=== PATIENT | male | born 1970 | race Caucasian/White ===

== ENCOUNTER 2020-07-22 13:57 | Emergency (ER) | payer OTHER, SELFPAY ==
--- NOTE | ~2020-07-22 | CT_ITS ---
EXAMINATION: CT HEAD WITHOUT CONTRAST CLINICAL INFORMATION: Dizziness. Frequent falls. COMPARISON: Head CT 12/05/2017 TECHNIQUE: Contiguous axial imaging was performed from the skull base to vertex without intravenous administration of contrast. This CT examination was performed using dose optimization techniques as appropriate, variously including the following: *Automated exposure control *Adjustment of mA and/or kV according to patient size (this includes techniques or standardized protocols for targeted exams where dose is matched to indication/reason for exam; i.e. extremities or head) *Use of iterative reconstruction technique DLP: 766 mGy-cm FINDINGS: There is no evidence of acute intracranial hemorrhage or territorial infarction. No abnormal mass effect or midline shift is appreciated. Murdock-white differentiation is well preserved. No extra-axial fluid collections. The ventricular system and cortical sulci are normal in size for age. 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 There are areas of low density in the periventricular and subcortical white matter, most consistent with sequelae of microvascular ischemic change. The osseous structures and soft tissues are normal. The visualized paranasal sinuses and mastoid air cells are well aerated. CT/CT head/brain wo con IMPRESSION: Stable examination demonstrating no CT evidence for acute intracranial abnormality.
[2020-07-22 14:09] VITALS: BP 115/53; PULSE 81; RESP 18; TEMP 36.8; O2SAT 97; BMI 35.2
--- NOTE | 2020-07-22 16:15 | ED.DIZZY ---
HPI - Dizziness General Chief Complaint: Dizziness Stated Complaint: DIZZY Time Seen by Provider: 07/22/20 16:15 Source: patient Mode of arrival: ambulatory Limitations: no limitations History of Present Illness HPI Narrative: Patient has history of hypertension depression been feeling dizzy for last 4 months fell couple of times because of dizziness. Also complaining of tinnitus in both ears. No palpitation no chest pain no loss of consciousness no history of significant head injury. Patient is off balance when he walks and that is the reason he falls no headache no nausea no vomiting no tremors no focal weakness no visual problems Related Data Previous Rx's Medication Instructions Recorded meclizine 25 mg PO TID PRN #30 tab 07/22/20 Allergies Allergy/AdvReac Type Severity Reaction Status Date / Time No Known Allergies Allergy Unverified 12/06/19 15:17 [No Known Allergies*] seasonal Allergy Unknown Sneezing Uncoded 07/22/20 14:08 Review of Systems Review of Systems: Constitutional : No Weight loss, No Fever, No Chills ENT/Mouth : No sore throat, No Rhinorrhea Eyes: No Eye Pain, No Swelling Cardiovascular : No Chest Pain, no palpitations Respiratory : No Cough, No Sputum, no shortness of breath Gastrointestinal : no Nausea, No Vomiting, No Diarrhea, No abdominal Pain, no black stools Genitourinary : No Dysuria, No Urinary Frequency Musculoskeletal : No joint pain, No Myalgias, No Joint Swelling Skin : No Skin Lesions, No rash Neuro : No Weakness, No Numbness, ++ Dizziness, No Headache Psych : No Anxiety/Panic, No Depression Heme/Lymph: No Bruising, No Lymphadenopathy Endocrine : No Polyuria, No Polydipsia All other systems reviewed and are negative [facility] Social History Social History Alcohol intake: never Smoking Status: Never smoker Use of substances other than those prescribed or required for medical reasons: No Advance Directives: Yes Advance Directives Information Provided: Yes Advance Directives on File: No Physical Exam Vital Signs: Vital Signs: Last Vital Signs Temp 98.2 F 07/22/20 14:09 Pulse 76 07/22/20 18:39 Resp 16 07/22/20 18:39 BP 111/74 07/22/20 18:39 Pulse Ox 99 07/22/20 18:39 Body Mass Index 35.2 Appearance: Alert. Oriented X3. No acute distress. Dizziness on turning his head right side Eyes: PERRLA, No Nystagmus ENT: Pharynx normal. Oral Mucosa moist Neck: Normal inspection. Neck supple. CVS: Normal heart rate and rhythm. Pulses normal. Respiratory: No respiratory distress. Equal air entry bilateral, no wheezing/rales/rhonchi Abdomen: Soft and nontender. Bowel sounds are present, no mass palpable, no CVA tenderness Skin: Skin warm and dry. Normal skin color. Normal skin turgor. Extremities: No lower extremity edema. No calf tenderness Neuro: Oriented X 3. No motor deficit. No sensory deficit.No cerebellar signs , cranial nerves II-XII intact cerebellar signs intact MDM - Dizziness MDM Narrative Medical decision making narrative: Patient's symptoms likely benign positional vertigo clinically. No signs of central lesions. CT scan head is negative. Patient feeling much better after meclizine able to ambulate. Orthostatics are normal Lab Data Attestation: I reviewed the patient's lab results. Result diagrams: 07/22/20 16:33 07/22/20 16:33 Labs: Lab Results 07/22/20 07/22/20 07/22/20 Range/Units 16:33 16:33 16:33 WBC 10.8 (4.8-10.8) X10*3/uL RBC 4.31 L (4.60-5.80) X10*6/uL Hgb 11.6 L (14.0-18.0) g/dl Hct 35.1 L (42-52) % MCV 81.4 (80-98) fL MCH 26.9 L (27.0-33.0) pg MCHC 33.0 (31.0-36.0) g/dl RDW 14.3 (11.0-16.0) % Plt Count 228 (160-400) X10*3/uL MPV 9.2 L (9.4-12.4) fL Immature Gran % (Auto) 0.3 (0.0-0.4) % Neut % (Auto) 62.0 (45-73) % Lymph % (Auto) 28.6 (20-40) % [place] % (Auto) 7.0 (2-11) % Eos % (Auto) 1.3 (0-4) % Baso % (Auto) 0.8 (0-2) % Lymph # (Auto) 3.1 (1.2-4.9) X10*3/uL [place] # (Auto) 0.8 (0.1-1.2) X10*3/uL Eos # (Auto) 0.1 (0.0-0.4) X10*3/uL Baso # (Auto) 0.1 (0.0-0.2) X10*3/uL Abs Immat Gran (auto) 0.03 (0.00-0.03) X10*3/uL Absolute Neuts (auto) 6.7 (2.0-8.3) X10*3/uL Absolute Nucleated RBC 0.000 (0.0-0.012) X10*3/uL Nucleated RBC % (auto) 0.0 (0.0-0.2) /100WBC PT 13.3 H (10.8-13.0) SEC INR 1.1 (0.9-1.1) Sodium 137 (135-145) mmol/L Potassium 3.8 (3.3-5.1) mmol/L Chloride 101 (96-108) mmol/L Carbon Dioxide 26 (22-29) mmol/L Anion Gap 14 (12-20) BUN 8 L (9-16) mg/dL Creatinine 0.93 (0.5-1.4) mg/dL Estim Creat Clear Calc 115.9 Estimated GFR > 60 Random Glucose 79 (60-115) mg/dL Calcium 9.0 (8.4-10.2) mg/dL Total Bilirubin 0.6 (0.0-1.0) mg/dL AST 11 (5-37) U/L ALT < 6 (0-40) U/L Alkaline Phosphatase 113 (39-117) U/L Total Protein 6.9 (6.5-8.0) g/dL Albumin 4.0 (3.5-5.0) g/dL ECG Data Attestation: I personally reviewed and interpreted this ECG as follows: Interpretation: Normal sinus rhythm heart rate 71 beats per minute normal intervals normal axis no acute ST T wave changes impression normal EKG Discharge Plan Discharge Clinical Impression: Benign paroxysmal positional vertigo Patient Disposition: Home, Self-Care Instructions: Benign Paroxysmal Positional Vertigo (ED) Additional Instructions: Care and cautions as advised. Take medication for severe dizziness. Follow with PCP if not better Prescriptions: New meclizine 25 mg tablet 25 mg PO TID PRN (Reason: dizziness) Qty: 30 RF: 0 Interventions: ED Discharge Assessment Last Done: 07/22/20 18:41 Discharge Date/Time: 07/22/20 18:46
--- NOTE | 2020-07-22 16:16 | ECG_ITS ---
Test Reason : DIZZINESS Blood Pressure : / mmHG Vent. Rate : 071 BPM Atrial Rate : 071 BPM P-R Int : 192 ms QRS Dur : 094 ms QT Int : 422 ms P-R-T Axes : 015 019 045 degrees QTc Int : 458 ms Normal sinus rhythm Normal ECG When compared with ECG of 08-JAN-2019 11:53, No significant change was found Referred By: Venancio Davies Electronically Signed By:LEOPOLDO SANTANA
[2020-07-22 16:37] LABS: MANUAL DIFF FLAG NO
[2020-07-22 16:42] LABS: Basophils Absolute Auto 0.1 X10*3/uL (0.0-0.2); Basophils Percent Auto 0.8 % (0-2); Eosinophils Absolute Auto 0.1 X10*3/uL (0.0-0.4); Eosinophils Percent Auto 1.3 % (0-4); Hematocrit 35.1 % (42-52); Hemoglobin 11.6 g/dl (14.0-18.0); Imm Gran Abs Auto 0.03 X10*3/uL (0.00-0.03); Imm Gran Pct Auto 0.3 % (0.0-0.4); Lymphocytes Absolute Auto 3.1 X10*3/uL (1.2-4.9); Lymphocytes Percent Auto 28.6 % (20-40); Mean Corpuscular Hemoglobin 26.9 pg (27.0-33.0); Mean Corpuscular Volume 81.4 fL (80-98); Mean Platelet Volume 9.2 fL (9.4-12.4); Monocytes Absolute Auto 0.8 X10*3/uL (0.1-1.2); Neutrophils Absolute Auto 6.7 X10*3/uL (2.0-8.3); Platelet Count 228 X10*3/uL (160-400); Red Blood Count 4.31 X10*6/uL (4.60-5.80); Red Cell Distribution Width 14.3 % (11.0-16.0); White Blood Count 10.8 X10*3/uL (4.8-10.8)
[2020-07-22 16:57] LABS: INTERNATIONAL NORM RATIO 1.1 (0.9-1.1); Prothrombin Time 13.3 SEC (10.8-13.0)
[2020-07-22 17:09] LABS: Alanine Aminotransferase < 6 U/L (0-40); Alkaline Phosphatase 113 U/L (39-117); Anion Gap 14 (12-20); Aspartate Amino Transferase 11 U/L (5-37); Bilirubin Total 0.6 mg/dL (0.0-1.0); Blood Urea Nitrogen 8 mg/dL (9-16); Carbon Dioxide 26 mmol/L (22-29); Chloride 101 mmol/L (96-108); Creatinine Clr Calc Pharmacy 115.9; Estimated Glomerular Filt Rate > 60; Glucose Random 79 mg/dL (60-115); Potassium 3.8 mmol/L (3.3-5.1); Sodium 137 mmol/L (135-145); Total Protein 6.9 g/dL (6.5-8.0)
[2020-07-22] MEDS: Meclizine HCl 25 MG TABLET 50 MG PO (17:41)
[2020-07-22 17:47] VITALS: BP 108/47; PULSE 71
[2020-07-22 17:48] VITALS: BP 117/56; PULSE 68
[2020-07-22 17:49] VITALS: BP 102/43; PULSE 74
[2020-07-22 18:39] VITALS: BP 111/74; PULSE 76; RESP 16; O2SAT 99
== END 2020-07-22 18:46 | disposition home or self-care (01) ==
PROVIDERS: Emergency Provider Internal Medicine
DX: H81.10 Benign paroxysmal vertigo, unspecified ear (principal); H93.13 Tinnitus, bilateral; I10 Essential (primary) hypertension
CPT/HCPCS: 36415; 70450; 80053; 85025; 85610; 93005; 99284; 99285

== ENCOUNTER 2020-10-03 08:44 | Outpatient (REF) | payer OTHER, SELFPAY ==
--- NOTE | ~2020-10-03 | XR_ITS ---
EXAMINATION: KNEE X-RAY CLINICAL INFORMATION: Pain COMPARISON: None TECHNIQUE: Standing AP view of both knees and lateral sunrise view of the right FINDINGS: Right knee: Bone alignment is normal. No fracture or dislocation is seen. There is arthritis at the medial and lateral femoral tibial and patellofemoral joints with joint space narrowing and small osteophytes. There is a large joint effusion. Standing AP view of the left knee demonstrates small osteophytes at the medial femoral tibial joint. XR/XR knee RT 2V IMPRESSION: Right knee: Arthritis and large pleural effusion
--- NOTE | ~2020-10-03 | XR_ITS ---
EXAMINATION: KNEE X-RAY CLINICAL INFORMATION: Pain COMPARISON: None TECHNIQUE: Standing AP view of both knees and lateral sunrise view of the right FINDINGS: Right knee: Bone alignment is normal. No fracture or dislocation is seen. There is arthritis at the medial and lateral femoral tibial and patellofemoral joints with joint space narrowing and small osteophytes. There is a large joint effusion. Standing AP view of the left knee demonstrates small osteophytes at the medial femoral tibial joint. XR/XR knee standing BI IMPRESSION: Right knee: Arthritis and large pleural effusion
== END 2020-10-03 08:45 | disposition home or self-care (01) ==
LOC: HO.HOSX 08:44
PROVIDERS: Visit Provider Orthopaedic Surgery
DX: M17.11 Unilateral primary osteoarthritis, right knee (principal)
CPT/HCPCS: 73560; 73565; 99212

== ENCOUNTER 2021-03-27 13:14 | Outpatient (REF) | payer OTHER, SELFPAY ==
[2021-03-27 14:21] LABS: Binax Internal Control QC Valid; Binax Now Covid-19 Ag Negative (Negative)
== END 2021-03-27 13:15 | disposition home or self-care (01) ==
LOC: HO.LAB 13:14
PROVIDERS: Visit Provider Internal Medicine
DX: Z20.822 Contact with and (suspected) exposure to COVID-19 (principal)
CPT/HCPCS: 36415; C9803

== ENCOUNTER → 2022-01-18 08:10 | Outpatient (BNVA) | payer OTHER, SELFPAY | PROVIDERS: PCP Family Medicine; Visit Provider Anesthesiology | DX: M96.1 Postlaminectomy syndrome, not elsewhere classified (principal); G89.4 Chronic pain syndrome | CPT/HCPCS: 99202 ==

== ENCOUNTER 2022-02-01 09:19 | Emergency (ER) | payer OTHER, SELFPAY ==
[2022-02-01 09:23] VITALS: BP 171/59; PULSE 98; RESP 20; TEMP 36.6; O2SAT 98; BMI 33.5
--- NOTE | 2022-02-01 10:03 | ED.GENADULT ---
HPI - General Adult General Chief complaint: General Medical Stated complaint: Rib fx-pcp sent for medication Time Seen by Provider: 02/01/22 10:01 Source: patient Mode of arrival: ambulatory Limitations: no limitations History of Present Illness HPI narrative: Patient is a 51-year-old male presents emergency department for evaluation of right rib pain. He reports a fall a few days ago, sustaining injury to the right side of the chest. He was seen at [facility], states the 10th rib on the right is fractured. Was given a prescription for hydrocodone for which he has ran out of. He was unable to be seen by his primary care provider at this time. The pain persist despite use of conservative treatment resting, ice, bracing, incentive spirometer. Denies any shortness of breath, difficulty breathing, cough Related Data Home Medications Medication Instructions Recorded Confirmed amlodipine 5 mg tablet 5 mg PO DAILY 08/19/20 01/04/22 atenolol 25 mg tablet 25 mg PO BID 08/19/20 01/04/22 atorvastatin 20 mg tablet 20 mg PO DAILY 08/19/20 01/04/22 duloxetine 60 mg capsule,delayed mg PO 08/19/20 01/04/22 release omeprazole 40 mg capsule,delayed 40 mg PO DAILY 08/19/20 01/04/22 release celecoxib 100 mg capsule 100 mg PO BID 12/14/21 01/04/22 clonazepam 1 mg tablet 1 mg PO Q8H 12/14/21 01/04/22 Previous Rx's Medication Instructions Recorded cyclobenzaprine 10 mg tablet 10 mg PO TID PRN muscle spasm #30 01/04/22 tabs prednisone 10 mg tablet See Rx Instructions PO DAILY 10 01/26/22 days #28 tabs hydrocodone 5 mg-acetaminophen 325 1 tab PO Q4-6H PRN pain 3 days #12 02/01/22 mg tablet tabs Allergies Allergy/AdvReac Type Severity Reaction Status Date / Time No Known Allergies Allergy Verified 01/18/22 08:36 [No Known Allergies*] seasonal Allergy Unknown Sneezing Uncoded 01/18/22 08:36 Review of Systems Review of Systems: Chest: Positive lateral chest wall pain Yes all other systems are reviewed and are negative PMFSH Past Medical History Attestation statement: The following information was validated with the patient. Source: old records reviewed Medical History Arthritis BP (high blood pressure) Surgical History H/O knee surgery History of hip replacement History of spinal fusion Family History Family History Father No problems noted. Mother No problems noted. Social History Social History Housing: House Alcohol intake: never Patient Tobacco Use Status: Current everyday Tobacco user Tobacco use type: Cigarette Cigarette Packs Per Day: 1 e-Cigarette/Vaping Use: Never Used Second Hand Smoke Exposure: No Advance Directives: No Advance Directives Information Provided: Yes Current occupational status: disabled Current occupation: rt hand Current occupational exposures/hazards: No Cognitive needs: No Hearing needs: No Vision needs: No Physical Exam ED Vital Signs: Vital Signs - 24 hr 02/01/22 09:23 Temperature 98 F Pulse Rate 98 Respiratory Rate 20 Blood Pressure 171/59 H Pulse Oximetry 98 Oxygen Delivery Method Room Air BMI result Body Mass Index 33.5 Appearance: Alert.?Oriented to person, place and time. No acute distress.?Normal affect. Eyes: Pupils equal, round and reactive to light.? ENT: Pharynx normal.?? Neck: Normal inspection.? Neck supple.?? CVS: Heart sounds normal. Normal heart rate and rhythm.? Pulses normal.?? Respiratory: No respiratory distress.? Lung sounds clear to auscultation bilaterally. Chest wall tenderness on the right, no deformity, no crepitus. Abdomen: Soft and non-tender. Normoactive bowel sounds. Skin: Skin warm and dry.? Normal skin color.? Extremities: No lower extremity edema.? Neuro: Moves all extremities spontaneously. Sensation intact bilaterally. No focal neuro deficits. Ambulates with normal steady gait. Course Course Course Narrative: Patient is a 51-year-old male with a past medical history of arthritis and hypertension presenting to emergency department for evaluation of rib pain. Sustained a right 10th rib fracture recently according to discharge papers from [facility]. Unable to follow-up with his primary care in a timely fashion, and has no hydrocodone left to take. Received his prescription 01/30/2022. Mass Pat reviewed. He is in no apparent respiratory distress, speaking clear full sentences. No hypoxia or tachypnea. Discussed anticipated recovery time with rib fractures, rest, ice, heat, bracing, incentive spirometer. Prescription for hydrocodone-acetaminophen was sent to patient's pharmacy, 3 day supply. Advised that he must follow up with his primary care provider. Advised to return to the emergency department any new or worsening symptoms or concerns. All questions were answered. Patient was discharged home in stable condition. Medical Decision Making Medical Records Medical records reviewed: Yes I reviewed the patient's medical records. Discharge Plan Discharge Clinical Impression: Fractured rib Patient Disposition: Home, Self-Care Instructions: Rib Fracture (ED) Additional Instructions: Continue using incentive spirometer, avoid bending, twisting, heavy lifting. Brace the side of your chest with a pill or towel when coughing sneezing or with movements that are painful Prescription for pain medication was sent to your pharmacy, as we discussed you have only been given a 3 day supply. You may also apply ice/heat to the area for 10-15 minutes 4-6 times daily. Pain from rib fractures for some people can last up to 6 weeks. Please contact your primary care provider to arrange for a follow-up visit within 3 days. Return to the emergency department any new or worsening symptoms or concerns. Prescriptions: New hydrocodone-acetaminophen 5-325 mg tablet 1 tab PO Q4-6H PRN (Reason: pain) 3 Days Qty: 12 0RF Rx Instructions: Partial Fill upon patient request. No Action prednisone 10 mg tablet See Rx Instructions PO DAILY 10 Days Qty: 28 0RF Rx Instructions: 4 tabs daily for 4 days, 3 tabs daily for 2 days, 2 tabs daily for 2 days, 1 tab daily for 2 days PO daily; omeprazole 40 mg capsule,delayed release(DR/EC) 40 mg PO DAILY atenolol 25 mg tablet 25 mg PO BID atorvastatin 20 mg tablet 20 mg PO DAILY amlodipine 5 mg tablet 5 mg PO DAILY duloxetine 60 mg capsule,delayed release(DR/EC) PO clonazepam 1 mg tablet 1 mg PO Q8H Rx Instructions: take 1 tablet by mouth at 8am, take 1 tablet at noon, take 2 tablets at bedtime. cyclobenzaprine 10 mg tablet 10 mg PO TID PRN (Reason: muscle spasm) Qty: 30 0RF celecoxib 100 mg capsule 100 mg PO BID Referrals: Jose E Dye MD [Primary Care Provider] - Interventions: ED Discharge Assessment Last Done: 02/01/22 10:33 Discharge Date/Time: 02/01/22 10:34
== END 2022-02-01 10:34 | disposition home or self-care (01) ==
PROVIDERS: Emergency Provider Emergency Medicine Emergency Medical Services; PCP Family Medicine
DX: R07.81 Pleurodynia (principal); S22.31XD Fracture of one rib, right side, subsequent encounter for fracture with routine healing; W19.XXXD Unspecified fall, subsequent encounter
CPT/HCPCS: 99283

== ENCOUNTER 2022-02-03 08:02 | Outpatient (REF) | payer OTHER, SELFPAY ==
[2022-02-03 11:09] LABS: MANUAL DIFF FLAG NO
[2022-02-03 11:38] LABS: Basophils Absolute Auto 0.1 X10*3/uL (0.0-0.2); Basophils Percent Auto 0.4 % (0-2); Eosinophils Absolute Auto 0.2 X10*3/uL (0.0-0.4); Eosinophils Percent Auto 1.3 % (0-4); Hematocrit 40.5 % (42.0-52.0); Hemoglobin 12.8 g/dl (14.0-18.0); Imm Gran Abs Auto 0.12 X10*3/uL (0.00-0.03); Imm Gran Pct Auto 1.1 % (0.0-0.4); Lymphocytes Absolute Auto 2.7 X10*3/uL (1.2-4.9); Lymphocytes Percent Auto 24.4 % (20-40); Mean Corpuscular HGB Conc 31.6 g/dl (31.0-36.0); Mean Corpuscular Hemoglobin 29.2 pg (27.0-33.0); Mean Corpuscular Volume 92.3 fL (80.0-98.0); Mean Platelet Volume 10.3 fL (9.4-12.4); Monocytes Percent Auto 8.8 % (2-11); Neutrophils Absolute Auto 7.2 x10*3/uL (2.0-8.3); Platelet Count 239 X10*3/uL (160-400); Red Blood Count 4.39 X10*6/uL (4.60-5.80); Red Cell Distribution Width 14.3 % (11.0-16.0); White Blood Count 11.2 X10*3/uL (4.8-10.8)
[2022-02-03 11:39] LABS: Appearance Urine Clear; Color Urine Yellow; Glucose Urine UA 100 mg/dL (Negative); Leukocyte Esterase Urine Negative (Negative); Nitrite Urine Negative (Negative); Specific Gravity - Urine 1.015 (1.005-1.025); Urine Blood Negative (Negative); Urine Ketones Negative (Negative); Urine Protein Negative (Neg-Trace)
[2022-02-03 12:07] LABS: Creatinine Urine 37.29 mg/dL; Microalbumin Urine < 5.0 mg/L
[2022-02-03 12:17] LABS: Alanine Aminotransferase 20 U/L (0-40); Albumin Level 4.1 g/dL (3.5-5.0); Alkaline Phosphatase 79 U/L (39-117); Anion Gap 18 (12-20); Aspartate Amino Transferase 15 U/L (5-37); Bilirubin Total 0.4 mg/dL (0.0-1.0); Blood Urea Nitrogen 14 mg/dL (9-16); Calcium 9.5 mg/dL (8.4-10.2); Carbon Dioxide 28 mmol/L (22-29); Chloride 99 mmol/L (96-108); Cholesterol 152 mg/dL; Estimated Glomerular Filt Rate > 60; Glucose Fasting 181 mg/dL (60-99); HDL Cholesterol 38 mg/dL; LDL Cholesterol Calculated 63 mg/dl; Sodium 141 mmol/L (135-145); Total Protein 6.4 g/dL (6.5-8.0); Triglycerides 258 mg/dL
[2022-02-03 12:33] LABS: Prostate Specific Antigen Scr 0.58 ng/mL (<0.05-4.0); TSH reflex Free T4 1.85 uIU/mL (0.32-4.0)
== END 2022-02-03 08:03 | disposition home or self-care (01) ==
LOC: HO.WFDLDS 08:02
PROVIDERS: Visit Provider Family Medicine
DX: Z00.00 Encounter for general adult medical examination without abnormal findings (principal); Z12.5 Encounter for screening for malignant neoplasm of prostate; I10 Essential (primary) hypertension
CPT/HCPCS: 36415; 80053; 80061; 81003; 82043; 84153; 84443; 85025

== ENCOUNTER 2022-02-10 05:58 | Outpatient (REF) | payer OTHER, SELFPAY ==
--- NOTE | ~2022-02-10 | XR_ITS ---
EXAMINATION: XR RIBS, RIGHT WITH CHEST CLINICAL INFORMATION: Pleural pain. COMPARISON: Chest film dated 12/05/2017. TECHNIQUE: 5 views of the ribs and single view of the chest. FINDINGS: Chest x-ray suggests density at the right base which may represent infiltrate also right midlung zone. There is no pneumothorax. There is no effusion. The left lung is grossly clear. Detailed imaging of the ribs demonstrates findings which suggest fracture of the distal aspect of the 10th rib. Also some irregularity at the costochondral junction of the 7th rib. XR/XR ribs RT min 3V w CXR1V IMPRESSION: Fracture of the distal 10th rib. Also possible costochondral junction fracture of the 7th rib. No underlying pneumothorax or effusion but the lung val[place] show overall opacity in the right mid to lower lung zone which is new from study of 2018. These may represent areas of infiltrate. I would at least recommend a follow-up film here 4-6 weeks to reassess. Consider CT to fully evaluate at this time.
--- NOTE | ~2022-02-10 | XR_ITS ---
EXAMINATION: XR LUMBOSACRAL SPINE CLINICAL INFORMATION: Low back pain. COMPARISON: None TECHNIQUE: 4 views AP and lateral. FINDINGS: Tremayne and screws bridge L4 to L5. There is no evidence for hardware failure. There is no listhesis or compression injury. Otherwise degenerative changes are noted here in the lumbosacral spine with loss of disc height and some bony spurring in the endplates. Mild scoliosis convex left apex at L3 is noted. The SI joints are grossly patent. XR/XR lumbar spine 2-3V IMPRESSION: Hardware in place at L4-L5. No evidence for hardware failure here. No listhesis or compression injury is seen. Some degenerative changes are noted.
== END 2022-02-10 05:59 | disposition home or self-care (01) ==
LOC: HO.XRAY 05:58
PROVIDERS: PCP Family Medicine; Visit Provider Family Medicine
DX: M54.50 Low back pain, unspecified (principal); R07.81 Pleurodynia
CPT/HCPCS: 71101; 72100

== ENCOUNTER 2022-03-26 10:30 | Emergency (ER) | payer OTHER, SELFPAY ==
[2022-03-26 10:34] VITALS: BP 173/60; PULSE 100; RESP 20; TEMP 36.3; O2SAT 99; BMI 33.0
== END 2022-03-26 14:11 | disposition left against medical advice (07) ==
PROVIDERS: Emergency Provider Emergency Medicine; PCP Family Medicine
DX: M54.50 Low back pain, unspecified (principal)
CPT/HCPCS: 99281

== ENCOUNTER → 2022-03-26 12:48 | Outpatient (BNV) | payer OTHER, SELFPAY | PROVIDERS: PCP Family Medicine; Visit Provider Internal Medicine | DX: D64.9 Anemia, unspecified (principal) | CPT/HCPCS: 99204; 99213 ==

== ENCOUNTER 2022-03-26 13:34 | Emergency (ER) | payer OTHER, SELFPAY ==
[2022-03-26 15:02] VITALS: BP 167/62; PULSE 95; RESP 20; TEMP 36.1; O2SAT 98; BMI 33.4
--- NOTE | 2022-03-26 15:02 | ED.BACK ---
HPI - Back Pain/Injury General Chief Complaint: Back Pain/Injury <Kala Diaz CNP - Last Filed: 03/26/22 15:07> Stated Complaint: back pain <Kala Diaz CNP - Last Filed: 03/26/22 15:07> Time Seen by Provider: 03/26/22 15:10 <Kala Diaz CNP - Last Filed: 03/26/22 15:07> History of Present Illness HPI Narrative: patient complains of flare up of chronic low back pain with sore back not controlled with Tylenol or Motrin, no new injury, he did see his doctor about this who recently got an MRI which shows disc herniations at several levels and has been referred to a neurosurgeon His doctor tried prednisone which has helped in the past but is no longer helpful and it has not relieved the pain He denies any change to bowel or bladder there is no incontinence no dysuria no new constipation, he has no weakness no loss of sensation no recent injuries no fever and denies IV drug use <MARIANNE Vides - Last Filed: 03/26/22 16:09> Related Data Home Medications: Home Medications Medication Instructions Recorded Confirmed amlodipine 5 mg tablet 5 mg PO DAILY 08/19/20 03/26/22 atenolol 25 mg tablet 25 mg PO BID 08/19/20 03/26/22 atorvastatin 20 mg tablet 20 mg PO DAILY 08/19/20 03/26/22 duloxetine 60 mg capsule,delayed 60 mg PO DAILY 08/19/20 03/26/22 release omeprazole 40 mg capsule,delayed 40 mg PO DAILY 08/19/20 03/26/22 release celecoxib 100 mg capsule 100 mg PO BID 12/14/21 03/26/22 clonazepam 1 mg tablet 1 mg PO Q8H 12/14/21 03/26/22 Previous Rx's Medication Instructions Recorded cyclobenzaprine 10 mg tablet 10 mg PO TID PRN muscle spasm #30 01/04/22 tabs hydrocodone 5 mg-acetaminophen 325 1 tab PO Q8H PRN pain 5 days #15 02/09/22 mg tablet tabs lidocaine 5 % topical patch 1 patch topical DAILY 15 days #15 02/09/22 (Lidoderm) ea prednisone 20 mg tablet 40 mg PO DAILY 5 days #10 tabs 03/12/22 prednisone 10 mg tablet See Rx Instructions PO DAILY 10 03/19/22 days #28 tabs prednisone 20 mg tablet See Rx Instructions PO DAILY #12 03/24/22 tabs cyclobenzaprine 5 mg tablet 5 mg PO TID PRN muscle spasm #14 03/26/22 tabs cyclobenzaprine 5 mg tablet 5 mg PO TID PRN muscle spasm #14 03/26/22 tabs oxycodone 5 mg tablet 5 mg PO Q6H PRN pain #12 tabs 03/26/22 oxycodone 5 mg tablet 5 mg PO Q6H PRN pain #14 tabs 03/26/22 <Kala Diaz CNP - Last Filed: 03/26/22 15:07> Allergies/Adverse Reactions: Allergies Allergy/AdvReac Type Severity Reaction Status Date / Time No Known Allergies Allergy Verified 03/26/22 13:05 [No Known Allergies*] seasonal Allergy Unknown Sneezing Uncoded 03/26/22 13:05 <Kala Diaz CNP - Last Filed: 03/26/22 15:07> [facility] Past Medical History Source: nursing notes reviewed <MARIANNE Vides - Last Filed: 03/26/22 16:09> Medical History: Medical History Arthritis BP (high blood pressure) <Kala Diaz CNP - Last Filed: 03/26/22 15:07> Surgical History: Surgical History H/O knee surgery History of hip replacement History of spinal fusion <Kala Diaz CNP - Last Filed: 03/26/22 15:07> Family History Family History: Family History Father No problems noted. Mother No problems noted. <Kala Diaz CNP - Last Filed: 03/26/22 15:07> Social History Social History: Social History (Updated 03/26/22 @ 13:05 by Cassandra Jarrell) Household Members: Family Housing: House Alcohol intake: never Patient Tobacco Use Status: Current everyday Tobacco user Tobacco use type: Cigarette Cigarette Packs Per Day: 1 e-Cigarette/Vaping Use: Never Used Second Hand Smoke Exposure: No Substance Use Type: Marijuana Advance Directives: No Advance Directives Information Provided: Yes Current occupational status: disabled Current occupation: rt hand Current occupational exposures/hazards: No Cognitive needs: No Hearing needs: No Vision needs: No <Kala Ryannereyna Diaz CNP - Last Filed: 03/26/22 15:07> Physical Exam Vital Signs: Vital Signs: Last Vital Signs Temp 97 F 03/26/22 15:02 Pulse 95 03/26/22 15:02 Resp 20 03/26/22 15:02 BP 167/62 H 03/26/22 15:02 Pulse Ox 98 03/26/22 15:02 O2 Del Method 03/26/22 15:02 BMI result Body Mass Index 33.4 <Kala Ryannereyna Diaz CNP - Last Filed: 03/26/22 15:07> Vital Signs: Last Vital Signs Temp 97 F 03/26/22 15:02 Pulse 95 03/26/22 15:02 Resp 20 03/26/22 15:02 BP 167/62 H 03/26/22 15:02 Pulse Ox 98 03/26/22 15:02 O2 Del Method 03/26/22 15:02 BMI result Body Mass Index 33.4 <MARIANNE Vides - Last Filed: 03/26/22 16:09> general appearance no acute distress cooperative Head is normocephalic atraumatic Neck is supple nontender Respiratory no distress Chest wall nontender Abdomen soft nontender The back had lower lumbar paraspinal soft tissue tenderness, skin of the back was normal no redness no wounds no rash Extremities full range of motion x4 Motor is 5/5 x4, sensation intact and symmetrical, gait and balance are normal <MARIANNE Vides - Last Filed: 03/26/22 16:09> Course Course Course Narrative: This is an RME: Additional HPI, ROS, PE not included below will be deferred to primary provider. Patient is a 52 old male who presents to the emergency department requesting oxycodone or Vicodin for management of acute on chronic lower back pain as it is unbearable, he reports a history of spinal fusion surgery in the past but it has failed. Reports he has an appointment with neurosurgery at the end of this month. He states that he is currently being followed by his primary care doctor as well as pain management, and a back specialist, had a recent MRI. Currently states he is only prescribed prednisone taper for management, but he states this is not helping. Denies numbness, tingling of the perineum her bilateral lower extremities, denies bladder bowel dysfunction, denies any injury, denies genitourinary symptoms, denies fevers or chills. He is ambulatory with a steady gait <Kala Diaz CNP - Last Filed: 03/26/22 15:07> This is an RME: Additional HPI, ROS, PE not included below will be deferred to primary provider. Patient is a 52 old male who presents to the emergency department requesting oxycodone or Vicodin for management of acute on chronic lower back pain as it is unbearable, he reports a history of spinal fusion surgery in the past but it has failed. Reports he has an appointment with neurosurgery at the end of this month. He states that he is currently being followed by his primary care doctor as well as pain management, and a back specialist, had a recent MRI. Currently states he is only prescribed prednisone taper for management, but he states this is not helping. Denies numbness, tingling of the perineum her bilateral lower extremities, denies bladder bowel dysfunction, denies any injury, denies genitourinary symptoms, denies fevers or chills. He is ambulatory with a steady gait Patient who in the past was able to control flare-ups of his back pain with prednisone, recent prescription did not help and he is here for pain without neurologic deficit or any new incontinence or change to bowel or bladder and patient is prescribed analgesics and muscle relaxer and will follow with his doctor and neurosurgeon and ambulated easily from the department <MARIANNE Vides - Last Filed: 03/26/22 16:09> Discharge Plan Discharge Clinical Impression: Back pain <Kala Diaz CNP - Last Filed: 03/26/22 15:07> Patient Disposition: Home, Self-Care <Kala Diaz CNP - Last Filed: 03/26/22 15:07> Additional Instructions: I wrote for muscle relaxer and pain medication Follow with neurosurgeon and your doctor Return any time for weakness incontinence any worse condition or any concerns <Kala Diaz CNP - Last Filed: 03/26/22 15:07> Prescriptions: New oxycodone 5 mg tablet 5 mg PO Q6H PRN (Reason: pain) Qty: 14 0RF Rx Instructions: Partial Fill upon patient request. cyclobenzaprine 5 mg tablet 5 mg PO TID PRN (Reason: muscle spasm) Qty: 14 0RF oxycodone 5 mg tablet 5 mg PO Q6H PRN (Reason: pain) Qty: 12 0RF Rx Instructions: Partial Fill upon patient request. cyclobenzaprine 5 mg tablet 5 mg PO TID PRN (Reason: muscle spasm) Qty: 14 0RF No Action prednisone 20 mg tablet 40 mg PO DAILY 5 Days Qty: 10 0RF prednisone 20 mg tablet See Rx Instructions PO DAILY Qty: 12 0RF Rx Instructions: Take 3 tabs x 1 day, then 2 tabs x 3 days, then 1 tab x 3 days then 1/2 tab x 4 days Then stop. PO, Daily omeprazole 40 mg capsule,delayed release(DR/EC) 40 mg PO DAILY atenolol 25 mg tablet 25 mg PO BID atorvastatin 20 mg tablet 20 mg PO DAILY amlodipine 5 mg tablet 5 mg PO DAILY duloxetine 60 mg capsule,delayed release(DR/EC) 60 mg PO DAILY clonazepam 1 mg tablet 1 mg PO Q8H Rx Instructions: take 1 tablet by mouth at 8am, take 1 tablet at noon, take 2 tablets at bedtime. cyclobenzaprine 10 mg tablet 10 mg PO TID PRN (Reason: muscle spasm) Qty: 30 0RF celecoxib 100 mg capsule 100 mg PO BID prednisone 10 mg tablet See Rx Instructions PO DAILY 10 Days Qty: 28 0RF Rx Instructions: 4 tabs daily for 4 days, 3 tabs daily for 2 days, 2 tabs daily for 2 days, 1 tab daily for 2 days PO daily; hydrocodone-acetaminophen 5-325 mg tablet 1 tab PO Q8H PRN (Reason: pain) 5 Days Qty: 15 0RF Rx Instructions: [facility] verified. Partial refill upon request. lidocaine [Lidoderm] 5 % adhesive patch,medicated 1 patch topical DAILY 15 Days Qty: 15 0RF Rx Instructions: leave on most painful area for up to 12 hrs <Kala Diaz CNP - Last Filed: 03/26/22 15:07> Interventions: ED Discharge Assessment Last Done: 03/26/22 16:08 <Kala Diaz CNP - Last Filed: 03/26/22 15:07>
== END 2022-03-26 16:09 | disposition home or self-care (01) ==
PROVIDERS: Emergency Provider Emergency Medicine; PCP Family Medicine
DX: M54.50 Low back pain, unspecified (principal); Z79.899 Other long term (current) drug therapy; F17.210 Nicotine dependence, cigarettes, uncomplicated; Z71.6 Tobacco abuse counseling
CPT/HCPCS: 99282; 99283

== ENCOUNTER 2022-05-03 13:26 | Outpatient (REF) | payer OTHER, SELFPAY ==
[2022-05-04 14:41] LABS: Amphetamine Screen Urine Not Detected (Not Detect); Barbiturates, Urine Not Detected (Not Detect); Benzodiazepines Screen Urine Not Detected (Not Detect); Cannabinoid Screen Urine POSITIVE (Not Detect); Cocaine Screen Urine Not Detected (Not Detect); Fentanyl, urine Not Detected (Not Detect); Opiate Screen Urine Not Detected (Not Detect); Phencyclidine Screen Urine Not Detected (Not Detect)
[2022-05-11 09:35] LABS: Codeine, Ur NEGATIVE; Hydrocodone, Ur NEGATIVE; Hydromorphone, Ur NEGATIVE; Morphine, Ur NEGATIVE; Norhydrocodone, Ur NEGATIVE; Oxycodone, Ur NEGATIVE; Oxymorphone, Ur NEGATIVE
[2022-05-11 09:36] LABS: Noroxycodone, Ur NEGATIVE
== END 2022-05-03 13:27 | disposition home or self-care (01) ==
LOC: HO.LNP 13:26
PROVIDERS: Visit Provider Family Medicine
DX: G89.4 Chronic pain syndrome (principal)
CPT/HCPCS: 80307; 80364; 80365

== ENCOUNTER → 2022-05-31 11:03 | Outpatient (BNVA) | payer OTHER, SELFPAY | PROVIDERS: PCP Family Medicine; Visit Provider Anesthesiology | DX: G89.4 Chronic pain syndrome (principal); M96.1 Postlaminectomy syndrome, not elsewhere classified | CPT/HCPCS: 99212 ==

== ENCOUNTER 2022-07-08 09:59 | Outpatient (REF) | payer OTHER, SELFPAY | END 2022-07-08 10:00 | disposition home or self-care (01) | LOC: HO.WFDLNP 09:59 | PROVIDERS: Visit Provider Family Medicine | DX: F11.90 Opioid use, unspecified, uncomplicated (principal) | CPT/HCPCS: 80348; 80362 ==

== ENCOUNTER 2022-07-26 12:43 | Outpatient (REF) | payer OTHER, SELFPAY ==
--- NOTE | ~2022-07-26 | XR_ITS ---
EXAMINATION: 1. STANDING AP RADIOGRAPHS OF BOTH KNEES 2. LATERAL AND PATELLAR SUNRISE RADIOGRAPHS OF THE RIGHT KNEE 3. LATERAL AND PATELLAR SUNRISE RADIOGRAPHS OF THE LEFT KNEE CLINICAL INFORMATION: Bilateral knee pain COMPARISON: Knee radiographs 10/03/2020 TECHNIQUE: Standing AP radiographs of both knees were obtained. Patellar sunrise and lateral views of both knees were also obtained. FINDINGS: Right knee: No fracture or dislocation. No suprapatellar joint effusion. Cannot exclude a few small loose bodies within the suprapatellar joint space. There is narrowing of the medial, lateral and patellofemoral joint spaces. Tricompartmental marginal osteophytes are noted, most predominantly within the medial compartment. Left knee: No fracture or dislocation. No suprapatellar joint effusion. Mild narrowing of the medial, lateral and patellofemoral joint spaces. Tiny tricompartmental marginal osteophytes. XR/XR knee LT 2V IMPRESSION: Mild to moderate degenerative changes of the right knee with mild degenerative changes of the left knee.
--- NOTE | ~2022-07-26 | XR_ITS ---
EXAMINATION: 1. STANDING AP RADIOGRAPHS OF BOTH KNEES 2. LATERAL AND PATELLAR SUNRISE RADIOGRAPHS OF THE RIGHT KNEE 3. LATERAL AND PATELLAR SUNRISE RADIOGRAPHS OF THE LEFT KNEE CLINICAL INFORMATION: Bilateral knee pain COMPARISON: Knee radiographs 10/03/2020 TECHNIQUE: Standing AP radiographs of both knees were obtained. Patellar sunrise and lateral views of both knees were also obtained. FINDINGS: Right knee: No fracture or dislocation. No suprapatellar joint effusion. Cannot exclude a few small loose bodies within the suprapatellar joint space. There is narrowing of the medial, lateral and patellofemoral joint spaces. Tricompartmental marginal osteophytes are noted, most predominantly within the medial compartment. Left knee: No fracture or dislocation. No suprapatellar joint effusion. Mild narrowing of the medial, lateral and patellofemoral joint spaces. Tiny tricompartmental marginal osteophytes. XR/XR knee standing BI IMPRESSION: Mild to moderate degenerative changes of the right knee with mild degenerative changes of the left knee.
--- NOTE | ~2022-07-26 | XR_ITS ---
EXAMINATION: 1. STANDING AP RADIOGRAPHS OF BOTH KNEES 2. LATERAL AND PATELLAR SUNRISE RADIOGRAPHS OF THE RIGHT KNEE 3. LATERAL AND PATELLAR SUNRISE RADIOGRAPHS OF THE LEFT KNEE CLINICAL INFORMATION: Bilateral knee pain COMPARISON: Knee radiographs 10/03/2020 TECHNIQUE: Standing AP radiographs of both knees were obtained. Patellar sunrise and lateral views of both knees were also obtained. FINDINGS: Right knee: No fracture or dislocation. No suprapatellar joint effusion. Cannot exclude a few small loose bodies within the suprapatellar joint space. There is narrowing of the medial, lateral and patellofemoral joint spaces. Tricompartmental marginal osteophytes are noted, most predominantly within the medial compartment. Left knee: No fracture or dislocation. No suprapatellar joint effusion. Mild narrowing of the medial, lateral and patellofemoral joint spaces. Tiny tricompartmental marginal osteophytes. XR/XR knee RT 2V IMPRESSION: Mild to moderate degenerative changes of the right knee with mild degenerative changes of the left knee.
== END 2022-07-26 12:44 | disposition home or self-care (01) ==
LOC: HO.HOSX 12:43
PROVIDERS: Visit Provider Orthopaedic Surgery
DX: M17.11 Unilateral primary osteoarthritis, right knee (principal); M54.16 Radiculopathy, lumbar region
CPT/HCPCS: 20610; 73560; 73565; 99212; J1100

== ENCOUNTER 2022-10-18 11:35 | Outpatient (REF) | payer OTHER, SELFPAY ==
[2022-10-18 14:23] LABS: MANUAL DIFF FLAG NO
[2022-10-18 14:30] LABS: Basophils Absolute Auto 0.1 X10*3/uL (0.0-0.2); Basophils Percent Auto 0.6 % (0-2); Eosinophils Percent Auto 0.4 % (0-4); Hemoglobin 12.2 g/dl (14.0-18.0); Imm Gran Abs Auto 0.02 X10*3/uL (0.00-0.03); Imm Gran Pct Auto 0.3 % (0.0-0.4); Lymphocytes Absolute Auto 1.7 X10*3/uL (1.2-4.9); Lymphocytes Percent Auto 21.2 % (20-40); Mean Corpuscular Hemoglobin 29.1 pg (27.0-33.0); Mean Corpuscular Volume 88.3 fL (80.0-98.0); Mean Platelet Volume 11.2 fL (9.4-12.4); Monocytes Absolute Auto 0.9 X10*3/uL (0.1-1.2); Neutrophils Absolute Auto 5.3 x10*3/uL (2.0-8.3); Neutrophils Percent Auto 66.5 % (45-73); Platelet Count 256 X10*3/uL (160-400); Red Blood Count 4.19 X10*6/uL (4.60-5.80); Red Cell Distribution Width 15.2 % (11.0-16.0)
[2022-10-18 15:42] LABS: Alanine Aminotransferase 12 U/L (0-40); Albumin Level 4.2 g/dL (3.5-5.0); Alkaline Phosphatase 127 U/L (39-117); Anion Gap 15 (12-20); Aspartate Amino Transferase 16 U/L (5-37); Bilirubin Total 0.3 mg/dL (0.0-1.0); Blood Urea Nitrogen 12 mg/dL (9-16); Calcium 9.4 mg/dL (8.4-10.2); Carbon Dioxide 21 mmol/L (22-29); Chloride 108 mmol/L (96-108); Cholesterol 120 mg/dL; Estimated Glomerular Filt Rate > 60; Glucose Fasting 98 mg/dL (60-99); HDL Cholesterol 34 mg/dL; LDL Cholesterol Calculated 67 mg/dl; Sodium 140 mmol/L (135-145); Total Protein 7.2 g/dL (6.5-8.0); Triglycerides 96 mg/dL
[2022-10-18 15:43] LABS: TSH reflex Free T4 0.89 uIU/mL (0.32-4.0)
[2022-10-18 16:49] LABS: Creatinine Urine 28.12 mg/dL; Microalbumin Urine < 5.0 mg/L
[2022-10-25 09:01] LABS: Buprenorphine NEGATIVE; Naloxone NEGATIVE; Norbuprenorphine NEGATIVE
== END 2022-10-18 11:36 | disposition home or self-care (01) ==
LOC: HO.WFDLDS 11:35
PROVIDERS: Visit Provider Family Medicine
DX: Z00.00 Encounter for general adult medical examination without abnormal findings (principal); G89.4 Chronic pain syndrome; I10 Essential (primary) hypertension; F11.20 Opioid dependence, uncomplicated
CPT/HCPCS: 80053; 80061; 80348; 80362; 82043; 84443; 85025

== ENCOUNTER 2022-10-22 10:33 | Outpatient (AMB) | payer OTHER, SELFPAY ==
--- NOTE | 2022-10-22 10:37 | MHC.PC.OV ---
Vital Signs 10/22/22 10:38 Height 5 ft 10.25 in Weight 223 lb BMI 31.8 BP 130/68 Blood Pressure Location Rt brachial Position Sitting Pulse 68 Pulse Source Pulse Oximeter Pulse Oximetry (%) 97 Oxygen Delivery Method Room Air Intake Visit Reasons: CPE with f/u labs and health maintenance Intake Note: Patient is here for physical and follow up labs. Allergies No Known Allergies [No Known Allergies*] Allergy (Verified 10/22/22 10:39) seasonal Allergy (Unknown, Uncoded 10/22/22 10:39) Sneezing Medication List - Last Reconciled 10/22/22 by Jose E Dye MD amlodipine 5 mg PO DAILY atenolol 25 mg PO BID atorvastatin 20 mg PO DAILY buprenorphine 15 mcg/hour 1 patch transdermal QWEEK 28 days celecoxib 200 mg (2 x 100 mg) PO BID 30 days clonazepam 1 mg PO Q8H clonazepam 2 mg PO BEDTIME cyclobenzaprine 5 mg PO TID PRN cyclobenzaprine 10 mg PO TID PRN duloxetine (Cymbalta) 60 mg PO BID 30 days hydroxyzine pamoate 50 mg PO TID naloxone 4 mg/actuation 4 mg intranasal Q2M PRN 28 days nicotine (polacrilex) (Nicorette) 4 mg buccal Q2H 28 days omeprazole 40 mg PO DAILY pramipexole 0.125 mg PO BEDTIME 30 days pregabalin 50 mg PO BEDTIME 30 days Tobacco use date assessed: 10/22/22 Dental Screening Dental Screen Date: 10/22/22 Did you have a dental visit in the last 12 months?: Yes Did you have a dental problem in the last 6 months where you did not have access to dental care?: No Was dental information given to patient?: No HPI CPE with f/u labs and health maintenance HPI Details 52 y/o male presents for a CPE with f/u labs and health maintenance. Labs were drawn 10/18/22. Reviewed labs with pt. Mild anemia. Triglycerides 96. TC 120. LDL 67. HDL low at 34. He reports he has not been exercising as much as he likes to. Blood pressure today is 130/68. He is on amlodipine 5mg daily and atenolol 25mg b.i.d. [facility] Medical History Arthritis BP (high blood pressure) Surgical History H/O knee surgery History of hip replacement History of spinal fusion Family History Father No problems noted. Mother No problems noted. Social History Household Members: Family Housing: House Alcohol intake: never Patient Tobacco Use Status: Former Tobacco user Tobacco use type: Cigarette Cigarette Packs Per Day: 1 e-Cigarette/Vaping Use: Never Used Second Hand Smoke Exposure: No Substance Use Type: Marijuana service: No Current occupational status: disabled Current occupation: rt hand Current occupational exposures/hazards: No Cognitive needs: No Hearing needs: No Vision needs: No Questionnaire PHQ-9 Over the last 2 weeks, how often have you been bothered by any of the following problems? 1. Little interest or pleasure in doing things: more than half the days 2. Feeling down, depressed, or hopeless: nearly every day 3. Trouble falling or staying asleep, or sleeping too much: nearly every day 4. Feeling tired or having little energy: more than half the days 5. Poor appetite or overeating: not at all 6. Feeling bad about yourself - or that you are a failure or have let yourself or your family down: more than half the days 7. Trouble concentrating on things, such as reading the newspaper or watching television: nearly every day 8. Moving or speaking so slowly that other people could have noticed. Or the opposite - being so fidgety or restless that you have been moving around a lot more than usual: not at all 9. Thoughts that you would be better off or of hurting yourself in some way: not at all Total score: 15 Source: Developed by Drs. Mika Nguyen, Valorie Chen, [employer]rez [employer] and colleagues, with an educational jonas from [employer]. Thrive Questionnaire Date Thrive assessed: 02/18/22 I am a: Patient What is your living situation today?: I have a steady place to live Within the past 12 months, did the food you bought not last and you didn't have the money to get more?: Often true Within the past 12 months, did you worry whether your food would run out before you got money to buy more?: Often true Do you have trouble paying for medicines?: Yes Do you have trouble getting transportation to medical appointments?: No Do you have trouble paying your heating and electricity bill?: Yes Do you have trouble taking care of your child, family member or friend?: No Do you have trouble with day-to-day activities such as bathing, preparing meals, shopping, managing finances, etc.?: No Are you currently unemployed and looking for a job?: No Are you interested in more education?: No AUDIT C Alcohol Use Questionnaire (AUDIT-C) 1. How often do you have a drink containing alcohol?: Never 3. How often do you have six or more drinks on one occasion?: Never Total Score: 0 GISSEL-7 AMB Questionnaire GISSEL-7 Date GISSEL - 7 assessed: 03/19/22 Feeling nervous, anxious, or on edge: 3 = Nearly every day Not being able to stop or control worryin = Nearly every day Worrying too much about different things: 3 = Nearly every day Trouble relaxin = Nearly every day Being so restless that it is hard to sit still: 3 = Nearly every day Becoming easily annoyed or irritable: 2 = More than half the days Feeling afraid as if something awful might happen: 0 = Not at all Total GISSEL-7 score (0-4 normal; 5-9 mild; 10-14 moderate; 15-21 severe): 17 Source: Developed by Drs. Mika Nguyen, Valorie Chen, [facility] [employer] and colleagues, with an educational jonas from [employer]. Review of Systems Const Denies chills, Denies fatigue, Denies fever(s), Denies headache(s) and Denies weakness Eyes Denies change in vision ENT Denies dizziness, Denies headache(s), Denies hearing loss, Denies nasal congestion, Denies sinus pain, Denies sinus pressure and Denies sore throat Card Denies chest pain, Denies lightheadedness, Denies dyspnea and Denies other (palpitations) Resp Denies cough, Denies dyspnea and Denies wheezing GI Denies abdominal pain, Denies melena, Denies hematochezia, Denies change in bowel habits, Denies dyspepsia and Denies nausea Denies hematuria and Denies dysuria Musc Denies abnormal gait, Denies myalgias, Denies arthralgias, Denies numbness and Denies tingling Skin/Breast Denies rash, Denies unusual bruising and Denies wounds Neuro Denies abnormal gait, Denies dizziness, Denies headache(s), Denies memory loss, Denies numbness, Denies Sensory deficit (Neuro), Denies tingling and Denies weakness Psych Denies anxiety, Denies depression and Denies memory loss Endo Denies cold intolerance, Denies fatigue, Denies heat intolerance, Denies polydipsia and Denies polyuria Jae/Lymph Denies easy bleeding and Denies easy bruising Aller/Immun Denies wheezing Physical exam (Primary Care) Vital Signs: Last Vital Signs Pulse 68 10/22/22 10:38 BP 130/68 10/22/22 10:38 Pulse Ox 97 10/22/22 10:38 Oxygen Delivery Method Room Air 10/22/22 10:38 BMI result Body Mass Index 31.8 Tobacco/Smoking Status: Tobacco use Status Tobacco use date assessed 10/22/22 10/22/22 10:41 Patient Tobacco Use Status Former Tobacco user 10/22/22 10:41 Tobacco use type Cigarette 10/22/22 10:41 e-Cigarette/Vaping Use Never Used 10/22/22 10:41 PHQ-9: PHQ-9 Score PHQ-9: Total score 15 10/22/22 11:15 Thrive Assessment: Date of Thrive Assessment Date Thrive assessed 02/18/22 10/22/22 10:41 Const General: no acute distress, well developed, alert and awake Nutritional Appearance: well nourished Orientation/consciousness: patient oriented x3 HENMT Other: 1 cm abscess at the lower lip just outside at the vermilion border with surrounding erythema and serous drainage Head: Yes normocephalic and Yes atraumatic Ears: hearing grossly normal bilaterally and TM's normal bilaterally General nose exam: Normal external nose present and Normal nares present Mouth: Normal oral and palatal mucosa present and moist mucous membranes Teeth and gingiva: dentition normal Throat: Yes posterior oropharynx normal Eyes General: appearance normal, both eyes and all related structures Pupils: Equal, round and reactive pupils present and Pupil accommodation reflex normal EOM: EOMs intact bilaterally Neck Neck: Yes normal visual inspection, Yes no lymphadenopathy and Yes trachea midline Thyroid: Thyroid normal Carotids: no bruits Lymphatic: no lymphadenopathy noted Chest Chest palpation & inspection: normal inspection of the chest Resp Effort & Inspection: normal respiratory effort Auscultation: clear to auscultation bilaterally Cardio Rate: regular rate Rhythm: regular rhythm Heart sounds: S1 normal heart sound present, S2 normal heart sound present, no gallops, no murmurs and no rubs Bruits: no abdominal aortic bruits and no carotid bruits GI Palpation (GI): No Abdominal aortic bruit present, Soft to palpation, nontender, No hepatosplenomegaly present and No Rebound tenderness present Auscultation: normal bowel sounds General: Yes no CVA tenderness Back/Spine/Pelvis Back: no CVA tenderness Cervical Spine: cervical ROM normal and No Cervical spine tenderness Thoracic/Lumbar Spine: thoraco-lumbar ROM normal, No pain with thoraco-lumbar ROM, No thoracic spinal tenderness and No lumbar spinal tenderness Skin Lesions: no lesions Rashes: no rashes Trauma: no lacerations or abrasions Wounds: no wounds Nails: normal Neuro General: patient oriented x3 Cranial nerves: Yes Equal, round and reactive pupils present Cognition (Neuro): normal cognition Gait exam (Neuro): Normal gait present Motor exam (neuro): 5/5 motor strength present throughout Sensory Exam: No Sensory deficit (Neuro) Deep tendon reflexes (DTR's): Right patellar reflex intensity grade: 2+ and Left patellar reflex intensity grade: 2+ Extrem General: Yes normal to inspection and No edema Psych Appearance: grossly normal Affect: normal affect Attitude: cooperative Thought process: Normal thought process present Assessment and Plan Assessment & Plan (1) Adult general medical exam: Code(s): Z00.00 - Encounter for general adult medical examination without abnormal findings Plan: 52-year-old male presents for complete physical exam Encouraged healthy diet with active lifestyle and plenty of exercise (2) Low HDL (under 40): Code(s): E78.6 - Lipoprotein deficiency Plan: Encouraged exercise as tolerated Encouraged diet higher in [place] 3 fatty acids (3) Mild anemia: Code(s): D64.9 - Anemia, unspecified Plan: Followed by Hematology-Oncology Anemia is somewhat stable and he has follow-up. (4) Hypertension: Code(s): I10 - Essential (primary) hypertension Plan: Blood pressure is controlled. Goal is less than 140/90 Continue current medication regimen (5) GERD (gastroesophageal reflux disease): Code(s): K21.9 - Gastro-esophageal reflux disease without esophagitis Plan: Fairly stable. Continue omeprazole Avoid trigger foods (6) Screening for colon cancer: Code(s): Z12.11 - Encounter for screening for malignant neoplasm of colon Plan: History of colon polyps and patient was supposed to follow-up for a 3 year repeat colonoscopy but was unable to tolerate the procedure at that time Referred to GI to discuss his options (7) Screening for prostate cancer: Code(s): Z12.5 - Encounter for screening for malignant neoplasm of prostate Plan: PSA in January was within normal limits (8) Radiculopathy, lumbar region: Code(s): M54.16 - Radiculopathy, lumbar region Plan: Chronic back pain. Patient has seen numerous specialists. I am currently treating him with buprenorphine, muscle relaxants, pregabalin and Cymbalta. Following closely as he has had noted problems with compliance with medications in the past with prior providers. However patient has clear indications of pain on MRI. Has seen numerous specialists. Ortho, Dr. Ritter wants to refer him to a neurosurgeon in [place]; will follow-up Continue medication as prescribed Follow-up with specialists as recommended (9) Abscess: Code(s): L02.91 - Cutaneous abscess, unspecified Plan: Abscess at lower lip just below vermilion border Unclear if this began as a comedone or cold sore. Appears infected now however so I am giving him a script for cephalexin. Will also give him a script for valacyclovir as this may have begun as a cold sore. Orders: Orders XR chest 2V Today F17.200 - Nicotine dependence, unspecified, uncomplicated Referrals Gastroenterology Referral K63.5 - Polyp of colon Medications: New cephalexin 500 mg PO Q12H 10 days 20 caps 0RF valacyclovir 500 mg PO Q12H 7 days 14 tabs 0RF Coding Level of Care Code Est Pt Level 3 (15907) Est Pt Prev Care 40-64y(44466) Diagnoses Adult general medical exam Z00.00 Low HDL (under 40) E78.6 Mild anemia D64.9 Hypertension I10 GERD (gastroesophageal reflux disease) K21.9 Screening for colon cancer Z12.11 Screening for prostate cancer Z12.5 Radiculopathy, lumbar region M54.16 Abscess L02.91
[2022-10-22 10:38] VITALS: BP 130/68; PULSE 68; O2SAT 97; BMI 31.8
== END 2022-10-22 11:14 | disposition home or self-care (01) ==
PROVIDERS: PCP Family Medicine; Visit Provider Family Medicine
DX: Z00.00 Encounter for general adult medical examination without abnormal findings (principal); I10 Essential (primary) hypertension; K21.9 Gastro-esophageal reflux disease without esophagitis; E78.6 Lipoprotein deficiency; D64.9 Anemia, unspecified; Z12.11 Encounter for screening for malignant neoplasm of colon; Z12.5 Encounter for screening for malignant neoplasm of prostate; M54.16 Radiculopathy, lumbar region; L02.91 Cutaneous abscess, unspecified
CPT/HCPCS: 99396

== ENCOUNTER 2022-10-29 10:27 | Outpatient (REF) | payer OTHER, SELFPAY ==
--- NOTE | ~2022-10-29 | XR_ITS ---
EXAMINATION: XR CHEST CLINICAL INFORMATION: Nicotine dependence COMPARISON: 02/10/2022 TECHNIQUE: 2 views of the chest were obtained. FINDINGS: No significant abnormality is noted involving the heart, lungs, mediastinum, bony thorax or soft tissues. XR/XR chest 2V IMPRESSION: Unremarkable examination.
== END 2022-10-29 10:28 | disposition home or self-care (01) ==
LOC: HO.XRAY 10:27
PROVIDERS: PCP Family Medicine; Visit Provider Family Medicine
DX: F17.200 Nicotine dependence, unspecified, uncomplicated (principal)
CPT/HCPCS: 71046

== ENCOUNTER 2022-12-30 12:31 | Outpatient (AMB) | payer OTHER, SELFPAY ==
--- NOTE | 2022-12-30 12:32 | A.OFFVIS_ITS ---
Intake Vital Signs 12/30/22 12:37 Height 5 ft 10 in Weight 209 lb 7.026 oz BMI 30.0 BP 155/57 H Blood Pressure Location Lt brachial Position Sitting Pulse 72 Intake Visit Reasons: Colonoscopy Screening Intake Note: Alejandro presents in the office as a colonoscopy screening. CC: He had a colonoscopy 4 years ago and had 7 polyps. Last time he did the prep he had gotten so sick - throwing up and diarrhea. He did not end up getting his second one done so that is probably why he is here today. Allergies seasonal Allergy (Unknown, Uncoded 12/30/22 12:38) Sneezing Medication List - Last Reconciled 12/30/22 by Hattie Menendez PA-C amlodipine 5 mg PO DAILY atenolol 25 mg PO BID atorvastatin 20 mg PO DAILY buprenorphine 15 mcg/hour 1 patch transdermal QWEEK 28 days celecoxib 200 mg (2 x 100 mg) PO BID 30 days clonazepam 1 mg PO Q8H clonazepam 2 mg PO BEDTIME duloxetine (Cymbalta) 60 mg PO BID 30 days hydroxyzine pamoate 50 mg PO TID meloxicam 15 mg PO DAILY 7 days naloxone 4 mg/actuation 4 mg intranasal Q2M PRN 28 days omeprazole 40 mg PO DAILY pramipexole 0.125 mg PO BEDTIME 30 days pregabalin 50 mg PO BEDTIME 30 days HPI HPI Comments History of Present Illness Details A 52 y/o male- referred for colonoscopy- hx of 7 polyps about 4-5 years ago Life long gerd- never had EGD-ppi for years many ortho surgeries Appetite is good Normal BM- No cardiac or respiratory issues No nausea, vomiting, hematemesis, hematochezia fever chills PFSH Medical History (Updated 12/30/22 @ 14:16 by Hattie Menendez PA-C) History of colon polyps Arthritis BP (high blood pressure) Surgical History Hx of colonoscopy History of hip replacement H/O knee surgery History of spinal fusion Family History Father No problems noted. Mother No problems noted. Social History Household Members: Family Housing: House Alcohol intake: never Patient Tobacco Use Status: Former Tobacco user Tobacco use type: Cigarette Cigarette Packs Per Day: 1 e-Cigarette/Vaping Use: Never Used Second Hand Smoke Exposure: No Substance Use Type: Marijuana service: No Current occupational status: disabled Current occupation: rt hand Current occupational exposures/hazards: No Cognitive needs: No Hearing needs: No Vision needs: No Review of Systems Const All systems reviewed & are unremarkable except as noted in HPI and below Card Denies chest pain and Denies dyspnea Resp Denies dyspnea GI Denies abdominal pain, Denies change in bowel habits and Reports heartburn Musc Reports abnormal gait, Reports back pain and Reports arthralgias Neuro Reports abnormal gait Physical Exam Vital Signs: Last Vital Signs Pulse 72 12/30/22 12:37 BP 155/57 H 12/30/22 12:37 BMI result Body Mass Index 30.0 Const General: cooperative, healthy appearing, comfortable and no acute distress Orientation/consciousness: patient oriented x3 Limitations: no limitations and ambulation with cane Eyes Sclerae: sclerae normal Resp Effort & Inspection: normal respiratory effort and able to speak in complete sentences Auscultation: clear to auscultation bilaterally, no crackles, no rales and no rhonchi Cardio Rate: regular rate Rhythm: regular rhythm Heart sounds: S1 normal heart sound present and S2 normal heart sound present GI Palpation (GI): Soft to palpation and nontender Auscultation: normal bowel sounds Skin General skin exam: no rashes or lesions noted Neuro General: patient oriented x3 Extrem Other: R- knee wrap- Assessment & Plan Assessment & Plan (1) History of colon polyps: Code(s): Z86.010 - Personal history of colonic polyps Plan: colonoscopy (2) GERD (gastroesophageal reflux disease): Comment: Recommend EGD for Arana's surveillance, r/o pud, nonulcer dyspepsia, esophagitis other endoscopic findings to account for his symptoms Code(s): K21.9 - Gastro-esophageal reflux disease without esophagitis Plan: continue ppi EGD Barretts surveillance Reflux precautions Plan EGD and colonoscopy MiraLax Gatorade split prep Orders: Orders EGD/Visalia Combo - GI Use Only Today K21.9 - Gastro-esophageal reflux disease without esophagitis, Z86.010 - Personal history of colonic polyps Medications: New polyethylene glycol 3350 (Miralax) Take as directed by mouth the day before your procedure. 238 grams PO ONCE 1 day PRN 238 grams 0RF laxative effect bisacodyl (Dulcolax (bisacodyl)) Day before procedure, prep day Take 4 tablets by mouth upon awakening followed by large glass of water 20 mg (4 x 5 mg) PO ONCE 1 day 4 tabs 0RF colonoscopy prep Z12.11 - Encounter for screening for malignant neoplasm of colon Patient Instructions: continue ppi EGD Barretts surveillance Polyp surveillance colonoscopy Reflux precautions Continue usual medications Encouraged to call questions or concerns Coding Level of Care Code New Pt Level 3 (25948) Diagnoses History of colon polyps Z86.010 GERD (gastroesophageal reflux disease) K21.9 Time Spent (min) 30
[2022-12-30 12:37] VITALS: BP 155/57; PULSE 72
== END 2022-12-30 14:10 | disposition home or self-care (01) ==
PROVIDERS: PCP Family Medicine; Visit Provider Physician Assistant
DX: Z01.818 Encounter for other preprocedural examination (principal); Z12.11 Encounter for screening for malignant neoplasm of colon; Z86.010 Personal history of colon polyps; K21.9 Gastro-esophageal reflux disease without esophagitis
CPT/HCPCS: 99203

== ENCOUNTER → 2022-12-30 12:31 | Outpatient (BNVA) | payer OTHER, SELFPAY | PROVIDERS: PCP Family Medicine; Visit Provider Physician Assistant ==

== ENCOUNTER 2023-01-14 10:30 | Outpatient (AMB) | payer OTHER, SELFPAY ==
--- NOTE | 2023-01-14 11:04 | MHC.OFFVIS ---
Intake Vital Signs 01/14/23 11:07 Height 5 ft 10 in Weight 209 lb BMI 30.0 Intake Visit Reasons: OV-B/L knee injection-last injection 07/26/22 Intake Note: Alejandro is a 52 year old male who presents today for a follow up of his bilateral knee pain. Last injection was done 07/26/22 in the right knee. He reports that this injection was only helpful for a short period of time. He explains that on 12/01/22 he was getting in the car when his heel slipped from under him and he hyperextended the right knee. Since then he has had significant pain and difficulty with ROM. He is wearing a brace which does offer some support. Allergies seasonal Allergy (Unknown, Uncoded 12/30/22 12:38) Sneezing HPI OV-B/L knee injection-last injection 07/26/22 HPI Details Alejandro is a 52 year old man who presents with complaints of right knee pain. They were last seen on 07/26/22 for their right knee, and received a steroid injection which gave them only a few weeks of relief. They complains of worsening pain with daily activity, along with limited ROM, after hyperextending their knee on 12/01/22. Their pain is worse with motion, and they find some support from wearing a knee brace. They describe their pain as sharp and says they finds no relief from Tylenol. They have postlaminectomy syndrome and lumbar radiculopathy affecting his left side. They have pain and radiating numbness from their lower back down their left leg. They say they has been seen by Pain Management and a note specialist, both of which say they have no treatment for them, which they find frustrating. They are currently taking naloxone, Buprenorphine patches, and celebrex for pain relief. [facility] Medical History History of colon polyps Arthritis BP (high blood pressure) Surgical History Hx of colonoscopy History of hip replacement H/O knee surgery History of spinal fusion Family History Father No problems noted. Mother No problems noted. Social History (Reviewed 01/14/23 @ 11:07 by Yenny Parikh [facility] Household Members: Family Housing: House Alcohol intake: never Patient Tobacco Use Status: Former Tobacco user Tobacco use type: Cigarette Cigarette Packs Per Day: 1 e-Cigarette/Vaping Use: Never Used Second Hand Smoke Exposure: No Substance Use Type: Marijuana service: No Current occupational status: disabled Current occupation: rt hand Current occupational exposures/hazards: No Cognitive needs: No Hearing needs: No Vision needs: No Physical Exam Vital Signs: BMI result Body Mass Index 30.0 Extrem Other: medial and lateral joint line ttp mild effusion Office Procedures Joint Injection/Drain Joint Injection/Drain Details: Injected 1 mL of Decadron and 3 mL 1% lidocaine and 3 mL of 0.25% Marcaine. Site was prepped using aseptic technique. Patient tolerated the procedure well. Primary Site: right knee Approach Used: anterolateral Coding 52355 - Large joint Procedure code (CPT) selection complete Results Reviewed Results Reviewed: 01/14/23 11:29 BUPivacaine MPF 0.25 % [Sensorcaine-MPF 0.25% 10 ML] 10 ml .ROUTE .STK-MED ONE Lidocaine HCl 2 % MPF [Xylocaine 2 % MPF] 5 ml .ROUTE .STK-MED ONE dexAMETHasone sod phosphate [Decadron] 4 mg .ROUTE .STK-MED ONE Assessment & Plan Assessment & Plan (1) Osteoarthritis of right knee: Code(s): M17.11 - Unilateral primary osteoarthritis, right knee Plan: This is a 52 year old man with right knee OA, and worsening pain. I had a long discussion regarding further imaging and treatment options. I recommend injection and PT. f/u 3 months (2) Radiculopathy, lumbar region: Code(s): M54.16 - Radiculopathy, lumbar region Orders: Orders PT Evaluation and Treatment Today M17.11 - Unilateral primary osteoarthritis, right knee Coding Level of Care Code Est Pt Level 4 (29777) Diagnoses Osteoarthritis of right knee M17.11 Radiculopathy, lumbar region M54.16 CPT Codes Coding - Large joint: 24150 - Large joint ([id number])
== END 2023-01-14 11:43 | disposition home or self-care (01) ==
PROVIDERS: PCP Family Medicine; Visit Provider Orthopaedic Surgery
DX: M17.11 Unilateral primary osteoarthritis, right knee (principal); M54.16 Radiculopathy, lumbar region
CPT/HCPCS: 20610; 99213

== ENCOUNTER → 2023-01-14 10:30 | Outpatient (BNVA) | payer OTHER, SELFPAY | PROVIDERS: PCP Family Medicine; Visit Provider Orthopaedic Surgery | DX: M17.11 Unilateral primary osteoarthritis, right knee (principal); M54.16 Radiculopathy, lumbar region | CPT/HCPCS: 20610; 99212; J1100 ==

== ENCOUNTER 2023-01-25 11:26 | Outpatient (AMB) | payer OTHER, SELFPAY ==
--- NOTE | 2023-01-25 11:32 | MHC.PC.OV ---
Vital Signs 01/25/23 11:34 Height 5 ft 10 in Weight 206 lb 6 oz BMI 29.6 BP 140/76 H Blood Pressure Location Rt brachial Position Sitting Pulse 69 Pulse Source Pulse Oximeter Pulse Oximetry (%) 99 Oxygen Delivery Method Room Air Intake Visit Reasons: follow up chronic pain Intake Note: Patient is here for continued chronic pain, gone down to right knee, feeling worse. Patient states he was in tears and in pain 2 days ago. Allergies seasonal Allergy (Unknown, Uncoded 01/25/23 11:36) Sneezing Tobacco use date assessed: 10/22/22 HPI follow up chronic pain HPI Details Pt presents to f/u chronic pain. Patient is treated with buprenorphine, muscle relaxants, NSAIDs and duloxetine. Also pregabalin. Has had problems with compliance with medication with other providers so watching carefully but MRI does show indications for pain control. Had seen orthopedics Dr. Ritter 01/14/23. Had recommended injection and PT and will f/u with him. He reports he has not started physical therapy yet. Pt reports depression/anxiety and does note he does go to therapy via video chat. Pt reports he has been smoking about 1/2 ppd. HPI Comments History of Present Illness Details Documentation assistance for Jose E Dye MD, was provided by Lobo Hunt,?[employer] on 01/25/2023 12:48 PM GOSIA. Matteo, Dr. Dye, have read, observed, and verified documentation.? [facility] Medical History History of colon polyps Arthritis BP (high blood pressure) Surgical History Hx of colonoscopy History of hip replacement H/O knee surgery History of spinal fusion Family History Father No problems noted. Mother No problems noted. Social History Household Members: Family Housing: House Alcohol intake: never Patient Tobacco Use Status: Former Tobacco user Tobacco use type: Cigarette Cigarette Packs Per Day: 1 e-Cigarette/Vaping Use: Never Used Second Hand Smoke Exposure: No Substance Use Type: Marijuana service: No Current occupational status: disabled Current occupation: rt hand Current occupational exposures/hazards: No Cognitive needs: No Hearing needs: No Vision needs: No Questionnaire Thrive Questionnaire Date Thrive assessed: 02/18/22 GISSEL-7 AMB Questionnaire GISSEL-7 Date GISSEL - 7 assessed: 03/19/22 Source: Developed by Drs. Mika Nguyen, Valorie Chen, Ram[facility]rez [facility] and colleagues, with an educational jonas from [employer]. Review of Systems Const Denies chills, Denies fatigue, Denies fever(s), Denies headache(s) and Denies weakness ENT Denies dizziness and Denies headache(s) Card Denies dyspnea Resp Denies cough, Denies dyspnea, Denies wheezing and Denies other (shortness of breath) Musc Denies numbness and Denies tingling Neuro Denies dizziness, Denies headache(s), Denies numbness, Denies tingling and Denies weakness Psych Reports anxiety and Reports depression Endo Denies fatigue Aller/Immun Denies wheezing Physical exam (Primary Care) Vital Signs: Last Vital Signs Pulse 69 01/25/23 11:34 BP 140/76 H 01/25/23 11:34 Pulse Ox 99 01/25/23 11:34 Oxygen Delivery Method Room Air 01/25/23 11:34 BMI result Body Mass Index 29.6 Tobacco/Smoking Status: Tobacco use Status Tobacco use date assessed 10/22/22 01/25/23 11:41 Patient Tobacco Use Status Former Tobacco user 01/25/23 11:41 Tobacco use type Cigarette 01/25/23 11:41 e-Cigarette/Vaping Use Never Used 01/25/23 11:41 Thrive Assessment: Date of Thrive Assessment Date Thrive assessed 02/18/22 01/25/23 11:41 Const General: well developed; No acute distress Nutritional Appearance: well nourished Orientation/consciousness: patient oriented x3 HENMT Head: Yes normocephalic and Yes atraumatic Eyes General: appearance normal, both eyes and all related structures Pupils: Equal, round and reactive pupils present EOM: EOMs intact bilaterally Resp Effort & Inspection: normal respiratory effort Auscultation: clear to auscultation bilaterally Cardio Rate: regular rate Rhythm: regular rhythm Heart sounds: S1 normal heart sound present, S2 normal heart sound present, no gallops, no murmurs and no rubs Neuro General: patient oriented x3 and gait normal Cranial nerves: Yes Equal, round and reactive pupils present Psych Affect: normal affect Assessment and Plan Assessment & Plan (1) Chronic pain syndrome: Code(s): G89.4 - Chronic pain syndrome Plan: Patient is treated with buprenorphine, muscle relaxants, NSAIDs, duloxetine and pregabalin. Has had problems with compliance with medication with other providers so watching carefully but MRI does show indications for pain control. Following closely. Increased?duloxetine?which?should?also?help?with?depression. Discussed?with?patient?that?I?will?not?be?increasing?his?buprenorphine?and?I?recommended?follow-up?with?pain?management?for?additional?modalities?of?pain?control. Patient?agrees?to?referral?to?pain?management?at?[facility]. Also?will?get?him?established?with?physical?therapy?ordered?by?[facility] (2) Osteoarthritis of right knee: Code(s): M17.11 - Unilateral primary osteoarthritis, right knee Plan: Has?been?followed?by?Ortho. Starting?physical?therapy (3) Depression with anxiety: Code(s): F41.8 - Other specified anxiety disorders Plan: As?above,?increasing?duloxetine Patient?has?a?psychiatrist?and?I?recommend?he?follow-up?as?well?as?with?a?therapist. (4) Smoker: Code(s): F17.200 - Nicotine dependence, unspecified, uncomplicated Plan: Refilled?Nicorette?gum Orders: Referrals Pain Management Referral M17.11 - Unilateral primary osteoarthritis, right knee, M17.12 - Unilateral primary osteoarthritis, left knee, M54.16 - Radiculopathy, lumbar region Medications: Changed From duloxetine (Cymbalta) 60 mg PO BID 30 days 60 caps 2RF To duloxetine (Cymbalta) 120 mg (2 x 60 mg) PO BID 30 days 120 caps 2RF Refilled nicotine (polacrilex) (Nicorette) 4 mg buccal Q2H 28 days 330 ea 2RF Coding Level of Care Code Est Pt Level 4 (79261) Diagnoses Chronic pain syndrome G89.4 Osteoarthritis of right knee M17.11 Depression with anxiety F41.8 Smoker F17.200
[2023-01-25 11:34] VITALS: BP 140/76; PULSE 69; O2SAT 99; BMI 29.6
== END 2023-01-25 12:52 | disposition home or self-care (01) ==
PROVIDERS: PCP Family Medicine; Visit Provider Family Medicine
DX: G89.4 Chronic pain syndrome (principal); M17.11 Unilateral primary osteoarthritis, right knee; F41.8 Other specified anxiety disorders; F17.200 Nicotine dependence, unspecified, uncomplicated
CPT/HCPCS: 99214

== ENCOUNTER 2023-03-10 13:55 | Outpatient (AMB) | payer OTHER, SELFPAY ==
--- NOTE | 2023-03-10 14:21 | A.OFFVIS_ITS ---
Intake Vital Signs 03/10/23 14:22 Height 5 ft 10 in Weight 206 lb BMI 29.6 Intake Visit Reasons: OV - Right Knee OA - Discuss TKA? Intake Note: Alejandro is a 53 year old male who presents today for a follow up of his right knee OA. Last Injected on 01/14/23. This injectionwas shashank mildly helpful for about one week. Patient is looking to discuss TKA. Allergies seasonal Allergy (Unknown, Uncoded 01/25/23 11:36) Sneezing HPI OV - Right Knee OA - Discuss TKA? HPI Details Alejandro is a 53 year old man who presents with complaints of right knee pain. They were last seen on 01/14/23 for their right knee, and received a steroid injection which gave them only ~1 week of relief. They continue to have pain with activity, and would like to discuss surgery. They found limited relief from PT PFSH Medical History History of colon polyps Arthritis BP (high blood pressure) Surgical History Hx of colonoscopy History of hip replacement H/O knee surgery History of spinal fusion Family History Father No problems noted. Mother No problems noted. Social History Household Members: Family Housing: House Alcohol intake: never Patient Tobacco Use Status: Former Tobacco user Tobacco use type: Cigarette Cigarette Packs Per Day: 1 e-Cigarette/Vaping Use: Never Used Second Hand Smoke Exposure: No Substance Use Type: Marijuana service: No Current occupational status: disabled Current occupation: rt hand Current occupational exposures/hazards: No Cognitive needs: No Hearing needs: No Vision needs: No Review of Systems Const All systems reviewed & are unremarkable except as noted in HPI and below Physical Exam Vital Signs: BMI result Body Mass Index 29.6 Const General: no acute distress, alert and awake Orientation/consciousness: patient oriented x3 HEENT Head: Yes normocephalic and Yes atraumatic Eyes EOM: EOMs intact bilaterally Resp Effort & Inspection: normal respiratory effort and able to speak in complete sentences Cardio Jugular venous distension: no JVD Skin General skin exam: turgor normal Rashes: no rashes Neuro General: patient oriented x3 Extrem Other: right knee with 5-130 deg of motion medial and anterior compartment TTP milkd gait antalgia Psych Appearance: grossly normal Affect: normal affect Attitude: cooperative Results Reviewed Results Reviewed: I personally reviewed relevant radiographs. bilateral knee osteoarthritis right > left Assessment & Plan Assessment & Plan (1) Osteoarthritis of right knee: Code(s): M17.11 - Unilateral primary osteoarthritis, right knee Plan: Right knee OA Steroid injections not helpful Will proceed forward with [facility] Plan Scribed for Petr Ritter MD by Mil Hairston medical representative, on 03/10/23 at 2:30 PM, EST. Coding Level of Care Code Est Pt Level 3 (42770) Diagnoses Osteoarthritis of right knee M17.11
[2023-03-10 14:22] VITALS: BMI 29.6
== END 2023-03-10 15:08 | disposition home or self-care (01) ==
PROVIDERS: PCP Family Medicine; Visit Provider Orthopaedic Surgery
DX: M17.11 Unilateral primary osteoarthritis, right knee (principal)
CPT/HCPCS: 99213

== ENCOUNTER → 2023-03-10 13:55 | Outpatient (BNVA) | payer OTHER, SELFPAY | PROVIDERS: PCP Family Medicine; Visit Provider Orthopaedic Surgery | DX: M17.11 Unilateral primary osteoarthritis, right knee (principal) | CPT/HCPCS: 99212 ==

== ENCOUNTER 2023-03-22 10:38 | Outpatient (AMB) | payer OTHER, SELFPAY ==
--- NOTE | 2023-03-22 10:43 | MHC.OFFVIS ---
Intake Vital Signs 03/22/23 10:44 Height 5 ft 10 in Weight 198 lb 3 oz BMI 28.4 Intake Visit Reasons: Right Knee Durolane Injection Intake Note: Alejandro is a 53 yr old male who present today for a Right knee Durolane Injection. Patient describes his right knee pain as sharp in nature. He has had cortisone injections in the past which gave him minimal relief. He wishes to hold off on surgery for as long as possible. He has tried Tylenol and anti-inflammatory medicines which gave him minimal relief. He has done physical therapy exercises which aggravated his pain. Allergies seasonal Allergy (Unknown, Uncoded 01/25/23 11:36) Sneezing Medication List - Last Reconciled 03/22/23 by Mohit Khalil MD amlodipine 5 mg PO DAILY atenolol 25 mg PO BID atorvastatin 20 mg PO DAILY bisacodyl (Dulcolax (bisacodyl)) 20 mg (4 x 5 mg) PO ONCE 1 day buprenorphine 15 mcg/hour 1 patch transdermal QWEEK 28 days celecoxib 200 mg (2 x 100 mg) PO BID 30 days clonazepam 1 mg PO Q8H clonazepam 2 mg PO BEDTIME duloxetine (Cymbalta) 120 mg (2 x 60 mg) PO BID 30 days hydroxyzine pamoate 50 mg PO TID meloxicam 15 mg PO DAILY 7 days naloxone 4 mg/actuation 4 mg intranasal Q2M PRN 28 days nicotine (polacrilex) (Nicorette) 4 mg buccal Q2H 28 days omeprazole 40 mg PO DAILY polyethylene glycol 3350 (Miralax) 238 grams PO ONCE PRN 1 day pramipexole 0.125 mg PO BEDTIME 90 days pregabalin 50 mg PO BEDTIME 30 days PFSH Medical History History of colon polyps Arthritis BP (high blood pressure) Surgical History Hx of colonoscopy History of hip replacement H/O knee surgery History of spinal fusion Family History Father No problems noted. Mother No problems noted. Social History Household Members: Family Housing: House Alcohol intake: never Patient Tobacco Use Status: Former Tobacco user Tobacco use type: Cigarette Cigarette Packs Per Day: 1 e-Cigarette/Vaping Use: Never Used Second Hand Smoke Exposure: No Substance Use Type: Marijuana service: No Current occupational status: disabled Current occupation: rt hand Current occupational exposures/hazards: No Cognitive needs: No Hearing needs: No Vision needs: No Physical Exam Vital Signs: BMI result Body Mass Index 28.4 Const Other: Well-nourished well-developed very friendly male awake alert and oriented x3 in no acute distress Extrem Other: Bilateral lower extremity examination shows good capillary refill, no skin lesions noted, normal sensation light touch Right knee examination shows a minimal effusion, palpable crepitus with range of motion, pain with range of motion, range of motion from -3 degrees to 115 degrees, no instability Office Procedures Joint Injection/Drain Joint Injection/Drain Primary Site: right knee Prep: site was prepped using aseptic technique Injected: 40 mg of, DepoMedrol and 1% plain lidocaine Procedure: The patient tolerated the procedure well Coding 53768 - Large joint Procedure code (CPT) selection complete Results Reviewed Results Reviewed: X-rays of the patient's right knee show joint space narrowing, subchondral sclerosis, no acute bony abnormalities Assessment & Plan Assessment & Plan (1) Osteoarthritis of right knee: Code(s): M17.11 - Unilateral primary osteoarthritis, right knee Plan Mr. Caruso presents with progressively worsening right knee pain due to degenerative joint disease. I had a lengthy discussion with the patient regarding the treatment options. He wishes to hold off on surgery for as long as possible. I agree with this plan. He has not gotten good relief from cortisone injections in the past. Thus, the risks and benefits of a Durolane viscosupplementation injection were discussed at length with the patient. The patient wished to proceed with the injection. He tolerated the injection well. Prior to the injection 1 cc of clear fluid was aspirated from his right knee. The patient will continue with his activities as tolerated. He will follow up with me on an as-needed basis should his symptoms not plateau at an unacceptable level over the next few months. Feel free to call me at any time should questions regarding his orthopedic management arise. I spent 22 minutes in reviewing the patient's records and imaging studies, seeing the patient and documenting in the medical record. Orders: Orders AMB Joint Injection/Aspiration Today M17.11 - Unilateral primary osteoarthritis, right knee Coding Level of Care Code Est Pt Level 2 (82753) Diagnoses Osteoarthritis of right knee M17.11 CPT Codes Coding - 88976 Large joint: 91887 - Large joint ([id number])
[2023-03-22 10:44] VITALS: BMI 28.4
== END 2023-03-22 11:11 | disposition home or self-care (01) ==
PROVIDERS: PCP Family Medicine; Visit Provider Orthopaedic Surgery
DX: M17.11 Unilateral primary osteoarthritis, right knee (principal)
CPT/HCPCS: 20610

== ENCOUNTER → 2023-03-22 10:38 | Outpatient (BNVA) | payer OTHER, SELFPAY | PROVIDERS: PCP Family Medicine; Visit Provider Orthopaedic Surgery | DX: M17.11 Unilateral primary osteoarthritis, right knee (principal) | CPT/HCPCS: 20610; J7318 ==

== ENCOUNTER → 2023-04-15 10:45 | Outpatient (BNVA) | payer OTHER, SELFPAY | PROVIDERS: PCP Family Medicine; Visit Provider Orthopaedic Surgery ==

== ENCOUNTER 2023-04-25 11:00 | Outpatient (RCR) | payer OTHER, SELFPAY ==
--- NOTE | 2023-02-02 09:07 | MHC.PT.EP ---
[facility] [place] [facility] [place] Office [place] Office [address] Beck Mora [address] [phone] F: [phone] F: [phone] F: [phone] F: [phone] Physical Therapy Plan of Care Date of Evaluation: 02/02/23 Date of Surgery: NA Diagnosis: OA R KNEE Assessment: Pt IS 52 YO M REFERRED TO PT FROM ORTHO (DR SALAZAR) WITH R KNEE OA. Pt REPORTS 2 PROCEDURES ON R KNEE IN PAST (FOR MENISCUS INJURY AND BENIGN TUMOR). Pt WITH B THR AND SPINAL FUSION L4-5. IS ON DISABILITY. PRESENTS TO PT WITH ANTALGIC GT, LIMITED R KNEE ROM, DECREASED R LE STRENGTH AND C/O PAIN AFFECTING ADLS. HAS DISCUSSED TKR WITH DR SALAZAR. SHOULD BENEFIT FROM PT TO ADDRESS THESE ISSUES Frequency and Duration: The patient will be seen 2X/WK X 4 WKS THEN 1X/WK X 4 WKS Short Term Goals: 1. INCREASED AWARENESS KNEE CARE 2. FULL EXT R KNEE 3. I KT IF INDICATED 4. IMPROVED GT PATTERN (LESS LIMP, IMPROVED R KNEE ROM) [employer]sembl[employer] Over Goals: 1. DECREASED R KNEE PAIN AT LEAST 50% WITH ADLS 2. KNEE FLEX TO 120 3. IMPROVED LEFI ( SOC) Treatment Plan: Modalities to reduce pain, spasms and effusion. Manual therapy to restore motion and function. Therapeutic exercise to improve strength and flexibility. Neuromuscular re-education for posture and balance. Therapeutic activities to return to functional activities of daily living. Electronically signed by: DEON GARCIA PT Please sign and return to therapist. Thank you for your referral.
--- NOTE | 2023-03-10 11:58 | MHC.PT.OD ---
[facility] [place] Office [place] Office [place] Office [address] Beck Mora [address] [phone] F: [phone] F: [phone] F: [phone] F: [phone] Physical Therapy Daily Note Diagnosis: OA R KNEE Date of Surgery: NA Date of Evaluation: 02/02/23 Date of Treatment: 03/10/23 Treatments to Date: 10 Cancellations to Date: No Shows to Date: Authorized Visits: Insurance End Date: Precautions/ Contraindications:SPINAL FUSION 2014 (HELPED BUT BACK STILL BOTHERS HIM). HE HAS SEEN MULTIPLE SURGEONS SINCE SURGERY AND FURTHER SURGERY IS NOT RECOMMENDED. B THR (NOV/JAN 2020) Subjective: Pt expressing he is discouraged at times. Pt denies any history of R knee buckling in recent days. Continues to have pain with flexion, c/o pain in and out of the car. Pain Score and Location: 4 R KNEE Objective Flowsheet: Tests & Measures -5 to 110 degrees. Pt continues to wear neoprene eleeve/ Exercises Seated sci-fit bike #10, backward for gentle ROM x rocking a few seconds, then five minutes backward , then five forward. SLR into flexion x 2 sets 10R bilaterally, SL hip abduction x 2 sets 10R with pillow between the knees, prone hip extension with pillow under thigh x 15R on R side, posterior pelvic tilt x 2 sets 10R with isometric hip adduction squeeze, hookl-miguel angel bridge x 2 sets 10R with cues for core/glute stability activation x 2 sets 10R. Pt defers need to ice at home. AAROM knee flexion to 110 degrees with strap in supine /slideboard this date. Isometric QS, seated LAQ x 10R, seated HS stretch, seated gastroc and soleus stretches x 4R each standing. Discussed/encouragement for use of stationary bike at home progression of time. No tape Adjustment made for height std cane (two levels higher) for height, gait training with cane in L UE with step to<>step to pattern with education re: benefit in trialing cane in L UE vs R UE. Pt has trialed stationary bike at home seat 6, Pt deferred icing to home. Modalities Sensation intact. Skin intact. Applied Select unit cross patterned Ch1/Ch2 around knee joint in effort to reduce knee pain/improve tolerance for exercise. Pt rated pain 10/10 pre activity, wore on knee for 10 minutes, no change noted. Pt requesting removal of knee estim, poor tolerance for position. Removal of pads, no change in pain sx, skin intact. D/C activity of estim. Assessment: 03/10/23: Alejandro continues to wear neoprene sleeve expressing some reduction of sx. AROM -10 to 110. He reports use of stationary bike at home, we discussed gradual ramping duration of use, has been doing 10 minutes, encouraged working up to 15-20 minutes as tolerated. Alejandro has been using standard cane outside of the home, expresses has been going without sometimes in the home. He expresses reduction pain in the knee since start of care. Pt is scheduled to see Dr. Ritter today at 2:15pm. Will continue to progress LE strength with goal of CKC per pain tolerance. 03/07/23: -10 to 110. Pt continues to use knee brace. Pt expressing reduction in knee buckling in recent days. Has been compliant with HEP, now able to complete SLR with improvement. States, I can tell my knee is getting better because my Im paying more attention to my back pain. (Baseline chronic back pain). 02/28/23: Pt c/o some mild irritation of kneecap while biking but was able to make full revolutions at seat #10. Initiated SL hip adduction and prone hip extension with cues for quad contraction. AAROM heel slide to 105 degrees today (did bike first then heel slides). He continues to wear neoprene brace and uses a std cane. 02/24/23: Pt has attended 7 sessions of PT to date, demonstrating advancements in ROM, strength, and functional mobility. Pt continues to use neoprene sleeve daily. AROM R knee -10 degrees/ -8 PROM AAROM flexion flexion to 109 degrees. Pt advancing in mobility, continues to use std cane. Pt will benefit from ongoing PT twice weekly x 4 additional weeks to advance current status of ROM, strength, and mobility. 02/21/23: Active knee extension -8 degrees. Improved tolerance for SLR modified range. Pt was given an earlier appt at ortho 03/10/23 at 2:15 pm. 02/17/23: AROM -10 degrees at start of session to 85 degrees of flexion. Poor tolerance is low for participation in exercise. Pt appears at baseline prior to hx of fall. Poor tolerance for exercise. Denies hitting head, denies LOC. Pt challenged with QS, unable to perform SLR due to pain, and has pain with end range extension and AAROM knee flexion. Pt expresses history of fall in the shower no bruising or abrasions noted. Pt continues to exhibit antalgic gait, unchanged since fall. Pt denies injury with recent fall. He presents to office with use of neoprene sleeve on his R knee. Pt inquires about coby wrap, educated we do no want any wrap on his knee. Pt encouraged to speak with [facility] ortho about potential of hinged knee brace to prevent history of future falls, has been wearing neoprene sleeve with some relief. Pt does report frequent falls at home, states his cane broke when it was caught in a door. He was advised to use RW vs cane for stability. He requests to use cane. He was encouraged to call the orthopedic office for a follow-up due to limited tolerance/gains for PT at this time. He was encouraged to continue with exercises to facilitate improvement in his knee ROM to his tolerance. He has been encouraged to ice and elevate his R LE. 02/14/23: -14 degrees active start of care, -10 post session post stretching. Encouraged gentle stretching of calf and hamstring seated with strap to tolerance x 4R x 20 sec hold. Pt trialed with estim with no significant change in sx. Pt reports ongoing knee buckling, poor tolerance for knee flexion. Held bike this date due to poor sx. POOR SOFIA TO BIKE AND CLOSED CHAIN WORK. SIGNIF CREPITUS R KNEE AND CONTINUED C/O BACK PAIN PT Plan: STRETCH AND STRENGTHEN R KNEE/LE, MODALITIES/ST WORK PRN, PROP WORK, GT TRNG Short Term Goals: 1. INCREASED AWARENESS KNEE CARE 2. FULL EXT R KNEE 3. I KT IF INDICATED 4. IMPROVED GT PATTERN (LESS LIMP, IMPROVED R KNEE ROM) [facility] Goals: 1. DECREASED R KNEE PAIN AT LEAST 50% WITH ADLS 2. KNEE FLEX TO 120 3. IMPROVED LEFI ( SOC) Electronically signed by: Ivon Bonilla, PT, DPT
--- NOTE | 2023-05-24 11:59 | MHC.PT.DC ---
[facility] [place] Office [place] Office [place] Office [address] Beck [place] [address] [phone] F: [phone] F: [phone] F: [phone] F: [phone] Physical Therapy Discharge Report Diagnosis: OA R KNEE Date of Surgery: NA Date of Evaluation: 02/02/23 Date of Discharge: 05/24/23 Treatments to Date: 12 Cancellations to Date: No Shows to Date: Discharge Status: Improved Function Independent with HEP Patient Elected to Stop Recommend MD Follow-up Discharge Summary: Pt SEEN FOR INIT EVAL AND 12 VISITS. PER ASSESSMENT FROM LAST NOTE BY LISSETTE RAGLAND PT,DPT 04/14/23: Pt doing well overall in regard to home program. AAROM -3 to 116 degrees. Presents with use of std cane and neoprene sleeve. Reports has been trying to go without use of his knee sleeve at home and wants to trial taping instead of using his sleeve today. He is making good progress since having his knee injection and will benefit from a few additional sessions prior to D/C. Pt verbalized understanding of LTGs with PT at this time. Pt THEN CANCELLED LAST SCHEDULED VISIT 04/04/2023: Pt doing well overall, aarom FLEXION TO 120 DEGREES. 03/31/23: Pt was issued 4 way resisted hip exercise (flex/ext/add/abd) for home. Pt presents with neoprene sleeve on R knee. Pt defer AAROM knee flexion today, reports plans to work on it over the next few days. Pt also defers ice to home 03/10/23: Alejandro continues to wear neoprene sleeve expressing some reduction of sx. AROM -10 to 110. He reports use of stationary bike at home, we discussed gradual ramping duration of use, has been doing 10 minutes, encouraged working up to 15-20 minutes as tolerated. Alejandro has been using standard cane outside of the home, expresses has been going without sometimes in the home. He expresses reduction pain in the knee since start of care. Pt is scheduled to see Dr. Ritter today at 2:15pm. Will continue to progress LE strength with goal of CKC per pain tolerance. 03/07/23: -10 to 110. Pt continues to use knee brace. Pt expressing reduction in knee buckling in recent days. Has been compliant with HEP, now able to complete SLR with improvement. States, I can tell my knee is getting better because my Im paying more attention to my back pain. (Baseline chronic back pain). 02/28/23: Pt c/o some mild irritation of kneecap while biking but was able to make full revolutions at seat #10. Initiated SL hip adduction and prone hip extension with cues for quad contraction. AAROM heel slide to 105 degrees today (did bike first then heel slides). He continues to wear neoprene brace and uses a std cane. 02/24/23: Pt has attended 7 sessions of PT to date, demonstrating advancements in ROM, strength, and functional mobility. Pt continues to use neoprene sleeve daily. AROM R knee -10 degrees/ -8 PROM AAROM flexion flexion to 109 degrees. Pt advancing in mobility, continues to use std cane. Pt will benefit from ongoing PT twice weekly x 4 additional weeks to advance current status of ROM, strength, and mobility. 02/21/23: Active knee extension -8 degrees. Improved tolerance for SLR modified range. Pt was given an earlier appt at ortho 03/10/23 at 2:15 pm. 02/17/23: AROM -10 degrees at start of session to 85 degrees of flexion. Poor tolerance is low for participation in exercise. Pt appears at baseline prior to hx of fall. Poor tolerance for exercise. Denies hitting head, denies LOC. Pt challenged with QS, unable to perform SLR due to pain, and has pain with end range extension and AAROM knee flexion. Pt expresses history of fall in the shower no bruising or abrasions noted. Pt continues to exhibit antalgic gait, unchanged since fall. Pt denies injury with recent fall. He presents to office with use of neoprene sleeve on his R knee. Pt inquires about coby wrap, educated we do no want any wrap on his knee. Pt encouraged to speak with [facility] ortho about potential of hinged knee brace to prevent history of future falls, has been wearing neoprene sleeve with some relief. Pt does report frequent falls at home, states his cane broke when it was caught in a door. He was advised to use RW vs cane for stability. He requests to use cane. He was encouraged to call the orthopedic office for a follow-up due to limited tolerance/gains for PT at this time. He was encouraged to continue with exercises to facilitate improvement in his knee ROM to his tolerance. He has been encouraged to ice and elevate his R LE. 02/14/23: -14 degrees active start of care, -10 post session post stretching. Encouraged gentle stretching of calf and hamstring seated with strap to tolerance x 4R x 20 sec hold. Pt trialed with estim with no significant change in sx. Pt reports ongoing knee buckling, poor tolerance for knee flexion. Held bike this date due to poor sx. He verbalizes he was out of the medication for his restless leg syndrome for sometime and just got a notification of the pharmacy refilling it. POOR SOFIA TO BIKE AND CLOSED CHAIN WORK. SIGNIF CREPITUS R KNEE AND CONTINUED C/O BACK PAIN Electronically signed by: DEON GARCIA PT Please sign and return to therapist. Thank you for your referral.
== END 2023-05-24 11:59 | disposition home or self-care (01) ==
LOC: HO.PTWFD 11:00
PROVIDERS: PCP Family Medicine; Visit Provider Orthopaedic Surgery
DX: M17.11 Unilateral primary osteoarthritis, right knee (principal)
CPT/HCPCS: 97014; 97110; 97116; 97140; 97150; 97161; 97535

== ENCOUNTER 2023-04-26 14:19 | Outpatient (AMB) | payer OTHER, SELFPAY ==
[2023-04-26 14:31] VITALS: BP 109/54; PULSE 58; O2SAT 99; BMI 27.7
--- NOTE | 2023-04-26 14:31 | MHC.PC.OV ---
Vital Signs 04/26/23 14:31 Height 5 ft 10 in Weight 193 lb BMI 27.7 BP 109/54 L Blood Pressure Location Lt brachial Position Sitting Pulse 58 Pulse Source Pulse Oximeter Pulse Oximetry (%) 99 Intake Visit Reasons: follow up chronic pain Intake Note: Patient is here to follow up on chronic pain. He would like refill of Meloxicam. Allergies seasonal Allergy (Unknown, Uncoded 04/26/23 14:32) Sneezing Tobacco use date assessed: 10/22/22 Dental Screening Dental Screen Date: 04/26/23 Did you have a dental visit in the last 12 months?: Yes Did you have a dental problem in the last 6 months where you did not have access to dental care?: No Was dental information given to patient?: Patient has dentist HPI follow up chronic pain HPI Details 53 y/o male presents to f/u chronic pain. Pt scores high on his PHQ-9 today with a total score of 15. GISSEL-7 16. He states he is not seeing a psychiatrist/therapist. [facility] Medical History History of colon polyps Arthritis BP (high blood pressure) Surgical History Hx of colonoscopy History of hip replacement H/O knee surgery History of spinal fusion Family History Father No problems noted. Mother No problems noted. Social History Household Members: Family Housing: House Alcohol intake: never Patient Tobacco Use Status: Former Tobacco user Tobacco use type: Cigarette Cigarette Packs Per Day: 1 e-Cigarette/Vaping Use: Never Used Second Hand Smoke Exposure: No Substance Use Type: Marijuana service: No Current occupational status: disabled Current occupation: rt hand Current occupational exposures/hazards: No Cognitive needs: No Hearing needs: No Vision needs: No Questionnaire PHQ-9 Over the last 2 weeks, how often have you been bothered by any of the following problems? 1. Little interest or pleasure in doing things: nearly every day 2. Feeling down, depressed, or hopeless: nearly every day 3. Trouble falling or staying asleep, or sleeping too much: nearly every day 4. Feeling tired or having little energy: not at all 5. Poor appetite or overeating: nearly every day 6. Feeling bad about yourself - or that you are a failure or have let yourself or your family down: not at all 7. Trouble concentrating on things, such as reading the newspaper or watching television: nearly every day 8. Moving or speaking so slowly that other people could have noticed. Or the opposite - being so fidgety or restless that you have been moving around a lot more than usual: not at all 9. Thoughts that you would be better off or of hurting yourself in some way: not at all Total score: 15 Depression Screening Interpretation: Positive Depression Screening Done: Yes 30636 - PHQ-9 Billing: Yes Source: Developed by Drs. Mika Nguyen, Valorie Chen, [facility] and colleagues, with an educational jonas from [employer]. Thrive Questionnaire Date Thrive assessed: 04/26/23 I am a: Patient What is your living situation today?: I have a steady place to live Within the past 12 months, did the food you bought not last and you didn't have the money to get more?: Often true Within the past 12 months, did you worry whether your food would run out before you got money to buy more?: Often true Do you have trouble paying for medicines?: No Do you have trouble getting transportation to medical appointments?: No Do you have trouble paying your heating and electricity bill?: Yes Do you have trouble taking care of your child, family member or friend?: No Do you have trouble with day-to-day activities such as bathing, preparing meals, shopping, managing finances, etc.?: Yes Are you currently unemployed and looking for a job?: No Are you interested in more education?: No THRIVE Score: 3 AUDIT C Alcohol Use Questionnaire (AUDIT-C) 1. How often do you have a drink containing alcohol?: Never 3. How often do you have six or more drinks on one occasion?: Never Total Score: 0 GISSEL-7 AMB Questionnaire GISSEL-7 Date GISSEL - 7 assessed: 04/26/23 Feeling nervous, anxious, or on edge: 3 = Nearly every day Not being able to stop or control worryin = Nearly every day Worrying too much about different things: 3 = Nearly every day Trouble relaxin = Nearly every day Being so restless that it is hard to sit still: 3 = Nearly every day Becoming easily annoyed or irritable: 1 = Several days Feeling afraid as if something awful might happen: 0 = Not at all Total GISSEL-7 score (0-4 normal; 5-9 mild; 10-14 moderate; 15-21 severe): 16 Source: Developed by Drs. Mika Nguyen, Valorie Chen, [facility] and colleagues, with an educational jonas from [employer]. GISSEL-7 Assessment Billing GISSEL-7 Assessment Tool: GISSEL-7 Assessment 44530 Review of Systems Psych Reports anxiety and Reports depression Physical exam (Primary Care) Vital Signs: Last Vital Signs Pulse 58 04/26/23 14:31 BP 109/54 L 04/26/23 14:31 Pulse Ox 99 04/26/23 14:31 BMI result Body Mass Index 27.7 Tobacco/Smoking Status: Tobacco use Status Tobacco use date assessed 10/22/22 04/26/23 14:42 Patient Tobacco Use Status Former Tobacco user 04/26/23 14:42 Tobacco use type Cigarette 04/26/23 14:42 e-Cigarette/Vaping Use Never Used 04/26/23 14:42 PHQ-9: PHQ-9 Score PHQ-9: Total score 15 04/26/23 14:55 Depression Screening Interpretation: Positive Thrive Assessment: Date of Thrive Assessment Date Thrive assessed 04/26/23 04/26/23 14:42 Assessment and Plan Assessment & Plan (1) Chronic pain syndrome: Code(s): G89.4 - Chronic pain syndrome Plan: Ongoing?back?pain?which?is?fairly?well?controlled?but?not?resolved Taking?medications?as?prescribed. Needs?refill?on?meloxicam-send Attending?physical?therapy Continue?current?medication?regimen (2) Depression with anxiety: Code(s): F41.8 - Other specified anxiety disorders Plan: Patient?is?on?duloxetine?and?has?clonazepam?and?hydroxyzine. Start?significantly?elevated?PHQ-9?and?gissel?7 Continue?current?medications?and?follow-up?with?your?therapist?and?psychiatrist. (3) Low HDL (under 40): Code(s): E78.6 - Lipoprotein deficiency Plan: Unable?to?exercise LDL?cholesterol?is?well?controlled. Will?trial?[place]?3?fatty?acids/fish?oil?capsule. Orders: Orders Complete Blood Count Auto Diff Today D64.9 - Anemia, unspecified, Z00.00 - Encounter for general adult medical examination without abnormal findings Prostate Specific Antigen Scr Today Z12.5 - Encounter for screening for malignant neoplasm of prostate Lipid Panel Today E78.6 - Lipoprotein deficiency, Z00.00 - Encounter for general adult medical examination without abnormal findings Comprehensive Met. Panel Today I10 - Essential (primary) hypertension Medications: New omega-3 fatty acids-fish oil 300-500 mg (Fish Oil) 2 caps PO DAILY 180 caps 1RF 90 days Changed From meloxicam 15 mg PO DAILY 7 days 7 tabs 2RF To meloxicam 15 mg PO DAILY 30 tabs 2RF 30 days Refilled nicotine (polacrilex) (Nicorette) 4 mg buccal Q2H 330 ea 2RF 28 days buprenorphine 15 mcg/hour [employer] verified. Partial refill upon request. 1 patch transdermal QWEEK 4 ea 0RF 28 days G89.4 - Chronic pain syndrome, M51.36 - Other intervertebral disc degeneration, lumbar region, M54.16 - Radiculopathy, lumbar region, M96.1 - Postlaminectomy syndrome, not elsewhere classified Coding Level of Care Code Est Pt Level 3 (54417) Diagnoses Chronic pain syndrome G89.4 Depression with anxiety F41.8 Low HDL (under 40) E78.6 Additional Codes GISSEL-7 Assessment Billing - GISSEL-7 Assessment Tool: GISSEL-7 Assessment 05261 ([id number])
== END 2023-04-26 15:09 | disposition home or self-care (01) ==
PROVIDERS: PCP Family Medicine; Visit Provider Family Medicine
DX: G89.4 Chronic pain syndrome (principal); F41.8 Other specified anxiety disorders; E78.6 Lipoprotein deficiency
CPT/HCPCS: 96127; 99213

== ENCOUNTER 2023-05-26 10:10 | Day surgery (SDC) | payer OTHER, SELFPAY ==
--- NOTE | 2023-05-24 14:40 | HO.ANESPROP2 ---
HPI - Anesthesia Eval Consult details Narrative: 53yo M for Upper Endoscopy and Colonoscopy buprenorphine patch PMFSH Active Problems Active Problems: All Active Problems (Updated 01/25/23 @ 12:41 by Lobo Hunt) Depression with anxiety (Acute) History of colon polyps (Acute) Abscess (Acute) GERD (gastroesophageal reflux disease) (Acute) Abnormal lung sounds (Acute) Osteoarthritis of left knee (Acute) Osteoarthritis of right knee (Acute) Chronic, continuous use of opioids (Acute) Screening for prostate cancer (Acute) Screening for colon cancer (Acute) Adult general medical exam (Acute) Low HDL (under 40) (Acute) Hypertriglyceridemia (Acute) Mild anemia (Chronic) Elevated fasting glucose (Acute) Radiculopathy, lumbar region (Acute) Disc degeneration, lumbar (Acute) Abnormal chest x-ray (Acute) Rib pain on right side (Acute) Chronic pain syndrome (Acute) Postlaminectomy syndrome (Acute) Low back pain (Acute) Smoker (Acute) Anxiety (Acute) Knee pain (Acute) Back pain (Acute) Hip pain (Acute) Hypertension (Acute) Laboratory exam ordered as part of routine general medical examination (Acute) Left arm pain (Acute) Folliculitis (Acute) Tricompartment osteoarthritis of right knee (Acute) Chronic dermatitis of hands (Acute) Past Medical History Medical History History of colon polyps Arthritis BP (high blood pressure) Family History Family History Father No problems noted. Mother No problems noted. Surgical History Surgical History Hx of colonoscopy History of hip replacement H/O knee surgery History of spinal fusion Social History Social History Household Members: Family Housing: House Alcohol intake: never Patient Tobacco Use Status: Former Tobacco user Tobacco use type: Cigarette Cigarette Packs Per Day: 1 e-Cigarette/Vaping Use: Never Used Second Hand Smoke Exposure: No Substance Use Type: Marijuana service: No Current occupational status: disabled Current occupation: rt hand Current occupational exposures/hazards: No Cognitive needs: No Hearing needs: No Vision needs: No Meds Allergies Allergy/AdvReac Type Severity Reaction Status Date / Time seasonal Allergy Unknown Sneezing Uncoded 04/26/23 14:32 Home Medications Medication Instructions Recorded Confirmed Last Taken Type amlodipine 5 mg tablet 5 mg PO DAILY 08/19/20 03/22/23 Unknown History atenolol 25 mg tablet 25 mg PO BID 08/19/20 03/22/23 Unknown History atorvastatin 20 mg tablet 20 mg PO DAILY 08/19/20 03/22/23 Unknown History omeprazole 40 mg capsule,delayed 40 mg PO DAILY 08/19/20 03/22/23 Unknown History release clonazepam 1 mg tablet 1 mg PO Q8H 12/14/21 03/22/23 Unknown History clonazepam 2 mg tablet 2 mg PO BEDTIME 05/31/22 03/22/23 Unknown History hydroxyzine pamoate 50 mg capsule 50 mg PO TID 05/31/22 03/22/23 Unknown History Assessment and Plan Assessment Anesthesia Assessment: Chart Reviewed
[2023-05-26 12:01] VITALS: BP 145/38; PULSE 65; RESP 18; TEMP 36.7; O2SAT 98; BMI 26.5; BMI 35.0
[2023-05-26] MEDS: Lactated Ringers 1,000 ML 100 ML IVCONT (12:22)
--- NOTE | 2023-05-26 14:12 | P.CONAN_ITS ---
[facility] Active Problems Active Problems: All Active Problems (Updated 01/25/23 @ 12:41 by Lobo Hunt) Depression with anxiety (Acute) History of colon polyps (Acute) Abscess (Acute) GERD (gastroesophageal reflux disease) (Acute) Abnormal lung sounds (Acute) Osteoarthritis of left knee (Acute) Osteoarthritis of right knee (Acute) Chronic, continuous use of opioids (Acute) Screening for prostate cancer (Acute) Screening for colon cancer (Acute) Adult general medical exam (Acute) Low HDL (under 40) (Acute) Hypertriglyceridemia (Acute) Mild anemia (Chronic) Elevated fasting glucose (Acute) Radiculopathy, lumbar region (Acute) Disc degeneration, lumbar (Acute) Abnormal chest x-ray (Acute) Rib pain on right side (Acute) Chronic pain syndrome (Acute) Postlaminectomy syndrome (Acute) Low back pain (Acute) Smoker (Acute) Anxiety (Acute) Knee pain (Acute) Back pain (Acute) Hip pain (Acute) Hypertension (Acute) Laboratory exam ordered as part of routine general medical examination (Acute) Left arm pain (Acute) Folliculitis (Acute) Tricompartment osteoarthritis of right knee (Acute) Chronic dermatitis of hands (Acute) Past Medical History Medical History History of colon polyps Arthritis BP (high blood pressure) Functional capacity: independent ambulation Family History Family History Father No problems noted. Mother No problems noted. Family history of problems with anesthesia: No Surgical History Surgical History Hx of colonoscopy History of hip replacement H/O knee surgery History of spinal fusion History of Problems with Anesthesia: No Social History Social History Household Members: Family Housing: House Alcohol intake: never Patient Tobacco Use Status: Current everyday Tobacco user Tobacco use type: Cigarette Cigarette Packs Per Day: 1 Cigarettes Per Day: 5 e-Cigarette/Vaping Use: Never Used Second Hand Smoke Exposure: No Use of substances other than those prescribed or required for medical reasons: Yes Substance Use Type: Marijuana Substance Use Frequency: Weekly Are you DNR?: No Advance Directives: No Advance Directives Information Provided: Yes service: No Current occupational status: disabled Current occupation: rt hand Current occupational exposures/hazards: No Cognitive needs: No Hearing needs: No Vision needs: No Meds Allergies Allergy/AdvReac Type Severity Reaction Status Date / Time seasonal Allergy Unknown Sneezing Uncoded 04/26/23 14:32 Active Medications: Current Medications Lactated Ringer's (Lr) 1,000 mls @ 100 mls/hr IVCONT .Q10H CHITO Last Admin: 05/26/23 12:22 Dose: 100 mls/hr Home Medications Medication Instructions Recorded Confirmed Last Taken Type amlodipine 5 mg tablet 5 mg PO DAILY 08/19/20 03/22/23 Unknown History atenolol 25 mg tablet 25 mg PO BID 08/19/20 03/22/23 Unknown History atorvastatin 20 mg tablet 20 mg PO DAILY 08/19/20 03/22/23 Unknown History omeprazole 40 mg capsule,delayed 40 mg PO DAILY 08/19/20 03/22/23 Unknown History release clonazepam 1 mg tablet 1 mg PO Q8H 12/14/21 03/22/23 05/26/23 04:00 History clonazepam 2 mg tablet 2 mg PO BEDTIME 05/31/22 03/22/23 Unknown History hydroxyzine pamoate 50 mg capsule 50 mg PO TID 05/31/22 03/22/23 Unknown History Exam Height,Weight and Vital Signs: Height 5 ft 10 in Weight 83.915 kg Last Vital Signs Temp 98.0 F 05/26/23 12:01 Pulse 65 05/26/23 12:01 Resp 18 05/26/23 12:01 BP 145/38 H 05/26/23 12:01 Pulse Ox 98 05/26/23 12:01 O2 Del Method Room Air 05/26/23 12:01 Airway Mallampati Class: II TM Dist: >3cm Neck ROM: Full Heart: RRR Lungs: CTA Assessment and Plan Assessment Anesthesia Assessment: Anesthesia Plan Discussed and Smoking Cess. Discussed Final Anesthetic Review Family History of Problems with Anesthesia: No History of Problems with Anesthesia: No NPO: Yes ASA Class: III Final Preanesthetic Review: Meds/Allgs Chart Reviewed, Consent Obtained/Reviewed and Anes Risks/Benef Reviewed Patient Risk: Intermediate Procedure Risk: Low Anesthetic Plan Anesthetic Plan: MAC: Disposition: Standard PACU
--- NOTE | 2023-05-26 14:19 | MHC.SHP ---
Pre-Procedural Eval Section A - 24 Hr Update-Section A only Date of Service: 05/26/23 Section B - Complete if H&P > 30 days Chief Complaint: hx colonic polyps,gerd, screen for BE Details of Present Illness: PMH: History of colon polyps Arthritis BP (high blood pressure) Surgical History Hx of colonoscopy History of hip replacement H/O knee surgery History of spinal fusion Present Medications: see Short Stay Collaborative assessment Allergies: Allergies Allergy/AdvReac Type Severity Reaction Status Date / Time seasonal Allergy Unknown Sneezing Uncoded 04/26/23 14:32 Review of Systems Review of Systems Comment: Ten point ROS negative Exam Exam Comment: Gen appear: No acute distress HEENT: no icterus Chest: No overt resp distress Abd: soft, nontender, nondistended Psych: Stable affect, answering questions appropriately Neuro: A/Ox3 noted to move all extremities spontaneously Ext: no peripheral edema Plan Diagnosis/Plan: Unchanged I have reviewed the history and physical and performed a pertinent physical examination on my patient. No changes have occurred unless specified. Time Spent With Patient Time: Total time managing care of this patient today ____ minutes.
--- NOTE | 2023-05-26 14:54 | P.OP_ITS ---
Operative Note Operative Note Date of Service: 05/26/23 Narrative: Procedure: Upper endoscopy and colonoscopy Indication: GERD, Personal hx of polyps Endoscopist: Rand Scott MD Anesthesia Provider: Dr Kathya Bunch Anesthesia type: MAC Instrument: Olympus GIF-H190 [id number]-[id number] ?? EGD Procedure:?? The procedure, indications, preparation and potential complications were reviewed with the patient, who indicated understanding and gave written informed consent to proceed. A physical exam was performed. The endoscope was introduced through the mouth, and advanced to the antrum. The mucosa was carefully examined on slow withdrawal of the endoscope. The patient tolerated the procedure well. There were no immediate complications.? ? EGD Findings:? * Esophagus:? Normal esophageal mucosa. Z line was at 40 cm. * Stomach:?Scattered erosions and erythema of the body and antrum of the stomach. Retroflexion was performed in the cardia. Cold forceps biopsies were taken to rule out H pylori. * Duodenum: Mild fissuring of the mucosa noted margaret in the bulb. Cold forceps biopsies were taken from the duodenal bulb and 2nd portion of the duodenal to rule out celiac sprue. Colonoscopy Procedure: The patient was then turned for the colonoscopy. A digital rectal exam was performed which was abnormal for external hemorrhoids. A distal attachment cap was affixed to the tip of the scope and the colonoscope was then inserted through the anus and advanced through the colon to the cecum at 80 cm. Appendiceal orifice and ileocecal valve were identified. Mucosa was carefully examined under high definition white light as the instrument was slowly withdrawn in a retrograde panoramic fashion. Retroflexion was performed in rectum. The procedure was not difficult. There were no immediate obvious complications. The quality of the prep was BBPS: 1+1+2 = inadequate. Withdrawal time 11 minutes. Limitations: No limitations Colonoscopy Findings: Mucosa: Copious liquid and semi solid stool in the colon that was extensively flushed and suctioned. Mucosa otherwise normal to cecum and terminal ileum to the extent visualised. Protruding lesions: * Large internal hemorrhoids without stigmata of recent bleeding. Impressions:? * Normal esophagus * Gastritis (biopsy) * Abnormal duodenal mucosa (biopsy) * Poor prep * Hemorrhoids Recommendations: - Follow path results - If pos for H Pylori, will need treatment - Avoid smoking and NSAIDs - Colonoscopy prep was inadequate and will recommend a repeat colo within a year.
[2023-05-26 15:00] VITALS: BP 113/54; PULSE 60; RESP 12; TEMP 36.1; O2SAT 97
[2023-05-26 15:15] VITALS: BP 130/52; PULSE 57; RESP 20; TEMP 36.1; O2SAT 100
== END 2023-05-26 15:35 | disposition home or self-care (01) ==
PROVIDERS: PCP Family Medicine; Visit Provider Internal Medicine
PROC: (CPT 43239; principal; 2023-05-26 13:40)
DX: Z12.11 Encounter for screening for malignant neoplasm of colon (principal); Z86.010 Personal history of colon polyps; K64.8 Other hemorrhoids; K21.9 Gastro-esophageal reflux disease without esophagitis; K64.4 Residual hemorrhoidal skin tags; K29.50 Unspecified chronic gastritis without bleeding; I10 Essential (primary) hypertension; J30.2 Other seasonal allergic rhinitis; Z79.899 Other long term (current) drug therapy; F17.210 Nicotine dependence, cigarettes, uncomplicated
CPT/HCPCS: 43239; G0105; 88305; 88313; 88342; J2704

== ENCOUNTER → 2023-05-26 10:10 | Outpatient (BNV) | payer OTHER, SELFPAY | PROVIDERS: PCP Family Medicine; Visit Provider Internal Medicine | DX: Z12.11 Encounter for screening for malignant neoplasm of colon (principal); K64.8 Other hemorrhoids; Z86.010 Personal history of colon polyps; K31.89 Other diseases of stomach and duodenum | CPT/HCPCS: 43239; G0105 ==

== ENCOUNTER 2023-06-09 09:09 | Outpatient (AMB) | payer OTHER, SELFPAY ==
--- NOTE | 2023-06-09 09:11 | MHC.OFFVIS ---
Intake Vital Signs 06/09/23 09:16 Height 5 ft 10 in Weight 185 lb 3.013 oz BMI 26.6 BP 177/75 H Blood Pressure Location Lt brachial Position Sitting Pulse 63 Intake Visit Reasons: S/p egd/colon Intake Note: Alejandro presents in the office as a follow up EGD and COLO. CC: He states that he is not sure if it is a concern but he has not been eating much at all since the procedures. He also has not had a decent BM. He feels like he has to go it is all gas and a couple reese. He is in pain between his back and his knee. He wants to get a stool softener. Allergies seasonal Allergy (Unknown, Uncoded 06/09/23 09:11) Sneezing Medication List - Last Reconciled 06/09/23 by Hattie Menendez PA-C amlodipine 5 mg PO DAILY atenolol 25 mg PO BID atorvastatin 20 mg PO DAILY buprenorphine 15 mcg/hour 1 patch transdermal QWEEK 28 days celecoxib 200 mg (2 x 100 mg) PO BID 30 days clonazepam 1 mg PO Q8H clonazepam 2 mg PO BEDTIME duloxetine (Cymbalta) 120 mg (2 x 60 mg) PO BID 30 days hydroxyzine pamoate 50 mg PO TID meloxicam 15 mg PO DAILY 30 days naloxone 4 mg/actuation 4 mg intranasal Q2M PRN 28 days nicotine (polacrilex) (Nicorette) 4 mg buccal Q2H 28 days omega 2-lyx-ldj-fish oil 300-1,000 mg (Fish Oil) 1 cap PO DAILY 90 days omega-3 fatty acids mg PO DAILY omeprazole 40 mg PO DAILY pramipexole 0.125 mg PO BEDTIME 90 days pregabalin 50 mg PO BEDTIME 30 days HPI HPI Comments History of Present Illness Details A 53-year-old male follows up after recent EGD and colonoscopy. Blood pressure elevated Reviewed procedure report, pathology and recommendations Colonoscopy inadequate prep-he says he followed it- but hasnt eaten well due to back and knee pain- he has anxiety and stress all his life- EGD with normal-biopsy no H pylori- omprazole 40 mg-x 8 wks then decrease to20 mg- Patient presents he has intermittent constipation- needs stool softner Quit smoking 8 days go-this is also increases anxiety He is well has some issues with swelling property that causes anxiety as well. He has no hematemesis, hematochezia fever chills. He has no headaches, dizziness, shortness of breath, chest pain nausea or vomiting. [facility] Medical History History of colon polyps Arthritis BP (high blood pressure) Surgical History History of esophagogastroduodenoscopy (EGD) Hx of colonoscopy History of hip replacement H/O knee surgery History of spinal fusion Family History Father No problems noted. Mother No problems noted. Social History Household Members: Family Housing: House Alcohol intake: never Patient Tobacco Use Status: Current everyday Tobacco user Tobacco use type: Cigarette Cigarette Packs Per Day: 1 Cigarettes Per Day: 5 e-Cigarette/Vaping Use: Never Used Second Hand Smoke Exposure: No Substance Use Type: Marijuana service: No Current occupational status: disabled Current occupation: rt hand Current occupational exposures/hazards: No Cognitive needs: No Hearing needs: No Vision needs: No Review of Systems Const All systems reviewed & are unremarkable except as noted in HPI and below Card Denies chest pain and Denies dyspnea Resp Denies dyspnea GI Denies abdominal pain and Reports constipation Physical Exam Vital Signs: Last Vital Signs Pulse 63 06/09/23 09:16 BP 177/75 H 06/09/23 09:16 BMI result Body Mass Index 26.6 Const General: cooperative and comfortable Orientation/consciousness: patient oriented x3 Limitations: no limitations and ambulation with cane Eyes Sclerae: sclerae normal Resp Effort & Inspection: normal respiratory effort and able to speak in complete sentences Auscultation: clear to auscultation bilaterally, no rales, no rhonchi and no wheezes Cardio Rate: regular rate Rhythm: regular rhythm Heart sounds: S1 normal heart sound present and S2 normal heart sound present Neuro General: patient oriented x3 Psych Appearance: grossly normal Mental Status: mental status grossly normal Speech and movement: Clear speech present Affect: Anxious affect present Attitude: cooperative Thought process: Normal thought process present Thought content: Normal thought content present Insight: Good insight present (Psych) Results Reviewed Results Reviewed: Impressions:? Normal esophagus Gastritis (biopsy) Abnormal duodenal mucosa (biopsy) Poor prep Hemorrhoids Recommendations: - Follow path results - If pos for H Pylori, will need treatment - Avoid smoking and NSAIDs - Colonoscopy prep was inadequate and will recommend a repeat colo within a year. Dictated By: Rand Scott MD Signed By: <Electronically signed by Rand Scott MD> 05/26/23 1502 DD/ 1454 TD/TT: 05/26/23 1454 Outer Diameter Grinder: miguel: Alejandro Caruso Age/Sex: 53/M Attending: Rand Scott MD : 1970 Submitted by: Rand Scott MD Copies to: Jose E Dye MD MR #: [id number] Status: [facility] Collected: 05/26/23 Location: [facility] Received: 05/27/23 Diagnosis A. Duodenum, biopsy: Duodenal mucosa with preserved villi and no specific change. B. Stomach, random, biopsy: Gastric antral and body mucosa with chronic inactive gastritis; negative for H pylori, intestinal metaplasia and dysplasia. Clinical History Pre-Op Dx: GERD, history of polyps Post-Op Dx: Gastritis, hemorrhoids, poor prep Microscopic Description Microscopic sections reviewed. Immunostain for H. pylori on B is negative. AB/PAS stain on A shows no evidence of chronic injury. AB/PAS stain on B is negative for intestinal metaplasia. Controls stain appropriately. Material Received A. Bx duodenum B. Bx random gastric Gross Description Received in 2 parts. Part A: Received in formalin labeled ?bx duodenum? are 2 brandt rectangular tissue fragments measuring 0.35 and 0.45 cm, submitted in toto in a cassette labeled A. Part B: Received in formalin labeled ?bx random gastric? are 3 brandt irregular and rectangular tissue fragments ranging from 0.25-0.3 cm, submitted in toto in a cassette labeled B. CEDS Special studies ordered and performed: immunostain for H. pylori on B1; AB/PAS stains on A1 and B1. Copies To Jose E Dye MD [address] [facility] [place] [address] Patient: Alejandro Caruso Age/Sex: 53/M MR#: [id number] Page 1 of 2 Assessment & Plan Assessment & Plan (1) GERD (gastroesophageal reflux disease): Comment: EGD with biopsies no H pylori no Arana's Code(s): K21.9 - Gastro-esophageal reflux disease without esophagitis Plan: omepazole 40> 20 mg (2) History of colon polyps: Comment: No polyps inadequate prep Code(s): Z86.010 - Personal history of colonic polyps Plan: Repeat 1 year colonoscopy due to history of polyps inadequate prep (3) Hemorrhoids: Code(s): K64.9 - Unspecified hemorrhoids Plan: High-fiber diet Avoid strain Plan One year colonoscopy Maintain high-fiber diet Reflux precautions reviewed Continue PPI Monitor BP Medications: New docusate sodium (Colace) 200 mg (2 x 100 mg) PO BEDTIME 90 days 180 caps 4RF omeprazole 20 mg PO DAILY 90 days 90 caps 3RF hydrocortisone 2.5% (Proctozone-HC) apply AR BID prn 1 appl AR BID PRN 30 grams 3RF hemorrhoids Patient Instructions: One year colonoscopy recall due to history of polyps in inadequate prep Maintain high-fiber diet Reflux precautions reviewed Continue PPI Monitor BP,sx- Stress reduction Coding Level of Care Code Est Pt Level 3 (03262) Diagnoses GERD (gastroesophageal reflux disease) K21.9 History of colon polyps Z86.010 Hemorrhoids K64.9 Time Spent (min) 30
[2023-06-09 09:16] VITALS: BP 177/75; PULSE 63; BMI 26.6
== END 2023-06-09 10:46 | disposition home or self-care (01) ==
PROVIDERS: PCP Family Medicine; Visit Provider Physician Assistant
DX: K21.9 Gastro-esophageal reflux disease without esophagitis (principal); Z86.010 Personal history of colon polyps; K64.9 Unspecified hemorrhoids
CPT/HCPCS: 99213

== ENCOUNTER → 2023-06-09 09:09 | Outpatient (BNVA) | payer OTHER, SELFPAY | PROVIDERS: PCP Family Medicine; Visit Provider Physician Assistant | DX: K21.9 Gastro-esophageal reflux disease without esophagitis (principal); K64.9 Unspecified hemorrhoids; Z86.010 Personal history of colon polyps | CPT/HCPCS: 99212 ==

== ENCOUNTER 2023-06-21 10:27 | Outpatient (AMB) | payer MEDICARE, SELFPAY ==
[2023-06-21 10:30] VITALS: BMI 26.5
--- NOTE | 2023-06-21 10:30 | A.OFFVIS_ITS ---
Intake Vital Signs 06/21/23 10:30 Height 5 ft 10 in Weight 185 lb BMI 26.5 Intake Visit Reasons: Follow up Right Knee Durolane Injection Intake Note: Alejandro is a 53 year old male who presents with Right knee pain. Patient reports he had a Right knee Durolane injection on 03/22/2023 and it gave him good relef initially. The patient states that his pain has returned. He describes his pain as achy in nature. He has had cortisone injections in the past which gave him minimal relief. He has also tried Tylenol and anti-inflammatory medicines which gave him only mild relief. He wishes to hold off on surgery for as long as possible. Allergies seasonal Allergy (Unknown, Uncoded 06/09/23 09:11) Sneezing Medication List - Last Reconciled 06/21/23 by Mohit Khalil MD amlodipine 5 mg PO DAILY atenolol 25 mg PO BID atorvastatin 20 mg PO DAILY buprenorphine 15 mcg/hour 1 patch transdermal QWEEK 28 days celecoxib 200 mg (2 x 100 mg) PO BID 30 days clonazepam 1 mg PO Q8H clonazepam 2 mg PO BEDTIME docusate sodium (Colace) 200 mg (2 x 100 mg) PO BEDTIME 90 days duloxetine (Cymbalta) 120 mg (2 x 60 mg) PO BID 30 days hydrocortisone 2.5% (Proctozone-HC) 1 appl IA BID PRN hydroxyzine pamoate 50 mg PO TID meloxicam 15 mg PO DAILY 30 days naloxone 4 mg/actuation 4 mg intranasal Q2M PRN 28 days nicotine (polacrilex) (Nicorette) 4 mg buccal Q2H 28 days omega 2-wmd-qda-fish oil 300-1,000 mg (Fish Oil) 1 cap PO DAILY 90 days omega-3 fatty acids mg PO DAILY omeprazole 40 mg PO DAILY omeprazole 20 mg PO DAILY 90 days pramipexole 0.125 mg PO BEDTIME 90 days pregabalin 50 mg PO BEDTIME 30 days PFSH Medical History History of colon polyps Arthritis BP (high blood pressure) Surgical History History of esophagogastroduodenoscopy (EGD) Hx of colonoscopy History of hip replacement H/O knee surgery History of spinal fusion Family History Father No problems noted. Mother No problems noted. Social History Household Members: Family Housing: House Alcohol intake: never Patient Tobacco Use Status: Current everyday Tobacco user Tobacco use type: Cigarette Cigarette Packs Per Day: 1 Cigarettes Per Day: 5 e-Cigarette/Vaping Use: Never Used Second Hand Smoke Exposure: No Substance Use Type: Marijuana service: No Current occupational status: disabled Current occupation: rt hand Current occupational exposures/hazards: No Cognitive needs: No Hearing needs: No Vision needs: No Physical Exam Vital Signs: BMI result Body Mass Index 26.5 Const Other: Well-nourished well-developed very friendly male awake alert and oriented x3 in no acute distress Extrem Other: Bilateral lower extremity examination shows good capillary refill, no skin lesions noted, normal sensation light touch Right knee examination shows a minimal effusion, palpable crepitus with range of motion, pain with range of motion, no instability Results Reviewed Results Reviewed: X-rays of the patient's right knee show joint space narrowing, subchondral sclerosis, no acute bony abnormality Assessment & Plan Assessment & Plan (1) Osteoarthritis of right knee: Code(s): M17.11 - Unilateral primary osteoarthritis, right knee Plan Mr. Caruso presents with right knee pain due to degenerative joint disease. I had a lengthy discussion with the patient regarding the treatment options. He wishes to hold off on surgery for as long as possible. I agree with this plan. The patient has not gotten good relief from cortisone injections past. He has gotten good relief from viscosupplementation injections. Thus, I will see whether or not the patient's insurance company will cover a no other Durolane viscosupplementation injection. I will see him back once the injection is available. Feel free to call me at any time should questions regarding his o rthopedic management arise. I spent 19 minutes in reviewing the patient's records and imaging studies, seeing the patient and documenting in the medical record. Coding Level of Care Code Est Pt Level 2 (42449) Diagnoses Osteoarthritis of right knee M17.11
== END 2023-06-21 10:55 | disposition home or self-care (01) ==
PROVIDERS: PCP Family Medicine; Visit Provider Orthopaedic Surgery
DX: M17.11 Unilateral primary osteoarthritis, right knee (principal)
CPT/HCPCS: 99212

== ENCOUNTER → 2023-06-21 10:27 | Outpatient (BNVA) | payer OTHER, SELFPAY | PROVIDERS: PCP Family Medicine; Visit Provider Orthopaedic Surgery | DX: M17.11 Unilateral primary osteoarthritis, right knee (principal) | CPT/HCPCS: 99212 ==

== ENCOUNTER 2023-07-13 10:16 | Outpatient (REF) | payer MEDICARE, SELFPAY ==
[2023-07-13 10:32] LABS: MANUAL DIFF FLAG NO
[2023-07-13 10:47] LABS: Basophils Absolute Auto 0.1 X10*3/uL (0.0-0.2); Basophils Percent Auto 0.5 % (0-2); Eosinophils Absolute Auto 0.2 X10*3/uL (0.0-0.4); Eosinophils Percent Auto 1.8 % (0-4); Hematocrit 35.8 % (42.0-52.0); Hemoglobin 12.1 g/dl (14.0-18.0); Imm Gran Abs Auto 0.04 X10*3/uL (0.00-0.03); Imm Gran Pct Auto 0.4 % (0.0-0.4); Lymphocytes Absolute Auto 3.2 X10*3/uL (1.2-4.9); Lymphocytes Percent Auto 32.1 % (20-40); Mean Corpuscular HGB Conc 33.8 g/dl (31.0-36.0); Mean Corpuscular Hemoglobin 28.7 pg (27.0-33.0); Mean Platelet Volume 9.2 fL (9.4-12.4); Monocytes Absolute Auto 0.8 X10*3/uL (0.1-1.2); Monocytes Percent Auto 7.9 % (2-11); Neutrophils Absolute Auto 5.7 x10*3/uL (2.0-8.3); Neutrophils Percent Auto 57.3 % (45-73); Platelet Count 277 X10*3/uL (160-400); Red Blood Count 4.21 X10*6/uL (4.60-5.80); Red Cell Distribution Width 16.3 % (11.0-16.0)
[2023-07-13 11:16] LABS: Alanine Aminotransferase 12 U/L (0-40); Alkaline Phosphatase 82 U/L (39-117); Anion Gap 11 (12-20); Aspartate Amino Transferase 17 U/L (5-37); Bilirubin Total 0.3 mg/dL (0.0-1.0); Blood Urea Nitrogen 11 mg/dL (9-16); Calcium 9.3 mg/dL (8.4-10.2); Carbon Dioxide 27 mmol/L (22-29); Chloride 100 mmol/L (96-108); Cholesterol 150 mg/dL (<200); Estimated Glomerular Filt Rate > 60; Glucose Random 104 mg/dL (60-115); HDL Cholesterol 48 mg/dL (>40); LDL Cholesterol Calculated 83 mg/dL (<100); Potassium 4.9 mmol/L (3.3-5.1); Sodium 133 mmol/L (135-145); Triglycerides 95 mg/dL (<150)
[2023-07-13 11:47] LABS: Prostate Specific Antigen Scr 1.15 ng/mL (<0.05-4.0)
== END 2023-07-13 10:17 | disposition home or self-care (01) ==
LOC: HO.LAB 10:16
PROVIDERS: PCP Family Medicine; Visit Provider Family Medicine
DX: Z00.00 Encounter for general adult medical examination without abnormal findings (principal); Z12.5 Encounter for screening for malignant neoplasm of prostate; D64.9 Anemia, unspecified; E78.6 Lipoprotein deficiency; I10 Essential (primary) hypertension
CPT/HCPCS: 36415; 80053; 80061; 84153; 85025

== ENCOUNTER 2023-07-26 09:07 | Outpatient (AMB) | payer MEDICARE, SELFPAY ==
--- NOTE | 2023-07-26 09:11 | MHC.PC.OV ---
Vital Signs 07/26/23 09:12 Height 5 ft 10 in Weight 185 lb BMI 26.5 BP 138/62 Blood Pressure Location Rt brachial Position Sitting Pulse 71 Pulse Source Pulse Oximeter Pulse Oximetry (%) 98 Oxygen Delivery Method Room Air Intake Visit Reasons: f/u labs and chronic conditions Intake Note: Patient is here for follow up on labs and chronic conditions. Allergies seasonal Allergy (Unknown, Uncoded 07/26/23 09:15) Sneezing Tobacco use date assessed: 07/26/23 Dental Screening Dental Screen Date: 04/26/23 HPI f/u labs and chronic conditions HPI Details 53 y/o male presents to f/u labs and chronic conditions. Labs were drawn 07/13/23. Reviewed labs with pt. Ongoing mild anemia. Sodium mildly low at 133. Triglycerides 95. TC 150. LDL 83. HDL 48. HPI Comments History of Present Illness Details Documentation assistance for Jose E Dye MD, was provided by Lobo Hunt,? Folder Seamer on 07/26/2023 9:29 AM EST. I, Dr. Dye, have read, observed, and verified documentation. [facility] Medical History History of colon polyps Arthritis BP (high blood pressure) Surgical History History of esophagogastroduodenoscopy (EGD) Hx of colonoscopy History of hip replacement H/O knee surgery History of spinal fusion Family History Father No problems noted. Mother No problems noted. Social History Household Members: Family Housing: House Alcohol intake: never Patient Tobacco Use Status: Current everyday Tobacco user Tobacco use type: Cigarette Cigarette Packs Per Day: 1 Cigarettes Per Day: 5 e-Cigarette/Vaping Use: Never Used Second Hand Smoke Exposure: No Substance Use Type: Marijuana service: No Current occupational status: disabled Current occupation: rt hand Current occupational exposures/hazards: No Cognitive needs: No Hearing needs: No Vision needs: No Questionnaire Thrive Questionnaire Date Thrive assessed: 04/26/23 GISSEL-7 AMB Questionnaire GISSEL-7 Date GISSEL - 7 assessed: 04/26/23 Source: Developed by Drs. Mika Nguyen, Valorie Chen, Ramírez House and colleagues, with an educational jonas from [employer]. Review of Systems Const Denies chills, Denies fatigue, Denies fever(s), Denies headache(s) and Denies weakness ENT Denies dizziness and Denies headache(s) Card Denies dyspnea Resp Denies cough, Denies dyspnea, Denies wheezing and Denies other (shortness of breath) Musc Denies numbness and Denies tingling Neuro Denies dizziness, Denies headache(s), Denies numbness, Denies tingling and Denies weakness Psych Denies anxiety and Denies depression Endo Denies fatigue Aller/Immun Denies wheezing Physical exam (Primary Care) Vital Signs: Last Vital Signs Pulse 71 07/26/23 09:12 BP 138/62 07/26/23 09:12 Pulse Ox 98 07/26/23 09:12 Oxygen Delivery Method Room Air 07/26/23 09:12 BMI result Body Mass Index 26.5 Tobacco/Smoking Status: Tobacco use Status Tobacco use date assessed 07/26/23 07/26/23 09:17 Patient Tobacco Use Status Current everyday Tobacco 07/26/23 09:14 Tobacco use type Cigarette 07/26/23 09:14 e-Cigarette/Vaping Use Never Used 07/26/23 09:14 Thrive Assessment: Date of Thrive Assessment Date Thrive assessed 04/26/23 07/26/23 09:14 Const General: well developed; No acute distress Nutritional Appearance: well nourished Orientation/consciousness: [facility]: Yes normocephalic and Yes atraumatic Eyes General: appearance normal, both eyes and all related structures Pupils: Equal, round and reactive pupils present EOM: EOMs intact bilaterally Resp Effort & Inspection: normal respiratory effort Auscultation: clear to auscultation bilaterally Cardio Rate: regular rate Rhythm: regular rhythm Heart sounds: S1 normal heart sound present, S2 normal heart sound present, no gallops, no murmurs and no rubs Neuro General: patient oriented x3 and gait normal Cranial nerves: Yes Equal, round and reactive pupils present Psych Affect: normal affect Assessment and Plan Assessment & Plan (1) Chronic pain syndrome: Code(s): G89.4 - Chronic pain syndrome Plan: Currently?stable?on?buprenorphine,?celecoxib,?pregabalin?and?occasional?meloxicam?rather?than?celecoxib. Had?had?increased?pain?recently?and?used?a?prednisone?taper?with?very?good?success. Followed?by?Ortho?for?bilateral?knee?pain?from?severe?osteoarthritis?of?both?knees?and?he?receives?gel?injections?and?also?steroid?injections. Continue?current?medication?regimen Follow-up?with?ortho?as?recommended Will?be?due?for?urine?drug?screen?at?next?visit (2) Mild anemia: Code(s): D64.9 - Anemia, unspecified Plan: Mild?stable?normocytic?anemia. Followed?by?Hematology-Oncology As?above,?this?is?stable.??Follow-up?with?Heme-Onc?as?recommended (3) Hypertriglyceridemia: Code(s): E78.1 - Pure hyperglyceridemia Plan: Lipids?are?all?well?controlled. He?is?on?atorvastatin?20?mg?daily HDL?had?been?low?at?prior?lab?check?but?is?now?within?normal?range.??He?seems?to?be?walking?faster?and?moving?more?freely?with?good?pain?control?and?weight?loss. Orders: Orders Comprehensive [place]. Panel Fast Today Z00.00 - Encounter for general adult medical examination without abnormal findings TSH reflex Free T4 Today Z00.00 - Encounter for general adult medical examination without abnormal findings Microalbumin, Random (w Creat) Today I10 - Essential (primary) hypertension UA and rflx microscopic Today Z00.00 - Encounter for general adult medical examination without abnormal findings Medications: Refilled buprenorphine 15 mcg/hour MassPat verified. Partial refill upon request. 1 patch transdermal QWEEK 28 days 4 ea 0RF G89.4 - Chronic pain syndrome, M51.36 - Other intervertebral disc degeneration, lumbar region, M54.16 - Radiculopathy, lumbar region, M96.1 - Postlaminectomy syndrome, not elsewhere classified Coding Level of Care Code Est Pt Level 4 (53362) Diagnoses Chronic pain syndrome G89.4 Mild anemia D64.9 Hypertriglyceridemia E78.1
[2023-07-26 09:12] VITALS: BP 138/62; PULSE 71; O2SAT 98; BMI 26.5
== END 2023-07-26 09:49 | disposition home or self-care (01) ==
PROVIDERS: PCP Family Medicine; Visit Provider Family Medicine
DX: G89.4 Chronic pain syndrome (principal); D64.9 Anemia, unspecified; E78.1 Pure hyperglyceridemia
CPT/HCPCS: 99214

== ENCOUNTER 2023-08-11 09:00 | Outpatient (RCR) | payer MEDICARE, SELFPAY ==
[2023-08-08 08:06] VITALS: BP 160/60; PULSE 90; O2SAT 98
== END 2024-01-30 07:47 | disposition home or self-care (01) ==
LOC: HO.PTWFD 09:00
PROVIDERS: PCP Family Medicine; Visit Provider Family Medicine
DX: M54.50 Low back pain, unspecified (principal)
CPT/HCPCS: 97110; 97140; 97162; 97530

== ENCOUNTER 2023-08-18 14:13 | Outpatient (AMB) | payer MEDICARE, SELFPAY ==
[2023-08-18 14:23] VITALS: BMI 26.5
--- NOTE | 2023-08-18 14:23 | MHC.OFFVIS ---
Vital Signs 08/18/23 14:23 Height 5 ft 10 in Weight 185 lb BMI 26.5 Intake Visit Reasons: Newprob-left knee pain Intake Note: Alejandro is a 53 year old individual who presents with progressively worsening left knee pain. He also has low back pain which radiates into his left leg. He did undergo low back surgery by Dr. Jacobs in [place] several years ago. He got only temporary relief from that procedure. The patient has had cortisone injections given into both of his knees. The most recent set of injections gave him no relief. He has also had a viscosupplementation injection given into his right knee which gave him good relief. Has not had a viscosupplementation injection given into his left knee. Wishes to hold off on total knee replacement surgery for as long as possible. Has tried Tylenol and anti-inflammatory medicines which gave him minimal relief. He has also done physical therapy which aggravated his pain. Allergies seasonal Allergy (Unknown, Uncoded 08/18/23 14:34) Sneezing [facility] Medical History History of colon polyps Arthritis BP (high blood pressure) Surgical History History of esophagogastroduodenoscopy (EGD) Hx of colonoscopy History of hip replacement H/O knee surgery History of spinal fusion Family History Father No problems noted. Mother No problems noted. Social History Household Members: Family Housing: House Alcohol intake: never Patient Tobacco Use Status: Current everyday Tobacco user Tobacco use type: Cigarette Cigarette Packs Per Day: 1 Cigarettes Per Day: 5 e-Cigarette/Vaping Use: Never Used Second Hand Smoke Exposure: No Substance Use Type: Marijuana service: No Current occupational status: disabled Current occupation: rt hand Current occupational exposures/hazards: No Cognitive needs: No Hearing needs: No Vision needs: No Physical Exam Vital Signs: BMI result Body Mass Index 26.5 Const Other: Well-nourished well-developed very friendly male awake alert and oriented x3 in no acute distress Extrem Other: Bilateral lower extremity examination shows good capillary refill, no skin lesions noted, normal sensation light touch Left knee examination shows a minimal effusion, palpable crepitus with range of motion, pain with range of motion, no instability Results Reviewed Results Reviewed: X-rays of the patient's left knee show joint space narrowing, subchondral sclerosis, no acute bony abnormalities Assessment & Plan Assessment & Plan (1) Chronic low back pain: Code(s): M54.50 - Low back pain, unspecified; G89.29 - Other chronic pain Category: Medical (2) Osteoarthritis of left knee: Code(s): M17.12 - Unilateral primary osteoarthritis, left knee Category: Medical Plan Mr. Caruso presents with progressively worsening left knee pain due to degenerative joint disease. I had a lengthy discussion with the patient regarding the treatment options. He wishes to hold off on total knee replacement surgery for as long as possible. I agree with this plan. He has had cortisone injections in the past which gave him minimal relief. He did respond well to a right knee viscosupplementation injection. Thus, I will see whether or not his insurance company will cover a viscosupplementation injection for his left knee. I will see him back once the injection is available. The patient also has chronic low back pain which radiates into his left leg. I will have him evaluated in our pain management department here at [facility]. Feel free to call me at any time should questions regarding his orthopedic management arise. I spent 21 minutes in reviewing the patient's records and imaging studies, seeing the patient and documenting in the medical record. Orders: Referrals Pain Management Referral G89.29 - Other chronic pain, M54.50 - Low back pain, unspecified Coding Level of Care Code Est Pt Level 3 (69634) Diagnoses Chronic low back pain M54.50; G89.29 Osteoarthritis of left knee M17.12
== END 2023-08-18 14:43 | disposition home or self-care (01) ==
PROVIDERS: PCP Family Medicine; Visit Provider Orthopaedic Surgery
DX: M54.50 Low back pain, unspecified (principal); G89.29 Other chronic pain; M17.12 Unilateral primary osteoarthritis, left knee
CPT/HCPCS: 99213

== ENCOUNTER → 2023-08-18 14:13 | Outpatient (BNVA) | payer MEDICARE, SELFPAY | PROVIDERS: PCP Family Medicine; Visit Provider Orthopaedic Surgery | DX: M54.50 Low back pain, unspecified (principal); M17.12 Unilateral primary osteoarthritis, left knee; G89.29 Other chronic pain | CPT/HCPCS: 99212 ==

== ENCOUNTER 2023-09-28 08:15 | Outpatient (AMB) | payer MEDICARE, SELFPAY ==
--- NOTE | 2023-09-28 08:20 | MHC.OFFVIS ---
Intake Visit Reasons: Durolane Gel injection, LT Knee Intake Note: Alejandro is a 53 year old male who presents with complaints of progressively worsening left knee pain. He describes his pain as sharp in nature. His pain has gotten worse over the last year in spite of continued non operative treatments. Has had cortisone injections which gave him minimal relief. He has also tried Tylenol and anti-inflammatory medicines which gave him only mild relief. He has done physical therapy exercises which aggravated his pain. He wishes to hold off on surgery for as long as possible. Allergies seasonal Allergy (Unknown, Uncoded 09/28/23 08:20) Sneezing Medication List - Last Reconciled 09/29/23 by Mohit Khalil MD amlodipine 5 mg PO DAILY atenolol 25 mg PO BID atorvastatin 20 mg PO DAILY buprenorphine 15 mcg/hour 1 patch transdermal QWEEK 28 days clonazepam 1 mg PO Q8H clonazepam 2 mg PO BEDTIME docusate sodium (Colace) 200 mg (2 x 100 mg) PO BEDTIME 90 days duloxetine (Cymbalta) 120 mg (2 x 60 mg) PO BID 30 days hydrocortisone 2.5% 1 appl [place] BID PRN hydroxyzine pamoate 50 mg PO TID meloxicam 15 mg PO DAILY 30 days naloxone 4 mg/actuation 4 mg intranasal Q2M PRN 28 days omega 8-dav-xhy-fish oil 300-1,000 mg (Fish Oil) 1 cap PO DAILY 90 days omega-3 fatty acids mg PO DAILY omeprazole 40 mg PO DAILY omeprazole 20 mg PO DAILY 90 days pramipexole 0.125 mg PO BEDTIME 90 days prednisone 20 mg PO DAILY 5 days pregabalin 50 mg PO BEDTIME 30 days [facility] Medical History History of colon polyps Arthritis BP (high blood pressure) Surgical History History of esophagogastroduodenoscopy (EGD) Hx of colonoscopy History of hip replacement H/O knee surgery History of spinal fusion Family History Father No problems noted. Mother No problems noted. Social History Household Members: Family Housing: House Alcohol intake: never Patient Tobacco Use Status: Current everyday Tobacco user Tobacco use type: Cigarette Cigarette Packs Per Day: 1 Cigarettes Per Day: 5 e-Cigarette/Vaping Use: Never Used Second Hand Smoke Exposure: No Substance Use Type: Marijuana service: No Current occupational status: disabled Current occupation: rt hand Current occupational exposures/hazards: No Cognitive needs: No Hearing needs: No Vision needs: No Physical Exam Const Other: Well-nourished well-developed very friendly male awake alert and oriented x3 in no acute distress Extrem Other: Bilateral lower extremity examination shows good capillary refill, no skin lesions noted, normal sensation light touch Left knee examination shows a minimal effusion, palpable crepitus with range of motion, pain with range of motion, no instability Office Procedures Joint Injection/Drain Joint Injection/Drain Primary Site: left knee Prep: site was prepped using aseptic technique Injected: 60 mg of (Durolane viscosupplementation) and 1% plain lidocaine Procedure: The patient tolerated the procedure well Coding 14648 - Large joint Procedure code (CPT) selection complete Results Reviewed Results Reviewed: X-rays of the patient's left knee show joint space narrowing, subchondral sclerosis, no acute bony abnormalities Assessment & Plan Assessment & Plan (1) Osteoarthritis of left knee: Code(s): M17.12 - Unilateral primary osteoarthritis, left knee Category: Medical Plan Mr. Caruso presents with left knee pain due to degenerative joint disease. I had a lengthy discussion with the patient regarding the treatment options. He wishes hold off on surgery for as long as possible. I agree with this plan. He has not gotten good relief from cortisone injections in the past. Thus, the risks and benefits of a Durolane viscosupplementation injection were discussed at length with the patient. The patient wished to proceed. He tolerated the injection well. He will continue with his home exercise program. Will follow up with me on an as-needed basis should his symptoms not plateau at an unacceptable level over the next few months. Feel free to call me at any time should questions regarding his orthopedic management arise. I spent 22 minutes in reviewing the patient's records and imaging studies, seeing the patient and documenting in the medical record. Orders: Orders AMB Joint Injection/Aspiration 09/28/23 M17.12 - Unilateral primary osteoarthritis, left knee Coding Level of Care Code Est Pt Level 3 (50125) Diagnoses Osteoarthritis of left knee M17.12 CPT Codes Coding - 65378 Large joint: 82202 - Large joint ([id number])
== END 2023-09-28 08:43 | disposition home or self-care (01) ==
PROVIDERS: PCP Family Medicine; Visit Provider Orthopaedic Surgery
DX: M17.12 Unilateral primary osteoarthritis, left knee (principal)
CPT/HCPCS: 20610; 99213

== ENCOUNTER → 2023-09-28 08:15 | Outpatient (BNVA) | payer MEDICARE, SELFPAY | PROVIDERS: PCP Family Medicine; Visit Provider Orthopaedic Surgery | DX: M17.12 Unilateral primary osteoarthritis, left knee (principal) | CPT/HCPCS: 20610; 99212; J7318 ==

== ENCOUNTER 2023-11-16 11:39 | Outpatient (AMB) | payer MEDICARE, SELFPAY ==
--- NOTE | 2023-11-16 11:57 | A.OFFPC_ITS ---
Vital Signs 11/16/23 12:00 11/16/23 12:06 Height 5 ft 10 in Weight 195 lb 6 oz BMI 28.0 BP 155/70 H 149/66 H Blood Pressure Location Rt brachial Rt brachial Position Sitting Sitting Respiration 18 Pulse 66 Pulse Source Pulse Oximeter Temp 97.1 F Temp Source Tympanic Pulse Oximetry (%) 100 Oxygen Delivery Method Room Air Intake Visit Reasons: lower back pain/ med questions Intake Note: follow up for back pain and med f/u due to provider change Allergies seasonal Allergy (Unknown, Uncoded 09/28/23 08:20) Sneezing Tobacco use date assessed: 07/26/23 Dental Screening Dental Screen Date: 04/26/23 HPI lower back pain/ med questions HPI Details 53 y/o male presents to f/u low back ronda n. Recently seen orthopedics in September for worsening L knee pain. Had wished to hold off on surgery for as long as possible. Had tolerated injection well. Pt reports significant pain everywhere - L side of back, knees, leg and feet. Has difficulty sleeping due to the pain. No recent MRI - most recent one in 2021. [facility] Medical History History of colon polyps Arthritis BP (high blood pressure) Surgical History History of esophagogastroduodenoscopy (EGD) Hx of colonoscopy History of hip replacement H/O knee surgery History of spinal fusion Family History Father No problems noted. Mother No problems noted. Social History Household Members: Family Housing: House Alcohol intake: never Patient Tobacco Use Status: Former Tobacco user Tobacco use type: Cigarette Cigarette Packs Per Day: 1 Cigarettes Per Day: 5 e-Cigarette/Vaping Use: Never Used Second Hand Smoke Exposure: No Substance Use Type: Marijuana service: No Current occupational status: disabled Current occupation: rt hand Current occupational exposures/hazards: No Cognitive needs: No Hearing needs: No Vision needs: No Questionnaire Thrive Questionnaire Date Thrive assessed: 04/26/23 GISSEL-7 AMB Questionnaire GISSEL-7 Date GISSEL - 7 assessed: 04/26/23 Source: Developed by Drs. Mika Nguyen, Valorie Chen, Ramírez House and colleagues, with an educational jonas from [employer]. Review of Systems Const Denies chills, Denies fatigue, Denies fever(s), Denies headache(s) and Denies weakness ENT Denies dizziness and Denies headache(s) Card Denies dyspnea Resp Denies cough, Denies dyspnea, Denies wheezing and Denies other (shortness of breath) Musc Denies numbness and Denies tingling Neuro Denies dizziness, Denies headache(s), Denies numbness, Denies tingling and Denies weakness Psych Reports anxiety Endo Denies fatigue Aller/Immun Denies wheezing Physical exam (Primary Care) Vital Signs: Last Vital Signs Temp 97.1 F 11/16/23 12:00 Pulse 66 11/16/23 12:00 Resp 18 11/16/23 12:00 BP 149/66 H 11/16/23 12:06 Pulse Ox 100 11/16/23 12:00 Oxygen Delivery Method Room Air 11/16/23 12:00 BMI result Body Mass Index 28.0 Tobacco/Smoking Status: Tobacco use Status Tobacco use date assessed 07/26/23 11/16/23 12:04 Patient Tobacco Use Status Former Tobacco user 11/16/23 12:04 Tobacco use type Cigarette 11/16/23 12:04 e-Cigarette/Vaping Use Never Used 11/16/23 12:04 Thrive Assessment: Date of Thrive Assessment Date Thrive assessed 04/26/23 11/16/23 12:04 Const General: well developed; No acute distress Nutritional Appearance: well nourished Orientation/consciousness: patient oriented x3 HENMT Head: Yes normocephalic and Yes atraumatic Eyes General: appearance normal, both eyes and all related structures Pupils: Equal, round and reactive pupils present EOM: EOMs intact bilaterally Resp Effort & Inspection: normal respiratory effort Auscultation: clear to auscultation bilaterally Cardio Rate: regular rate Rhythm: regular rhythm Heart sounds: S1 normal heart sound present, S2 normal heart sound present, no gallops, no murmurs and no rubs Neuro General: patient oriented x3 and gait normal Cranial nerves: Yes Equal, round and reactive pupils present Psych Affect: normal affect Assessment and Plan Assessment & Plan (1) Chronic low back pain: Code(s): M54.50 - Low back pain, unspecified; G89.29 - Other chronic pain Plan: 53-year-old?male?with?history?of post- laminectomy?syndrome?and?MRI?from?2021?showing central canal stenosis and foraminal stenosis who?has?undergone?treatment?with neuro?surgery?in?the?past?and?more?rece ntly?pain?management,?now?with?worsening?pain?despite?pain?medications. Last?MRI?was?2?years?ago- ordering?new?MRI?and?will?determine?if?patient?needs?to?be?seen?by?pain?manageme nt?or?Neurosurgery. Christensen d?recently?sent?a?script?to?increase?pregabalin?and?patient?is?picking?that?up?t gerardo. No?medication?changes?today.??Continue?buprenorphine,?pregabalin?and?meloxicam Also?use?topicals?as?needed (2) Knee pain: Code(s): M25.569 - Pain in unspecified knee Plan: Pain?medications?as?above Can?follow-up?with?ortho?as?recommended (3) Depression with anxiety: Code(s): F41.8 - Other specified anxiety disorders Plan: Patient?has?been?taking?clonazepam?1?mg?tablets?twice?a?day?and?a?2?mg?tablet?at ?bedtime.??These?were?prescribed?by?his?psych?med?provider. Patient?is?changing?psych?med?provider's. Will?prescribe?clonazepam?1?mg?tablet?3?times?a?day?and?patient?will?work?on?get ting?a?new?psych?med?provider. (4) Claustrophobia: Code(s): F40.240 - Claustrophobia Plan: Patient?will?need?open?MRI Orders: Orders MR lumbar spine wo/w con Today M54.16 - Radiculopathy, lumbar region, M96.1 - Postlaminectomy syndrome, not elsewhere classified Medications: Changed From clonazepam take 1 tablet by mouth at 8am, take 1 tablet at noon, take 2 tablets at be dtime. 1 mg PO Q8H To clonazepam Masspat Verified 1 mg PO Q8H 90 tabs 0RF 30 days Coding Level of Care Code Est Pt Level 3 (47950) Diagnoses Chronic low back pain M54.50; G89.29 Knee pain M25.569 Depression with anxiety F41.8 Claustrophobia F40.240
[2023-11-16 12:00] VITALS: BP 155/70; PULSE 66; RESP 18; TEMP 36.2; O2SAT 100; BMI 28.0
[2023-11-16 12:06] VITALS: BP 149/66
== END 2023-11-16 14:05 | disposition home or self-care (01) ==
PROVIDERS: PCP Family Medicine; Visit Provider Family Medicine
DX: M54.50 Low back pain, unspecified (principal); G89.29 Other chronic pain; M25.569 Pain in unspecified knee; F41.8 Other specified anxiety disorders; F40.240 Claustrophobia
CPT/HCPCS: 99213

== ENCOUNTER 2023-12-29 08:13 | Outpatient (AMB) | payer MEDICARE, SELFPAY ==
[2023-12-29 08:19] VITALS: BMI 28.0
--- NOTE | 2023-12-29 08:19 | MHC.OFFVIS ---
Vital Signs 12/29/23 08:19 Height 5 ft 10 in Weight 195 lb BMI 28.0 Intake Visit Reasons: Low back pain Intake Note: Alejandro is a 53 year old individual who presents with complaints of progressively worsening low back pain which radiates down his left leg to his left foot. The patient states that he did undergo low back surgery by Dr. Jacobs several years ago. He got only temporary relief from that procedure. The patient describes his low back pain as unbearable. He has been sleeping in a recliner chair because of his pain for the last year. He has tried Tylenol, anti-inflammatory medicines and a pain patch which gave him minimal relief. He walks with a cane because of his low back pain and associated left leg weakness. Allergies seasonal Allergy (Unknown, Uncoded 09/28/23 08:20) Sneezing [facility] Medical History History of colon polyps Arthritis BP (high blood pressure) Surgical History History of esophagogastroduodenoscopy (EGD) Hx of colonoscopy History of hip replacement H/O knee surgery History of spinal fusion Family History Father No problems noted. Mother No problems noted. Social History Household Members: Family Housing: House Alcohol intake: never Patient Tobacco Use Status: Former Tobacco user Tobacco use type: Cigarette Cigarette Packs Per Day: 1 Cigarettes Per Day: 5 e-Cigarette/Vaping Use: Never Used Second Hand Smoke Exposure: No Substance Use Type: Marijuana service: No Current occupational status: disabled Current occupation: rt hand Current occupational exposures/hazards: No Cognitive needs: No Hearing needs: No Vision needs: No Physical Exam Vital Signs: BMI result Body Mass Index 28.0 Back/Spine/Pelvis Other: Low back examination shows left-sided paraspinal muscle tenderness, pain with range of motion, positive straight leg raise test on the left at 70 degrees Results Reviewed Results Reviewed: Rayus lumbar spine MRI report shows evidence of left-sided severe stenosis at level L5-S1 Assessment & Plan Assessment & Plan (1) Lumbar stenosis: Code(s): M48.061 - Spinal stenosis, lumbar region without neurogenic claudication Category: Medical (2) Low back pain: Code(s): M54.50 - Low back pain, unspecified Category: Medical Plan Mr. Caruso presents with progressively worsening low back pain which radiates down his left leg most likely due to lumbar stenosis. Thus, I will put in a referral to the neurosurgery department here at [facility]. The patient will follow-up as instructed. Feel free to call me at any time should questions regarding his orthopedic management arise. I spent 22 minutes in reviewing the patient's records and imaging studies, seeing the patient and documenting in the medical record. Orders: Referrals Neuro Spine Referral M48.061 - Spinal stenosis, lumbar region without neurogenic claudication Coding Level of Care Code Est Pt Level 3 (00331) Complex EM visit Add On G2211 Diagnoses Lumbar stenosis M48.061 Low back pain M54.50
== END 2023-12-29 08:51 | disposition home or self-care (01) ==
PROVIDERS: PCP Family Medicine; Visit Provider Orthopaedic Surgery
DX: M48.061 Spinal stenosis, lumbar region without neurogenic claudication (principal)
CPT/HCPCS: 99213; G2211

== ENCOUNTER → 2023-12-29 08:13 | Outpatient (BNVA) | payer MEDICARE, SELFPAY | PROVIDERS: PCP Family Medicine; Visit Provider Orthopaedic Surgery | DX: M48.061 Spinal stenosis, lumbar region without neurogenic claudication (principal) | CPT/HCPCS: 99212 ==

== ENCOUNTER 2023-12-30 08:34 | Outpatient (AMB) | payer MEDICARE, SELFPAY ==
--- NOTE | 2023-12-30 08:42 | A.SPINEOV_ITS ---
Intake Visit Reasons: LBP Intake Note: Mr. Caruso is here today c/o low back pain, MRI done at [facility]. Installation Technician Required: No Allergies seasonal Allergy (Severe, Uncoded 12/30/23 08:47) Sneezing Assessment & Plan Assessment & Plan (1) Lumbar stenosis: Code(s): M48.061 - Spinal stenosis, lumbar region without neurogenic claudication Category: Medical Plan Dear Dr Khalil, Thank you for referring MR Caruso to our office today. He is a very nice 53-year-old gentleman underwent I posterior lumbar interbody fusion by Dr. Jacobs in 2014 that was successful in the sense that it helped the symptoms he had at the time. Within a few years he started to develop left-sided leg pain which was shooting down from his left low back into his buttock, posterolateral thigh and into his calf. It was also extending into his foot with feelings of tingling and numbness. He was seen at the office at [facility] and was evaluated again by Dr. Jacobs and felt not to be surgical that it could be something related to old nerve pain. The symptoms have just progressively gotten worse ov er time. He has tremendous amounts of pain with standing and walking. He can even have trouble sleeping at night. He walks with a cane and uses a shopping cart to get through the grocery store. He has been through physical therapy add nausea not only before his original surgery but afterwards without any specific improvements. He has not had any injections or aged or disabled carer.. He has been taking meloxicam, Lyrica and buprenorphine patches. He thinks these are probably helping him somewhat but the nerve pain is so intense that it is over taking his life. He is here today to see us with a follow up MRI showing severe left L5 foraminal stenosis. PMH: Hypertension, anxiety, depression, fusion L4-5, he has had surgery on his knees, bilateral hip replacements, GERD. He denies any history of cardiac events, strokes, liver disease, pulmonary disease, renal disease, major intra- abdominal surgeries, blood clots, cancer, bleeding etc.. Social hx: He quit smoking 8 months ago, occasionally uses marijuana when he can afford it, does not drink for 11 years Medications: Pradaxa Levy, Lyrica, omeprazole, omega-3, meloxicam, buprenorphine patch, atenolol, amlodipine, Klonopin, Cymbalta, hydroxyzine Allergies: No drug allergies Physical exam: He is awake alert oriented x3, he appears uncomfortable standing up and maintaining an upright posture gives him pain down his leg. His strength is normal in the left lower extremity. Mildly reduced sensation at the ankle on the foot. Imaging review: Lumbar MRI done with and without gadolinium at the [facility] shows that he has severe left L5 foraminal stenosis. Evidence of solid fusion at the L4-5 interbody site with hardware intact. Impression: 53-year-old male who underwent a posterior lumbar interbody fusion with in 2015 who has had residual left leg pain which fits an L5 distribution down into his foot with sensory changes into his big toe. He has had conservative treatment in the form of tincture of time, multiple medication trials and physical therapy. At this point the patient is in agony all throughout the day just trying to mobilize and get around and do basic activities. He is very quite frustrated with his quality of life. He saw Dr. Jacobs previously, and it was felt that he just had chronic nerve pain and he was not offered any intervention for severe left L5 foraminal stenosis. I reviewed the imaging with Dr. Anand and because of the amount of compression, and the fact that the pain developed a number of years after the surgery, he thinks this is some degree of adjacent segment disease causing compression in the foramen and the patient would benefit from a left L5 foraminotomy. His overall disc quality that level is excellent and he really does not have an overriding amount of back pain, so he does not think we need to extend the fusion down to that area. We quoted success rate at 90%. Pt was given risk and benefits of surgery including but not limited to infection, hematoma , nerve injury,durotomy, weakness,bowel/bladder injury, persistent pain, as well as the option to continue with conservative treatment and patient wishes to proceed with surgery. Pt is aware they should stop their meloxicam 7 days prior to surgery. All questions were answered to the best of our ability. If there is anything about this patients medical history that we have overlooked or concerns you have about us proceeding with surgery we would appreciate any input you can offer. Thank you for allowing us to care for your patient. The total time spent with this visit with this patient was 45 minutes reviewing history, physical exam, lumbar imaging review, and implementation of treatment plan or further diagnostic testing Darinel Anand MD,PhD [facility] Coding Level of Care Code New Pt Level 4 (20816) Diagnoses Lumbar stenosis M48.061
== END 2023-12-30 09:49 | disposition home or self-care (01) ==
PROVIDERS: PCP Family Medicine; Visit Provider Physician Assistant
DX: M48.061 Spinal stenosis, lumbar region without neurogenic claudication (principal)
CPT/HCPCS: 99204

== ENCOUNTER → 2023-12-30 08:34 | Outpatient (BNVA) | payer MEDICARE, SELFPAY | PROVIDERS: PCP Family Medicine; Visit Provider Physician Assistant | DX: M48.061 Spinal stenosis, lumbar region without neurogenic claudication (principal) | CPT/HCPCS: 99202 ==

== ENCOUNTER 2024-01-04 10:09 | Outpatient (AMB) | payer MEDICARE, SELFPAY ==
--- NOTE | 2024-01-04 10:33 | MHC.PC.OV ---
Vital Signs 01/04/24 10:36 Height 5 ft 10 in Weight 182 lb 4 oz BMI 26.1 BP 146/63 H Blood Pressure Location Lt brachial Position Sitting Respiration 16 Pulse 66 Pulse Source Pulse Oximeter Temp 97.0 F Temp Source Temporal Artery Scan Pulse Oximetry (%) 99 Oxygen Delivery Method Room Air Intake Visit Reasons: med review appt Intake Note: med review Allergies seasonal Allergy (Severe, Uncoded 01/04/24 10:33) Sneezing Tobacco use date assessed: 07/26/23 Dental Screening Dental Screen Date: 04/26/23 HPI med review appt HPI Details 53 y/o male presents to f/u chronic conditions such as low back pain, knee pain. Notes he follows up with Dr. Khalil for his knees/back. Reports ongoing leg pain/numbness. Chronic back pain. Had seen Dr. Sun at the spine clinic - notes he has a surgery planned for his back. Blood pressure today 146/63, 66p. He is on amlodipine 5mg, atenolol 25mg b.i.d. HPI Comments History of Present Illness Details Documentation assistance for Jose E Dye MD, was provided by Lobo Hunt, Track Service Person on 01/04/2024 at 11:14 AM EST. I, Dr. Dye, have read, observed, and verified documentation. [facility] Medical History History of colon polyps Arthritis BP (high blood pressure) Surgical History History of esophagogastroduodenoscopy (EGD) Hx of colonoscopy History of hip replacement H/O knee surgery History of spinal fusion Family History Father No problems noted. Mother No problems noted. Social History Household Members: Family Housing: House Alcohol intake: never Patient Tobacco Use Status: Former Tobacco user Tobacco use type: Cigarette Cigarette Packs Per Day: 1 Cigarettes Per Day: 5 e-Cigarette/Vaping Use: Never Used Second Hand Smoke Exposure: No Substance Use Type: Marijuana service: No Current occupational status: disabled Current occupation: rt hand Current occupational exposures/hazards: No Cognitive needs: No Hearing needs: No Vision needs: No Questionnaire PHQ-9 Over the last 2 weeks, how often have you been bothered by any of the following problems? 1. Little interest or pleasure in doing things: more than half the days 2. Feeling down, depressed, or hopeless: nearly every day 3. Trouble falling or staying asleep, or sleeping too much: nearly every day 4. Feeling tired or having little energy: nearly every day 5. Poor appetite or overeating: nearly every day 6. Feeling bad about yourself - or that you are a failure or have let yourself or your family down: nearly every day 7. Trouble concentrating on things, such as reading the newspaper or watching television: several days 8. Moving or speaking so slowly that other people could have noticed. Or the opposite - being so fidgety or restless that you have been moving around a lot more than usual: not at all 9. Thoughts that you would be better off or of hurting yourself in some way: not at all Total score: 18 Source: Developed by Drs. Mika Nguyen, Valorie Chen, Ram[facility]rez House and colleagues, with an educational jonas from [employer]. Thrive Questionnaire Date Thrive assessed: 04/26/23 I am a: Patient What is your living situation today?: I have a steady place to live Within the past 12 months, did the food you bought not last and you didn't have the money to get more?: Often true Within the past 12 months, did you worry whether your food would run out before you got money to buy more?: Often true Do you have trouble paying for medicines?: Yes Do you have trouble getting transportation to medical appointments?: No Do you have trouble paying your heating and electricity bill?: Yes Do you have trouble taking care of your child, family member or friend?: No Do you have trouble with day-to-day activities such as bathing, preparing meals, shopping, managing finances, etc.?: Yes Are you currently unemployed and looking for a job?: No Are you interested in more education?: No Please select the resources that you would like help with: Food, Paying for medicine and Utilities Currently or been in a relationship where the following occur: No concerns reported THRIVE Score: 3 AUDIT C Alcohol Use Questionnaire (AUDIT-C) 1. How often do you have a drink containing alcohol?: Never Total Score: 0 GISSEL-7 AMB Questionnaire GISSEL-7 Date GISSEL - 7 assessed: 04/26/23 Feeling nervous, anxious, or on edge: 3 = Nearly every day Not being able to stop or control worryin = Nearly every day Worrying too much about different things: 3 = Nearly every day Trouble relaxin = Nearly every day Being so restless that it is hard to sit still: 3 = Nearly every day Becoming easily annoyed or irritable: 3 = Nearly every day Feeling afraid as if something awful might happen: 1 = Several days Total GISSEL-7 score (0-4 normal; 5-9 mild; 10-14 moderate; 15-21 severe): 19 Source: Developed by Drs. Mika Nguyen, Valorie Chen, [employer]rez [employer] and colleagues, with an educational jonas from [employer]. Review of Systems Const Denies chills, Denies fatigue, Denies fever(s), Denies headache(s) and Denies weakness ENT Denies dizziness and Denies headache(s) Card Denies dyspnea Resp Denies cough, Denies dyspnea, Denies wheezing and Denies other (shortness of breath) Musc Denies numbness and Denies tingling Neuro Denies dizziness, Denies headache(s), Denies numbness, Denies tingling and Denies weakness Psych Denies anxiety and Denies depression Endo Denies fatigue Aller/Immun Denies wheezing Physical exam (Primary Care) Vital Signs: Last Vital Signs Temp 97.0 F 01/04/24 10:36 Pulse 66 01/04/24 10:36 Resp 16 01/04/24 10:36 BP 146/63 H 01/04/24 10:36 Pulse Ox 99 01/04/24 10:36 Oxygen Delivery Method Room Air 01/04/24 10:36 BMI result Body Mass Index 26.1 Tobacco/Smoking Status: Tobacco use Status Tobacco use date assessed 07/26/23 01/04/24 10:38 Patient Tobacco Use Status Former Tobacco user 01/04/24 10:38 Tobacco use type Cigarette 01/04/24 10:38 e-Cigarette/Vaping Use Never Used 01/04/24 10:38 PHQ-9: PHQ-9 Score PHQ-9: Total score 18 01/04/24 10:38 Thrive Assessment: Date of Thrive Assessment Date Thrive assessed 04/26/23 01/04/24 10:38 Currently or been in a relationship where the following occur: No concerns reported Const General: well developed; No acute distress Nutritional Appearance: well nourished Orientation/consciousness: patient oriented x3 HENMT Head: Yes normocephalic and Yes atraumatic Eyes General: appearance normal, both eyes and all related structures Pupils: Equal, round and reactive pupils present EOM: EOMs intact bilaterally Resp Effort & Inspection: normal respiratory effort Neuro General: patient oriented x3 and gait normal Cranial nerves: Yes Equal, round and reactive pupils present Psych Affect: normal affect Coding Level of Care Code Est Pt Level 4 (29384) Diagnoses Chronic low back pain M54.50; G89.29 Chronic pain syndrome G89.4 Knee pain M25.569 Hypertension I10 Assessment & Plan Assessment & Plan (1) Chronic low back pain: Code(s): M54.50 - Low back pain, unspecified; G89.29 - Other chronic pain Category: Medical Plan: Ongoing?chronic?low?back?pain Now?followed?by?Dr. Anand and?has?appointment?for?surgery?January?. Has?had?a?small?amount?of?relief?with?medications?such?as?meloxicam,?pregabalin,?buprenorphine?and intermittent?treatment?with?prednisone. Patient?requests?a?short?course?of?prednisone?which?I?will?provide. Reviewed?with?patient?that?prednisone?treatment?should?be?used?sparingly?and?as?infrequently?as?possible. Will?continue?his?other?medications?including?buprenorphine.??He?will?be?holding?his?meloxicam?7?days?prior?to?his?procedure. Follow-up?with ?as?recommended (2) Chronic pain syndrome: Code(s): G89.4 - Chronic pain syndrome Category: Medical Plan: As?above (3) Knee pain: Code(s): M25.569 - Pain in unspecified knee Category: Medical Plan: Wearing?knee?brace Pain?medications?as?prescribed Followed?by? (4) Hypertension: Code(s): I10 - Essential (primary) hypertension Category: Medical Plan: Blood?pressure?consistently?too?high. Adding?losartan?to?his?blood?pressure?regimen Medications: New prednisone 40 mg (2 x 20 mg) PO DAILY 5 days 10 tabs 0RF losartan 25 mg PO DAILY 90 days 90 tabs 2RF
[2024-01-04 10:36] VITALS: BP 146/63; PULSE 66; RESP 16; TEMP 36.1; O2SAT 99; BMI 26.1
== END 2024-01-04 12:06 | disposition home or self-care (01) ==
PROVIDERS: PCP Family Medicine; Visit Provider Family Medicine
DX: M54.50 Low back pain, unspecified (principal); G89.29 Other chronic pain; G89.4 Chronic pain syndrome; M25.569 Pain in unspecified knee; I10 Essential (primary) hypertension

== ENCOUNTER → 2024-01-04 10:09 | Outpatient (BNVA) | payer MEDICARE, SELFPAY | PROVIDERS: PCP Family Medicine; Visit Provider Family Medicine | DX: M54.50 Low back pain, unspecified (principal); G89.29 Other chronic pain; I10 Essential (primary) hypertension; M25.561 Pain in right knee; M25.562 Pain in left knee | CPT/HCPCS: 96127; 99212 ==

== ENCOUNTER → 2024-01-16 11:07 | Outpatient (BNV) | payer MEDICARE, SELFPAY | PROVIDERS: PCP Family Medicine; Visit Provider Internal Medicine | DX: R00.1 Bradycardia, unspecified (principal) | CPT/HCPCS: 93010 ==

== ENCOUNTER 2024-02-02 07:44 | Day surgery (SDC) | payer MEDICARE, SELFPAY ==
--- NOTE | 2024-01-16 | ECG_ITS ---
Test Reason : PRE OP Blood Pressure : / mmHG Vent. Rate : 057 BPM Atrial Rate : 057 BPM P-R Int : 168 ms QRS Dur : 092 ms QT Int : 424 ms P-R-T Axes : 052 054 071 degrees QTc Int : 412 ms Sinus bradycardia Otherwise normal ECG When compared with ECG of 22-JUL-2020 16:28, Nonspecific T wave abnormality no longer evident in Anterior leads Referred By: Elizabeth Loaiza Electronically Signed By:LEOPOLDO SANTANA
[2024-01-16 10:35] VITALS: BP 142/65; PULSE 58; RESP 20; O2SAT 100; BMI 26.5
--- NOTE | 2024-01-16 10:44 | HO.ANESPROP2 ---
Documented by User: Elizabeth Loaiza NP 01/17/24 09:57 HPI - Anesthesia Eval Consult details Narrative: 53yo M for Left L5 Foraminotomy, 02/02/24 Buprenorphine patch 15mcg - to continue periop s/p spinal fusion 2014 No recent illness No CP/SOB with minimal activity r/t back pain GERD: ppi controls PMFSH Active Problems Active Problems: All Active Problems Lumbar stenosis (Acute) Claustrophobia (Acute) Chronic low back pain (Acute) Hemorrhoids (Acute) Depression with anxiety (Acute) History of colon polyps (Acute) Abscess (Acute) GERD (gastroesophageal reflux disease) (Acute) Abnormal lung sounds (Acute) Osteoarthritis of left knee (Acute) Osteoarthritis of right knee (Acute) Chronic, continuous use of opioids (Acute) Screening for prostate cancer (Acute) Screening for colon cancer (Acute) Adult general medical exam (Acute) Low HDL (under 40) (Acute) Hypertriglyceridemia (Acute) Mild anemia (Chronic) Elevated fasting glucose (Acute) Radiculopathy, lumbar region (Acute) Disc degeneration, lumbar (Acute) Abnormal chest x-ray (Acute) Rib pain on right side (Acute) Chronic pain syndrome (Acute) Postlaminectomy syndrome (Acute) Low back pain (Acute) Smoker (Acute) Anxiety (Acute) Knee pain (Acute) Back pain (Acute) Hip pain (Acute) Hypertension (Acute) Laboratory exam ordered as part of routine general medical examination (Acute) Left arm pain (Acute) Folliculitis (Acute) Tricompartment osteoarthritis of right knee (Acute) Chronic dermatitis of hands (Acute) Past Medical History Medical History Chronic pain syndrome Disc degeneration, lumbar Mild anemia Osteoarthritis GERD (gastroesophageal reflux disease) Depression with anxiety Claustrophobia HTN (hypertension) Arthritis Family History Family History Father No problems noted. Mother No problems noted. Family history of problems with anesthesia: No Surgical History Surgical History History of esophagogastroduodenoscopy (EGD) Hx of colonoscopy History of hip replacement H/O knee surgery History of spinal fusion History of Problems with Anesthesia: No Social History Social History Household Members: Family Housing: House Are you a primary career technical education instructor to a significant other at home: No Do you presently have visiting nurse or other home services: No Alcohol intake: never Patient Tobacco Use Status: Former Tobacco user Tobacco use type: Cigarette Cigarette Packs Per Day: 1 Cigarettes Per Day: 5 Years Smoked: 30 e-Cigarette/Vaping Use: Never Used Second Hand Smoke Exposure: No Use of substances other than those prescribed or required for medical reasons: Yes Substance Use Type: Marijuana Substance Use Type Other:: smokes/edibles (has medical card) Substance Use Frequency: Daily Have you been hit, kicked, punched, or otherwise hurt by someone within the past year? If so, by whom?: No Spiritual Healthcare Practices: none Sikhism Healthcare Practices: Muslim Cultural Healthcare Practices: none Are you DNR?: No Advance Directives Information Provided: Yes (as above noted) Advance Directives on File: No Recently lost weight without trying: No Eating poorly because of decreased appetite: No Nutrition Risks: No Nutritional Risk Poor oral hygiene: No (some missing teeth) service: No Current occupational status: disabled Current occupation: rt hand Current occupational exposures/hazards: No Cognitive needs: No Hearing needs: No Vision needs: No Meds Allergies Allergy/AdvReac Type Severity Reaction Status Date / Time Seasonal Allergies Allergy Severe Sneezing Verified 02/02/24 08:00 Home Medications ?Medication ?Instructions ?Recorded ?Confirmed ?Last Taken ?Type buprenorphine 15 mcg/hour weekly 1 patch transdermal QWEEK pain 01/16/24 01/16/24 Unknown History transdermal patch control for sleep docusate sodium 100 mg capsule 200 mg PO BEDTIME PRN Constipation 01/16/24 01/16/24 Unknown History (Colace) losartan 25 mg tablet 25 mg PO QAM 01/16/24 01/16/24 02/01/24 History meloxicam 15 mg tablet 15 mg PO QAM 01/16/24 01/16/24 01/26/24 History omeprazole 20 mg capsule,delayed 20 mg PO QAM 01/16/24 01/16/24 02/02/24 History release Exam Pertinent Lab Results Pertinent Lab Results: Lab Results 01/16/24 Range/Units 11:30 WBC 8.4 (4.8-10.8) X10*3/uL RBC 3.77 L (4.60-5.80) X10*6/uL Hgb 11.6 L (14.0-18.0) g/dl Hct 34.9 L (42.0-52.0) % MCV 92.6 (80.0-98.0) fL MCH 30.8 (27.0-33.0) pg MCHC 33.2 (31.0-36.0) g/dl RDW 14.0 (11.0-16.0) % Plt Count 219 (160-400) X10*3/uL MPV 10.4 (9.4-12.4) fL Absolute Nucleated RBC 0.000 (0.0-0.012) X10*3/uL Nucleated RBC % (auto) 0.0 (0.0-0.2) /100WBC Sodium 134 L (135-145) mmol/L Potassium 4.2 (3.3-5.1) mmol/L Chloride 101 (96-108) mmol/L Carbon Dioxide 27 (22-29) mmol/L Anion Gap 10 L (12-20) BUN 12 (9-16) mg/dL Creatinine 0.76 (0.5-1.4) mg/dL Estim Creat Clear Calc 113.3 Estimated GFR > 60 Random Glucose 89 (60-115) mg/dL Calcium 9.3 (8.4-10.2) mg/dL Narrative Narrative: EKG 12/2023 Vent. Rate : 057 BPM Atrial Rate : 057 BPM P-R Int : 168 ms QRS Dur : 092 ms QT Int : 424 ms P-R-T Axes : 052 054 071 degrees QTc Int : 412 ms Sinus bradycardia Otherwise normal ECG When compared with ECG of 22-JUL-2020 16:28, Nonspecific T wave abnormality no longer evident in Anterior leads Airway Mallampati Class: II TM Dist: >3cm Neck ROM: Full Heart: RRR Lungs: CTAB Assessment and Plan Assessment Anesthesia Assessment: Anesthesia Plan Discussed and PAT Visit Final Anesthetic Review Family History of Problems with Anesthesia: No History of Problems with Anesthesia: No Documented by User: Giovana Rosales MD 02/02/24 09:53 [facility] Active Problems Active Problems: All Active Problems Lumbar stenosis (Acute) Claustrophobia (Acute) Chronic low back pain (Acute) Hemorrhoids (Acute) Depression with anxiety (Acute) History of colon polyps (Acute) Abscess (Acute) GERD (gastroesophageal reflux disease) (Acute) Abnormal lung sounds (Acute) Osteoarthritis of left knee (Acute) Osteoarthritis of right knee (Acute) Chronic, continuous use of opioids (Acute) Screening for prostate cancer (Acute) Screening for colon cancer (Acute) Adult general medical exam (Acute) Low HDL (under 40) (Acute) Hypertriglyceridemia (Acute) Mild anemia (Chronic) Elevated fasting glucose (Acute) Radiculopathy, lumbar region (Acute) Disc degeneration, lumbar (Acute) Abnormal chest x-ray (Acute) Rib pain on right side (Acute) Chronic pain syndrome (Acute) Postlaminectomy syndrome (Acute) Low back pain (Acute) Smoker (Acute)-Quit Anxiety (Acute) Knee pain (Acute) Back pain (Acute) Hip pain (Acute) Hypertension (Acute) Laboratory exam ordered as part of routine general medical examination (Acute) Left arm pain (Acute) Folliculitis (Acute) Tricompartment osteoarthritis of right knee (Acute) Chronic dermatitis of hands (Acute) Past Medical History Medical History Chronic pain syndrome Disc degeneration, lumbar Mild anemia Osteoarthritis GERD (gastroesophageal reflux disease) Depression with anxiety Claustrophobia HTN (hypertension) Arthritis Family History Family History Father No problems noted. Mother No problems noted. Family history of problems with anesthesia: No Surgical History Surgical History History of esophagogastroduodenoscopy (EGD) Hx of colonoscopy History of hip replacement H/O knee surgery History of spinal fusion History of Problems with Anesthesia: No Social History Social History Household Members: Family Housing: House Are you a primary career technical education instructor to a significant other at home: No Do you presently have visiting nurse or other home services: No Alcohol intake: never Patient Tobacco Use Status: Former Tobacco user Tobacco use type: Cigarette Cigarette Packs Per Day: 1 Cigarettes Per Day: 5 Years Smoked: 30 e-Cigarette/Vaping Use: Never Used Second Hand Smoke Exposure: No Use of substances other than those prescribed or required for medical reasons: Yes Substance Use Type: Marijuana Substance Use Type Other:: smokes/edibles (has medical card) Substance Use Frequency: Daily Have you been hit, kicked, punched, or otherwise hurt by someone within the past year? If so, by whom?: No Spiritual Healthcare Practices: none Sikhism Healthcare Practices: Muslim Cultural Healthcare Practices: none Are you DNR?: No Advance Directives Information Provided: Yes (as above noted) Advance Directives on File: No Recently lost weight without trying: No Eating poorly because of decreased appetite: No Nutrition Risks: No Nutritional Risk Poor oral hygiene: No (some missing teeth) service: No Current occupational status: disabled Current occupation: rt hand Current occupational exposures/hazards: No Cognitive needs: No Hearing needs: No Vision needs: No Meds Allergies Allergy/AdvReac Type Severity Reaction Status Date / Time Seasonal Allergies Allergy Severe Sneezing Verified 02/02/24 08:00 Home Medications ?Medication ?Instructions ?Recorded ?Confirmed ?Last Taken ?Type buprenorphine 15 mcg/hour weekly 1 patch transdermal QWEEK pain 01/16/24 01/16/24 Unknown History transdermal patch control for sleep docusate sodium 100 mg capsule 200 mg PO BEDTIME PRN Constipation 01/16/24 01/16/24 Unknown History (Colace) losartan 25 mg tablet 25 mg PO QAM 01/16/24 01/16/24 02/01/24 History meloxicam 15 mg tablet 15 mg PO QAM 01/16/24 01/16/24 01/26/24 History omeprazole 20 mg capsule,delayed 20 mg PO QAM 01/16/24 01/16/24 02/02/24 History release Exam Height,Weight and Vital Signs: Height 5 ft 10 in Weight 83.915 kg Vital Signs Temp Pulse Resp BP Pulse Ox O2 Del Method 02/02/24 08:12 97.9 F 74 18 150/70 H 98 Room Air Airway Mallampati Class: II TM Dist: >3cm Neck ROM: Full Loose/Missing/Broken Teeth: Yes (Missing some teeth) Assessment and Plan Assessment Anesthesia Assessment: Anesthesia Plan Discussed, PAT Visit and Chart Reviewed Final Anesthetic Review Family History of Problems with Anesthesia: No History of Problems with Anesthesia: No NPO: Yes ASA Class: III Final Preanesthetic Review: No Changes in Pt Med Stat, Meds/Allgs Chart Reviewed, Consent Obtained/Reviewed and Anes Risks/Benef Reviewed Patient Risk: Intermediate Procedure Risk: Low Assessment/Block/Sedation in SS: Assess/Block/Sedation-SS Anesthetic Plan Anesthetic Plan: GA Disposition: Standard PACU
[2024-01-16 11:45] LABS: Hematocrit 34.9 % (42.0-52.0); Hemoglobin 11.6 g/dl (14.0-18.0); Mean Corpuscular HGB Conc 33.2 g/dl (31.0-36.0); Mean Corpuscular Hemoglobin 30.8 pg (27.0-33.0); Mean Corpuscular Volume 92.6 fL (80.0-98.0); Mean Platelet Volume 10.4 fL (9.4-12.4); Platelet Count 219 X10*3/uL (160-400); Red Blood Count 3.77 X10*6/uL (4.60-5.80); White Blood Count 8.4 X10*3/uL (4.8-10.8)
[2024-01-16 12:39] LABS: Anion Gap 10 (12-20); Blood Urea Nitrogen 12 mg/dL (9-16); Calcium 9.3 mg/dL (8.4-10.2); Carbon Dioxide 27 mmol/L (22-29); Chloride 101 mmol/L (96-108); Creatinine Clr Calc Pharmacy 113.3; Estimated Glomerular Filt Rate > 60; Glucose Random 89 mg/dL (60-115); Potassium 4.2 mmol/L (3.3-5.1); Sodium 134 mmol/L (135-145)
[2024-02-02] VITALS (19 sets, daily range): BP systolic 150–200; BP diastolic 54–77; PULSE 62–86; RESP 12–20; TEMP 36.1–36.6; O2SAT 97–100; BMI 26.5
[2024-02-02] MEDS: Lactated Ringers 1,000 ML 100 ML IVCONT (08:05)
[2024-02-02] MEDS: Gabapentin 300 MG CAPSULE PO (08:42)
[2024-02-02] MEDS: methocarbamoL 750 MG TABLET PO (08:42)
--- NOTE | 2024-02-02 08:42 | P.HPSUR_ITS ---
Pre-Procedural Eval Section A - 24 Hr Update-Section A only Date of Service: 02/02/24 The patient is an INPATIENT: No Changes since office visit: No Cold of Flu in the past 2 weeks, No New Medical Problems, No Changes in Medication and No Patient answered all questions The patient has been examined within 24 hours of the surgical procedure. The History & Physical has been completed within 30 days and I have reviewed it.: No Section B - Complete if H&P > 30 days Chief Complaint: Spinal stenosis, lumbar region without neurogenic Allergies: Allergies Allergy/AdvReac Type Severity Reaction Status Date / Time Seasonal Allergies Allergy Severe Sneezing Verified 02/02/24 08:00 Review of Systems Sugical H&P ROS: Negative: Constitution, Cardiovascular, Respiratory, Neurological, Psychiatric, Hem-Onc, Allergic/Immunologic, Gastrointestinal, Genitourinary, Musculoskeletal, Integumentary, Endocrine and Eyes/ Ears/Nose/Throat Exam Surgical H&P Exam: Normal: HEENT, Normal: Heart, Normal: Lungs, Normal: Extremities, Normal: Abdomen, Normal: Skin (thumb looks normal, no erythema, no infection ) and Normal: Neurological Plan Diagnosis/Plan: Unchanged Left L5 foraminotomy Time Spent With Patient Time: Total time managing care of this patient today __6__ minutes.
--- NOTE | 2024-02-02 08:46 | PC.NURSE ---
Dr. Anand assessed patient right thumb due to patient updating him that he started an antibiotic for a right thumb infection, only has [address] Anand stated ok to proceed.
--- NOTE | 2024-02-02 09:38 | P.DS_ITS ---
DS: Providers Provider Date of Service: 02/02/24 Date of discharge: 02/02/24 Primary care physician: Jose E Dye MD Admitting clinician: Bharat Anand DS: Diagnosis Discharge Diagnosis (1) Lumbar stenosis: Status: Acute DS: Summary Time Attestation Discharge Coordination Time (in mins): 5 Quality: Safe Use of Opioids Does Pt have an Active Cancer Diagnosis on the Problem List?: No Quality: Stroke Does the patient have a stroke diagnosis?: No Physical Exam Vital Signs: Vital Signs: Last Vital Signs Temp 97.9 F 02/02/24 08:12 Pulse 74 02/02/24 08:12 Resp 18 02/02/24 08:12 BP 150/70 H 02/02/24 08:12 Pulse Ox 98 02/02/24 08:12 O2 Del Method Room Air 02/02/24 08:12 BMI result Body Mass Index 26.5 Discharge Plan Discharge Patient Disposition: Home, Self-Care Referrals: Jose E Dye MD [Primary Care Provider] - 1 Week Discharge Medications: New oxycodone 5 mg tablet 5 mg PO Q4H PRN (Reason: pain) Qty: 30 0RF Rx Instructions: Partial Fill upon patient request. docusate sodium [Colace] 100 mg capsule 100 mg PO BID Qty: 20 0RF Continued naloxone 4 mg/actuation spray,non-aerosol 4 mg intranasal Q2M PRN (Reason: opioid overdose) 28 Days Qty: 2 3RF Rx Instructions: spray 1 dose into ONE nostril; alternate nostrils w each dose until help arrives hydrocortisone 2.5 % cream with perineal applicator 1 appl SC BID PRN (Reason: hemorrhoids) Qty: 30 3RF pramipexole 0.125 mg tablet 0.125 mg PO BEDTIME 90 Days Qty: 90 0RF clonazepam 1 mg tablet 1 mg PO Q8H 30 Days Qty: 90 0RF Rx Instructions: Masspat Verified pregabalin 75 mg capsule 75 mg PO BEDTIME 30 Days Qty: 30 0RF meloxicam 15 mg tablet 15 mg PO QAM losartan 25 mg tablet 25 mg PO QAM omeprazole 20 mg capsule,delayed release(DR/EC) 20 mg PO QAM buprenorphine 15 mcg/hour patch weekly 1 patch transdermal QWEEK Rx Instructions: MassPat verified. Partial refill upon request. docusate sodium [Colace] 100 mg capsule 200 mg PO BEDTIME PRN (Reason: Constipation) Discharge Orders: Discharge Order (Routine); Ordered 02/02/24 Ordered By: Darinel Sun Diet: Advance to usual diet Activity on Discharge: As tolerated Activity Restrictions/Additional Instructions: After your spinal surgery we ask you to observe the following restrictions/enoch delines: Activity: It is normal to feel some discomfort as you increase your activity, but that will improve with time. We ask you avoid heavy lifting or acitivities that cause pain. As a general rule, 8lbs is a safe limit for lifting right after surgery. Walk as much as you feel comfortable but not to exhaustion. You will feel extra tired the first few days after surgery. Stay well hydrated. It is OK to walk up and down stairs You may return to driving when you are off narcotics (such as vicodin, oxycodone, dilaudid, etc), and you are back to normal functional capacity. If you have any concerns please check with office before driving. Return to work is specific to each patient and each surgery, so please speak with your doctor/PA at first follow up. Please bring paperwork such as FMLA at that time if you need it filled out. Medications: For optimum pain control, it is best to start with a combination of 500 mg of Tylenol every 4 hours with 600 mg of Motrin every 8 hours, and use narcotics as needed in between for breakthrough pain. We will give you a short supply of narcotics after surgery (usually one weeks worth). If you need more please call the office but do not use more than prescribed. You will need to give our office 48 hours notice if you need narcotics refilled and we do not fill narcotics on weekends or evenings. If you are on a narcotic, it is a good idea to take a stool softener such as colace or senna to avoid constipation If you take blood thinner such as aspirin, Plavix, Coumadin, Effient, Eliquis etc for conditions such as Afib, DVT, Pulmonary embolus, coronary disease, stents etc please speak with your surgeon about specific details as to when you can resume these medications. You can resume NSAIDs on post op day 1 (eg: Motrin, Naproxen, etc). Follow up: Please call the office, , after surgery to arrange a 3 week follow up for wound check. Wound Care: You may remove your dressing on the first day after surgery. ?You may ?leave open to air. Please do not remove the steri strips underneath. they will fall off on their own in one week. IT IS NORMAL FOR THE WOUND TO OOZE OR BE BLOODY FOR A FEW DAYS AFTER SURGERY. ?IF THIS HAPPENS JUST PLACE NEW DRESSING OVER IT TO AVOID STAINING CLOTHES. You may shower on post op day # 1 We ask that you do not let the water soak the wound. If it does get wet, just towel dry lightly. Please do not scrub your incision or place any type of chemical/ointment on the wound. No tub baths, pools or jacuzzis for one month. If you have any leaking or redness from your wound, or fevers, please call office Print Language: Croatian
--- NOTE | 2024-02-02 10:35 | P.OP_ITS ---
Operative Note Operative Note Date of Service: 02/02/24 Narrative: Preoperative Diagnosis: Left L5 neural foraminal stenosis. Status post L4-5 instrumented fusion Operation: Left L5 Laminotomy, Partial facetectomy and foraminotomy with use of microscope Consent Informed Consent was obtained for this operation. I have explained the nature, purpose and benefits of the operation. I have discussed the risks and benefit of the operation including possible complications or adverse events with patient/family. Alternative(s) were discussed with the patient with their relative benefits and risks as well as the consequences of not accepting the operation were included in obtaining consent. Surgeon: LUIS SULLIVAN MD, PHD Procedure Assisted By: tiffanie Carroll Description of Procedure This patient had an L4-5 fusion done in another institution. He continues to complain of his severe left leg pain radiating in L5 distribution. An MRI shows severe L5 neuroforaminal stenosis. He was offered a decompression of the L5 nerve root. The procedure complications were explained. The patient was consented. The patient was brought to the operating room and endotracheally intubated. The patient was turned in prone position on the James frame. Prep and drape was done followed by timeout. Physician food and beverage assistant manager provided access. A paramedian incision was made. The muscle fascia was opened and the previous placed L5 screw was identified. Caudally was the L5-S1 facet joint was was exposed. A high-speed drill was used to do a complete L5-S1 facetectomy. The underlying L5 nerve root was identified with a 2. Kerrison the foraminotomy was extended flush to the S1 pedicle and flavum ligament was removed to further decompress the L5 nerve. A A long nerve hook could be easily passed lateral and dorsally from the nerve root, a sign of relief of the neuroforaminal stenosis and decompression of the nerve root . The microscope was removed. Hemostasis was done. Incision was closed in 2 layers. Steri-Strips were used to approximate incision. An OpSite with Tegaderm was used to cover the incision. All sponge needle counts were correct. Patient was extubated and transported in stable is to recovery room. Anesthesia: General Estimated Blood Loss (ml): Minimal Duration of Surgery: Under 60 Minutes Postoperative Plan: Discharge to home
[2024-02-02] MEDS: fentaNYL citrate/PF 100 MCG/2 ML VIAL 25 MCG IVPUSH ×4 (11:02→11:25)
[2024-02-02] MEDS: Labetalol HCL 100 MG/20 ML VIAL 10 MG IVPUSH (11:30)
[2024-02-02] MEDS: oxyCODONE HCl Immed Release 5 MG TABLET PO (11:32)
[2024-02-02] MEDS: Labetalol HCL 100 MG/20 ML VIAL 15 MG IVPUSH (12:03)
== END 2024-02-02 12:47 | disposition home or self-care (01) ==
PROVIDERS: Nurse Practitioner; PCP Family Medicine; Visit Provider Neurological Surgery
PROC: (CPT 63047; principal; 2024-02-02 10:30)
DX: M48.061 Spinal stenosis, lumbar region without neurogenic claudication (principal); Z98.1 Arthrodesis status; I10 Essential (primary) hypertension; F32.A Depression, unspecified; F41.9 Anxiety disorder, unspecified; K21.9 Gastro-esophageal reflux disease without esophagitis; Z96.643 Presence of artificial hip joint, bilateral; Z98.890 Other specified postprocedural states; Z87.891 Personal history of nicotine dependence; Z79.899 Other long term (current) drug therapy
CPT/HCPCS: 63047; 36415; 80048; 85027; 93005; J0131; J0690; J1100; J1920; J2003; J2250; J2405; J2704; J3010

== ENCOUNTER → 2024-02-02 07:44 | Outpatient (BNV) | payer MEDICARE, SELFPAY | PROVIDERS: PCP Family Medicine; Visit Provider Neurological Surgery | DX: M48.061 Spinal stenosis, lumbar region without neurogenic claudication (principal) | CPT/HCPCS: 63047; 99499 ==

== ENCOUNTER 2024-02-23 14:28 | Outpatient (AMB) | payer MEDICARE, SELFPAY ==
--- NOTE | 2024-02-23 14:45 | A.SPINEOV_ITS ---
Intake Visit Reasons: 1st post op Intake Note: Mr. Caruso is here today for his 1st post op visit. Cashiers Supervisor Required: No Allergies Seasonal Allergies Allergy (Severe, Verified 02/23/24 14:46) Sneezing Assessment & Plan Assessment & Plan (1) Lumbar stenosis: Code(s): M48.061 - Spinal stenosis, lumbar region without neurogenic claudication Category: Medical Plan Mr Caruso is here in follow-up. He underwent an left L5 laminotomy and foraminotomy adjacent to his previous L4-5 fusion to help with left leg pain. He did get some relief but still continues to feel numbness in his left calf and left foot. When he is up and moving around he is continuing to feel his chronic back pain. If he is not doing much, the pain really isn't all that bad. He has good days and bad days but obviously he has to function and get out of the house and do tasks around his yd that do lead to him having discomfort. He can take ibuprofen and Tylenol but these things generally do not help much. On my exam today, he is still walking with an antalgic gait, uses a cane. His wound is healed up beautifully. We discussed activity guidelines, restrictions and expectations after L5 foraminotomy. I would like to see him back in 6 weeks for final follow-up. With regard to his pain medication, he does not really feel like he needs narcotics, but he was on a buprenorphine patch preoperatively that was giving him fairly decent control the chronic pains that he has. There is a good chance that he is going to continue to have chronic pain in his back just because of the history of lumbar fusion and it might be reasonable to keep him on this as it was helping quite a bit before surgery.. I told him that it would be up to his PCP Dr. Dye who has been prescribing this long-term for him as a chronic pain medication, as Dr. Anand only prescribes very brief period of narcotics right after surgery and that window was closed. Darinel Anand MD, PhD [facility] Coding Level of Care Code Global (34549) Diagnoses Lumbar stenosis M48.061
== END 2024-02-23 15:15 | disposition home or self-care (01) ==
PROVIDERS: PCP Family Medicine; Visit Provider Physician Assistant
DX: M48.061 Spinal stenosis, lumbar region without neurogenic claudication (principal)
CPT/HCPCS: 99024

== ENCOUNTER → 2024-02-23 14:28 | Outpatient (BNVA) | payer MEDICARE, SELFPAY | PROVIDERS: PCP Family Medicine; Visit Provider Physician Assistant | DX: M48.061 Spinal stenosis, lumbar region without neurogenic claudication (principal) | CPT/HCPCS: 99212 ==

== ENCOUNTER 2024-03-05 11:50 | Outpatient (AMB) | payer MEDICARE, SELFPAY ==
--- NOTE | 2024-03-05 12:10 | MHC.PC.OV ---
Vital Signs 03/05/24 12:13 Height 5 ft 10 in Weight 187 lb BMI 26.8 BP 140/60 H Blood Pressure Location Lt brachial Position Sitting Respiration 16 Pulse 62 Pulse Source Pulse Oximeter Pulse Oximetry (%) 98 Oxygen Delivery Method Room Air Intake Visit Reasons: post op/medication Intake Note: Back surgery post op Allergies Seasonal Allergies Allergy (Severe, Verified 03/05/24 12:11) Sneezing Tobacco use date assessed: 07/26/23 Dental Screening Dental Screen Date: 04/26/23 HPI post op/medication HPI Details 54 y/o male presents to f/y s/p L L5 laminotomy and foraminotomy adjacent to previous L4-5 fusion to help with leg pain. He notes surgery has helped some but reports ongoing pain. Reports ongoing foot numbness/tingling and swelling. HPI Comments History of Present Illness Details Documentation assistance for Jose E Dye MD, was provided by Lobo Hunt,? Cable Assembler And Swager on 03/05/2024 at 12:39 PM EST. I, Dr. Dye, have read, observed, and verified documentation. ?? [facility] Medical History Chronic pain syndrome Disc degeneration, lumbar Mild anemia Osteoarthritis GERD (gastroesophageal reflux disease) Depression with anxiety Claustrophobia HTN (hypertension) Arthritis Surgical History History of esophagogastroduodenoscopy (EGD) Hx of colonoscopy History of hip replacement H/O knee surgery History of spinal fusion Family History Father No problems noted. Mother No problems noted. Social History Household Members: Family Housing: House Are you a primary rn care manager to a significant other at home: No Do you presently have visiting nurse or other home services: No Alcohol intake: never Patient Tobacco Use Status: Former Tobacco user Tobacco use type: Cigarette Cigarette Packs Per Day: 1 Cigarettes Per Day: 5 Years Smoked: 30 e-Cigarette/Vaping Use: Never Used Second Hand Smoke Exposure: No Substance Use Type: Marijuana service: No Current occupational status: disabled Current occupation: rt hand Current occupational exposures/hazards: No Cognitive needs: No Hearing needs: No Vision needs: No Questionnaire Thrive Questionnaire Date Thrive assessed: 01/04/24 I am a: Patient What is your living situation today?: I have a steady place to live Within the past 12 months, did the food you bought not last and you didn't have the money to get more?: Often true Within the past 12 months, did you worry whether your food would run out before you got money to buy more?: Often true Do you have trouble paying for medicines?: Yes Do you have trouble getting transportation to medical appointments?: No Do you have trouble paying your heating and electricity bill?: Yes Do you have trouble taking care of your child, family member or friend?: No Do you have trouble with day-to-day activities such as bathing, preparing meals, shopping, managing finances, etc.?: Yes Are you currently unemployed and looking for a job?: No Are you interested in more education?: No Currently or been in a relationship where the following occur: No concerns reported THRIVE Score: 3 AUDIT C Alcohol Use Questionnaire (AUDIT-C) 3. How often do you have six or more drinks on one occasion?: Never Total Score: 0 GISSEL-7 AMB Questionnaire GISSEL-7 Date GISESL - 7 assessed: 04/26/23 Source: Developed by Drs. Mika Nguyen, Valorie Chen, Ramírez House and colleagues, with an educational jonas from [employer]. Physical exam (Primary Care) Vital Signs: Last Vital Signs Pulse 62 03/05/24 12:13 Resp 16 03/05/24 12:13 BP 140/60 H 03/05/24 12:13 Pulse Ox 98 03/05/24 12:13 Oxygen Delivery Method Room Air 03/05/24 12:13 BMI result Body Mass Index 26.8 Tobacco/Smoking Status: Tobacco use Status Tobacco use date assessed 07/26/23 03/05/24 12:16 Patient Tobacco Use Status Former Tobacco user 03/05/24 12:16 Tobacco use type Cigarette 03/05/24 12:16 e-Cigarette/Vaping Use Never Used 03/05/24 12:16 Thrive Assessment: Date of Thrive Assessment Date Thrive assessed 01/04/24 03/05/24 12:16 Currently or been in a relationship where the following occur: No concerns reported Coding Level of Care Code Est Pt Level 4 (61153) Diagnoses Lumbar stenosis M48.061 Chronic pain syndrome G89.4 Hypertension I10 Leg edema, left R60.0 Assessment & Plan Assessment & Plan (1) Lumbar stenosis: Code(s): M48.061 - Spinal stenosis, lumbar region without neurogenic claudication Category: Medical Plan: Now?s/p?surgery Patient?is?still?having?back?pain?and?having?difficulty?sleeping?due?to?this Will?continue?his?buprenorphine?and?increase?to?20?mcg?daily. We?discussed?that?I?also?want?him?to?use?ibuprofen?and?Tylenol?and?he?agrees Follow-up?with?Neurosurgery?as?recommended (2) Chronic pain syndrome: Code(s): G89.4 - Chronic pain syndrome Category: Medical Plan: As?above (3) Hypertension: Code(s): I10 - Essential (primary) hypertension Category: Medical Plan: Blood?pressure?is?improving?on?losartan?but?still?above?goal?of?less?than?140/90 Increase?losartan?from?25?mg?daily?to?50?mg?daily (4) Leg edema, left: Code(s): R60.0 - Localized edema Category: Medical Plan: Left?leg?edema?and?I?suspect?this?is?neurogenic?in?cause However,?patient?would?like?a?referral?to?vascular?surgery-referred Advised?he?elevate?leg.??I?will?give?him?a?short?course?of?furosemide?as?well. Orders: Referrals Vascular Surgery Referral R60.0 - Localized edema Medications: New furosemide 10 mg (1/2 x 20 mg) PO QAM 5 days 3 tabs 0RF Changed From pramipexole 0.125 mg PO BEDTIME 90 days 90 tabs 0RF To pramipexole 0.25 mg PO BEDTIME 90 days 90 tabs 1RF From buprenorphine 15 mcg/hour MassPat verified. Partial refill upon request. 1 patch transdermal QWEEK 28 days 4 ea 0RF pain control for sleep To buprenorphine 20 mcg/hour MassPat verified. Partial refill upon request. 1 patch transdermal QWEEK 28 days 4 ea 0RF pain control for sleep From losartan 25 mg PO QAM To losartan 50 mg PO QAM 90 days 90 tabs 2RF
[2024-03-05 12:13] VITALS: BP 140/60; PULSE 62; RESP 16; O2SAT 98; BMI 26.8
== END 2024-03-05 12:37 | disposition home or self-care (01) ==
PROVIDERS: PCP Family Medicine; Visit Provider Family Medicine
DX: M48.061 Spinal stenosis, lumbar region without neurogenic claudication (principal); G89.4 Chronic pain syndrome; I10 Essential (primary) hypertension; R60.0 Localized edema

== ENCOUNTER → 2024-03-05 11:50 | Outpatient (BNVA) | payer MEDICARE, SELFPAY | PROVIDERS: PCP Family Medicine; Visit Provider Family Medicine | DX: M48.061 Spinal stenosis, lumbar region without neurogenic claudication (principal); G89.4 Chronic pain syndrome; I10 Essential (primary) hypertension; R60.0 Localized edema; Z51.81 Encounter for therapeutic drug level monitoring; Z98.890 Other specified postprocedural states; Z79.899 Other long term (current) drug therapy | CPT/HCPCS: 99212 ==

== ENCOUNTER 2024-03-27 08:42 | Outpatient (AMB) | payer MEDICARE, SELFPAY ==
--- NOTE | 2024-03-27 09:00 | MHC.OFFVIS ---
Intake Visit Reasons: HUMAN RESOURCES OFFICE ASSISTANT/Marnie ref for LE swelling Intake Note: New Patient presents for lower extremity pain. Patient had back surgery in January and stated his pain went away 90 percent but my leg still hurts. He has numbness and swelling in the left leg from the knee down to his feet. Bilateral leg cramping. Accompanied by: Self / Same As Patient Allergies Seasonal Allergies Allergy (Severe, Verified 03/27/24 09:03) Sneezing HPI HPI HUMAN RESOURCES OFFICE ASSISTANT/Marnie ref for LE swelling: Details: Alejandro, a pleasant 54-year-old male patient, is presenting today on a referral from his PCP for bilateral lower extremity swelling, left more than right, occurring over the last 5-6 years, worsening. Complaints include swelling of lower extremities, cramping, fatigue, and heaviness of the lower extremities. It has been affecting their daily activities including walking, standing, and physical activity. It is noted more so in left leg. He is a former smoker and is not a diabetic. He is status post lumbar foraminotomy in January, which he thought would help his swelling of his lower extremities, but has not. He did trial 5 days of Lasix but did not notice any difference. He does also endorse numbness and tingling in his feet bilaterally all of the time. He does endorse that in the cold weather his hands and feet both turn white and he needs to run them under hot water to get them warmer, despite wearing gloves and warm socks. Patient denies any previous venous surgery or injections. Patient denies any history of DVT/ PE. Patient denies any history of phlebitis. Trial of compression includes - elevation, particularly at night, he sleeps in a recliner They now present for vascular evaluation regarding their varicose veins. FORMERLY [facility], [facility] Medical History Chronic pain syndrome Disc degeneration, lumbar Mild anemia Osteoarthritis GERD (gastroesophageal reflux disease) Depression with anxiety Claustrophobia HTN (hypertension) Arthritis Surgical History History of esophagogastroduodenoscopy (EGD) Hx of colonoscopy History of hip replacement H/O knee surgery History of spinal fusion Family History Father No problems noted. Mother No problems noted. Social History Household Members: Family Housing: House Are you a primary healthcare administration internship to a significant other at home: No Do you presently have visiting nurse or other home services: No Alcohol intake: never Patient Tobacco Use Status: Former Tobacco user Tobacco use type: Cigarette Cigarette Packs Per Day: 1 Cigarettes Per Day: 5 Years Smoked: 30 e-Cigarette/Vaping Use: Never Used Second Hand Smoke Exposure: No Substance Use Type: Marijuana service: No Current occupational status: disabled Current occupation: rt hand Current occupational exposures/hazards: No Cognitive needs: No Hearing needs: No Vision needs: No Review of Systems Const Reports as per HPI and Denies weakness ENT Reports Normal hearing present and Denies dizziness Card Reports as per HPI, Denies chest pain, Denies chest pain at rest, Denies chest pain with activity, Denies dyspnea and Denies dyspnea on exertion Resp Reports as per HPI, Denies cough, Denies dyspnea and Denies dyspnea on exertion GI Reports as per HPI, Denies abdominal pain, Denies nausea and Denies vomiting Musc Denies numbness Skin/Breast Reports as per HPI, Denies erythema and Denies wounds Neuro Reports Normal hearing present, Denies dizziness, Denies numbness, Denies Sensory deficit (Neuro) and Denies weakness Psych Reports no additional complaints Endo Reports no additional complaints Physical Exam Const General: healthy appearing and no acute distress Orientation/consciousness: patient oriented x3 HEENT Head: Yes normal to inspection Ears: hearing grossly normal bilaterally Mouth: Normal oral and palatal mucosa present Resp Effort & Inspection: normal respiratory effort and able to speak in complete sentences Auscultation: clear to auscultation bilaterally Cardio Jugular venous distension: no JVD Rate: regular rate Rhythm: regular rhythm Heart sounds: S1 normal heart sound present and S2 normal heart sound present Bruits: no abdominal aortic bruits, no carotid bruits, no femoral bruits and no renal bruits Peripheral pulses: Peripheral pulses 2+ throughout GI Inspection: Yes normal to inspection Palpation (GI): No Abdominal aortic bruit present Skin General skin exam: no rashes or lesions noted Wounds: no wounds Hair: normal Neuro General: patient oriented x3 Cranial nerves: Yes Normal hearing present Cognition (Neuro): normal cognition Gait exam (Neuro): Normal gait present Motor exam (neuro): 5/5 motor strength present throughout Sensory Exam: No Sensory deficit (Neuro) Extrem Other: Bilateral lower extremities: Discoloration noted from mid alcaraz down to the toes. Feet appear cool to the touch. Palpable DP and PT pulses. Trace peripheral edema noted CEAP: C - 4 E - primary A - superficial P - reflux General: Yes normal to inspection, Yes full ROM, Yes capillary refill normal and Yes normal gait Assessment & Plan Assessment & Plan (1) Varicose veins of both lower extremities with inflammation: Code(s): I83.11 - Varicose veins of right lower extremity with inflammation; I83.12 - Varicose veins of left lower extremity with inflammation Category: Medical Plan: Alejandro is presenting today on a referral from his PCP for ongoing bilateral lower extremity swelling. In short, the patient has evidence of venous insufficiency. I have discussed the pathophysiology with the patient. In addition I have provided informational material regarding venous disease to the patient. We have discussed conservative measures including compression, elevation, and exercise. We discussed that in bed can put pillows under his feet to help with elevation at night. We discussed the importance of keeping his feet and hands warm during these cold days. I have taken the liberty of ordering venous insufficiency testing with the patient. They will follow up with me after testing. The patient had an opportunity to ask questions regarding the treatment plan. All questions were answered. Imaging studies, laboratory studies and physical exam results were discussed and reviewed in detail. No major barriers to understanding were identified. The patient expressed understanding and agreement with the above treatment plan. The patient is aware they should contact our office by phone for worsening of the current condition or the appearance of new symptoms. Thank you for allowing me to participate in the vascular care of this patient. If you have any questions or concerns regarding the treatment for the above condition please do not hesitate to contact me. The office telephone contact is [phone]. This note is constructed using voice recognition software. While every effort has been made to ensure accuracy, chlorine plant operator errors may have been included. Thank you for allowing me to participate in the care of your patient. Yours sincerely, MARIANNE Tracey Orders: Orders US venous duplex LE BI 1 Week I83.11 - Varicose veins of right lower extremity with inflammation, I83.12 - Varicose veins of left lower extremity with inflammation Coding Level of Care Code New Pt Level 4 (02997) Diagnoses Varicose veins of both lower extremities with inflammation I83.11; I83.12
== END 2024-03-27 09:54 | disposition home or self-care (01) ==
PROVIDERS: PCP Family Medicine; Visit Provider Physician Assistant Surgical
DX: I83.11 Varicose veins of right lower extremity with inflammation (principal); I83.12 Varicose veins of left lower extremity with inflammation
CPT/HCPCS: 99204

== ENCOUNTER → 2024-03-27 08:42 | Outpatient (BNVA) | payer MEDICARE, SELFPAY | PROVIDERS: PCP Family Medicine; Visit Provider Physician Assistant Surgical | DX: I83.11 Varicose veins of right lower extremity with inflammation (principal); I83.12 Varicose veins of left lower extremity with inflammation | CPT/HCPCS: 99202 ==

== ENCOUNTER 2024-04-05 13:45 | Outpatient (AMB) | payer MEDICARE, SELFPAY ==
--- NOTE | 2024-04-05 13:55 | HO.SPINEOV ---
Intake Visit Reasons: 2nd post op Intake Note: Mr. Caruso is here today for his 2nd post op appointment. Hairspring Inspector Required: No Allergies Seasonal Allergies Allergy (Severe, Verified 04/05/24 13:55) Sneezing Assessment & Plan Assessment & Plan (1) Lumbar stenosis: Code(s): M48.061 - Spinal stenosis, lumbar region without neurogenic claudication Category: Medical Plan Mr Caruso is about 90% improved with the left leg pain. He is still dealing with other chronic pain situations. Unfortunately recently something changed with the Suboxone patches and he is now unable to afford them. Unfortunately this makes his overall quality of life and daily living much worse. Things seemed to have worked out fairly well with the surgery however, and he is glad he underwent the operation. We discussed activity guidelines, restrictions expectations after lumbar foraminotomy. We will see him back down the road if something changes. Darinel Anand MD, PhD [facility] Coding Level of Care Code Global (78683) Diagnoses Lumbar stenosis M48.061
== END 2024-04-05 14:17 | disposition home or self-care (01) ==
PROVIDERS: PCP Family Medicine; Visit Provider Physician Assistant
DX: M48.061 Spinal stenosis, lumbar region without neurogenic claudication (principal)
CPT/HCPCS: 99024

== ENCOUNTER → 2024-04-05 13:45 | Outpatient (BNVA) | payer MEDICARE, SELFPAY | PROVIDERS: PCP Family Medicine; Visit Provider Physician Assistant | DX: M48.061 Spinal stenosis, lumbar region without neurogenic claudication (principal); Z09 Encounter for follow-up examination after completed treatment for conditions other than malignant neoplasm; Z98.890 Other specified postprocedural states | CPT/HCPCS: 99212 ==

== ENCOUNTER 2024-05-08 11:31 | Outpatient (AMB) | payer MEDICARE, SELFPAY ==
--- NOTE | 2024-05-08 11:46 | A.OFFPC_ITS ---
Vital Signs 05/08/24 11:48 Height 5 ft 10 in Weight 174 lb 2 oz BMI 25.0 BP 138/60 Blood Pressure Location Lt brachial Position Sitting Respiration 14 Pulse 61 Pulse Source Pulse Oximeter Temp 97.8 F Temp Source Oral Pulse Oximetry (%) 98 Oxygen Delivery Method Room Air Intake Visit Reasons: f/u chronic conditions Intake Note: f/u chronic pain med refill for pain patches Allergies Seasonal Allergies Allergy (Severe, Verified 05/08/24 11:46) Sneezing Medication List - Last Reconciled 05/08/24 by oJse E Dye MD buprenorphine 20 mcg/hour 1 patch transdermal QWEEK 28 days clonazepam 1 mg PO Q8H 30 days losartan 50 mg PO QAM 90 days omeprazole 20 mg PO QAM pramipexole 0.25 mg PO BEDTIME 90 days prednisone 40 mg (2 x 20 mg) PO DAILY 5 days Tobacco use date assessed: 07/26/23 Dental Screening Dental Screen Date: 04/26/23 HPI f/u chronic conditions HPI Details 54 y/o male presents to f/u chronic cond itions. Reports ongoing chronic pain in the pain scale of 7-8. Notes pregabalin, celebrex does not do anything for the pain. [facility] Medical History Chronic pain syndrome Disc degeneration, lumbar Mild anemia Osteoarthritis GERD (gastroesophageal reflux disease) Depression with anxiety Claustrophobia HTN (hypertension) Arthritis Surgical History History of esophagogastroduodenoscopy (EGD) Hx of colonoscopy History of hip replacement H/O knee surgery History of spinal fusion Family History Father No problems noted. Mother No problems noted. Social History Household Members: Family Housing: House Are you a primary career resource technician to a significant other at home: No Do you presently have visiting nurse or other home services: No Alcohol intake: never Patient Tobacco Use Status: Former Tobacco user Tobacco use type: Cigarette Cigarette Packs Per Day: 1 Cigarettes Per Day: 5 Years Smoked: 30 e-Cigarette/Vaping Use: Never Used Second Hand Smoke Exposure: No Substance Use Type: Marijuana service: No Current occupational status: disabled Current occupation: rt hand Current occupational exposures/hazards: No Cognitive needs: No Hearing needs: No Vision needs: No Questionnaire PHQ-9 Over the last 2 weeks, how often have you been bothered by any of the following problems? 1. Little interest or pleasure in doing things: nearly every day 2. Feeling down, depressed, or hopeless: nearly every day 3. Trouble falling or staying asleep, or sleeping too much: nearly every day 4. Feeling tired or having little energy: nearly every day 5. Poor appetite or overeating: not at all 6. Feeling bad about yourself - or that you are a failure or have let yourself or your family down: not at all 7. Trouble concentrating on things, such as reading the newspaper or watching television: not at all 8. Moving or speaking so slowly that other people could have noticed. Or the opposite - being so fidgety or restless that you have been moving around a lot more than usual: not at all 9. Thoughts that you would be better off or of hurting yourself in some way: not at all Total score: 12 Source: Developed by Drs. Mika Nguyen, Valorie Chen, [facility] [employer] and colleagues, with an educational jonas from [employer]. Thrive Questionnaire Date Thrive assessed: 05/02/24 I am a: Parent/Caregiver What is your living situation today?: I have a place to live, but I am worried about losing it in the future Within the past 12 months, did the food you bought not last and you didn't have the money to get more?: Sometimes True Within the past 12 months, did you worry whether your food would run out before you got money to buy more?: Sometimes True Do you have trouble paying for medicines?: Yes Do you have trouble getting transportation to medical appointments?: No Do you have trouble paying your heating and electricity bill?: Yes Do you have trouble taking care of your child, family member or friend?: No Do you have trouble with day-to-day activities such as bathing, preparing meals, shopping, managing finances, etc.?: Yes Are you currently unemployed and looking for a job?: I choose not to answer this question Are you interested in more education?: No Please select the resources that you would like help with: Food, Paying for medicine and Utilities Currently or been in a relationship where the following occur: No concerns reported THRIVE Score: 4 AUDIT C Alcohol Use Questionnaire (AUDIT-C) 1. How often do you have a drink containing alcohol?: Never 3. How often do you have six or more drinks on one occasion?: Never Total Score: 0 GISSEL-7 AMB Questionnaire GISSEL-7 Date GISSEL - 7 assessed: 04/26/23 Feeling nervous, anxious, or on edge: 3 = Nearly every day Not being able to stop or control worryin = Nearly every day Worrying too much about different things: 3 = Nearly every day Trouble relaxin = Nearly every day Being so restless that it is hard to sit still: 3 = Nearly every day Becoming easily annoyed or irritable: 3 = Nearly every day Feeling afraid as if something awful might happen: 0 = Not at all Total GISSEL-7 score (0-4 normal; 5-9 mild; 10-14 moderate; 15-21 severe): 18 Source: Developed by Drs. Mika Nguyen, Valorie Chen, [facility] and colleagues, with an educational jonas from [employer]. Review of Systems Const Denies chills, Denies fatigue, Denies fever(s), Denies headache(s) and Denies we akness ENT Denies dizziness and Denies headache(s) Card Denies chest pain, Denies lightheadedness, Denies dyspnea and Denies other (Palpitations) Resp Denies cough, Denies dyspnea, Denies wheezing and Denies other ( shortness of breath) Musc Denies numbness and Denies tingling Neuro Denies dizziness, Denies headache(s), Denies numbness, Denies tingling, Denies paresthesias and Denies weakness Psych Denies anxiety and Denies depression Endo Denies fatigue Aller/Immun Denies wheezing Physical exam (Primary Care) Vital Signs: Last Vital Signs Temp 97.8 F 05/08/24 11:48 Pulse 61 05/08/24 11:48 Resp 14 05/08/24 11:48 BP 138/60 05/08/24 11:48 Pulse Ox 98 05/08/24 11:48 Oxygen Delivery Method Room Air 05/08/24 11:48 BMI result Body Mass Index 25.0 Tobacco/Smoking Status: Tobacco use Status Tobacco use date assessed 07/26/23 05/08/24 11:46 Patient Tobacco Use Status Former Tobacco user 05/08/24 11:46 Tobacco use type Cigarette 05/08/24 11:46 e-Cigarette/Vaping Use Never Used 05/08/24 11:46 PHQ-9: PHQ-9 Score PHQ-9: Total score 12 05/08/24 12:10 Thrive Assessment: Date of Thrive Assessment Date Thrive assessed 05/02/24 05/08/24 11:46 Currently or been in a relationship where the following occur: No concerns reported Const General: no acute distress and well developed Nutritional Appearance: well nourished Orientation/consciousness: patient oriented x3 HENMT Head: Yes normocephalic and Yes atraumatic Eyes General: appearance normal, both eyes and all related structures Pupils: Equal, round and reactive pupils present EOM: EOMs intact bilaterally Resp Effort & Inspection: normal respiratory effort Auscultation: clear to auscultation bilaterally Cardio Rate: regular rate Rhythm: regular rhythm Heart sounds: S1 normal heart sound present, S2 normal heart sound present, no gallops, no murmurs and no rubs Neuro General: patient oriented x3 and gait normal Cranial nerves: Yes Equal, round and reactive pupils present Psych Affect: normal affect Coding Level of Care Code Est Pt Level 4 (78496) Diagnoses Chronic pain syndrome G89.4 Chronic low back pain M54.50; G89.29 Lower extremity edema R60.0 Assessment & Plan Assessment & Plan (1) Chronic pain syndrome: Code(s): G89.4 - Chronic pain syndrome Category: Medical Plan: Ongoing?chronic?back?pain. Leg?pain?is?much?improved?with?interventions?from?Neuro/Spine. Alexandra ent?had?difficulty?getting?his?buprenorphine?approved?but?this?has?now?gone?thro ugh.??He?can?pick?this?up?today?so?there?is?no?interruption?medication. He?notes?a?flare-up?back?pain?currently.??He?is? taking?buprenorphine?as?well?some?Tylenol?and?ibuprofen?regularly. Tried?pregabalin?which?did?not?help.??Has?tried?other?NSAIDs?which?have?helped. He?has?used?prednisone?with?good?success.??We?again?h ad?a?discussion?that?we?want?to?try?to?keep?prednisone?use?to?a?minimum.??I?will ?give?5?day?course?today. (2) Chronic low back pain: Code(s): M54.50 - Low back pain, unspecified; G89.29 - Other chronic pain Category: Medical Plan: As?above (3) Lower extremity edema: Code(s): R60.0 - Localized edema Category: Medical Plan: As?above He?will?follow-up?with?vascular?after?his?ultrasound Had?given?him?a?short?course?diuretic.??He?is?not?sure?this?helped?much.??He?connor l?elevate?his?leg,?avoid?salt/sodium?in?can?use?compression?stockings. Medications: New prednisone 40 mg (2 x 20 mg) PO DAILY 5 days 10 tabs 0RF Discontinued pregabalin Discontinued Reason: Doctor's Order 75 mg PO BEDTIME 30 days 30 caps 0RF
[2024-05-08 11:48] VITALS: BP 138/60; PULSE 61; RESP 14; TEMP 36.6; O2SAT 98; BMI 25.0
== END 2024-05-08 12:39 | disposition home or self-care (01) ==
PROVIDERS: PCP Family Medicine; Visit Provider Family Medicine
DX: G89.4 Chronic pain syndrome (principal); M54.50 Low back pain, unspecified; G89.29 Other chronic pain; R60.0 Localized edema

== ENCOUNTER → 2024-05-08 11:31 | Outpatient (BNVA) | payer MEDICARE, SELFPAY | PROVIDERS: PCP Family Medicine; Visit Provider Family Medicine | DX: M54.50 Low back pain, unspecified (principal); G89.29 Other chronic pain; R60.0 Localized edema | CPT/HCPCS: 99212 ==

== ENCOUNTER 2024-05-22 07:10 | Day surgery (SDC) | payer MEDICARE, SELFPAY ==
[2024-05-18 13:38] VITALS: BMI 25.0
--- NOTE | 2024-05-21 13:08 | P.CONAN_ITS ---
Documented by User: Elizabeth Loaiza NP 05/21/24 13:10 HPI - Anesthesia Eval Consult details Narrative: 54yo M for Colonoscopy s/p L5 Foraminotomy, 02/02/24, GA-ETT 7 Buprenorphine patch 20mcg PMFSH Active Problems Active Problems: All Active Problems Varicose veins of both lower extremities with inflammation (Acute) Lower extremity edema (Acute) Leg edema, left (Acute) Lumbar stenosis (Acute) Claustrophobia (Acute) Chronic low back pain (Acute) Hemorrhoids (Acute) Depression with anxiety (Acute) History of colon polyps (Acute) Abscess (Acute) GERD (gastroesophageal reflux disease) (Acute) Abnormal lung sounds (Acute) Osteoarthritis of left knee (Acute) Osteoarthritis of right knee (Acute) Chronic, continuous use of opioids (Acute) Screening for prostate cancer (Acute) Screening for colon cancer (Acute) Adult general medical exam (Acute) Low HDL (under 40) (Acute) Hypertriglyceridemia (Acute) Mild anemia (Chronic) Elevated fasting glucose (Acute) Radiculopathy, lumbar region (Acute) Disc degeneration, lumbar (Acute) Abnormal chest x-ray (Acute) Rib pain on right side (Acute) Chronic pain syndrome (Acute) Postlaminectomy syndrome (Acute) Low back pain (Acute) Smoker (Acute) Anxiety (Acute) Knee pain (Acute) Back pain (Acute) Hip pain (Acute) Hypertension (Acute) Laboratory exam ordered as part of routine general medical examination (Acute) Left arm pain (Acute) Folliculitis (Acute) Tricompartment osteoarthritis of right knee (Acute) Chronic dermatitis of hands (Acute) Past Medical History Medical History Chronic pain syndrome Disc degeneration, lumbar Mild anemia Osteoarthritis GERD (gastroesophageal reflux disease) Depression with anxiety Claustrophobia HTN (hypertension) Arthritis Family History Family History Father No problems noted. Mother No problems noted. Family history of problems with anesthesia: No Surgical History Surgical History History of esophagogastroduodenoscopy (EGD) Hx of colonoscopy History of hip replacement H/O knee surgery History of spinal fusion History of Problems with Anesthesia: No Social History Social History Household Members: Family Housing: House Are you a primary career guidance technician to a significant other at home: No Do you presently have visiting nurse or other home services: No Alcohol intake: never Patient Tobacco Use Status: Former Tobacco user Tobacco use type: Cigarette Cigarette Packs Per Day: 1 Cigarettes Per Day: 5 Years Smoked: 30 e-Cigarette/Vaping Use: Never Used Second Hand Smoke Exposure: No Substance Use Type: Marijuana Have you been hit, kicked, punched, or otherwise hurt by someone within the past year? If so, by whom?: No Are you DNR?: No Advance Directives: No Advance Directives Information Provided: Yes Recently lost weight without trying: No Nutrition Risks: No Nutritional Risk service: No Current occupational status: disabled Current occupation: rt hand Current occupational exposures/hazards: No Cognitive needs: No Hearing needs: No Vision needs: No Meds Allergies Allergy/AdvReac Type Severity Reaction Status Date / Time Seasonal Allergies Allergy Severe Sneezing Verified 05/22/24 07:56 Home Medications ?Medication ?Instructions ?Recorded ?Confirmed ?Last Taken ?Type omeprazole 20 mg capsule,delayed 20 mg PO QAM 01/16/24 05/22/24 05/22/24 History release Exam Height,Weight and Vital Signs: Height 5 ft 10 in Weight 78.925 kg Pertinent Lab Results Pertinent Lab Results: Lab Results 01/16/24 Range/Units 11:30 WBC 8.4 (4.8-10.8) X10*3/uL RBC 3.77 L (4.60-5.80) X10*6/uL Hgb 11.6 L (14.0-18.0) g/dl Hct 34.9 L (42.0-52.0) % MCV 92.6 (80.0-98.0) fL MCH 30.8 (27.0-33.0) pg MCHC 33.2 (31.0-36.0) g/dl RDW 14.0 (11.0-16.0) % Plt Count 219 (160-400) X10*3/uL MPV 10.4 (9.4-12.4) fL Absolute Nucleated RBC 0.000 (0.0-0.012) X10*3/uL Nucleated RBC % (auto) 0.0 (0.0-0.2) /100WBC Sodium 134 L (135-145) mmol/L Potassium 4.2 (3.3-5.1) mmol/L Chloride 101 (96-108) mmol/L Carbon Dioxide 27 (22-29) mmol/L Anion Gap 10 L (12-20) BUN 12 (9-16) mg/dL Creatinine 0.76 (0.5-1.4) mg/dL Estim Creat Clear Calc 113.3 Estimated GFR > 60 Random Glucose 89 (60-115) mg/dL Calcium 9.3 (8.4-10.2) mg/dL Narrative Narrative: EKG 12/2023 Vent. Rate : 057 BPM Atrial Rate : 057 BPM P-R Int : 168 ms QRS Dur : 092 ms QT Int : 424 ms P-R-T Axes : 052 054 071 degrees QTc Int : 412 ms Sinus bradycardia Otherwise normal ECG When compared with ECG of 22-JUL-2020 16:28, Nonspecific T wave abnormality no longer evident in Anterior leads Assessment and Plan Assessment Anesthesia Assessment: Chart Reviewed Final Anesthetic Review Family History of Problems with Anesthesia: No History of Problems with Anesthesia: No Documented by User: Griffin Aquino MD 05/22/24 08:31 [facility] Past Medical History Medical History Chronic pain syndrome Disc degeneration, lumbar Mild anemia Osteoarthritis GERD (gastroesophageal reflux disease) Depression with anxiety Claustrophobia HTN (hypertension) Arthritis Family History Family History Father No problems noted. Mother No problems noted. Surgical History Surgical History History of esophagogastroduodenoscopy (EGD) Hx of colonoscopy History of hip replacement H/O knee surgery History of spinal fusion Social History Social History Household Members: Family Housing: House Are you a primary career guidance technician to a significant other at home: No Do you presently have visiting nurse or other home services: No Alcohol intake: never Patient Tobacco Use Status: Former Tobacco user Tobacco use type: Cigarette Cigarette Packs Per Day: 1 Cigarettes Per Day: 5 Years Smoked: 30 e-Cigarette/Vaping Use: Never Used Second Hand Smoke Exposure: No Substance Use Type: Marijuana Have you been hit, kicked, punched, or otherwise hurt by someone within the past year? If so, by whom?: No Are you DNR?: No Advance Directives: No Advance Directives Information Provided: Yes Recently lost weight without trying: No Nutrition Risks: No Nutritional Risk service: No Current occupational status: disabled Current occupation: rt hand Current occupational exposures/hazards: No Cognitive needs: No Hearing needs: No Vision needs: No Meds Allergies Allergy/AdvReac Type Severity Reaction Status Date / Time Seasonal Allergies Allergy Severe Sneezing Verified 05/22/24 07:56 Home Medications ?Medication ?Instructions ?Recorded ?Confirmed ?Last Taken ?Type omeprazole 20 mg capsule,delayed 20 mg PO QAM 01/16/24 05/22/24 05/22/24 History release Exam Airway Mallampati Class: II TM Dist: >3cm Neck ROM: Full Loose/Missing/Broken Teeth: Yes Assessment and Plan Assessment Anesthesia Assessment: Anesthesia Plan Discussed Final Anesthetic Review NPO: Yes ASA Class: II Final Preanesthetic Review: No Changes in Pt Med Stat, Meds/Allgs Chart Reviewed, Consent Obtained/Reviewed and Anes Risks/Benef Reviewed Patient Risk: Intermediate Procedure Risk: Low Anesthetic Plan Anesthetic Plan: MAC: Disposition: Standard PACU
[2024-05-22 07:40] VITALS: BMI 24.3
--- NOTE | 2024-05-22 07:43 | P.OPN-COLO_ITS ---
Colonoscopy Operative Note Operative Note Date of Service: 05/22/24 Narrative: Procedure: Colonoscopy Indication: Personal history of polyps Endoscopist: Rand Scott MD Anesthesia Provider: Griffin Aquino MD Anesthesia type: MAC Instrument: Olympus [id number]-H190L Consent: Indication, risks vs benefits, and alternatives were discussed with the patient who gave written informed consent to proceed. EKG, pulse, pulse oximetry and blood pressure were monitored throughout the procedure. Please see anesthesia flowsheet. Procedure: The patient was brought to the procedure room and placed in the left lateral decubitus position. IV medications were administered by the anesthesia provider in attendance. A digital rectal exam was performed which was normal. A distal attachment cap was affixed to the tip of the colonoscope which was then inserted through the anus and advanced through the colon to the cecum at 80 cm,and terminal ileum. Appendiceal orifice and ileocecal valve were identified. Mucosa was carefully examined under high definition white light as the instrument was slowly withdrawn in a retrograde panoramic fashion. Retroflexion was performed in rectum. The procedure was not difficult. There were no immediate obvious complications. The quality of the prep was BBPS: 2+3+2 = adequate Withdrawal time 17 minutes. Limitations: No limitations. Findings: Mucosa: Normal to cecum and terminal ileum. Protruding lesions: * 1 sessile polyps of size 3 mm in descending colon. Cold snare polypectomy was performed. The polyp was completely removed and retrieved. * 1 sessile polyp of size 2 mm in sigmoid colon. Cold snare polypectomy was performed. The polyp was completely removed and retrieved. * Medium internal hemorrhoids without stigmata of recent bleeding. Excavated lesions: * Mild diverticulosis of left sided colon. Impression: 1. Normal colon mucosa 2. Total of 2 polyps removed 3. Diverticulosis 4. Internal hemorrhoids Recommendations: - Follow path results. - Repeat colonoscopy in 5 years due to quality of prep
--- NOTE | 2024-05-22 07:43 | MHC.SHP ---
Pre-Procedural Eval Section A - 24 Hr Update-Section A only Date of Service: 05/22/24 Section B - Complete if H&P > 30 days Chief Complaint: Personal history of colonic polyps Details of Present Illness: Had poor prep 05/2023 so here for repeat exam. PMH: History of colon polyps Arthritis BP (high blood pressure) Surgical History Hx of colonoscopy History of hip replacement H/O knee surgery History of spinal fusion Present Medications: see Short Stay Collaborative assessment Allergies: Allergies Allergy/AdvReac Type Severity Reaction Status Date / Time Seasonal Allergies Allergy Severe Sneezing Verified 05/08/24 11:46 Review of Systems Review of Systems Comment: Ten point ROS negative Exam Exam Comment: Gen appear: No acute distress HEENT: no icterus Chest: No overt resp distress Abd: soft, nontender, nondistended Psych: Stable affect, answering questions appropriately Neuro: A/Ox3 noted to move all extremities spontaneously Ext: no peripheral edema Plan Diagnosis/Plan: Unchanged I have reviewed the history and physical and performed a pertinent physical examination on my patient. No changes have occurred unless specified. Time Spent With Patient Time: Total time managing care of this patient today ____ minutes.
[2024-05-22] MEDS: Lactated Ringers 1,000 ML 100 ML IVCONT (07:47)
[2024-05-22 07:58] VITALS: BP 146/55; PULSE 71; RESP 18; TEMP 36.7; O2SAT 98
[2024-05-22 09:00] VITALS: BP 108/42; PULSE 62; RESP 12; TEMP 36.5; O2SAT 98
[2024-05-22 09:15] VITALS: BP 130/54; PULSE 65; RESP 16; TEMP 36.5; O2SAT 100
== END 2024-05-22 09:43 | disposition home or self-care (01) ==
PROVIDERS: PCP Family Medicine; Visit Provider Internal Medicine
PROC: 0DJD8ZZ Inspection of Lower Intestinal Tract, Via Natural or Artificial Opening Endoscopic (ICD-10-PCS; CPT 45378; principal; 2024-05-22 08:50)
DX: Z12.11 Encounter for screening for malignant neoplasm of colon (principal); Z86.0101 Personal history of adenomatous and serrated colon polyps; K63.5 Polyp of colon; K57.30 Diverticulosis of large intestine without perforation or abscess without bleeding; K64.8 Other hemorrhoids; K21.9 Gastro-esophageal reflux disease without esophagitis; I10 Essential (primary) hypertension; M19.90 Unspecified osteoarthritis, unspecified site; Z79.899 Other long term (current) drug therapy; Z96.643 Presence of artificial hip joint, bilateral; Z98.1 Arthrodesis status; Z98.890 Other specified postprocedural states; F17.210 Nicotine dependence, cigarettes, uncomplicated
CPT/HCPCS: 45385; 88305; J2003; J2704

== ENCOUNTER → 2024-05-22 07:10 | Outpatient (BNV) | payer MEDICARE, SELFPAY | PROVIDERS: PCP Family Medicine; Visit Provider Internal Medicine | DX: Z12.11 Encounter for screening for malignant neoplasm of colon (principal); Z86.0100 Personal history of colon polyps, unspecified; K63.5 Polyp of colon; K57.30 Diverticulosis of large intestine without perforation or abscess without bleeding | CPT/HCPCS: 45385 ==

== ENCOUNTER 2024-05-29 12:32 | Outpatient (REF) | payer MEDICARE, SELFPAY ==
--- NOTE | ~2024-05-29 | US_ITS ---
EXAMINATION: US LOWER EXTREMITY VENOUS (REFLUX EXAM), BILATERAL CLINICAL INFORMATION: Varices. COMPARISON: None. TECHNIQUE: Color flow triplex imaging and compression Doppler was performed to evaluate both the deep and the superficial systems bilaterally. To evaluate the superficial system, the examination was performed in the upright position. Color-flow Doppler ultrasound and compression ultrasound were utilized. In addition, maneuvers were utilized to demonstrate reflux. FINDINGS: 1. DEEP VENOUS ULTRASOUND OF THE RIGHT LOWER EXTREMITY: Common Femoral Vein: Compressible, normal respiratory variation and augmented flow. Femoral Vein: Compressible, normal color flow and augmentation. Popliteal Vein: Compressible, normal augmentation. Deep Reflux: There is no evidence of reflux in the deep system in either the common femoral vein, superficial femoral or the popliteal vein. There is no evidence of a Carr's cyst. 2. SUPERFICIAL ULTRASOUND WITH DOPPLER OF RIGHT LOWER EXTREMITY: GREAT SAPHENOUS VEIN: Saphenofemoral Junction: 0.6 cm; Reflux: 0 ms Proximal Thigh: 0.5 cm; Reflux: 0 ms Mid Thigh: 0.4 cm; Reflux: 0 ms Distal Thigh: 0.4 cm; Reflux: 0 ms At Knee: 0.2 cm; Reflux: 0 ms Proximal Calf: 0.3 cm; Reflux: 0 ms Mid Calf: 0.2 cm; Reflux: 552 ms Distal Calf: 0.2 cm; Reflux: 0 ms DUPLICATED MEDIAL GREAT SAPHENOUS VEIN: Diameter: None imaged Reflux: NA DUPLICATED LATERAL GREAT SAPHENOUS VEIN: Diameter: None imaged Reflux: NA SMALL SAPHENOUS VEIN: Saphenopopliteal Junction: 0.3 cm; Reflux: 0 ms Proximal: 0.2 cm; Reflux: 0 ms Distal: 0.2 cm; Reflux: 0 ms VEIN OF GIACOMINI: Size: NA Reflux: NA PERFORATORS: Location: Great saphenous vein in the proximal thigh and midcalf. Size: 0.2 cm. Reflux: NA VARICOSITIES: Location: Great saphenous vein distal thigh. Size: 0.3 cm. Reflux: NA 3. DEEP VENOUS ULTRASOUND OF THE LEFT LOWER EXTREMITY: Common Femoral Vein: Compressible, normal respiratory variation and augmented flow. Femoral Vein: Compressible, normal color flow and augmentation. Popliteal Vein: Compressible, normal augmentation. Deep Reflux: There is no evidence of reflux in the deep system in either the common femoral vein, superficial femoral or the popliteal vein. There is no evidence of a Carr's cyst. 4. SUPERFICIAL ULTRASOUND WITH DOPPLER OF LEFT LOWER EXTREMITY: GREAT SAPHENOUS VEIN: Saphenofemoral Junction: 0.5 cm; Reflux: 0 ms Proximal Thigh: 0.5 cm; Reflux: 0 ms Mid Thigh: 0.3 cm; Reflux: 0 ms Distal Thigh: 0.1 cm; Reflux: 0 ms At Knee: 0.2 cm; Reflux: 2716 ms Proximal Calf: 0.2 cm; Reflux: 0 ms Mid Calf: 0.2 cm; Reflux: 2576 ms Distal Calf: 0.3 cm; Reflux: 2560 ms DUPLICATED MEDIAL GREAT SAPHENOUS VEIN: Diameter: None imaged Reflux: NA DUPLICATED LATERAL GREAT SAPHENOUS VEIN: Diameter: None imaged. Reflux: NA SMALL SAPHENOUS VEIN: Saphenopopliteal Junction: 0.5 cm; Reflux: 0 ms Proximal: 0.2 cm; Reflux: 0 ms Distal: 0.2 cm; Reflux: 0 ms VEIN OF GIACOMINI: Size: NA Reflux: NA PERFORATORS: Location: Great saphenous vein proximal thigh and midcalf and small saphenous vein mid segment. Size: 0.1-0.4 cm. Reflux: NA VARICOSITIES: Location: Great saphenous vein distal thigh. Size: 0.3 cm. Reflux: NA US/US venous insuf bilat IMPRESSION: Right: Venous insufficiency, great saphenous vein mid calf. Varices in the distal thigh without reflux. Perforators in the proximal thigh and midcalf without reflux. Left: Venous insufficiency, great saphenous vein at the knee mid calf and ankle. Varices in the great saphenous vein distal thigh without reflux. Perforators without reflux in the proximal thigh and midcalf. Electronically signed by: Kirk Lujan MD 05/29/2024 02:58 PM EDT
--- OUTSIDE RECORDS SUMMARY | 2024-05-29 15:06 | XMS_ITS | Encounter Summary ---
Author Organization [facility] Address [address] [place] [address] Care Team Providers Care Manufacturing Mechanic Name Role Phone Viv Kauffman MD Primary Care Provider Rosalino Dewey MD Primary Care Provider Unava Mika Lay DO Primary Care Provider [facility], Pcp Primary Care Provider UnavailJose E Miller MD Primary Care Provider Unav Bharat Myers MD, PHD Unavailable Unava ilDarinel Davis PA-C Unavailable [phone] Reason for Visit * Reason Onset Date Comments Orders Call 01/29/2015 Office notes and xrays Encounter Details Date Type Department Care Team Description 01/29/2015 Telephone Medicine/Pediatrics - [address] [id number] Viv Kauffman MD Orders Call (Office notes and xrays) Social History Tobacco Use Types Packs/Day Years Used Date Smoking Tobacco: Every Day Cigarettes 1 18 Smokeless Tobacco: Never Comments:quit 06/27/15 Alcohol Use Standard Drinks/Week Comments Yes 0 (1 standard drink = 0.6 oz pur e alcohol) occasional Alcohol Habits Answer Date Recorded How often do you have a drink containing alcohol ? Never 03/28/2019 How many drinks containing a lcohol do you have on a typical day when you are drinking? Not asked How often do you have six or more drinks on one occasion? Not asked Sex Assigned at Date Recorded Not on file Job Start Date Occupation Industry Not on file Not on file Not on file documented as of this encounter Miscellaneous Notes * Telephone Encounter - Chioma Nuñez L.P.N. - 01/29/2015 9:17 AM EST Pt needs to sign a release there is sensitive material in the office note * Telephone Encounter - Marilou Briceno - 01/29/2015 8:59 AM EST Jania from [facility] requesting the pt's last office note and any xrays done at [facility] faxed to [phone]. documented in this encounter Plan of Treatment Not on file documented as of this encounter Visit Diagnoses Not on filedocumented in this encounter Care Teams Manufacturing Mechanic Relationship Specialty Start Date End Date Viv Kauffman MD PCP - General Internal Medicine 01/17/15 11/10/17 Rosalino Jung MD PCP - General Internal Medicine 11/11/17 07/21/20 Mika Le DO PCP - General Internal Medicine 07/22/[address] [place] [address] PCP - General Internal Medicine 12/01/20 03/22/22 Jose E Dye MD PCP - General Family Practice 03/23/22 Bharat Anand MD, PHD Surgeon Neurosurgery 04/13/22 Darinel Sun PA-C [address] [place] [address] [place] [address] Specialist Neurosurgery 04/13/22 documented as of this encounter
--- OUTSIDE RECORDS SUMMARY | 2024-05-29 15:06 | XMS_ITS | Encounter Summary ---
Author Organization [facility] Address [address] [place] [address] Care Team Providers Care Lead Mobile Developer Name Role Phone Rosalino Jung MD Primary Care Provider Unava Mika Lay DO Primary Care Provider Rabia jude Baig [facility] Primary Care Provider Jose E Vogt MD Primary Care Provider UnaBharat Gomes MD, PHD Unavailable Unava Darinel Thomas PA-C Unavailable [phone] Encounter Details Date Type Department Care Team Description 01/18/2019 Old Medical Records Medical Records [address] [place] [address] Abstract, Provider Social History Tobacco Use Types Packs/Day Years Used Date Smoking Tobacco: Every Day Cigarettes 1 18 Smokeless Tobacco: Never Comments:currently smoking 6 -8 ciggs/day Alcohol Use Standard Drinks/Week Comments Yes 0 [...] on file documented as of this encounter Plan of Treatment Not on file documented as of this encounter Visit Diagnoses Not on filedocumented in this encounter Care Teams Lead Mobile Developer Relationship Specialty Start Date End Date Rosalino Jung MD PCP - General Internal Medicine 11/11/17 07/21/20 Mika Le DO PCP - General Internal Medicine 07/22/20 [facility] PCP - General Internal Medicine 12/01/20 03/22/22 Jose E Dye MD PCP - General Family Practice 03/23/22 Bharat Anand MD, PHD Surgeon Neurosurgery 04/13/22 Darinel Sun PA-C [address] [place] [address] Specialist Neurosurgery 04/13/22 documented as of this encounter
--- OUTSIDE RECORDS SUMMARY | 2024-05-29 15:06 | XMS_ITS | Encounter Summary ---
Author Organization [facility] Address [address] [place] [address] Care Team Providers Care Bell Neck Hammerer Name Role Phone Jose E Dye MD Primary Care Provider Unav ailable Bharat Anand MD, PHD Unavailable Unava ilable Darinel Sun PA-C Unavailable [phone] Encounter Details Date Type Department Care Team Description 05/03/2022 Field Clerk Report Medical Records [address] [place] [id number] Jose E Dye MD Social History Tobacco Use Types Packs/Day Years Used Date Smoking Tobacco: Former Cigarettes 0.5 18 Q uit: 11/28/2019 Smokeless Tobacco: Never Alcohol Use Standard Drinks/Week Comments No 0 (1 standard drink = 0.6 oz [...] on filedocumented in this encounter Care Teams Bell Neck Hammerer Relationship Specialty Start Date End Date Jose E Dye MD PCP - General Family Practice 03/23/22 Bharat Anand MD, PHD Surgeon Neurosurgery 04/13/22 Darinel Sun PA-C [address] [place] [address] Specialist Neurosurgery 04/13/22 documented as of this encounter
--- OUTSIDE RECORDS SUMMARY | 2024-05-29 15:06 | XMS_ITS | Clinical Summary ---
Author Organization [facility] Address [address] [place] [address] Care Team Providers Care Centrifugal Station Operator Name Role Phone Jose E Dye MD Primary Care Provider Unav Bharat Myers MD, PHD Unavailable Unava ilDarinel Davis PA-C Unavailable [phone] Allergies Active Allergy Reactions Severity Noted Date Comments Seasonal Allergies 08/15/2012 Medications Medication Sig Dispensed Refills Start Date End Date Status clonazepam (KLONOPIN) 1 MG tablet Take 2 mg by mouth 2 times daily as needed. 1-3 times a day prn 0 Active mirtazapine (REMERON) 45 MG tablet 0 06/21/2016 Active hydrOXYzine (VISTARIL) 50 MG capsule 0 06/21/2016 Active duloxetine (CYMBALTA) 60 MG capsule 2 Caps daily. 0 03/07/2019 Active Buprenorphine HCl-Naloxone HCl 8-[address] under the tongue 2 Times Daily. 2 films daily 0 Active cetirizine (ZYRTEC) 10 MG tabletIndications:T innitus of both ears,Vertigo,Eustac hian tube dysfunction, bilateral Take 1 Tab by mouth at bedtime for 180 days. 30 Tab 5 06/18/2020 Active omeprazole (PRILOSEC) 40 MG capsule Take 1 capsule by mouth daily. 90 capsule 1 08/15/2020 Active atorvastatin (LIPITOR) 20 MG tabletIndications:D yslipidemia Take 1 tablet by mouth daily. 90 tablet 1 09/29/2020 Active amitriptyline (ELAVIL) 25 MG tabletIndications:F kaleb back syndrome of lumbar spine Take 1 tablet by mouth at bedtime. 90 tablet 1 10/07/2020 Active ropinirole (Requip) 0.25 MG tablet Take 1 tablet by mouth daily. 30 tablet 2 10/16/2020 Active fluticasone (Flonase) 50 MCG/ACT nasal spray 1 [place] by Nasal route 2 times daily. 16 g 0 10/30/2020 Active cyclobenzaprine (FLEXERIL) 10 MG tabletIndications:F kaleb back syndrome of lumbar spine Take 0.5-1 Tablets by mouth 2 times daily as needed for Muscle spasms. 60 tablet 0 10/30/2020 Active meloxicam (MOBIC) 15 MG tabletIndications:F kaleb back syndrome of lumbar spine Take 0.5-1 Tablets by mouth daily as needed for Pain. 30 tablet 0 10/30/2020 Active Nicotine Polacrilex (Nicorette) 2 MG Gum Take 2 mg by mouth as needed for Other (smoking cessation). Every 2-4 hours 300 Each 1 10/30/2020 Active atenolol (TENORMIN) 25 MG tabletIndications:E ssential hypertension Take 2 Tablets by mouth daily. 60 tablet 0 11/07/2020 Active predniSONE (DELTASONE) 20 MG tablet Take 1 tablet by mouth 2 times daily. Take with meals 5 days. 10 tablet 0 11/14/2020 Active amlodipine (NORVASC) 5 MG tablet TAKE 1 TABLET BY MOUTH EVERY DAY 30 tablet 0 11/19/2020 Active celecoxib (CELEBREX) 100 MG capsule 0 03/19/2022 Active Buprenorphine 15 MCG/HR PATCH WEEKLY Place 1 Patch onto the skin once a week. 0 04/30/2022 Active bisacodyl (DULCOLAX) 5 MG EC tablet Take 2 tablets by mouth right before your first dose of liquid prep. 2 Tablet 0 05/14/2022 Active polyethylene glycol (GoLYTELY,NuLYTELY) 236 g suspension Take 240 mL by mouth once for 1 dose. May substitue for any PEG. Follow instructions given by office. 4000 mL 0 05/14/2022 Active Active Problems Problem Noted Date Chronic bilateral low back pain with lef t-sided sciatica 04/13/2022 Vitamin D deficiency 06/19/2020 Tinnitus of both ears 02/19/2020 Obesity (BMI 30.0-34.9) 03/28/2019 History of bilateral hip replacements Overview: Requires abx prior to dental procedurse per surgeon recs GERD (gastroesophageal reflux disease) 0 11/14/2018 Avascular necrosis of femoral head 10/20 Overview: Pe rxrays 09/2018 at [facility] ortho Dr. Ritter: severe bilateral femoral head destruction righ tgreater than left likely secondary to avascular necrosis DJD (degenerative joint disease) of knee 06/27/2018 Overview: bilateral Failed back syndrome of lumbar spine Depression 05/15/2014 Tobacco use disorder 10/16/2013 HTN (hypertension) 08/15/2012 Lumbar disc disease 08/15/2012 Anxiety 08/15/2012 Prediabetes Dyslipidemia Resolved Problems Problem Noted Date Resolved Date Tear of meniscus of right knee 07/08/2016 0 06/27/2018 Lumbago 07/31/2014 03/28/2019 Chronic knee pain 08/15/2012 03/28/2019 Dyslipidemia 06/27/2018 Immunizations Name Administration Dates Next Due TETANUS/DIPTHERIA (ADULT) 10/02/2001 Tdap 10/16/2013 Family History Medical History Relation Name Comments hx alcohol abuse Father CAD Mother s/p CABG x3 Depression/Anxiety Mother Hypertension Mother Depression/Anxiety Sister Stroke Uncle dad's bro alcohol, tobacc o Relation Name Status Comments Father Alive back issues Maternal Grandfather Maternal Grandmother Mother Alive htn, triple byp ass surgery; myeloproliferticve dis; anxiety Paternal Grandfather Paternal Grandmother Sister Alive healthy, anxiet y Uncle dad's bro Social History Tobacco Use Types Packs/Day Years Used Date Smoking Tobacco: Former Cigarettes 0.5 18 Q uit: 11/28/2019 Smokeless Tobacco: Never Tobacco Cessation:Ready to Q uit: Yes; Counseling Given: Yes Alcohol Use Standard Drinks/Week Comments No 0 [...] file Not on file Not on file Last Filed Vital Signs Vital Sign Reading Time Taken Comments Blood Pressure 124/67 10/07/2020 9:[address] Pulse 77 10/07/2020 9:29 AM EDT Temperature 36.7 ??C (98.1 ??F) 10/07/2020 9:01 AM ED T Respiratory Rate 16 10/07/2020 9:01 AM EDT Oxygen Saturation 98% 06/18/2020 10:24 AM EDT RA Inhaled Oxygen Concentration - - Weight 104.3 kg (230 lb) 04/13/2022 10:02 AM EST Height 177.8 cm (5' 10 ) 04/13/2022 10:02 AM EST Body Mass Index 33 04/13/2022 10:02 AM EST Plan of Treatment Health Maintenance Due Date Last Done Comments Covid-19 Vaccine (#1) 1970 HEPATITIS C SCREENING 02/28/1986 DEPRESSION SCREEN 07/27/2017 07/27/2016 SHINGLES VACCINE (1 of 2) 02/28/2018 BASELINE HEALTH EXAM 40-64 03/28/202103/28, 07/27/2016, 06/19/2014, Additional history exists COLON CANCER SCREENING 05/16/2022 0 (Completed), 05/16/2019 DTAP/TDAP/TD (2 - Td or Tdap) 10/17/2023 10/16/2013 INFLUENZA (#1) 2023 BMI CHECK/ADVISE 03/21/2024 10/07/2020, , 02/19/2020, Additional history exists CHOLESTEROL SCREENING 03/23/2024 03/23/2019 , 05/24/2017, 07/14/2016, Additional history exists PNEUMOCOCCAL VACCINE FOR HIG H RISK PATIENTS (#1) 02/28/2033 Care Teams Centrifugal Station Operator Relationship Specialty Start Date End Date Jose E Dye MD PCP - General Family Practice 03/23/22 Bharat Anand MD, PHD Surgeon Neurosurgery 04/13/22 Darinel Sun PA-Walter [address] [place] [address] Specialist Neurosurgery 04/13/22
--- OUTSIDE RECORDS SUMMARY | 2024-05-29 15:06 | XMS_ITS | Encounter Summary ---
Author Organization [facility] Address [address] [place] [address] Care Team Providers Care Investigative Shopper Name Role Phone Rosalino Jung MD Primary Care Provider Unava Mika Lay DO Primary Care Provider Rabia jude Baig Pcp Primary Care Provider Jose E Vogt MD Primary Care Provider Unav Bharat Myers MD, PHD Unavailable Unava ilable Darinel Sun PA-C Unavailable [phone] Encounter Details Date Type Department Care Team Description 02/20/2019 Telephone Medicine/Pediatrics - [address] [id number] Rosalino Jung MD Social History Tobacco Use Types Packs/Day [...] encounter Miscellaneous Notes * Telephone Encounter - Rosalino Jung MD - 02/20/2019 2:[address] June office (ortho), he is in surgery and his coordinator Aleja is not in the office today but will return tomorrow, left message with staff to have her call back re: pain managmeent. documented in this encounter Plan of Treatment Not on file documented as of this encounter Visit Diagnoses Not on filedocumented in this encounter Care Teams Investigative Shopper Relationship Specialty Start Date End Date Rosalino Jung MD PCP - General Internal Medicine 11/11/17 07/21/20 Mika Le DO PCP - General Internal Medicine 07/22/[address] [place] [address] PCP - General Internal Medicine 12/01/20 03/22/22 Jose E Dye MD PCP - General Family Practice 03/23/22 Bharat Anand MD, PHD Surgeon Neurosurgery 04/13/22 Darinel Sun PA-C [address] [place] [address] [place] [address] Specialist Neurosurgery 04/13/22 documented as of this encounter
--- OUTSIDE RECORDS SUMMARY | 2024-05-29 15:06 | XMS_ITS | Encounter Summary ---
[facility] Organization [facility] Address [address] [place] [address] Care Team Providers Care Decay Control Operator Name Role Phone Viv Kauffman MD Primary Care Provider UnavailRosalino Nava MD Primary Care Provider Unava ilMika Maya DO Primary Care Provider [facility], Pcp Primary Care Provider UnavailJose E Miller MD Primary Care Provider Unav Bharat Myers MD, PHD Unavailable Unava Darinel Thomas PA-C Unavailable [phone] Reason for Visit * Reason Comments E-prescribe Rx Request Encounter Details Date Type Department Care Team Description 05/13/2015 Refill Medicine/Pediatrics - [address] [address] Noni Agudelo PA-C E-prescribe Rx Request Social History Tobacco Use Types Packs/Day Years [...] encounter Miscellaneous Notes * Telephone Encounter - Leila Jade Rn - 05/13/2015 12:48 PM EST Pt has refills * Telephone Encounter - Maranda Barnhart - 05/13/2015 12:25 PM EST Patient would like script to be: E-PRESCRIBED/FAXED TO PHARMACY WHEN WAS THE PATIENT'S LAST APPOINTMENT IN ADULT MEDICINE? 12/31/14 WHEN WAS THE LAST TIME THE PATIENT SAW THEIR PCP? Hasnt seen new pcp yet Does patient have an upcoming appointment? Yes 07/03/15 (THE MEDICATION REQUESTED IS ON THE MED LIST ABOVE) All of the medications requested were on the CURRENT MEDS list Did you check the Pharmacy information above?: YES Patient wants: 90 -day supply Is this a mail order prescription request ? NO Patients current insurance carrier is: Payor: MEDICAID-MD / Plan: MEDICAID PCC / Product Type: MEDICAID [id number] documented in this encounter Plan of Treatment Not on file documented as of this encounter Visit Diagnoses Not on filedocumented in this encounter Care Teams Decay Control Operator Relationship Specialty Start Date End Date Viv Kauffman MD PCP - General Internal Medicine 01/17/15 11/10/17 Rosalino Jung MD PCP - General Internal Medicine 11/11/17 07/21/20 Mika Le DO PCP - General Internal Medicine 07/22/20 Olaf Baig PCP - General Internal Medicine 12/01/20 03/22/22 Jose E Dye MD PCP - General Family Practice 03/23/22 Bharat Anand MD, PHD Surgeon Neurosurgery 04/13/22 Darinel Sun PA-C [address] [place] [address] Specialist Neurosurgery 04/13/22 documented as of this encounter
--- OUTSIDE RECORDS SUMMARY | 2024-05-29 15:06 | XMS_ITS | Encounter Summary ---
Author Organization [facility] Address [address] [place] [address] Care Team Providers Care Power Plant Operations Manager Name Role Phone Viv Kauffman MD Primary Care Provider UnavailRosalino Nava MD Primary Care Provider Unava ilMika Maya DO Primary Care Provider [facility], Pcp Primary Care Provider UnavailJose E Miller MD Primary Care Provider Unav Bharat Myers MD, PHD Unavailable Unava Darinel Thomas PA-C Unavailable [phone] Encounter Details Date Type Department Care Team Description 01/23/2015 Release of Information Medical Records [address] [place] [address] Abstract, Provider Social History Tobacco Use Types [...] in this encounter Care Teams Power Plant Operations Manager Relationship Specialty Start Date End Date Viv Kauffman MD PCP - General Internal Medicine 01/17/15 11/10/17 Rosalino Jung MD PCP - General Internal Medicine 11/11/17 07/21/20 Mika Le DO PCP - General Internal Medicine 07/22/20 [facility] PCP - General Internal Medicine 12/01/20 03/22/22 Jose E Dye MD PCP - General Family Practice 03/23/22 Bharat Anand MD, PHD Surgeon Neurosurgery 04/13/22 Darinel Sun PA-C [address] [place] [address] Specialist Neurosurgery 04/13/22 documented as of this encounter
--- OUTSIDE RECORDS SUMMARY | 2024-05-29 15:06 | XMS_ITS | Encounter Summary ---
[facility] Organization [facility] Address [address] [place] [address] Care Team Providers Care Furniture Packer Name Role Phone Valentin Gaviria MD Primary Care Provider Unavail able Viv Kauffman MD Primary Care Provider Unavaila Rosalino Kirby MD Primary Care Provider Unava ilable Mika Le DO Primary Care Provider Rabia vailable [facility], Pcp Primary Care Provider UnavailJose E Miller MD Primary Care Provider Unav Bharat Myers MD, PHD Unavailable Unava ilable Darinel Sun PA-C Unavailable [phone] Encounter Details Date Type Department Care Team Description 08/26/2013 Orders Only Medicine/Pediatrics - [address] [address] Valentin Gaviria MD Social History Tobacco Use Types Packs/Day Years Used Date Smoking Tobacco: Every Day Cigarettes 1 18 Smokeless Tobacco: Never Alcohol Use Standard Drinks/Week Comments Yes 0 [...] on filedocumented in this encounter Care Teams Furniture Packer Relationship Specialty Start Date End Date Valentin Gaviria MD PCP - General 06/28/00 01/16/15 Viv Kauffman MD PCP - General Internal Medicine 01/17/15 11/10/17 Rosalino Jung MD PCP - General Internal Medicine 11/11/17 07/21/20 Mika Le DO PCP - General Internal Medicine 07/22/20 [facility] PCP - General Internal Medicine 12/01/20 03/22/22 Jose E Dye MD PCP - General Family Practice 03/23/22 Bharat Anand MD, PHD Surgeon Neurosurgery 04/13/22 Darinel Sun PA-C [address] [place] [address] Specialist Neurosurgery 04/13/22 documented as of this encounter
--- OUTSIDE RECORDS SUMMARY | 2024-05-29 15:06 | XMS_ITS | Encounter Summary ---
[facility] Organization [facility] Address [address] [place] [address] Care Team Providers Care Molding Fitter Name Role Phone Valentin Gaviria MD Primary Care Provider Unavail able Viv Kauffman MD Primary Care Provider Unavaila Rosalino Kirby MD Primary Care Provider Unava ilable Mika Le DO Primary Care Provider Rabia vailable [facility], Pcp Primary Care Provider UnavailJose E Miller MD Primary Care Provider Unav Bharat Myers MD, PHD Unavailable Unava ilable Darinel Sun PA-C Unavailable [phone] Encounter Details Date Type Department Care Team Description 11/27/2014 Coal Tower Operator Report Medical Records [address] [place] [address] Valentin Leonard Social History Tobacco Use Types Packs/Day Years Used Date Smoking Tobacco: Former Cigarettes 1 18 Smokeless Tobacco: Never Comments:quit [...] on filedocumented in this encounter Care Teams Molding Fitter Relationship Specialty Start Date End Date Valentin Gaviria MD PCP - General 06/28/00 01/16/15 Viv Kauffman MD PCP - General Internal Medicine 01/17/15 11/10/17 Rosalino Jung MD PCP - General Internal Medicine 11/11/17 07/21/20 Mika Le DO PCP - General Internal Medicine 07/22/20 [facility] PCP - General Internal Medicine 12/01/20 03/22/22 Jose E Dye MD PCP - General Family Practice 03/23/22 Bharat Anand MD, PHD Surgeon Neurosurgery 04/13/22 Darinel Sun PA-C [address] [place] [address] Specialist Neurosurgery 04/13/22 documented as of this encounter
--- OUTSIDE RECORDS SUMMARY | 2024-05-29 15:06 | XMS_ITS | Encounter Summary ---
Author Organization [facility] Address [address] [place] [address] Care Team Providers Care Telegraph Lineman Name Role Phone Valentin Gaviria MD Primary Care Provider Unavail able Viv Kauffman MD Primary Care Provider Unavaila Rosalino Kirby MD Primary Care Provider Unava ilable Mika Le DO Primary Care Provider Rabia vailable [facility], Pcp Primary Care Provider UnavailJose E Miller MD Primary Care Provider Unav Bharat Myers MD, PHD Unavailable Unava ilable Darinel Sun PA-C Unavailable [phone] Encounter Details Date Type Department Care Team Description 01/08/2015 Rad Technologist Report Medical Records [address] [place] [address] [place] [address] [place], [place] [id number] Social History Tobacco Use Types Packs/Day Years [...] on filedocumented in this encounter Care Teams Telegraph Lineman Relationship Specialty Start Date End Date Valentin Gaviria MD PCP - General 06/28/00 01/16/15 Viv Kauffman MD PCP - General Internal Medicine 01/17/15 11/10/17 Rosalino Jung MD PCP - General Internal Medicine 11/11/17 07/21/20 Mika Le DO PCP - General Internal Medicine 07/22/[address] [place] [address] PCP - General Internal Medicine 12/01/20 03/22/22 Jose E Dye MD PCP - General Family Practice 03/23/22 Bharat Anand MD, PHD Surgeon Neurosurgery 04/13/22 Darinel Sun PA-C [address] [place] [address] Specialist Neurosurgery 04/13/22 documented as of this encounter
--- OUTSIDE RECORDS SUMMARY | 2024-05-29 15:06 | XMS_ITS | Encounter Summary ---
[facility] Organization [facility] Address [address] [place] [address] Care Team Providers Care Onboarding Specialist Name Role Phone Rosalino Jung MD Primary Care Provider Unava Mika Lay DO Primary Care Provider Rabia jude Baig Pcp Primary Care Provider Jose E Vogt MD Primary Care Provider Unav Bharat Myers MD, PHD Unavailable Unava ilable Darinel Sun PA-C Unavailable [phone] Encounter Details Date Type Department Care Team Description 03/30/2020 Pt. Non Urgent Medic al Question Adult Medicine [address] [address] Rosalino Jung MD Social History Tobacco Use Types Packs/Day Years Used Date Smoking Tobacco: Every Day Cigarettes 0.5 18 Smokeless Tobacco: Never Comments:8-10 ciggs daily Alcohol Use Standard Drinks/Week Comments No 0 [...] on file documented as of this encounter Progress Notes * Chioma Nuñez L.P.N. - 03/31/2020 10:14 AM ESTFrom: Alejandro Caruso To: Rosalino Jung MD Sent: 03/30/2020 10:46 AM EST Subject: Mr. Jung DR. Jung, Can I have a Candid Talk with you? I can make an appointment for a Tele-VISIT? documented in this encounter Plan of Treatment Not on file documented as of this encounter Visit Diagnoses Not on filedocumented in this encounter Care Teams Onboarding Specialist Relationship Specialty Start Date End Date Rosalino Jung MD PCP - General Internal Medicine 11/11/17 07/21/20 Mika Le DO PCP - General Internal Medicine 07/22/20 [facility] PCP - General Internal Medicine 12/01/20 03/22/22 Jose E Dye MD PCP - General Family Practice 03/23/22 Bharat Anand MD, PHD Surgeon Neurosurgery 04/13/22 Darinel Sun PA-C [address] [place] [address] [place] [address] Specialist Neurosurgery 04/13/22 documented as of this encounter
--- OUTSIDE RECORDS SUMMARY | 2024-05-29 15:06 | XMS_ITS | Encounter Summary ---
Author Organization [facility] Address [address] [place] [address] Care Team Providers Care Sleeve Sewer Name Role Phone Valentin Gaviria MD Primary Care Provider Unavail able Viv Kauffman MD Primary Care Provider Unavaila Rosailno Kirby MD Primary Care Provider Unava ilable Mika Le DO Primary Care Provider Rabia vailable [facility], Pcp Primary Care Provider UnavailJose E Miller MD Primary Care Provider Unav Bharat Myers MD, PHD Unavailable Unava ilable Darinel Sun PA-C Unavailable [phone] Encounter Details Date Type Department Care Team Description 09/30/2014 Abrasive Wheel Molder Report Medical Records [address] [place] [address] Giselle Vaughan MD [address] [place] [address] [address] [place] [address] Social History Tobacco Use Types Packs/Day Years [...] on filedocumented in this encounter Care Teams Sleeve Sewer Relationship Specialty Start Date End Date Valentin Gaviria MD PCP - General 06/28/00 01/16/15 Viv Kauffman MD PCP - General Internal Medicine 01/17/15 11/10/17 Rosalino Jung MD PCP - General Internal Medicine 11/11/17 07/21/20 Mika Le DO PCP - General Internal Medicine 07/22/[address] [place] [address] PCP - General Internal Medicine 12/01/20 03/22/22 Jose E Dye MD PCP - General Family Practice 03/23/22 Bharat Anand MD, PHD Surgeon Neurosurgery 04/13/22 Darinel Sun PA-C [address] [place] [address] Specialist Neurosurgery 04/13/22 documented as of this encounter
--- OUTSIDE RECORDS SUMMARY | 2024-05-29 15:06 | XMS_ITS | Encounter Summary ---
Author Organization [facility] Address [address] [place] [address] Care Team Providers Care Candy Separator Enrobing Name Role Phone Valentin Gaviria MD Primary Care Provider Unavail able Viv Kauffman MD Primary Care Provider Unavaila Rosalino Kirby MD Primary Care Provider Unava ilable Mika Le DO Primary Care Provider Rabia vailable [facility], Pcp Primary Care Provider UnavailJose E Miller MD Primary Care Provider Unav Bharat Myers MD, PHD Unavailable Unava ilable Darinel Sun PA-C Unavailable Encounter Details Date Type Department Care Team Description 07/24/2014 Map Clerk Report Medical Records [address] [place] [address] [place] [address] [place], [place] [id number] Social History Tobacco Use Types Packs/Day Years [...] on filedocumented in this encounter Care Teams Candy Separator Enrobing Relationship Specialty Start Date End Date Valentin Gaviria MD PCP - General 06/28/00 01/16/15 Viv Kauffman MD PCP - General Internal Medicine 01/17/15 11/10/17 Rosalino Jung MD PCP - General Internal Medicine 11/11/17 07/21/20 Mika Le DO PCP - General Internal Medicine 07/22/[address] [place] [address] PCP - General Internal Medicine 12/01/20 03/22/22 Jose E Dye MD PCP - General Family Practice 03/23/22 Bharat Anand MD, PHD Surgeon Neurosurgery 04/13/22 Darinel Sun PA-C [address] [place] [address] Specialist Neurosurgery 04/13/22 documented as of this encounter
--- OUTSIDE RECORDS SUMMARY | 2024-05-29 15:06 | XMS_ITS | Encounter Summary ---
Author Organization [facility] Address [address] [place] [address] Care Team Providers Care Studio Technician Name Role Phone Rosalino Jung MD Primary Care Provider Unava Mika Lay DO Primary Care Provider Rabia jude Baig [facility] Primary Care Provider Jose E Vogt MD Primary Care Provider UnaBharat Gomes MD, PHD Unavailable Unava ilable Darinel Sun PA-C Unavailable [phone] Reason for Visit * Reason Onset Date Comments Back Pain 05/16/2020 last appt with angela conti 03/09, Geovanna Perez 04/10/20 pt has been referred to pain amnagement Encounter Details Date Type Department Care Team Description 05/16/2020 Pt. 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 - 05/16/2020 9:12 AM ESTFrom: Alejandro Caruso To: Rosalino Jung MD Sent: 05/16/2020 7:19 AM EST Subject: Back Pain I'm not going to make this a long message because I sent you a longer message- but it crashed my computer. So the long and short of it, I really need something to calm whatever is going on in my lower back,but no one is listen too me. Like when I went to the doctors office and was seen by 5 different Orthopedics s urgeons over my back pain and nothing worked except the Dose Packs. Is this going to be the way I have to cope with Life? Thanks for all you do. Alejandro Caruso. documented in this encounter Plan of Treatment Not on file documented as of this encounter Results * (ABNORMAL) C-REACTIVE PROTEIN (06/18/2020 10:53 AM EDT) C-REACTIVE PROTEIN 0.53(H) <0.5 mg/dl 06/18/2020 12:59 PM EDT [facility] 06/18/2020 10:5 3 AM EDT 06/18/2020 10:54 AM EDT Rosalino Jung MD LAB [facility] documented in this encounter Visit Diagnoses Diagnosis Failed back syndrome of lumbar spine- Primary Postlaminectomy syndrome, lumbar region documented in this encounter Care Teams Studio Technician Relationship Specialty Start Date End Date Rosalino Jung MD PCP - General Internal Medicine 11/11/17 07/21/20 Mika Le DO PCP - General Internal Medicine 07/22/[address] [place] [address] PCP - General Internal Medicine 12/01/20 03/22/22 oJse E Dye MD PCP - General Family Practice 03/23/22 Bharat Anand MD, PHD Surgeon Neurosurgery 04/13/22 Darinel Sun PA-C [address] [place] [address] Specialist Neurosurgery 04/13/22 documented as of this encounter
--- OUTSIDE RECORDS SUMMARY | 2024-05-29 15:06 | XMS_ITS | Encounter Summary ---
Author Organization [facility] Address [address] [place] [address] Care Team Providers Care Finisher Tailor Apprentice Name Role Phone Viv Kauffman MD Primary Care Provider Rosalino Dewey MD Primary Care Provider Unava ilMika Maya DO Primary Care Provider [facility], Pcp Primary Care Provider UnavailJose E Miller MD Primary Care Provider Unav Bharat Myers MD, PHD Unavailable Unava ilDarinel Davis PA-C Unavailable [phone] Encounter Details Date Type Department Care Team Description 07/01/2017 Pt. Non Urgent Medical Question Medicine/Pediatrics - [address] [address] Viv Kauffman MD Social History Tobacco Use Types Packs/Day [...] of this encounter Progress Notes * Chioma SalcedoP.Hyun. - 07/01/2017 12:44 PM EDTFrom: Alejandro Caruso To: Viv Kauffman MD Sent: 07/01/2017 12:17 PM EDT Subject: Medical Records DR. Kauffman, I requested my medical records from [facility] on 06/24/17, do you know if you received them yet? Thanks Alejandro documented in this encounter Plan of Treatment Not on file documented as of this encounter Visit Diagnoses Not on filedocumented in this encounter Care Teams Finisher Tailor Apprentice Relationship Specialty Start Date End Date Viv Kauffman MD PCP - General Internal Medicine 01/17/15 11/10/17 Rosalino Jung MD PCP - General Internal Medicine 11/11/17 07/21/20 Mika Le DO PCP - General Internal Medicine 07/22/[address] [place] [address] PCP - General Internal Medicine 12/01/20 03/22/22 Jose E Dye MD PCP - General Family Practice 03/23/22 Bharat Anand MD, PHD Surgeon Neurosurgery 04/13/22 Darinel Sun PA-C [address] [place] [address] Specialist Neurosurgery 04/13/22 documented as of this encounter
--- OUTSIDE RECORDS SUMMARY | 2024-05-29 15:06 | XMS_ITS | Encounter Summary ---
Author Organization [facility] Address [address] [place] [address] Care Team Providers Care Opera Singer Name Role Phone Jose E Dye MD Primary Care Provider Unav ailBharat Seals MD, PHD Unavailable Unava ilDarinel Davis PA-C Unavailable [phone] Reason for Visit * Reason Onset Date Comments Medication 05/14/2022 Encounter Details Date Type Department Care Team Description 05/14/2022 Refill Gastroenterology - [address] [place] [address] Lois Stephens MD [address] [place] [id number] Medication Social History Tobacco Use Types Packs/Day Years [...] on filedocumented in this encounter Care Teams Opera Singer Relationship Specialty Start Date End Date Jose E Dye MD PCP - General Family Practice 03/23/22 Bharat Anand MD, PHD Surgeon Neurosurgery 04/13/22 Darinel Sun PA-C [address] [place] [address] Specialist Neurosurgery 04/13/22 documented as of this encounter
--- OUTSIDE RECORDS SUMMARY | 2024-05-29 15:07 | XMS_ITS | Encounter Summary ---
Author Organization [facility] Address [address] [place] [address] Care Team Providers Care Fill Manager Name Role Phone Rosalino Jung MD Primary Care Provider Unava Mika Lay DO Primary Care Provider Rabia jude Baig Pcp Primary Care Provider Jose E Vogt MD Primary Care Provider Unav Bharat Myers MD, PHD Unavailable Unava ilDarinel Davis PA-C Unavailable [phone] Encounter Details Date Type Department Care Team Description 03/22/2019 Telephone Medicine/Pediatrics [address] [phone] Rosalino Jung MD Social History Tobacco Use [...] on filedocumented in this encounter Care Teams Fill Manager Relationship Specialty Start Date End Date Rosalino Jung MD PCP - General Internal Medicine 11/11/17 07/21/20 Mika Le DO PCP - General Internal Medicine 07/22/20 [facility] PCP - General Internal Medicine 12/01/20 03/22/22 Jose E Dye MD PCP - General Family Practice 03/23/22 Bharat Anand MD, PHD Surgeon Neurosurgery 04/13/22 Darinel Sun PA-C [address] [place] [address] Specialist Neurosurgery 04/13/22 documented as of this encounter
--- OUTSIDE RECORDS SUMMARY | 2024-05-29 15:07 | XMS_ITS | Encounter Summary ---
Author Organization [facility] Address [address] [place] [address] Care Team Providers Care Driver/Guide Name Role Phone Rosalino Jung MD Primary Care Provider Unava Mika Lay DO Primary Care Provider Rabia jude Baig [facility] Primary Care Provider Jose E Vogt MD Primary Care Provider UnaBharat Gomes MD, PHD Unavailable Unava Darinel Thomas PA-C Unavailable [phone] Encounter Details Date Type Department Care Team Description 10/02/2018 Package Liner Report Medical Records [address] [place] [address] Petr Ritter MD Social History Tobacco Use Types Packs/Day [...] on filedocumented in this encounter Care Teams Driver/Guide Relationship Specialty Start Date End Date Rosalino Jung MD PCP - General Internal Medicine 11/11/17 07/21/20 Mika Le DO PCP - General Internal Medicine 07/22/20 [facility] PCP - General Internal Medicine 12/01/20 03/22/22 Jose E Dye MD PCP - General Family Practice 03/23/22 Bharat Anand MD, PHD Surgeon Neurosurgery 04/13/22 Darinel Sun PA-C [address] [place] [address] Specialist Neurosurgery 04/13/22 documented as of this encounter
--- OUTSIDE RECORDS SUMMARY | 2024-05-29 15:07 | XMS_ITS | Encounter Summary ---
[facility] Address [address] [place] [address] Care Team Providers Care Customer Retention Representative Name Role Phone Rosalino Jung MD Primary Care Provider Unava Mika Lay DO Primary Care Provider Rabia jude Baig Pcp Primary Care Provider Jose E Vogt MD Primary Care Provider Unav Bharat Myers MD, PHD Unavailable Unava ilDarinel Davis PA-C Unavailable [phone] Encounter Details Date Type Department Care Team Description 03/07/2020 Pt. Non Urgent Medic al Question Adult Medicine [address] [address] Rosalino Jung MD Social History Tobacco Use [...] file Not on file Not on file COVID-19 Exposure Response Date Recorded In the last month, have you been in contact with someone who was confirmed or suspected to have Coronavirus / COVID-19? No / Unsure 02/19/2020 11:10 AM EST documented as of this encounter Miscellaneous Notes * Telephone Encounter - Claudia Reveles M.A. - 03/07/2020 1:20 PM ESTFrom: Alejandro Paul Couture To: Rosalino Jung MD Sent: 03/07/2020 11:22 AM EST Subject: Ringing In my ears. DR. Jung, This is really an FYI, after the Holiday's are over I would like to talk more about the rigging in my ears, I don't remember if you told me to do something or is there nothing you can do. I stopped smoking weed for a week and that didn't help. So we can scratch that off the list. Another FYI, It's 100 days without a cigarette!!! Thank you, I probably couldn't have done it without your help!!! Thanks for doing all you do!!! Alejandro documented in this encounter Plan of Treatment Not on file documented as of this encounter Visit Diagnoses Not on filedocumented in this encounter Care Teams Customer Retention Representative Relationship Specialty Start Date End Date Rosalino Jung MD PCP - General Internal Medicine 11/11/17 07/21/20 Mika Le DO PCP - General Internal Medicine 07/22/[address] [place] [address] PCP - General Internal Medicine 12/01/20 03/22/22 Jose E Dye MD PCP - General Family Practice 03/23/22 Bharat Anand MD, PHD Surgeon Neurosurgery 04/13/22 Darinel Sun PA-C [facility] [address] [place] [address] Specialist Neurosurgery 04/13/22 documented as of this encounter
--- OUTSIDE RECORDS SUMMARY | 2024-05-29 15:07 | XMS_ITS | Encounter Summary ---
Author Organization [facility] Address [address] [place] [address] Care Team Providers Care Hairmasters Manager Name Role Phone Rosalino Jung MD Primary Care Provider Unava Mika Lay DO Primary Care Provider Rabia jude Baig [facility] Primary Care Provider Jose E Vogt MD Primary Care Provider Unav Bharat Myers MD, PHD Unavailable Unava Darinel Thomas PA-C Unavailable Encounter Details Date Type Department Care Team Description 02/26/2019 Pt. Non Urgent Medical Question Medicine/Pediatrics - [address] [address] Rosalino Jung MD Lumbar disc disease Social History Tobacco Use Types Packs/Day Years [...] Progress Notes * Chioma Nuñez L.P.N. - 02/26/2019 1:46 PM ESTFrom: Alejandro A Couture To: Rosalino Jung MD Sent: 02/26/2019 1:05 PM EST Subject: Prescription DR. Jung, Thanks for doing this for me but one more request, can the script get picked up today do to my father having to pick it up for me because I cant drive and my Mother has PT tomorrow for her vertigo. Let me know Alejandro documented in this encounter Plan of Treatment Not on file documented as of this encounter Visit Diagnoses Diagnosis Lumbar disc disease Other and unspecified disc disorder of lumbar region documented in this encounter Care Teams Hairmasters Manager Relationship Specialty Start Date End Date Rosalino Jung MD PCP - General Internal Medicine 11/11/17 07/21/20 Mika Le DO PCP - General Internal Medicine 07/22/[address] [place] [address] PCP - General Internal Medicine 12/01/20 03/22/22 Jose E Dye MD PCP - General Family Practice 03/23/22 Bharat Anand MD, PHD Surgeon Neurosurgery 04/13/22 Darinel Sun PA-C [address] [place] [address] [place] [address] Specialist Neurosurgery 04/13/22 documented as of this encounter
--- OUTSIDE RECORDS SUMMARY | 2024-05-29 15:07 | XMS_ITS | Encounter Summary ---
Author Organization [facility] Address [address] [place] [address] Care Team Providers Care Certified Wellness Program Coordinator Name Role Phone Mika Le DO Primary Care Provider [facility] Primary Care Provider oJse E Vogt MD Primary Care Provider Unav ailBharat Seals MD, PHD Unavailable Unava ilDarinel Davis PA-C Unavailable [phone] Reason for Referral * Radiology Services (Routine) - Authorized/Booked Specialty Diagnoses / Procedures Referred By Wendy ulloa Referred To Contact Radiology Diagnoses Chronic bilateral low back pain, unspecified whether sciatica present Procedures MRI OF LUMBAR SPINE NO CONTRAST Mika Le DO [address] [place] [address] Mri/[address] [address] Referral ID Status Reason Start Date Expiration Date V isits Requested Visits Authorized [id number] Authorized/B ooked 11/05/2020 03/07/2021 1 1 Reason for Visit * Reason Onset Date Comments Orders Call 11/04/2020 Encounter Details Date Type Department Care Team Description 11/04/2020 Pt. Non Urgent Medical Question Adult Medicine [place] - [place] [address] [place] [address] Mika Le DO Chronic bilateral low back pain, unspecified whether sciatica present (Primary Dx) Social History Tobacco Use Types [...] have Coronavirus / COVID-19? No / Unsure 11/03/2020 12:54 PM EDT documented as of this encounter Miscellaneous Notes * Telephone Encounter - Claudia Reveles M.A. - 11/04/2020 2:32 PM EDTFrom: Alejandro Caruso To: Geovanna Le Sent: 11/04/2020 2:16 PM EDT Subject: MRI Could you please order me a MRI for my lower back? Thanks Alejandro documented in this encounter Plan of Treatment Not on file documented as of this encounter Visit Diagnoses Diagnosis Chronic bilateral low back pain, unspecified whether sciatica present- Primary documented in this encounter Care Teams Certified Wellness Program Coordinator Relationship Specialty Start Date End Date Mika Le DO PCP - General Internal Medicine 07/22/20 [facility] Pcp PCP - General Internal Medicine 12/01/20 03/22/22 Jose E Dye MD PCP - General Family Practice 03/23/22 Bharat Anand MD, PHD Surgeon Neurosurgery 04/13/22 Darinel Sun PA-C [address] [place] [address] Specialist Neurosurgery 04/13/22 documented as of this encounter
--- OUTSIDE RECORDS SUMMARY | 2024-05-29 15:07 | XMS_ITS | Encounter Summary ---
Author Organization [facility] Address [address] [place] [address] Care Team Providers Care Advertising Statistical Clerk Name Role Phone Mika Le Primary Care Provider Rabia [facility], Pcp Primary Care Provider UnavailJose E Miller MD Primary Care Provider Unav Bharat Myers MD, PHD Unavailable Unava Darinel Thomas PA-C Unavailable [phone] Encounter Details Date Type Department Care Team Description 11/04/2020 PNO Controlled Substance Contract Medical Records [address] [place] [id number] Abstract, Provider Social History Tobacco Use Types [...] on filedocumented in this encounter Care Teams Advertising Statistical Clerk Relationship Specialty Start Date End Date Mika Le DO PCP - General Internal Medicine 07/22/20 [facility] PCP - General Internal Medicine 12/01/20 03/22/22 Jose E Dye MD PCP - General Family Practice 03/23/22 Bharat Anand MD, PHD Surgeon Neurosurgery 04/13/22 Darniel Sun PA-C [address] [place] [address] Specialist Neurosurgery 04/13/22 documented as of this encounter
--- OUTSIDE RECORDS SUMMARY | 2024-05-29 15:07 | XMS_ITS | Encounter Summary ---
Author Organization [facility] Address [address] [place] [address] Care Team Providers Care Field Operations Supervisor Name Role Phone Rosalino Jung MD Primary Care Provider Unava Mika Lay DO Primary Care Provider Rabia jude Baig [facility] Primary Care Provider Jose E Vogt MD Primary Care Provider Unav Bharat Myers MD, PHD Unavailable Unava ilable Darinel Sun PA-C Unavailable [phone] Encounter Details Date Type Department Care Team Description 09/29/[address] [facility] [address] [address] [place] Social History Tobacco Use Types Packs/Day Years [...] encounter Miscellaneous Notes * Telephone Encounter - Carlos Lara M.A. - 09/29/2018 12:08 PM EDT Last ov 06/29/18 appt 10/05/18 * Telephone Encounter - Carlos Lara M.A. - 09/29/2018 12:05 PM EDTFrom: Alejandro Caruso Sent: 09/29/2018 11:46 AM EDT Subject: Request Refill Not On Medication List Request submitted by Alejandro Caruso on 09/29/2018 at 11:46:34 AM Form Title: Request Refill Not On Medication List Submitted Data From: Alejandro Caruso Primary care provider: ROSALINO JUNG MD --- Contact Information --- Contact Phone #: [phone] --- Medication Request Information --- Medication name: Diclofenca Sodium Topical Gel 1% Dosage: 100 g instructions: apply 2-3 timesa day # Dispensed: 100 g Ordering Provider: DR. Riggs Pharmacy: [facility] Other Details: This cream helps with the pain but unfortunayly it only last an hour or two. documented in this encounter Plan of Treatment Not on file documented as of this encounter Visit Diagnoses Not on filedocumented in this encounter Care Teams Field Operations Supervisor Relationship Specialty Start Date End Date Rosalino Jung MD PCP - General Internal Medicine 11/11/17 07/21/20 Mika Le DO PCP - General Internal Medicine 07/22/[address] [place], [place] [address] PCP - General Internal Medicine 12/01/20 03/22/22 Jose E Dye MD PCP - General Family Practice 03/23/22 Bharat Anand MD, PHD Surgeon Neurosurgery 04/13/22 Darinel Sun PA-C [address] [place] [address] [place] [address] Specialist Neurosurgery 04/13/22 documented as of this encounter
--- OUTSIDE RECORDS SUMMARY | 2024-05-29 15:07 | XMS_ITS | Encounter Summary ---
Author Organization [facility] Address [address] [place] [address] Care Team Providers Care Chief Nursing Officer Name Role Phone Rosalino Jung MD Primary Care Provider Unava Mika Lay DO Primary Care Provider Rabia jude Baig [facility] Primary Care Provider Jose E Vogt MD Primary Care Provider UnaBharat Gomes MD, PHD Unavailable Unava Darinel Thomas PA-C Unavailable [phone] Encounter Details Date Type Department Care Team Description 01/18/2019 Old Medical Records Medical Records [address] [place] [address] Abstract, Provider Social History Tobacco Use Types [...] on filedocumented in this encounter Care Teams Chief Nursing Officer Relationship Specialty Start Date End Date Rosalino Jung MD PCP - General Internal Medicine 11/11/17 07/21/20 Mika Le DO PCP - General Internal Medicine 07/22/20 [facility] PCP - General Internal Medicine 12/01/20 03/22/22 Jose E Dye MD PCP - General Family Practice 03/23/22 Bharat Anand MD, PHD Surgeon Neurosurgery 04/13/22 Darinel Sun PA-C [address] [place] [address] Specialist Neurosurgery 04/13/22 documented as of this encounter
--- OUTSIDE RECORDS SUMMARY | 2024-05-29 15:07 | XMS_ITS | Encounter Summary ---
Author Organization [facility] Address [address] [place] [address] Care Team Providers Care Waterproofing Machine Operator Name Role Phone Rosalino Jugn MD Primary Care Provider Unava Mika Lay DO Primary Care Provider Rabia jude Baig Pcp Primary Care Provider Jose E Vogt MD Primary Care Provider Unav Bharat Myers MD, PHD Unavailable Unava ilable Darinel Sun PA-C Unavailable [phone] Encounter Details Date Type Department Care Team Description 02/22/2019 Pt. Non Urgent Medic al Question Medicine/Pediatrics - [address] [address] Rosalino Jung MD Social History Tobacco Use [...] Progress Notes * Chioma Nuñez L.P.N. - 02/22/2019 4:25 PM ESTFrom: Alejandro Belleture To: Rosalino Jung MD Sent: 02/22/2019 4:24 PM EST Subject: Pain Medication DR. Jung, I was just wondering if you were going to write me a script for the OxyCodone 10mg every 4 hours orwrite me one for something to help with the withdrawles. Thanks in advance, Alejandro documented in this encounter Plan of Treatment Not on file documented as of this encounter Visit Diagnoses Not on filedocumented in this encounter Care Teams Waterproofing Machine Operator Relationship Specialty Start Date End Date Rosalino Jung MD PCP - General Internal Medicine 11/11/17 07/21/20 Mika Le DO PCP - General Internal Medicine 07/22/[address] [place] [address] PCP - General Internal Medicine 12/01/20 03/22/22 Jose E Dye MD PCP - General Family Practice 03/23/22 Bharat Anand MD, PHD Surgeon Neurosurgery 04/13/22 Darinel Sun PA-C [address] [place] [address] Specialist Neurosurgery 04/13/22 documented as of this encounter
--- OUTSIDE RECORDS SUMMARY | 2024-05-29 15:07 | XMS_ITS | Encounter Summary ---
Author Organization [facility] Address [address] [place] [address] Care Team Providers Care Facilities Maintenance Worker Name Role Phone Mika Le DO Primary Care [facility] Primary Care Provider UnavailJose E Miller MD Primary Care Provider Unav ailBharat Seals MD, PHD Unavailable Unava ilDarinel Davis PA-C Unavailable [phone] Encounter Details Date Type Department Care Team Description 10/29/2020 Pt. Non Urgent Medic al Question Adult Medicine [address] [address] Mika Le DO Social History Tobacco Use Types Packs/Day Years [...] have Coronavirus / COVID-19? No / Unsure 10/07/2020 8:56 AM EDT documented as of this encounter Miscellaneous Notes * Telephone Encounter - Kat Gorman M.A. - 10/29/2020 12:29 PM EDTFrom: Alejandro Belleture To: Geovanna Le Sent: 10/29/2020 12:18 PM EDT Subject: Lower Back Pain DR. Le, I understand we don't know each other yet but I really need something to calm my back pain down. ithasn't been this bad in a long time. My back has been a problem for many years. Thanks for your time Alejandro documented in this encounter Plan of Treatment Not on file documented as of this encounter Visit Diagnoses Not on filedocumented in this encounter Care Teams Facilities Maintenance Worker Relationship Specialty Start Date End Date Mika Le DO PCP - General Internal Medicine 07/22/[address] [place] [address] PCP - General Internal Medicine 12/01/20 03/22/22 Jose E Dye MD PCP - General Family Practice 03/23/22 Bharat Anand MD, PHD Surgeon Neurosurgery 04/13/22 Darinel Sun PA-C [address] [place] [address] Specialist Neurosurgery 04/13/22 documented as of this encounter
--- OUTSIDE RECORDS SUMMARY | 2024-05-29 15:07 | XMS_ITS | Encounter Summary ---
Author Organization [facility] Address [address] [place] [address] Care Team Providers Care Anatomic Pathology Manager Name Role Phone Jose E Dye MD Primary Care Provider Unav ailable Bharat Anand MD, PHD Unavailable Unava ilDarinel Davis PA-C Unavailable [phone] Encounter Details Date Type Department Care Team Description 04/15/2022 SCAN [facility] Neurosurgery [place] [address] [place] [address] Bharat Anand MD, PHD Social History Tobacco Use Types Packs/Day Years [...] on filedocumented in this encounter Care Teams Anatomic Pathology Manager Relationship Specialty Start Date End Date Jose E Dye MD PCP - General Family Practice 03/23/22 Bharat Anand MD, PHD Surgeon Neurosurgery 04/13/22 Darinel Sun PA-C [address] [place] [address] [place] [address] Specialist Neurosurgery 04/13/22 documented as of this encounter
--- OUTSIDE RECORDS SUMMARY | 2024-05-29 15:07 | XMS_ITS | Encounter Summary ---
Author Organization [facility] Address [address] [place] [address] Care Team Providers Care Business Analyst Project Manager Name Role Phone Mika Le DO Primary Care Provider [facility] Primary Care Provider UnavailJose E Miller MD Primary Care Provider Unav ailBharat Seals MD, PHD Unavailable Unava ilDarinel Davis PA-C Unavailable [phone] Reason for Referral * EXTERNAL (Priority) - Authorized/Booked Specialty Diagnoses / Procedures Referred By Wendy ulloa Referred To Contact ORTHOPEDICS / Orthopedic Procedures REFERRAL TO ORTHOPEDICS (OUT OF NETWORK) Mika Le DO [address] [place] [address] Petr Ritter MD [address] [place] [address] [address] [place] [address] Referral ID Status Reason Start Date Expiration Date V isits Requested Visits Authorized [id number] Authorized/B ooked 11/04/2020 02/04/2021 1 1 Encounter Details Date Type Department Care Team Description 11/04/2020 Pt. Non Urgent Medical Question Adult Medicine [address] [address] Mika Le DO Low back pain, unspecified back pain laterality, unspecified chronicity, unspecified whether sciatica present (Primary Dx); Lumbar disc disease; Failed back syndrome of lumbar spine; Avascular necrosis of femoral head, unspecified laterality (HCC) Social History Tobacco Use Types Packs/Day Years [...] Encounter - Claudia Reveles M.A. - 11/04/2020 8:06 AM EDTFrom: Alejandro Caruso To: Geovanna Le Sent: 11/04/2020 7:26 AM EDT Subject: X-Ray on my left Hip DR. Le, I sent you an E-Mail yesterday about X-Rays on my back and then I sent you a second E-Mail asking to put an order in for an E-Ray on my left hip. I want to make sure I didn't damage my new hips. 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 POS - [id number] Narrative [place] [facility] EXTERNAL - 11/04/2020 11:17 AM EDT EXAM: Pelvic and left hip x-ray. HISTORY: Ongoing low back and left hip discomfort. COMPARISON: Right hip radiographs 08/03/2019 VIEWS: AP view of the pelvis and AP and frog-lateral views of the left hip performed. FINDINGS: ?? Bilateral hip prostheses, incompletely imaged on the right. ??On the left, the left hip hardware appears intact without surrounding lucency to be suggestive of loosening or infection. ??Left femoral head component is centered in the acetabular cup. No evidence of an acute fracture or dislocation. ??Pelvic ring is intact. ??No destructive bone lesion. Spinal fusion hardware and disc prosthesis at L4-5. Procedure Note Patricia Voss MD - 11/04/2020 EXAM: Pelvic and left hip x-ray. HISTORY: Ongoing low back and left hip discomfort. COMPARISON: Right hip radiographs 08/03/2019 VIEWS: AP view of the pelvis and AP and frog-lateral views of the left hipperformed. FINDINGS: Bilateral hip prostheses, incompletely imaged on the right. On the left,the left hip hardware appears intact without surrounding lucency to be suggestive of looseningor infection. Left femoral head component is centered in the acetabular cup. No evidence ofan acute fracture or dislocation. Pelvic ring is intact. No destructive bone lesion. Spinal fusion hardware and disc prosthesis at L4-5. IMPRESSION IMPRESSION: Left total hip prosthesis in place without complication evident. POS - [id number] Mika Le DO RADIOLOGY [place] OTHER EXTERNAL documented in this encounter Visit Diagnoses Diagnosis Low back pain, unspecified back pain laterality, unspecified chronicity, unspecified whether sciatica present- Primary Lumbar disc disease Other and unspecified disc disorder of lumbar region Failed back syndrome of lumbar spine Postlaminectomy syndrome, lumbar region Avascular necrosis of femoral head, unspecified laterality (HCC) Low back pain, unspecified back pain laterality, unspecified chronicity, unspecified whether sciatica present Lumbar disc disease Other and unspecified disc disorder of lumbar region Failed back syndrome of lumbar spine Postlaminectomy syndrome, lumbar region Avascular necrosis of femoral head, unspecified laterality (HCC) documented in this encounter Care Teams Business Analyst Project Manager Relationship Specialty Start Date End Date Mika Le DO PCP - General Internal Medicine 07/22/[address] [place] [address] PCP - General Internal Medicine 12/01/20 03/22/22 Jose E Dye MD PCP - General Family Practice 03/23/22 Bharat Anand MD, PHD Surgeon Neurosurgery 04/13/22 Darinel Sun PA-C [address] [place] [address] Specialist Neurosurgery 04/13/22 documented as of this encounter
--- OUTSIDE RECORDS SUMMARY | 2024-05-29 15:07 | XMS_ITS | Encounter Summary ---
Author Organization [facility] Address [address] [place] [address] Care Team Providers Care Worker'S Compensation Claims Examiner Name Role Phone Rosalino Jung MD Primary Care Provider Unava ilMika Maya DO Primary Care Provider Rabia jude [facility] Primary Care Provider Jose E Vogt MD Primary Care Provider Unav Bharat Myers MD, PHD Unavailable Unava ilable Darinel Sun PA-C Unavailable [phone] Reason for Referral * EXTERNAL (Routine) - Authorized/Booked Specialty Diagnoses / Procedures Referred By Contac t Referred To Contact ORTHOPEDICS / Orthopedic Procedures REFERRAL TO ORTHOPEDICS (OUT OF NETWORK) Rosalino Jung MD [address] [place] [address] [facility] Referral ID Status Reason Start Date Expiration Date V isits Requested Visits Authorized SEE NOTE Authorized/B ooked 09/17/2018 12/19/2018 1 1 Encounter Details Date Type Department Care Team Description 09/14/2018 Pt. Non Urgent Medic al Question Medicine/Pediatrics - [address] [id number] Rosalino Jung MD Social History Tobacco Use [...] Progress Notes * Chioma Nuñez L.P.N. - 09/14/2018 8:55 AM EDTFrom: Alejandro Caruso To: Rosalino Jung MD Sent: 09/14/2018 3:17 AM EDT Subject: 2nd Opinion Right Knee Dr. Jung, I had my follow up on Tuesday09-13-[address] Riggs and the GEL injections did not work I am still at a 10 for my pain level. The thing I dont understand is if you look at my MRI you can see thetorn Meniscus, the arthritis, the bone on bone ect.. but if you look at the X-RAY my knee doesnt look that bad. Unfortunately for me that is what his bone person looks at and Dr. Riggs said they would just send it back to him because my knee from the X-RAY view doesnt look bad enough. Dr. Riggsis sending me for a 3rd opinion with Dr. Ritter out of [facility]. I was wondering if someone could give me a referral to [facility] in [place], [place]. Phonenumber is [phone]. I would still like the referral for [place], I would go their first just because of the distance to [facility] and if they say no in [place] then I would like to try [facility]. Dr. Jung I really hope you believe the pain im in, I really need to get some kind of Quality ofLife sooner rather than later I havent had a Quality Of Life for the past 3 years. I have told you what I can and can not do because of the pain, I won't bother you with the list of things I can and can not do because of the pain I am sure your sick of melinda me talk about it. Please let me know your thoughts. Thanks Alejandro. documented in this encounter Plan of Treatment Not on file documented as of this encounter Visit Diagnoses Not on filedocumented in this encounter Care Teams Worker'S Compensation Claims Examiner Relationship Specialty Start Date End Date Rosalino Jung MD PCP - General Internal Medicine 11/11/17 07/21/20 Mika Le DO PCP - General Internal Medicine 07/22/20 [facility] PCP - General Internal Medicine 12/01/20 03/22/22 Jose E Dye MD PCP - General Family Practice 03/23/22 Bharat Anand MD, PHD Surgeon Neurosurgery 04/13/22 Darinel Sun PA-C [address] [place] [address] Specialist Neurosurgery 04/13/22 documented as of this encounter
--- OUTSIDE RECORDS SUMMARY | 2024-05-29 15:07 | XMS_ITS | Encounter Summary ---
Author Organization [facility] Address [address] [place] [address] Care Team Providers Care Mounter Saxophones Name Role Phone Rosalino Jung MD Primary Care Provider Unava Mika Lay DO Primary Care Provider Rabia jude Baig Pcp Primary Care Provider Jose E Vogt MD Primary Care Provider Unav Bharat Myers MD, PHD Unavailable Unava Darinel Thomas PA-C Unavailable [phone] Encounter Details Date Type Department Care Team Description 05/22/2020 Refill Medicine/Pediatrics [address] [address] Sherley Hawkins PA-C [address] [place] [address] Social History Tobacco Use Types Packs/Day Years [...] as of this encounter Visit Diagnoses Diagnosis Failed back syndrome of lumbar spine Postlaminectomy syndrome, lumbar region documented in this encounter Care Teams Mounter Saxophones Relationship Specialty Start Date End Date Rosalino Jung MD PCP - General Internal Medicine 11/11/17 07/21/20 Mika Le DO PCP - General Internal Medicine 07/22/20 [facility] PCP - General Internal Medicine 12/01/20 03/22/22 Jose E Dye MD PCP - General Family Practice 03/23/22 Bharat Anand MD, PHD Surgeon Neurosurgery 04/13/22 Darinel Sun PA-C [address] [place] [address] Specialist Neurosurgery 04/13/22 documented as of this encounter
--- OUTSIDE RECORDS SUMMARY | 2024-05-29 15:07 | XMS_ITS | Encounter Summary ---
Author Organization [facility] Address [address] [place] [address] Care Team Providers Care Windows Mobile Developer Name Role Phone Jose E Dye MD Primary Care Provider Unav ailable Bharat Anand MD, PHD Unavailable Unava ilDarinel Davis PA-C Unavailable [phone] Encounter Details Date Type Department Care Team Description 04/14/2022 SCAN [facility] Neurosurgery [place] [address] [place] [address] Bharat Anand MD, PHD Social [...] on filedocumented in this encounter Care Teams Windows Mobile Developer Relationship Specialty Start Date End Date Jose E Dye MD PCP - General Family Practice 03/23/22 Bharat Anand MD, PHD Surgeon Neurosurgery 04/13/22 Darinel Sun PA-C [address] [place] [address] [place] [address] Specialist Neurosurgery 04/13/22 documented as of this encounter
--- OUTSIDE RECORDS SUMMARY | 2024-05-29 15:07 | XMS_ITS | Encounter Summary ---
Author Organization [facility] Address [address] [place] [address] Care Team Providers Care Director Clinical Data Name Role Phone Rosalino Jung MD Primary Care Provider Unava Mika Lay DO Primary Care Provider Rabia Olaf Strauss Primary Care Provider Jose E Vogt MD Primary Care Provider Unav Bharat Myers MD, PHD Unavailable Unava Darinel Thomas PA-C Unavailable [phone] Encounter Details Date Type Department Care Team Description 01/27/2018 Orders Only Medicine/Pediatrics - [address] [phone] Rosalino Jung MD Encounter for long-term (current) use of medications (Primary Dx) Social History Tobacco Use Types [...] as of this encounter Plan of Treatment Scheduled Orders Name Type Priority Associated Diagnoses Orde r Schedule [facility] DRUG SCREENING CANNABINOIDS NATURAL Lab Routine Encounter for long-term (current) use of medications Expected: 01/27/2018, Expires: 01/27/2019 [facility] DRUG SCREENING COCAINE Lab Routine Encounter for long-term (current) use of medications Expected: 01/27/2018, Expires: 01/27/2019 [facility] DRUG SCREEN QUANT AMPHETAMINES 3 OR 4 Lab Routine Encounter for long-term (current) use of medications Expected: 01/27/2018, Expires: 01/27/2019 [facility] DRUG/SUBSTANCE DEFINITIVE QUAL/QUANT NOS 1-3 (BARBITUATES) Lab Routine Encounter for long-term (current) use of medications Expected: 01/27/2018, Expires: 01/27/2019 [facility] DRUG SCREENING BENZODIAZEPINES 1-12 Lab Routine Encounter for long-term (current) use of medications Expected: 01/27/2018, Expires: 01/27/2019 documented as of this encounter Results * (ABNORMAL) OXYCODONE, URINE (03/27/2018 9:08 AM EST) URINE OXYCODONE LEVEL POSITIVE( A) NEGATIVE 03/27/2018 3:[address] [facility] Comment: Semi-quantitative urine assay for screening purposes only. Unconfirmed screening results should not be used for non-medical purposes. ALTERNATE METHOD CONFIRMATION DONE UPON REQUEST ONLY 03/27/2018 9:08 AM EST 03/27/2018 9:08 AM EST Rosalino Jung MD LAB Performing Organization Address City/State/[facility] Co de Phone Number [facility] [address] [place] [address] * DRUG OF ABUSE SCREEN (03/27/2018 9:08 AM EST) AMPHETAMINE, URINE NEGATIVE NEGATIVE 03/27/2018 2:[address] [facility] BARBITURATES, URINE NEGATIVE NEGATIVE 03/27/2018 2:[address] [facility] BENZODIAZEPINE , URINE NEGATIVE NEGATIVE 03/27/2018 2:[address] [facility] COCAINE, URINE NEGATIVE NEGATIVE 03/27/2018 2:[address] [facility] OPIATES, URINE NEGATIVE NEGATIVE 03/27/2018 2:45 PM EST [facility] MAR[facility]UANA(THC) , URINE NEGATIVE NEGATIVE 03/27/2018 2:45 PM EST [facility] 03/27/2018 9:08 AM EST 03/27/2018 9:08 AM EST Rosalino Jung MD LAB Performing Organization Address City/State/[facility] Co de Phone Number [facility] [address] [facility] * G DRUG SCREENING OPIATES 1 OR MORE (03/27/2018 9:08 AM EST) Codeine GCMS Negative ng/mL 03/31/2018 9:27 AM EST [facility] Morphine GCMS Negative ng/mL 03/31/2018 9:27 AM EST [facility] Hydromorphone GCMS Negative ng/mL 2018 9:27 AM EST [facility] Hydrocodone GCMS Negative ng/mL 03/31/19 19 9:27 AM EST [facility] PAIN OPIATE CREAT 24 20 - 250 mg/dL 03/31/2018 9:27 AM EST [facility] PAIN OPIATE ADULTERANT Negative 03/31/2018 9:27 AM EST [facility] Comment: ? Confirmation (LC/MS/MS) Decision Limits ??Morphine ?25 ng/mL ??Codeine ? 25 ng/mL ??Hydrocodone ? 25 ng/mL ??Hydromorphone ? 25 ng/mL ??Oxycodone ? 25 ng/mL ??Oxymorphone ? 25 ng/mL ??Adulterant Decision Limit: ?? General Oxidants ? 200 ug/mL ??The adulterant assay tests for General Oxidants, ??including Chromates and Nitrites. ??Adulterants are ??substances either ingested or added directly to a ??urine specimen to prevent the detection of drug use. If applicable, any drug confirmation testing reported here was developed and the performance characteristics determined by [facility]. This confirmation testing has not been cleared or approved by the FDA. The laboratory is regulated under CLIA as qualified to perform high-complexity testing. This test is used for patient testing purposes. It should not be regarded as investigational or for research. Test performed at [facility], [address] [place] [address] ??[id number] ? [phone] Doug Miner MD ??- Reactor Fueling Supervisor Oxycodone GCMS 4057 ng/mL 03/31/2018 9:27 AM EST [facility] Oxymorphone GCMS 1196 ng/mL 03/31/19 9:27 AM EST [facility] 03/27/2018 9:08 AM EST 03/27/2018 9:08 AM EST Rosalino Jung MD LAB [facility] documented in this encounter Visit Diagnoses Diagnosis Encounter for long-term (current) use of medications- Primary Encounter for long-term (current) use of other medications documented in this encounter Care Teams Director Clinical Data Relationship Specialty Start Date End Date Rosalino Jung MD PCP - General Internal Medicine 11/11/17 07/21/20 Mika Le DO PCP - General Internal Medicine 07/22/[address] [place] [address] PCP - General Internal Medicine 12/01/20 03/22/22 Jose E Dye MD PCP - General Family Practice 03/23/22 Bharat Anand MD, PHD Surgeon Neurosurgery 04/13/22 Darinel Sun PA-C 175 [facility] [address] [place] [address] Specialist Neurosurgery 04/13/22 documented as of this encounter
--- OUTSIDE RECORDS SUMMARY | 2024-05-29 15:07 | XMS_ITS | Encounter Summary ---
Author Organization [facility] Address [address] [place] [address] Care Team Providers Care Program Engagement Director Name Role Phone Rosalino Jung MD Primary Care Provider Unava Mika Lay DO Primary Care Provider Rabia jude Baig Pcp Primary Care Provider Jose E Vogt MD Primary Care Provider Unav Bharat Myers MD, PHD Unavailable Unava ilDarinel Davis PA-C Unavailable [phone] Encounter Details Date Type Department Care Team Description 12/24/2019 Pt. Non Urgent Medic al Question Adult Medicine [address] [address] Rosalino Jung MD Social History Tobacco Use [...] have Coronavirus / COVID-19? No / Unsure 11/30/2019 3:52 PM EDT documented as of this encounter Progress Notes * Chioma SalcedoPSruthi - 12/24/2019 1:59 PM EDTFrom: Alejandro Belleture To: Rosalino Jung MD Sent: 12/24/2019 12:23 PM EDT Subject: Back Pain Is way Above 10 Dr Jung, I really need something to calm my lower back down, this pain its just too much.. My doctors appointment with Dr. Morillo is 01/15/2020 Thank you, Alejandro documented in this encounter Plan of Treatment Not on file documented as of this encounter Visit Diagnoses Not on filedocumented in this encounter Care Teams Program Engagement Director Relationship Specialty Start Date End Date Rosalino Jung MD PCP - General Internal Medicine 11/11/17 07/21/20 Mika Le DO PCP - General Internal Medicine 07/22/[address] [place] [address] PCP - General Internal Medicine 12/01/20 03/22/22 Jose E Dye MD PCP - General Family Practice 03/23/22 Bharat Anand MD, PHD Surgeon Neurosurgery 04/13/22 Darinel Sun PA-C [address] [address] Specialist Neurosurgery 04/13/22 documented as of this encounter
--- OUTSIDE RECORDS SUMMARY | 2024-05-29 15:07 | XMS_ITS | Encounter Summary ---
Author Organization [facility] Address [address] [place] [address] Care Team Providers Care Stenciler Name Role Phone Rosalino Jung MD Primary Care Provider Unava Mika Lay DO Primary Care Provider Rabia jude Baig Pcp Primary Care Provider Jose E Vogt MD Primary Care Provider Unav Bharat Myers MD, PHD Unavailable Unava ilable Darinel Sun PA-C Unavailable [phone] Encounter Details Date Type Department Care Team Description 03/23/2019 Telephone Medicine/Pediatrics - [address] [id number] Rosalino Jung MD Social History Tobacco Use [...] Telephone Encounter - Rosalino Jung MD - 03/23/2019 9:58 AM EST I returned call to Elizabeth again, spoke with her. She notes she started him on suboxone therapy, she notes she thought suboxone was better choice for him than methadone. Dose started suboxone 2mg daily, thought scritp written for up to 4mg daily. He has f/u with her today. She notes main intake number for [facility] if needed in future is [phone] * Telephone Encounter - Rosalino Jung MD - 03/23/2019 9:14 AM EST Returned call to Elizabeth, left message for elizabeth to call me back. Will again await call back * Telephone Encounter - Nadja Jarrell - 03/23/2019 8:56 AM EST Elizabeth returned phone call - [phone] best number to reach her on * Telephone Encounter - Rosalino Jung MD - 03/23/2019 8:37 AM EST MIGUEL for me to speak with her included in letter received from elizabeth LOPES * Telephone Encounter - Rosalino Jung MD - 03/23/2019 8:35 AM EST Called MARIANNE Gabriel ([phone]) from suboxone clinic, I had received letter from her 03/20/19 requesting I call her as she just started Alejandro on buprenorphine treatment. Left message with her staff, will await call back documented in this encounter Plan of Treatment Not on file documented as of this encounter Visit Diagnoses Not on filedocumented in this encounter Care Teams Stenciler Relationship Specialty Start Date End Date Rosalino Jung MD PCP - General Internal Medicine 11/11/17 07/21/20 Mika Le DO PCP - General Internal Medicine 07/22/20 [facility] PCP - General Internal Medicine 12/01/20 03/22/22 Jose E Dye MD PCP - General Family Practice 03/23/22 Bharat Anand MD, PHD Surgeon Neurosurgery 04/13/22 Darinel Sun PA-C [address] [place] [address] Specialist Neurosurgery 04/13/22 documented as of this encounter
--- OUTSIDE RECORDS SUMMARY | 2024-05-29 15:07 | XMS_ITS | Encounter Summary ---
[facility] Organization [facility] Address [address] [place] [address] Care Team Providers Care Environmental Science Professor Name Role Phone Rosalino Jung MD Primary Care Provider Unava Mika Lay DO Primary Care Provider Rabia jude Baig [facility] Primary Care Provider Jose E Vogt MD Primary Care Provider UnaBharat Gomes MD, PHD Unavailable Unava Darinel Thomas PA-C Unavailable [phone] Encounter Details Date Type Department Care Team Description 06/03/2020 Old Medical Records Medical Records [address] [place] [address] Abstract, Provider Social History Tobacco Use Types [...] on filedocumented in this encounter Care Teams Environmental Science Professor Relationship Specialty Start Date End Date Rosalino Jung MD PCP - General Internal Medicine 11/11/17 07/21/20 Mika Le DO PCP - General Internal Medicine 07/22/20 [facility] PCP - General Internal Medicine 12/01/20 03/22/22 Jose E Dye MD PCP - General Family Practice 03/23/22 Bharat Anand MD, PHD Surgeon Neurosurgery 04/13/22 Darinel Sun PA-C [address] [place] [address] Specialist Neurosurgery 04/13/22 documented as of this encounter
--- OUTSIDE RECORDS SUMMARY | 2024-05-29 15:07 | XMS_ITS | Encounter Summary ---
Author Organization [facility] Address [address] [place] [address] Care Team Providers Care Nanny Babysitter Name Role Phone Rosalino Jung MD Primary Care Provider Unava Mika Lay DO Primary Care Provider Rabia Olaf Strauss Primary Care Provider Jose E Vogt MD Primary Care Provider Unav Bharat Myers MD, PHD Unavailable Unava ilDarinel Davis PA-C Unavailable [phone] Encounter Details Date Type Department Care Team Description 04/09/2020 Pt. Non Urgent Medic al Question Adult Medicine [address] [address] Rosalino Jung MD Social History Tobacco Use [...] have Coronavirus / COVID-19? No / Unsure 04/10/2020 9:15 AM EST documented as of this encounter Progress Notes * Chioma Nuñez L.P.N. - 04/09/2020 8:50 AM ESTFrom: Alejandro Caruso To: Rosalino Jung MD Sent: 04/09/2020 8:01 AM EST Subject: Lower Back Pain DR. Jung, I did something to my back last , something that won't be fixed tomorrow. The pain I woke up to is as bad if not worse than before my hip surgeries I must have a pinch nerve or something DR. Jung could you do something for the pain again? documented in this encounter Plan of Treatment Not on file documented as of this encounter Visit Diagnoses Not on filedocumented in this encounter Care Teams Nanny Babysitter Relationship Specialty Start Date End Date Rosalino Jung MD PCP - General Internal Medicine 11/11/17 07/21/20 Mika Le DO PCP - General Internal Medicine 07/22/[address] [place] [address] PCP - General Internal Medicine 12/01/20 03/22/22 Jose E Dye MD PCP - General Family Practice 03/23/22 Bharat Anand MD, PHD Surgeon Neurosurgery 04/13/22 Darinel Sun PA-C [address] [place] [address] Specialist Neurosurgery 04/13/22 documented as of this encounter
--- OUTSIDE RECORDS SUMMARY | 2024-05-29 15:07 | XMS_ITS | Encounter Summary ---
Author Organization [facility] Address [address] [place] [address] Care Team Providers Care Scale Reclamation Tender Name Role Phone Rosalino Jung MD Primary Care Provider Unava Mika Lay DO Primary Care Provider Rabia jude Baig Pcp Primary Care Provider Jose E Vogt MD Primary Care Provider Unav Bharat Myers MD, PHD Unavailable Unava Darinel Thomas PA-C Unavailable [phone] Encounter Details Date Type Department Care Team Description 05/22/[address] [facility] Adult [address] [address] Joel Perez PA-C Social History Tobacco Use Types Packs/Day Years [...] encounter Miscellaneous Notes * Telephone Encounter - Trihs Mcallister - 05/22/2020 3:01 PM EST Xavier 04/10/20 Lab Results Component Value Date NA 138 03/23/2019 K 4.1 03/23/2019 CO2 30 03/23/2019 CL 104 03/23/2019 BUN 9 03/23/2019 CREAT 0.81 03/23/2019 GLU 106 03/23/2019 CA 9.5 03/23/2019 GFR > 60 03/23/2019 documented in this encounter Plan of Treatment Not on file documented as of this encounter Visit Diagnoses Diagnosis Failed back syndrome of lumbar spine Postlaminectomy syndrome, lumbar region documented in this encounter Care Teams Scale Reclamation Tender Relationship Specialty Start Date End Date Rosalino Jung MD PCP - General Internal Medicine 11/11/17 07/21/20 Mika Le DO PCP - General Internal Medicine 07/22/20 [facility] PCP - General Internal Medicine 12/01/20 03/22/22 Jose E Dye MD PCP - General Family Practice 03/23/22 Bharat Anand MD, PHD Surgeon Neurosurgery 04/13/22 Darinel Sun PA-C [address] [place] [address] Specialist Neurosurgery 04/13/22 documented as of this encounter
--- OUTSIDE RECORDS SUMMARY | 2024-05-29 15:07 | XMS_ITS | Encounter Summary ---
Author Organization [facility] Address [address] [place] [address] Care Team Providers Care Special Education Coordinator Name Role Phone Jose E Dye MD Primary Care Provider Unav ailBharat Seals MD, PHD Unavailable Unava ilable Darinel Sun PA-C Unavailable [phone] Encounter Details Date Type Department Care Team Description 04/19/2022 Release of Information Medical Records [address] [place] [address] Abstract, Provider Social History Tobacco Use Types [...] on filedocumented in this encounter Care Teams Special Education Coordinator Relationship Specialty Start Date End Date Jose E Dye MD PCP - General Family Practice 03/23/22 Bharat Anand MD, PHD Surgeon Neurosurgery 04/13/22 Darinel Sun PA-C 175 [facility] [address] [place] [address] Specialist Neurosurgery 04/13/22 documented as of this encounter
--- OUTSIDE RECORDS SUMMARY | 2024-05-29 15:07 | XMS_ITS | Encounter Summary ---
Author Organization [facility] Address [address] [place] [address] Care Team Providers Care Rehab Aid Name Role Phone Rosalino Jung MD Primary Care Provider Unava Mika Lay DO Primary Care Provider Rabia Olaf Strauss Primary Care Provider Jose E Vogt MD Primary Care Provider UnaBharat Gomes MD, PHD Unavailable Unava Darinel Thomas PA-C Unavailable [phone] Encounter Details Date Type Department Care Team Description 12/19/2017 [facility] Medical Records [address] [place] [address] Abstract, Provider Social History Tobacco Use Types [...] on filedocumented in this encounter Care Teams Rehab Aid Relationship Specialty Start Date End Date Rosalino Jung MD PCP - General Internal Medicine 11/11/17 07/21/20 Mika Le DO PCP - General Internal Medicine 07/22/20 [facility] PCP - General Internal Medicine 12/01/20 03/22/22 Jose E Dye MD PCP - General Family Practice 03/23/22 Bharat Anand MD, PHD Surgeon Neurosurgery 04/13/22 Darinel Sun PA-C [address] [place] [address] Specialist Neurosurgery 04/13/22 documented as of this encounter
--- OUTSIDE RECORDS SUMMARY | 2024-05-29 15:07 | XMS_ITS | Encounter Summary ---
Author Organization [facility] Address [address] [place] [address] Care Team Providers Care Clinical Resource Coordinator Name Role Phone Valentin Gaviria MD Primary Care Provider Unavail able Viv Kauffman MD Primary Care Provider Unavaila Rosalino Kirby MD Primary Care Provider Unava ilable Mika Le DO Primary Care Provider Rabia vailable [facility], Pcp Primary Care Provider UnavailJose E Miller MD Primary Care Provider Unav Bharat Myers MD, PHD Unavailable Unava ilable Darinel Sun PA-C Unavailable [phone] Encounter Details Date Type Department Care Team Description 03/27/2014 Catering Barista Report Medical Records [address] [place] [address] [place] [address] [place], [place] [id number] Social History Tobacco Use Types Packs/Day Years [...] on filedocumented in this encounter Care Teams Clinical Resource Coordinator Relationship Specialty Start Date End Date Valentin Gaviria MD PCP - General 06/28/00 01/16/15 Viv Kauffman MD PCP - General Internal Medicine 01/17/15 11/10/17 Rosalino Jung MD PCP - General Internal Medicine 11/11/17 07/21/20 Mika Le DO PCP - General Internal Medicine 07/22/[address] [place] [address] PCP - General Internal Medicine 12/01/20 03/22/22 Jose E Dye MD PCP - General Family Practice 03/23/22 Bharat Anand MD, PHD Surgeon Neurosurgery 04/13/22 Darinel Sun PA-C [address] [place] [address] Specialist Neurosurgery 04/13/22 documented as of this encounter
--- OUTSIDE RECORDS SUMMARY | 2024-05-29 15:07 | XMS_ITS | Encounter Summary ---
Author Organization [facility] Address [address] [place] [address] Care Team Providers Care Bottom Buffer Name Role Phone Rosalino Jung MD Primary Care Provider Unava Mika Lay DO Primary Care Provider Rabia jude Baig Pcp Primary Care Provider Jose E Vogt MD Primary Care Provider Unav Bharat Myers MD, PHD Unavailable Unava ilDarinel Davis PA-C Unavailable [phone] Encounter Details Date Type Department Care Team Description 12/19/2019 Pt. Non Urgent Medic al Question Adult Medicine [address] [address] Rosalino Jung MD Social History Tobacco Use [...] as of this encounter Progress Notes * Ivon Márquez M.A. - 12/19/2019 1:56 PM EDTFrom: Alejandro Caruso To: Rosalino Jung MD Sent: 12/19/2019 12:24 PM EDT Subject: [facility] Closed DR. Jung, [facility] until further [facility]. Could you please send the [facility] [place] Thanks Alejandro documented in this encounter Plan of Treatment Not on file documented as of this encounter Visit Diagnoses Not on filedocumented in this encounter Care Teams Bottom Buffer Relationship Specialty Start Date End Date Rosalino Jung MD PCP - General Internal Medicine 11/11/17 07/21/20 Mika Le DO PCP - General Internal Medicine 07/22/[address] [place] [address] PCP - General Internal Medicine 12/01/20 03/22/22 Jose E Dye MD PCP - General Family Practice 03/23/22 Bharat Anand MD, PHD Surgeon Neurosurgery 04/13/22 Darinel Sun PA-C [address] [place] [address] [place] [address] Specialist Neurosurgery 04/13/22 documented as of this encounter
--- OUTSIDE RECORDS SUMMARY | 2024-05-29 15:07 | XMS_ITS | Encounter Summary ---
Author Organization [facility] Address [address] [place] [address] Care Team Providers Care Tailings Dam Laborer Name Role Phone Rosalino Jung MD Primary Care Provider Unava Mika Lay DO Primary Care Provider Rabia jude Baig Pcp Primary Care Provider Jose E Vogt MD Primary Care Provider Unav Bharat Myers MD, PHD Unavailable Unava ilable Darinel Sun PA-C Unavailable [phone] Encounter Details Date Type Department Care Team Description 03/12/2019 Pt. Non Urgent Medic al Question Medicine/Pediatrics - [address] [phone] Rosalino Jung MD Social History Tobacco Use [...] as of this encounter Progress Notes * Carlos Lara M.A. - 03/12/2019 3:51 PM ESTFrom: Alejandro Caruso To: Rosalino Jung MD Sent: 03/12/2019 3:49 PM EST Subject: Personal and Confidential DR. Jung, I just want to appoligize for letting you down and lettting myself down, but if you were in the pain I'm in and the position I'm in like wanting to take care of my parents (that's the way its supposed too work at my age.) I am one of the ramez ones to still have both or even one paren t living. I was in so much pain over that week and weekend I did what I had to do knowing it was wrong and that'smy bad and I will take full responsibility for my actions. I have no idea what you have going on inyour life nor should I, but when I write to you and it takes more time then I think it should to write me back it's the pain talking and that's not fair to you because I have gotten e-mails from you all times of the day and n ight and I appreciate that. I hope that you and your entire family never has to deal with the chronic pain I am going through, I wouldn't wish this on anybody, not even my worst enemy. If I cancel my appointment for 03.28.19 it's because I'm too embarrassed to see you and your team because not much seems to confidential there. I have thought back 35 years and can't namea better doctor (PCP) then you and I truly mean that. You are d own to earth, you say it how it is,no bullshitting and that's the way I like it. I have decided to try the Methadone clinic, my first appointment is next Tuesday. I hope you and your faimly have a great Holiday season, and I hope ross gets you everything you asked for. Thanks for your time, Alejandro Caruso documented in this encounter Plan of Treatment Not on file documented as of this encounter Visit Diagnoses Not on filedocumented in this encounter Care Teams Tailings Dam Laborer Relationship Specialty Start Date End Date Rosalino Jung MD PCP - General Internal Medicine 11/11/17 07/21/20 Mika Le DO PCP - General Internal Medicine 07/22/20 [facility] PCP - General Internal Medicine 12/01/20 03/22/22 Jose E Dye MD PCP - General Family Practice 03/23/22 Bharat Anand MD, PHD Surgeon Neurosurgery 04/13/22 Darinel Sun PA-C [address] [place] [address] Specialist Neurosurgery 04/13/22 documented as of this encounter
--- OUTSIDE RECORDS SUMMARY | 2024-05-29 15:07 | XMS_ITS | Encounter Summary ---
[facility] Organization [facility] Address [address] [place] [address] Care Team Providers Care Purse Seiner Name Role Phone Valentin Gaviria MD Primary Care Provider Unavail able Viv Kauffman MD Primary Care Provider Unavaila Rosalino Kirby MD Primary Care Provider Unava ilable Mika Le DO Primary Care Provider Rabia vailable [facility], Pcp Primary Care Provider UnavailJose E Miller MD Primary Care Provider Unav Bharat Myers MD, PHD Unavailable Unava ilable Darinel Sun PA-C Unavailable [phone] Encounter Details Date Type Department Care Team Description 09/12/2012 Physics And Astronomy Professor Report Medical Records [address] [place] [address] Mika Duque Social History Tobacco Use Types Packs/Day Years [...] on filedocumented in this encounter Care Teams Purse Seiner Relationship Specialty Start Date End Date Valentin Gaviria MD PCP - General 06/28/00 01/16/15 Viv Kauffman MD PCP - General Internal Medicine 01/17/15 11/10/17 Rosalino Jung MD PCP - General Internal Medicine 11/11/17 07/21/20 Mika Le DO PCP - General Internal Medicine 07/22/20 [facility] PCP - General Internal Medicine 12/01/20 03/22/22 Jose E Dye MD PCP - General Family Practice 03/23/22 Bharat Anand MD, PHD Surgeon Neurosurgery 04/13/22 Darinel Sun PA-C [address] [place] [address] Specialist Neurosurgery 04/13/22 documented as of this encounter
--- OUTSIDE RECORDS SUMMARY | 2024-05-29 15:07 | XMS_ITS | Encounter Summary ---
Author Organization [facility] Address [address] [place] [address] Care Team Providers Care Music Library Assistant Name Role Phone Rosalino Jung MD Primary Care Provider Unava ilMika Maya DO Primary Care Provider Rabia jude Baig Pcp Primary Care Provider Jose E Vogt MD Primary Care Provider Unav Bharat Myers MD, PHD Unavailable Unava ilable Darinel Sun PA-C Unavailable [phone] Encounter Details Date Type Department Care Team Description 01/31/2020 Pt. Non Urgent Medic al Question Adult Medicine [address] [address] Rosalino Jung MD Social History Tobacco Use [...] as of this encounter Progress Notes * Yrn Berry M.A. - 01/31/2020 10:30 AM ESTFrom: Alejandro Caruso To: Rosalino Jung MD Sent: 01/31/2020 6:07 AM EST Subject: Back Pain Dr. Jung, I really need something to calm whatever is making my back hurt so much. I can handle pain but thisis out of control, my back spasms are now feeling like someone is stabbing me in my lower back., I have a follow up on the with Dr. Morillo. Could you please give me something for the next 6 days? Thanks in advance for all you do, and your staff has been on point and do a great job!! Sometimes all you need is a thank you!!!! So thank them for me if you remember. Alejandro Caruso documented in this encounter Plan of Treatment Not on file documented as of this encounter Visit Diagnoses Not on filedocumented in this encounter Care Teams Music Library Assistant Relationship Specialty Start Date End Date Rosalino Jung MD PCP - General Internal Medicine 11/11/17 07/21/20 Mika Le DO PCP - General Internal Medicine 07/22/[address] [place] [address] PCP - General Internal Medicine 12/01/20 03/22/22 Jose E Dye MD PCP - General Family Practice 03/23/22 Bharat Anand MD, PHD Surgeon Neurosurgery 04/13/22 Darinel Sun PA-C [address] [place] [address] [place] [address] Specialist Neurosurgery 04/13/22 documented as of this encounter
--- OUTSIDE RECORDS SUMMARY | 2024-05-29 15:07 | XMS_ITS | Encounter Summary ---
[facility] Organization [facility] Address [address] [place] [address] Care Team Providers Care Planning Division Superintendent Name Role Phone Rosalino Jung MD Primary Care Provider Unava Mika Lay DO Primary Care Provider Rabia Olaf Strauss Primary Care Provider Jose E Vogt MD Primary Care Provider Unav Bharat Myers MD, PHD Unavailable Unava ilDarinel Davis PA-C Unavailable [phone] Encounter Details Date Type Department Care Team Description 12/20/2019 Pt. Non Urgent Medic al Question Adult Medicine [address] [address] Rosalino Jung MD Social History Tobacco Use [...] on filedocumented in this encounter Care Teams Planning Division Superintendent Relationship Specialty Start Date End Date Rosalino Jung MD PCP - General Internal Medicine 11/11/17 07/21/20 Mika Le DO PCP - General Internal Medicine 07/22/[address] [place] [address] PCP - General Internal Medicine 12/01/20 03/22/22 Jose E Dye MD PCP - General Family Practice 03/23/22 Bharat Anand MD, PHD Surgeon Neurosurgery 04/13/22 Darinel Sun PA-C [address] [place] [address] Specialist Neurosurgery 04/13/22 documented as of this encounter
--- OUTSIDE RECORDS SUMMARY | 2024-05-29 15:08 | XMS_ITS | Encounter Summary ---
Author Organization [facility] Address [address] [place] [address] Care Team Providers Care Investigator Utility Bill Complaints Name Role Phone Rosalino Jung MD Primary Care Provider Unava Mika Lay DO Primary Care Provider Rabia jude Baig Pcp Primary Care Provider Jose E Vogt MD Primary Care Provider Unav Bharat Myers MD, PHD Unavailable Unava ilable Darinel Sun PA-C Unavailable [phone] Encounter Details Date Type Department Care Team Description 12/17/2019 Pt. Non Urgent Medic al Question Adult Medicine [address] [address] Rosalino Jung MD Social History Tobacco Use [...] Progress Notes * Carlos Lara M.A. - 12/17/2019 11:29 AM EDTFrom: Alejandro Paul Couture To: Rosalino Jung MD Sent: 12/17/2019 10:18 AM EDT Subject: [address] Jung, Amitriptyline 25 mg is working I guess, I take it before I go to bed and for the most part have been sleeping most nights. The other 2 scripts work when taking together. The Meloxicam you have it as needed so that doesn't work. Can I take that 3 times a day? Thanks for all you do Alejandro documented in this encounter Plan of Treatment Not on file documented as of this encounter Visit Diagnoses Not on filedocumented in this encounter Care Teams Investigator Utility Bill Complaints Relationship Specialty Start Date End Date Rosalino Jung MD PCP - General Internal Medicine 11/11/17 07/21/20 Mika Le DO PCP - General Internal Medicine 07/22/[address] [place] [address] PCP - General Internal Medicine 12/01/20 03/22/22 Jose E Dye MD PCP - General Family Practice 03/23/22 Bharat Anand MD, PHD Surgeon Neurosurgery 04/13/22 Darinel Sun PA-C [address] [place] [address] [place] [address] Specialist Neurosurgery 04/13/22 documented as of this encounter
--- OUTSIDE RECORDS SUMMARY | 2024-05-29 15:08 | XMS_ITS | Encounter Summary ---
Author Organization [facility] Address [address] [place] [address] Care Team Providers Care Scale Manager Name Role Phone Viv Kauffman MD Primary Care Provider UnavailRosalino Nava MD Primary Care Provider Unava Mika Lay DO Primary Care Provider Rabia [facility], Pcp Primary Care Provider UnavailJose E Miller MD Primary Care Provider Unav Bharat Myers MD, PHD Unavailable Unava Darinel Thomas PA-C Unavailable [phone] Encounter Details Date Type Department Care Team Description 07/08/2015 RESEARCH ADMINISTRATOR/Mass[employer] Report Medical Records [address] [place] [address] Abstract, Provider Social History Tobacco Use Types [...] on filedocumented in this encounter Care Teams Scale Manager Relationship Specialty Start Date End Date [...] PHD Surgeon Neurosurgery 04/13/22 Darinel Sun PA-C [address] [place] [address] Specialist Neurosurgery 04/13/22 documented as of this encounter
--- OUTSIDE RECORDS SUMMARY | 2024-05-29 15:08 | XMS_ITS | Encounter Summary ---
Author Organization [facility] Address [address] [place] [address] Care Team Providers Care Camera Maker Name Role Phone Rosalino Jung MD Primary Care Provider Unava Mika Lay DO Primary Care Provider Rabia jude Baig Pcp Primary Care Provider Jose E Vogt MD Primary Care Provider Unav Bharat Myers MD, PHD Unavailable Unava ilable Darinel Sun PA-C Unavailable [phone] Encounter Details Date Type Department Care Team Description 08/08/2018 Pt. Non Urgent Medic al Question Medicine/Pediatrics - [address] [address] Rosalino Jung MD Social History Tobacco Use [...] Progress Notes * Chioma Nuñez L.P.N. - 08/08/2018 10:12 AM EDTFrom: Alejandro Paul Couture To: Rosalino Jung MD Sent: 08/08/2018 10:08 AM EDT Subject: Gel Shots In Right Knee DR. Jung, I have to ask you again to reconsider increasing my Oxycodone to 20mg for 2 months do to the fact the gel shots didn't work. I had the 3 injections with the last one on the 16. I think I have done everything that has been asked of me, 1. PT 2. Knee scope 3. 10 MG Oxycodone 4. Aqua PT 5. Cortisone shots 6. [address] Riggs is planning on another surgery on my right knee to clean it out better, he said he seestorn meniscus and other thing floating around in there. This was all supposed to be fixed with my first operation. I just dont think I should suffer this bad for this long. Thanks for your time. Alejandro documented in this encounter Plan of Treatment Not on file documented as of this encounter Visit Diagnoses Not on filedocumented in this encounter Care Teams Camera Maker Relationship Specialty Start Date End Date Rosalino Jung MD PCP - General Internal Medicine 11/11/17 07/21/20 Mika Le DO PCP - General Internal Medicine 07/22/20 [facility] PCP - General Internal Medicine 12/01/20 03/22/22 Jose E Dye MD PCP - General Family Practice 03/23/22 Bharat Anand MD, PHD Surgeon Neurosurgery 04/13/22 Darinel Sun PA-C [address] [facility] [address] [place] [address] Specialist Neurosurgery 04/13/22 documented as of this encounter
--- OUTSIDE RECORDS SUMMARY | 2024-05-29 15:08 | XMS_ITS | Encounter Summary ---
Author Organization [facility] Address [address] [place] [address] Care Team Providers Care Composition Worker Name Role Phone Rosalino Jung MD Primary Care Provider Unava Mika Lay DO Primary Care Provider Rabia jude Baig Pcp Primary Care Provider Jose E Vogt MD Primary Care Provider Unav Bharat Myers MD, PHD Unavailable Unava ilable Darinel Sun PA-C Unavailable [phone] Encounter Details Date Type Department Care Team Description 03/29/2018 Recreation Director Report Medical Records [address] [place] [address] Tera Gordon MD [address] [place] [address] Social History Tobacco Use Types Packs/Day Years [...] on filedocumented in this encounter Care Teams Composition Worker Relationship Specialty Start Date End Date Rosalino Jung MD PCP - General Internal Medicine 11/11/17 07/21/20 Mika Le DO PCP - General Internal Medicine 07/22/20 [facility] PCP - General Internal Medicine 12/01/20 03/22/22 Jose E Dye MD PCP - General Family Practice 03/23/22 Bharat Anand MD, PHD Surgeon Neurosurgery 04/13/22 Darinel Sun PA-C [address] [place] [address] Specialist Neurosurgery 04/13/22 documented as of this encounter
--- OUTSIDE RECORDS SUMMARY | 2024-05-29 15:08 | XMS_ITS | Encounter Summary ---
Author Organization [facility] Address [address] [place] [address] Care Team Providers Care Window Sash Installer Name Role Phone Valentin Gaviria MD Primary Care Provider Unavail able Viv Kauffman MD Primary Care Provider Unavaila Rosalino Kirby MD Primary Care Provider Unava ilable Mika Le DO Primary Care Provider Rabia vailable [facility], Pcp Primary Care Provider UnavailJose E Miller MD Primary Care Provider Unav Bharat Myers MD, PHD Unavailable Unava ilable Darinel Sun PA-C Unavailable [phone] Encounter Details Date Type Department Care Team Description 05/03/2014 Pt. Non Urgent Medic al Question Adult Medicine [address] [address] Valentin Gaviria MD Social History Tobacco Use [...] as of this encounter Progress Notes * Leila Jade Rn - 05/03/2014 8:49 AM ESTFrom: Alejandro Caruso To: Valentin Gaviria MD Sent: 05/03/2014 7:03 AM EST Subject: Appointment with Noni Emma I received a message that I was a NO SHOW for my appointment on 04-30-13 with Noni. This appointment was for my anxiety and Panic Attacks. I called the [place] office and asked the molding machine operator how much would it cost me because I was having trouble with my insurance. The molding machine operator told me that I couldn't go to my appointment because I didn have insurance. She then spoke to her electrical & instrumentation supervisor about my situation and I got the same answer. I was willing to pay out of pocket because I really needa new prescription filled. I am very upset that they would consider me a NO SHOW when I followed your instructions. The lack of communication in your office is not only making me look like I just didn 't show up, it also is keeping me from getting the help I need for my Anxiety issues. documented in this encounter Plan of Treatment Not on file documented as of this encounter Visit Diagnoses Not on filedocumented in this encounter Care Teams Window Sash Installer Relationship Specialty Start Date End Date Valentin Gaviria MD PCP - General 06/28/00 01/16/15 Viv Kauffman MD PCP - General Internal Medicine 01/17/15 11/10/17 Rosalino Jung MD PCP - General Internal Medicine 11/11/17 07/21/20 Mika Le DO PCP - General Internal Medicine 07/22/[address] [place] [address] Pcp PCP - General Internal Medicine 12/01/20 03/22/22 Jose E Dye MD PCP - General Family Practice 03/23/22 Bharat Anand MD, PHD Surgeon Neurosurgery 04/13/22 Darinel Sun PA-C [address] [place] [address] [address] [place] [address] Specialist Neurosurgery 04/13/22 documented as of this encounter
--- OUTSIDE RECORDS SUMMARY | 2024-05-29 15:08 | XMS_ITS | Encounter Summary ---
Author Organization [facility] Address [address] [place] [address] Care Team Providers Care Career Technical Education Instructor Name Role Phone Rosalino Jung MD Primary Care Provider Unava Mika Lay DO Primary Care Provider Rabia jude Baig [facility] Primary Care Provider Jose E Vogt MD Primary Care Provider Unav Bharat Myers MD, PHD Unavailable Unava ilable Darinel Sun PA-C Unavailable [phone] Encounter Details Date Type Department Care Team Description 12/07/2018 Pt. Non Urgent Medic al Question Medicine/Pediatrics - [address] [address] Rosalino Jung MD Social History Tobacco Use [...] as of this encounter Progress Notes * Janett Dailey RN - 12/07/2018 11:29 AM EDTFrom: Alejandro A Shady To: Rosalino Jung MD Sent: 12/07/2018 10:54 AM EDT Subject: Left Hip Surgery DR Jung I sent in a refill request for the Oxycodone for you to approve or disapprove my pain level in my left hip is at a 10 just like the right one was until I got the operation. I will be out of their last prescription today and I don't want to miss a day do to the pain I'm in. If they are willing to give me another prescription we can just void yours. The reason for the request is if I wait until after my appointment today it will be to late for you too write one for today and I really don't want to go through the pain I did on my right hip before surgery. Thanks for your time. documented in this encounter Plan of Treatment Not on file documented as of this encounter Visit Diagnoses Not on filedocumented in this encounter Care Teams Career Technical Education Instructor Relationship Specialty Start Date End Date Rosalino Jung MD PCP - General Internal Medicine 11/11/17 07/21/20 Mika Le DO PCP - General Internal Medicine 07/22/[address] [place] [address] PCP - General Internal Medicine 12/01/20 03/22/22 Jose E Dye MD PCP - General Family Practice 03/23/22 Bharat Anand MD, PHD Surgeon Neurosurgery 04/13/22 Darinel Sun PA-C [address] [place] [address] [place] [address] Specialist Neurosurgery 04/13/22 documented as of this encounter
--- OUTSIDE RECORDS SUMMARY | 2024-05-29 15:08 | XMS_ITS | Encounter Summary ---
Author Organization [facility] Address [address] [place] [address] Care Team Providers Care Tank Cooper Name Role Phone Rosalino Jung MD Primary Care Provider Unava Mika Lay DO Primary Care Provider Rabia Olaf Strauss Primary Care Provider Jose E Vogt MD Primary Care Provider Bharat Last MD, PHD Unavailable Unava Darinel Thomas PA-C Unavailable [phone] Encounter Details Date Type Department Care Team Description 11/09/2018 Release of Information Medical Records [address] [place] [address] Abstract, Provider Social History Tobacco Use Types [...] on filedocumented in this encounter Care Teams Tank Cooper Relationship Specialty Start Date End Date Rosalino Jung MD PCP - General Internal Medicine 11/11/17 07/21/20 Mika Le DO PCP - General Internal Medicine 07/22/20 [facility] PCP - General Internal Medicine 12/01/20 03/22/22 Jose E Dye MD PCP - General Family Practice 03/23/22 Bharat Anand MD, PHD Surgeon Neurosurgery 04/13/22 Darinel Sun PA-C [address] [place] [address] Specialist Neurosurgery 04/13/22 documented as of this encounter
--- OUTSIDE RECORDS SUMMARY | 2024-05-29 15:08 | XMS_ITS | Encounter Summary ---
Author Organization [facility] Address [address] [place] [address] Care Team Providers Care Developmental Training Counselor Name Role Phone Valentin Gaviria MD Primary Care Provider Unavail able Viv Kauffman MD Primary Care Provider Unavaila Rosalino Kirby MD Primary Care Provider Unava ilable Mkia Le DO Primary Care Provider Rabia vailable [facility], Pcp Primary Care Provider UnavailJose E Miller MD Primary Care Provider Unav Bharat Myers MD, PHD Unavailable Unava ilable Darinel Sun PA-C Unavailable [phone] Encounter Details Date Type Department Care Team Description 03/06/2014 Tablet Making Machine Operator Helper Report Medical Records [address] [place] [address] [place] [address] [place], [place] [id number] Social History Tobacco Use Types Packs/Day Years [...] on filedocumented in this encounter Care Teams Developmental Training Counselor Relationship Specialty Start Date End Date Valentin Gaviria MD PCP - General 06/28/00 01/16/15 Viv Kauffman MD PCP - General Internal Medicine 01/17/15 11/10/17 Rosalino Jung MD PCP - General Internal Medicine 11/11/17 07/21/20 Mika Le DO PCP - General Internal Medicine 07/22/[address] [place] [address] PCP - General Internal Medicine 12/01/20 03/22/22 Jose E Dye MD PCP - General Family Practice 03/23/22 Bharat Anand MD, PHD Surgeon Neurosurgery 04/13/22 Darinel Sun PA-C [address] [place] [address] Specialist Neurosurgery 04/13/22 documented as of this encounter
--- OUTSIDE RECORDS SUMMARY | 2024-05-29 15:08 | XMS_ITS | Encounter Summary ---
[facility] Organization [facility] Address [address] [place] [address] Care Team Providers Care Waste Minimization Technician Name Role Phone Rosalino Jung MD Primary Care Provider Unava Mika Lay DO Primary Care Provider Rabia jude Baig Pcp Primary Care Provider Jose E Vogt MD Primary Care Provider Unav Bharat Myres MD, PHD Unavailable Unava ilable Darinel Sun PA-C Unavailable Encounter Details Date Type Department Care Team Description 11/08/2018 Pt. Non Urgent Medic al Question Medicine/Pediatrics - [address] [address] Rosalino Jung MD Social History Tobacco Use [...] Progress Notes * Janett Dailey RN - 11/09/2018 9:38 AM EDTFrom: Alejandro Belleture To: Rosalino Jung MD Sent: 11/08/2018 11:30 PM EDT Subject: 's Appointment DR. Jung, I apologize for having to reschedule this appointment but it took everything I had just to go to the [facility] today for my prescreening. If rescheduling is a huge problem for you then I will do what I have to so I make it just have someone call me in the AM. Maybe we should increase my doseback to 6 aday for 2 days or until I can see you. Sorry and thanks. Alejandro documented in this encounter Plan of Treatment Not on file documented as of this encounter Visit Diagnoses Not on filedocumented in this encounter Care Teams Waste Minimization Technician Relationship Specialty Start Date End Date Rosalino Jung MD PCP - General Internal Medicine 11/11/17 07/21/20 Mika Le DO PCP - General Internal Medicine 07/22/20 [facility] PCP - General Internal Medicine 12/01/20 03/22/22 Jose E Dye MD PCP - General Family Practice 03/23/22 Bharat Anand MD, PHD Surgeon Neurosurgery 04/13/22 Darinel Sun PA-C [address] [place] [address] Specialist Neurosurgery 04/13/22 documented as of this encounter
--- OUTSIDE RECORDS SUMMARY | 2024-05-29 15:08 | XMS_ITS | Encounter Summary ---
Author Organization [facility] Address [address] [place] [address] Care Team Providers Care Career Development Engineer Name Role Phone Valentin Gaviria MD Primary Care Provider Unavail able Viv Kauffman MD Primary Care Provider Unavaila Rosalino Kirby MD Primary Care Provider Unava ilable Mika Le DO Primary Care Provider Rabia vailable [facility], Pcp Primary Care Provider UnavailJose E Miller MD Primary Care Provider Unav Bharat Myers MD, PHD Unavailable Unava ilable Darinel Sun PA-C Unavailable [phone] Encounter Details Date Type Department Care Team Description 04/28/2014 Pt. Non Urgent Medic al Question Adult Medicine [address] [address] Valentin Gaviria MD Social History Tobacco Use [...] of this encounter Progress Notes * Chioma Strattner L.P.N. - 04/29/2014 10:56 AM ESTFrom: Alejandro Paul Shady To: Valentin Gaviria MD Sent: 04/28/2014 5:53 PM EST Subject: Anxiety-Panic Attacks Dr. Valentin Gaviria over the past few weeks my anxiety and panic Attacks have gotten worse. I am takingboth Anxiety medications as prescribed and increased the Sertraline as you requested. This is not working for me, could you please reconsider prescribing me Clonazepam for my Anxiety as this worked very well for me over the years I was taking Clonazepam. documented in this encounter Plan of Treatment Not on file documented as of this encounter Visit Diagnoses Not on filedocumented in this encounter Care Teams Career Development Engineer Relationship Specialty Start Date End Date Valentin Gaviria MD PCP - General 06/28/00 01/16/15 Viv Kauffman MD PCP - General Internal Medicine 01/17/15 11/10/17 Rosalino Jung MD PCP - General Internal Medicine 11/11/17 07/21/20 Mika Le DO PCP - General Internal Medicine 07/22/[address] [place] [address] PCP - General Internal Medicine 12/01/20 03/22/22 Jose E Dye MD PCP - General Family Practice 03/23/22 Bharat Anand MD, PHD Surgeon Neurosurgery 04/13/22 Darinel Sun PA-C [address] [place] [address] [place] [address] Specialist Neurosurgery 04/13/22 documented as of this encounter
--- OUTSIDE RECORDS SUMMARY | 2024-05-29 15:08 | XMS_ITS | Encounter Summary ---
[facility] Organization [facility] Address [address] [place] [address] Care Team Providers Care Outside Property Agent Name Role Phone Valentin Gaviria MD Primary Care Provider Unavail able Viv Kauffman MD Primary Care Provider Unavaila Rosalino Kirby MD Primary Care Provider Unava ilable Mika Le DO Primary Care Provider Rabia vailable [facility], Pcp Primary Care Provider UnavailJose E Miller MD Primary Care Provider Unav Bharat Myers MD, PHD Unavailable Unava ilable Darinel Sun PA-C Unavailable [phone] Encounter Details Date Type Department Care Team Description 01/12/2013 MEETING FACILITATOR/[place] Report Medical Records [address] [place] [address] Abstract, Provider Social History Tobacco Use Types [...] on filedocumented in this encounter Care Teams Outside Property Agent Relationship Specialty Start Date End Date Valentin Gaviria MD PCP - General 06/28/00 01/16/15 Vvi Kauffman MD PCP - General Internal Medicine 01/17/15 11/10/17 Rosalino Jung MD PCP - General Internal Medicine 11/11/17 07/21/20 Mika Le DO PCP - General Internal Medicine 07/22/20 [facility] PCP - General Internal Medicine 12/01/20 03/22/22 Jose E Dye MD PCP - General Family Practice 03/23/22 Bharat Anand MD, PHD Surgeon Neurosurgery 04/13/22 Darinel Sun PA-C [address] [place] [address] Specialist Neurosurgery 04/13/22 documented as of this encounter
--- OUTSIDE RECORDS SUMMARY | 2024-05-29 15:08 | XMS_ITS | Encounter Summary ---
Author Organization [facility] Address [address] [place] [address] Care Team Providers Care Embryology Teacher Name Role Phone Rosalino Jung MD Primary Care Provider Unava Mika Lay DO Primary Care Provider Rabai jude Baig [facility] Primary Care Provider Jose E Vogt MD Primary Care Provider Bharat Last MD, PHD Unavailable Unava Darinel Thomas PA-C Unavailable [phone] Encounter Details Date Type Department Care Team Description 02/08/2018 [place] Controlled Substance Contract Medical Records [address] [place] [address] Abstract, Provider Social History Tobacco Use Types [...] on filedocumented in this encounter Care Teams Embryology Teacher Relationship Specialty Start Date End Date Rosalino Jung MD PCP - General Internal Medicine 11/11/17 07/21/20 Mika Le DO PCP - General Internal Medicine 07/22/20 [facility] PCP - General Internal Medicine 12/01/20 03/22/22 Jose E Dye MD PCP - General Family Practice 03/23/22 Bharat Anand MD, PHD Surgeon Neurosurgery 04/13/22 Darinel Sun PA-C [address] [place] [address] Specialist Neurosurgery 04/13/22 documented as of this encounter
--- OUTSIDE RECORDS SUMMARY | 2024-05-29 15:08 | XMS_ITS | Encounter Summary ---
Author Organization [facility] Address [address] [place] [address] Care Team Providers Care Credit Checker Name Role Phone Viv Kauffman MD Primary Care Provider UnavailRosalino Nava MD Primary Care Provider Unava ilMika Maya DO Primary Care Provider Rabia [facility], Pcp Primary Care Provider UnavailJose E Miller MD Primary Care Provider Unav Bharat Myers MD, PHD Unavailable Unava ilDarinel Davis PA-C Unavailable [phone] Encounter Details Date Type Department Care Team Description 12/16/2016 Forepart Reducer Report Medical Records [address] [place] [id number] [place] [address] [place] [address] [id number] Social History Tobacco Use Types Packs/Day Years [...] on filedocumented in this encounter Care Teams Credit Checker Relationship Specialty Start Date End Date Viv Kauffman MD PCP - General Internal Medicine 01/17/15 11/10/17 Rosalino Jung MD PCP - General Internal Medicine 11/11/17 07/21/20 Mika Le DO PCP - General Internal Medicine 07/22/[address] [place] [address] PCP - General Internal Medicine 12/01/20 03/22/22 Jose E Dye MD PCP - General Family Practice 03/23/22 Bharat Anand MD, PHD Surgeon Neurosurgery 04/13/22 Darinel Sun PA-C [address] [place] [address] Specialist Neurosurgery 04/13/22 documented as of this encounter
--- OUTSIDE RECORDS SUMMARY | 2024-05-29 15:08 | XMS_ITS | Encounter Summary ---
Author Organization [facility] Address [address] [place] [address] Care Team Providers Care Electrical Cad Technician Name Role Phone Viv Kauffman MD Primary Care Provider Rosalino Dewey MD Primary Care Provider Unava Mika Lay DO Primary Care Provider Rabia jude [facility], Pcp Primary Care Provider UnavailJose E Miller MD Primary Care Provider Unav Bharat Myers MD, PHD Unavailable Unava ilDarinel Davis PA-C Unavailable [phone] Reason for Visit * Reason Onset Date Comments Medical Records 05/24/2017 Encounter Details Date Type Department Care Team Description 05/24/2017 Telephone Medicine/Pediatrics [address] [phone] Viv Kauffman MD Medical Records Social History Tobacco Use Types Packs/Day Years [...] encounter Miscellaneous Notes * Telephone Encounter - Talita aBiley - 05/24/2017 2:05 PM EST [facility] received for [facility] Faxed request to medical records Request in darrell folder at check in documented in this encounter Plan of Treatment Not on file documented as of this encounter Visit Diagnoses Not on filedocumented in this encounter Care Teams Electrical Cad Technician Relationship Specialty Start Date End Date Viv Kauffman MD PCP - General Internal Medicine 01/17/15 11/10/17 Rosalino Jung MD PCP - General Internal Medicine 11/11/17 07/21/20 Mika Le DO PCP - General Internal Medicine 07/22/[address] [place] [address] PCP - General Internal Medicine 12/01/20 03/22/22 Jose E Dye MD PCP - General Family Practice 03/23/22 Bharat Anand MD, PHD Surgeon Neurosurgery 04/13/22 Darinel Sun PA-C [address] [place] [address] Specialist Neurosurgery 04/13/22 documented as of this encounter
--- OUTSIDE RECORDS SUMMARY | 2024-05-29 15:08 | XMS_ITS | Encounter Summary ---
Author Organization [facility] Address [address] [place] [address] Care Team Providers Care Accounting Manager Name Role Phone Rosalino Jung MD Primary Care Provider Unava Mika Lay DO Primary Care Provider Rabia jude Baig [facility] Primary Care Provider Jose E Vogt MD Primary Care Provider UnaBharat Gomes MD, PHD Unavailable Unava Darinel Thomas PA-C Unavailable [phone] Encounter Details Date Type Department Care Team Description 11/22/2018 [facility] Medical Records [address] [place] [address] Petr Ritter MD Social History Tobacco Use [...] on filedocumented in this encounter Care Teams Accounting Manager Relationship Specialty Start Date End Date Rosalino Jung MD PCP - General Internal Medicine 11/11/17 07/21/20 Mika Le DO PCP - General Internal Medicine 07/22/20 [facility] PCP - General Internal Medicine 12/01/20 03/22/22 Jose E Dye MD PCP - General Family Practice 03/23/22 Bharat Anand MD, PHD Surgeon Neurosurgery 04/13/22 Darinel Sun PA-C [address] [place] [address] Specialist Neurosurgery 04/13/22 documented as of this encounter
--- OUTSIDE RECORDS SUMMARY | 2024-05-29 15:08 | XMS_ITS | Encounter Summary ---
[facility] Organization [facility] Address [address] [place] [address] Care Team Providers Care Application Support Developer Name Role Phone Mika Le DO Primary Care [facility] Primary Care Provider UnavailJose E Miller MD Primary Care Provider Unav ailBharat Seals MD, PHD Unavailable Unava ilDarinel Davis PA-C Unavailable [phone] Encounter Details Date Type Department Care Team Description 08/20/2020 Pt. Non Urgent Medic al Question Adult Medicine [address] [address] Mika Le DO Social History Tobacco Use [...] or suspected to have Coronavirus / COVID-19? Unable to assess 08/01/2020 12:48 PM EDT documented as of this encounter Miscellaneous Notes * Telephone Encounter - Kat Gorman M.A. - 08/20/2020 2:56 PM EDTFrom: Alejandro Caruso To: Geovanna Le Sent: 08/20/2020 2:54 PM EDT Subject: Father/Appointment DR. Le, I just wanted too let you know my Father Tuesday Morning 08-18-2020. I have been trying to make an appointment too see you as early as next week. I have called the office 3 different times and I'M on hold for 15-20 minuets and then the phone gores . I tried making one online but that didn't wor k as well. I will keep calling until I get in touch with someone. Also I will be requesting another prescription for the Prednisone, I will be out Tuesday the day of the wake and I really would like too be comfortable and not in so much pain. I understand if you don't want to until you see me documented in this encounter Plan of Treatment Not on file documented as of this encounter Visit Diagnoses Not on filedocumented in this encounter Care Teams Application Support Developer Relationship Specialty Start Date End Date Mika eL DO PCP - General Internal Medicine 07/22/[address] [place] [address] PCP - General Internal Medicine 12/01/20 03/22/22 Jose E Dye MD PCP - General Family Practice 03/23/22 Bharat Anand MD, PHD Surgeon Neurosurgery 04/13/22 Darinel Sun PA-C [address] [facility] [address] [place] [address] Specialist Neurosurgery 04/13/22 documented as of this encounter
--- OUTSIDE RECORDS SUMMARY | 2024-05-29 15:08 | XMS_ITS | Encounter Summary ---
Author Organization [facility] Address [address] [place] [address] Care Team Providers Care Web Application Developer Name Role Phone Rosalino Jung MD Primary Care Provider Unava Mika Lay DO Primary Care Provider Rabia jude Baig Pcp Primary Care Provider Jose E Vogt MD Primary Care Provider Unav Bharat Myers MD, PHD Unavailable Unava ilDarinel Davis PA-C Unavailable Encounter Details Date Type Department Care Team Description 07/26/2019 Telephone Medicine/Pediatrics [address] [phone] Rosalino Jung MD Social History Tobacco Use [...] on filedocumented in this encounter Care Teams Web Application Developer Relationship Specialty Start Date End Date Rosalino Jung MD PCP - General Internal Medicine 11/11/17 07/21/20 Mika Le DO PCP - General Internal Medicine 07/22/20 [facility] PCP - General Internal Medicine 12/01/20 03/22/22 Jose E Dye MD PCP - General Family Practice 03/23/22 Bharat Anand MD, PHD Surgeon Neurosurgery 04/13/22 Darinel Sun PA-C [address] [place] [address] Specialist Neurosurgery 04/13/22 documented as of this encounter
--- OUTSIDE RECORDS SUMMARY | 2024-05-29 15:08 | XMS_ITS | Encounter Summary ---
Author Organization [facility] Address [address] [place] [address] Care Team Providers Care Presales Consultant Name Role Phone Rosalino Jung MD Primary Care Provider Unava Mika Lay DO Primary Care Provider Rabia jude [facility] Primary Care Provider Jose E Vogt MD Primary Care Provider Unav Bharat Myers MD, PHD Unavailable Unava ilable Darinel Sun PA-C Unavailable [phone] Encounter Details Date Type Department Care Team Description 02/16/2018 Tempering Machine Operator Report Medical Records [address] [place] [address] Nan Shaikh NP Social History Tobacco Use Types Packs/Day Years [...] on filedocumented in this encounter Care Teams Presales Consultant Relationship Specialty Start Date End Date Rosalino Jung MD PCP - General Internal Medicine 11/11/17 07/21/20 Mika Le DO PCP - General Internal Medicine 07/22/20 [facility] PCP - General Internal Medicine 12/01/20 03/22/22 Jose E Dye MD PCP - General Family Practice 03/23/22 Bharat Anand MD, PHD Surgeon Neurosurgery 04/13/22 Darinel Sun PA-C [address] [place] [address] Specialist Neurosurgery 04/13/22 documented as of this encounter
--- OUTSIDE RECORDS SUMMARY | 2024-05-29 15:08 | XMS_ITS | Encounter Summary ---
Author Organization [facility] Address [address] [place] [address] Care Team Providers Care Saxophone Teacher Name Role Phone Rosalino Jung MD Primary Care Provider Unava Mika Lay DO Primary Care Provider Rabia jude Baig Pcp Primary Care Provider Jose E Vogt MD Primary Care Provider Unav Bharat Myers MD, PHD Unavailable Unava ilable Darinel Sun PA-C Unavailable [phone] Encounter Details Date Type Department Care Team Description [facility] [address] [address] Rosalino Jung MD Social History Tobacco Use [...] on filedocumented in this encounter Care Teams Saxophone Teacher Relationship Specialty Start Date End Date Rosalino Jung MD PCP - General Internal Medicine 11/11/17 07/21/20 Mika Le DO PCP - General Internal Medicine 07/22/20 [facility] PCP - General Internal Medicine 12/01/20 03/22/22 Jose E Dye MD PCP - General Family Practice 03/23/22 Bharat Anand MD, PHD Surgeon Neurosurgery 04/13/22 Darinel Sun PA-C [address] [place] [address] Specialist Neurosurgery 04/13/22 documented as of this encounter
--- OUTSIDE RECORDS SUMMARY | 2024-05-29 15:08 | XMS_ITS | Encounter Summary ---
Author Organization [facility] Address [address] [place] [address] Care Team Providers Care Client Service Professional Name Role Phone Valentin Gaviria MD Primary Care Provider Unavail able Viv Kauffman MD Primary Care Provider Unavaila Rosalino Kirby MD Primary Care Provider Unava ilable Mika Le DO Primary Care [facility] Primary Care Provider UnavailJose E Miller MD Primary Care Provider Unav Bharat Myers MD, PHD Unavailable Unava ilable Darinel Sun PA-C Unavailable [phone] Reason for Visit * Reason Onset Date Comments refill request 10/12/2012 Encounter Details Date Type Department Care Team Description 10/12/2012 Refill Medicine/Pediatrics [address] [phone] Valentin Gaviria MD refill request Social History Tobacco Use Types Packs/Day Years [...] Telephone Encounter - Leila Jade Rn - 10/12/2012 3:44 PM EDT Spoke to pt F/u appt booked, pt agreed, to time and date, Script in bin in triage for ppu * Telephone Encounter - Valentin Gaviria MD - 10/12/2012 3:34 PM EDT Prescription refilled but I want to see him back in about a month to discuss the slow taper of thismedication * Telephone Encounter - vIon Márquez M.A. - 10/12/2012 1:22 PM EDT Last OV 09/19/12 Controlled substance contract and last issue date of medication reviewed. Patient is due for medication. Component Value Date URINEOXYCOD POSITIVE 09/27/2012 URBENZO POSITIVE 09/27/2012 URAMPHETAMIN NEGATIVE 09/27/2012 URMARIJUANA NEGATIVE 09/27/2012 UROPIATES NEGATIVE 09/27/2012 URBARBITUATE NEGATIVE 09/27/2012 URCOCAINE NEGATIVE 09/27/2012 HYDROCODONE Negative 09/27/2012 * Telephone Encounter - Ricardo Singh - 10/12/2012 12:39 PM EDT WHEN WAS THE PATIENT'S LAST APPOINTMENT IN ADULT MEDICINE? [id number] WHEN WAS THE LAST TIME THE PATIENT SAW THEIR PCP? Same as above Does patient have an upcoming appointment? no (THE MEDICATION REQUESTED IS ON THE MED LIST ABOVE) All of the medications requested were on the CURRENT MEDS list Did you check the Pharmacy information above?: NO Patient wants: 30 -day supply Patient would like script to be: PLACED IN PATIENT TOOL SUPERVISOR Is this a mail order prescription request ? NO Indicate how soon the patient needs the script: BY THE END OF THE DAY Patients current insurance carrier is: Payor: [employer]EE[employer] Plan: PPO [id number] CARO [id number] Product Type: PPO [id number] documented in this encounter Plan of Treatment Not on file documented as of this encounter Visit Diagnoses Not on filedocumented in this encounter Care Teams Client Service Professional Relationship Specialty Start Date End Date Valentin Gaviria MD PCP - General 06/28/00 01/16/15 Viv Kauffman MD PCP - General Internal Medicine 01/17/15 11/10/17 Rosalino Jung MD PCP - General Internal Medicine 11/11/17 07/21/20 Mika Le DO PCP - General Internal Medicine 07/22/[address] [place] [address] PCP - General Internal Medicine 12/01/20 03/22/22 Jose E Dye MD PCP - General Family Practice 03/23/22 Bharat Anand MD, PHD Surgeon Neurosurgery 04/13/22 Darinel Sun PA-C [address] [place] [address] [place] [address] Specialist Neurosurgery 04/13/22 documented as of this encounter
--- OUTSIDE RECORDS SUMMARY | 2024-05-29 15:08 | XMS_ITS | Encounter Summary ---
[facility] Organization [facility] Address [address] [place] [address] Care Team Providers Care Senior Project Accountant Name Role Phone Rosalino Jung MD Primary Care Provider Unava Mika Lay DO Primary Care Provider Rabia jude Baig Pcp Primary Care Provider Jose E Vogt MD Primary Care Provider Unav Bharat Myers MD, PHD Unavailable Unava ilable Darinel Sun PA-C Unavailable [phone] Encounter Details Date Type Department Care Team Description 09/05/2018 Pt. Non Urgent Medic al Question Medicine/Pediatrics - [address] [phone] Rosalino Jung MD Social History Tobacco Use [...] Progress Notes * Chioma Nuñez L.P.N. - 09/05/2018 11:57 AM EDTFrom: Alejandro A Shady To: Rosalino Jung MD Sent: 09/05/2018 10:42 AM EDT Subject: Oxycodone Prescription DR. Jung, I requested a refill l on my Oxycodone 10mg and they denied it for some reason. My last prescription was for 20 mg and they only gave me enough for 3 weeks. I e-mailed you and asked if I could continue to take the 6 a day for the rest of that prescription, when I didn't hear back from you or anybody I took it that you agreed. Sorry for the misunderstanding but I will be out tomorrow morning and Icant just stop taking them or I will probably get sick. Please can you refill my script? All I did was take the medication as prescribed on the bottle. documented in this encounter Plan of Treatment Not on file documented as of this encounter Visit Diagnoses Not on filedocumented in this encounter Care Teams Senior Project Accountant Relationship Specialty Start Date End Date Rosalino Jung MD PCP - General Internal Medicine 11/11/17 07/21/20 Mika Le DO PCP - General Internal Medicine 07/22/[address] [place] [address] PCP - General Internal Medicine 12/01/20 03/22/22 Jose E Dye MD PCP - General Family Practice 03/23/22 Bharat Anand MD, PHD Surgeon Neurosurgery 04/13/22 Darinel Sun PA-C [address] [place] [address] [place] [address] Specialist Neurosurgery 04/13/22 documented as of this encounter
--- OUTSIDE RECORDS SUMMARY | 2024-05-29 15:08 | XMS_ITS | Encounter Summary ---
Author Organization [facility] Address [address] [place] [address] Care Team Providers Care Student Development Specialist Name Role Phone Rosalino Jung MD Primary Care Provider Unava Mika Lay DO Primary Care Provider Rabia Olaf Strauss Primary Care Provider Jose E Vogt MD Primary Care Provider UnaBharat Gomes MD, PHD Unavailable Unava Darinel Thomas PA-C Unavailable Encounter Details Date Type Department Care Team Description 09/11/2018 [facility] Medical Records [address] [place] [address] Abstract, Provider Social History Tobacco Use Types [...] on filedocumented in this encounter Care Teams Student Development Specialist Relationship Specialty Start Date End Date Rosalino Jung MD PCP - General Internal Medicine 11/11/17 07/21/20 Mika Le DO PCP - General Internal Medicine 07/22/20 [facility] PCP - General Internal Medicine 12/01/20 03/22/22 Jose E Dye MD PCP - General Family Practice 03/23/22 Bharat Anand MD, PHD Surgeon Neurosurgery 04/13/22 Darinel Sun PA-C [address] [place] [address] Specialist Neurosurgery 04/13/22 documented as of this encounter
--- OUTSIDE RECORDS SUMMARY | 2024-05-29 15:08 | XMS_ITS | Encounter Summary ---
Author Organization [facility] Address [address] [place] [address] Care Team Providers Care Scouring Machine Tender Name Role Phone Rosalino Jung MD Primary Care Provider Unava Mika Lay DO Primary Care Provider Rabia Olaf Strauss Primary Care Provider Jose E Vogt MD Primary Care Provider UnaBharat Gomes MD, PHD Unavailable Unava Darinel Thomas PA-C Unavailable [phone] Encounter Details Date Type Department Care Team Description 04/03/2018 [facility] Medical Records [address] [place] [address] Abstract, Provider Social History Tobacco Use Types [...] on filedocumented in this encounter Care Teams Scouring Machine Tender Relationship Specialty Start Date End Date Rosalino Jung MD PCP - General Internal Medicine 11/11/17 07/21/20 Mika Le DO PCP - General Internal Medicine 07/22/20 [facility] PCP - General Internal Medicine 12/01/20 03/22/22 Jose E Dye MD PCP - General Family Practice 03/23/22 Bharat Anand MD, PHD Surgeon Neurosurgery 04/13/22 Darinel Sun PA-C [address] [place] [address] Specialist Neurosurgery 04/13/22 documented as of this encounter
--- OUTSIDE RECORDS SUMMARY | 2024-05-29 15:08 | XMS_ITS | Encounter Summary ---
Author Organization [facility] Address [address] [place] [address] Care Team Providers Care Fire Extinguisher Charger Name Role Phone Rosalino Jung MD Primary Care Provider Unava Mkia Lay DO Primary Care Provider Rabia jude Baig [facility] Primary Care Provider Jose E Vogt MD Primary Care Provider Unav Bharat Myers MD, PHD Unavailable Unava ilable Darinel Sun PA-C Unavailable Encounter Details Date Type Department Care Team Description 05/18/2019 Orders Only Medical Records [address] [place] [address] Lois Stephens MD [address] [place] [address] Social History Tobacco Use Types Packs/Day Years [...] as of this encounter Progress Notes * Dennis Stephens MD - 05/27/2019 7:02 PM EDT Dear Alejandro, The polyp(s) that were removed during your colonoscopy were precancerous, but benign. Fortunately, we removed them and therefore, they will not cause any more problems in the future. Based on the number, the size, and the features of the polyp(s) removed, I recommend a follow-up colonoscopy in 3 years. Before, the 3 years are due, we will send you a reminder in the mail asking you to contact our office to have the colonoscopy scheduled. I would like to personally thank you for allowing us to take care of you. Please don't hesitate to call us for any questions or concerns. Regards, Rene Stephens MD Board Certified Gastroenterology and Internal Medicine Transplant Hepatology [facility] documented in this encounter Plan of Treatment Not on file documented as of this encounter Procedures Procedure Name Priority Date/Time Associated Diagnosis Comments OUTSIDE PATHOLOGY Routine 05/16/2019 documented in this encounter Results * OUTSIDE PATHOLOGY (05/16/2019) Lois Stephens MD OUTSIDE LAB documented in this encounter Visit Diagnoses Not on filedocumented in this encounter Care Teams Fire Extinguisher Charger Relationship Specialty Start Date End Date Rosalino Jung MD PCP - General Internal Medicine 11/11/17 07/21/20 Mika Le DO PCP - General Internal Medicine 07/22/[address] [place] [address] PCP - General Internal Medicine 12/01/20 03/22/22 Jose E Dye MD PCP - General Family Practice 03/23/22 Bharat Anand MD, PHD Surgeon Neurosurgery 04/13/22 Darinel Sun PA-C [address] [place] [address] [place] [address] Specialist Neurosurgery 04/13/22 documented as of this encounter
--- OUTSIDE RECORDS SUMMARY | 2024-05-29 15:08 | XMS_ITS | Encounter Summary ---
Author Organization [facility] Address [address] [place] [address] Care Team Providers Care Ferry Engineer Name Role Phone Valentin Gaviria MD Primary Care Provider Unavail able Viv Kauffman MD Primary Care Provider Unavaila Rosalino Kirby MD Primary Care Provider Unava ilable Mika Le DO Primary Care Provider Rabia vailable [facility], Pcp Primary Care Provider UnavailJose E Miller MD Primary Care Provider Unav Bharat Myers MD, PHD Unavailable Unava ilable Darinel Sun PA-C Unavailable [phone] Encounter Details Date Type Department Care Team Description 06/28/2013 Hospital Medical Records [address] [place] [address] Jonathon Patton MD Social History Tobacco Use Types Packs/Day [...] on filedocumented in this encounter Care Teams Ferry Engineer Relationship Specialty Start Date End Date Valentin Gaviria MD PCP - General 06/28/00 01/16/15 Viv Kauffman MD PCP - General Internal Medicine 01/17/15 11/10/17 Rosalino Jung MD PCP - General Internal Medicine 11/11/17 07/21/20 Mika Le DO PCP - General Internal Medicine 07/22/[address] [place] [address] PCP - General Internal Medicine 12/01/20 03/22/22 Jose E Dye MD PCP - General Family Practice 03/23/22 Bharat Anand MD, PHD Surgeon Neurosurgery 04/13/22 Darinel Sun PA-C [address] [place] [address] Specialist Neurosurgery 04/13/22 documented as of this encounter
--- OUTSIDE RECORDS SUMMARY | 2024-05-29 15:08 | XMS_ITS | Encounter Summary ---
[facility] Organization [facility] Address [address] [place] [address] Care Team Providers Care Agronomy Supervisor Name Role Phone Rosalino Jung MD Primary Care Provider Unava Mika Lay DO Primary Care Provider Rabia jude Baig Pcp Primary Care Provider Jose E Vogt MD Primary Care Provider Unav Bharat Myers MD, PHD Unavailable Unava ilable Darinel Sun PA-C Unavailable Encounter Details Date Type Department Care Team Description 11/28/2019 Pt. Non Urgent Medic al Question Adult Medicine [address] [address] Rosalino Jung MD Social History Tobacco Use [...] Progress Notes * Ivon Márquez M.A. - 11/28/2019 1:08 PM EDT See mychart message * Ivon Márquez M.A. - 11/28/2019 1:08 PM EDTFrom: Alejandro Caruso To: Rosalino Jung MD Sent: 11/28/2019 12:37 PM EDT Subject: Pain Mgmt Dr. Jung, They moved my appointment until Tuesday and I cant see you until 12-23. Could you please prescribe me something to calm this back down? documented in this encounter Plan of Treatment Not on file documented as of this encounter Visit Diagnoses Not on filedocumented in this encounter Care Teams Agronomy Supervisor Relationship Specialty Start Date End Date Rosalino Jung MD PCP - General Internal Medicine 11/11/17 07/21/20 Mika Le DO PCP - General Internal Medicine 07/22/[address] [place] [address] PCP - General Internal Medicine 12/01/20 03/22/22 Jose E Dye MD PCP - General Family Practice 03/23/22 Bharat Anand MD, PHD Surgeon Neurosurgery 04/13/22 Darinel Sun PA-C [address] [place] [address] [place] [address] Specialist Neurosurgery 04/13/22 documented as of this encounter
--- OUTSIDE RECORDS SUMMARY | 2024-05-29 15:08 | XMS_ITS | Encounter Summary ---
Author Organization [facility] Address [address] [place] [address] Care Team Providers Care Graphic Art Sales Representative Name Role Phone Viv Kauffman MD Primary Care Provider UnavailRosalino Nava MD Primary Care Provider Unava Mika Lay DO Primary Care Provider Rabia [facility], Pcp Primary Care Provider UnavailJose E Miller MD Primary Care Provider Unav Bharat Myers MD, PHD Unavailable Unava Darinel Thomas PA-C Unavailable Encounter Details Date Type Department Care Team Description 07/24/2015 Release of Information Medical Records [address] [place] [id number] Abstract, Provider Social History Tobacco Use Types [...] on filedocumented in this encounter Care Teams Graphic Art Sales Representative Relationship Specialty Start Date End Date Viv [...] PHD Surgeon Neurosurgery 04/13/22 Darinel Sun PA-C [address] [place] [address] Specialist Neurosurgery 04/13/22 documented as of this encounter
--- OUTSIDE RECORDS SUMMARY | 2024-05-29 15:08 | XMS_ITS | Encounter Summary ---
Author Organization [facility] Address [address] [place] [address] Care Team Providers Care Machine Maintenance Servicer Name Role Phone Valentin Gaviria MD Primary Care Provider Unavail able Viv Kauffman MD Primary Care Provider Unavaila Rosalino Kirby MD Primary Care Provider Unava ilable Mika Le DO Primary Care Provider Rabia vailable [facility], Pcp Primary Care Provider UnavailJose E Miller MD Primary Care Provider Unav Bharat Myers MD, PHD Unavailable Unava ilable Darinel Sun PA-C Unavailable [phone] Encounter Details Date Type Department Care Team Description 09/28/2012 Transfer Records Medical Records [address] [place] [id number] Abstract, Provider Social History Tobacco Use Types [...] on filedocumented in this encounter Care Teams Machine Maintenance Servicer Relationship Specialty Start Date End Date Valentin Gaviria MD PCP - General 06/28/00 01/16/15 Viv Kauffman MD PCP - General Internal Medicine 01/17/15 11/10/17 Rosalino Jung MD PCP - General Internal Medicine 11/11/17 07/21/20 Mika Le DO PCP - General Internal Medicine 07/22/[address] [place] [address] PCP - General Internal Medicine 12/01/20 03/22/22 Jose E Dye MD PCP - General Family Practice 03/23/22 Bharat Anand MD, PHD Surgeon Neurosurgery 04/13/22 Darinel Sun PA-C [address] [place] [address] Specialist Neurosurgery 04/13/22 documented as of this encounter
--- OUTSIDE RECORDS SUMMARY | 2024-05-29 15:08 | XMS_ITS | Encounter Summary ---
Author Organization [facility] Address [address] [place] [address] Care Team Providers Care Absence Management Consultant Name Role Phone Mika Le DO Primary Care Provider Rabia vailable [facility], Pcp Primary Care Provider Jose E Vogt MD Primary Care Provider Unav ailable Bharat Anand MD, PHD Unavailable Unava ilDarinel Davis PA-C Unavailable [phone] Reason for Referral * EXTERNAL (Priority) - Authorized/Booked Specialty Diagnoses / Procedures Referred By Contact Referred To Contact Otolaryngology / EarNoseThroat Procedures REFERRAL TO EAR, NOSE & THROAT Ida Leon NP [address] [place] [address] External Ent Referral ID Status Reason Start Date Expiration Date V isits Requested Visits Authorized [id number] Authorized/B ooked 09/19/2020 12/26/2020 1 1 Encounter Details Date Type Department Care Team Description 09/05/2020 Pt. Non Urgent Medic al Question Adult Medicine [address] [address] Mika Le DO Social History Tobacco Use [...] Telephone Encounter - Kat Gorman M.A. - 09/05/2020 11:11 AM EDTFrom: Alejandro Caruso To: Geovanna Le Sent: 09/05/2020 9:49 AM EDT Subject: Tinnitus/Vertigo Dr. Le, I went too EYE[facility] yesterday and they put me though a few sound exercises and when the person was done they sent me to the doctor and she said everything looks good, the ringing in my earsis worse then it was before the doctors appointment. Could you please refer me somewhere else because the ri nging in my ears are driving me crazy. Thanks for your time, Alejandro Caruso documented in this encounter Plan of Treatment Not on file documented as of this encounter Visit Diagnoses Not on filedocumented in this encounter Care Teams Absence Management Consultant Relationship Specialty Start Date End Date Mika Le DO PCP - General Internal Medicine 07/22/[address] [place] [address] PCP - General Internal Medicine 12/01/20 03/22/22 Jose E Dye MD PCP - General Family Practice 03/23/22 Bharat Anand MD, PHD Surgeon Neurosurgery 04/13/22 Darinel Sun PA-C [address] [place] [address] [place] [address] Specialist Neurosurgery 04/13/22 documented as of this encounter
--- OUTSIDE RECORDS SUMMARY | 2024-05-29 15:08 | XMS_ITS | Encounter Summary ---
Author Organization [facility] Address [address] [place] [address] Care Team Providers Care Heel Brusher Name Role Phone Rosalino Jung MD Primary Care Provider Unava Mika Lay DO Primary Care Provider Rabia Olaf Strauss Primary Care Provider Jose E Vogt MD Primary Care Provider Bharat Last MD, PHD Unavailable Unava Darinel Thomas PA-C Unavailable [phone] Encounter Details Date Type Department Care Team Description 03/23/2018 Transfer Records Medical Records [address] [place] [address] Abstract, Provider Social History Tobacco Use Types [...] on filedocumented in this encounter Care Teams Heel Brusher Relationship Specialty Start Date End Date Rosalino Jung MD PCP - General Internal Medicine 11/11/17 07/21/20 Mika Le DO PCP - General Internal Medicine 07/22/[address] [place] [address] PCP - General Internal Medicine 12/01/20 03/22/22 Jose E Dye MD PCP - General Family Practice 03/23/22 Bharat Anand MD, PHD Surgeon Neurosurgery 04/13/22 Darinel Sun PA-C [address] [place] [address] Specialist Neurosurgery 04/13/22 documented as of this encounter
--- OUTSIDE RECORDS SUMMARY | 2024-05-29 15:08 | XMS_ITS | Encounter Summary ---
Author Organization [facility] Address [address] [place] [address] Care Team Providers Care Learning Development Specialist Name Role Phone Rosalino Jung MD Primary Care Provider Unava Mika Lay DO Primary Care Provider Rabia jude Baig Pcp Primary Care Provider Jose E Vogt MD Primary Care Provider Unav Bharat Myers MD, PHD Unavailable Unava ilable Darinel Sun PA-C Unavailable [phone] Encounter Details Date Type Department Care Team Description 02/03/2018 Telephone Medicine/Pediatrics - [address] [phone] Rosalino Jung MD Social History Tobacco Use [...] Telephone Encounter - Rosalino Jung MD - 02/03/2018 9:02 AM EST Nurse triage: at appt 02/02/18, we increased oxycodone to 20mg TID. He will run out of his most recent script early to mid next week as he is going to be taking two 10mg tabs TID. New CSC signed. He will call for script refill earlier than would have been expected, is ok to fill based on this increase. Let me know if questions, thanks documented in this encounter Plan of Treatment Not on file documented as of this encounter Visit Diagnoses Not on filedocumented in this encounter Care Teams Learning Development Specialist Relationship Specialty Start Date End Date Rosalino Jung MD PCP - General Internal Medicine 11/11/17 07/21/20 Mika Le DO PCP - General Internal Medicine 07/22/[address] [place] [address] PCP - General Internal Medicine 12/01/20 03/22/22 Jose E Dye MD PCP - General Family Practice 03/23/22 Bharat Anand MD, PHD Surgeon Neurosurgery 04/13/22 Darinel Sun PA-C [address] [place] [address] [place] [address] Specialist Neurosurgery 04/13/22 documented as of this encounter
--- OUTSIDE RECORDS SUMMARY | 2024-05-29 15:08 | XMS_ITS | Encounter Summary ---
Author Organization [facility] Address [address] [place] [address] Care Team Providers Care Health Information Systems Technician Name Role Phone Rosalino Jung MD Primary Care Provider Unava Mika Lay DO Primary Care Provider Rabia jude Baig [facility] Primary Care Provider Jose E Vogt MD Primary Care Provider UnaBharat Gomes MD, PHD Unavailable Unava Darinel Thomas PA-C Unavailable [phone] Encounter Details Date Type Department Care Team Description 10/09/2018 Service Cashier Report Medical Records [address] [place] [address] Petr Ritter MD Social History Tobacco Use [...] on filedocumented in this encounter Care Teams Health Information Systems Technician Relationship Specialty Start Date End Date Rosalino Jung MD PCP - General Internal Medicine 11/11/17 07/21/20 Mika Le DO PCP - General Internal Medicine 07/22/20 [facility] PCP - General Internal Medicine 12/01/20 03/22/22 Jose E Dye MD PCP - General Family Practice 03/23/22 Bharat Anand MD, PHD Surgeon Neurosurgery 04/13/22 Darinel Sun PA-C [address] [place] [address] Specialist Neurosurgery 04/13/22 documented as of this encounter
--- OUTSIDE RECORDS SUMMARY | 2024-05-29 15:08 | XMS_ITS | Encounter Summary ---
Author Organization [facility] Address [address] [place] [address] Care Team Providers Care Sugar Mixer Name Role Phone Rosalino Jung MD Primary Care Provider Unava Mika Lay DO Primary Care Provider Rabia jude Baig Pcp Primary Care Provider Jose E Vogt MD Primary Care Provider Unav Bharat Myers MD, PHD Unavailable Unava ilable Darinel Sun PA-C Unavailable [phone] Encounter Details Date Type Department Care Team Description 07/31/2019 Pt. Non Urgent Medic al Question Adult Medicine [address] [address] Rosalino Jung MD Social History Tobacco Use [...] Progress Notes * Chioma Nuñez L.P.N. - 07/31/2019 1:15 PM EDTFrom: Alejandro Caruso To: Rosalino Jung MD Sent: 07/31/2019 12:42 PM EDT Subject: X-RAYS Dr. Jung, When do you expect the results? THANKS IN ADVANCE Alejandro documented in this encounter Plan of Treatment Not on file documented as of this encounter Visit Diagnoses Not on filedocumented in this encounter Care Teams Sugar Mixer Relationship Specialty Start Date End Date Rosalino Jung MD PCP - General Internal Medicine 11/11/17 07/21/20 Mika Le DO PCP - General Internal Medicine 07/22/[address] [place] [address] PCP - General Internal Medicine 12/01/20 03/22/22 Jose E Dye MD PCP - General Family Practice 03/23/22 Bharat Anand MD, PHD Surgeon Neurosurgery 04/13/22 Darinel Sun PA-C [address] [place] [address] Specialist Neurosurgery 04/13/22 documented as of this encounter
--- OUTSIDE RECORDS SUMMARY | 2024-05-29 15:08 | XMS_ITS | Encounter Summary ---
Author Organization [facility] Address [address] [place] [address] Care Team Providers Care Chocolate Production Machine Operator Name Role Phone Rosalino Jung MD Primary Care Provider Unava Mika Lay DO Primary Care Provider Rabia jude Baig [facility] Primary Care Provider Jose E Vogt MD Primary Care Provider Unav Bharat Myers MD, PHD Unavailable Unava ilDarinel Davis PA-C Unavailable [phone] Encounter Details Date Type Department Care Team Description 11/24/2018 [facility] Medical Records [address] [place] [address] Viv Kauffman MD Social History Tobacco Use [...] on filedocumented in this encounter Care Teams Chocolate Production Machine Operator Relationship Specialty Start Date End Date Rosalino Jung MD PCP - General Internal Medicine 11/11/17 07/21/20 Mika Le DO PCP - General Internal Medicine 07/22/20 [facility] PCP - General Internal Medicine 12/01/20 03/22/22 Jose E Dye MD PCP - General Family Practice 03/23/22 Bharat Anand MD, PHD Surgeon Neurosurgery 04/13/22 Darinel Sun PA-C [address] [place] [address] Specialist Neurosurgery 04/13/22 documented as of this encounter
--- OUTSIDE RECORDS SUMMARY | 2024-05-29 15:08 | XMS_ITS | Encounter Summary ---
Author Organization [facility] Address [address] [place] [address] Care Team Providers Care Popcorn Candy Maker Name Role Phone Valentin Gaviria MD Primary Care Provider Unavail able Viv Kauffman MD Primary Care Provider Unavaila Rosalino Kirby MD Primary Care Provider Unava ilable Mika Le DO Primary Care Provider Rabia vailable [facility], Pcp Primary Care Provider UnavailJose E Miller MD Primary Care Provider Unav Bharat Myers MD, PHD Unavailable Unava ilable Darinel Sun PA-C Unavailable [phone] Encounter Details Date Type Department Care Team Description 01/10/2013 Controlled Substance Plan Medical Records [address] [place] [address] Abstract, Provider Social History Tobacco Use Types [...] on filedocumented in this encounter Care Teams Popcorn Candy Maker Relationship Specialty Start Date End Date Valentin Gaviria MD PCP - General 06/28/00 01/16/15 Viv Kauffman MD PCP - General Internal Medicine 01/17/15 11/10/17 Rosalino Jung MD PCP - General Internal Medicine 11/11/17 07/21/20 Mika Le DO PCP - General Internal Medicine 07/22/20 [facility] PCP - General Internal Medicine 12/01/20 03/22/22 Jose E Dye MD PCP - General Family Practice 03/23/22 Bharat Anand MD, PHD Surgeon Neurosurgery 04/13/22 Darinel Sun PA-C [address] [place] [address] Specialist Neurosurgery 04/13/22 documented as of this encounter
--- OUTSIDE RECORDS SUMMARY | 2024-05-29 15:08 | XMS_ITS | Encounter Summary ---
Author Organization [facility] Address [address] [place] [address] Care Team Providers Care Senior Java Developer Name Role Phone Juan Jung MD Primary Care Provider Unava Mika Lay DO Primary Care Provider Rabia jude Baig Pcp Primary Care Provider Jose E Vogt MD Primary Care Provider Unav Bharat Myers MD, PHD Unavailable Unava ilable Darinel Sun PA-C Unavailable [phone] Encounter Details Date Type Department Care Team Description 04/14/2018 Refill Medicine/Pediatrics [address] [address] Juan Jung MD Social History Tobacco Use Types [...] encounter Miscellaneous Notes * Telephone Encounter - Sary Truong M.A. - 04/14/2018 11:36 AM EST Paxer message sent to pt. * Telephone Encounter - Sary Truong M.A. - 04/14/2018 11:33 AM ESTFrom: Alejandro Caruso To: Juan Jung MD Sent: 04/14/2018 10:05 AM EST Subject: Medication Renewal Request Original authorizing provider: MD Alejandro CHÁVEZ would like a refill of the following medications: amlodipine (NORVASC) 5 MG tablet [JUAN JUNG MD] Preferred pharmacy: [id number] [place] [address] Comment: DR. Jung, [facility] just sent me an email saying that my doctor didn't authorize the refill of Amlodipine that I requested earlier this week. Could someone please check into this? Thank you, Alejandro documented in this encounter Plan of Treatment Not on file documented as of this encounter Visit Diagnoses Diagnosis Essential hypertension Unspecified essential hypertension documented in this encounter Care Teams Senior Java Developer Relationship Specialty Start Date End Date Juan Jung MD PCP - General Internal Medicine 11/11/17 07/21/20 Mika Le DO PCP - General Internal Medicine 07/22/[address] [place] [address] PCP - General Internal Medicine 12/01/20 03/22/22 Jose E Dye MD PCP - General Family Practice 03/23/22 Bharat Anand MD, PHD Surgeon Neurosurgery 04/13/22 Darinel Sun PA-C [address] [place] [address] Specialist Neurosurgery 04/13/22 documented as of this encounter
--- OUTSIDE RECORDS SUMMARY | 2024-05-29 15:08 | XMS_ITS | Encounter Summary ---
Author Organization [facility] Address [address] [place] [address] Care Team Providers Care Human Resources Consultant Name Role Phone Rosalino Jung MD Primary Care Provider Unava Mika Lay DO Primary Care Provider Rabia jude Baig [facility] Primary Care Provider Jose E Vogt MD Primary Care Provider UnaBharat Gomes MD, PHD Unavailable Unava Darinel Thomas PA-C Unavailable [phone] Encounter Details Date Type Department Care Team Description 09/18/2018 Tower Control Operator Report Medical Records [address] [place] [address] Petr Ritter MD Social History Tobacco Use [...] on filedocumented in this encounter Care Teams Human Resources Consultant Relationship Specialty Start Date End Date Rosalino Jung MD PCP - General Internal Medicine 11/11/17 07/21/20 Mika Le DO PCP - General Internal Medicine 07/22/20 [facility] PCP - General Internal Medicine 12/01/20 03/22/22 Jose E Dye MD PCP - General Family Practice 03/23/22 Bharat Anand MD, PHD Surgeon Neurosurgery 04/13/22 Darinel Sun PA-C [address] [place] [address] Specialist Neurosurgery 04/13/22 documented as of this encounter
--- OUTSIDE RECORDS SUMMARY | 2024-05-29 15:08 | XMS_ITS | Encounter Summary ---
Author Organization [facility] Address [address] [place] [address] Care Team Providers Care Clinical Investigator Name Role Phone Viv Kauffman MD Primary Care Provider UnavailRosalino Nava MD Primary Care Provider Unava Mika Lay DO Primary Care Provider [facility], Pcp Primary Care Provider UnavailJose E Miller MD Primary Care Provider Unav Bharat Myers MD, PHD Unavailable Unava Darinel Thomas PA-C Unavailable [phone] Encounter Details Date Type Department Care Team Description 06/09/2015 Storage Wharfage Clerk Report Medical Records [address] [place] [address] Darinel Campbell DO Social History Tobacco Use Types Packs/Day [...] filedocumented in this encounter Care Teams Clinical Investigator Relationship Specialty Start Date End Date Viv [...] Surgeon Neurosurgery 04/13/22 Darinel Sun PA-C [address] [place] [address] Specialist Neurosurgery 04/13/22 documented as of this encounter
--- OUTSIDE RECORDS SUMMARY | 2024-05-29 15:08 | XMS_ITS | Encounter Summary ---
Author Organization [facility] Address [address] [place] [address] Care Team Providers Care Service Coordinator Elderly Facility Name Role Phone Mika Le DO Primary Care [facility] Primary Care Provider Jose E Vogt MD Primary Care Provider Unav Bharat Myers MD, PHD Unavailable Unava ilDarinel Davis PA-C Unavailable Reason for Visit * Reason Onset Date Comments Chronic Pain 08/13/2020 Encounter Details Date Type Department Care Team Description 08/13/2020 Telephone Adult [address] [address] Mika Le DO Chronic Pain Social History Tobacco Use Types Packs/Day Years [...] encounter Miscellaneous Notes * Telephone Encounter - Megan Fuller R.N. - 08/13/2020 2:10 PM EDT Pt is requesting prednisone for his pain. He would like you to refill whatever medications you can. Pt states he cancelled appt yesterday because his father is dying of cancer and he needs to take care of him. Please advise * Telephone Encounter - Claudia Reveles M.A. - 08/13/2020 1:47 PM EDT Pt has appt today with Dr. Le appt was cancelled, pt asking for pain medication documented in this encounter Plan of Treatment Not on file documented as of this encounter Visit Diagnoses Not on filedocumented in this encounter Care Teams Service Coordinator Elderly Facility Relationship Specialty Start Date End Date Mika Le DO PCP - General Internal Medicine 07/22/20 [facility] PCP - General Internal Medicine 12/01/20 03/22/22 Jose E Dye MD PCP - General Family Practice 03/23/22 Bharat Anand MD, PHD Surgeon Neurosurgery 04/13/22 Darinel Sun PA-C [address] [place] [address] [place] [address] Specialist Neurosurgery 04/13/22 documented as of this encounter
--- OUTSIDE RECORDS SUMMARY | 2024-05-29 15:08 | XMS_ITS | Encounter Summary ---
[facility] Organization [facility] Address [address] [place] [address] Care Team Providers Care Product Ambassador Name Role Phone Rosalino Jung MD Primary Care Provider Unava Mika Lay DO Primary Care Provider Rabia Olaf Strauss Primary Care Provider Jose E Vogt MD Primary Care Provider Unav Bharat Myers MD, PHD Unavailable Unava Darinel Thomas PA-C Unavailable [phone] Encounter Details Date Type Department Care Team Description 08/03/2018 Loan Servicing Representative Report Medical Records [address] [place] [address] Valentin Riggs Social History Tobacco Use Types Packs/Day Years [...] on filedocumented in this encounter Care Teams Product Ambassador Relationship Specialty Start Date End Date Rosalino Jung MD PCP - General Internal Medicine 11/11/17 07/21/20 Mika Le DO PCP - General Internal Medicine 07/22/20 [facility] PCP - General Internal Medicine 12/01/20 03/22/22 Jose E Dye MD PCP - General Family Practice 03/23/22 Bharat Anand MD, PHD Surgeon Neurosurgery 04/13/22 Darinel Sun PA-C [address] [place] [address] Specialist Neurosurgery 04/13/22 documented as of this encounter
--- OUTSIDE RECORDS SUMMARY | 2024-05-29 15:08 | XMS_ITS | Encounter Summary ---
Author Organization [facility] Address [address] [place] [address] Care Team Providers Care Professional Wrestler Name Role Phone Mika Le DO Primary Care Provider [facility] Primary Care Provider UnavailJose E Miller MD Primary Care Provider Unav ailBharat Seals MD, PHD Unavailable Unava ilDarinel Davis PA-C Unavailable [phone] Encounter Details Date Type Department Care Team Description 08/15/2020 Pt. Non Urgent Medic al Question Adult Medicine [address] [address] Mika Le DO Social History Tobacco Use [...] on filedocumented in this encounter Care Teams Professional Wrestler Relationship Specialty Start Date End Date Mika Le DO PCP - General Internal Medicine 07/22/20 [facility] PCP - General Internal Medicine 12/01/20 03/22/22 Jose E Dye MD PCP - General Family Practice 03/23/22 Bharat Anand MD, PHD Surgeon Neurosurgery 04/13/22 Darinel Sun PA-C [address] [place] [address] Specialist Neurosurgery 04/13/22 documented as of this encounter
--- OUTSIDE RECORDS SUMMARY | 2024-05-29 15:08 | XMS_ITS | Encounter Summary ---
[facility] Address [address] [place] [address] Care Team Providers Care Communications Equipment Supervisor Name Role Phone Mika Le DO Primary Care Provider [facility] Primary Care Provider UnavailJose E Miller MD Primary Care Provider Unav ailBharat Seals MD, PHD Unavailable Unava ilDarinel Davis PA-C Unavailable [phone] Encounter Details Date Type Department Care Team Description 08/13/2020 Refill Adult Medicine [address] [address] Mika Le DO Social History Tobacco Use [...] on filedocumented in this encounter Care Teams Communications Equipment Supervisor Relationship Specialty Start Date End Date Mika Le DO PCP - General Internal Medicine 07/22/[address] [place] [address] Pcp PCP - General Internal Medicine 12/01/20 03/22/22 Jose E Dye MD PCP - General Family Practice 03/23/22 Bharat Anand MD, PHD Surgeon Neurosurgery 04/13/22 Darinel Sun PA-C [address] [place] [address] Specialist Neurosurgery 04/13/22 documented as of this encounter
--- OUTSIDE RECORDS SUMMARY | 2024-05-29 15:09 | XMS_ITS | Encounter Summary ---
[facility] Address [address] [place] [address] Care Team Providers Care Dry Mill Worker Name Role Phone Rosalino Jung MD Primary Care Provider Unava Mika Lay DO Primary Care Provider Rabia jude Baig Pcp Primary Care Provider Jose E Vogt MD Primary Care Provider Unav Bharat Myers MD, PHD Unavailable Unava ilable Darinel Sun PA-C Unavailable Encounter Details Date Type Department Care Team Description 07/31/2019 Pt. Non Urgent Medic al Question Adult Medicine [address] [address] Rosalino Jung MD Social History Tobacco Use [...] Notes * Chioma Nuñez L.P.N. - 07/31/2019 1:26 PM EDTFrom: Alejandro Caruso To: Rosalino Jung MD Sent: 07/31/2019 1:25 PM EDT Subject: [facility] Dr. Jung, I wrote to you yesterday asking if I could go to [place] and the answer was yes. documented in this encounter Plan of Treatment Not on file documented as of this encounter Visit Diagnoses Not on filedocumented in this encounter Care Teams Dry Mill Worker Relationship Specialty Start Date End Date Rosalino Jung MD PCP - General Internal Medicine 11/11/17 07/21/20 Mika Le DO PCP - General Internal Medicine 07/22/20 [facility] PCP - General Internal Medicine 12/01/20 03/22/22 Jose E Dye MD PCP - General Family Practice 03/23/22 Bharat Anand MD, PHD Surgeon Neurosurgery 04/13/22 Darinel Sun PA-C [address] [place] [address] Specialist Neurosurgery 04/13/22 documented as of this encounter
--- OUTSIDE RECORDS SUMMARY | 2024-05-29 15:09 | XMS_ITS | Encounter Summary ---
[facility] Organization [facility] Address [address] [place] [address] Care Team Providers Care Shirt Creaser Name Role Phone Rosalino Jung MD Primary Care Provider Unava Mika Lay DO Primary Care Provider Rabia jude [facility] Primary Care Provider Jose E Vogt MD Primary Care Provider Unav Bharat Myers MD, PHD Unavailable Unava ilable Darinel Sun PA-C Unavailable [phone] Encounter Details Date Type Department Care Team Description 10/01/2019 School Bus Mechanic Report Medical Records [address] [place] [address] Lovely Ngo Social History Tobacco Use Types Packs/Day Years [...] on filedocumented in this encounter Care Teams Shirt Creaser Relationship Specialty Start Date End Date Rosalino Jung MD PCP - General Internal Medicine 11/11/17 07/21/20 Mika Le DO PCP - General Internal Medicine 07/22/20 [facility] [place]CP - General Internal Medicine 12/01/20 03/22/22 Jose E Dye MD PCP - General Family Practice 03/23/22 Bharat Anand MD, PHD Surgeon Neurosurgery 04/13/22 Darinel Sun PA-C [address] [place] [address] Specialist Neurosurgery 04/13/22 documented as of this encounter
--- OUTSIDE RECORDS SUMMARY | 2024-05-29 15:09 | XMS_ITS | Encounter Summary ---
[facility] Organization [facility] Address [address] [place] [address] Care Team Providers Care Jinrikisha Driver Name Role Phone Viv Kauffman MD Primary Care Provider UnavailRosalino Nava MD Primary Care Provider Unava Mika Lay DO Primary Care Provider Rabia [place] [facility], Pcp Primary Care Provider UnavailJose E Miller MD Primary Care Provider Unav Bharat Myers MD, PHD Unavailable Unava Darinel Thomas PA-C Unavailable [phone] Encounter Details Date Type Department Care Team Description 10/15/2015 Distribution Systems Serviceperson Report Medical Records [address] [place] [address] Valentin Leonard Social History Tobacco Use Types [...] on filedocumented in this encounter Care Teams Jinrikisha Driver Relationship Specialty Start Date End Date Viv [...] Surgeon Neurosurgery 04/13/22 Darinel Sun PA-C [address] [place] [address] Specialist Neurosurgery 04/13/22 documented as of this encounter
--- OUTSIDE RECORDS SUMMARY | 2024-05-29 15:09 | XMS_ITS | Encounter Summary ---
[facility] Organization [facility] Address [address] [place] [address] Care Team Providers Care Phlebotomy Instructor Name Role Phone Rosalino Jung MD Primary Care Provider Unava Mika Lay DO Primary Care Provider Rabia jude Baig Pcp Primary Care Provider Jose E Vogt MD Primary Care Provider Unav Bharat Myers MD, PHD Unavailable Unava ilable Darinel Sun PA-C Unavailable [phone] Encounter Details Date Type Department Care Team Description 10/10/2019 Pt. Non Urgent Medic al Question Adult Medicine [address] [address] Rosalino Jung MD Social History Tobacco Use [...] as of this encounter Progress Notes * Yuko Ling R.N. - 10/10/2019 2:12 PM EDTFrom: Alejandro Paul Couture To: Rosalino Jung MD Sent: 10/10/2019 1:43 PM EDT Subject: Back Pain Medication Dr. Jung, Could you please prescribe me the strongest non narcotic pain reliever? I go for my Facet joint shot on 11-05. Thank you in advance Alejandro documented in this encounter Plan of Treatment Not on file documented as of this encounter Visit Diagnoses Not on filedocumented in this encounter Care Teams Phlebotomy Instructor Relationship Specialty Start Date End Date Rosalino Jung MD PCP - General Internal Medicine 11/11/17 07/21/20 Mika Le DO PCP - General Internal Medicine 07/22/20 [facility] [place]CP - General Internal Medicine 12/01/20 03/22/22 Jose E Dye MD PCP - General Family Practice 03/23/22 Bharat Anand MD, PHD Surgeon Neurosurgery 04/13/22 Darinel Sun PA-C [address] [place] [address] Specialist Neurosurgery 04/13/22 documented as of this encounter
--- OUTSIDE RECORDS SUMMARY | 2024-05-29 15:09 | XMS_ITS | Encounter Summary ---
Author Organization [facility] Address [address] [place] [address] Care Team Providers Care Lead Ramp Service Man Name Role Phone Viv Kauffman MD Primary Care Provider UnavailRosalino Nava MD Primary Care Provider Unava ilMika Maya DO Primary Care Provider [facility], Pcp Primary Care Provider UnavailJose E Miller MD Primary Care Provider Unav Bharat Myers MD, PHD Unavailable Unava ilDarinel Davis PA-C Unavailable [phone] Encounter Details Date Type Department Care Team Description 11/11/2015 Screw Machine Setter Report Medical Records [address] [place] [address] Giselle Vaughan MD [address] [place] [address] [address] [place] [address] Social History Tobacco Use Types Packs/Day Years [...] filedocumented in this encounter Care Teams Lead Ramp Service Man Relationship Specialty Start Date End Date Viv [...] PHD Surgeon Neurosurgery 04/13/22 Darinel Sun PA-C [address] [place] [address] Specialist Neurosurgery 04/13/22 documented as of this encounter
--- OUTSIDE RECORDS SUMMARY | 2024-05-29 15:09 | XMS_ITS | Encounter Summary ---
Author Organization [facility] Address [address] [place] [address] Care Team Providers Care Acid Crane Operator Name Role Phone Rosalino Jung MD Primary Care Provider Unava Mika Lay DO Primary Care Provider Rabia Olaf Strauss Primary Care Provider Jose E Vogt MD Primary Care Provider Unav Bharat Myers MD, PHD Unavailable Unava ilable Darinel Sun PA-C Unavailable [phone] Encounter Details Date Type Department Care Team Description 10/22/2019 Pt. Non Urgent Medical Question Adult Medicine [address] [address] Rosalino Jung MD Failed back syndrome of [...] Progress Notes * Yuko Ling R.N. - 10/22/2019 9:19 AM EDTFrom: Alejandro Caruso To: Rosalino Jung MD Sent: 10/22/2019 7:55 AM EDT Subject: Lower Back Pain Dr. Jung, The pain in my back is out of control, how long until you will prescribe Oxycodone? Do I need to appeal it as it was only a little after a month after my hip surgeries. What can we try next? I can't wait 15 more days until my cortisone injection that will probably not work. I might sound pessimi stic too you but it's actually fact that they don't work or only work for a short period of time. 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
--- OUTSIDE RECORDS SUMMARY | 2024-05-29 15:09 | XMS_ITS | Encounter Summary ---
Author Organization [facility] Address [address] [place] [address] Care Team Providers Care Neonatologist Name Role Phone Rosalino Jung MD Primary Care Provider Unava Mika Lay DO Primary Care Provider Rabia jude Baig Pcp Primary Care Provider Jose E Vogt MD Primary Care Provider Unav Bharat Myers MD, PHD Unavailable Unava ilable Darinel Sun PA-C Unavailable [phone] Encounter Details Date Type Department Care Team Description 06/21/2018 Pt. Non Urgent Medic al Question Medicine/Pediatrics - [address] [address] Rosalino Jung MD Social History Tobacco Use [...] Progress Notes * Chioma Nuñez L.P.N. - 06/21/2018 12:58 PM EDTFrom: Alejandro Belleture To: Rosalino Jung MD Sent: 06/21/2018 12:58 PM EDT Subject: OxyCodone Prescription , I hope I can explain this correctly, but every time I request a refill they won't fill it until xzr95it day and you only give me a 28 day supply. So say I got my first prescription June 19 I wouldtake them the first through the leaving me with only 1 for the morning of the and I have to wait until the afternoon sometimes early evening until I get my refill. Could you please write mynext script for tomorrow so this doesn't happen? I hope this make sense. Thanks Alejandro documented in this encounter Plan of Treatment Not on file documented as of this encounter Visit Diagnoses Not on filedocumented in this encounter Care Teams Neonatologist Relationship Specialty Start Date End Date Rosalino Jung MD PCP - General Internal Medicine 11/11/17 07/21/20 Mika Le DO PCP - General Internal Medicine 07/22/[address] [place] [address] PCP - General Internal Medicine 12/01/20 03/22/22 Jose E Dye MD PCP - General Family Practice 03/23/22 Bharat Anand MD, PHD Surgeon Neurosurgery 04/13/22 Darinel Sun PA-C [address] [place] [address] [place] [address] Specialist Neurosurgery 04/13/22 documented as of this encounter
--- OUTSIDE RECORDS SUMMARY | 2024-05-29 15:09 | XMS_ITS | Encounter Summary ---
[facility] Organization [facility] Address [address] [place] [address] Care Team Providers Care Emergency Physician Name Role Phone Valentin Gaviria MD Primary Care Provider Unavail able Viv Kauffman MD Primary Care Provider Unavaila Rosalino Kirby MD Primary Care Provider Unava ilable Mika Le DO Primary Care Provider [facility] Primary Care Provider UnavailJose E Miller MD Primary Care Provider Unav Bharat Myers MD, PHD Unavailable Unava ilable Darinel Sun PA-C Unavailable [phone] Reason for Visit * Reason Onset Date Comments injection Special Procedure 01/21/2014 Encounter Details Date Type Department Care Team Description [facility]/21/2014 [facility] [address] [address] eLvy Rosas DO injection; Special Procedure Social History Tobacco Use Types Packs/Day Years [...] encounter Miscellaneous Notes * Telephone Encounter - Tiffany Nathan M.A. - 01/21/2014 2:31 PM EST I called patient and he said that it was Dr Booth's office that had called us. He states he saw him this morning and he recommended him to have an injection. He is to follow up with Dr Booth on04/03/14 to see how the injection worked. He states that if it does not give him any relief then he will have surgery. I have called Dr Booth's office and requested they send the report. * Telephone Encounter - Pamella Mckenzie MD - 01/21/2014 10:48 AM EST Order placed. I can't remember if he has gone to Dr. Mendoza or not? Kindly ask him what happened. * Telephone Encounter - Tiffany Nathan M.A. - 01/21/2014 10:30 AM EST Please advise * Telephone Encounter - Isidra Meyer - 01/21/2014 9:53 AM EST Patient calling for an injection right L4 TFE last one was 10/05/13 documented in this encounter Plan of Treatment Scheduled Orders Name Type Priority Associated Diagnoses Orde r Schedule PHYSIATRY PROCEDURE PHYSIATRY Routine Lumbar radiculopathy Ordered: 01/21/2014 documented as of this encounter Visit Diagnoses Diagnosis Lumbar radiculopathy- Primary Thoracic or lumbosacral neuritis or radiculitis, unspecified documented in this encounter Care Teams Emergency Physician Relationship Specialty Start Date End Date Valentin Gaviria MD PCP - General 06/28/00 01/16/15 Viv Kauffman MD PCP - General Internal Medicine 01/17/15 11/10/17 Rosalino Jung MD PCP - General Internal Medicine 11/11/17 07/21/20 Mika Le DO PCP - General Internal Medicine 07/22/20 [facility] PCP - General Internal Medicine 12/01/20 03/22/22 Jose E Dye MD PCP - General Family Practice 03/23/22 Bharat Anand MD, PHD Surgeon Neurosurgery 04/13/22 Darinel Sun PA-C [address] [place] [address] Specialist Neurosurgery 04/13/22 documented as of this encounter
--- OUTSIDE RECORDS SUMMARY | 2024-05-29 15:09 | XMS_ITS | Encounter Summary ---
Author Organization [facility] Address [address] [place] [address] Care Team Providers Care Indirect Fire Infantryman Name Role Phone Viv Kauffman MD Primary Care Provider UnavailRosalino Nava MD Primary Care Provider Unava Mika Lay DO Primary Care Provider [facility], Pcp Primary Care Provider UnavailJose E Miller MD Primary Care Provider Unav Bharat Myers MD, PHD Unavailable Unava Darinel Thomas PA-C Unavailable [phone] Encounter Details Date Type Department Care Team Description 03/10/2016 Internal Carver Report Medical Records [address] [place] [address] Valentin Leonard Social History Tobacco Use Types [...] on filedocumented in this encounter Care Teams Indirect Fire Infantryman Relationship Specialty Start Date End Date Viv [...] PHD Surgeon Neurosurgery 04/13/22 Darinel Sun PA-C [address] [place] [address] Specialist Neurosurgery 04/13/22 documented as of this encounter
--- OUTSIDE RECORDS SUMMARY | 2024-05-29 15:09 | XMS_ITS | Encounter Summary ---
[facility] Organization [facility] Address [address] [place] [address] Care Team Providers Care Back Tender Name Role Phone Rosalino Jung MD Primary Care Provider Unava Mika Lay DO Primary Care Provider Rabia jude Baig [facility] Primary Care Provider Jose E Vogt MD Primary Care Provider Unav Bharat Myers MD, PHD Unavailable Unava Darinel Thomas PA-C Unavailable [phone] Encounter Details Date Type Department Care Team Description 05/18/2018 Supervisor Throwing Department Report Medical Records [address] [place] [address] Barry Zhang Social History Tobacco Use Types Packs/Day Years [...] on filedocumented in this encounter Care Teams Back Tender Relationship Specialty Start Date End Date Rosalino Jung MD PCP - General Internal Medicine 11/11/17 07/21/20 Mika Le DO PCP - General Internal Medicine 07/22/20 [facility] PCP - General Internal Medicine 12/01/20 03/22/22 Jose E Dye MD PCP - General Family Practice 03/23/22 Bharat Anand MD, PHD Surgeon Neurosurgery 04/13/22 Darinel Sun PA-C [address] [place] [address] Specialist Neurosurgery 04/13/22 documented as of this encounter
--- OUTSIDE RECORDS SUMMARY | 2024-05-29 15:09 | XMS_ITS | Encounter Summary ---
Author Organization [facility] Address [address] [place] [address] Care Team Providers Care Gasoline Attendant Name Role Phone Rosalino Jung MD Primary Care Provider Unava Mika Lay DO Primary Care Provider Rabia jude Baig Pcp Primary Care Provider JoseE Vogt MD Primary Care Provider Unav Bharat Myers MD, PHD Unavailable Unava ilable Darinel Sun PA-C Unavailable [phone] Encounter Details Date Type Department Care Team Description 10/12/2019 Pt. Non Urgent Medic al Question Adult Medicine [address] [address] Rosalino Jung MD Social History Tobacco Use [...] Progress Notes * Yuko Ling R.N. - 10/12/2019 9:23 AM EDTFrom: Alejandro Caruso To: Rosalino Jung MD Sent: 10/12/2019 6:43 AM EDT Subject: New Script Can I still take my Suboxone??? documented in this encounter Plan of Treatment Not on file documented as of this encounter Visit Diagnoses Not on filedocumented in this encounter Care Teams Gasoline Attendant Relationship Specialty Start Date End Date Rosalino Jung MD PCP - General Internal Medicine 11/11/17 07/21/20 Mika Le DO PCP - General Internal Medicine 07/22/20 [facility] PCP - General Internal Medicine 12/01/20 03/22/22 Jose E Dye MD PCP - General Family Practice 03/23/22 Bharat Anand MD, PHD Surgeon Neurosurgery 04/13/22 Darinel Sun PA-C [address] [place] [address] Specialist Neurosurgery 04/13/22 documented as of this encounter
--- OUTSIDE RECORDS SUMMARY | 2024-05-29 15:09 | XMS_ITS | Encounter Summary ---
Author Organization [facility] Address [address] [place] [address] Care Team Providers Care Mental Health Unit Lead Psychologist Name Role Phone Mika Le DO Primary Care Provider [facility] Primary Care Provider Jose E Vogt MD Primary Care Provider Unav ailBharat Seals MD, PHD Unavailable Unava ilDarinel Davis PA-C Unavailable [phone] Reason for Visit * Reason Onset Date Comments refill request 08/01/2020 Encounter Details Date Type Department Care Team Description 08/01/2020 Telephone Adult Medicine [address] [address] Mika Le DO refill request Social History Tobacco Use Types [...] encounter Miscellaneous Notes * Telephone Encounter - Andrew Hoyos C.M.A. - 08/01/2020 12:59 PM EDT Will address at pt visit today * Telephone Encounter - Kyung Dixon - 08/01/2020 12:57 PM EDT Patient would like script to be: E-PRESCRIBED/FAXED TO PHARMACY WHEN WAS THE PATIENT'S LAST APPOINTMENT IN ADULT MEDICINE? 04/10/20 WHEN WAS THE LAST TIME THE PATIENT SAW THEIR PCP? Has not seen pcp Does patient have an upcoming appointment? Yes 08/04/20 (THE MEDICATION REQUESTED IS ON THE MED LIST ABOVE) All of the medications requested were on the CURRENT MEDS list Did you check the Pharmacy information above?: YES Patient wants: 90 -day supply Is this a mail order prescription request ? NO If the refill is from a FAXED refill request what is the RX # listed on the fax? N/A Patients current insurance carrier is: Payor: [employer] / Plan: [facility] / Product Type: HMO [id number] documented in this encounter Plan of Treatment Not on file documented as of this encounter Visit Diagnoses Not on filedocumented in this encounter Care Teams Mental Health Unit Lead Psychologist Relationship Specialty Start Date End Date Mika Le DO PCP - General Internal Medicine 07/22/20 1 [facility] PCP - General Internal Medicine 12/01/20 03/22/22 Jose E Dye MD PCP - General Family Practice 03/23/22 Bharat Anand MD, PHD Surgeon Neurosurgery 04/13/22 Darinel Sun PA-C [address] [place] [address] Specialist Neurosurgery 04/13/22 documented as of this encounter
--- OUTSIDE RECORDS SUMMARY | 2024-05-29 15:09 | XMS_ITS | Encounter Summary ---
Author Organization [facility] Address [address] [place] [address] Care Team Providers Care Refrigerating Machine Operator Name Role Phone Valentin Gaviria MD Primary Care Provider Unavail able Viv Kauffman MD Primary Care Provider Unavaila Rosalino Kirby MD Primary Care Provider Unava ilable Mika Le DO Primary Care Provider Rabia vailable [facility], Pcp Primary Care Provider UnavailJose E Miller MD Primary Care Provider Unav Bharat Myers MD, PHD Unavailable Unava ilable Darinel Sun PA-C Unavailable [phone] Encounter Details Date Type Department Care Team Description 12/12/2013 Controlled Substance Plan Medical Records [address] [place] [address] Abstract, Provider Social History Tobacco Use Types [...] on filedocumented in this encounter Care Teams Refrigerating Machine Operator Relationship Specialty Start Date End Date Valentin [...] Surgeon Neurosurgery 04/13/22 Darinel Sun PA-C [address] [place] [address] Specialist Neurosurgery 04/13/22 documented as of this encounter
--- OUTSIDE RECORDS SUMMARY | 2024-05-29 15:09 | XMS_ITS | Encounter Summary ---
Author Organization [facility] Address [address] [place] [address] Care Team Providers Care Manager Lsw Name Role Phone Viv Kauffman MD Primary Care Provider UnavailRosalino Nava MD Primary Care Provider Unava Mika Lay DO Primary Care Provider [facility], Pcp Primary Care Provider UnavailJose E Miller MD Primary Care Provider Unav Bharat Myers MD, PHD Unavailable Unava Darinel Thomas PA-C Unavailable [phone] Encounter Details Date Type Department Care Team Description 07/14/2016 In Mold Coater Report Medical Records [address] [place] [address] Valentin Leonard Social History Tobacco Use Types [...] on filedocumented in this encounter Care Teams Manager Lsw Relationship Specialty Start Date End Date Viv [...] Surgeon Neurosurgery 04/13/22 Darinel Sun PA-C [address] [place] [address] Specialist Neurosurgery 04/13/22 documented as of this encounter
--- OUTSIDE RECORDS SUMMARY | 2024-05-29 15:09 | XMS_ITS | Encounter Summary ---
Author Organization [facility] Address [address] [place] [address] Care Team Providers Care In Mold Coater Name Role Phone Mika Le DO Primary Care Provider [facility] Primary Care Provider UnavailJose E Miller MD Primary Care Provider Unav Bharat yMers MD, PHD Unavailable Unava ilDarinel Davis PA-C Unavailable [phone] Encounter Details Date Type Department Care Team Description 09/26/2020 Pt. Non Urgent Medic al Question Adult Medicine [address] [address] Mika Le DO Social History Tobacco Use [...] Telephone Encounter - Claudia Reveles M.A. - 09/26/2020 9:24 AM EDTFrom: Alejandro Caruso To: Geovanna Le Sent: 09/26/2020 9:18 AM EDT Subject: Triage Nurse I received a voice mail to call the triage nurse this morning and they told me too E-Mail you because your system is down. Please call me at [phone] Thanks, Alejandro Caruso documented in this encounter Plan of Treatment Not on file documented as of this encounter Visit Diagnoses Not on filedocumented in this encounter Care Teams In Mold Coater Relationship Specialty Start Date End Date Mika Le DO PCP - General Internal Medicine 07/22/20 1 [facility] PCP - General Internal Medicine 12/01/20 03/22/22 Jose E Dye MD PCP - General Family Practice 03/23/22 Bharat Anand MD, PHD Surgeon Neurosurgery 04/13/22 Darinel Sun PA-C [address] [place] [address] Specialist Neurosurgery 04/13/22 documented as of this encounter
--- OUTSIDE RECORDS SUMMARY | 2024-05-29 15:09 | XMS_ITS | Encounter Summary ---
Author Organization [facility] Address [address] [place] [address] Care Team Providers Care Order Schedule Clerk Name Role Phone Rosalino Jung MD Primary Care Provider Unava Mika Lay DO Primary Care Provider Rabia jude [facility] Primary Care Provider Jose E Vogt MD Primary Care Provider Unav Bharat Myers MD, PHD Unavailable Unava ilable Darinel Sun PA-C Unavailable [phone] Encounter Details Date Type Department Care Team Description 11/06/2019 Pathology Technologist Report Medical Records [address] [place] [id number] Lovely Ngo Social History Tobacco Use Types [...] on filedocumented in this encounter Care Teams Order Schedule Clerk Relationship Specialty Start Date End Date Rosalino Jung MD PCP - General Internal Medicine 11/11/17 07/21/20 Mika Le DO PCP - General Internal Medicine 07/22/20 [facility] PCP - General Internal Medicine 12/01/20 03/22/22 Jose E Dye MD PCP - General Family Practice 03/23/22 Bharat Anand MD, PHD Surgeon Neurosurgery 04/13/22 Darinel Sun PA-C [address] [place] [address] Specialist Neurosurgery 04/13/22 documented as of this encounter
== END 2024-05-29 12:33 | disposition home or self-care (01) ==
LOC: HO.US 12:32
PROVIDERS: PCP Family Medicine; Visit Provider Physician Assistant Surgical
DX: I83.11 Varicose veins of right lower extremity with inflammation (principal); I83.12 Varicose veins of left lower extremity with inflammation
CPT/HCPCS: 93970

== ENCOUNTER → 2024-05-29 12:36 | Outpatient (BNV) | payer MEDICARE, SELFPAY | PROVIDERS: PCP Family Medicine; Visit Provider Radiology Diagnostic Radiology | DX: I87.2 Venous insufficiency (chronic) (peripheral) (principal) | CPT/HCPCS: 93970 ==

== ENCOUNTER 2024-06-21 08:50 | Outpatient (AMB) | payer MEDICARE, SELFPAY ==
--- OUTSIDE RECORDS SUMMARY | 2024-06-21 08:59 | XMS_ITS | Encounter Summary ---
Author Organization [facility] Address [address] [place] [address] Care Team Providers Care Paint Prepper Name Role Phone Valentin Gaivria MD Primary Care Provider Unavail able Viv Kauffman MD Primary Care Provider Unavaila Rosalino Kirby MD Primary Care Provider Unava ilable Mika Le DO Primary Care Provider Rabia vailable [facility], Pcp Primary Care Provider UnavailJose E Miller MD Primary Care Provider Unav Bharat Myers MD, PHD Unavailable Unava ilable Darinel Sun PA-C Unavailable [phone] Encounter Details Date Type Department Care Team Description 10/17/2014 Hospital Medical Records [address] [place] [address] Giselle Vaughan MD [address] [place] [address] [address] [place] [address] Social History Tobacco Use Types Packs/Day Years [...] on filedocumented in this encounter Care Teams Paint Prepper Relationship Specialty Start Date End Date Valentin Gaviria MD PCP - General 06/28/00 01/16/15 Viv Kauffman MD PCP - General Internal Medicine 01/17/15 11/10/17 Rosalino Jung MD PCP - General Internal Medicine 11/11/17 07/21/20 Mika Le DO PCP - General Internal Medicine 07/22/[address] [place] [address] PCP - General Internal Medicine 12/01/20 03/22/22 Jose E Dye MD PCP - General Family Practice 03/23/22 Bharat Anand MD, PHD Surgeon Neurosurgery 04/13/22 Darinel Sun PA-C [address] [place] [address] Specialist Neurosurgery 04/13/22 documented as of this encounter
--- OUTSIDE RECORDS SUMMARY | 2024-06-21 08:59 | XMS_ITS | Encounter Summary ---
Author Organization [facility] Address [address] [place] [address] Care Team Providers Care Cancer Researcher Name Role Phone Viv Kauffman MD Primary Care Provider UnavailRosalino Nava MD Primary Care Provider Unava ilMika Maya DO Primary Care Provider [facility], Pcp Primary Care Provider UnavailJose E Miller MD Primary Care Provider Unav Bharat Myers MD, PHD Unavailable Unava Darinel Thomas PA-C Unavailable [phone] Encounter Details Date Type Department Care Team Description 08/09/2017 [facility] Medical Records [address] [place] [id number] Abstract, Provider Social History Tobacco Use Types [...] on filedocumented in this encounter Care Teams Cancer Researcher Relationship Specialty Start Date End Date Viv [...] PHD Surgeon Neurosurgery 04/13/22 Darinel Sun PA-C [address] [place] [address] Specialist Neurosurgery 04/13/22 documented as of this encounter
--- OUTSIDE RECORDS SUMMARY | 2024-06-21 08:59 | XMS_ITS | Encounter Summary ---
Author Organization [facility] Address [address] [place] [address] Care Team Providers Care Power Wheelchair Mechanic Name Role Phone Valentin Gaviria MD Primary Care Provider Unavail able Viv Kauffman MD Primary Care Provider Unavaila Rosalino Kirby MD Primary Care Provider Unava ilable Mika Le DO Primary Care Provider Rabia vailable [facility], Pcp Primary Care Provider UnavailJose E Miller MD Primary Care Provider Unav Bharat Myers MD, PHD Unavailable Unava ilable Darinel Sun PA-C Unavailable Encounter Details Date Type Department Care Team Description 11/20/2014 Pt. Non Urgent Medic al Question Medicine/Pediatrics - [address] [address] Valentin Gaviria MD Social History Tobacco Use [...] Progress Notes * Chioma Nuñez L.P.N. - 11/21/2014 8:43 AM EDTFrom: Alejandro Paul Shayd To: Valentin Gaviria MD Sent: 11/20/2014 6:39 PM EDT Subject: Elbow I noticed a golf ball size lump in my left elbow and it feels like fluid is building up. I would like to make an appointment tomorrow 11/21/14 if possible to get it checked out. Please call me at [phone] Thanks for your time. 1970 documented in this encounter Plan of Treatment Not on file documented as of this encounter Visit Diagnoses Not on filedocumented in this encounter Care Teams Power Wheelchair Mechanic Relationship Specialty Start Date End Date Valentin Gaviria MD PCP - General 06/28/00 01/16/15 Viv Kauffman MD PCP - General Internal Medicine 01/17/15 11/10/17 Rosalino Jung MD PCP - General Internal Medicine 11/11/17 07/21/20 Mika Le DO PCP - General Internal Medicine 07/22/[address] [place] [address] PCP - General Internal Medicine 12/01/20 03/22/22 Jose E Dye MD PCP - General Family Practice 03/23/22 Bharat Anand MD, PHD Surgeon Neurosurgery 04/13/22 Darinel Sun PA-C [address] [place] [address] [place] [address] Specialist Neurosurgery 04/13/22 documented as of this encounter
--- OUTSIDE RECORDS SUMMARY | 2024-06-21 08:59 | XMS_ITS | Encounter Summary ---
Author Organization [facility] Address [address] [place] [address] Care Team Providers Care Electrical Engineer Mep Name Role Phone Valentin Gaviria MD Primary Care Provider Unavail able Viv Kauffman MD Primary Care Provider Unavaila Rosalino Kirby MD Primary Care Provider Unava ilable Mika Le DO Primary Care Provider Rabia vailable [facility], Pcp Primary Care Provider UnavailJose E Miller MD Primary Care Provider Unav Bharat Myers MD, PHD Unavailable Unava ilable Darinel Sun PA-C Unavailable [phone] Encounter Details Date Type Department Care Team Description 12/10/2014 Automobile Racer Report Medical Records [address] [place] [address] Giselle Vaughan MD [address] [place] [address] [address] [place] [address] Social History Tobacco Use Types Packs/Day Years [...] filedocumented in this encounter Care Teams Electrical Engineer Mep Relationship Specialty Start Date End Date Valentin Gaviria MD PCP - General 06/28/00 01/16/15 Viv Kauffman MD PCP - General Internal Medicine 01/17/15 11/10/17 Rosalino Jung MD PCP - General Internal Medicine 11/11/17 07/21/20 Mika Le DO PCP - General Internal Medicine 07/22/[address] [place] [address] PCP - General Internal Medicine 12/01/20 03/22/22 Jose E Dye MD PCP - General Family Practice 03/23/22 Bharat Anand MD, PHD Surgeon Neurosurgery 04/13/22 Darinel Sun PA-C [address] [place] [address] Specialist Neurosurgery 04/13/22 documented as of this encounter
--- OUTSIDE RECORDS SUMMARY | 2024-06-21 08:59 | XMS_ITS | Encounter Summary ---
Author Organization [facility] Address [address] [place] [address] Care Team Providers Care Local Driver Name Role Phone Valentin Gaviria MD Primary Care Provider Unavail able Viv Kauffman MD Primary Care Provider Unavaila Rosalino Kirby MD Primary Care Provider Unava ilable Mika Le DO Primary Care Provider Rabia vailable [facility], Pcp Primary Care Provider UnavailJose E Miller MD Primary Care Provider Unav Bharat Myers MD, PHD Unavailable Unava ilable Darinel Sun PA-C Unavailable [phone] Encounter Details Date Type Department Care Team Description 08/26/2013 Orders Only Medicine/Pediatrics - [address] [phone] Valentin Gaviria MD Social History Tobacco Use [...] on filedocumented in this encounter Care Teams Local Driver Relationship Specialty Start Date End Date Valentin Gaviria MD PCP - General 06/28/00 01/16/15 Viv Kauffman MD PCP - General Internal Medicine 01/17/15 11/10/17 Rosalino Jung MD PCP - General Internal Medicine 11/11/17 07/21/20 Mika Le DO PCP - General Internal Medicine 07/22/20 [facility] PCP - General Internal Medicine 12/01/20 03/22/22 Jose E Dye MD PCP - General Family Practice 03/23/22 Bharat Anand MD, PHD Surgeon Neurosurgery 04/13/22 Darinel Sun PA-C [address] [place] [address] Specialist Neurosurgery 04/13/22 documented as of this encounter
--- OUTSIDE RECORDS SUMMARY | 2024-06-21 08:59 | XMS_ITS | Encounter Summary ---
Author Organization [facility] Address [address] [place] [address] Care Team Providers Care Machine Staker Name Role Phone Viv Kauffman MD Primary Care Provider UnavailRosalino Nava MD Primary Care Provider Unava Mika Lay DO Primary Care Provider Rabia [facility], Pcp Primary Care Provider UnavailJose E Miller MD Primary Care Provider Unav Bharat Myers MD, PHD Unavailable Unava Darinel Thomas PA-C Unavailable [phone] Encounter Details Date Type Department Care Team Description 02/05/2015 [place] Park Tour Guide Report Medical Records [address] [place] [address] Valentin Leonard Social History Tobacco Use Types [...] filedocumented in this encounter Care Teams Machine Staker Relationship Specialty Start Date End Date Viv Kauffman MD PCP - General Internal Medicine 01/17/15 11/10/17 Rosalino Jung MD PCP - General Internal Medicine 11/11/17 07/21/20 Mika Le DO PCP - General Internal Medicine 07/22/20 [facility] PCP - General Internal Medicine 12/01/20 03/22/22 Jose E Dye MD PCP - General Family Practice 03/23/22 Bharat Anand MD, PHD Surgeon Neurosurgery 04/13/22 Darinel Sun PA-C [address] [place] [address] Specialist Neurosurgery 04/13/22 documented as of this encounter
--- OUTSIDE RECORDS SUMMARY | 2024-06-21 08:59 | XMS_ITS | Encounter Summary ---
Author Organization [facility] Address [address] [place] [address] Care Team Providers Care Microbiology Analyst Name Role Phone Valentin Gaviria MD Primary Care Provider Unavail able Viv Kauffman MD Primary Care Provider Unavaila Rosalino Kirby MD Primary Care Provider Unava ilable Mika Le DO Primary Care Provider Rabia vailable [facility], Pcp Primary Care Provider UnavailJose E Miller MD Primary Care Provider Unav Bharat Myers MD, PHD Unavailable Unava ilable Darinel Sun PA-C Unavailable [phone] Encounter Details Date Type Department Care Team Description 10/28/2014 Editor Publications Report Medical Records [address] [place] [address] Giselle Vaughan MD [address] [place] [address] [address] [place] [address] Social History Tobacco Use Types Packs/Day Years [...] on filedocumented in this encounter Care Teams Microbiology Analyst Relationship Specialty Start Date End Date Valentin Gaviria MD PCP - General 06/28/00 01/16/15 Viv Kauffman MD PCP - General Internal Medicine 01/17/15 11/10/17 Rosalino Jung MD PCP - General Internal Medicine 11/11/17 07/21/20 Mika Le DO PCP - General Internal Medicine 07/22/[address] [place] [address] PCP - General Internal Medicine 12/01/20 03/22/22 Jose E Dye MD PCP - General Family Practice 03/23/22 Bharat Anand MD, PHD Surgeon Neurosurgery 04/13/22 Darinel Sun PA-C [address] [place] [address] Specialist Neurosurgery 04/13/22 documented as of this encounter
--- OUTSIDE RECORDS SUMMARY | 2024-06-21 08:59 | XMS_ITS | Encounter Summary ---
Author Organization [facility] Address [address] [place] [address] Care Team Providers Care Family Consumer Science Teacher Name Role Phone Valentin Gaviria MD Primary Care Provider Unavail able Viv Kauffman MD Primary Care Provider Unavaila Rosalino Kirby MD Primary Care Provider Unava ilable Mika Le DO Primary Care Provider Rabia vailable [facility], Pcp Primary Care Provider UnavailJose E Miller MD Primary Care Provider Unav Bharat Myers MD, PHD Unavailable Unava ilable Darinel Sun PA-C Unavailable [phone] Encounter Details Date Type Department Care Team Description 07/17/2013 Controlled Substance Plan Medical Records [address] [place] [address] Abstract, Provider Social History Tobacco Use Types [...] on filedocumented in this encounter Care Teams Family Consumer Science Teacher Relationship Specialty Start Date End Date Valentin [...] Surgeon Neurosurgery 04/13/22 Darinel Sun PA-C [address] [place] [address] Specialist Neurosurgery 04/13/22 documented as of this encounter
--- OUTSIDE RECORDS SUMMARY | 2024-06-21 08:59 | XMS_ITS | Encounter Summary ---
Author Organization [facility] Address [address] [place] [address] Care Team Providers Care Ice Cream Dispenser Name Role Phone Viv Kauffman MD Primary Care Provider UnavailRosalino Nava MD Primary Care Provider Unava ilMika Maya DO Primary Care Provider Rabia [facility], Pcp Primary Care Provider UnavailJose E Miller MD Primary Care Provider Unav Bharat Myers MD, PHD Unavailable Unava ilDarinel Davis PA-C Unavailable [phone] Encounter Details Date Type Department Care Team Description 04/29/2015 [place] Filament Machine Operator Report Medical Records [address] [place] [address] Giselle Vaughan MD [address] [place] [address] [address] [place] [address] Social History Tobacco Use Types Packs/Day Years [...] on filedocumented in this encounter Care Teams Ice Cream Dispenser Relationship Specialty Start Date End Date Viv Kauffman MD PCP - General Internal Medicine 01/17/15 11/10/17 Rosalino Jung MD PCP - General Internal Medicine 11/11/17 07/21/20 Mika Le DO PCP - General Internal Medicine 07/22/20 [facility] PCP - General Internal Medicine 12/01/20 03/22/22 Jose E Dye MD PCP - General Family Practice 03/23/22 Bharat Anand MD, PHD Surgeon Neurosurgery 04/13/22 Darinel Sun PA-C [address] [place] [address] Specialist Neurosurgery 04/13/22 documented as of this encounter
--- OUTSIDE RECORDS SUMMARY | 2024-06-21 08:59 | XMS_ITS | Encounter Summary ---
Author Organization [facility] Address [address] [place] [address] Care Team Providers Care Home Security Professional Name Role Phone Valentin Gaviria MD Primary Care Provider Unavail able Viv Kauffman MD Primary Care Provider Unavaila Rosalino Kirby MD Primary Care Provider Unava ilable Mika Le DO Primary Care Provider Rabia vailable [facility], Pcp Primary Care Provider UnavailJose E Miller MD Primary Care Provider Unav Bharat Myers MD, PHD Unavailable Unava ilable Darinel Sun PA-C Unavailable [phone] Encounter Details Date Type Department Care Team Description 07/24/2014 Education Professor Report Medical Records [address] [place] [address] [place] [address] [place], [place] [id number] Social History Tobacco Use Types Packs/Day Years [...] on filedocumented in this encounter Care Teams Home Security Professional Relationship Specialty Start Date End Date Valentin Gaviria MD PCP - General 06/28/00 01/16/15 Viv Kauffman MD PCP - General Internal Medicine 01/17/15 11/10/17 Rosalino Jung MD PCP - General Internal Medicine 11/11/17 07/21/20 Mika Le DO PCP - General Internal Medicine 07/22/[address] [place] [address] PCP - General Internal Medicine 12/01/20 03/22/22 Jose E Dye MD PCP - General Family Practice 03/23/22 Bharat Anand MD, PHD Surgeon Neurosurgery 04/13/22 Darinel Sun PA-C [address] [place] [address] Specialist Neurosurgery 04/13/22 documented as of this encounter
--- OUTSIDE RECORDS SUMMARY | 2024-06-21 09:00 | XMS_ITS | Encounter Summary ---
Author Organization [facility] Address [address] [place] [address] Care Team Providers Care Die Repairer Trimmer Dies Name Role Phone Jose E Dye MD Primary Care Provider Unav ailBharat Seals MD, PHD Unavailable Unava ilDarinel Davis PA-C Unavailable [phone] Reason for Visit * Reason Onset Date Comments Medication 05/14/2022 Encounter Details Date Type Department Care Team Description 05/14/2022 Refill Gastroenterology - [address] [place] [address] Lois Stephens MD [address] [place] [address] [id number] Medication Social History Tobacco Use Types Packs/Day [...] on filedocumented in this encounter Care Teams Die Repairer Trimmer Dies Relationship Specialty Start Date End Date Jose E Dye MD PCP - General Family Practice 03/23/22 Bharat Anand MD, PHD Surgeon Neurosurgery 04/13/22 Darinel Sun PA-C [address] [place] [address] Specialist Neurosurgery 04/13/22 documented as of this encounter
--- OUTSIDE RECORDS SUMMARY | 2024-06-21 09:00 | XMS_ITS | Encounter Summary ---
Author Organization [facility] Address [address] [place] [address] Care Team Providers Care Telegraph Service Clerk Name Role Phone Rosalino Jung MD Primary Care Provider Unava Mika Lay DO Primary Care Provider Rabia jude Baig Pcp Primary Care Provider Jose E Vogt MD Primary Care Provider Unav Bharat Myers MD, PHD Unavailable Unava ilable Darinel Sun PA-C Unavailable [phone] Encounter Details Date Type Department Care Team Description 03/06/2020 Pt. Non Urgent Medic al Question Adult Medicine [address] [address] Rosalino Jung MD Social History Tobacco Use [...] Progress Notes * Carlos Lara M.A. - 03/06/2020 1:36 PM ESTFrom: Alejandro Paul Couture To: Rosalino Jung MD Sent: 03/06/2020 10:00 AM EST Subject: DOSE-PACK FOR BACK PAIN Dr. Jung, Would you consider another Dose Pack? I understand you want me to stay off the Oxycodone but with all the snow blowing and shoveling I need something for my back and knee I hope you and your family are safe and doing well in this Covid-19,blizzard,ect... Let me k now either way please. Thanks for all you do . Alejandro documented in this encounter Plan of Treatment Not on file documented as of this encounter Visit Diagnoses Not on filedocumented in this encounter Care Teams Telegraph Service Clerk Relationship Specialty Start Date End Date Rosalino Jung MD PCP - General Internal Medicine 11/11/17 07/21/20 Mika Le DO PCP - General Internal Medicine 07/22/[address] [place] [address] PCP - General Internal Medicine 12/01/20 03/22/22 Jose E Dye MD PCP - General Family Practice 03/23/22 Bharat Anand MD, PHD Surgeon Neurosurgery 04/13/22 Darinel Sun PA-C [address] [place] [address] Specialist Neurosurgery 04/13/22 documented as of this encounter
--- OUTSIDE RECORDS SUMMARY | 2024-06-21 09:00 | XMS_ITS | Encounter Summary ---
Author Organization [facility] Address [address] [place] [address] Care Team Providers Care Inside Sales Associate Name Role Phone Rosalino Jung MD Primary Care Provider Unava Mika Lay DO Primary Care Provider Rabia jude Baig Pcp Primary Care Provider Jose E Vogt MD Primary Care Provider Unav Bharat Myers MD, PHD Unavailable Unava ilDarinel Davis PA-C Unavailable [phone] Encounter Details Date Type Department Care Team Description 12/20/2019 Pt. Non Urgent Medic al Question Adult Medicine [address] [address] Rosalino Jung MD Social History Tobacco Use [...] on filedocumented in this encounter Care Teams Inside Sales Associate Relationship Specialty Start Date End Date Rosalino Jung MD PCP - General Internal Medicine 11/11/17 07/21/20 Mika Le DO PCP - General Internal Medicine 07/22/[address] [place] [address] PCP - General Internal Medicine 12/01/20 03/22/22 Jose E Dye MD PCP - General Family Practice 03/23/22 Bharat Anand MD, PHD Surgeon Neurosurgery 04/13/22 Darinel Sun PA-C [address] [place] [address] Specialist Neurosurgery 04/13/22 documented as of this encounter
--- OUTSIDE RECORDS SUMMARY | 2024-06-21 09:00 | XMS_ITS | Encounter Summary ---
Author Organization [facility] Address [address] [place] [address] Care Team Providers Care Nurses Educator Name Role Phone Rosalino Jung MD Primary Care Provider Unava Mika Lay DO Primary Care Provider Rabia jude Baig Pcp Primary Care Provider Jose E Vogt MD Primary Care Provider Unav Bharat Myers MD, PHD Unavailable Unava ilable Darinel Sun PA-C Unavailable [phone] Encounter Details Date Type Department Care Team Description 03/16/2019 Pt. Non Urgent Medic al Question Medicine/Pediatrics - [address] [address] Rosalino Jung MD Social History Tobacco Use [...] Progress Notes * Carlos Lara M.A. - 03/16/2019 1:11 PM ESTFrom: Alejandro Caruso To: Rosalino Jung MD Sent: 03/16/2019 1:04 PM EST Subject: X-RAY RESULTS DR. Jung, I was just wondering if you recieved the results of my X-RAY? Thanks in advance. Alejandro Caruso documented in this encounter Plan of Treatment Not on file documented as of this encounter Visit Diagnoses Not on filedocumented in this encounter Care Teams Nurses Educator Relationship Specialty Start Date End Date Rosalino Jung MD PCP - General Internal Medicine 11/11/17 07/21/20 Mika Le DO PCP - General Internal Medicine 07/22/20 [facility] PCP - General Internal Medicine 12/01/20 03/22/22 Jose E Dye MD PCP - General Family Practice 03/23/22 Bharat Anand MD, PHD Surgeon Neurosurgery 04/13/22 Darinel Sun PA-C [address] [place] [address] [place] [address] Specialist Neurosurgery 04/13/22 documented as of this encounter
--- OUTSIDE RECORDS SUMMARY | 2024-06-21 09:00 | XMS_ITS | Encounter Summary ---
Author Organization [facility] Address [address] [place] [address] Care Team Providers Care Mushroom Growing Supervisor Name Role Phone Rosalino Jung MD Primary Care Provider Unava Mika Lay DO Primary Care Provider Rabia jude Baig [facility] Primary Care Provider Jose E Vogt MD Primary Care Provider Unav Bharat Myers MD, PHD Unavailable Unava ilable Darinel Sun PA-C Unavailable [phone] Encounter Details Date Type Department Care Team Description 05/18/2020 Pt. Non Urgent Medic al Question Adult Medicine [address] [address] Rosalino Jung MD Social History Tobacco Use [...] encounter Miscellaneous Notes * Telephone Encounter - Winston Burgess R.N. - 05/19/2020 8:41 AM ESTFrom: Alejandro Caruso To: Rosalino Jung MD Sent: 05/18/2020 2:26 PM EST Subject: Back Pain Dr. Jung, Could you send a Referal too someone out near [place], I think it was [place] the last time but ended up in [place] and it was all good for me, unfortunately they don't do backs and I can't find theold one. Let me know DEMETRIO please. Thanks for all you do, I still think you r the best PCP!!!! Alejandro Caruso documented in this encounter Plan of Treatment Not on file documented as of this encounter Visit Diagnoses Not on filedocumented in this encounter Care Teams Mushroom Growing Supervisor Relationship Specialty Start Date End Date Roslaino Jung MD PCP - General Internal Medicine 11/11/17 07/21/20 Mika Le DO PCP - General Internal Medicine 07/22/[address] [place] [address] PCP - General Internal Medicine 12/01/20 03/22/22 Jose E Dye MD PCP - General Family Practice 03/23/22 Bharat Anand MD, PHD Surgeon Neurosurgery 04/13/22 Darinel Sun PA-C [address] [place] [address] [place] [address] Specialist Neurosurgery 04/13/22 documented as of this encounter
--- OUTSIDE RECORDS SUMMARY | 2024-06-21 09:00 | XMS_ITS | Encounter Summary ---
Author Organization [facility] Address [address] [place] [address] Care Team Providers Care Steel Rule Die Maker Apprentice Name Role Phone Rosalino Jung MD Primary Care Provider Unava Mika Lay DO Primary Care Provider Rabia jude [facility] Primary Care Provider Jose E Vogt MD Primary Care Provider Unav Bharat Myers MD, PHD Unavailable Unava ilable Darinel Sun PA-C Unavailable [phone] Encounter Details Date Type Department Care Team Description 01/18/2019 Ad Operations Intern Report Medical Records [address] [place] [address] Lindsay Whitman Social History Tobacco Use Types Packs/Day Years [...] on filedocumented in this encounter Care Teams Steel Rule Die Maker Apprentice Relationship Specialty Start Date End Date Rosalino Jung MD PCP - General Internal Medicine 11/11/17 07/21/20 Mika Le DO PCP - General Internal Medicine 07/22/20 [facility] PCP - General Internal Medicine 12/01/20 03/22/22 Jose E Dye MD PCP - General Family Practice 03/23/22 Bharat Anand MD, PHD Surgeon Neurosurgery 04/13/22 Darinel Sun PA-C [address] [place] [address] Specialist Neurosurgery 04/13/22 documented as of this encounter
--- OUTSIDE RECORDS SUMMARY | 2024-06-21 09:00 | XMS_ITS | Encounter Summary ---
Author Organization [facility] Address [address] [place] [address] Care Team Providers Care Wheel And Caster Repairer Name Role Phone Rosalino Jung MD Primary Care Provider Unava Mika Lay DO Primary Care Provider Rabia Olaf Strauss Primary Care Provider Jose E Vogt MD Primary Care Provider Unav Bharat Myers MD, PHD Unavailable Unava ilDarinel Davis PA-C Unavailable [phone] Encounter Details Date Type Department Care Team Description 12/10/2019 Resource Center Teacher Report Medical Records [address] [place] [address] Lovely Ngo Social History Tobacco Use Types [...] on filedocumented in this encounter Care Teams Wheel And Caster Repairer Relationship Specialty Start Date End Date Rosalino Jung MD PCP - General Internal Medicine 11/11/17 07/21/20 Mika Le DO PCP - General Internal Medicine 07/22/20 [facility] PCP - General Internal Medicine 12/01/20 03/22/22 Jose E Dye MD PCP - General Family Practice 03/23/22 Bharat Anand MD, PHD Surgeon Neurosurgery 04/13/22 Darinel Sun PA-C [address] [place] [address] Specialist Neurosurgery 04/13/22 documented as of this encounter
--- OUTSIDE RECORDS SUMMARY | 2024-06-21 09:00 | XMS_ITS | Encounter Summary ---
Author Organization [facility] Address [address] [place] [address] Care Team Providers Care Over Hauler Helper Name Role Phone Rosalino Jung MD Primary Care Provider Unava Mika Lay DO Primary Care Provider Rabia Olaf Strauss Primary Care Provider Jose E Vogt MD Primary Care Provider UnaBharat Gomes MD, PHD Unavailable Unava Darinel Thomas PA-C Unavailable [phone] Encounter Details Date Type Department Care Team Description 09/11/2018 [facility] Medical Records [address] [place] [address] Abstract, Provider Social History Tobacco Use Types [...] on filedocumented in this encounter Care Teams Over Hauler Helper Relationship Specialty Start Date End Date Rosalino Jung MD PCP - General Internal Medicine 11/11/17 07/21/20 Mika Le DO PCP - General Internal Medicine 07/22/20 [facility] PCP - General Internal Medicine 12/01/20 03/22/22 Jose E Dye MD PCP - General Family Practice 03/23/22 Bharat Anand MD, PHD Surgeon Neurosurgery 04/13/22 Darinel Sun PA-C [address] [place] [address] Specialist Neurosurgery 04/13/22 documented as of this encounter
--- OUTSIDE RECORDS SUMMARY | 2024-06-21 09:00 | XMS_ITS | Encounter Summary ---
Author Organization [facility] Address [address] [place] [address] Care Team Providers Care Consulting Database Administrator Name Role Phone Rosalino Jung MD Primary Care Provider Unava Mika Lay DO Primary Care Provider Rabia jude Baig Pcp Primary Care Provider Jose E Vogt MD Primary Care Provider Unav Bharat Myers MD, PHD Unavailable Unava ilable Darinel Sun PA-C Unavailable [phone] Encounter Details Date Type Department Care Team Description 02/22/2019 Pt. Non Urgent Medic al Question Medicine/Pediatrics - [address] [address] Rosalino Jung MD Social History Tobacco Use [...] on filedocumented in this encounter Care Teams Consulting Database Administrator Relationship Specialty Start Date End Date Rosalino Jung MD PCP - General Internal Medicine 11/11/17 07/21/20 Mika Le DO PCP - General Internal Medicine 07/22/[address] [place] [address] PCP - General Internal Medicine 12/01/20 03/22/22 Jose E Dye MD PCP - General Family Practice 03/23/22 Bharat Anand MD, PHD Surgeon Neurosurgery 04/13/22 Darinel Sun PA-C [address] [place] [address] Specialist Neurosurgery 04/13/22 documented as of this encounter
--- OUTSIDE RECORDS SUMMARY | 2024-06-21 09:00 | XMS_ITS | Encounter Summary ---
Author Organization [facility] Address [address] [place] [address] Care Team Providers Care Info Analyst Name Role Phone Rosalino Jung MD Primary Care Provider Unava Mika Lay DO Primary Care Provider Rabia jude Baig [facility] Primary Care Provider Jose E Vogt MD Primary Care Provider Unav Bharat Myers MD, PHD Unavailable Unava ilable Darinel Sun PA-C Unavailable [phone] Encounter Details Date Type Department Care Team Description 09/29/2018 [facility] [address] [address] Md Vikash Social History Tobacco Use Types [...] --- Contact Information --- Contact Phone #: [phone] --- Medication Request Information --- Medication name: Diclofenca Sodium Topical Gel 1% Dosage: 100 g instructions: apply 2-3 timesa day # Dispensed: 100 g Ordering Provider: DR. Riggs Pharmacy: [facility] Other Details: This cream helps with the pain but unfortunayly it only last an hour or two. documented in this encounter Plan of Treatment Not on file documented as of this encounter Visit Diagnoses Not on filedocumented in this encounter Care Teams Info Analyst Relationship Specialty Start Date End Date Rosalino Jung MD PCP - General Internal Medicine 11/11/17 07/21/20 Mika Le DO PCP - General Internal Medicine 07/22/[address] [place], [place] [address]Olaf PCP - General Internal Medicine 12/01/20 03/22/22 Jose E Dye MD PCP - General Family Practice 03/23/22 Bharat Anand MD, PHD Surgeon Neurosurgery 04/13/22 Darinel Sun PA-C [address] [place] [address] [place] [address] Specialist Neurosurgery 04/13/22 documented as of this encounter
--- OUTSIDE RECORDS SUMMARY | 2024-06-21 09:00 | XMS_ITS | Encounter Summary ---
Author Organization [facility] Address [address] [place] [address] Care Team Providers Care Hospital Liaison Name Role Phone Rosalino Jung MD Primary Care Provider Unava Mika Lay DO Primary Care Provider Rabia jude Baig Pcp Primary Care Provider Jose E Vogt MD Primary Care Provider Unav Bharat Myers MD, PHD Unavailable Unava ilable Darinel Sun PA-C Unavailable [phone] Encounter Details Date Type Department Care Team Description 03/23/2019 Telephone Medicine/Pediatrics - [address] [id number] Rosalino Jung MD Social History Tobacco Use [...] 9:58 AM EST I returned call to Eliazbeth again, spoke with her. She notes she started him on suboxone therapy, she notes she thought suboxone was better choice for him than methadone. Dose started suboxone 2mg daily, thought scritp written for up to 4mg daily. He has f/u with her today. She notes main intake number for [facility] if needed in future is [phone] * Telephone Encounter - Rosalino Jung MD - 03/23/2019 9:14 AM EST Returned call to Elizabeth, left message for elizabeth to call me back. Will again await call back * Telephone Encounter - Nadja Jarrell - 03/23/2019 8:56 AM EST Elizabeth returned phone call - [phone] best number to reach her on * Telephone Encounter - Rosalino Jung MD - 03/23/2019 8:37 AM EST MIGUEL for me to speak with her included in letter received from elizabeth LOPES * Telephone Encounter - Rosalino Jung MD - 03/23/2019 8:35 AM EST Called MARIANNE Gabriel ([phone]) from suboxone clinic, I had received letter from her 03/20/19 requesting I call her as she just started Alejandro on buprenorphine treatment. Left message with her staff, will await call back documented in this encounter Plan of Treatment Not on file documented as of this encounter Visit Diagnoses Not on filedocumented in this encounter Care Teams Hospital Liaison Relationship Specialty Start Date End Date Rosalino Jung MD PCP - General Internal Medicine 11/11/17 07/21/20 Mika Le DO PCP - General Internal Medicine 07/22/20 [facility] PCP - General Internal Medicine 12/01/20 03/22/22 Jose E Dye MD PCP - General Family Practice 03/23/22 Bharat Anand MD, PHD Surgeon Neurosurgery 04/13/22 Darinel Sun PA-C [address] [place] [address] Specialist Neurosurgery 04/13/22 documented as of this encounter
--- OUTSIDE RECORDS SUMMARY | 2024-06-21 09:00 | XMS_ITS | Encounter Summary ---
Author Organization [facility] Address [address] [place] [address] Care Team Providers Care Parts Salesperson Name Role Phone Valentin Gaviria MD Primary Care Provider Unavail able Viv Kauffman MD Primary Care Provider Unavaila Rosalino Kirby MD Primary Care Provider Unava ilable Mika Le DO Primary Care Provider Rabia vailable [facility] Pcp Primary Care Provider UnavailJose E Miller MD Primary Care Provider Unav Bharat Myers MD, PHD Unavailable Unava ilable Darinel Sun PA-C Unavailable [phone] Encounter Details Date Type Department Care Team Description 03/27/2014 Workforce Specialist Report Medical Records [address] [place] [address] [facility] [address] [place], [place] [id number] Social History Tobacco Use Types Packs/Day Years [...] on filedocumented in this encounter Care Teams Parts Salesperson Relationship Specialty Start Date End Date Valentin Gaviria MD PCP - General 06/28/00 01/16/15 Viv Kauffman MD PCP - General Internal Medicine 01/17/15 11/10/17 Rosalino Jung MD PCP - General Internal Medicine 11/11/17 07/21/20 Mika Le DO PCP - General Internal Medicine 07/22/[address] [place] [address] PCP - General Internal Medicine 12/01/20 03/22/22 Jose E Dye MD PCP - General Family Practice 03/23/22 Bharat Anand MD, PHD Surgeon Neurosurgery 04/13/22 Darinel Sun PA-C [address] [place] [address] Specialist Neurosurgery 04/13/22 documented as of this encounter
--- OUTSIDE RECORDS SUMMARY | 2024-06-21 09:00 | XMS_ITS | Encounter Summary ---
Author Organization [facility] Address [address] [place] [address] Care Team Providers Care Water/Wastewater Project Engineer Name Role Phone Rosalino Jung MD Primary Care Provider Unava Mika Lay DO Primary Care Provider Rabia jude Baig Pcp Primary Care Provider Jose E Vogt MD Primary Care Provider Unav Bharat Myers MD, PHD Unavailable Unava ilable Darinel Sun PA-C Unavailable Encounter Details Date Type Department Care Team Description 03/07/2020 Pt. Non Urgent Medic al Question Adult Medicine [address] [address] Rosalino Jung MD Social History Tobacco Use [...] on filedocumented in this encounter Care Teams Water/Wastewater Project Engineer Relationship Specialty Start Date End Date Rosalino Jung MD PCP - General Internal Medicine 11/11/17 07/21/20 Mika Le DO PCP - General Internal Medicine 07/22/[address] [place] [address] PCP - General Internal Medicine 12/01/20 03/22/22 Jose E Dye MD PCP - General Family Practice 03/23/22 Bharat Anand MD, PHD Surgeon Neurosurgery 04/13/22 Darinel Sun PA-C [address] [facility] [address] [place] [address] Specialist Neurosurgery 04/13/22 documented as of this encounter
--- OUTSIDE RECORDS SUMMARY | 2024-06-21 09:00 | XMS_ITS | Encounter Summary ---
Author Organization [facility] Address [address] [place] [address] Care Team Providers Care Glass Driller Name Role Phone Rosalino Jung MD Primary Care Provider Unava Mika Lay DO Primary Care Provider Rabia jude Baig Pcp Primary Care Provider Jose E Vogt MD Primary Care Provider Unav Bharat Myers MD, PHD Unavailable Unava Darinel Thomas PA-C Unavailable [phone] Encounter Details Date Type Department Care Team Description 05/22/2020 [facility] Adult [address] [address] Joel Perez PA-C Social History Tobacco Use [...] encounter Miscellaneous Notes * Telephone Encounter - Trish Mcallister - 05/22/2020 3:01 PM EST Xavier [...] region documented in this encounter Care Teams Glass Driller Relationship Specialty Start Date End Date Rosalino Jung MD PCP - General Internal Medicine 11/11/17 07/21/20 Mika Le DO PCP - General Internal Medicine 07/22/20 [facility] PCP - General Internal Medicine 12/01/20 03/22/22 Jose E Dye MD PCP - General Family Practice 03/23/22 Bharat Anand MD, PHD Surgeon Neurosurgery 04/13/22 Darinel Sun PA-C [address] [place] [address] Specialist Neurosurgery 04/13/22 documented as of this encounter
--- OUTSIDE RECORDS SUMMARY | 2024-06-21 09:00 | XMS_ITS | Encounter Summary ---
Author Organization [facility] Address [address] [place] [address] Care Team Providers Care Mushroom Packer Name Role Phone Juan Jung MD Primary Care Provider Unava Mika Lay DO Primary Care Provider Rabia jude Baig Pcp Primary Care Provider Jose E Vogt MD Primary Care Provider Unav Bharat Myers MD, PHD Unavailable Unava ilable Darinel Sun PA-C Unavailable [phone] Reason for Visit * Reason Onset Date Comments APPOINTMENT 03/20/2019 Encounter Details Date Type Department Care Team Description 03/20/2019 Telephone Medicine/Pediatrics [address] [phone] Juan Jung MD APPOINTMENT Social History Tobacco Use Types Packs/Day Years [...] encounter Miscellaneous Notes * Telephone Encounter - Juan Jung MD - 04/13/2019 2:45 PM EST Patient not interested in injections per previous conversations * Telephone Encounter - Sloane Peñaloza - 03/20/2019 10:18 AM EST JUAN JUNG You had referred patient to pain management for medical management. The only office offering medical management is in [place] however patient does not want to drive that far. Also, I was notified that he is or will be starting a suboxone clinic in which case he will not need medical management asthey mostly prescribe opioid medication. Patient can be referred to pain management for interventional management which is injections and all other treatment options besides prescribing medications. even though patient tried this option before and per patient it did not help, he can try another provider as they offer a variety of treatment options. There are couple offices in the area, including [place], [place] and [facility] ho accept new patients. This is another, good option for the patient. I pended a new order for interventional management. If this is something the patient would like to pursue, please review and sign. You may add a specific provider or facility. Thank you, [place] Referrals Dept [facility] * Telephone Encounter - Leila Jade Rn - 03/20/2019 10:11 AM EST Spoke to pt he is being seen in suboxin clinic, He has [employer], for his ins. Call to referrals, Pain management with medical intervention is in [place] Or interventional pain mt, , is more local. And they do injections. Referrals will send a message to Dr Jung, * Telephone Encounter - Lety Fabian - 03/20/2019 9:42 AM EST [facility] calling in states the Patient isnt sure why he's being booked for appt out in [facility], [place] pain mgmt calling because they need to know if pcp wants them to pursue giving patient appt. Please cb and advise. documented in this encounter Plan of Treatment Not on file documented as of this encounter Visit Diagnoses Not on filedocumented in this encounter Care Teams Mushroom Packer Relationship Specialty Start Date End Date Juan Jung MD PCP - General Internal Medicine 11/11/17 07/21/20 Mika Le DO PCP - General Internal Medicine 07/22/20 [facility] PCP - General Internal Medicine 12/01/20 03/22/22 Jose E Dye MD PCP - General Family Practice 03/23/22 Bharat Anand MD, PHD Surgeon Neurosurgery 04/13/22 Darinel Sun PA-C [address] [place] [address] Specialist Neurosurgery 04/13/22 documented as of this encounter
--- OUTSIDE RECORDS SUMMARY | 2024-06-21 09:00 | XMS_ITS | Encounter Summary ---
Author Organization [facility] Address [address] [place] [address] Care Team Providers Care Corporate Attorney Name Role Phone Rosalino Jung MD Primary Care Provider Unava ilMika Maya DO Primary Care Provider Rabia jude Baig Pcp Primary Care Provider Jose E Vogt MD Primary Care Provider Unav Bharat Myers MD, PHD Unavailable Unava ilable Darinel Sun PA-C Unavailable [phone] Encounter Details Date Type Department Care Team Description 01/31/2020 Pt. Non Urgent Medic al Question Adult Medicine [address] [address] Rosalino Jung MD Social History Tobacco Use [...] on filedocumented in this encounter Care Teams Corporate Attorney Relationship Specialty Start Date End Date Rosalino Jung MD PCP - General Internal Medicine 11/11/17 07/21/20 Mika Le DO PCP - General Internal Medicine 07/22/[address] [place] [address] PCP - General Internal Medicine 12/01/20 03/22/22 Jose E Dye MD PCP - General Family Practice 03/23/22 Bharat Anand MD, PHD Surgeon Neurosurgery 04/13/22 Darinel Sun PA-C [address] [place] [address] [place] [address] Specialist Neurosurgery 04/13/22 documented as of this encounter
--- OUTSIDE RECORDS SUMMARY | 2024-06-21 09:00 | XMS_ITS | Encounter Summary ---
Author Organization [facility] Address [address] [place] [address] Care Team Providers Care Financial Compliance Examiner Name Role Phone Rosalino Jung MD Primary Care Provider Unava Mika Lay DO Primary Care Provider Rabia jude Baig [facility] Primary Care Provider Jose E Vogt MD Primary Care Provider UnaBharat Gomes MD, PHD Unavailable Unava Darinel Thomas PA-C Unavailable Encounter Details Date Type Department Care Team Description 09/18/2018 Public Relations Supervisor Report Medical Records [address] [place] [id number] Petr Ritter MD Social History Tobacco Use [...] on filedocumented in this encounter Care Teams Financial Compliance Examiner Relationship Specialty Start Date End Date Rosalino Jung MD PCP - General Internal Medicine 11/11/17 07/21/20 Mika Le DO PCP - General Internal Medicine 07/22/20 [facility] PCP - General Internal Medicine 12/01/20 03/22/22 Jose E Dye MD PCP - General Family Practice 03/23/22 Bharat Anand MD, PHD Surgeon Neurosurgery 04/13/22 Darinel Sun PA-C [address] [place] [address] Specialist Neurosurgery 04/13/22 documented as of this encounter
--- OUTSIDE RECORDS SUMMARY | 2024-06-21 09:00 | XMS_ITS | Encounter Summary ---
Author Organization [facility] Address [address] [place] [address] Care Team Providers Care Supervisor Commissary Production Name Role Phone Rosalino Jung MD Primary Care Provider Unava Mika Lay DO Primary Care Provider Rabia jude Baig [facility] Primary Care Provider Jose E Vogt MD Primary Care Provider UnaBharat Gomes MD, PHD Unavailable Unava Darinel Thomas PA-C Unavailable [phone] Encounter Details Date Type Department Care Team Description 10/02/2018 Engraver Apprentice Decorative Report Medical Records [address] [place] [address] Petr Ritter MD Social History Tobacco Use [...] on filedocumented in this encounter Care Teams Supervisor Commissary Production Relationship Specialty Start Date End Date Rosalino Jung MD PCP - General Internal Medicine 11/11/17 07/21/20 Mika Le DO PCP - General Internal Medicine 07/22/20 [facility] PCP - General Internal Medicine 12/01/20 03/22/22 Jose E Dye MD PCP - General Family Practice 03/23/22 Bharat Anand MD, PHD Surgeon Neurosurgery 04/13/22 Darinel Sun PA-C [address] [place] [address] Specialist Neurosurgery 04/13/22 documented as of this encounter
--- OUTSIDE RECORDS SUMMARY | 2024-06-21 09:00 | XMS_ITS | Encounter Summary ---
Author Organization [facility] Address [address] [place] [address] Care Team Providers Care Cigar Inspector Name Role Phone Valentin Gaviria MD Primary Care Provider Unavail able Viv Kauffman MD Primary Care Provider Unavaila Rosalino Kirby MD Primary Care Provider Unava ilable Mika Le DO Primary Care Provider Rabia vailable [facility], Pcp Primary Care Provider UnavailJose E Miller MD Primary Care Provider Unav Bharat Myers MD, PHD Unavailable Unava ilable Darinel Sun PA-C Unavailable [phone] Encounter Details Date Type Department Care Team Description 09/22/2012 Controlled Substance Contract with Plan Medical Records [address] [place] [id number] Abstract, Provider Social History Tobacco Use Types [...] on filedocumented in this encounter Care Teams Cigar Inspector Relationship Specialty Start Date End Date Valentin Gaviria MD PCP - General 06/28/00 01/16/15 Viv Kauffman MD PCP - General Internal Medicine 01/17/15 11/10/17 Rosalino Jung MD PCP - General Internal Medicine 11/11/17 07/21/20 Mika Le DO PCP - General Internal Medicine 07/22/20 [facility] PCP - General Internal Medicine 12/01/20 03/22/22 Jose E Dye MD PCP - General Family Practice 03/23/22 Bharat Anand MD, PHD Surgeon Neurosurgery 04/13/22 Darinel Sun PA-C [address] [place] [address] Specialist Neurosurgery 04/13/22 documented as of this encounter
--- OUTSIDE RECORDS SUMMARY | 2024-06-21 09:00 | XMS_ITS | Encounter Summary ---
Author Organization [facility] Address [address] [place] [address] Care Team Providers Care Home Security Alarm Installer Name Role Phone Mika Le DO Primary Care Provider [facility] Primary Care Provider UnavailJose E Miller MD Primary Care Provider Unav ailBharat Seals MD, PHD Unavailable Unava ilDarinel Davis PA-C Unavailable [phone] Encounter Details Date Type Department Care Team Description 10/29/2020 Pt. Non Urgent Medic al Question Adult Medicine [address] [address] Mika Le DO Social History Tobacco Use [...] in this encounter Care Teams Home Security Alarm Installer Relationship Specialty Start Date End Date Mika Le DO PCP - General Internal Medicine 07/22/[address] [place] [address] PCP - General Internal Medicine 12/01/20 03/22/22 Jose E Dye MD PCP - General Family Practice 03/23/22 Bharat Anand MD, PHD Surgeon Neurosurgery 04/13/22 Darinel Sun PA-C [address] [place] [address] Specialist Neurosurgery 04/13/22 documented as of this encounter
--- OUTSIDE RECORDS SUMMARY | 2024-06-21 09:00 | XMS_ITS | Encounter Summary ---
Author Organization [facility] Address [address] [place] [address] Care Team Providers Care Director Of Pulmonary Unit Name Role Phone Rosalino Jung MD Primary Care Provider Unava Mika Lay DO Primary Care Provider Rabia jude Baig Pcp Primary Care Provider Jose E Vogt MD Primary Care Provider Unav Bharat Myers MD, PHD Unavailable Unava ilable Darinel Sun PA-C Unavailable [phone] Encounter Details Date Type Department Care Team Description 03/12/2019 Pt. Non Urgent Medic al Question Medicine/Pediatrics - [address] [address] Rosalino Jung MD Social History Tobacco Use [...] filedocumented in this encounter Care Teams Director Of Pulmonary Unit Relationship Specialty Start Date End Date Rosalino Jung MD PCP - General Internal Medicine 11/11/17 07/21/20 Mika Le DO PCP - General Internal Medicine 07/22/20 [facility] PCP - General Internal Medicine 12/01/20 03/22/22 Jose E Dye MD PCP - General Family Practice 03/23/22 Bharat Anand MD, PHD Surgeon Neurosurgery 04/13/22 Darinel Sun PA-C [address] [place] [address] Specialist Neurosurgery 04/13/22 documented as of this encounter
--- OUTSIDE RECORDS SUMMARY | 2024-06-21 09:00 | XMS_ITS | Encounter Summary ---
Author Organization [facility] Address [address] [place] [address] Care Team Providers Care Motor Scooter Repairer Name Role Phone Rosalino Jung MD Primary Care Provider Unava Mika Lay DO Primary Care Provider Rabia Olaf Strauss Primary Care Provider Jose E Vogt MD Primary Care Provider UnaBharat Gomes MD, PHD Unavailable Unava Darinel Thomas PA-C Unavailable [phone] Encounter Details Date Type Department Care Team Description 12/19/2017 [facility] Medical Records [address] [place] [id number] Abstract, Provider Social History Tobacco Use Types [...] on filedocumented in this encounter Care Teams Motor Scooter Repairer Relationship Specialty Start Date End Date Rosalino Jung MD PCP - General Internal Medicine 11/11/17 07/21/20 Mika Le DO PCP - General Internal Medicine 07/22/20 [facility] PCP - General Internal Medicine 12/01/20 03/22/22 Jose E Dye MD PCP - General Family Practice 03/23/22 Bharat Anand MD, PHD Surgeon Neurosurgery 04/13/22 Darinel Sun PA-C [address] [place] [address] Specialist Neurosurgery 04/13/22 documented as of this encounter
--- OUTSIDE RECORDS SUMMARY | 2024-06-21 09:00 | XMS_ITS | Encounter Summary ---
Author Organization [facility] Address [address] [place] [address] Care Team Providers Care Health Safety Specialist Name Role Phone Rosalino Jung MD Primary Care Provider Unava Mika Lay DO Primary Care Provider Rabia jude Baig Pcp Primary Care Provider Jose E Vogt MD Primary Care Provider Unav Bharat Myers MD, PHD Unavailable Unava Darinel Thomas PA-C Unavailable [phone] Encounter Details Date Type Department Care Team Description 05/22/2020 Refill Medicine/Pediatrics [address] [phone] Sherley Hawkins PA-C [address] [place] [address] Social History Tobacco Use Types Packs/Day Years [...] region documented in this encounter Care Teams Health Safety Specialist Relationship Specialty Start Date End Date Rosalino Jung MD PCP - General Internal Medicine 11/11/17 07/21/20 Mika Le DO PCP - General Internal Medicine 07/22/20 [facility] PCP - General Internal Medicine 12/01/20 03/22/22 Jose E Dye MD PCP - General Family Practice 03/23/22 Bharat Anand MD, PHD Surgeon Neurosurgery 04/13/22 Darinel Sun PA-C [address] [place] [address] Specialist Neurosurgery 04/13/22 documented as of this encounter
--- OUTSIDE RECORDS SUMMARY | 2024-06-21 09:00 | XMS_ITS | Encounter Summary ---
Author Organization [facility] Address [address] [place] [address] Care Team Providers Care Director Of Knowledge Management Name Role Phone Viv Kauffman MD Primary Care Provider UnavailRosalino Nava MD Primary Care Provider Unava Mika Lay DO Primary Care Provider [facility], P[facility] Primary Care Provider UnavailJose E Miller MD Primary Care Provider Unav Bharat Myers MD, PHD Unavailable Unava ilDarinel Davis PA-C Unavailable [phone] Reason for Visit * Reason Onset Date Comments Orders Call 02/27/2015 Encounter Details Date Type Department Care Team Description 02/27/2015 Telephone Medicine/Pediatrics [address] [phone] Viv Kauffman MD Orders Call Social History Tobacco Use Types Packs/Day Years [...] encounter Miscellaneous Notes * Telephone Encounter - Lety Ozuna L.P.N. - 02/28/2015 9:34 AM EST I will fax the xray , but note contains sensitive dx To HIM for review * Telephone Encounter - Marcia Hu - 02/28/2015 9:15 AM EST MIGUEL should not be needed. We referred the patient * Telephone Encounter - Chioma Nuñez LPhongP.N. - 02/27/2015 3:46 PM EST Le me know when released is received * Telephone Encounter - Marilou Briceno - 02/27/2015 2:12 PM EST Jania calling from [facility] requesting the pt's last office notes and xray resultsto be faxed to [phone], they will be sending a release for this by fax. documented in this encounter Plan of Treatment Not on file documented as of this encounter Visit Diagnoses Not on filedocumented in this encounter Care Teams Director Of Knowledge Management Relationship Specialty Start Date End Date Viv Kauffman MD PCP - General Internal Medicine 01/17/15 11/10/17 Rosalino Jung MD PCP - General Internal Medicine 11/11/17 07/21/20 Mika Le DO PCP - General Internal Medicine 07/22/[address] [place] [address] Pcp PCP - General Internal Medicine 12/01/20 03/22/22 Jose E Dye MD PCP - General Family Practice 03/23/22 Bharat Anand MD, PHD Surgeon Neurosurgery 04/13/22 Darinel Sun PA-C [address] [facility] [address] [place], [place] [address] Specialist Neurosurgery 04/13/22 documented as of this encounter
--- OUTSIDE RECORDS SUMMARY | 2024-06-21 09:00 | XMS_ITS | Encounter Summary ---
Author Organization [facility] Address [address] [place] [address] Care Team Providers Care Client Delivery Manager Name Role Phone Rosalino Jung MD Primary Care Provider Unava Mika Lay DO Primary Care Provider Rabia Olaf Strauss Primary Care Provider Jose E Vogt MD Primary Care Provider Unav Bharat Myers MD, PHD Unavailable Unava Darinel Thomas PA-C Unavailable [phone] Encounter Details Date Type Department Care Team Description 01/27/2018 Orders Only Medicine/Pediatrics - [address] [phone] Rosalino Jung MD Encounter for long-term (current) [...] Type Priority Associated Diagnoses Orde r Schedule [facility] DRUG SCREENING CANNABINOIDS NATURAL Lab Routine Encounter for long-term (current) use of medications Expected: 01/27/2018, Expires: 01/27/2019 [facility] DRUG SCREENING COCAINE Lab Routine Encounter for long-term (current) use of medications Expected: 01/27/2018, Expires: 01/27/2019 [facility] DRUG SCREEN QUANT AMPHETAMINES 3 OR 4 Lab Routine Encounter for long-term (current) use of medications Expected: 01/27/2018, Expires: 01/27/2019 [facility] DRUG/SUBSTANCE DEFINITIVE QUAL/QUANT NOS 1-3 (BARBITUATES) Lab Routine Encounter for long-term (current) use of medications Expected: 01/27/2018, Expires: 01/27/2019 [facility] DRUG SCREENING BENZODIAZEPINES 1-12 Lab Routine Encounter for long-term (current) use of medications Expected: 01/27/2018, Expires: 01/27/2019 documented as of this encounter Results * (ABNORMAL) OXYCODONE, URINE (03/27/2018 9:08 AM EST) URINE OXYCODONE LEVEL POSITIVE( A) NEGATIVE 03/27/2018 3:12 PM EST [facility] Comment: Semi-quantitative urine assay for screening purposes only. Unconfirmed screening results should not be used for non-medical purposes. ALTERNATE METHOD CONFIRMATION DONE UPON REQUEST ONLY 03/27/2018 9:08 AM EST 03/27/2018 9:08 AM EST Rosalino Jung MD LAB Performing Organization Address City/State/[facility] Co de Phone Number [facility] [address] [place] [address] * DRUG OF ABUSE SCREEN (03/27/2018 9:08 AM EST) AMPHETAMINE, URINE NEGATIVE NEGATIVE 03/27/2018 2:45 PM EST [facility] BARBITURATES, URINE NEGATIVE NEGATIVE 03/27/2018 2:45 PM EST [facility] BENZODIAZEPINE , URINE NEGATIVE NEGATIVE 03/27/2018 2:45 PM EST [facility] COCAINE, URINE NEGATIVE NEGATIVE 03/27/2018 2:45 PM EST [facility] OPIATES, URINE NEGATIVE NEGATIVE 03/27/2018 2:45 PM EST [facility]) , URINE NEGATIVE NEGATIVE 03/27/2018 2:45 PM EST [facility] 03/27/2018 9:08 AM EST 03/27/2018 9:08 AM EST Rosalino Jung MD LAB Performing Organization Address City/State/[facility] Co de Phone Number [facility] [address] [facility] * G DRUG SCREENING OPIATES 1 OR [...] developed and the performance characteristics determined by [facility]. This confirmation testing has not been cleared or approved by the FDA. The laboratory is regulated under CLIA as qualified to perform high-complexity testing. This test is used for patient testing purposes. It should not be regarded as investigational or for research. Test performed at [facility], [address] [place] [id number] ? [phone] Doug Miner MD ??- Night Assistant Oxycodone GCMS 4057 ng/mL 03/31/2018 9:27 AM EST [facility] Oxymorphone GCMS 1196 ng/mL 03/31/19 9:27 AM EST [facility] 03/27/2018 9:08 AM EST 03/27/2018 9:08 AM EST Rosalino Jung MD LAB [facility] documented in this encounter Visit Diagnoses Diagnosis Encounter for long-term (current) use of medications- Primary Encounter for long-term (current) use of other medications documented in this encounter Care Teams Client Delivery Manager Relationship Specialty Start Date End Date Rosalino Jung MD PCP - General Internal Medicine 11/11/17 07/21/20 Mika Le DO PCP - General Internal Medicine 07/22/[address] [place] [address] PCP - General Internal Medicine 12/01/20 03/22/22 Jose E Dye MD PCP - General Family Practice 03/23/22 Bharat Anand MD, PHD Surgeon Neurosurgery 04/13/22 Darinel Sun PA-C [address] [facility] [address] [place] [address] Specialist Neurosurgery 04/13/22 documented as of this encounter
--- OUTSIDE RECORDS SUMMARY | 2024-06-21 09:00 | XMS_ITS | Encounter Summary ---
Author Organization [facility] Address [address] [place] [address] Care Team Providers Care Supervisor Data Processing Name Role Phone Rosalino Jung MD Primary Care Provider Unava ilable Mika Le DO Primary Care Provider Rabia varamírez [facility] Primary Care Provider Jose E Vogt MD Primary Care Provider Unav Bharat Myers MD, PHD Unavailable Unava ilable Darinel Sun PA-C Unavailable [phone] Reason for Referral * EXTERNAL (Priority) - Authorized/Booked Specialty Diagnoses / Procedures Referred By Contac t Referred To Contact ORTHOPEDICS / Orthopedic Diagnoses Failed back syndrome of lumbar spine Lumbar disc disease Spinal stenosis of lumbar region, unspecified whether neurogenic claudication present Procedures REFERRAL TO ORTHOPEDICS (OUT OF NETWORK) Rosalino Jung MD [address] [place] [id number] [place] [address] Orthopedic, Surgeons [address] [place] [address] Referral ID Status Reason Start Date Expiration Date V isits Requested Visits Authorized SEE NOTE Authorized/B ooked 04/20/2019 07/19/2019 1 1 Encounter Details Date Type Department Care Team Description 04/09/2019 Pt. Non Urgent Medical Question Medicine/Pediatrics - [address] [address] Rosalino Jung MD Failed back syndrome of lumbar spine (Primary Dx); Lumbar disc disease; Spinal stenosis of lumbar region, unspecified whether neurogenic claudication present Social History Tobacco Use Types Packs/Day Years [...] Progress Notes * Ivon Márquez M.A. - 04/17/2019 10:48 AM EST See [employer] message * Claudia Greene R.N. - 04/09/2019 2:30 PM ESTFrom: Aljeandro Caruso To: Rosalino Jung MD Sent: 04/09/2019 2:22 PM EST Subject: MRI RESULTS DR. Jung, I dont know what the results mean so can you give me a brief sonopsis of the results in a way I might understand better? Thanks in advance, Alejandro documented in this encounter Plan of Treatment Not on file documented as of this encounter Visit Diagnoses Diagnosis Failed back syndrome of lumbar spine- Primary Postlaminectomy syndrome, lumbar region Lumbar disc disease Other and unspecified disc disorder of lumbar region Spinal stenosis of lumbar region, unspecified whether neurogenic claudication present documented in this encounter Care Teams Supervisor Data Processing Relationship Specialty Start Date End Date Rosalino Jung MD PCP - General Internal Medicine 11/11/17 07/21/20 Mika Le DO PCP - General Internal Medicine 07/22/[address] [place] [address] Pcp PCP - General Internal Medicine 12/01/20 03/22/22 Jose E Dye MD PCP - General Family Practice 03/23/22 Bharat Anand MD, PHD Surgeon Neurosurgery 04/13/22 Darinel Sun PA-C [address] [place] [address] Specialist Neurosurgery 04/13/22 documented as of this encounter
--- OUTSIDE RECORDS SUMMARY | 2024-06-21 09:00 | XMS_ITS | Clinical Summary ---
Author Organization [facility] Address [address] [place] [address] Care Team Providers Care Learning Administrator Name Role Phone Jose E Dye MD Primary Care Provider Unav Bharat Myers MD, PHD Unavailable Unava ilDarinel Davis PA-C Unavailable [phone] Allergies Active Allergy Reactions Severity Noted Date [...] fluticasone (Flonase) 50 MCG/ACT nasal spray 1 [place] by Nasal route 2 times daily. 16 [...] head 10/20 Overview: Pe rxrays 09/2018 at [facility] ortho Dr. Ritter: severe bilateral femoral head [...] (2 - Td or Tdap) 10/17/2023 10/16/2013 BMI CHECK/ADVISE 03/21/2024 10/07/2020, , 02/19/2020, Additional history exists CHOLESTEROL SCREENING 03/23/2024 03/23/2019 , 05/24/2017, 07/14/2016, Additional history exists INFLUENZA (Season Ended) 2024 PNEUMOCOCCAL VACCINE FOR HIG H RISK PATIENTS (#1) 02/28/2033 Care Teams Learning Administrator Relationship Specialty Start Date End Date Jose E Dye MD PCP - General Family Practice 03/23/22 Bharat Anand MD, PHD Surgeon Neurosurgery 04/13/22 Darinel Sun PA-Walter [address] [place] [address] Specialist Neurosurgery 04/13/22
--- OUTSIDE RECORDS SUMMARY | 2024-06-21 09:00 | XMS_ITS | Encounter Summary ---
Author Organization [facility] Address [address] [place] [address] Care Team Providers Care Proof Load Mechanic Name Role Phone Jose E Dye MD Primary Care Provider Unav ailable Bharat Anand MD, PHD Unavailable Unava ilable Darinel Sun PA-C Unavailable [phone] Encounter Details Date Type Department Care Team Description 05/03/2022 Animal Cruelty Investigation Supervisor Report Medical Records [address] [place] [id number] Jose E Dye MD Social History Tobacco [...] on filedocumented in this encounter Care Teams Proof Load Mechanic Relationship Specialty Start Date End Date Jose E Dye MD PCP - General Family Practice 03/23/22 Bharat Anand MD, PHD Surgeon Neurosurgery 04/13/22 Darinel Sun PA-C [address] [place] [address] Specialist Neurosurgery 04/13/22 documented as of this encounter
--- OUTSIDE RECORDS SUMMARY | 2024-06-21 09:00 | XMS_ITS | Encounter Summary ---
Author Organization [facility] Address [address] [place] [address] Care Team Providers Care Outside Maintenance Worker Name Role Phone Valentin Gaviria MD Primary Care Provider Unavail able Viv Kauffman MD Primary Care Provider Unavaila Rosalino Kirby MD Primary Care Provider Unava ilable Mika Le DO Primary Care Provider Rabia vailable [facility], Pcp Primary Care Provider UnavailJose E Miller MD Primary Care Provider Unav Bharat Myers MD, PHD Unavailable Unava ilable Darinel Sun PA-C Unavailable [phone] Encounter Details Date Type Department Care Team Description 09/12/2012 Continuous Dryout Operator Helper Report Medical Records [address] [place] [address] Mika Duque Social History Tobacco Use Types [...] filedocumented in this encounter Care Teams Outside Maintenance Worker Relationship Specialty Start Date End Date Valentin [...] Surgeon Neurosurgery 04/13/22 Darinel Sun PA-C [address] [place] [address] Specialist Neurosurgery 04/13/22 documented as of this encounter
--- OUTSIDE RECORDS SUMMARY | 2024-06-21 09:00 | XMS_ITS | Encounter Summary ---
Author Organization [facility] Address [address] [place] [address] Care Team Providers Care Compressor Station Engineer Name Role Phone Valentin Gaviria MD Primary Care Provider Unavail able Viv Kauffman MD Primary Care Provider Unavaila Rosalino Kirby MD Primary Care Provider Unava ilable Mika Le DO Primary Care Provider Rabia vailable [facility], Pcp Primary Care Provider UnavailJose E Miller MD Primary Care Provider Unav Bharat Myers MD, PHD Unavailable Unava ilable Darinel Sun PA-C Unavailable [phone] Encounter Details Date Type Department Care Team Description 01/08/2015 Application Engineer Report Medical Records [address] [place] [address] [place] [address] [place], [place] [id number] Social History Tobacco Use Types Packs/Day Years [...] on filedocumented in this encounter Care Teams Compressor Station Engineer Relationship Specialty Start Date End Date Valentin Gaviria MD PCP - General 06/28/00 01/16/15 Viv Kauffman MD PCP - General Internal Medicine 01/17/15 11/10/17 Rosalino Jung MD PCP - General Internal Medicine 11/11/17 07/21/20 Mika Le DO PCP - General Internal Medicine 07/22/[address] [place] [address] PCP - General Internal Medicine 12/01/20 03/22/22 Jose E Dye MD PCP - General Family Practice 03/23/22 Bharat Anand MD, PHD Surgeon Neurosurgery 04/13/22 Darinel Sun PA-C [address] [place] [address] Specialist Neurosurgery 04/13/22 documented as of this encounter
--- OUTSIDE RECORDS SUMMARY | 2024-06-21 09:00 | XMS_ITS | Encounter Summary ---
Author Organization [facility] Address [address] [place] [address] Care Team Providers Care Chief Sustainability Officer Name Role Phone Rosalino Jung MD Primary Care Provider Unava Mika Lay DO Primary Care Provider Rabia jude Baig Pcp Primary Care Provider Jose E Vogt MD Primary Care Provider Unav Bharat Myers MD, PHD Unavailable Unava ilable Darinel Sun PA-C Unavailable [phone] Encounter Details Date Type Department Care Team Description 03/04/2019 Pt. Non Urgent Medic al Question Medicine/Pediatrics - [address] [address] Rosalino Jung MD Social History Tobacco Use [...] Progress Notes * Chioma Nuñez L.P.N. - 03/05/2019 8:49 AM ESTFrom: Alejandro Belleture To: Rosalino Jung MD Sent: 03/04/2019 5:27 PM EST Subject: Appointment 03.28.19 DR. Jung, I was wondering if we coud chage my appointment for my Physical and make that appointment for my back and I will just reschedule my Physical appointment. I really need to see someone soon because i can baeley walk, shower, cant drive, I was also wondering if we can change my Oxycodone scrip t to 20mg every 4 hours? i know that sounds like a lot but i need some relief from this pain. The pain was so bad I had to take 2 every 4 hours over the weekend, I couldn't take the pain anymore. Could you please let me finish this script by taking 2 10mg every 4 hours? And could you write me a scriot for the 20mg for next refill. This pain is actually worse then the hip pain. Thanks Alejandro documented in this encounter Plan of Treatment Not on file documented as of this encounter Visit Diagnoses Not on filedocumented in this encounter Care Teams Chief Sustainability Officer Relationship Specialty Start Date End Date Rosalino Jung MD PCP - General Internal Medicine 11/11/17 07/21/20 Mika Le DO PCP - General Internal Medicine 07/22/[address] [place] [address] PCP - General Internal Medicine 12/01/20 03/22/22 Jose E Dye MD PCP - General Family Practice 03/23/22 Bharat Anand MD, PHD Surgeon Neurosurgery 04/13/22 Darinel Sun PA-C [address] [place] [address] [place] [address] Specialist Neurosurgery 04/13/22 documented as of this encounter
--- OUTSIDE RECORDS SUMMARY | 2024-06-21 09:00 | XMS_ITS | Encounter Summary ---
Author Organization [facility] Address [address] [place] [address] Care Team Providers Care Grinder Name Role Phone Rosalino Jung MD Primary Care Provider Unava Mika Lay DO Primary Care Provider Rabia jude Baig [facility] Primary Care Provider Jose E Vogt MD Primary Care Provider UnaBharat Gomes MD, PHD Unavailable Unava ilable Darinel Sun PA-C Unavailable [phone] Reason for Visit * Reason Onset Date Comments Back Pain 05/16/2020 last appt with angela conti 03/09, Geovanna Perez 04/10/20 pt has been referred to pain amnagement Encounter Details Date Type Department Care Team Description 05/16/2020 Pt. 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
--- OUTSIDE RECORDS SUMMARY | 2024-06-21 09:01 | XMS_ITS | Encounter Summary ---
Author Organization [facility] Address [address] [place] [address] Care Team Providers Care Soap Grinder Name Role Phone Mika Le DO Primary Care Provider [facility] Primary Care Provider UnavailJose E Miller MD Primary Care Provider Unav ailBharat Seals MD, PHD Unavailable Unava ilDarinel Davis PA-C Unavailable [phone] Encounter Details Date Type Department Care Team Description 08/13/2020 Refill Adult Medicine [address] [address] Mika Le DO Social History Tobacco Use [...] on filedocumented in this encounter Care Teams Soap Grinder Relationship Specialty Start Date End Date Mika Le DO PCP - General Internal Medicine 07/22/[address] [place] [address] Pcp PCP - General Internal Medicine 12/01/20 03/22/22 Jose E Dye MD PCP - General Family Practice 03/23/22 Bharat Anand MD, PHD Surgeon Neurosurgery 04/13/22 Darinel Sun PA-C [address] [place] [address] Specialist Neurosurgery 04/13/22 documented as of this encounter
--- OUTSIDE RECORDS SUMMARY | 2024-06-21 09:01 | XMS_ITS | Encounter Summary ---
Author Organization [facility] Address [address] [place] [address] Care Team Providers Care Food Mixer Repairer Name Role Phone Viv Kauffman MD Primary Care Provider UnavailRosalino Nava MD Primary Care Provider Unava ilMika Maya DO Primary Care Provider Rabia [facility], Pcp Primary Care Provider UnavailJose E Miller MD Primary Care Provider Unav Bharat Myers MD, PHD Unavailable Unava ilDarinel Davis PA-C Unavailable [phone] Encounter Details Date Type Department Care Team Description 12/16/2016 Car Mechanic Helper Report Medical Records [address] [place] [address] [place], [facility] [address] [place] [id number] Social History Tobacco Use Types Packs/Day Years [...] on filedocumented in this encounter Care Teams Food Mixer Repairer Relationship Specialty Start Date End Date Viv Kauffman MD PCP - General Internal Medicine 01/17/15 11/10/17 Rosalino Jung MD PCP - General Internal Medicine 11/11/17 07/21/20 Mika Le DO PCP - General Internal Medicine 07/22/[address] [place] [address] PCP - General Internal Medicine 12/01/20 03/22/22 Jose E Dye MD PCP - General Family Practice 03/23/22 Bharat Anand MD, PHD Surgeon Neurosurgery 04/13/22 Darinel Sun PA-C [address] [place] [address] Specialist Neurosurgery 04/13/22 documented as of this encounter
--- OUTSIDE RECORDS SUMMARY | 2024-06-21 09:01 | XMS_ITS | Encounter Summary ---
Author Organization [facility] Address [address] [place] [address] Care Team Providers Care Head Concierge Name Role Phone Valentin Gaviria MD Primary Care Provider Unavail able Viv Kauffman MD Primary Care Provider Unavaila Rosalino Kirby MD Primary Care Provider Unava ilable Mika Le DO Primary Care Provider Rabia vailable [facility], Pcp Primary Care Provider UnavailJose E Miller MD Primary Care Provider Unav Bharat Myers MD, PHD Unavailable Unava ilable Darinel Sun PA-C Unavailable [phone] Encounter Details Date Type Department Care Team Description 09/28/2012 Transfer Records Medical Records [address] [place] [id number] Abstract, Provider Social History Tobacco Use Types [...] on filedocumented in this encounter Care Teams Head Concierge Relationship Specialty Start Date End Date Valentin Gaviria MD PCP - General 06/28/00 01/16/15 Viv Kauffman MD PCP - General Internal Medicine 01/17/15 11/10/17 Rosalino Jung MD PCP - General Internal Medicine 11/11/17 07/21/20 Mika Le DO PCP - General Internal Medicine 07/22/[address] [place] [address] PCP - General Internal Medicine 12/01/20 03/22/22 Jose E Dye MD PCP - General Family Practice 03/23/22 Bharat Anand MD, PHD Surgeon Neurosurgery 04/13/22 Darinel Sun PA-C [address] [place] [address] Specialist Neurosurgery 04/13/22 documented as of this encounter
--- OUTSIDE RECORDS SUMMARY | 2024-06-21 09:01 | XMS_ITS | Encounter Summary ---
Author Organization [facility] Address [address] [place] [address] Care Team Providers Care Projection Engineer Name Role Phone Rosalino Jung MD Primary Care Provider Unava Mika Lay DO Primary Care Provider Rabia Olaf Strauss Primary Care Provider Jose E Vogt MD Primary Care Provider Bharat Last MD, PHD Unavailable Unava Darinel Thomas PA-C Unavailable [phone] Encounter Details Date Type Department Care Team Description 03/23/2018 Transfer Records Medical Records [address] [place] [id number] Abstract, Provider Social History Tobacco Use Types [...] on filedocumented in this encounter Care Teams Projection Engineer Relationship Specialty Start Date End Date Rosalino Jung MD PCP - General Internal Medicine 11/11/17 07/21/20 Mika Le DO PCP - General Internal Medicine 07/22/[address] [place] [address] PCP - General Internal Medicine 12/01/20 03/22/22 Jose E Dye MD PCP - General Family Practice 03/23/22 Bharat Anand MD, PHD Surgeon Neurosurgery 04/13/22 Darinel Sun PA-C [address] [place] [address] Specialist Neurosurgery 04/13/22 documented as of this encounter
--- OUTSIDE RECORDS SUMMARY | 2024-06-21 09:01 | XMS_ITS | Encounter Summary ---
Author Organization [facility] Address [address] [place] [address] Care Team Providers Care Cake Decorator Name Role Phone Viv Kauffman MD Primary Care Provider UnavailRosalino Nava MD Primary Care Provider Unava ilable Mika Le DO Primary Care Provider Rabia [facility] [place], Pcp Primary Care Provider UnavailJose E Miller MD Primary Care Provider Unav Bharat Myers MD, PHD Unavailable Unava ilable Darinel Sun PA-C Unavailable [phone] Reason for Referral * EXTERNAL (Routine) - Authorized/Booked Specialty Diagnoses / Procedures Referred By Contact Referred To Contact ORTHOPEDICS / Orthopedic Procedures REFERRAL TO ORTHOPEDICS Viv Kauffman MD [address] [place] [address] Center[facility] [address] [place] [address] Referral ID Status Reason Start Date Expiration Date V isits Requested Visits Authorized SEE NOTE Authorized/B ooked 06/06/2017 09/07/2017 1 1 Reason for Visit * Reason Onset Date Comments REFERRAL 06/06/2017 Orthopedic Encounter Details Date Type Department Care Team Description 06/06/2017 Telephone Medicine/Pediatrics - [address] [phone] Viv Kauffman MD REFERRAL (Orthopedic) Social History Tobacco Use Types Packs/Day Years [...] encounter Miscellaneous Notes * Telephone Encounter - Randa Pan - 06/07/2017 8:[address] Ledesma. * Telephone Encounter - Viv Kauffman MD - 06/06/2017 4:51 PM EDT Ok thank you for reaching out to him. I ordered bilateral xrays of the knees and a referral to orthopedics has been placed. * Telephone Encounter - Randa Pan - 06/06/2017 1:32 PM EDT Caller requesting call back from provider: Viv Ledesma Is the caller the patient? YES If caller is not the patient, what is the callers name? N/A Callers relationship to patient? N/A If person calling is not the patient themselves, is there a verbal release in FYI or permanent comments for this person: YES Reason for call back: Hi , I spoke to this patient today from patient services, we discussed his mychart messages and he wanted me to tell you he apologizes to you for his frustration. We discussed his pain and I looked and see that he does not have a referral to public relations specialist for his Kneepain. I told him that I would ask you to enter a referral order for his knees , they both hurt a lot for a long time the patient said. He will be seeing physiatry on Tuesday06/08/17. Again he wanted to say he apologized for the my chart message. Caller offered to speak with the nurse for assistance: no Response: Viv Ledesma documented in this encounter Plan of Treatment Not on file documented as of this encounter Visit Diagnoses Diagnosis Chronic pain of both knees- Primary documented in this encounter Care Teams Cake Decorator Relationship Specialty Start Date End Date Viv Kauffman MD PCP - General Internal Medicine 01/17/15 11/10/17 Rosalino Jung MD PCP - General Internal Medicine 11/11/17 07/21/20 Mika Le DO PCP - General Internal Medicine 07/22/[address] [place] [address] PCP - General Internal Medicine 12/01/20 03/22/22 Jose E Dye MD PCP - General Family Practice 03/23/22 Bharat Anand MD, PHD Surgeon Neurosurgery 04/13/22 Darinel Sun PA-C [address] [place] [address] Specialist Neurosurgery 04/13/22 documented as of this encounter
--- OUTSIDE RECORDS SUMMARY | 2024-06-21 09:01 | XMS_ITS | Encounter Summary ---
Author Organization [facility] Address [address] [place] [address] Care Team Providers Care Commercial Development Manager Name Role Phone Rosalino Jung MD Primary Care Provider Unava Mika Lay DO Primary Care Provider Rabia jude Baig Pcp Primary Care Provider Jose E Vogt MD Primary Care Provider Unav Bharat Myers MD, PHD Unavailable Unava ilable Darinel Sun PA-C Unavailable [phone] Encounter Details Date Type Department Care Team Description 06/25/2019 Pt. Non Urgent Medic al Question Adult Medicine [address] [address] Rosalino Jung MD Social History Tobacco Use [...] Progress Notes * Chioma Nuñez L.P.N. - 06/25/2019 12:00 PM EDTFrom: Alejandro Caruso To: Rosalino Jung MD Sent: 06/25/2019 7:21 AM EDT Subject: Appointment 06-27-2019 DR. Jung, Do you still want to see me in person If my appointment is just a follow up? Everything is good on my end. Let me know what you want too do. Thanks in advance. Alejandro documented in this encounter Plan of Treatment Not on file documented as of this encounter Visit Diagnoses Not on filedocumented in this encounter Care Teams Commercial Development Manager Relationship Specialty Start Date End Date Rosalino Jung MD PCP - General Internal Medicine 11/11/17 07/21/20 Mika Le DO PCP - General Internal Medicine 07/22/20 [facility] [place] - [place] Internal Medicine 12/01/20 03/22/22 Jose E Dye MD PCP - General Family Practice 03/23/22 Bharat Anand MD, PHD Surgeon Neurosurgery 04/13/22 Darinel Sun PA-C [address] [place] [address] Specialist Neurosurgery 04/13/22 documented as of this encounter
--- OUTSIDE RECORDS SUMMARY | 2024-06-21 09:01 | XMS_ITS | Encounter Summary ---
Author Organization [facility] Address [address] [place] [address] Care Team Providers Care Personnel Records Clerk Name Role Phone Rosalino Jung MD Primary Care Provider Unava Mika Lay DO Primary Care Provider Rabia jude Baig Pcp Primary Care Provider Jose E Vogt MD Primary Care Provider Unav Bharat Myers MD, PHD Unavailable Unava ilable Darinel Sun PA-C Unavailable [phone] Encounter Details Date Type Department Care Team Description 11/26/2019 Pt. Non Urgent Medic al Question Adult Medicine [address] [address] Rosalino Jung MD Social History Tobacco Use [...] Progress Notes * Carlos Lara M.A. - 11/27/2019 10:18 AM EDTFrom: Alejandro Caruso To: Rosalino Jung MD Sent: 11/26/2019 2:16 PM EDT Subject: SV Pain Management Dr. Jung, First of all I can't believe you left me hanging over the long weekend after I told you my back pain was a10, ok I'm over that. SV PM doesn't give scrips so if your not going too write me a script for something for my back should I go back to the Orthopedic doctor you sent me too? If so who wa s it?? documented in this encounter Plan of Treatment Not on file documented as of this encounter Visit Diagnoses Not on filedocumented in this encounter Care Teams Personnel Records Clerk Relationship Specialty Start Date End Date Rosalino Jung MD PCP - General Internal Medicine 11/11/17 07/21/20 Mika Le DO PCP - General Internal Medicine 07/22/[address] [place] [address] PCP - General Internal Medicine 12/01/20 03/22/22 Jose E Dye MD PCP - General Family Practice 03/23/22 Bharat Anand MD, PHD Surgeon Neurosurgery 04/13/22 Darinel Sun PA-C [address] [place] [address] [place] [address] Specialist Neurosurgery 04/13/22 documented as of this encounter
--- OUTSIDE RECORDS SUMMARY | 2024-06-21 09:01 | XMS_ITS | Encounter Summary ---
[facility] Organization [facility] Address [address] [place] [address] Care Team Providers Care Retail Sales Merchandiser Name Role Phone Viv Kauffman MD Primary Care Provider Rosalino Dewey MD Primary Care Provider Unava ilMika Maya DO Primary Care Provider Rabia [facility], Pcp Primary Care Provider UnavailJose E Miller MD Primary Care Provider Unav Bharat Myers MD, PHD Unavailable Unava Darinel Thomas PA-C Unavailable Encounter Details Date Type Department Care Team Description 05/12/2017 Pt. Non Urgent Medical Question Medicine/Pediatrics - [address] [address] Viv Kauffman MD Social History Tobacco Use Types Packs/Day Years Used Date Smoking Tobacco: Every Day Cigarettes 1 18 Smokeless Tobacco: Current Comments:quit 06/27/15 Alcohol Use Standard Drinks/Week Comments [...] Progress Notes * Ivon Márquez M.A. - 05/12/2017 11:48 AM ESTFrom: Alejandro Caruso To: Viv Kauffman MD Sent: 05/12/2017 11:47 AM EST Subject: Sagrario Anderson, I really need something for my pain I can barley walk and now my hygiene is starting to lack do to the pain. documented in this encounter Plan of Treatment Not on file documented as of this encounter Visit Diagnoses Not on filedocumented in this encounter Care Teams Retail Sales Merchandiser Relationship Specialty Start Date End Date Viv Kauffman MD PCP - General Internal Medicine 01/17/15 11/10/17 Rosalino Jung MD PCP - General Internal Medicine 11/11/17 07/21/20 Mika Le DO PCP - General Internal Medicine 07/22/[address] [place] [address] PCP - General Internal Medicine 12/01/20 03/22/22 Jose E Dye MD PCP - General Family Practice 03/23/22 Bharat Anand MD, PHD Surgeon Neurosurgery 04/13/22 Darinel Sun PA-C [address] [place] [address] [place] [address] Specialist Neurosurgery 04/13/22 documented as of this encounter
--- OUTSIDE RECORDS SUMMARY | 2024-06-21 09:01 | XMS_ITS | Encounter Summary ---
Author Organization [facility] Address [address] [place] [address] Care Team Providers Care Gas Examiner Name Role Phone Rosalino Jung MD Primary Care Provider Unava Mika Lay DO Primary Care Provider Rabia jude Baig Pcp Primary Care Provider Jose E Vogt MD Primary Care Provider Unav Bharat Myers MD, PHD Unavailable Unava ilable Darinel Sun PA-C Unavailable [phone] Reason for Visit * Reason Onset Date Comments Medication 04/11/2019 prep Encounter Details Date Type Department Care Team Description 04/11/2019 Refill Gastroenterology - [address] [place] [address] Lois Stephens MD [address] [place] [address] [id number] Medication (prep) Social History Tobacco Use Types Packs/Day Years [...] on filedocumented in this encounter Care Teams Gas Examiner Relationship Specialty Start Date End Date Rosalino Jung MD PCP - General Internal Medicine 11/11/17 07/21/20 Mika Le DO PCP - General Internal Medicine 07/22/20 [facility] PCP - General Internal Medicine 12/01/20 03/22/22 Jose E Dye MD PCP - General Family Practice 03/23/22 Bharat Anand MD, PHD Surgeon Neurosurgery 04/13/22 Darinel Sun PA-C [address] [place] [address] Specialist Neurosurgery 04/13/22 documented as of this encounter
--- OUTSIDE RECORDS SUMMARY | 2024-06-21 09:01 | XMS_ITS | Encounter Summary ---
Author Organization [facility] Address [address] [place] [address] Care Team Providers Care Criminal Judge Name Role Phone Rosalino Jung MD Primary Care Provider Unava Mika Lay DO Primary Care Provider Rabia jude Baig Pcp Primary Care Provider Jose E Vogt MD Primary Care Provider Unav Bharat Myers MD, PHD Unavailable Unava ilable Darinel Sun PA-C Unavailable [phone] Encounter Details Date Type Department Care Team Description 08/08/2018 Pt. Non Urgent Medic al Question Medicine/Pediatrics - [address] [address] Rosalino Jung MD Social History Tobacco Use [...] on filedocumented in this encounter Care Teams Criminal Judge Relationship Specialty Start Date End Date Rosalino Jung MD PCP - General Internal Medicine 11/11/17 07/21/20 Mika Le DO PCP - General Internal Medicine 07/22/20 1 [facility] PCP - General Internal Medicine 12/01/20 03/22/22 Jose E Dye MD PCP - General Family Practice 03/23/22 Bharat Anand MD, PHD Surgeon Neurosurgery 04/13/22 Darinel Sun PA-C 175 [facility] [address] [place] [address] Specialist Neurosurgery 04/13/22 documented as of this encounter
--- OUTSIDE RECORDS SUMMARY | 2024-06-21 09:01 | XMS_ITS | Encounter Summary ---
Author Organization [facility] Address [address] [place] [address] Care Team Providers Care Deputy Director Of Finance Name Role Phone Juna Jung MD Primary Care Provider Unava Mika Lay DO Primary Care Provider Rabia jude Baig Pcp Primary Care Provider Jose E Vogt MD Primary Care Provider Unav Bharat Myers MD, PHD Unavailable Unava ilable Darinel Sun PA-C Unavailable [phone] Encounter Details Date Type Department Care Team Description 12/07/2018 Refill Medicine/Pediatrics - [address] [address] Juan Jung MD Social History Tobacco Use [...] encounter Miscellaneous Notes * Telephone Encounter - Jaylin Harper M.A. - 12/07/2018 1:41 PM EDT Rx to be placed in patient pick-up. ID Required * Telephone Encounter - Claudia Greene R.N. - 12/07/2018 1:17 PM EDT FYI:Spoke with patient and states was put on oxycodone and heading to ortho surgeon at 1:45 will ask surgeon for refill on pain medication. States pain in right hip is good but now pain in left hip is off the chart 10/28 states will need surgury on that hip and pain medication until he gets surgery.Advised him orthopedic surgeon should be managing his pain. States will talk with him and get back to us. * Telephone Encounter - Juan Jung MD - 12/07/2018 12:15 PM EDT [facility] report reviewed today for Alejandro [facility] [employer] [facility] for one tab daily which is what his dosing was leading up to his surgery. Pain management for right hip post op needs to be by ortho. If ortho write script he will rip this one up as only one provider should be providing pain management at this time. * Telephone Encounter - Claudia Greene R.N. - 12/07/2018 11:43 AM EDT Last refill:10/31/18 Lab Results Component Value Date URBENZO NEGATIVE 03/27/2018 UROPIATES NEGATIVE 03/27/2018 URBARBITUATE NEGATIVE 03/27/2018 URAMPHETAMIN NEGATIVE 03/27/2018 URCOCAINE NEGATIVE 03/27/2018 URMARIJUANA NEGATIVE 03/27/2018 Controlled substance contract and last issue date of medication reviewed. Patient is due for medication. * Telephone Encounter - Claudia Greene R.N. - 12/07/2018 11:43 AM EDTFrom: Alejandro Caruso To: Juan Jung MD Sent: 12/07/2018 10:44 AM EDT Subject: Medication Renewal Request Original authorizing provider: MD Alejandro CHÁVEZ would like a refill of the following medications: oxyCODONE HCl 10 MG Tab [JUAN JUNG MD] Preferred pharmacy: [id number] Comment: Dr. Jung, Could you please refill this prescription do to the fact my left hip is as bad as my right was before surgery and I need a total hip replacement on my left hip I just don't have an appointment date yet. I have a appointment to get the ela out today and I hope to get a date for my second surgery. the pain I am in is the same level a 10 as my right hip was. If the surgeon is willing to give me another prescription we can just void yours but I won't know until later today. Thanks documented in this encounter Plan of Treatment Not on file documented as of this encounter Visit Diagnoses Diagnosis Lumbar disc disease Other and unspecified disc disorder of lumbar region documented in this encounter Care Teams Deputy Director Of Finance Relationship Specialty Start Date End Date Juan Jung MD PCP - General Internal Medicine 11/11/17 07/21/20 Mika Le DO PCP - General Internal Medicine 07/22/[address] [place] [address] PCP - General Internal Medicine 12/01/20 03/22/22 Jose E Dye MD PCP - General Family Practice 03/23/22 Bharat Anand MD, PHD Surgeon Neurosurgery 04/13/22 Darinel Sun PA-C 175 [facility] [address] [place] [address] Specialist Neurosurgery 04/13/22 documented as of this encounter
--- OUTSIDE RECORDS SUMMARY | 2024-06-21 09:01 | XMS_ITS | Encounter Summary ---
Author Organization [facility] Address [address] [place] [address] Care Team Providers Care Log Chain Feeder Name Role Phone Mika Le DO Primary Care [facility] Primary Care Provider UnavailJose E Miller MD Primary Care Provider Unav ailBharat Seals MD, PHD Unavailable Unava ilDarinel Davis PA-C Unavailable [phone] Encounter Details Date Type Department Care Team Description 08/15/2020 Pt. Non Urgent Medic al Question Adult Medicine [address] [address] Mika Le DO Social History Tobacco Use [...] on filedocumented in this encounter Care Teams Log Chain Feeder Relationship Specialty Start Date End Date Mika Le DO PCP - General Internal Medicine 07/22/20 1 [facility] PCP - General Internal Medicine 12/01/20 03/22/22 Jose E Dye MD PCP - General Family Practice 03/23/22 Bharat Anand MD, PHD Surgeon Neurosurgery 04/13/22 Darinel Sun PA-C [address] [place] [address] Specialist Neurosurgery 04/13/22 documented as of this encounter
--- OUTSIDE RECORDS SUMMARY | 2024-06-21 09:01 | XMS_ITS | Encounter Summary ---
Author Organization [facility] Address [address] [place] [address] Care Team Providers Care Java Tech Name Role Phone Viv Kauffman MD Primary Care Provider UnavailRosalino Nava MD Primary Care Provider Unava Mika Lay DO Primary Care Provider [facility], Pcp Primary Care Provider UnavailJose E Miller MD Primary Care Provider Unav Bharat Myers MD, PHD Unavailable Unava Darinel Thomas PA-C Unavailable [phone] Encounter Details Date Type Department Care Team Description 07/24/2015 Release of Information Medical Records [address] [place] [id number] Abstract, Provider Social History Tobacco Use Types [...] on filedocumented in this encounter Care Teams Java Tech Relationship Specialty Start Date End Date Viv Kauffman MD PCP - General Internal Medicine 01/17/15 11/10/17 Rosalino Jung MD PCP - General Internal Medicine 11/11/17 07/21/20 Mika Le DO PCP - General Internal Medicine 07/22/20 [facility] PCP - General Internal Medicine 12/01/20 03/22/22 Jose E Dey MD PCP - General Family Practice 03/23/22 Bharat Anand MD, PHD Surgeon Neurosurgery 04/13/22 Darinel Sun PA-C [address] [place] [address] Specialist Neurosurgery 04/13/22 documented as of this encounter
--- OUTSIDE RECORDS SUMMARY | 2024-06-21 09:01 | XMS_ITS | Encounter Summary ---
Author Organization [facility] Address [address] [place] [address] Care Team Providers Care Metal Patternmaker Name Role Phone Viv Kauffman MD Primary Care Provider UnavailRosalino Nava MD Primary Care Provider Unava Mika Lay DO Primary Care Provider [facility], Pcp Primary Care Provider UnavailJose E Miller MD Primary Care Provider Unav Bahrat Myers MD, PHD Unavailable Unava Darinel Thoams PA-C Unavailable [phone] Encounter Details Date Type Department Care Team Description 06/09/2015 Risk Control Manager Report Medical Records [address] [place] [address] Darinel Campbell DO Social History Tobacco Use [...] on filedocumented in this encounter Care Teams Metal Patternmaker Relationship Specialty Start Date End Date Viv [...] Surgeon Neurosurgery 04/13/22 Darinel Sun PA-C [address] [place] [address] Specialist Neurosurgery 04/13/22 documented as of this encounter
--- OUTSIDE RECORDS SUMMARY | 2024-06-21 09:01 | XMS_ITS | Encounter Summary ---
Author Organization [facility] Address [address] [place] [address] Care Team Providers Care Manager Of Recruiting Name Role Phone Valentin Gaviria MD Primary Care Provider Unavail able Viv Kauffman MD Primary Care Provider Unavaila Rosalino Kirby MD Primary Care Provider Unava ilable Miak Le DO Primary Care Provider Rabia vailable [facility], Pcp Primary Care Provider UnavailJose E Miller MD Primary Care Provider Unav Bharat Myers MD, PHD Unavailable Unava ilable Darinel Sun PA-C Unavailable [phone] Encounter Details Date Type Department Care Team Description 01/10/2013 Controlled Substance Plan Medical Records [address] [place] [address] Abstract, Provider Social History Tobacco Use Types [...] filedocumented in this encounter Care Teams Manager Of Recruiting Relationship Specialty Start Date End Date Valentin [...] Surgeon Neurosurgery 04/13/22 Darinel Sun PA-C [address] [place] [address] Specialist Neurosurgery 04/13/22 documented as of this encounter
--- OUTSIDE RECORDS SUMMARY | 2024-06-21 09:01 | XMS_ITS | Encounter Summary ---
Author Organization [facility] Address [address] [place] [address] Care Team Providers Care Schedule Announcer Name Role Phone Mika Le DO Primary Care Provider Rabia vailable [facility], Pcp Primary Care Provider Jose E Vogt MD Primary Care Provider Unav ailable Bharat Anand MD, PHD Unavailable Unava ilDarinel Davis PA-C Unavailable [phone] Reason for Referral * EXTERNAL (Priority) - Authorized/Booked Specialty Diagnoses / Procedures Referred By Contact Referred To Contact Otolaryngology / EarNoseThroat Procedures REFERRAL TO EAR, NOSE & THROAT Ida Leon NP [address] [place] [address] External Ent Referral ID Status Reason Start Date Expiration Date V isits Requested Visits Authorized [id number] Authorized/B ooked 09/19/2020 12/26/2020 1 1 Encounter Details Date Type Department Care Team Description 09/05/2020 Pt. Non Urgent Medic al Question Adult Medicine [address] [address] Mika Le DO Social History Tobacco Use [...] on filedocumented in this encounter Care Teams Schedule Announcer Relationship Specialty Start Date End Date Mika Le DO PCP - General Internal Medicine 07/22/[address] [place] [address] PCP - General Internal Medicine 12/01/20 03/22/22 Jose E Dye MD PCP - General Family Practice 03/23/22 Bharat Anand MD, PHD Surgeon Neurosurgery 04/13/22 Darinel Sun PA-C [address] [place] [address] [place] [address] Specialist Neurosurgery 04/13/22 documented as of this encounter
--- OUTSIDE RECORDS SUMMARY | 2024-06-21 09:01 | XMS_ITS | Encounter Summary ---
[facility] Address [address] [place] [address] Care Team Providers Care Advanced Practice Rn Name Role Phone Rosalino Jung MD Primary Care Provider Unava Mika Lay DO Primary Care Provider Rabia Olaf Strauss Primary Care Provider Jose E Vogt MD Primary Care Provider UnaBharat Gomes MD, PHD Unavailable Unava Darinel Thomas PA-C Unavailable [phone] Encounter Details Date Type Department Care Team Description 04/03/2018 [facility] Medical Records [address] [place] [address] Abstract, Provider Social History Tobacco Use Types [...] on filedocumented in this encounter Care Teams Advanced Practice Rn Relationship Specialty Start Date End Date Rosalino Jung MD PCP - General Internal Medicine 11/11/17 07/21/20 Mika Le DO PCP - General Internal Medicine 07/22/20 [facility] PCP - General Internal Medicine 12/01/20 03/22/22 Jose E Dye MD PCP - General Family Practice 03/23/22 Bharat Anand MD, PHD Surgeon Neurosurgery 04/13/22 Darinel Sun PA-C [address] [place] [address] Specialist Neurosurgery 04/13/22 documented as of this encounter
--- OUTSIDE RECORDS SUMMARY | 2024-06-21 09:01 | XMS_ITS | Encounter Summary ---
Author Organization [facility] Address [address] [place] [address] Care Team Providers Care Manager Of Security Name Role Phone Viv Kauffman MD Primary Care Provider UnavailRosalino Nava MD Primary Care Provider Unava Mika Lay DO Primary Care Provider Rabia [facility], Pcp Primary Care Provider UnavailJose E Miller MD Primary Care Provider Unav Bharat Myers MD, PHD Unavailable Unava Darinel Thomas PA-C Unavailable [phone] Encounter Details Date Type Department Care Team Description 06/06/2017 Pt. Non Urgent Medic al Question Medicine/Pediatrics - [address] [address] Noni Agudelo PA-C Social History Tobacco Use Types Packs/Day [...] of this encounter Progress Notes * Chioma SalcedoP.N. - 06/06/2017 11:47 AM EDTFrom: Alejandro Caruso To: Noni Agudelo PA-C Sent: 06/06/2017 11:41 AM EDT Subject: Medical Records Noni, Could you please check to see if you received my records from [facility]? Thanks Alejandro documented in this encounter Plan of Treatment Not on file documented as of this encounter Visit Diagnoses Not on filedocumented in this encounter Care Teams Manager Of Security Relationship Specialty Start Date End Date Viv Kauffman MD PCP - General Internal Medicine 01/17/15 11/10/17 Rosalino Jung MD PCP - General Internal Medicine 11/11/17 07/21/20 Mika Le DO PCP - General Internal Medicine 07/22/[address] [place] [address] PCP - General Internal Medicine 12/01/20 03/22/22 Jose E Dye MD PCP - General Family Practice 03/23/22 Bharat Anand MD, PHD Surgeon Neurosurgery 04/13/22 Darinel Sun PA-C [address] [place] [address] Specialist Neurosurgery 04/13/22 documented as of this encounter
--- OUTSIDE RECORDS SUMMARY | 2024-06-21 09:01 | XMS_ITS | Encounter Summary ---
Author Organization [facility] Address [address] [place] [address] Care Team Providers Care Academic Support Coordinator Name Role Phone Rosalino Jung MD Primary Care Provider Unava Mika Lay DO Primary Care Provider Rabia Olaf Strauss Primary Care Provider Jose E Vogt MD Primary Care Provider Unav Bharat Myers MD, PHD Unavailable Unava ilDarinel Davis PA-C Unavailable [phone] Encounter Details Date Type Department Care Team Description 08/03/2018 Rubber Goods Inspector Report Medical Records [address] [place] [address] Valentin Riggs Social History Tobacco Use Types [...] on filedocumented in this encounter Care Teams Academic Support Coordinator Relationship Specialty Start Date End Date Rosalino Jung MD PCP - General Internal Medicine 11/11/17 07/21/20 Mika Le DO PCP - General Internal Medicine 07/22/20 [facility] PCP - General Internal Medicine 12/01/20 03/22/22 Jose E Dye MD PCP - General Family Practice 03/23/22 Bharat Anand MD, PHD Surgeon Neurosurgery 04/13/22 Darinel Sun PA-C [address] [place] [address] Specialist Neurosurgery 04/13/22 documented as of this encounter
--- OUTSIDE RECORDS SUMMARY | 2024-06-21 09:01 | XMS_ITS | Encounter Summary ---
Author Organization [facility] Address [address] [place] [address] Care Team Providers Care Brickmason Supervisor Name Role Phone Viv Kauffman MD Primary Care Provider UnavailRosalino Nava MD Primary Care Provider Unava Mika Lay DO Primary Care Provider Rabia [facility], Pcp Primary Care Provider UnavailJose E Miller MD Primary Care Provider Unav Bharta Myers MD, PHD Unavailable Unava ilDarinel Davis PA-C Unavailable [phone] Reason for Visit * Reason Onset Date Comments Medical Records 05/24/2017 Encounter Details Date Type Department Care Team Description 05/24/2017 Telephone Medicine/Pediatrics [address] [phone] Viv Kauffman MD Medical Records Social History [...] Miscellaneous Notes * Telephone Encounter - Talita Bailey - 05/24/2017 2:05 PM EST [facility] received for [facility] Faxed request to medical records Request in darrell folder at check in documented in this encounter Plan of Treatment Not on file documented as of this encounter Visit Diagnoses Not on filedocumented in this encounter Care Teams Brickmason Supervisor Relationship Specialty Start Date End Date Viv Kauffman MD PCP - General Internal Medicine 01/17/15 11/10/17 Rosalino Jung MD PCP - General Internal Medicine 11/11/17 07/21/20 Mika Le DO PCP - General Internal Medicine 07/22/[address] [place] [address] PCP - General Internal Medicine 12/01/20 03/22/22 Jose E Dye MD PCP - General Family Practice 03/23/22 Bharat Anand MD, PHD Surgeon Neurosurgery 04/13/22 Darinel Sun PA-C [address] [place] [address] Specialist Neurosurgery 04/13/22 documented as of this encounter
--- OUTSIDE RECORDS SUMMARY | 2024-06-21 09:01 | XMS_ITS | Encounter Summary ---
Author Organization [facility] Address [address] [place] [address] Care Team Providers Care Accessioner Name Role Phone Viv Kauffman MD Primary Care Provider UnavailRosalino Nava MD Primary Care Provider Unava Mika Lay DO Primary Care Provider Rabia [facility], Pcp Primary Care Provider UnavailJose E Miller MD Primary Care Provider Unav Bharat Myers MD, PHD Unavailable Unava Darinel Thomas PA-C Unavailable [phone] Encounter Details Date Type Department Care Team Description 07/08/2015 BACTERIOLOGIST FISHERY/[facility] Report Medical Records [address] [place] [address] Abstract, Provider Social History Tobacco Use Types [...] on filedocumented in this encounter Care Teams Accessioner Relationship Specialty Start Date End Date Viv [...] Surgeon Neurosurgery 04/13/22 Darinel Sun PA-C [address] [place] [address] Specialist Neurosurgery 04/13/22 documented as of this encounter
--- OUTSIDE RECORDS SUMMARY | 2024-06-21 09:01 | XMS_ITS | Encounter Summary ---
Author Organization [facility] Address [address] [place] [address] Care Team Providers Care Armored Vehicle Officer Name Role Phone Valentin Gaviria MD Primary Care Provider Unavail able Viv Kauffman MD Primary Care Provider Unavaila Rosalino Kirby MD Primary Care Provider Unava ilable Mika Le DO Primary Care Provider Rabia vailable [facility], Pcp Primary Care Provider UnavailJose E Miller MD Primary Care Provider Unav Bharat Myers MD, PHD Unavailable Unava ilable Darinel Sun PA-C Unavailable [phone] Encounter Details Date Type Department Care Team Description 06/05/2014 Cpc Coder Report Medical Records [address] [place] [address] Valentin Leonard Social History Tobacco Use Types [...] on filedocumented in this encounter Care Teams Armored Vehicle Officer Relationship Specialty Start Date End Date Valentin Gaviria MD PCP - General 06/28/00 01/16/15 Viv Kauffman MD PCP - General Internal Medicine 01/17/15 11/10/17 Rosalino Jung MD PCP - General Internal Medicine 11/11/17 07/21/20 Mika Le DO PCP - General Internal Medicine 07/22/[address] [place] [address] PCP - General Internal Medicine 12/01/20 03/22/22 Jose E Dye MD PCP - General Family Practice 03/23/22 Bharat Anand MD, PHD Surgeon Neurosurgery 04/13/22 Darinel Sun PA-C [address] [place] [address] Specialist Neurosurgery 04/13/22 documented as of this encounter
--- OUTSIDE RECORDS SUMMARY | 2024-06-21 09:01 | XMS_ITS | Encounter Summary ---
Author Organization [facility] Address [address] [place] [address] Care Team Providers Care Floor Director Name Role Phone Valentin Gaviria MD Primary Care Provider Unavail able Viv Kauffman MD Primary Care Provider Unavaila Rosalino Kirby MD Primary Care Provider Unava ilable Mika Le DO Primary Care Provider Rabia vailable [facility], Pcp Primary Care Provider UnavailJose E Miller MD Primary Care Provider Unav Bharat Myers MD, PHD Unavailable Unava ilable Darinel Sun PA-C Unavailable [phone] Encounter Details Date Type Department Care Team Description 03/06/2014 Emergency Medical Technician/Driver Report Medical Records [address] [place] [address] [place] [address] [place], [place] [id number] Social History Tobacco Use Types Packs/Day Years [...] on filedocumented in this encounter Care Teams Floor Director Relationship Specialty Start Date End Date Valentin Gaviria MD PCP - General 06/28/00 01/16/15 Viv Kauffman MD PCP - General Internal Medicine 01/17/15 11/10/17 Rosalino Jung MD PCP - General Internal Medicine 11/11/17 07/21/20 Mika Le DO PCP - General Internal Medicine 07/22/[address] [place] [address] PCP - General Internal Medicine 12/01/20 03/22/22 Jose E Dye MD PCP - General Family Practice 03/23/22 Bharat Anand MD, PHD Surgeon Neurosurgery 04/13/22 Darinel Sun PA-C [address] [place] [address] Specialist Neurosurgery 04/13/22 documented as of this encounter
--- OUTSIDE RECORDS SUMMARY | 2024-06-21 09:01 | XMS_ITS | Encounter Summary ---
[facility] Organization [facility] Address [address] [place] [address] Care Team Providers Care Shoe Trimmer Name Role Phone Mika Le DO Primary Care Provider [facility] Primary Care Provider UnavailJose E Miller MD Primary Care Provider Unav ailBharat Seals MD, PHD Unavailable Unava ilDarinel Davis PA-C Unavailable [phone] Encounter Details Date Type Department Care Team Description 10/16/2020 Pt. Non Urgent Medic al Question Adult Medicine [address] [address] Mika Le DO Social History Tobacco Use [...] encounter Miscellaneous Notes * Telephone Encounter - Alis Whaley - 10/16/2020 1:57 PM EDT Appt scheduled * Telephone Encounter - Chioma Cha M.A. - 10/16/2020 7:58 AM EDTFrom: Alejandro Caruso To: Geovanna Le Sent: 10/16/2020 3:53 AM EDT Subject: Prescription DR. 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 documented in this encounter Plan of Treatment Not on file documented as of this encounter Visit Diagnoses Not on filedocumented in this encounter Care Teams Shoe Trimmer Relationship Specialty Start Date End Date Mika Le DO PCP - General Internal Medicine 07/22/20 [facility] PCP - General Internal Medicine 12/01/20 03/22/22 Jose E Dye MD PCP - General Family Practice 03/23/22 Bharat Anand MD, PHD Surgeon Neurosurgery 04/13/22 Darinel Sun PA-C [address] [place] [address] Specialist Neurosurgery 04/13/22 documented as of this encounter
--- OUTSIDE RECORDS SUMMARY | 2024-06-21 09:01 | XMS_ITS | Encounter Summary ---
Author Organization [facility] Address [address] [place] [address] Care Team Providers Care Painter Name Role Phone Viv Kauffman MD Primary Care Provider UnavailRosalino Nava MD Primary Care Provider Unava Mika Lay DO Primary [facility], Pcp Primary Care Provider UnavailJose E Miller MD Primary Care Provider Unav Bharat Myers MD, PHD Unavailable Unava Darinel Thomas PA-C Unavailable [phone] Encounter Details Date Type Department Care Team Description 03/29/2017 Telephone Worker Report Medical Records [address] [place] [address] Valentin Leonard Social History Tobacco Use Types [...] on filedocumented in this encounter Care Teams Painter Relationship Specialty Start Date End Date Viv [...] Surgeon Neurosurgery 04/13/22 Darinel Sun PA-C [address] [place] [address] Specialist Neurosurgery 04/13/22 documented as of this encounter
--- OUTSIDE RECORDS SUMMARY | 2024-06-21 09:01 | XMS_ITS | Encounter Summary ---
Author Organization [facility] Address [address] [place] [address] Care Team Providers Care Corn Cutter Operator Name Role Phone Juan Jung MD Primary Care Provider Unava Mika Lay DO Primary Care Provider Rabia jude Baig Pcp Primary Care Provider Jose E Vogt MD Primary Care Provider Unav Bharat Myers MD, PHD Unavailable Unava ilable Darinel Sun PA-C Unavailable [phone] Encounter Details Date Type Department Care Team Description 04/14/2018 Refill Medicine/Pediatrics [address] [address] Juan Jung MD Social History Tobacco Use [...] Truong M.A. - 04/14/2018 11:36 AM EST Jun Group message sent to pt. * Telephone Encounter - Sary Truong M.A. - 04/14/2018 11:33 AM ESTFrom: Alejandro Caruso To: Juan Jung MD Sent: 04/14/2018 10:05 AM EST Subject: Medication Renewal Request Original authorizing provider: MD Alejandro CHÁVEZ would like a refill of the following medications: amlodipine (NORVASC) 5 MG tablet [JUAN JUNG MD] Preferred pharmacy: [id number] [place] [address] Comment: DR. Jung, [facility] just sent me an email saying that my doctor didn't authorize the refill of Amlodipine that I requested earlier this week. Could someone please check into this? Thank you, Alejandro documented in this encounter Plan of Treatment Not on file documented as of this encounter Visit Diagnoses Diagnosis Essential hypertension Unspecified essential hypertension documented in this encounter Care Teams Corn Cutter Operator Relationship Specialty Start Date End Date Juan Jung MD PCP - General Internal Medicine 11/11/17 07/21/20 Mika Le DO PCP - General Internal Medicine 07/22/[address] [place] [address] PCP - General Internal Medicine 12/01/20 03/22/22 Jose E Dye MD PCP - General Family Practice 03/23/22 Bharat Anand MD, PHD Surgeon Neurosurgery 04/13/22 Darinel Sun PA-C [address] [place] [address] Specialist Neurosurgery 04/13/22 documented as of this encounter
--- OUTSIDE RECORDS SUMMARY | 2024-06-21 09:01 | XMS_ITS | Encounter Summary ---
Author Organization [facility] Address [address] [place] [address] Care Team Providers Care Server Software Engineer Name Role Phone Rosalino Jung MD Primary Care Provider Unava Mika Lay DO Primary Care Provider Rabia Olaf Strauss Primary Care Provider Jose E Vogt MD Primary Care Provider Bharat Last MD, PHD Unavailable Unava Darinel Thomas PA-C Unavailable [phone] Encounter Details Date Type Department Care Team Description 07/26/2018 Transfer Records Medical Records [address] [place] [address] Abstract, Provider Social History Tobacco Use Types [...] on filedocumented in this encounter Care Teams Server Software Engineer Relationship Specialty Start Date End Date Rosalino Jung MD PCP - General Internal Medicine 11/11/17 07/21/20 Mika Le DO PCP - General Internal Medicine 07/22/[address] [place] [address] PCP - General Internal Medicine 12/01/20 03/22/22 Jose E Dye MD PCP - General Family Practice 03/23/22 Bharat Anand MD, PHD Surgeon Neurosurgery 04/13/22 Darinel Sun PA-C [address] [place] [address] Specialist Neurosurgery 04/13/22 documented as of this encounter
--- OUTSIDE RECORDS SUMMARY | 2024-06-21 09:01 | XMS_ITS | Encounter Summary ---
Author Organization [facility] Address [address] [place] [address] Care Team Providers Care Manager Economic Name Role Phone Rosalino Jung MD Primary Care Provider Unava Mika Lay DO Primary Care Provider Rabia jude Baig [facility] Primary Care Provider Jose E Vogt MD Primary Care Provider UnaBharat Gomes MD, PHD Unavailable Unava Darinel Thomas PA-C Unavailable [phone] Encounter Details Date Type Department Care Team Description 10/09/2018 Foam Cutting Supervisor Report Medical Records [address] [place] [address] Petr Ritter MD Social History Tobacco Use [...] filedocumented in this encounter Care Teams Manager Economic Relationship Specialty Start Date End Date Rosalino Jung MD PCP - General Internal Medicine 11/11/17 07/21/20 Mika Le DO PCP - General Internal Medicine 07/22/20 [facility] PCP - General Internal Medicine 12/01/20 03/22/22 Jose E Dye MD PCP - General Family Practice 03/23/22 Bharat Anand MD, PHD Surgeon Neurosurgery 04/13/22 Darinel Sun PA-C [address] [place] [address] Specialist Neurosurgery 04/13/22 documented as of this encounter
--- OUTSIDE RECORDS SUMMARY | 2024-06-21 09:01 | XMS_ITS | Encounter Summary ---
Author Organization [facility] Address [address] [place] [address] Care Team Providers Care Entertainment Reporter Name Role Phone Valentin Gaviria MD Primary Care Provider Unavail able Viv Kauffman MD Primary Care Provider Unavaila Rosalino Kirby MD Primary Care Provider Unava ilable Mika Le DO Primary Care Provider Rabia vailable [facility], Pcp Primary Care Provider UnavailJose E Miller MD Primary Care Provider Unav Bharat Myers MD, PHD Unavailable Unava ilable Darinel Sun PA-C Unavailable [phone] Encounter Details Date Type Department Care Team Description 01/12/2013 GATE ATTENDANT/MassPat Report Medical Records [address] [place] [address] Abstract, Provider Social History Tobacco Use Types [...] on filedocumented in this encounter Care Teams Entertainment Reporter Relationship Specialty Start Date End Date Valentin [...] Surgeon Neurosurgery 04/13/22 Darinel Sun PA-C [address] [place] [address] Specialist Neurosurgery 04/13/22 documented as of this encounter
--- OUTSIDE RECORDS SUMMARY | 2024-06-21 09:01 | XMS_ITS | Encounter Summary ---
Author Organization [facility] Address [address] [place] [address] Care Team Providers Care Dietary Services Director Name Role Phone Rosalino Jung MD Primary Care Provider Unava Mika Lay DO Primary Care Provider Rabia jude Baig [facility] Primary Care Provider Jose E Vogt MD Primary Care Provider Unav Bharat Myers MD, PHD Unavailable Unava ilable Darinel Sun PA-C Unavailable [phone] Encounter Details Date Type Department Care Team Description 11/24/2018 [facility] Medical Records [address] [place] [address] Viv Kauffman MD Social History Tobacco Use [...] on filedocumented in this encounter Care Teams Dietary Services Director Relationship Specialty Start Date End Date Rosalino Jung MD PCP - General Internal Medicine 11/11/17 07/21/20 Mika Le DO PCP - General Internal Medicine 07/22/20 [facility] PCP - General Internal Medicine 12/01/20 03/22/22 Jose E Dye MD PCP - General Family Practice 03/23/22 Bharat Anand MD, PHD Surgeon Neurosurgery 04/13/22 Darinel Sun PA-C [address] [place] [address] Specialist Neurosurgery 04/13/22 documented as of this encounter
--- OUTSIDE RECORDS SUMMARY | 2024-06-21 09:01 | XMS_ITS | Encounter Summary ---
Author Organization [facility] Address [address] [place] [address] Care Team Providers Care Short Haul Driver Name Role Phone Rosalino Jung MD Primary Care Provider Unava Mika Lay DO Primary Care Provider Rabia jude Baig Pcp Primary Care Provider Jose E Vogt MD Primary Care Provider Unav Bharat Myers MD, PHD Unavailable Unava ilable Darinel Sun PA-C Unavailable [phone] Encounter Details Date Type Department Care Team Description 03/30/2018 Telephone Medicine/Pediatrics - [address] [phone] Rosalino Jung MD Social History Tobacco Use [...] Telephone Encounter - Rosalino Jung MD - 03/31/2018 4:10 PM EST Spoke with pain management center at [facility], Nan LOPES, she notes that plan is eval for spinal stimulator, no plan to prescribe narcotics as Alejandro has at [facility] in past called their office up to twice daily for weeks asking for narcotics. Will send Alejandro Fivetran message. * Telephone Encounter - Rosalino Jung MD - 03/30/2018 5:10 PM EST [facility] they stated physician would call me back. I plan on discussing Alejandro's narcotics with them. documented in this encounter Plan of Treatment Not on file documented as of this encounter Visit Diagnoses Not on filedocumented in this encounter Care Teams Short Haul Driver Relationship Specialty Start Date End Date Rosalino Jung MD PCP - General Internal Medicine 11/11/17 07/21/20 Mika Le DO PCP - General Internal Medicine 07/22/[address] [place] [address] PCP - General Internal Medicine 12/01/20 03/22/22 Jose E Dye MD PCP - General Family Practice 03/23/22 Bharat Anand MD, PHD Surgeon Neurosurgery 04/13/22 Darinel Sun PA-C [address] [place] [address] [place] [address] Specialist Neurosurgery 04/13/22 documented as of this encounter
--- OUTSIDE RECORDS SUMMARY | 2024-06-21 09:01 | XMS_ITS | Encounter Summary ---
Author Organization [facility] Address [address] [place] [address] Care Team Providers Care Harness Racing Handicapper Name Role Phone Rosalino Jung MD Primary Care Provider Unava Mika Lay DO Primary Care Provider Rabia jude Baig Pcp Primary Care Provider Jose E Vogt MD Primary Care Provider Unav Bharat Myers MD, PHD Unavailable Unava ilable Darinel Sun PA-C Unavailable [phone] Encounter Details Date Type Department Care Team Description 11/08/2018 Pt. Non Urgent Medic al Question Medicine/Pediatrics - [address] [address] Rosalino Jung MD Social History Tobacco Use [...] I had just to go to the [facility] today for my prescreening. If rescheduling [...] on filedocumented in this encounter Care Teams Harness Racing Handicapper Relationship Specialty Start Date End Date Rosalino Jung MD PCP - General Internal Medicine 11/11/17 07/21/20 Mika Le DO PCP - General Internal Medicine 07/22/20 [facility] PCP - General Internal Medicine 12/01/20 03/22/22 Jose E Dye MD PCP - General Family Practice 03/23/22 Bharat Anand MD, PHD Surgeon Neurosurgery 04/13/22 Darinel Sun PA-C [address] [place] [address] Specialist Neurosurgery 04/13/22 documented as of this encounter
--- OUTSIDE RECORDS SUMMARY | 2024-06-21 09:01 | XMS_ITS | Encounter Summary ---
Author Organization [facility] Address [address] [place] [address] Care Team Providers Care Paving Block Cutter Name Role Phone Valentin Gaviria MD Primary Care Provider Unavail able Viv Kauffman MD Primary Care Provider Unavaila Rosalino Kirby MD Primary Care Provider Unava ilable Mika Le DO Primary Care Provider Rabia vailable [facility], Pcp Primary Care Provider UnavailJose E Miller MD Primary Care Provider Unav Bharat Myers MD, PHD Unavailable Unava ilable Darinel Sun PA-C Unavailable Encounter Details Date Type Department Care Team Description 06/28/2013 Hospital Medical Records [address] [place] [address] Jonathon Patton MD Social History Tobacco Use [...] on filedocumented in this encounter Care Teams Paving Block Cutter Relationship Specialty Start Date End Date Valentin Gaviria MD PCP - General 06/28/00 01/16/15 Viv Kauffman MD PCP - General Internal Medicine 01/17/15 11/10/17 Rosalino Jung MD PCP - General Internal Medicine 11/11/17 07/21/20 Mika Le DO PCP - General Internal Medicine 07/22/[address] [place] [address] PCP - General Internal Medicine 12/01/20 03/22/22 Jose E Dye MD PCP - General Family Practice 03/23/22 Bharat Anand MD, PHD Surgeon Neurosurgery 04/13/22 Darinel Sun PA-C [address] [place] [address] Specialist Neurosurgery 04/13/22 documented as of this encounter
--- OUTSIDE RECORDS SUMMARY | 2024-06-21 09:01 | XMS_ITS | Encounter Summary ---
Author Organization [facility] Address [address] [place] [address] Care Team Providers Care Scrap Preparer Name Role Phone Rosalino Jung MD Primary Care Provider Unava Mika Lay DO Primary Care Provider Rabia jude Baig Pcp Primary Care Provider Jose E Vogt MD Primary Care Provider Unav Bharat Myers MD, PHD Unavailable Unava ilable Darinel Sun PA-C Unavailable [phone] Encounter Details Date Type Department Care Team Description 07/29/2019 Pt. Non Urgent Medic al Question Adult Medicine [address] [address] Rosalino Jung MD Social History Tobacco Use [...] Progress Notes * Chioma Nuñez L.P.N. - 07/30/2019 10:49 AM EDTFrom: Alejandro Caruso To: Rosalino Jung MD Sent: 07/29/2019 2:45 PM EDT Subject: [facility] [facility], Is the [facility] open for X1RAYS??? I wouldn't mind driving there if it gets me in Tuesday07-30-2019. documented in this encounter Plan of Treatment Not on file documented as of this encounter Visit Diagnoses Not on filedocumented in this encounter Care Teams Scrap Preparer Relationship Specialty Start Date End Date Rosalino Jung MD PCP - General Internal Medicine 11/11/17 07/21/20 Mika Le DO PCP - General Internal Medicine 07/22/20 [facility] PCP - General Internal Medicine 12/01/20 03/22/22 Jose E Dye MD PCP - General Family Practice 03/23/22 Bharat Anand MD, PHD Surgeon Neurosurgery 04/13/22 Darinel Sun PA-C [address] [place] [address] Specialist Neurosurgery 04/13/22 documented as of this encounter
--- OUTSIDE RECORDS SUMMARY | 2024-06-21 09:01 | XMS_ITS | Encounter Summary ---
Author Organization [facility] Address [address] [place] [address] Care Team Providers Care Hosiery Pairer Name Role Phone Mika Le DO Primary Care [facility] Primary Care Provider Jose E Vogt MD Primary Care Provider Unav Bharat Myers MD, PHD Unavailable Unava ilDarinel Davis PA-C Unavailable [phone] Reason for Visit * Reason Onset Date Comments Chronic Pain 08/13/2020 Encounter Details Date Type Department Care Team Description 08/13/2020 Telephone Adult [address] [address] Mika Le DO Chronic Pain Social History [...] on filedocumented in this encounter Care Teams Hosiery Pairer Relationship Specialty Start Date End Date Mika Le DO PCP - General Internal Medicine 07/22/20 [facility] PCP - General Internal Medicine 12/01/20 03/22/22 Jose E Dye MD PCP - General Family Practice 03/23/22 Bharat Anand MD, PHD Surgeon Neurosurgery 04/13/22 Darinel Sun PA-C [address] [place] [address] [place] [address] Specialist Neurosurgery 04/13/22 documented as of this encounter
--- OUTSIDE RECORDS SUMMARY | 2024-06-21 09:02 | XMS_ITS | Encounter Summary ---
Author [facility] Address [address] [place] [address] Care Team Providers Care Laborer Cheesemaking Name Role Phone Rosalino Jung MD Primary Care Provider Unava Mika Lay DO Primary Care Provider Rabia jude Baig Pcp Primary Care Provider Jose E Vogt MD Primary Care Provider Unav Bharat Myers MD, PHD Unavailable Unava ilable Darinel Sun PA-C Unavailable [phone] Encounter Details Date Type Department Care Team Description 08/02/2019 Pt. Non Urgent Medic al Question Adult Medicine [address] [address] Rosalino Jung MD Social History Tobacco Use [...] Progress Notes * Chioma Nuñez L.P.N. - 08/02/2019 1:53 PM EDTFrom: Alejandro Paul Couture To: Rosalino Jung MD Sent: 08/02/2019 1:42 PM EDT Subject: HIP X-RAY Dr. Jung, I wont be able to make it too [place] today, I will go first thing in the morning. Thanks Alejandro documented in this encounter Plan of Treatment Not on file documented as of this encounter Visit Diagnoses Not on filedocumented in this encounter Care Teams Laborer Cheesemaking Relationship Specialty Start Date End Date Rosalino Jung MD PCP - General Internal Medicine 11/11/17 07/21/20 Mika Le DO PCP - General Internal Medicine 07/22/[address] [place] [address] PCP - General Internal Medicine 12/01/20 03/22/22 Jose E Dye MD PCP - General Family Practice 03/23/22 Bharat Anand MD, PHD Surgeon Neurosurgery 04/13/22 Darinel Sun PA-C [address] [place] [address] Specialist Neurosurgery 04/13/22 documented as of this encounter
--- OUTSIDE RECORDS SUMMARY | 2024-06-21 09:02 | XMS_ITS | Encounter Summary ---
Author Organization [facility] Address [address] [place] [address] Care Team Providers Care Fashion Marketer Name Role Phone Valentin Gaviria MD Primary Care Provider Unavail able Viv Kauffman MD Primary Care Provider Unavaila Rosalino Kirby MD Primary Care Provider Unava ilable Mika Le DO Primary Care Provider Rabia vailable [facility], Pcp Primary Care Provider UnavailJose E Miller MD Primary Care Provider Unav Bharat Myers MD, PHD Unavailable Unava ilable Darinel uSn PA-C Unavailable [phone] Encounter Details Date Type Department Care Team Description 01/31/2014 SCAN Medical Records [address] [place] [address] Abstract, Provider Social History Tobacco Use Types [...] on filedocumented in this encounter Care Teams Fashion Marketer Relationship Specialty Start Date End Date Valentin Gaviria MD PCP - General 06/28/00 01/16/15 Viv Kauffman MD PCP - General Internal Medicine 01/17/15 11/10/17 Rosalino Jung MD PCP - General Internal Medicine 11/11/17 07/21/20 Mika Le DO PCP - General Internal Medicine 07/22/[address] [place] [address] PCP - General Internal Medicine 12/01/20 03/22/22 Jose E Dye MD PCP - General Family Practice 03/23/22 Bharat Anand MD, PHD Surgeon Neurosurgery 04/13/22 Darinel Sun PA-C [address] [place] [address] Specialist Neurosurgery 04/13/22 documented as of this encounter
--- OUTSIDE RECORDS SUMMARY | 2024-06-21 09:02 | XMS_ITS | Encounter Summary ---
Author Organization [facility] Address [address] [place] [address] Care Team Providers Care Mainframe Analyst Name Role Phone Rosalino Jung MD Primary Care Provider Unava Mika Lay DO Primary Care Provider Rabia jude Baig Pcp Primary Care Provider Jose E Vogt MD Primary Care Provider Unav Bharat Myers MD, PHD Unavailable Unava ilable Darinel Sun PA-C Unavailable [phone] Encounter Details Date Type Department Care Team Description 06/26/2018 Transfer Records Medical Records [address] [place] [address] Tera Gordon MD [address] [place] [address] Social History Tobacco Use Types Packs/Day Years [...] on filedocumented in this encounter Care Teams Mainframe Analyst Relationship Specialty Start Date End Date Rosalino Jung MD PCP - General Internal Medicine 11/11/17 07/21/20 Mika Le DO PCP - General Internal Medicine 07/22/20 [facility] PCP - General Internal Medicine 12/01/20 03/22/22 Jose E Dye MD PCP - General Family Practice 03/23/22 Bharat Anand MD, PHD Surgeon Neurosurgery 04/13/22 Darinel Sun PA-C [address] [place] [address] Specialist Neurosurgery 04/13/22 documented as of this encounter
--- OUTSIDE RECORDS SUMMARY | 2024-06-21 09:02 | XMS_ITS | Encounter Summary ---
Author Organization [facility] Address [address] [place] [address] Care Team Providers Care Health Teacher Name Role Phone Rosalino Jung MD Primary Care Provider Unava Mika Lay DO Primary Care Provider Rabia jude Baig Pcp Primary Care Provider Jose E Vogt MD Primary Care Provider Unav Bharat Myers MD, PHD Unavailable Unava ilable Darinel Sun PA-C Unavailable [phone] Encounter Details Date Type Department Care Team Description 10/10/2019 Pt. Non Urgent Medic al Question Adult Medicine [address] [address] Rosalino Jung MD Social History Tobacco Use [...] filedocumented in this encounter Care Teams Health Teacher Relationship Specialty Start Date End Date Rosalino Jung MD PCP - General Internal Medicine 11/11/17 07/21/20 Mika Le DO PCP - General Internal Medicine 07/22/20 [facility] PCP - General Internal Medicine 12/01/20 03/22/22 Jose E Dye MD PCP - General Family Practice 03/23/22 Bharat Anand MD, PHD Surgeon Neurosurgery 04/13/22 Darinel Sun PA-C [address] [place] [address] Specialist Neurosurgery 04/13/22 documented as of this encounter
--- OUTSIDE RECORDS SUMMARY | 2024-06-21 09:02 | XMS_ITS | Encounter Summary ---
Author Organization [facility] Address [address] [place] [address] Care Team Providers Care Teacher Cclc Name Role Phone Rosalino Jung MD Primary Care Provider Unava Mika Lay DO Primary Care Provider Rabia jude Baig Pcp Primary Care Provider Jose E Vogt MD Primary Care Provider Unav Bharat Myers MD, PHD Unavailable Unava ilable Darinel Sun PA-C Unavailable [phone] Encounter Details Date Type Department Care Team Description 10/30/2019 Pt. Non Urgent Medic al Question Adult Medicine [address] [address] Rosalino Jung MD Social History Tobacco Use [...] Progress Notes * Yuko Ling R.N. - 10/30/2019 12:20 PM EDTFrom: Alejandro Paul Couture To: Rosalino Jung MD Sent: 10/30/2019 12:12 PM EDT Subject: Dosepac Dr. Jung, Would you consider prescribing me another Steroid Dosepac? I have 8 days until my injection and I need some relief, my pain is Off The Chart. I just can't take it anymore. Thanks for all you do for me, Alejandro documented in this encounter Plan of Treatment Not on file documented as of this encounter Visit Diagnoses Not on filedocumented in this encounter Care Teams Teacher Cclc Relationship Specialty Start Date End Date Rosalino Jung MD PCP - General Internal Medicine 11/11/17 07/21/20 Mika Le DO PCP - General Internal Medicine 07/22/[address] [place] [address] PCP - General Internal Medicine 12/01/20 03/22/22 Jose E Dye MD PCP - General Family Practice 03/23/22 Bharat Anand MD, PHD Surgeon Neurosurgery 04/13/22 Darinel Sun PA-C [address] [place] [address] [place] [address] Specialist Neurosurgery 04/13/22 documented as of this encounter
--- OUTSIDE RECORDS SUMMARY | 2024-06-21 09:02 | XMS_ITS | Encounter Summary ---
[facility] Organization [facility] Address [address] [place] [address] Care Team Providers Care Revenue Enforcement Agent Name Role Phone Rosalino Jung MD Primary Care Provider Unava Mika Lay DO Primary Care Provider Rabia jude Baig Pcp Primary Care Provider Jose E Vogt MD Primary Care Provider Unav Bharat Myers MD, PHD Unavailable Unava ilable Darinel Sun PA-C Unavailable [phone] Encounter Details Date Type Department Care Team Description 10/11/2019 Pt. Non Urgent Medic al Question Adult Medicine [address] [address] Rosalino Jung MD Social History Tobacco Use [...] Progress Notes * Yuko Ling R.N. - 10/11/2019 4:30 PM EDTFrom: Alejandro Paul Couture To: Rosalino Jung MD Sent: 10/11/2019 3:31 PM EDT Subject: Back Pain Doctor Fabiana, I understand you have 48 hours before you need to get back too me, but I hurt really, really bad. So if you could provide me with something tonight hat would be great. Thanks Alejandro documented in this encounter Plan of Treatment Not on file documented as of this encounter Visit Diagnoses Not on filedocumented in this encounter Care Teams Revenue Enforcement Agent Relationship Specialty Start Date End Date Rosalino Jung MD PCP - General Internal Medicine 11/11/17 07/21/20 Mika Le DO PCP - General Internal Medicine 07/22/[address] [place] [address] PCP - General Internal Medicine 12/01/20 03/22/22 Jose E Dye MD PCP - General Family Practice 03/23/22 Bharat Anand MD, PHD Surgeon Neurosurgery 04/13/22 Darinel Sun PA-C [address] [place] [address] Specialist Neurosurgery 04/13/22 documented as of this encounter
--- OUTSIDE RECORDS SUMMARY | 2024-06-21 09:02 | XMS_ITS | Encounter Summary ---
Author Organization [facility] Address [address] [place] [address] Care Team Providers Care Graduate Assistant Name Role Phone Rosalino Jung MD Primary Care Provider Unava Mika Lay DO Primary Care Provider Rabia jude Baig Pcp Primary Care Provider Jose E Vogt MD Primary Care Provider Unav Bharat Myers MD, PHD Unavailable Unava ilable Darinel Sun PA-C Unavailable [phone] Encounter Details Date Type Department Care Team Description 04/20/2018 Pt. Non Urgent Medic al Question Medicine/Pediatrics - [address] [address] Rosalino Jung MD Social History Tobacco Use [...] Progress Notes * Janett Dailey RN - 04/20/2018 9:04 AM ESTFrom: Alejandro Caruso To: Rosalino Jung MD Sent: 04/20/2018 1:16 AM EST Subject: Pain Management DR. Jung, Did Nan from Pain Management send you an e-mail this week? If so what are your thoughts? documented in this encounter Plan of Treatment Not on file documented as of this encounter Visit Diagnoses Not on filedocumented in this encounter Care Teams Graduate Assistant Relationship Specialty Start Date End Date Rosalino Jung MD PCP - General Internal Medicine 11/11/17 07/21/20 Mika Le DO PCP - General Internal Medicine 07/22/[address] [place] [address] PCP - General Internal Medicine 12/01/20 03/22/22 Jose E Dye MD PCP - General Family Practice 03/23/22 Bharat Anand MD, PHD Surgeon Neurosurgery 04/13/22 Darinel Sun PA-C [address] [place] [address] Specialist Neurosurgery 04/13/22 documented as of this encounter
--- OUTSIDE RECORDS SUMMARY | 2024-06-21 09:02 | XMS_ITS | Encounter Summary ---
[facility] Organization [facility] Address [address] [place] [address] Care Team Providers Care Cell Tender Name Role Phone Rosalino Jung MD Primary Care Provider Unava Mika Lay DO Primary Care Provider Rabia jude Baig Pcp Primary Care Provider Jose E Vogt MD Primary Care Provider Unav Bharat Myers MD, PHD Unavailable Unava ilable Darinel Sun PA-C Unavailable [phone] Encounter Details Date Type Department Care Team Description 10/18/2019 Pt. Non Urgent Medic al Question Adult Medicine [address] [address] Rosalino Jung MD Social History Tobacco Use [...] Progress Notes * Yuko Ling R.N. - 10/18/2019 10:15 AM EDTFrom: Alejandro Paul Couture To: Rosalino Jung MD Sent: 10/18/2019 9:43 AM EDT Subject: Prednisone Dr. Jung, Thank you for the prescription, but if I knew I was only getting 6 pills I probably would have justsaid forget it. Can I just take 1 a day for 6 days and end it? Its just unfortunate that the 3 things that work for my back pain I can't get. Oxycodone, Prednisone, you won't prescribe and Mamajuana t hat I can't afford. I'm certainly not blaming you it just sucks. Thanks for all you do for me, Alejandro documented in this encounter Plan of Treatment Not on file documented as of this encounter Visit Diagnoses Not on filedocumented in this encounter Care Teams Cell Tender Relationship Specialty Start Date End Date Rosalino Jung MD PCP - General Internal Medicine 11/11/17 07/21/20 Mika Le DO PCP - General Internal Medicine 07/22/20 [facility] PCP - General Internal Medicine 12/01/20 03/22/22 Jose E Dye MD PCP - General Family Practice 03/23/22 Bharat Anand MD, PHD Surgeon Neurosurgery 04/13/22 Darinel Sun PA-C [address] [place] [address] Specialist Neurosurgery 04/13/22 documented as of this encounter
--- OUTSIDE RECORDS SUMMARY | 2024-06-21 09:02 | XMS_ITS | Encounter Summary ---
[facility] Organization [facility] Address [address] [place] [address] Care Team Providers Care Business Applications Analyst Name Role Phone Rosalino Jung MD Primary Care Provider Unava Mika Lay DO Primary Care Provider Rabia jude [facility] Primary Care Provider Jose E Vogt MD Primary Care Provider Unav Bharat Myers MD, PHD Unavailable Unava ilable Darinel Sun PA-C Unavailable [phone] Encounter Details Date Type Department Care Team Description 02/16/2018 Agricultural Service Worker Report Medical Records [address] [place] [id number] Nan Shaikh NP Social History Tobacco Use [...] on filedocumented in this encounter Care Teams Business Applications Analyst Relationship Specialty Start Date End Date Rosalino Jung MD PCP - General Internal Medicine 11/11/17 07/21/20 Mika Le DO PCP - General Internal Medicine 07/22/20 [facility] PCP - General Internal Medicine 12/01/20 03/22/22 Jose E Dye MD PCP - General Family Practice 03/23/22 Bharat Anand MD, PHD Surgeon Neurosurgery 04/13/22 Darinel Sun PA-C [address] [place] [address] Specialist Neurosurgery 04/13/22 documented as of this encounter
--- OUTSIDE RECORDS SUMMARY | 2024-06-21 09:02 | XMS_ITS | Encounter Summary ---
[facility] Organization [facility] Address [address] [place] [address] Care Team Providers Care Systems Programmer Analyst Name Role Phone Valentin Gaviria MD Primary Care Provider Unavail able Viv Kauffman MD Primary Care Provider Unavaila Rosalino Kirby MD Primary Care Provider Unava ilable Mika Le DO Primary Care Provider Rabia vailable [facility], Pcp Primary Care Provider UnavailJose E Miller MD Primary Care Provider Unav Bharat Myers MD, PHD Unavailable Unava ilable Darinel Sun PA-C Unavailable [phone] Encounter Details Date Type Department Care Team Description 01/21/2014 Wood Web Weaving Machine Operator Report Medical Records [address] [place] [address] Mika Booth MD Social History Tobacco Use Types Packs/Day [...] on filedocumented in this encounter Care Teams Systems Programmer Analyst Relationship Specialty Start Date End Date [...] Surgeon Neurosurgery 04/13/22 Darinel Sun PA-C [address] [place] [address] Specialist Neurosurgery 04/13/22 documented as of this encounter
--- OUTSIDE RECORDS SUMMARY | 2024-06-21 09:02 | XMS_ITS | Encounter Summary ---
Author Organization [facility] Address [address] [place] [address] Care Team Providers Care Farmworker Grain Name Role Phone Rosalino Jung MD Primary Care Provider Unava Mika Lay DO Primary Care Provider Rabia jude [facility] Primary Care Provider Jose E Vogt MD Primary Care Provider UnaBharat Gomes MD, PHD Unavailable Unava Darinel Thomas PA-C Unavailable [phone] Encounter Details Date Type Department Care Team Description 08/28/2019 Roof Shingler Report Medical Records [address] [place] [address] Mika Duque Social History Tobacco Use Types [...] on filedocumented in this encounter Care Teams Farmworker Grain Relationship Specialty Start Date End Date Rosalino Jung MD PCP - General Internal Medicine 11/11/17 07/21/20 Mika Le DO PCP - General Internal Medicine 07/22/20 [facility] PCP - General Internal Medicine 12/01/20 03/22/22 Jose E Dye MD PCP - General Family Practice 03/23/22 Bharat Anand MD, PHD Surgeon Neurosurgery 04/13/22 Darinel Sun PA-C [address] [place] [address] Specialist Neurosurgery 04/13/22 documented as of this encounter
--- OUTSIDE RECORDS SUMMARY | 2024-06-21 09:02 | XMS_ITS | Encounter Summary ---
Author Organization [facility] Address [address] [place] [address] Care Team Providers Care Seed Analyst Name Role Phone Mika Le DO Primary [facility] Primary Care Provider UnavailJose E Miller MD Primary Care Provider Unav ailBharat Seals MD, PHD Unavailable Unava ilDarinel Davis PA-C Unavailable [phone] Encounter Details Date Type Department Care Team Description 10/08/2020 Pt. Non Urgent Medic al Question Adult Medicine [address] [address] Mika Le DO Social History Tobacco Use [...] encounter Miscellaneous Notes * Telephone Encounter - Mika Le DO - 10/16/2020 7:33 PM EDT This request has been addressed. Thank you. * Telephone Encounter - Claudia Rveeles M.A. - 10/08/2020 10:16 AM EDTFrom: Alejandro Caruso To: Geovanna Le Sent: 10/08/2020 10:14 AM EDT Subject: Shaky Leg Syndrome DR. 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 But like I told you a couple week ago in an E-Mail, my Mother has it and they have her on Pramipexole .025 mg 3 daily. Can you please write me a prescription for this? My next appointment with you isn't until 01-02-2021. Thanks in advance, Alejandro Caruso documented in this encounter Plan of Treatment Not on file documented as of this encounter Visit Diagnoses Not on filedocumented in this encounter Care Teams Seed Analyst Relationship Specialty Start Date End Date Mika Le DO PCP - General Internal Medicine 07/22/[address] [place] [address] PCP - General Internal Medicine 12/01/20 03/22/22 Jose E Dye MD PCP - General Family Practice 03/23/22 Bharat Anand MD, PHD Surgeon Neurosurgery 04/13/22 Darinel Sun PA-C [address] [place] [address] [place] [address] Specialist Neurosurgery 04/13/22 documented as of this encounter
--- OUTSIDE RECORDS SUMMARY | 2024-06-21 09:02 | XMS_ITS | Encounter Summary ---
Author Organization [facility] Address [address] [place] [address] Care Team Providers Care Director Of Promotions Name Role Phone Rosalino Jung MD Primary Care Provider Unava Mika Lay DO Primary Care Provider Rabia jude Baig Pcp Primary Care Provider Jose E Vogt MD Primary Care Provider Unav Bharat Myers MD, PHD Unavailable Unava ilable Darinel Sun PA-C Unavailable [phone] Encounter Details Date Type Department Care Team Description 02/03/2018 Telephone Medicine/Pediatrics - [address] [id number] Rosalino Jung MD Social History Tobacco Use [...] in this encounter Care Teams Director Of Promotions Relationship Specialty Start Date End Date Rosalino Jung MD PCP - General Internal Medicine 11/11/17 07/21/20 Mika Le DO PCP - General Internal Medicine 07/22/[address] [place] [address] PCP - General Internal Medicine 12/01/20 03/22/22 Jose E Dye MD PCP - General Family Practice 03/23/22 Bharat Anand MD, PHD Surgeon Neurosurgery 04/13/22 Darinel Sun PA-C [address] [place] [address] [place] [address] Specialist Neurosurgery 04/13/22 documented as of this encounter
--- OUTSIDE RECORDS SUMMARY | 2024-06-21 09:02 | XMS_ITS | Encounter Summary ---
Author Organization [facility] Address [address] [place] [address] Care Team Providers Care Director Business Travel Name Role Phone Rosalino Jung MD Primary Care Provider Unava Mika Lay DO Primary Care Provider Rabia jude Baig Pcp Primary Care Provider Jose E Vogt MD Primary Care Provider Unav Bharat Myers MD, PHD Unavailable Unava ilable Darinel Sun PA-C Unavailable [phone] Encounter Details Date Type Department Care Team Description 07/31/2019 Pt. Non Urgent Medic al Question Adult Medicine [address] [address] Rosalino Jung MD Social History Tobacco Use [...] Notes * Chioma Nuñez L.P.N. - 07/31/2019 1:29 PM EDTFrom: Alejandro Caruso To: Rosalino Jung MD Sent: 07/31/2019 1:27 PM EDT Subject: Hip X-RAY I told the nurse yesterday and she said she didnt have anything for my hip. documented in this encounter Plan of Treatment Not on file documented as of this encounter Visit Diagnoses Not on filedocumented in this encounter Care Teams Director Business Travel Relationship Specialty Start Date End Date Rosalino Jung MD PCP - General Internal Medicine 11/11/17 07/21/20 Mika Le DO PCP - General Internal Medicine 07/22/[address] [place] [address] PCP - General Internal Medicine 12/01/20 03/22/22 Jose E Dye MD PCP - General Family Practice 03/23/22 Bharat Anand MD, PHD Surgeon Neurosurgery 04/13/22 Darinel uSn PA-C [address] [place] [address] [place] [address] Specialist Neurosurgery 04/13/22 documented as of this encounter
--- OUTSIDE RECORDS SUMMARY | 2024-06-21 09:02 | XMS_ITS | Encounter Summary ---
Author Organization [facility] Address [address] [place] [address] Care Team Providers Care Energy Consultant Name Role Phone Rosalino Jung MD Primary Care Provider Unava Mika Lay DO Primary Care Provider Rabia jude Baig [facility] Primary Care Provider Jose E Vogt MD Primary Care Provider Unav Bharat Myers MD, PHD Unavailable Unava Darinel Thomas PA-C Unavailable [phone] Encounter Details Date Type Department Care Team Description 05/18/2018 Professor Of Biological Sciences Report Medical Records [address] [place] [id number] Barry Zhang Social History Tobacco Use Types [...] on filedocumented in this encounter Care Teams Energy Consultant Relationship Specialty Start Date End Date Rosalino Jung MD PCP - General Internal Medicine 11/11/17 07/21/20 Mika Le DO PCP - General Internal Medicine 07/22/20 [facility] PCP - General Internal Medicine 12/01/20 03/22/22 Jose E Dye MD PCP - General Family Practice 03/23/22 Bharat Anand MD, PHD Surgeon Neurosurgery 04/13/22 Darinel Sun PA-C [address] [place] [address] Specialist Neurosurgery 04/13/22 documented as of this encounter
--- OUTSIDE RECORDS SUMMARY | 2024-06-21 09:02 | XMS_ITS | Encounter Summary ---
[facility] Organization [facility] Address [address] [place] [address] Care Team Providers Care Boiler Control Technician Name Role Phone Rosalino Jung MD Primary Care Provider Unava Mika Lay DO Primary Care Provider Rabia jude Baig Pcp Primary Care Provider Jose E Vogt MD Primary Care Provider Unav Bharat Myers MD, PHD Unavailable Unava ilable Darinel Sun PA-C Unavailable [phone] Encounter Details Date Type Department Care Team Description 06/24/2020 [facility] Adult [address] [address] Rosalino Jung MD Social History Tobacco Use [...] on filedocumented in this encounter Care Teams Boiler Control Technician Relationship Specialty Start Date End Date Rosalino Jung MD PCP - General Internal Medicine 11/11/17 07/21/20 Mika Le DO PCP - General Internal Medicine 07/22/20 [facility] PCP - General Internal Medicine 12/01/20 03/22/22 Jose E Dye MD PCP - General Family Practice 03/23/22 Bharat Anand MD, PHD Surgeon Neurosurgery 04/13/22 Darinel Sun PA-C [address] [place] [address] Specialist Neurosurgery 04/13/22 documented as of this encounter
--- OUTSIDE RECORDS SUMMARY | 2024-06-21 09:02 | XMS_ITS | Encounter Summary ---
Author Organization [facility] Address [address] [place] [address] Care Team Providers Care Coal Washer Tender Name Role Phone Valentin Gaviria MD Primary Care Provider Unavail able Viv Kauffman MD Primary Care Provider Unavaila Rosalion Kirby MD Primary Care Provider Unava ilable Mika Le DO Primary Care Provider Rabia vailable [facility], Pcp Primary Care Provider UnavailJose E Miller MD Primary Care Provider Unav Bharat Myers MD, PHD Unavailable Unava ilable Darinel Sun PA-C Unavailable [phone] Encounter Details Date Type Department Care Team Description 12/12/2013 Controlled Substance Plan Medical Records [address] [place] [address] Abstract, Provider Social History Tobacco Use Types [...] on filedocumented in this encounter Care Teams Coal Washer Tender Relationship Specialty Start Date End Date Valentin [...] Surgeon Neurosurgery 04/13/22 Darinel Sun PA-C [address] [place] [address] Specialist Neurosurgery 04/13/22 documented as of this encounter
--- OUTSIDE RECORDS SUMMARY | 2024-06-21 09:02 | XMS_ITS | Encounter Summary ---
Author Organization [facility] Address [address] [place] [address] Care Team Providers Care Impact Retail Service Merchandiser Name Role Phone Rosalino Jung MD Primary Care Provider Unava Mika Lay DO Primary Care Provider Rabia jude Baig [facility] Primary Care Provider Jose E Vogt MD Primary Care Provider Bharat Last MD, PHD Unavailable Unava Darinel Thomas PA-C Unavailable [phone] Encounter Details Date Type Department Care Team Description 02/08/2018 [facility] Controlled Substance Contract Medical Records [address] [place] [address] Abstract, Provider Social History Tobacco Use Types [...] on filedocumented in this encounter Care Teams Impact Retail Service Merchandiser Relationship Specialty Start Date End Date Rosalino Jung MD PCP - General Internal Medicine 11/11/17 07/21/20 Mika Le DO PCP - General Internal Medicine 07/22/20 [facility] PCP - General Internal Medicine 12/01/20 03/22/22 Jose E Dye MD PCP - General Family Practice 03/23/22 Bharat Anand MD, PHD Surgeon Neurosurgery 04/13/22 Darinel Sun PA-C [address] [place] [address] Specialist Neurosurgery 04/13/22 documented as of this encounter
--- OUTSIDE RECORDS SUMMARY | 2024-06-21 09:02 | XMS_ITS | Encounter Summary ---
Author Organization [facility] Address [address] [place] [address] Care Team Providers Care Lead Housekeeper Name Role Phone Rosalino Jung MD Primary Care Provider Unava Mika Lay DO Primary Care Provider Rabia jude Baig Pcp Primary Care Provider Jose E Vogt MD Primary Care Provider Unav Bharat Myers MD, PHD Unavailable Unava ilable Darinel Sun PA-C Unavailable [phone] Encounter Details Date Type Department Care Team Description 07/31/2019 Pt. Non Urgent Medic al Question Adult Medicine [address] [address] Rosalino Jung MD Social History Tobacco Use [...] 07/31/2019 1:25 PM EDT Subject: X-RAYS IN FOUKE Dr. Jung, I wrote to you yesterday asking if I could go to [place] and the answer was yes. documented in this encounter Plan of Treatment Not on file documented as of this encounter Visit Diagnoses Not on filedocumented in this encounter Care Teams Lead Housekeeper Relationship Specialty Start Date End Date Rosalino Jung MD PCP - General Internal Medicine 11/11/17 07/21/20 Mika Le DO PCP - General Internal Medicine 07/22/20 [facility] PCP - General Internal Medicine 12/01/20 03/22/22 Jose E Dye MD PCP - General Family Practice 03/23/22 Bharat Anand MD, PHD Surgeon Neurosurgery 04/13/22 Darinel Sun PA-C [address] [place] [address] Specialist Neurosurgery 04/13/22 documented as of this encounter
--- OUTSIDE RECORDS SUMMARY | 2024-06-21 09:02 | XMS_ITS | Encounter Summary ---
Author Organization [facility] Address [address] [place] [address] Care Team Providers Care Copy Center Operator Name Role Phone Rosalino Jung MD Primary Care Provider Unava Mika Lay DO Primary Care Provider Rabia jude Baig Pcp Primary Care Provider Jose E Vogt MD Primary Care Provider Unav Bharat Myers MD, PHD Unavailable Unava ilable Darinel Sun PA-C Unavailable [phone] Encounter Details Date Type Department Care Team Description 06/21/2018 Pt. Non Urgent Medic al Question Medicine/Pediatrics - [address] [address] Rosalino Jung MD Social History Tobacco Use [...] a refill they won't fill it until [id number] day and you only give me a [...] on filedocumented in this encounter Care Teams Copy Center Operator Relationship Specialty Start Date End Date Rosalino Jung MD PCP - General Internal Medicine 11/11/17 07/21/20 Mika Le DO PCP - General Internal Medicine 07/22/[address] [place] [address] PCP - General Internal Medicine 12/01/20 03/22/22 Jose E Dye MD PCP - General Family Practice 03/23/22 Bharat Anand MD, PHD Surgeon Neurosurgery 04/13/22 Darinel Sun PA-C [address] [place] [address] [place] [address] Specialist Neurosurgery 04/13/22 documented as of this encounter
--- OUTSIDE RECORDS SUMMARY | 2024-06-21 09:02 | XMS_ITS | Encounter Summary ---
Author Organization [facility] Address [address] [place] [address] Care Team Providers Care Vegetable Harvest Machine Operator Name Role Phone Rosalino Jung MD Primary Care Provider Unava Mika Lay DO Primary Care Provider Rabia jude Baig [facility] Primary Care Provider Jose E Vogt MD Primary Care Provider Unav Bharat Myers MD, PHD Unavailable Unava ilable Darinel Sun PA-C Unavailable [phone] Encounter Details Date Type Department Care Team Description 05/18/2019 Orders Only Medical Records [address] [place] [id number] Lois Stephens MD [address] [place] [id number] Social History Tobacco Use Types Packs/Day Years [...] Certified Gastroenterology and Internal Medicine Transplant Hepatology [facility] documented in this encounter Plan of Treatment Not on file documented as of this encounter Procedures Procedure Name Priority Date/Time Associated Diagnosis Comments OUTSIDE PATHOLOGY Routine 05/16/2019 documented in this encounter Results * OUTSIDE PATHOLOGY (05/16/2019) Lois Stephens MD OUTSIDE LAB documented in this encounter Visit Diagnoses Not on filedocumented in this encounter Care Teams Vegetable Harvest Machine Operator Relationship Specialty Start Date End Date Rosalino Jung MD PCP - General Internal Medicine 11/11/17 07/21/20 Mika Le DO PCP - General Internal Medicine 07/22/[address] [place] [address] PCP - General Internal Medicine 12/01/20 03/22/22 Jose E Dye MD PCP - General Family Practice 03/23/22 Bharat Anand MD, PHD Surgeon Neurosurgery 04/13/22 Darinel Sun PA-C [address] [place] [address] [place] [address] Specialist Neurosurgery 04/13/22 documented as of this encounter
--- OUTSIDE RECORDS SUMMARY | 2024-06-21 09:02 | XMS_ITS | Encounter Summary ---
Author Organization [facility] Address [address] [place] [address] Care Team Providers Care Stablehand Name Role Phone Rosalino Jung MD Primary Care Provider Unava Mika Lay DO Primary Care Provider Rabia jude [facility] Primary Care Provider Jose E Vogt MD Primary Care Provider Unav Bharat Myers MD, PHD Unavailable Unava ilable Darinel Sun PA-C Unavailable [phone] Encounter Details Date Type Department Care Team Description 11/06/2019 Java Jsf Developer Report Medical Records [address] [place] [id number] Lovely Ngo Social History Tobacco Use Types [...] on filedocumented in this encounter Care Teams Stablehand Relationship Specialty Start Date End Date Rosalino Jung MD PCP - General Internal Medicine 11/11/17 07/21/20 Mika Le DO PCP - General Internal Medicine 07/22/20 [facility] PCP - General Internal Medicine 12/01/20 03/22/22 Jose E Dye MD PCP - General Family Practice 03/23/22 Bharat Anand MD, PHD Surgeon Neurosurgery 04/13/22 Darinel Sun PA-C [address] [place] [address] Specialist Neurosurgery 04/13/22 documented as of this encounter
--- OUTSIDE RECORDS SUMMARY | 2024-06-21 09:02 | XMS_ITS | Encounter Summary ---
[facility] Organization [facility] Address [address] [place] [address] Care Team Providers Care Security Installation Sales Technician Name Role Phone Mika Le Primary [facility] Primary Care Provider UnavailJose E Miller MD Primary Care Provider Unav ailBharat Selas MD, PHD Unavailable Unava ilDarinel Davis PA-C Unavailable [phone] Reason for Visit * Reason Onset Date Comments Mychart Rx Refill 09/25/2020 Encounter Details Date Type Department Care Team Description 09/25/2020 Refill Medicine/Pediatrics [address] [id number] Sherley Hawkins PA-C [address] [place] [address] Mychart Rx Refill Social History Tobacco Use Types Packs/Day Years [...] Telephone Encounter - Claudia Reveles M.A. - 09/27/2020 9:26 AM EDT Lab Results Component Value Date CHOL 156 03/23/2019 LDL 82 03/23/2019 HDL 35 03/23/2019 TRIG 195 03/23/2019 SGOT 10 03/23/2019 SGPT 16 03/23/2019 Pending appt with pcp 10/07/20 documented in this encounter Plan of Treatment Not on file documented as of this encounter Visit Diagnoses Diagnosis Dyslipidemia Other and unspecified hyperlipidemia documented in this encounter Care Teams Security Installation Sales Technician Relationship Specialty Start Date End Date Mika Le DO PCP - General Internal Medicine 07/22/20 [facility] PCP - General Internal Medicine 12/01/20 03/22/22 Jose E Dye MD PCP - General Family Practice 03/23/22 Bharat Anand MD, PHD Surgeon Neurosurgery 04/13/22 Darinel Sun PA-C [address] [place] [address] [place] [address] Specialist Neurosurgery 04/13/22 documented as of this encounter
--- OUTSIDE RECORDS SUMMARY | 2024-06-21 09:02 | XMS_ITS | Encounter Summary ---
[facility] Organization [facility] Address [address] [place] [address] Care Team Providers Care Inspector Set Up And Lay Out Name Role Phone Rosalino Jung MD Primary Care Provider Unava Mika Lay DO Primary Care Provider Rabia jude [facility] Primary Care Provider Jose E Vogt MD Primary Care Provider Unav Bharat Myers MD, PHD Unavailable Unava ilable Darinel Sun PA-C Unavailable [phone] Encounter Details Date Type Department Care Team Description 10/01/2019 Sales Ambassador Report Medical Records [address] [place] [id number] Lovely Ngo Social History Tobacco Use Types [...] on filedocumented in this encounter Care Teams Inspector Set Up And Lay Out Relationship Specialty Start Date End Date Rosalino Jung MD PCP - General Internal Medicine 11/11/17 07/21/20 Mika Le DO PCP - General Internal Medicine 07/22/20 [facility] PCP - General Internal Medicine 12/01/20 03/22/22 Jose E Dye MD PCP - General Family Practice 03/23/22 Bharat Anand MD, PHD Surgeon Neurosurgery 04/13/22 Darinel Sun PA-C [address] [place] [address] Specialist Neurosurgery 04/13/22 documented as of this encounter
--- OUTSIDE RECORDS SUMMARY | 2024-06-21 09:02 | XMS_ITS | Encounter Summary ---
Author Organization [facility] Address [address] [place] [address] Care Team Providers Care Hemmer Automatic Name Role Phone Viv Kauffman MD Primary Care Provider UnavailRosalino Nava MD Primary Care Provider Unava ilMika Maya DO Primary Care Provider [facility], Pcp Primary Care Provider UnavailJose E Miller MD Primary Care Provider Unav Bharat Myers MD, PHD Unavailable Unava ilDarinel Davis PA-C Unavailable [phone] Encounter Details Date Type Department Care Team Description 11/11/2015 Velvet Steamer Report Medical Records [address] [place] [address] Giselle Vaughan MD [address] [place] [address] [address] [place] [address] Social History Tobacco Use Types Packs/Day Years [...] on filedocumented in this encounter Care Teams Hemmer Automatic Relationship Specialty Start Date End Date Viv [...] Surgeon Neurosurgery 04/13/22 Darinel Sun PA-C [address] [place] [address] Specialist Neurosurgery 04/13/22 documented as of this encounter
[2024-06-21 09:03] VITALS: BMI 25.5
--- NOTE | 2024-06-21 09:03 | MHC.OFFVIS ---
Vital Signs 06/21/24 09:03 Height 5 ft 10 in Weight 178 lb BMI 25.5 Intake Visit Reasons: follow up s/p US 05/29/24 Intake Note: Follow up US 05/29/24 for bilateral LE pain, Left is worse than the Right LE. Pt states Left foot numbness w/ pins and needles. Pt states when sitting for more than 3 mins when he gets up he can't feel his Left LE. Cell Attendant Required: No Accompanied by: Self / Same As Patient Allergies Seasonal Allergies Allergy (Severe, Verified 06/21/24 09:05) Sneezing HPI HPI follow up s/p US 05/29/24: Details: The patient is a 54-year-old male presenting with leg numbness and a frozen sensation in the left leg, predominantly the foot. The patient underwent an ultrasound to assess the condition, which revealed functional veins and minimal issues below the calf in a small caliber vein. He reports pervasive sensations of his left leg being frozen and numb with persistent tingling, especially in the foot. The patient's medical history is significant for chronic back pain and previous surgeries addressing vertebral fusion at S1 and L5 due to nerve compression. Initially, surgical intervention alleviated the symptoms; however, the pain reappeared as the patient resumed activity. Current interventions have been inadequate, as he continues to experience severe pain despite receiving a buprenorphine patch and meloxicam. Attempts to manage the pain have been extensive yet unsuccessful, and the patient rarely sleeps in a bed due to discomfort. He now presents for follow-up with venous insufficiency testing [facility] Medical History Chronic pain syndrome Disc degeneration, lumbar Mild anemia Osteoarthritis GERD (gastroesophageal reflux disease) Depression with anxiety Claustrophobia HTN (hypertension) Arthritis Surgical History History of esophagogastroduodenoscopy (EGD) Hx of colonoscopy History of hip replacement H/O knee surgery History of spinal fusion Family History Father No problems noted. Mother No problems noted. Social History Household Members: Family Housing: House Are you a primary direct support professional caregiver to a significant other at home: No Do you presently have visiting nurse or other home services: No Alcohol intake: never Patient Tobacco Use Status: Former Tobacco user Tobacco use type: Cigarette Cigarette Packs Per Day: 1 Cigarettes Per Day: 5 Years Smoked: 30 e-Cigarette/Vaping Use: Never Used Second Hand Smoke Exposure: No Substance Use Type: Marijuana service: No Current occupational status: disabled Current occupation: rt hand Current occupational exposures/hazards: No Cognitive needs: No Hearing needs: No Vision needs: No Review of Systems Const All systems reviewed & are unremarkable except as noted in HPI and below Reports no additional complaints ENT Reports Normal hearing present Card Denies chest pain, Denies chest pain at rest, Denies chest pain with activity and Denies pedal edema Resp Denies cough GI Denies abdominal pain Musc Denies abnormal gait, Denies muscle cramps and Denies radiating pain into limb Skin/Breast Denies skin ulcer and Denies wounds Neuro Reports Normal hearing present and Denies abnormal gait Psych Reports no additional complaints Physical Exam Vital Signs: BMI result Body Mass Index 25.5 Const General: cooperative, healthy appearing and comfortable Orientation/consciousness: oriented to person, oriented to place and oriented to time HEENT Head: Yes normal to inspection Neck Neck: Yes normal visual inspection Carotids: no bruits Chest Chest palpation & inspection: normal inspection of the chest Resp Effort & Inspection: normal respiratory effort and able to speak in complete sentences Auscultation: clear to auscultation bilaterally, no crackles, no rales, no rhonchi and no wheezes Cardio Rate: regular rate Rhythm: regular rhythm Heart sounds: S1 normal heart sound present and S2 normal heart sound present Bruits: no carotid bruits Peripheral pulses: Peripheral pulses 2+ throughout GI Inspection: Yes normal to inspection Skin Wounds: no wounds Hair: normal Neuro General: oriented to person, oriented to place and oriented to time Cranial nerves: Yes CN's II-XII intact bilaterally and Yes Normal hearing present Cognition (Neuro): normal cognition Motor exam (neuro): 5/5 motor strength present throughout Extrem Other: venous exam: No significant superficial varicosities or spider telangiectasias, minimal edema General: No clubbing, No cyanosis and No edema Psych Appearance: grossly normal Mental Status: mental status grossly normal Speech and movement: Normal speech and movement present Results Reviewed Results Reviewed: Brief summary of venous insufficiency testing is as follows: right great saphenous vein: negative right small saphenous vein: negative right accessory vein: none present left great saphenous vein: Focally positive in left calf but vein is extremely small in caliber left small saphenous vein: negative left accessory vein: none present Please note there is no evidence of any venous aneurysms or significant tortuosity Assessment & Plan Assessment & Plan (1) Lower extremity pain: Code(s): M79.606 - Pain in leg, unspecified Category: Medical Qualifiers: Laterality: bilateral Qualified Code(s): M79.604 - Pain in right leg; M79.605 - Pain in left leg Plan: Following an extensive consultation, I informed the patient that his vascular ultrasound findings were effectively normal, indicating no significant issues such as venous insufficiency. In addition it appears that he does not have arterial disease as he has palpable bilateral dorsalis pedis pulses. 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 I recommended he have a further re-consultation with neurosurgery to ensure no further nerve impingement contributing to his leg symptoms. He will follow up with us on an as-needed basis. Thank you for allowing us to assist in his care. If there are any questions or concerns please do not hesitate to contact us. Plan Patient was informed and verbally consented to the use of an ambient scribe for clinic note documentation during this visit. Patient Instructions: - Arrange a follow-up with your neurosurgeon to evaluate potential nerve issues. - Continue discussing pain management strategies with Dr. Dye, and consideration of re-evaluation by pain management. - Please amend lifestyle activities to prevent aggravation; consider rest and gradual activity increase. Coding Level of Care Code Est Pt Level 4 (84720) Diagnoses Pain in both lower extremities M79.604; M79.605 Laterality: bilateral
== END 2024-06-21 09:25 | disposition home or self-care (01) ==
LOC: HO.HVS 08:50
PROVIDERS: PCP Family Medicine; Visit Provider Surgery Vascular Surgery
DX: M79.604 Pain in right leg (principal); M79.605 Pain in left leg
CPT/HCPCS: 99214

== ENCOUNTER → 2024-06-21 08:50 | Outpatient (BNVA) | payer MEDICARE, SELFPAY | PROVIDERS: PCP Family Medicine; Visit Provider Surgery Vascular Surgery | DX: M79.604 Pain in right leg (principal); M79.605 Pain in left leg | CPT/HCPCS: 99212 ==

== ENCOUNTER 2024-07-06 14:13 | Outpatient (AMB) | payer MEDICARE, SELFPAY ==
--- NOTE | 2024-07-06 14:25 | MHC.PC.OV ---
Vital Signs 07/06/24 14:27 07/06/24 14:31 Height 5 ft 10 in Weight 194 lb 6 oz BMI 27.9 BP 140/60 H 138/60 Blood Pressure Location Lt brachial Lt brachial Position Sitting Sitting Respiration 14 Pulse 61 Pulse Source Pulse Oximeter Temp 97.5 F Temp Source Oral Pulse Oximetry (%) 99 Oxygen Delivery Method Room Air Intake Visit Reasons: f/u colonoscopy Intake Note: patient is scheduled for a follow up from Gi/vascular appt Senior Estimator Required: No Allergies Seasonal Allergies Allergy (Severe, Verified 07/06/24 14:26) Sneezing Medication List - Last Reconciled 07/06/24 by Jose E Dye MD buprenorphine 20 mcg/hour 1 patch transdermal QWEEK 28 days clonazepam 1 mg PO Q8H 30 days losartan 50 mg PO QAM 90 days meloxicam 15 mg PO DAILY 30 days omeprazole 20 mg PO DAILY oxycodone 5 mg PO DAILY PRN 30 days pramipexole 0.25 mg PO BEDTIME 90 days Tobacco use date assessed: 07/26/23 Dental Screening Dental Screen Date: 04/26/23 HPI f/u colonoscopy HPI Details 54 y/o male presents to f/u chronic conditions. Colonoscopy had seen 2 polyps. He will follow up with them in 5 years. Lower extremity pain primarily due to lumbar radiculopathy. Had referred him to vascular surgery due to some leg edema and pain. Vascular ultrasound findings were effectively normal, indicating no significant issues sucha s venous insufficiency. [facility] Medical History Chronic pain syndrome Disc degeneration, lumbar Mild anemia Osteoarthritis GERD (gastroesophageal reflux disease) Depression with anxiety Claustrophobia HTN (hypertension) Arthritis Surgical History History of esophagogastroduodenoscopy (EGD) Hx of colonoscopy History of hip replacement H/O knee surgery History of spinal fusion Family History Father No problems noted. Mother No problems noted. Social History Household Members: Family Housing: House Are you a primary health care administrator to a significant other at home: No Do you presently have visiting nurse or other home services: No Alcohol intake: never Patient Tobacco Use Status: Former Tobacco user Tobacco use type: Cigarette Cigarette Packs Per Day: 1 Cigarettes Per Day: 5 Years Smoked: 30 e-Cigarette/Vaping Use: Never Used Second Hand Smoke Exposure: No Substance Use Type: Marijuana service: No Current occupational status: disabled Current occupation: rt hand Current occupational exposures/hazards: No Cognitive needs: No Hearing needs: No Vision needs: No Questionnaire Thrive Questionnaire Date Thrive assessed: 05/02/24 I am a: Parent/Caregiver What is your living situation today?: I have a place to live, but I am worried about losing it in the future Within the past 12 months, did the food you bought not last and you didn't have the money to get more?: Sometimes True Within the past 12 months, did you worry whether your food would run out before you got money to buy more?: Sometimes True Do you have trouble paying for medicines?: Yes Do you have trouble getting transportation to medical appointments?: No Do you have trouble paying your heating and electricity bill?: Yes Do you have trouble taking care of your child, family member or friend?: No Do you have trouble with day-to-day activities such as bathing, preparing meals, shopping, managing finances, etc.?: Yes Are you currently unemployed and looking for a job?: I choose not to answer this question Are you interested in more education?: No Currently or been in a relationship where the following occur: No concerns reported THRIVE Score: 4 GISSEL-7 AMB Questionnaire GISSEL-7 Date GISSEL - 7 assessed: 04/26/23 Source: Developed by Drs. Mika Nguyen, Valorie Chen, Ramírez House and colleagues, with an educational jonas from [employer]. Review of Systems Const Denies chills, Denies fatigue, Denies fever(s), Denies headache(s) and Denies weakness ENT Denies dizziness and Denies headache(s) Card Denies dyspnea Resp Denies cough, Denies dyspnea, Denies wheezing and Denies other (shortness of breath) Musc Denies numbness and Denies tingling Neuro Denies dizziness, Denies headache(s), Denies numbness, Denies tingling and Denies weakness Psych Denies anxiety and Denies depression Endo Denies fatigue Aller/Immun Denies wheezing Physical exam (Primary Care) Vital Signs: Last Vital Signs Temp 97.5 F 07/06/24 14:27 Pulse 61 07/06/24 14:27 Resp 14 07/06/24 14:27 BP 138/60 07/06/24 14:31 Pulse Ox 99 07/06/24 14:27 Oxygen Delivery Method Room Air 07/06/24 14:27 BMI result Body Mass Index 27.9 Tobacco/Smoking Status: Tobacco use Status Tobacco use date assessed 07/26/23 07/06/24 14:32 Patient Tobacco Use Status Former Tobacco user 07/06/24 14:32 Tobacco use type Cigarette 07/06/24 14:32 e-Cigarette/Vaping Use Never Used 07/06/24 14:32 Thrive Assessment: Date of Thrive Assessment Date Thrive assessed 05/02/24 07/06/24 14:32 Currently or been in a relationship where the following occur: No concerns reported Const General: well developed; No acute distress Nutritional Appearance: well nourished Orientation/consciousness: patient oriented x3 HENMT Head: Yes normocephalic and Yes atraumatic Eyes General: appearance normal, both eyes and all related structures Pupils: Equal, round and reactive pupils present EOM: EOMs intact bilaterally Resp Effort & Inspection: normal respiratory effort Neuro General: patient oriented x3 and gait normal Cranial nerves: Yes Equal, round and reactive pupils present Psych Affect: normal affect Coding Level of Care Code Est Pt Level 4 (61352) Diagnoses Radiculopathy, lumbar region M54.16 Screening for colon cancer Z12.11 Lower extremity edema R60.0 Assessment & Plan Assessment & Plan (1) Radiculopathy, lumbar region: Code(s): M54.16 - Radiculopathy, lumbar region Category: Medical Plan: Lower?extremity?pain primarily?due?to?lumbar?radiculopathy Had?referred?him?to?vascular?surgery?due?some?edema and?pain?but?after?thorough?workup,?vascular?ruled?out?significant?venous?insufficiency?or?peripheral?arterial?disease. MRI?showed?significant?foraminal?stenosis?primarily?on?the?left?at?L5-S1?consistent?with?his?left-sided?symptoms. Patient?[place]?. Unfortunately,?he?has?not improved?significantly?from?this?procedure. He?continues?buprenorphine?20?mcg?patch?and?meloxicam. He?has?been?consistent?and?appropriate?with?these Will?add?oxycodone?5?mg?daily?for?breakthrough?pain. Will?refer?for?2nd?opinion?per?patient?request. (2) Screening for colon cancer: Code(s): Z12.11 - Encounter for screening for malignant neoplasm of colon Category: Medical Plan: Followed?by[place] 2?polyps?seen?on?colonoscopy?and?recommended?follow-up?in?5?years (3) Lower extremity edema: Code(s): R60.0 - Localized edema Category: Medical Plan: No significant edema in lower extremities today. Had seen Dr Iglesias with complaints of LE edema and per Dr Iglesias's evaluation, no significant venous insufficiency. unclear what underlying cause was but appears resolved. Avoid salt/sodium. Orders: Referrals Neurosurgery Referral M54.16 - Radiculopathy, lumbar region Medications: New oxycodone MassPat Verified. Partial Fill upon patient request. 5 mg PO DAILY 30 days PRN 30 tabs 0RF pain Refilled meloxicam 15 mg PO DAILY 30 days 30 tabs 2RF
[2024-07-06 14:27] VITALS: BP 140/60; PULSE 61; RESP 14; TEMP 36.4; O2SAT 99; BMI 27.9
[2024-07-06 14:31] VITALS: BP 138/60
--- OUTSIDE RECORDS SUMMARY | 2024-07-06 14:34 | XMS_ITS | Encounter Summary ---
[facility] Organization [facility] Address [address] [place] [address] Care Team Providers Care Career Education Teacher Name Role Phone Rosalino Jung MD Primary Care Provider Unava Mika Lay DO Primary Care Provider Rabia jude Baig Pcp Primary Care Provider Jose E Vogt MD Primary Care Provider Unav Bharat Myers MD, PHD Unavailable Unava ilable Darinel Sun PA-C Unavailable [phone] Encounter Details Date Type Department Care Team Description 12/13/2017 Pt. Non Urgent Medic al Question Medicine/Pediatrics - [address] [phone] Rosalino Jung MD Social History Tobacco Use [...] Progress Notes * Chioma Nuñez L.P.N. - 12/13/2017 1:41 PM EDTFrom: Alejandro Caruso To: Rosalino Jung MD Sent: 12/13/2017 1:30 PM EDT Subject: Knee Surgery DR. Jung I spoke with the Orthopedic care center and they told me my surgeon has been out of the office last week and this week and are unsure if he will be back next week do too a serious familyissue and they might have to push my surgery out a few weeks. I would really appreciate it if you could try and contact DR. Leonard at [facility] because I really can't deal with the pain I'm in for much longer. I understand you only have my side of the story but I have never abused any opiate medication. Thank you for your time. Alejandro Caruso documented in this encounter Plan of Treatment Not on file documented as of this encounter Visit Diagnoses Not on filedocumented in this encounter Care Teams Career Education Teacher Relationship Specialty Start Date End Date Rosalino Jung MD PCP - General Internal Medicine 11/11/17 07/21/20 Mika Le DO PCP - General Internal Medicine 07/22/[address] [place] [address] PCP - General Internal Medicine 12/01/20 03/22/22 Jose E Dye MD PCP - General Family Practice 03/23/22 Bharat Anand MD, PHD Surgeon Neurosurgery 04/13/22 Darinel Sun PA-C [address] [facility] [address] [place] [address] Specialist Neurosurgery 04/13/22 documented as of this encounter
--- OUTSIDE RECORDS SUMMARY | 2024-07-06 14:34 | XMS_ITS | Encounter Summary ---
[facility] Organization [facility] Address [address] [place] [address] Care Team Providers Care Edge Cutting Machine Operator Name Role Phone Rosalino Jung MD Primary Care Provider Unava Mika Lay DO Primary Care Provider Rabia jude Baig [facility] Primary Care Provider Jose E Vogt MD Primary Care Provider UnaBharat Gomes MD, PHD Unavailable Unava Darinel Thomas PA-C Unavailable Encounter Details Date Type Department Care Team Description 01/18/2019 Old Medical Records Medical Records [address] [place] [address] Abstract, Provider Social History Tobacco Use Types [...] on filedocumented in this encounter Care Teams Edge Cutting Machine Operator Relationship Specialty Start Date End Date Rosalino Jung MD PCP - General Internal Medicine 11/11/17 07/21/20 Mika Le DO PCP - General Internal Medicine 07/22/20 [facility] PCP - General Internal Medicine 12/01/20 03/22/22 Jose E Dye MD PCP - General Family Practice 03/23/22 Bharat Anand MD, PHD Surgeon Neurosurgery 04/13/22 Darinel Sun PA-C [address] [place] [address] Specialist Neurosurgery 04/13/22 documented as of this encounter
--- OUTSIDE RECORDS SUMMARY | 2024-07-06 14:34 | XMS_ITS | Encounter Summary ---
Author Organization [facility] Address [address] [place] [address] Care Team Providers Care Management Specialist Name Role Phone Rosalino Jung MD Primary Care Provider Unava ilMika Maya DO Primary Care Provider Rabia jude Baig Pcp Primary Care Provider Jose E Vogt MD Primary Care Provider Unav Bharat Myers MD, PHD Unavailable Unava ilable Darinel Sun PA-C Unavailable Encounter Details Date Type Department Care Team Description 01/31/2020 Pt. Non Urgent Medic al Question Adult Medicine [address] [address] Rosalino Jung MD Social History Tobacco Use [...] on filedocumented in this encounter Care Teams Management Specialist Relationship Specialty Start Date End Date Rosalino Jung MD PCP - General Internal Medicine 11/11/17 07/21/20 Mika Le DO PCP - General Internal Medicine 07/22/[address] [place] [address] PCP - General Internal Medicine 12/01/20 03/22/22 Jose E Dye MD PCP - General Family Practice 03/23/22 Bharat Anand MD, PHD Surgeon Neurosurgery 04/13/22 Darinel Sun PA-C [address] [place] [address] [place] [address] Specialist Neurosurgery 04/13/22 documented as of this encounter
--- OUTSIDE RECORDS SUMMARY | 2024-07-06 14:34 | XMS_ITS | Encounter Summary ---
Author Organization [facility] Address [address] [place] [address] Care Team Providers Care Marketer Name Role Phone Rosalino Jung MD Primary Care Provider Unava Mika Lay DO Primary Care Provider Rabia jude [facility] Primary Care Provider Jose E Vogt MD Primary Care Provider Unav Bharat Myers MD, PHD Unavailable Unava ilable Darinel Sun PA-C Unavailable [phone] Encounter Details Date Type Department Care Team Description 01/18/2019 Entertainment Production Professional Report Medical Records [address] [place] [id number] Lindsay Whitman Social History Tobacco Use Types [...] on filedocumented in this encounter Care Teams Marketer Relationship Specialty Start Date End Date Rosalino Jung MD PCP - General Internal Medicine 11/11/17 07/21/20 Mika Le DO PCP - General Internal Medicine 07/22/20 [facility] PCP - General Internal Medicine 12/01/20 03/22/22 Jose E Dye MD PCP - General Family Practice 03/23/22 Bharat Anand MD, PHD Surgeon Neurosurgery 04/13/22 Darinel Sun PA-C [address] [place] [address] Specialist Neurosurgery 04/13/22 documented as of this encounter
--- OUTSIDE RECORDS SUMMARY | 2024-07-06 14:34 | XMS_ITS | Encounter Summary ---
Author Organization [facility] Address [address] [place] [address] Care Team Providers Care Respiratory Therapist Assistant Name Role Phone Mika Le DO Primary Care [facility] Primary Care Provider Jose E Vogt MD Primary Care Provider Unav ailBharat Seals MD, PHD Unavailable Unava ilDarinel Davis PA-C Unavailable [phone] Reason for Referral * Radiology Services (Routine) - Authorized/Booked Specialty Diagnoses / Procedures Referred By Wendy ulloa Referred To Contact Radiology Diagnoses Chronic bilateral low back pain, unspecified whether sciatica present Procedures MRI OF LUMBAR SPINE NO CONTRAST Mika Le DO [address] [place] [address] M[address]/[place] [address] Referral ID Status Reason Start Date Expiration Date V isits Requested Visits Authorized [id number] Authorized/B ooked 11/05/2020 03/07/2021 1 1 Reason for Visit * Reason Onset Date Comments Orders Call 11/04/2020 Encounter Details Date Type Department Care Team Description 11/04/2020 Pt. Non Urgent Medical Question [place] [facility] [place] [facility] [place] [address] [place] [phone] Mika Le DO Chronic bilateral low back [...] Primary documented in this encounter Care Teams Respiratory Therapist Assistant Relationship Specialty Start Date End Date Mika Le DO PCP - General Internal Medicine 07/22/20 1 [facility] Pcp PCP - General Internal Medicine 12/01/20 03/22/22 Jose E Dye MD PCP - General Family Practice 03/23/22 Bharat Anand MD, PHD Surgeon Neurosurgery 04/13/22 Darinel Sun PA-C [address] [place] [address] Specialist Neurosurgery 04/13/22 documented as of this encounter
--- OUTSIDE RECORDS SUMMARY | 2024-07-06 14:34 | XMS_ITS | Encounter Summary ---
Author Organization [facility] Address [address] [place] [address] Care Team Providers Care Trainmaster Name Role Phone Rosalino Jung MD Primary Care Provider Unava Mika Lay DO Primary Care Provider Rabia jude Baig Pcp Primary Care Provider Jose E Vogt MD Primary Care Provider Unav Bharat Myers MD, PHD Unavailable Unava ilable Darinel Sun PA-C Unavailable Encounter Details Date Type Department Care Team Description 02/20/2019 Telephone Medicine/Pediatrics - [address] [phone] Rosalino Jung MD Social History Tobacco Use [...] on filedocumented in this encounter Care Teams Trainmaster Relationship Specialty Start Date End Date Rosalino Jung MD PCP - General Internal Medicine 11/11/17 07/21/20 Mika Le DO PCP - General Internal Medicine 07/22/[address] [place] [address] PCP - General Internal Medicine 12/01/20 03/22/22 Jose E Dye MD PCP - General Family Practice 03/23/22 Bharat Anand MD, PHD Surgeon Neurosurgery 04/13/22 Darinel Sun PA-C [address] [place] [address] [place] [address] Specialist Neurosurgery 04/13/22 documented as of this encounter
--- OUTSIDE RECORDS SUMMARY | 2024-07-06 14:34 | XMS_ITS | Encounter Summary ---
Author Organization [facility] Address [address] [place] [address] Care Team Providers Care Aircraft Restorer Name Role Phone Viv Kauffman MD Primary Care Provider UnavailRosalino Nava MD Primary Care Provider Unava Mika Lay DO Primary Care Provider Rabia [facility], Pcp Primary Care Provider UnavailJose E Miller MD Primary Care Provider Unav Bharat Myers MD, PHD Unavailable Unava Darinel Thomas PA-C Unavailable [phone] Encounter Details Date Type Department Care Team Description 02/16/2017 Rn Occupational Report Medical Records [address] [place] [address] Valentin Leonard Social History Tobacco Use Types [...] on filedocumented in this encounter Care Teams Aircraft Restorer Relationship Specialty Start Date End Date Viv [...] Surgeon Neurosurgery 04/13/22 Darinel Sun PA-C [address] [place] [address] Specialist Neurosurgery 04/13/22 documented as of this encounter
--- OUTSIDE RECORDS SUMMARY | 2024-07-06 14:34 | XMS_ITS | Encounter Summary ---
Author Organization [facility] Address [address] [place] [address] Care Team Providers Care Forge Hand Name Role Phone Viv Kauffman MD Primary Care Provider Rosalino Dewey MD Primary Care Provider Unava Mika Lay DO Primary Care Provider Rabia [facility], Pcp Primary Care Provider UnavailJose E Miller MD Primary Care Provider Unav Bharat Myers MD, PHD Unavailable Unava ilDarinel Davis PA-C Unavailable [phone] Reason for Visit * Reason Onset Date Comments Orders Call 01/29/2015 Office notes and xrays Encounter Details Date Type Department Care Team Description 01/29/2015 Telephone Medicine/Pediatrics - [address] [id number] Viv Kauffman MD Orders Call (Office notes [...] - 01/29/2015 8:59 AM EST Jania from [facility] requesting the pt's last office note and any xrays done at [place] faxed to [phone]. documented in this encounter Plan of Treatment Not on file documented as of this encounter Visit Diagnoses Not on filedocumented in this encounter Care Teams Forge Hand Relationship Specialty Start Date End Date Viv Kauffman MD PCP - General Internal Medicine 01/17/15 11/10/17 Rosalino Jung MD PCP - General Internal Medicine 11/11/17 07/21/20 Mika Le DO PCP - General Internal Medicine 07/22/[address] [place] [address] PCP - General Internal Medicine 12/01/20 03/22/22 Jose E Dye MD PCP - General Family Practice 03/23/22 Bharat Anand MD, PHD Surgeon Neurosurgery 04/13/22 Darinel Sun PA-C [address] [place] [address] [place] [address] Specialist Neurosurgery 04/13/22 documented as of this encounter
--- OUTSIDE RECORDS SUMMARY | 2024-07-06 14:34 | XMS_ITS | Encounter Summary ---
Author Organization [facility] Address [address] [place] [address] Care Team Providers Care Dehydrogenation Converter Helper Name Role Phone Valentin Gaviria MD Primary Care Provider Unavail able Viv Kauffman MD Primary Care Provider Unavaila Rosalino Kirby MD Primary Care Provider Unava ilable Mika Le DO Primary Care Provider Rabia vailable [facility], Pcp Primary Care Provider UnavailJose E Miller MD Primary Care Provider Unav Bharat Myers MD, PHD Unavailable Unava ilable Darinel Sun PA-C Unavailable Encounter Details Date Type Department Care Team Description 09/30/2014 Recovery Manager Report Medical Records [address] [place] [address] Giselle Vaughan MD [address] [place] [address] [address] [place] [address] Social History Tobacco Use Types Packs/Day Years [...] on filedocumented in this encounter Care Teams Dehydrogenation Converter Helper Relationship Specialty Start Date End Date Valentin Gaviria MD PCP - General 06/28/00 01/16/15 Viv Kauffman MD PCP - General Internal Medicine 01/17/15 11/10/17 Rosalino Jung MD PCP - General Internal Medicine 11/11/17 07/21/20 Mika Le DO PCP - General Internal Medicine 07/22/[address] [place] [address] PCP - General Internal Medicine 12/01/20 03/22/22 Jose E Dye MD PCP - General Family Practice 03/23/22 Bharat Anand MD, PHD Surgeon Neurosurgery 04/13/22 Darinel Sun PA-C [address] [place] [address] Specialist Neurosurgery 04/13/22 documented as of this encounter
--- OUTSIDE RECORDS SUMMARY | 2024-07-06 14:34 | XMS_ITS | Encounter Summary ---
Author Organization [facility] Address [address] [place] [address] Care Team Providers Care Police Commissioner Name Role Phone Valentin Gaviria MD Primary Care Provider Unavail able Viv Kauffman MD Primary Care Provider Unavaila Rosalino Kirby MD Primary Care Provider Unava ilable Mika Le DO Primary Care Provider Rabia vailable [facility], Pcp Primary Care Provider UnavailJose E Miller MD Primary Care Provider Unav Bharat Myers MD, PHD Unavailable Unava ilable Darinel Sun PA-C Unavailable [phone] Encounter Details Date Type Department Care Team Description 12/10/2014 Dump Grounds Checker Report Medical Records [address] [place] [address] Giselle Vaughan MD [address] [place] [address] [address] [place] [address] Social History Tobacco Use Types Packs/Day Years [...] on filedocumented in this encounter Care Teams Police Commissioner Relationship Specialty Start Date End Date Valentin Gaviria MD PCP - General 06/28/00 01/16/15 Viv Kauffman MD PCP - General Internal Medicine 01/17/15 11/10/17 Rosalino Jung MD PCP - General Internal Medicine 11/11/17 07/21/20 Mika Le DO PCP - General Internal Medicine 07/22/[address] [place] [address] PCP - General Internal Medicine 12/01/20 03/22/22 Jose E Dye MD PCP - General Family Practice 03/23/22 Bharat Anand MD, PHD Surgeon Neurosurgery 04/13/22 Darinel Sun PA-C [address] [place] [address] Specialist Neurosurgery 04/13/22 documented as of this encounter
--- OUTSIDE RECORDS SUMMARY | 2024-07-06 14:34 | XMS_ITS | Encounter Summary ---
Author Organization [facility] Address [address] [place] [address] Care Team Providers Care Meat Processor Name Role Phone Rosalino Jung MD Primary Care Provider Unava Mika Lay DO Primary Care Provider Rabia jude Baig [facility] Primary Care Provider Jose E Vogt MD Primary Care Provider UnaBharat Gomes MD, PHD Unavailable Unava Darinel Thomas PA-C Unavailable [phone] Encounter Details Date Type Department Care Team Description 01/08/2019 Old Medical Records Medical Records [address] [place] [address] Abstract, Provider Social History Tobacco Use Types [...] on filedocumented in this encounter Care Teams Meat Processor Relationship Specialty Start Date End Date Rosalino Jung MD PCP - General Internal Medicine 11/11/17 07/21/20 Mika Le DO PCP - General Internal Medicine 07/22/20 [facility] PCP - General Internal Medicine 12/01/20 03/22/22 Jose E Dye MD PCP - General Family Practice 03/23/22 Bharat Anand MD, PHD Surgeon Neurosurgery 04/13/22 Darinel Sun PA-C [address] [place] [address] Specialist Neurosurgery 04/13/22 documented as of this encounter
--- OUTSIDE RECORDS SUMMARY | 2024-07-06 14:34 | XMS_ITS | Encounter Summary ---
Author Organization [facility] Address [address] [place] [address] Care Team Providers Care Labor Mediator Name Role Phone Jose E Dye MD Primary Care Provider Unav ailBharat Seals MD, PHD Unavailable Unava ilable Darinel Sun PA-C Unavailable [phone] Encounter Details Date Type Department Care Team Description 04/19/2022 Release of Information Medical Records [address] [place] [address] Abstract, Provider Social History Tobacco Use Types [...] on filedocumented in this encounter Care Teams Labor Mediator Relationship Specialty Start Date End Date Jose E Dye MD PCP - General Family Practice 03/23/22 Bharat Anand MD, PHD Surgeon Neurosurgery 04/13/22 Darinel Sun PA-C [facility] [address] [place] [address] Specialist Neurosurgery 04/13/22 documented as of this encounter
--- OUTSIDE RECORDS SUMMARY | 2024-07-06 14:34 | XMS_ITS | Encounter Summary ---
Author Organization [facility] Address [address] [place] [address] Care Team Providers Care Hand Almond Blancher Name Role Phone Jose E Dye MD Primary Care Provider Unav ailable Bharat Anand MD, PHD Unavailable Unava ilDarinel Davis PA-C Unavailable [phone] Encounter Details Date Type Department Care Team Description 04/15/2022 SCAN [facility] Neurosurgery [place] [address] [place] [address] Bharat Anand MD, PHD Social [...] on filedocumented in this encounter Care Teams Hand Almond Blancher Relationship Specialty Start Date End Date Jose E yDe MD PCP - General Family Practice 03/23/22 Bharat Anand MD, PHD Surgeon Neurosurgery 04/13/22 Darinel Sun PA-C [address] [place] [address] [place] [address] Specialist Neurosurgery 04/13/22 documented as of this encounter
--- OUTSIDE RECORDS SUMMARY | 2024-07-06 14:34 | XMS_ITS | Encounter Summary ---
Author Organization [facility] Address [address] [place] [address] Care Team Providers Care Product Marketing Director Name Role Phone Valentin Gaivria MD Primary Care Provider Unavail able Viv Kauffman MD Primary Care Provider Unavaila Rosalino Kirby MD Primary Care Provider Unava ilable Mika Le DO Primary Care Provider Rabia vailable [facility], Pcp Primary Care Provider UnavailJose E Miller MD Primary Care Provider Unav Bharat Myers MD, PHD Unavailable Unava ilable Darinel Sun PA-C Unavailable [phone] Encounter Details Date Type Department Care Team Description 10/16/2014 Apprentice Embalmer Report Medical Records [address] [place] [address] Valentin Leonard Social History Tobacco Use Types [...] filedocumented in this encounter Care Teams Product Marketing Director Relationship Specialty Start Date End Date [...] Surgeon Neurosurgery 04/13/22 Darinel Sun PA-C [address] [place] [address] Specialist Neurosurgery 04/13/22 documented as of this encounter
--- OUTSIDE RECORDS SUMMARY | 2024-07-06 14:34 | XMS_ITS | Encounter Summary ---
Author Organization [facility] Address [address] [place] [address] Care Team Providers Care Card Sorter Name Role Phone Rosalino Jung MD Primary Care Provider Unava Mika Lay DO Primary Care Provider Rabia jude [facility] Primary Care Provider Jose E Vogt MD Primary Care Provider Unav Bharat Myers MD, PHD Unavailable Unava ilable Darinel Sun PA-C Unavailable [phone] Encounter Details Date Type Department Care Team Description 02/08/2019 Drilling Field Specialist Report Medical Records [address] [place] [address] Lindsay Whitman Social History Tobacco Use Types [...] on filedocumented in this encounter Care Teams Card Sorter Relationship Specialty Start Date End Date Rosalino Jung MD PCP - General Internal Medicine 11/11/17 07/21/20 Mika Le DO PCP - General Internal Medicine 07/22/20 [facility] [place]CP - General Internal Medicine 12/01/20 03/22/22 Jose E Dye MD PCP - General Family Practice 03/23/22 Bharat Anand MD, PHD Surgeon Neurosurgery 04/13/22 Darinel Sun PA-C [address] [place] [address] Specialist Neurosurgery 04/13/22 documented as of this encounter
--- OUTSIDE RECORDS SUMMARY | 2024-07-06 14:34 | XMS_ITS | Encounter Summary ---
Author Organization [facility] Address [address] [place] [address] Care Team Providers Care Tank Shop Supervisor Name Role Phone Jose E Dye MD Primary Care Provider Unav ailable Bharat Anand MD, PHD Unavailable Unava ilDarinel Davis PA-C Unavailable [phone] Encounter Details Date Type Department Care Team Description 04/14/2022 SCAN [facility] Neurosurgery [place] [address] [place] [address] Bharat Anand MD, PHD Social [...] filedocumented in this encounter Care Teams Tank Shop Supervisor Relationship Specialty Start Date End Date Jose E Dye MD PCP - General Family Practice 03/23/22 Bharat Anand MD, PHD Surgeon Neurosurgery 04/13/22 Darinel Sun PA-C [address] [place] [address] [place] [address] Specialist Neurosurgery 04/13/22 documented as of this encounter
--- OUTSIDE RECORDS SUMMARY | 2024-07-06 14:34 | XMS_ITS | Encounter Summary ---
Author Organization [facility] Address [address] [place] [address] Care Team Providers Care Process Description Writer Name Role Phone Rosalino Jung MD Primary Care Provider Unava Mika Lay DO Primary Care Provider Rabia jdue Baig [facility] Primary Care Provider Jose E Vogt MD Primary Care Provider Unav Bharat Myers MD, PHD Unavailable Unava ilDarinel Davis PA-C Unavailable [phone] Encounter Details Date Type Department Care Team Description 06/19/2020 Orders Only Medicine/Pediatrics - [address] [phone] Rosalino Jung MD Vitamin D deficiency (Primary Dx) Social History Tobacco Use Types [...] Type Priority Associated Diagnoses Orde r Schedule 25 HYDROXY INCLUDES FRACTIONS IF PERFORMED Lab Routine Vitamin D deficiency Expected: 06/19/2020, Expires: 06/19/2021 documented as of this encounter Visit Diagnoses Diagnosis Vitamin D deficiency- Primary Unspecified vitamin D deficiency documented in this encounter Care Teams Process Description Writer Relationship Specialty Start Date End Date Rosalino Jung MD PCP - General Internal Medicine 11/11/17 07/21/20 Mika Le DO PCP - General Internal Medicine 07/22/20 [facility] PCP - General Internal Medicine 12/01/20 03/22/22 Jose E Dye MD PCP - General Family Practice 03/23/22 Bharat Anand MD, PHD Surgeon Neurosurgery 04/13/22 Darinel Sun PA-C [address] [place] [address] Specialist Neurosurgery 04/13/22 documented as of this encounter
--- OUTSIDE RECORDS SUMMARY | 2024-07-06 14:34 | XMS_ITS | Encounter Summary ---
Author Organization [facility] Address [address] [place] [address] Care Team Providers Care Type Rolling Machine Operator Name Role Phone Valentin Gaviria MD Primary Care Provider Unavail able Viv Kauffman MD Primary Care Provider Unavaila Rosalino Kirby MD Primary Care Provider Unava ilable Mika Le DO Primary Care Provider Rabia vailable [facility], Pcp Primary Care Provider UnavailJose E Miller MD Primary Care Provider Unav Bharat Myers MD, PHD Unavailable Unava ilable Darinel Sun PA-C Unavailable [phone] Encounter Details Date Type Department Care Team Description 07/24/2014 Ring Sorter Report Medical Records [address] [place] [address] [place] [address] [place], [place] [id number] Social History Tobacco Use Types Packs/Day Years [...] on filedocumented in this encounter Care Teams Type Rolling Machine Operator Relationship Specialty Start Date End Date Valentin Gaviria MD PCP - General 06/28/00 01/16/15 Viv Kauffman MD PCP - General Internal Medicine 01/17/15 11/10/17 Rosalino Jung MD PCP - General Internal Medicine 11/11/17 07/21/20 Mika Le DO PCP - General Internal Medicine 07/22/[address] [place] [address] PCP - General Internal Medicine 12/01/20 03/22/22 Jose E Dye MD PCP - General Family Practice 03/23/22 Bharat Anand MD, PHD Surgeon Neurosurgery 04/13/22 Darinel Sun PA-C [address] [place] [address] Specialist Neurosurgery 04/13/22 documented as of this encounter
--- OUTSIDE RECORDS SUMMARY | 2024-07-06 14:34 | XMS_ITS | Encounter Summary ---
Author Organization [facility] Address [address] [place] [address] Care Team Providers Care Diesel Bus Mechanic Name Role Phone Rosalino Jung MD Primary Care Provider Unava Mika Lay DO Primary Care Provider Rabia jude Baig [facility] Primary Care Provider Jose E Vogt MD Primary Care Provider Unav Bharat Myers MD, PHD Unavailable Unava ilable Darinel Sun PA-C Unavailable [phone] Encounter Details Date Type Department Care Team Description 09/29/2018 [facility] [address] [address] Md Vikash Social History Tobacco Use Types [...] --- Contact Information --- Contact Phone #: [phone] --- Medication Request Information --- Medication name: Diclofenca Sodium Topical Gel 1% Dosage: 100 g instructions: apply 2-3 timesa day # Dispensed: 100 g Ordering Provider: DR. Riggs Pharmacy: [facility] Other Details: This cream helps with the pain but unfortunayly it only last an hour or two. documented in this encounter Plan of Treatment Not on file documented as of this encounter Visit Diagnoses Not on filedocumented in this encounter Care Teams Diesel Bus Mechanic Relationship Specialty Start Date End Date Rosalino Jung MD PCP - General Internal Medicine 11/11/17 07/21/20 Mika Le DO PCP - General Internal Medicine 07/22/[address] [place], [place] [address] PCP - General Internal Medicine 12/01/20 03/22/22 Jose E Dye MD PCP - General Family Practice 03/23/22 Bharat Anand MD, PHD Surgeon Neurosurgery 04/13/22 Darinel Sun PA-C [address] [place] [address] [place] [address] Specialist Neurosurgery 04/13/22 documented as of this encounter
--- OUTSIDE RECORDS SUMMARY | 2024-07-06 14:34 | XMS_ITS | Encounter Summary ---
[facility] Organization [facility] Address [address] [place] [address] Care Team Providers Care Ring Packer Name Role Phone Rosalino Jung MD Primary Care Provider Unava Mika Lay DO Primary Care Provider Rabia jude Baig Pcp Primary Care Provider Jose E Vogt MD Primary Care Provider Unav Bharat Myers MD, PHD Unavailable Unava ilable Darinel Sun PA-C Unavailable [phone] Encounter Details Date Type Department Care Team Description 12/16/2017 Pt. Non Urgent Medic al Question Medicine/Pediatrics - [address] [address] Rosalino Jung MD Social History Tobacco Use [...] Progress Notes * Chioma Nuñez L.P.N. - 12/16/2017 10:42 AM EDTFrom: Alejandro Caruso To: Rosalino Jung MD Sent: 12/16/2017 10:37 AM EDT Subject: Knne Surgery DR. Jung I just wanted to let you know that my surgery is on schedule for next 12/22/2017, although they haven't talked personally to my surgeon DR Gordon his admin doesn't see an issue with my hospital visit as it pertains to my surgery date. I also wanted to ask you again if you couldwrite me a prescription for Oxycodone or some kind of pain killer for the next 7 days do to the fact I cant take anything else for pain during the week prior to my surgery. Thanks for your time, Alejandro Caruso documented in this encounter Plan of Treatment Not on file documented as of this encounter Visit Diagnoses Not on filedocumented in this encounter Care Teams Ring Packer Relationship Specialty Start Date End Date Rosalino Jung MD PCP - General Internal Medicine 11/11/17 07/21/20 Mika Le DO PCP - General Internal Medicine 07/22/[address] [place] [address] PCP - General Internal Medicine 12/01/20 03/22/22 Jose E Dye MD PCP - General Family Practice 03/23/22 Bharat Anand MD, PHD Surgeon Neurosurgery 04/13/22 Darinel Sun PA-C [address] [place] [address] Specialist Neurosurgery 04/13/22 documented as of this encounter
--- OUTSIDE RECORDS SUMMARY | 2024-07-06 14:34 | XMS_ITS | Encounter Summary ---
Author Organization [facility] Address [address] [place] [address] Care Team Providers Care Child Care Education Coordinator Name Role Phone Rosalino Jung MD Primary Care Provider Unava Mika Lay DO Primary Care Provider Rabia jude Baig [facility] Primary Care Provider Jose E Vogt MD Primary Care Provider UnaBharat Gomes MD, PHD Unavailable Unava ilable Darinel Sun PA-C Unavailable [phone] Reason for Visit * Reason Onset Date Comments Back Pain 05/16/2020 last appt with angela conti 03/09, Geovanna Perez 04/10/20 pt has been referred to pain amnagement Encounter Details Date Type Department Care Team Description 05/16/2020 Pt. 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
--- OUTSIDE RECORDS SUMMARY | 2024-07-06 14:34 | XMS_ITS | Encounter Summary ---
Author Organization [facility] Address [address] [place] [address] Care Team Providers Care Petroleum Products Sales Representative Name Role Phone Rosalino Jung MD Primary Care Provider Unava Mika Lay DO Primary Care Provider Rabia jude Baig [facility] Primary Care Provider Jose E Vogt MD Primary Care Provider UnaBharat Gomes MD, PHD Unavailable Unava Darinel Thomas PA-C Unavailable [phone] Encounter Details Date Type Department Care Team Description 01/18/2019 Old Medical Records Medical Records [address] [place] [address] Abstract, Provider Social History Tobacco Use Types [...] on filedocumented in this encounter Care Teams Petroleum Products Sales Representative Relationship Specialty Start Date End Date Rosalino Jung MD PCP - General Internal Medicine 11/11/17 07/21/20 Mika Le DO PCP - General Internal Medicine 07/22/20 [facility] PCP - General Internal Medicine 12/01/20 03/22/22 Jose E Dye MD PCP - General Family Practice 03/23/22 Bharat Anand MD, PHD Surgeon Neurosurgery 04/13/22 Darinel Sun PA-C [address] [place] [address] Specialist Neurosurgery 04/13/22 documented as of this encounter
--- OUTSIDE RECORDS SUMMARY | 2024-07-06 14:34 | XMS_ITS | Encounter Summary ---
Author Organization [facility] Address [address] [place] [address] Care Team Providers Care Container Shop Welder Name Role Phone Mika Le DO Primary Care [facility] Primary Care Provider UnavailJose E Miller MD Primary Care Provider Unav ailBharat Seals MD, PHD Unavailable Unava ilDarinel Davis PA-C Unavailable [phone] Encounter Details Date Type Department Care Team Description 10/30/2020 Pt. Non Urgent Medic al Question Adult Medicine [address] [address] Mika Le DO Social History Tobacco Use [...] AM EDT documented as of this encounter Plan of Treatment Not on file documented as of this encounter Visit Diagnoses Not on filedocumented in this encounter Care Teams Container Shop Welder Relationship Specialty Start Date End Date Mika Le DO PCP - General Internal Medicine 07/22/20 [facility] PCP - General Internal Medicine 12/01/20 03/22/22 Jose E Dye MD PCP - General Family Practice 03/23/22 Bharat Anand MD, PHD Surgeon Neurosurgery 04/13/22 Darinel Sun PA-C [address] [place] [address] Specialist Neurosurgery 04/13/22 documented as of this encounter
--- OUTSIDE RECORDS SUMMARY | 2024-07-06 14:34 | XMS_ITS | Encounter Summary ---
Author Organization [facility] Address [address] [place] [address] Care Team Providers Care Baby Formula Worker Name Role Phone Rosalino Jung MD Primary Care Provider Unava Mika Lay DO Primary Care Provider Rabia jude Baig Pcp Primary Care Provider Jose E Vogt MD Primary Care Provider Unav Bharat Myers MD, PHD Unavailable Unava ilable Darinel Sun PA-C Unavailable [phone] Encounter Details Date Type Department Care Team Description 03/04/2019 Pt. Non Urgent Medic al Question Medicine/Pediatrics - [address] [address] Rosalino Jung MD Social History Tobacco Use [...] on filedocumented in this encounter Care Teams Baby Formula Worker Relationship Specialty Start Date End Date Rosalino Jung MD PCP - General Internal Medicine 11/11/17 07/21/20 Mika Le DO PCP - General Internal Medicine 07/22/[address] [place] [address] PCP - General Internal Medicine 12/01/20 03/22/22 Jose E Dye MD PCP - General Family Practice 03/23/22 Bharat Anand MD, PHD Surgeon Neurosurgery 04/13/22 Darinel Sun PA-C [address] [place] [address] [place] [address] Specialist Neurosurgery 04/13/22 documented as of this encounter
--- OUTSIDE RECORDS SUMMARY | 2024-07-06 14:34 | XMS_ITS | Encounter Summary ---
Author Organization [facility] Address [address] [place] [address] Care Team Providers Care Continuous Linter Drier Operator Name Role Phone Viv Kauffman MD Primary Care Provider UnavailRosalino Nava MD Primary Care Provider Unava ilMika Maya DO Primary Care Provider [facility]ia [facility], Pcp Primary Care Provider UnavailJose E Miller MD Primary Care Provider Unav Bharat Myers MD, PHD Unavailable Unava ilDarinel Davis PA-C Unavailable [phone] Encounter Details Date Type Department Care Team Description 05/28/2015 Superintendent Sales Report Medical Records [address] [place] [phone] [place] [address] [place] [address] [id number] Social History Tobacco Use Types Packs/Day Years [...] on filedocumented in this encounter Care Teams Continuous Linter Drier Operator Relationship Specialty Start Date End Date Viv Kauffman MD PCP - General Internal Medicine 01/17/15 11/10/17 Rosalino Jung MD PCP - General Internal Medicine 11/11/17 07/21/20 Mika Le DO PCP - General Internal Medicine 07/22/[address] [place] [address] PCP - General Internal Medicine 12/01/20 03/22/22 Jose E Dye MD PCP - General Family Practice 03/23/22 Bharat Anand MD, PHD Surgeon Neurosurgery 04/13/22 Darinel Sun PA-C [address] [place] [address] Specialist Neurosurgery 04/13/22 documented as of this encounter
--- OUTSIDE RECORDS SUMMARY | 2024-07-06 14:34 | XMS_ITS | Encounter Summary ---
Author Organization [facility] Address [address] [place] [address] Care Team Providers Care Drop Hammer Pile Driver Operator Name Role Phone Rosalino Jung MD Primary Care Provider Unava Mika Lay DO Primary Care Provider Rabia jude Baig Pcp Primary Care Provider Jose E Vogt MD Primary Care Provider Unav Bharat Myers MD, PHD Unavailable Unava ilable Darinel Sun PA-C Unavailable [phone] Encounter Details Date Type Department Care Team Description 02/22/2019 Pt. Non Urgent Medic al Question Medicine/Pediatrics - [address] [address] Rosalino Jung MD Social History Tobacco Use [...] as of this encounter Progress Notes * Cihoma Nuñez L.P.N. - 02/22/2019 4:25 PM ESTFrom: [...] on filedocumented in this encounter Care Teams Drop Hammer Pile Driver Operator Relationship Specialty Start Date End Date Rosalino Jung MD PCP - General Internal Medicine 11/11/17 07/21/20 Mika Le DO PCP - General Internal Medicine 07/22/[address] [place] [address] PCP - General Internal Medicine 12/01/20 03/22/22 Jose E Dye MD PCP - General Family Practice 03/23/22 Bharat Anand MD, PHD Surgeon Neurosurgery 04/13/22 Darinel Sun PA-C [address] [place] [address] Specialist Neurosurgery 04/13/22 documented as of this encounter
--- OUTSIDE RECORDS SUMMARY | 2024-07-06 14:34 | XMS_ITS | Encounter Summary ---
Author Organization [facility] Address [address] [place] [address] Care Team Providers Care Substation Operator Transforming Name Role Phone Valentin Gaviria MD Primary Care Provider Unavail able Viv Kauffman MD Primary Care Provider Unavaila Rosalino Kirby MD Primary Care Provider Unava ilable Mika Le DO Primary Care Provider Rabia vailable [facility], Pcp Primary Care Provider UnavailJose E Miller MD Primary Care Provider Unav Bharat Myers MD, PHD Unavailable Unava ilable Darinel Sun PA-C Unavailable [phone] Encounter Details Date Type Department Care Team Description 08/26/2013 Orders Only Medicine/Pediatrics - [address] [address] Valentin Gaviria MD Social History Tobacco Use [...] on filedocumented in this encounter Care Teams Substation Operator Transforming Relationship Specialty Start Date End Date Valentin [...] Anand MD, PHD Surgeon Neurosurgery 04/13/22 Darinel Snu PA-C [address] [place] [address] Specialist Neurosurgery 04/13/22 documented as of this encounter
--- OUTSIDE RECORDS SUMMARY | 2024-07-06 14:34 | XMS_ITS | Encounter Summary ---
Author Organization [facility] Address [address] [place] [address] Care Team Providers Care Tieing Machine Operator Name Role Phone Viv Kauffman MD Primary Care Provider UnavailRosalino Nava MD Primary Care Provider Unava ilMika Maya DO Primary Care Provider Rabia [facility], Pcp Primary Care Provider UnavailJose E Miller MD Primary Care Provider Unav Bharat Myers MD, PHD Unavailable Unava Darinel Thomas PA-C Unavailable [phone] Encounter Details Date Type Department Care Team Description 01/23/2015 Release of Information Medical Records [address] [place] [id number] Abstract, Provider Social History Tobacco Use Types [...] on filedocumented in this encounter Care Teams Tieing Machine Operator Relationship Specialty Start Date End [...] Surgeon Neurosurgery 04/13/22 Darinel Sun PA-C [address] [place] [address] Specialist Neurosurgery 04/13/22 documented as of this encounter
--- OUTSIDE RECORDS SUMMARY | 2024-07-06 14:34 | XMS_ITS | Encounter Summary ---
Author Organization [facility] Address [address] [place] [address] Care Team Providers Care Geomagnetician Name Role Phone Rosalino Jung MD Primary Care Provider Unava ilMika Maya DO Primary Care Provider Rabia jude [facility] Primary Care Provider Jose E Vogt MD Primary Care Provider Unav Bharat Myers MD, PHD Unavailable Unava ilable Darinel Sun PA-C Unavailable [phone] Reason for Referral * EXTERNAL (Routine) - Authorized/Booked Specialty Diagnoses / Procedures Referred By Contac t Referred To Contact ORTHOPEDICS / Orthopedic Procedures REFERRAL TO ORTHOPEDICS (OUT OF NETWORK) Rosalino Jung MD [address] [place] [address] [facility] Referral ID Status Reason Start Date Expiration Date V isits Requested Visits Authorized SEE NOTE Authorized/B ooked 09/17/2018 12/19/2018 1 1 Encounter Details Date Type Department Care Team Description 09/14/2018 Pt. Non Urgent Medic al Question Medicine/Pediatrics - [address] [phone] Rosalino Jung MD Social History Tobacco Use [...] 3rd opinion with Dr. Ritter out of [facility]. I was wondering if someone could give me a referral to [facility] in [place], [place]. Phonenumber is [phone]. I would still like the referral for [place], I would go their first just because of the distance to [facility] and if they say no in [place] then I would like to try [facility]. Dr. Jung I really hope you believe [...] on filedocumented in this encounter Care Teams Geomagnetician Relationship Specialty Start Date End Date Rosalino Jung MD PCP - General Internal Medicine 11/11/17 07/21/20 Mika Le DO PCP - General Internal Medicine 07/22/20 [facility] PCP - General Internal Medicine 12/01/20 03/22/22 Jose E Dye MD PCP - General Family Practice 03/23/22 Bharat Anand MD, PHD Surgeon Neurosurgery 04/13/22 Darinel Sun PA-C [address] [place] [address] Specialist Neurosurgery 04/13/22 documented as of this encounter
--- OUTSIDE RECORDS SUMMARY | 2024-07-06 14:34 | XMS_ITS | Encounter Summary ---
Author Organization [facility] Address [address] [place] [address] Care Team Providers Care Sales Office Manager Name Role Phone Viv Kauffman MD Primary Care Provider UnavailRosalino Nava MD Primary Care Provider Unava Mika Lay DO Primary Care Provider Rabia [facility], Pcp Primary Care Provider UnavailJose E Miller MD Primary Care Provider Unav Bharat Myers MD, PHD Unavailable Unava Darinel Thomas PA-C Unavailable [phone] Encounter Details Date Type Department Care Team Description 03/12/2015 Educational Psychologist Report Medical Records [address] [place] [id number] Valentin Leonard Social History Tobacco Use Types [...] on filedocumented in this encounter Care Teams Sales Office Manager Relationship Specialty Start Date End Date [...] PHD Surgeon Neurosurgery 04/13/22 Darinel Sun PA-C [address] [place] [address] Specialist Neurosurgery 04/13/22 documented as of this encounter
--- OUTSIDE RECORDS SUMMARY | 2024-07-06 14:34 | XMS_ITS | Encounter Summary ---
Author Organization [facility] Address [address] [place] [address] Care Team Providers Care Spring Coiler Name Role Phone Valentin Gaviria MD Primary Care Provider Unavail able Viv Kauffman MD Primary Care Provider Unavaila Rosalino Kirby MD Primary Care Provider Unava ilable Mika Le DO Primary Care Provider Rabia vailable [facility], Pcp Primary Care Provider UnavailJose E Miller MD Primary Care Provider Unav Bharat Myers MD, PHD Unavailable Unava ilable Darinel Sun PA-C Unavailable [phone] Encounter Details Date Type Department Care Team Description 10/28/2014 Liability Claims Representative Report Medical Records [address] [place] [address] Giselle Vaughan MD [address] [place] [address] [address] [place] [address] Social History Tobacco Use Types Packs/Day Years [...] on filedocumented in this encounter Care Teams Spring Coiler Relationship Specialty Start Date End Date Valentin Gaviria MD PCP - General 06/28/00 01/16/15 Viv Kauffman MD PCP - General Internal Medicine 01/17/15 11/10/17 Rosalino Jung MD PCP - General Internal Medicine 11/11/17 07/21/20 Mika Le DO PCP - General Internal Medicine 07/22/[address] [place] [address] PCP - General Internal Medicine 12/01/20 03/22/22 Jose E Dye MD PCP - General Family Practice 03/23/22 Bharat Anand MD, PHD Surgeon Neurosurgery 04/13/22 Darinel Sun PA-C [address] [place] [address] Specialist Neurosurgery 04/13/22 documented as of this encounter
--- OUTSIDE RECORDS SUMMARY | 2024-07-06 14:34 | XMS_ITS | Encounter Summary ---
Author Organization [facility] Address [address] [place] [address] Care Team Providers Care Agriscience Teacher Name Role Phone Rosalino Jung MD Primary Care Provider Unava Mika Lay DO Primary Care Provider Rabia jude Baig Pcp Primary Care Provider Jose E Vogt MD Primary Care Provider Unav Bharat Myers MD, PHD Unavailable Unava ilable Darinel Sun PA-C Unavailable [phone] Encounter Details Date Type Department Care Team Description 03/06/2020 Pt. Non Urgent Medic al Question Adult Medicine [address] [address] Rosalino Jung MD Social History Tobacco Use [...] on filedocumented in this encounter Care Teams Agriscience Teacher Relationship Specialty Start Date End Date Rosalino Jung MD PCP - General Internal Medicine 11/11/17 07/21/20 Mika Le DO PCP - General Internal Medicine 07/22/[address] [place] [address] PCP - General Internal Medicine 12/01/20 03/22/22 Jose E Dye MD PCP - General Family Practice 03/23/22 Bharat Anand MD, PHD Surgeon Neurosurgery 04/13/22 Darinel Sun PA-C [address] [place] [address] Specialist Neurosurgery 04/13/22 documented as of this encounter
--- OUTSIDE RECORDS SUMMARY | 2024-07-06 14:34 | XMS_ITS | Encounter Summary ---
Author Organization [facility] Address [address] [place] [address] Care Team Providers Care Nutrition Associate Name Role Phone Rosalino Jung MD Primary Care Provider Unava Mika Lay DO Primary Care Provider Rabia jude Baig Pcp Primary Care Provider Jose E Vogt MD Primary Care Provider Unav Bharat Myers MD, PHD Unavailable Unava Darinel Thomas PA-C Unavailable [phone] Encounter Details Date Type Department Care Team Description 05/22/2020 Refill Medicine/Pediatrics [address] [phone] Sherley Hawkins PA-C [address] [place] [address] Social History Tobacco Use Types Packs/Day Years [...] region documented in this encounter Care Teams Nutrition Associate Relationship Specialty Start Date End Date Rosalino Jung MD PCP - General Internal Medicine 11/11/17 07/21/20 Mika Le DO PCP - General Internal Medicine 07/22/20 [facility] PCP - General Internal Medicine 12/01/20 03/22/22 Jose E Dye MD PCP - General Family Practice 03/23/22 Bharat Anand MD, PHD Surgeon Neurosurgery 04/13/22 Darinel Sun PA-C [address] [place] [address] Specialist Neurosurgery 04/13/22 documented as of this encounter
--- OUTSIDE RECORDS SUMMARY | 2024-07-06 14:34 | XMS_ITS | Encounter Summary ---
Author Organization [facility] Address [address] [place] [address] Care Team Providers Care Construction Services Technician Name Role Phone Valentin Gaviria MD Primary Care Provider Unavail able Viv Kauffman MD Primary Care Provider Unavaila Rosalino Kirby MD Primary Care Provider Unava ilable Mika Le DO Primary Care Provider Rabia vailable [facility], Pcp Primary Care Provider UnavailJose E Miller MD Primary Care Provider Unav Bharat Myers MD, PHD Unavailable Unava ilable Darinel Sun PA-C Unavailable Encounter Details Date Type Department Care Team Description 07/17/2013 Controlled Substance Plan Medical Records [address] [place] [address] Abstract, Provider Social History Tobacco Use Types [...] on filedocumented in this encounter Care Teams Construction Services Technician Relationship Specialty Start Date End Date Valentin [...] Surgeon Neurosurgery 04/13/22 Darinel Sun PA-C [address] [place] [address] Specialist Neurosurgery 04/13/22 documented as of this encounter
--- OUTSIDE RECORDS SUMMARY | 2024-07-06 14:34 | XMS_ITS | Encounter Summary ---
Author Organization [facility] Address [address] [place] [address] Care Team Providers Care Dip Guider Stoves Name Role Phone Mika Le DO Primary Care [facility] Primary Care Provider UnavailJose E Miller MD Primary Care Provider Unav ailBharat Seals MD, PHD Unavailable Unava ilDarinel Davis PA-C Unavailable [phone] Reason for Referral * EXTERNAL (Priority) - Authorized/Booked Specialty Diagnoses / Procedures Referred By Wendy ulloa Referred To Contact ORTHOPEDICS / Orthopedic Procedures REFERRAL TO ORTHOPEDICS (OUT OF NETWORK) Mika Le DO [address] [place] [address] ePtr Ritter MD [address] [place] [address] [address] [place] [address] Referral ID Status Reason Start Date Expiration Date V isits Requested Visits Authorized [id number] Authorized/B ooked 11/04/2020 02/04/2021 1 1 Encounter Details Date Type Department Care Team Description 11/04/2020 Pt. Non Urgent Medical Question Adult Medicine [address] [address] Mika Le DO Low back pain, unspecified [...] in place without complication evident. POS - [id number] Narrative [place] OTHER EXTERNAL - 11/04/2020 [...] in place without complication evident. POS - [id number] Mika Le DO RADIOLOGY [place] OTHER [...] (HCC) documented in this encounter Care Teams Dip Guider Stoves Relationship Specialty Start Date End Date Mika Le DO PCP - General Internal Medicine 07/22/[address] [place] [address] PCP - General Internal Medicine 12/01/20 03/22/22 Jose E Dye MD PCP - General Family Practice 03/23/22 Bharat Anand MD, PHD Surgeon Neurosurgery 04/13/22 Darinel Sun PA-C [address] [place] [address] Specialist Neurosurgery 04/13/22 documented as of this encounter
--- OUTSIDE RECORDS SUMMARY | 2024-07-06 14:34 | XMS_ITS | Encounter Summary ---
Author Organization [facility] Address [address] [place] [address] Care Team Providers Care Tieing Machine Operator Name Role Phone Valentin Gaviria MD Primary Care Provider Unavail able Viv Kauffman MD Primary Care Provider Unavaila Rosalino Kirby MD Primary Care Provider Unava ilable Mika Le DO Primary Care Provider Rabia vailable [facility], Pcp Primary Care Provider UnavailJose E Mliler MD Primary Care Provider Unav Bharat Myers MD, PHD Unavailable Unava ilable Darinel Sun PA-C Unavailable [phone] Encounter Details Date Type Department Care Team Description 09/12/2012 Telephone Lineman Report Medical Records [address] [place] [address] Mika Duque Social History Tobacco Use Types [...] Surgeon Neurosurgery 04/13/22 Darinel Sun PA-C [address] [place] [address] Specialist Neurosurgery 04/13/22 documented as of this encounter
--- OUTSIDE RECORDS SUMMARY | 2024-07-06 14:34 | XMS_ITS | Encounter Summary ---
[facility] Organization [facility] Address [address] [place] [address] Care Team Providers Care Well Site Drilling Engineer Name Role Phone Valentin Gaviria MD Primary Care Provider Unavail able Viv Kauffman MD Primary Care Provider Unavaila Rosalino Kirby MD Primary Care Provider Unava ilable Mika Le DO Primary Care Provider Rabia vailable [facility], Pcp Primary Care Provider UnavailJose E Miller MD Primary Care Provider Unav Bharat Myers MD, PHD Unavailable Unava ilable Darinel Sun PA-C Unavailable [phone] Encounter Details Date Type Department Care Team Description 09/22/2012 Controlled Substance Contract with Plan Medical Records [address] [place] [address] Abstract, Provider Social History Tobacco Use Types [...] on filedocumented in this encounter Care Teams Well Site Drilling Engineer Relationship Specialty Start Date End Date [...] Surgeon Neurosurgery 04/13/22 Darinel Sun PA-C [address] [place] [address] Specialist Neurosurgery 04/13/22 documented as of this encounter
--- OUTSIDE RECORDS SUMMARY | 2024-07-06 14:35 | XMS_ITS | Encounter Summary ---
[facility] Organization [facility] Address [address] [place] [address] Care Team Providers Care Api Architect Name Role Phone Viv Kauffman MD Primary Care Provider UnavailRosalino Nava MD Primary Care Provider Unava ilMika Maya DO Primary Care Provider [facility], Pcp Primary Care Provider UnavailJose E Miller MD Primary Care Provider Unav Bharat Myers MD, PHD Unavailable Unava ilDarinel Davis PA-C Unavailable [phone] Encounter Details Date Type Department Care Team Description 11/11/2015 Bat Lathe Operator Report Medical Records [address] [place] [address] Giselle Vaughan MD [address] [place] [address] [address] [place] [address] Social History Tobacco Use Types Packs/Day Years [...] on filedocumented in this encounter Care Teams Api Architect Relationship Specialty Start Date End Date Viv [...] Surgeon Neurosurgery 04/13/22 Darinel Sun PA-C [address] [place] [address] Specialist Neurosurgery 04/13/22 documented as of this encounter
--- OUTSIDE RECORDS SUMMARY | 2024-07-06 14:35 | XMS_ITS | Encounter Summary ---
Author Organization [facility] Address [address] [place] [address] Care Team Providers Care Intelligence Research Specialist Name Role Phone Valentin Gaviria MD Primary Care Provider Unavail able Viv Kauffman MD Primary Care Provider Unavaila Rosalino Kirby MD Primary Care Provider Unava ilable Mika Le DO Primary Care Provider Rabia vailable [facility], Pcp Primary Care Provider UnavailJose E Miller MD Primary Care Provider Unav Bharat Myers MD, PHD Unavailable Unava ilable Darinel Sun PA-C Unavailable [phone] Encounter Details Date Type Department Care Team Description 06/28/2013 Hospital Medical Records [address] [place] [address] Jonathon Patton MD Social History Tobacco Use [...] on filedocumented in this encounter Care Teams Intelligence Research Specialist Relationship Specialty Start Date End Date Valentin Gaviria MD PCP - General 06/28/00 01/16/15 Viv Kauffman MD PCP - General Internal Medicine 01/17/15 11/10/17 Rosalino Jung MD PCP - General Internal Medicine 11/11/17 07/21/20 Mika Le DO PCP - General Internal Medicine 07/22/[address] [place] [address] PCP - General Internal Medicine 12/01/20 03/22/22 Jose E Dye MD PCP - General Family Practice 03/23/22 Bharat Anand MD, PHD Surgeon Neurosurgery 04/13/22 Darinel Sun PA-C [address] [place] [address] Specialist Neurosurgery 04/13/22 documented as of this encounter
--- OUTSIDE RECORDS SUMMARY | 2024-07-06 14:35 | XMS_ITS | Encounter Summary ---
Author Organization [facility] Address [address] [place] [address] Care Team Providers Care Water Treatment Plant Supervisor Name Role Phone Rosalino Jung MD Primary Care Provider Unava Mika Lay DO Primary Care Provider Rabia Olaf Strauss Primary Care Provider Jose E Vogt MD Primary Care Provider Unav Bharat Myers MD, PHD Unavailable Unava ilable Darinel Sun PA-C Unavailable [phone] Encounter Details Date Type Department Care Team Description 10/22/2019 Pt. Non Urgent Medical Question Adult Medicine [address] [address] Rosalino Jung MD Failed back syndrome of [...] region documented in this encounter Care Teams Water Treatment Plant Supervisor Relationship Specialty Start Date End Date Rosalino Jung MD PCP - General Internal Medicine 11/11/17 07/21/20 Mika Le DO PCP - General Internal Medicine 07/22/[address] [place] [address] PCP - General Internal Medicine 12/01/20 03/22/22 Jose E Dye MD PCP - General Family Practice 03/23/22 Bharat Anand MD, PHD Surgeon Neurosurgery 04/13/22 Darinel Sun PA-C [address] [place] [address] Specialist Neurosurgery 04/13/22 documented as of this encounter
--- OUTSIDE RECORDS SUMMARY | 2024-07-06 14:35 | XMS_ITS | Encounter Summary ---
Author Organization [facility] Address [address] [place] [address] Care Team Providers Care Kitchen Stewardess Name Role Phone Rosalino Jung MD Primary Care Provider Unava Mika Lay DO Primary Care Provider Rabia jude Baig Pcp Primary Care Provider Jose E Vogt MD Primary Care Provider Unav Bharat Myers MD, PHD Unavailable Unava ilable Darinel Sun PA-C Unavailable [phone] Encounter Details Date Type Department Care Team Description 07/31/2019 Pt. Non Urgent Medic al Question Adult Medicine [address] [address] Rosalino Jung MD Social History [...] on filedocumented in this encounter Care Teams Kitchen Stewardess Relationship Specialty Start Date End Date Rosalino Jung MD PCP - General Internal Medicine 11/11/17 07/21/20 Mika Le DO PCP - General Internal Medicine 07/22/[address] [place] [address] PCP - General Internal Medicine 12/01/20 03/22/22 Jose E Dye MD PCP - General Family Practice 03/23/22 Bharat Anand MD, PHD Surgeon Neurosurgery 04/13/22 Darinel Sun PA-C [address] [place] [address] Specialist Neurosurgery 04/13/22 documented as of this encounter
--- OUTSIDE RECORDS SUMMARY | 2024-07-06 14:35 | XMS_ITS | Encounter Summary ---
Author Organization [facility] Address [address] [place] [address] Care Team Providers Care Farm Machinery Set Up Mechanic Name Role Phone Rosalino Jung MD Primary Care Provider Unava Mika Lay DO Primary Care Provider Rabia jude Baig Pcp Primary Care Provider Jose E Vogt MD Primary Care Provider Unav Bharat Myers MD, PHD Unavailable Unava ilable Darinel Sun PA-C Unavailable [phone] Encounter Details Date Type Department Care Team Description 07/29/2019 Pt. Non Urgent Medic al Question Adult Medicine [address] [address] Rosalino Jung MD Social History Tobacco Use [...] 07/29/2019 2:45 PM EDT [facility] the [place] [facility] open for X1RAYS??? I wouldn't mind driving there if it gets me in Tuesday07-30-2019. documented in this encounter Plan of Treatment Not on file documented as of this encounter Visit Diagnoses Not on filedocumented in this encounter Care Teams Farm Machinery Set Up Mechanic Relationship Specialty Start Date End Date Rosalino Jung MD PCP - General Internal Medicine 11/11/17 07/21/20 Mika Le DO PCP - General Internal Medicine 07/22/20 [facility] PCP - General Internal Medicine 12/01/20 03/22/22 Jose E Dye MD PCP - General Family Practice 03/23/22 Bharat Anand MD, PHD Surgeon Neurosurgery 04/13/22 Darinel Sun PA-C [address] [place] [address] Specialist Neurosurgery 04/13/22 documented as of this encounter
--- OUTSIDE RECORDS SUMMARY | 2024-07-06 14:35 | XMS_ITS | Encounter Summary ---
Author Organization [facility] Address [address] [place] [address] Care Team Providers Care Translator Interpreter Name Role Phone Rosalino Jung MD Primary Care Provider Unava Mika Lay DO Primary Care Provider Rabia jude Baig [facility] Primary Care Provider Jose E Vogt MD Primary Care Provider Bharat Last MD, PHD Unavailable Unava Darinel Thomas PA-C Unavailable [phone] Encounter Details Date Type Department Care Team Description 03/13/2018 PNO Controlled Substance Contract Medical Records [address] [place] [address] Abstract, Provider Social History Tobacco Use Types [...] on filedocumented in this encounter Care Teams Translator Interpreter Relationship Specialty Start Date End Date Rosalino Jung MD PCP - General Internal Medicine 11/11/17 07/21/20 Mika Le DO PCP - General Internal Medicine 07/22/20 [facility] PCP - General Internal Medicine 12/01/20 03/22/22 Jose E Dye MD PCP - General Family Practice 03/23/22 Bharat Anand MD, PHD Surgeon Neurosurgery 04/13/22 Darinel Sun PA-C [address] [place] [address] Specialist Neurosurgery 04/13/22 documented as of this encounter
--- OUTSIDE RECORDS SUMMARY | 2024-07-06 14:35 | XMS_ITS | Encounter Summary ---
Author Organization [facility] Address [address] [place] [address] Care Team Providers Care Hazmat Tanker Driver Name Role Phone Rosalino Jung MD Primary Care Provider Unava Mika Lay DO Primary Care Provider Rabia Olaf Strauss Primary Care Provider Jose E Vogt MD Primary Care Provider UnaBharat Gomes MD, PHD Unavailable Unava Darinel Thomas PA-C Unavailable [phone] Encounter Details Date Type Department Care Team Description 04/03/2018 [facility] Medical Records [address] [place] [address] Abstract, Provider Social History Tobacco Use Types [...] on filedocumented in this encounter Care Teams Hazmat Tanker Driver Relationship Specialty Start Date End Date Rosalino Jung MD PCP - General Internal Medicine 11/11/17 07/21/20 Mika Le DO PCP - General Internal Medicine 07/22/20 [facility] [place] - General Internal Medicine 12/01/20 03/22/22 Jose E Dye MD PCP - General Family Practice 03/23/22 Bharat Anand MD, PHD Surgeon Neurosurgery 04/13/22 Darinel Sun PA-C [address] [place] [address] Specialist Neurosurgery 04/13/22 documented as of this encounter
--- OUTSIDE RECORDS SUMMARY | 2024-07-06 14:35 | XMS_ITS | Encounter Summary ---
Author Organization [facility] Address [address] [place] [address] Care Team Providers Care Credit Union Examiner Name Role Phone Rosalino Jung MD Primary Care Provider Unava Mika Lay DO Primary Care Provider Rabia jude Baig Pcp Primary Care Provider Jose E Vogt MD Primary Care Provider Unav Bharat Myers MD, PHD Unavailable Unava ilable Darinel Sun PA-C Unavailable [phone] Reason for Visit * Reason Onset Date Comments Medication 04/11/2019 prep Encounter Details Date Type Department Care Team Description 04/11/2019 Refill Gastroenterology - [address] [place] [address] Lois Stephens MD [address] [place] [address] [id number] Medication (prep) Social History Tobacco Use Types [...] filedocumented in this encounter Care Teams Credit Union Examiner Relationship Specialty Start Date End Date Rosalino Jung MD PCP - General Internal Medicine 11/11/17 07/21/20 Mika Le DO PCP - General Internal Medicine 07/22/20 [facility] PCP - General Internal Medicine 12/01/20 03/22/22 Jose E Dye MD PCP - General Family Practice 03/23/22 Bharat Anand MD, PHD Surgeon Neurosurgery 04/13/22 Darinel Sun PA-C [address] [place] [address] Specialist Neurosurgery 04/13/22 documented as of this encounter
--- OUTSIDE RECORDS SUMMARY | 2024-07-06 14:35 | XMS_ITS | Encounter Summary ---
[facility] Address [address] [place] [address] Care Team Providers Care Molder Machine Name Role Phone Viv Kauffman MD Primary Care Provider UnavailRosalino Nava MD Primary Care Provider Unava Mika Lay DO Primary Care Provider [facility], Pcp Primary Care Provider UnavailJose E Miller MD Primary Care Provider Unav Bharat Myers MD, PHD Unavailable Unava Darinel Thomas PA-C Unavailable [phone] Encounter Details Date Type Department Care Team Description 07/24/2015 Release of Information Medical Records [address] [place] [phone] Abstract, Provider Social History Tobacco Use Types [...] on filedocumented in this encounter Care Teams Molder Machine Relationship Specialty Start Date End Date Viv [...] Surgeon Neurosurgery 04/13/22 Darinel Sun PA-C [address] [place] [address] Specialist Neurosurgery 04/13/22 documented as of this encounter
--- OUTSIDE RECORDS SUMMARY | 2024-07-06 14:35 | XMS_ITS | Encounter Summary ---
[facility] Organization [facility] Address [address] [place] [address] Care Team Providers Care Electron Beam Machine Welder Setter Name Role Phone Rosalino Jung MD Primary Care Provider Unava Mika Lay DO Primary Care Provider Rabia jude Baig [facility] Primary Care Provider Jose E Vogt MD Primary Care Provider UnaBharat Gomes MD, PHD Unavailable Unava Darinel Thomas PA-C Unavailable Encounter Details Date Type Department Care Team Description 09/18/2018 Tax Services Manager Report Medical Records [address] [place] [address] Petr Ritter MD Social History Tobacco Use [...] on filedocumented in this encounter Care Teams Electron Beam Machine Welder Setter Relationship Specialty Start Date End Date Rosalino Jung MD PCP - General Internal Medicine 11/11/17 07/21/20 Mika Le DO PCP - General Internal Medicine 07/22/20 [facility] PCP - General Internal Medicine 12/01/20 03/22/22 Jose E Dye MD PCP - General Family Practice 03/23/22 Bharat Anand MD, PHD Surgeon Neurosurgery 04/13/22 Darinel Sun PA-C [address] [place] [address] Specialist Neurosurgery 04/13/22 documented as of this encounter
--- OUTSIDE RECORDS SUMMARY | 2024-07-06 14:35 | XMS_ITS | Encounter Summary ---
Author Organization [facility] Address [address] [place] [address] Care Team Providers Care Acid Pumper Name Role Phone Viv Kauffman MD Primary Care Provider UnavailRosalino Nava MD Primary Care Provider Unava Mika Lay DO Primary Care Provider Rabia [facility], Pcp Primary Care Provider UnavailJose E Miller MD Primary Care Provider Unav Bharat Myers MD, PHD Unavailable Unava Darinel Thomas PA-C Unavailable [phone] Encounter Details Date Type Department Care Team Description 03/29/2017 Greeter Guest Services Report Medical Records [address] [place] [address] Valentin Leonard Social History Tobacco Use Types [...] on filedocumented in this encounter Care Teams Acid Pumper Relationship Specialty Start Date End Date Viv [...] Surgeon Neurosurgery 04/13/22 Darinel Sun PA-C [address] [place] [address] Specialist Neurosurgery 04/13/22 documented as of this encounter
--- OUTSIDE RECORDS SUMMARY | 2024-07-06 14:35 | XMS_ITS | Encounter Summary ---
Author Organization [facility] Address [address] [place] [address] Care Team Providers Care Subway Train Driver Name Role Phone Viv Kauffman MD Primary Care Provider UnavailRosalino Nava MD Primary Care Provider Unava Mika Lay DO Primary Care Provider Rabia [facility], Pcp Primary Care Provider UnavailJose E Miller MD Primary Care Provider Unav Bharat Myers MD, PHD Unavailable Unava Darinel Thomas PA-C Unavailable Encounter Details Date Type Department Care Team Description 09/15/2016 Firewall Security Engineer Report Medical Records [address] [place] [phone] Valentin Leonard Social History Tobacco Use Types [...] on filedocumented in this encounter Care Teams Subway Train Driver Relationship Specialty Start Date End Date [...] PHD Surgeon Neurosurgery 04/13/22 Darinel Sun PA-C [address] [place] [address] Specialist Neurosurgery 04/13/22 documented as of this encounter
--- OUTSIDE RECORDS SUMMARY | 2024-07-06 14:35 | XMS_ITS | Encounter Summary ---
Author Organization [facility] Address [address] [place] [address] Care Team Providers Care Meteorological Engineer Name Role Phone Juan Jung MD Primary Care Provider Unava Mika Lay DO Primary Care Provider Rabia jude Baig Pcp Primary Care Provider Jose E Vogt MD Primary Care Provider Unav Bharat Myers MD, PHD Unavailable Unava ilable Drainel Snu PA-C Unavailable [phone] Encounter Details Date Type Department Care Team Description 04/14/2018 Refill Medicine/Pediatrics [address] [address] Juan Jung MD Social History Tobacco Use [...] Truong M.A. - 04/14/2018 11:36 AM EST [employer] message sent to pt. * Telephone Encounter - Sary Truong M.A. - 04/14/2018 11:33 AM ESTFrom: Alejandro Caruso To: Juan Jung MD Sent: 04/14/2018 10:05 AM EST Subject: Medication Renewal Request Original authorizing provider: MD Alejandro CHÁVEZ would like a refill of the following medications: amlodipine (NORVASC) 5 MG tablet [JUAN JUNG MD] Preferred pharmacy: [id number] [place] [address] Comment: DR. Jung, [facility] just sent me an email saying that my doctor didn't authorize the refill of Amlodipine that I requested earlier this week. Could someone please check into this? Thank you, Alejandro documented in this encounter Plan of Treatment Not on file documented as of this encounter Visit Diagnoses Diagnosis Essential hypertension Unspecified essential hypertension documented in this encounter Care Teams Meteorological Engineer Relationship Specialty Start Date End Date Juan Jung MD PCP - General Internal Medicine 11/11/17 07/21/20 Mika Le DO PCP - General Internal Medicine 07/22/[address] [place] [address] PCP - General Internal Medicine 12/01/20 03/22/22 Jose E Dye MD PCP - General Family Practice 03/23/22 Bharat Anand MD, PHD Surgeon Neurosurgery 04/13/22 Darinel Sun PA-C [address] [place] [address] Specialist Neurosurgery 04/13/22 documented as of this encounter
--- OUTSIDE RECORDS SUMMARY | 2024-07-06 14:35 | XMS_ITS | Encounter Summary ---
Author Organization [facility] Address [address] [place] [address] Care Team Providers Care Racket Stringer Name Role Phone Rosalino Jung MD Primary Care Provider Unava Mika Lay DO Primary Care Provider Rabia jude Baig Pcp Primary Care Provider Jose E Vogt MD Primary Care Provider Unav Bharat Myers MD, PHD Unavailable Unava ilable Darinel Sun PA-C Unavailable [phone] Encounter Details Date Type Department Care Team Description 03/29/2018 Seo Manager Report Medical Records [address] [place] [address] Tera Gordon MD [address] [place] [address] Social History Tobacco Use Types Packs/Day Years [...] on filedocumented in this encounter Care Teams Racket Stringer Relationship Specialty Start Date End Date Rosalino Jung MD PCP - General Internal Medicine 11/11/17 07/21/20 Mika Le DO PCP - General Internal Medicine 07/22/20 [facility] PCP - General Internal Medicine 12/01/20 03/22/22 Jose E Dye MD PCP - General Family Practice 03/23/22 Bharat Anand MD, PHD Surgeon Neurosurgery 04/13/22 Darinel Sun PA-C [address] [place] [address] Specialist Neurosurgery 04/13/22 documented as of this encounter
--- OUTSIDE RECORDS SUMMARY | 2024-07-06 14:35 | XMS_ITS | Encounter Summary ---
Author Organization [facility] Address [address] [place] [address] Care Team Providers Care Booking Officer Name Role Phone Valentin Gaviria MD Primary Care Provider Unavail able Viv Kauffman MD Primary Care Provider Unavaila Rosalino Kirby MD Primary Care Provider Unava ilable Mika Le DO Primary Care Provider Rabia vailable [facility], Pcp Primary Care Provider UnavailJose E Miller MD Primary Care Provider Unav Bharat Myers MD, PHD Unavailable Unava ilable Darinel Sun PA-C Unavailable [phone] Encounter Details Date Type Department Care Team Description 12/12/2013 Controlled Substance Plan Medical Records [address] [place] [address] Abstract, Provider Social History Tobacco Use Types [...] on filedocumented in this encounter Care Teams Booking Officer Relationship Specialty Start Date End Date [...] Surgeon Neurosurgery 04/13/22 Darinel Sun PA-C [address] [place] [address] Specialist Neurosurgery 04/13/22 documented as of this encounter
--- OUTSIDE RECORDS SUMMARY | 2024-07-06 14:35 | XMS_ITS | Encounter Summary ---
Author Organization [facility] Address [address] [place] [address] Care Team Providers Care A R Collections Rep Name Role Phone Rosalino Jung MD Primary Care Provider Unava Mika Lay DO Primary Care Provider Rabia Olaf Strauss Primary Care Provider Jose E Vogt MD Primary Care Provider Bharat Last MD, PHD Unavailable Unava Darinel Thomas PA-C Unavailable [phone] Encounter Details Date Type Department Care Team Description 03/23/2018 [place] Records Medical Records [address] [place] [address] Abstract, Provider Social History Tobacco Use Types [...] on filedocumented in this encounter Care Teams A R Collections Rep Relationship Specialty Start Date End Date Rosalino Jung MD PCP - General Internal Medicine 11/11/17 07/21/20 Mika Le DO PCP - General Internal Medicine 07/22/[address] [place] [address] PCP - General Internal Medicine 12/01/20 03/22/22 Jose E Dye MD PCP - General Family Practice 03/23/22 Bharat Anand MD, PHD Surgeon Neurosurgery 04/13/22 Darinel Sun PA-C [address] [place] [address] Specialist Neurosurgery 04/13/22 documented as of this encounter
--- OUTSIDE RECORDS SUMMARY | 2024-07-06 14:35 | XMS_ITS | Encounter Summary ---
Author Organization [facility] Address [address] [place] [address] Care Team Providers Care Beef Grader Name Role Phone Rosalino Jung MD Primary Care Provider Unava Mika Lay DO Primary Care Provider Rabia Olaf Strauss Primary Care Provider Jose E Vogt MD Primary Care Provider Unav Bharat Myers MD, PHD Unavailable Unava ilDarinel Davis PA-C Unavailable [phone] Encounter Details Date Type Department Care Team Description 12/10/2019 Scribing Machine Operator Report Medical Records [address] [place] [address] Lovely Ngo Social History Tobacco Use Types [...] on filedocumented in this encounter Care Teams Beef Grader Relationship Specialty Start Date End Date Rosalino Jung MD PCP - General Internal Medicine 11/11/17 07/21/20 Mika Le DO PCP - General Internal Medicine 07/22/20 [facility] PCP - General Internal Medicine 12/01/20 03/22/22 Jose E Dye MD PCP - General Family Practice 03/23/22 Bharat Anand MD, PHD Surgeon Neurosurgery 04/13/22 Darinel Sun PA-C [address] [place] [address] Specialist Neurosurgery 04/13/22 documented as of this encounter
--- OUTSIDE RECORDS SUMMARY | 2024-07-06 14:35 | XMS_ITS | Encounter Summary ---
Author Organization [facility] Address [address] [place] [address] Care Team Providers Care Dock Clerk Name Role Phone Juan Jung MD Primary Care Provider Unava Mika Lay DO Primary Care Provider Rabia jude Baig Pcp Primary Care Provider Jose E Vogt MD Primary Care Provider Unav Bharat Myers MD, PHD Unavailable Unava ilable Darinel Sun PA-C Unavailable [phone] Encounter Details Date Type Department Care Team Description 12/07/2018 Refill Medicine/Pediatrics - [address] [id number] Juan Jung MD Social History Tobacco Use [...] Tab [JUAN JUNG MD] Preferred pharmacy: [id number] Comment: Dr. Jung, Could you please [...] region documented in this encounter Care Teams Dock Clerk Relationship Specialty Start Date End Date Juan Jung MD PCP - General Internal Medicine 11/11/17 07/21/20 Mika Le DO PCP - General Internal Medicine 07/22/[address] [place] [address] PCP - General Internal Medicine 12/01/20 03/22/22 Jose E Dye MD PCP - General Family Practice 03/23/22 Bharat Anand MD, PHD Surgeon Neurosurgery 04/13/22 Darinel Sun PA-C [address] [facility] [address] [place] [address] Specialist Neurosurgery 04/13/22 documented as of this encounter
--- OUTSIDE RECORDS SUMMARY | 2024-07-06 14:35 | XMS_ITS | Encounter Summary ---
Author Organization [facility] Address [address] [place] [address] Care Team Providers Care Tray Room Worker Name Role Phone Viv Kauffman MD Primary Care Provider Rosalino Dewey MD Primary Care Provider Unava Mika Lay DO Primary Care Provider [facility], Pcp Primary Care Provider Jose E Vogt MD Primary Care Provider Unav Bharat Myers MD, PHD Unavailable Unava Darinel Thomas PA-C Unavailable [phone] Encounter Details Date Type Department Care Team Description 07/27/2016 Wellness Visit Medical Records [address] [place] [address] Viv Kauffman MD Social History Tobacco Use [...] on filedocumented in this encounter Care Teams Tray Room Worker Relationship Specialty Start Date End Date Viv [...] PHD Surgeon Neurosurgery 04/13/22 Darinel Sun PA-C [address] [place] [address] Specialist Neurosurgery 04/13/22 documented as of this encounter
--- OUTSIDE RECORDS SUMMARY | 2024-07-06 14:35 | XMS_ITS | Encounter Summary ---
Author Organization [facility] Address [address] [place] [address] Care Team Providers Care Siebel Crm Developer Name Role Phone Rosalino Jung MD Primary Care Provider Unava Mika Lay DO Primary Care Provider Rabia jude Baig Pcp Primary Care Provider Jose E Vogt MD Primary Care Provider Unav Bharat Myers MD, PHD Unavailable Unava ilable Darinel Sun PA-C Unavailable [phone] Encounter Details Date Type Department Care Team Description 11/26/2019 Pt. Non Urgent Medic al Question Adult Medicine [address] [address] Rosalino Jung MD Social History Tobacco Use [...] on filedocumented in this encounter Care Teams Siebel Crm Developer Relationship Specialty Start Date End Date Rosalino Jung MD PCP - General Internal Medicine 11/11/17 07/21/20 Mika Le DO PCP - General Internal Medicine 07/22/[address] [place] [address] PCP - General Internal Medicine 12/01/20 03/22/22 Jose E Dye MD PCP - General Family Practice 03/23/22 Bharat Anand MD, PHD Surgeon Neurosurgery 04/13/22 Darinel Sun PA-C [address] [place] [address] [place] [address] Specialist Neurosurgery 04/13/22 documented as of this encounter
--- OUTSIDE RECORDS SUMMARY | 2024-07-06 14:35 | XMS_ITS | Encounter Summary ---
Author Organization [facility] Address [address] [place] [address] Care Team Providers Care Negative Cleaner Name Role Phone Rosalino Jung MD Primary Care Provider Unava Mika Lay DO Primary Care Provider Rabia jude Baig Pcp Primary Care Provider Jose E Vogt MD Primary Care Provider Unav Bharat Myers MD, PHD Unavailable Unava ilable Darinel Sun PA-C Unavailable [phone] Encounter Details Date Type Department Care Team Description 10/12/2019 Pt. Non Urgent Medic al Question Adult Medicine [address] [address] Rosalino Jung MD Social History Tobacco Use [...] on filedocumented in this encounter Care Teams Negative Cleaner Relationship Specialty Start Date End Date Rosalino Jung MD PCP - General Internal Medicine 11/11/17 07/21/20 Mika Le DO PCP - General Internal Medicine 07/22/20 [facility] PCP - General Internal Medicine 12/01/20 03/22/22 Jose E Dye MD PCP - General Family Practice 03/23/22 Bharat Anand MD, PHD Surgeon Neurosurgery 04/13/22 Darinel Sun PA-C [address] [place] [address] Specialist Neurosurgery 04/13/22 documented as of this encounter
--- OUTSIDE RECORDS SUMMARY | 2024-07-06 14:35 | XMS_ITS | Encounter Summary ---
Author Organization [facility] Address [address] [place] [address] Care Team Providers Care Senior Information Security Architect Name Role Phone Rosalino Jung MD Primary Care Provider Unava Mika Lay DO Primary Care Provider Rabia Olaf Strauss Primary Care Provider Jose E Vogt MD Primary Care Provider Bharat Last MD, PHD Unavailable Unava Darinel Thomas PA-C Unavailable [phone] Encounter Details Date Type Department Care Team Description 07/26/2018 Transfer Records Medical Records [address] [place] [address] Abstract, Provider Social History Tobacco Use Types [...] filedocumented in this encounter Care Teams Senior Information Security Architect Relationship Specialty Start Date End Date Rosalino Jung MD PCP - General Internal Medicine 11/11/17 07/21/20 Mika Le DO PCP - General Internal Medicine 07/22/[address] [place] [address] PCP - General Internal Medicine 12/01/20 03/22/22 Jose E Dye MD PCP - General Family Practice 03/23/22 Bharat Anand MD, PHD Surgeon Neurosurgery 04/13/22 Darinel Sun PA-C [address] [place] [address] Specialist Neurosurgery 04/13/22 documented as of this encounter
--- OUTSIDE RECORDS SUMMARY | 2024-07-06 14:35 | XMS_ITS | Encounter Summary ---
Author Organization [facility] Address [address] [place] [address] Care Team Providers Care Angiography Technologist Name Role Phone Rosalino Jung MD Primary Care Provider Unava Mika Lay DO Primary Care Provider Rabia jude Baig Pcp Primary Care Provider Jose E Vogt MD Primary Care Provider Unav Bharat Myers MD, PHD Unavailable Unava ilable Darinel Sun PA-C Unavailable [phone] Encounter Details Date Type Department Care Team Description 11/14/2019 Pt. Non Urgent Medic al Question Adult Medicine [address] [address] Rosalino Jung MD Social History Tobacco Use [...] Progress Notes * Ivon Márquez M.A. - 11/14/2019 9:32 AM EDTFrom: Alejandro Caruso To: Rosalino Jung MD Sent: 11/14/2019 9:01 AM EDT Subject: Facet Joint Injection Dr. Jung, The injection didn't work, I know it's only 7 days but I also know my back. Thanks anyway Alejandro Caruso documented in this encounter Plan of Treatment Not on file documented as of this encounter Visit Diagnoses Not on filedocumented in this encounter Care Teams Angiography Technologist Relationship Specialty Start Date End Date Rosalino Jung MD PCP - General Internal Medicine 11/11/17 07/21/20 Mika Le DO PCP - General Internal Medicine 07/22/20 [facility] PCP - General Internal Medicine 12/01/20 03/22/22 Jose E Dye MD PCP - General Family Practice 03/23/22 Bharat Anand MD, PHD Surgeon Neurosurgery 04/13/22 Darinel Sun PA-C [address] [facility] [address] [place] [address] Specialist Neurosurgery 04/13/22 documented as of this encounter
--- OUTSIDE RECORDS SUMMARY | 2024-07-06 14:35 | XMS_ITS | Encounter Summary ---
Author Organization [facility] Address [address] [place] [address] Care Team Providers Care Anesthesiology Resident Name Role Phone Rosalino Jung MD Primary Care Provider Unava Mika Lay DO Primary Care Provider Rabia jude [facility] Primary Care Provider Jose E Vogt MD Primary Care Provider Unav Bharat Myers MD, PHD Unavailable Unava ilable Darinel Sun PA-C Unavailable [phone] Encounter Details Date Type Department Care Team Description 04/12/2018 Recreation Clerk Report Medical Records [address] [place] [address] Nan Shaikh NP Social History Tobacco Use [...] on filedocumented in this encounter Care Teams Anesthesiology Resident Relationship Specialty Start Date End Date Rosalino Jung MD PCP - General Internal Medicine 11/11/17 07/21/20 Mika Le DO PCP - General Internal Medicine 07/22/20 [facility] PCP - General Internal Medicine 12/01/20 03/22/22 Jose E Dye MD PCP - General Family Practice 03/23/22 Bharat Anand MD, PHD Surgeon Neurosurgery 04/13/22 Darinel Sun PA-C [address] [place] [address] Specialist Neurosurgery 04/13/22 documented as of this encounter
--- OUTSIDE RECORDS SUMMARY | 2024-07-06 14:35 | XMS_ITS | Encounter Summary ---
Author Organization [facility] Address [address] [place] [address] Care Team Providers Care Middleware Engineer Name Role Phone Viv Kauffman MD Primary Care Provider UnavailRosalino Nava MD Primary Care Provider Unava ilable Mika Le DO Primary Care Provider [facility]ia [facility], Pcp Primary Care Provider UnavailJose E Miller MD Primary Care Provider Unav Bharat Myers MD, PHD Unavailable Unava ilable Darinel Sun PA-C Unavailable [phone] Reason for Referral * EXTERNAL (Routine) - Authorized/Booked Specialty Diagnoses / Procedures Referred By Contac t Referred To Contact PAIN MANAGEMENT / Pain Management Procedures REFERRAL TO PAIN MANAGEMENT Viv Kauffman MD [address] [place] [address] Valentin Leonard [address] [place] [address] Referral ID Status Reason Start Date Expiration Date V isits Requested Visits Authorized [id number] Authorized/B ooked 04/26/2017 07/30/2017 1 1 Encounter Details Date Type Department Care Team Description 04/25/2017 Pt. Non Urgent Medical Question Medicine/Pediatrics - [address] [address] Viv Kauffman MD Social History Tobacco Use [...] Progress Notes * Janett Dailey RN - 04/26/2017 9:15 AM ESTFrom: Alejandro Beverly Couture To: Viv Kauffman MD Sent: 04/25/2017 11:06 PM EST Subject: OxCodone Dr. Kauffman, My back dr Valentin Leonard is not treating me anymore do to the fact that in 3 years nothing has changed I'm still in extreme pain. I used to take 20 mg Oxycodone 6 times a day and 30 mg OxyContin 3 times a day he has already taken me off the Oxycodone but I still need it. Could you please write me a prescription for the Oxycodone until I can get an appointment to see you? I will make the appointment today but I really need that script today. I cant even do the basic things without sever pain like getting dressed, taking a shower, driving, shaving, walking, and sitting. Please let me know. documented in this encounter Plan of Treatment Not on file documented as of this encounter Visit Diagnoses Not on filedocumented in this encounter Care Teams Middleware Engineer Relationship Specialty Start Date End Date Viv Kauffman MD PCP - General Internal Medicine 01/17/15 11/10/17 Rosalino Jung MD PCP - General Internal Medicine 11/11/17 07/21/20 Mika Le DO PCP - General Internal Medicine 07/22/[address] [place] [address] Pcp PCP - General Internal Medicine 12/01/20 03/22/22 Jose E Dye MD PCP - General Family Practice 03/23/22 Bharat Anand MD, PHD Surgeon Neurosurgery 04/13/22 Darinel Sun PA-C [address] [place] [address] Specialist Neurosurgery 04/13/22 documented as of this encounter
--- OUTSIDE RECORDS SUMMARY | 2024-07-06 14:35 | XMS_ITS | Encounter Summary ---
Author Organization [facility] Address [address] [place] [address] Care Team Providers Care Geospatial Information Technologist Name Role Phone Rosalino Jung MD Primary Care Provider Unava Mika aLy DO Primary Care Provider Rabia jude Baig [facility] Primary Care Provider Jose E Vogt MD Primary Care Provider UnaBharat Gomes MD, PHD Unavailable Unava Darinel Thomas PA-C Unavailable [phone] Encounter Details Date Type Department Care Team Description 10/09/2018 Community Fundraiser Report Medical Records [address] [place] [address] Petr Ritter MD Social History Tobacco Use [...] on filedocumented in this encounter Care Teams Geospatial Information Technologist Relationship Specialty Start Date End Date Rosalino Jung MD PCP - General Internal Medicine 11/11/17 07/21/20 Mika Le DO PCP - General Internal Medicine 07/22/20 [facility] PCP - General Internal Medicine 12/01/20 03/22/22 Jose E Dye MD PCP - General Family Practice 03/23/22 Bharat Anand MD, PHD Surgeon Neurosurgery 04/13/22 Darinel Sun PA-C [address] [place] [address] Specialist Neurosurgery 04/13/22 documented as of this encounter
--- OUTSIDE RECORDS SUMMARY | 2024-07-06 14:35 | XMS_ITS | Encounter Summary ---
Author Organization [facility] Address [address] [place] [address] Care Team Providers Care Web Applications Programmer Name Role Phone Rosalino Jung MD Primary Care Provider Unava Mika Lay DO Primary Care Provider Rabia jude [facility] Primary Care Provider Jose E Vogt MD Primary Care Provider Unav Bharat Myers MD, PHD Unavailable Unava ilable Darinel Sun PA-C Unavailable [phone] Encounter Details Date Type Department Care Team Description 02/16/2018 Newspaper Manager Report Medical Records [address] [place] [address] Nan Shaikh NP Social History Tobacco Use [...] filedocumented in this encounter Care Teams Web Applications Programmer Relationship Specialty Start Date End Date Rosalino Jung MD PCP - General Internal Medicine 11/11/17 07/21/20 Mika Le DO PCP - General Internal Medicine 07/22/20 [facility] PCP - General Internal Medicine 12/01/20 03/22/22 Jose E Dye MD PCP - General Family Practice 03/23/22 Bharat Anand MD, PHD Surgeon Neurosurgery 04/13/22 Darinel Sun PA-C [address] [place] [address] Specialist Neurosurgery 04/13/22 documented as of this encounter
--- OUTSIDE RECORDS SUMMARY | 2024-07-06 14:35 | XMS_ITS | Encounter Summary ---
Author Organization [facility] Address [address] [place] [address] Care Team Providers Care Spanish Translator Name Role Phone Mika Le DO Primary Care Provider [facility] Primary Care Provider UnavailJose E Miller MD Primary Care Provider Unav ailBharat Seals MD, PHD Unavailable Unava ilDarinel Davis PA-C Unavailable [phone] Encounter Details Date Type Department Care Team Description 08/15/2020 Pt. Non Urgent Medic al Question Adult Medicine [address] [address] Mika Le DO Social History Tobacco Use [...] on filedocumented in this encounter Care Teams Spanish Translator Relationship Specialty Start Date End Date Mika Le DO PCP - General Internal Medicine 07/22/20 1 [facility] PCP - General Internal Medicine 12/01/20 03/22/22 Jose E Dye MD PCP - General Family Practice 03/23/22 Bharat Anand MD, PHD Surgeon Neurosurgery 04/13/22 Darinel Sun PA-C [address] [place] [address] Specialist Neurosurgery 04/13/22 documented as of this encounter
--- OUTSIDE RECORDS SUMMARY | 2024-07-06 14:35 | XMS_ITS | Encounter Summary ---
Author Organization [facility] Address [address] [place] [address] Care Team Providers Care Strategic Debriefing Specialist Name Role Phone Rosalino Jung MD Primary Care Provider Unava Mika Lay DO Primary Care Provider Rabia Olaf Strauss Primary Care Provider Jose E Vogt MD Primary Care Provider Bharat Last MD, PHD Unavailable Unava Darinel Thomas PA-C Unavailable [phone] Encounter Details Date Type Department Care Team Description 11/09/2018 Release of Information Medical Records [address] [place] [address] Abstract, Provider Social History Tobacco Use Types [...] on filedocumented in this encounter Care Teams Strategic Debriefing Specialist Relationship Specialty Start Date End Date Rosalino Jung MD PCP - General Internal Medicine 11/11/17 07/21/20 Mika Le DO PCP - General Internal Medicine 07/22/20 [facility] PCP - General Internal Medicine 12/01/20 03/22/22 Jose E Dye MD PCP - General Family Practice 03/23/22 Bharat Anand MD, PHD Surgeon Neurosurgery 04/13/22 Darinel Sun PA-C [address] [place] [address] Specialist Neurosurgery 04/13/22 documented as of this encounter
--- OUTSIDE RECORDS SUMMARY | 2024-07-06 14:35 | XMS_ITS | Encounter Summary ---
Author Organization [facility] Address [address] [place] [address] Care Team Providers Care Front End Developer Javascript Html Css Name Role Phone Mika Le DO Primary Care Provider [facility] Primary Care Provider UnavailJose E Miller MD Primary Care Provider Unav ailBharat Seals MD, PHD Unavailable Unava ilDarinel Davis PA-C Unavailable [phone] Reason for Visit * Reason Comments E-prescribe Rx Request Encounter Details Date Type Department Care Team Description 10/17/2020 Refill Adult Medicine [address] [address] Ethel Ludwig NP E-prescribe Rx Request Social History Tobacco Use [...] encounter Miscellaneous Notes * Telephone Encounter - Linda Nur M.A. - 10/21/2020 3:33 PM EDT Last visit 10/07/20 Follow-up 11/19/20 Please advise Lab Results Component Value Date NA 138 03/23/2019 K 4.1 03/23/2019 CO2 30 03/23/2019 CL 104 03/23/2019 BUN 9 03/23/2019 CREAT 0.81 03/23/2019 GLU 106 03/23/2019 CA 9.5 03/23/2019 GFR > 60 03/23/2019 * Telephone Encounter - Nettie Marin - 10/21/2020 10:56 AM EDT Patient would like script to be: E-PRESCRIBED/FAXED TO PHARMACY WHEN WAS THE PATIENT'S LAST APPOINTMENT IN ADULT MEDICINE? 10/07/20 WHEN WAS THE LAST TIME THE PATIENT SAW THEIR PCP? Same as above Does patient have an upcoming appointment? Yes 11/19/20 (THE MEDICATION REQUESTED IS ON THE MED [...] N/A Patients current insurance carrier is: Payor: [facility] / Plan: [facility] / Product Type: HMO [id number] documented in this encounter Plan of Treatment Not on file documented as of this encounter Visit Diagnoses Not on filedocumented in this encounter Care Teams Front End Developer Javascript Html Css Relationship Specialty Start Date End Date Mika Le DO PCP - General Internal Medicine 07/22/[address] [place] [address] PCP - General Internal Medicine 12/01/20 03/22/22 Jose E Dye MD PCP - General Family Practice 03/23/22 Bharat Anand MD, PHD Surgeon Neurosurgery 04/13/22 Darinel Sun PA-C [address] [place] [address] Specialist Neurosurgery 04/13/22 documented as of this encounter
--- OUTSIDE RECORDS SUMMARY | 2024-07-06 14:35 | XMS_ITS | Encounter Summary ---
Author Organization [facility] Address [address] [place] [address] Care Team Providers Care Seamer Elastic Band Name Role Phone Rosalino Jung MD Primary Care Provider Unava Mika Lay DO Primary Care Provider Rabia jude Baig [facility] Primary Care Provider Jose E Vogt MD Primary Care Provider Unav Bharat Myers MD, PHD Unavailable Unava ilable Darinel Sun PA-C Unavailable [phone] Encounter Details Date Type Department Care Team Description 05/18/2019 Orders Only Medical Records [address] [place] [address] Lois Stephens MD [address] [place] [address] Social History Tobacco Use Types Packs/Day Years [...] Certified Gastroenterology and Internal Medicine Transplant Hepatology [facility] documented in this encounter Plan of Treatment Not on file documented as of this encounter Procedures Procedure Name Priority Date/Time Associated Diagnosis Comments OUTSIDE PATHOLOGY Routine 05/16/2019 documented in this encounter Results * OUTSIDE PATHOLOGY (05/16/2019) Lois Stephens MD OUTSIDE LAB documented in this encounter Visit Diagnoses Not on filedocumented in this encounter Care Teams Seamer Elastic Band Relationship Specialty Start Date End Date Rosalino Jung MD PCP - General Internal Medicine 11/11/17 07/21/20 Mika Le DO PCP - General Internal Medicine 07/22/[address] [place] [address] PCP - General Internal Medicine 12/01/20 03/22/22 Jose E Dye MD PCP - General Family Practice 03/23/22 Bharat Anand MD, PHD Surgeon Neurosurgery 04/13/22 Darinel Sun PA-C [address] [place] [address] [place] [address] Specialist Neurosurgery 04/13/22 documented as of this encounter
--- OUTSIDE RECORDS SUMMARY | 2024-07-06 14:35 | XMS_ITS | Encounter Summary ---
Author Organization [facility] Address [address] [place] [address] Care Team Providers Care Nephrologist Name Role Phone Rosalino Jung MD Primary Care Provider Unava Mika Lay DO Primary Care Provider Rabia jude Baig Pcp Primary Care Provider Jose E Vogt MD Primary Care Provider Unav Bharat Myers MD, PHD Unavailable Unava ilable Darinel Sun PA-C Unavailable Encounter Details Date Type Department Care Team Description 11/28/2019 Pt. Non Urgent Medic al Question Adult Medicine [address] [address] Rosalino Jung MD Social History Tobacco Use [...] on filedocumented in this encounter Care Teams Nephrologist Relationship Specialty Start Date End Date Rosalino Jung MD PCP - General Internal Medicine 11/11/17 07/21/20 Mika Le DO PCP - General Internal Medicine 07/22/[address] [place] [address] PCP - General Internal Medicine 12/01/20 03/22/22 Jose E Dye MD PCP - General Family Practice 03/23/22 Bharat Anand MD, PHD Surgeon Neurosurgery 04/13/22 Darinel Sun PA-C [address] [place] [address] [place] [address] Specialist Neurosurgery 04/13/22 documented as of this encounter
--- OUTSIDE RECORDS SUMMARY | 2024-07-06 14:35 | XMS_ITS | Encounter Summary ---
Author Organization [facility] Address [address] [place] [address] Care Team Providers Care Hog Ribber Name Role Phone Mika Le DO Primary Care Provider [facility] Primary Care Provider UnavailJose E Miller MD Primary Care Provider Unav Bharat Myers MD, PHD Unavailable Unava ilDarinel Davis PA-C Unavailable [phone] Encounter Details Date Type Department Care Team Description 09/26/2020 Pt. Non Urgent Medic al Question Adult Medicine [address] [address] Mika Le DO Social History Tobacco Use [...] system is down. Please call me at [phone] Thanks, Alejandro Caruso documented in this encounter Plan of Treatment Not on file documented as of this encounter Visit Diagnoses Not on filedocumented in this encounter Care Teams Hog Ribber Relationship Specialty Start Date End Date Mika Le DO PCP - General Internal Medicine 07/22/[address] [facility] PCP - General Internal Medicine 12/01/20 03/22/22 Jose E Dye MD PCP - General Family Practice 03/23/22 Bharat Anand MD, PHD Surgeon Neurosurgery 04/13/22 Darinel Sun PA-C [address] [place] [address] Specialist Neurosurgery 04/13/22 documented as of this encounter
--- OUTSIDE RECORDS SUMMARY | 2024-07-06 14:35 | XMS_ITS | Encounter Summary ---
[facility] Organization [facility] Address [address] [place] [address] Care Team Providers Care Portable Sawmill Operator Name Role Phone Rosalino Jung MD Primary Care Provider Unava Mika Lay DO Primary Care Provider Rabai jude Baig Pcp Primary Care Provider Jose E Vogt MD Primary Care Provider Unav Bharat Myers MD, PHD Unavailable Unava ilable Darinel Sun PA-C Unavailable [phone] Encounter Details Date Type Department Care Team Description 11/08/2018 Pt. Non Urgent Medic al Question Medicine/Pediatrics - [address] [address] Rosalino Jung MD Social History Tobacco Use [...] I had just to go to the [facility] today for my prescreening. If rescheduling [...] on filedocumented in this encounter Care Teams Portable Sawmill Operator Relationship Specialty Start Date End Date Rosalino Jung MD PCP - General Internal Medicine 11/11/17 07/21/20 Mika Le DO PCP - General Internal Medicine 07/22/20 [facility] PCP - General Internal Medicine 12/01/20 03/22/22 Jose E Dye MD PCP - General Family Practice 03/23/22 Bharat Anand MD, PHD Surgeon Neurosurgery 04/13/22 Darinel Sun PA-C [address] [place] [address] Specialist Neurosurgery 04/13/22 documented as of this encounter
--- OUTSIDE RECORDS SUMMARY | 2024-07-06 14:35 | XMS_ITS | Encounter Summary ---
Author Organization [facility] Address [address] [place] [address] Care Team Providers Care Court Deputy Name Role Phone Valentin Gaviria MD Primary Care Provider Unavail able Viv Kauffman MD Primary Care Provider Unavaila Rosalino Kirby MD Primary Care Provider Unava ilable Mika Le DO Primary Care Provider Rabia vailable [facility], Pcp Primary Care Provider UnavailJose E Miller MD Primary Care Provider Unav Bharat Myers MD, PHD Unavailable Unava ilable Darinel Sun PA-C Unavailable [phone] Encounter Details Date Type Department Care Team Description 06/05/2014 Director Regulatory Agency Report Medical Records [address] [place] [address] Valentin Leonard Social History Tobacco Use Types [...] on filedocumented in this encounter Care Teams Court Deputy Relationship Specialty Start Date End Date Valentin Gaviria MD PCP - General 06/28/00 01/16/15 Viv Kauffman MD PCP - General Internal Medicine 01/17/15 11/10/17 Rosalino Jung MD PCP - General Internal Medicine 11/11/17 07/21/20 Mika Le DO PCP - General Internal Medicine 07/22/[address] [place] [address] PCP - General Internal Medicine 12/01/20 03/22/22 Jose E Dye MD PCP - General Family Practice 03/23/22 Bharat Anand MD, PHD Surgeon Neurosurgery 04/13/22 Darinel Sun PA-C [address] [place] [address] Specialist Neurosurgery 04/13/22 documented as of this encounter
--- OUTSIDE RECORDS SUMMARY | 2024-07-06 14:35 | XMS_ITS | Encounter Summary ---
Author Organization [facility] Address [address] [place] [address] Care Team Providers Care Dry Cleaning Machine Operator Name Role Phone Viv Kauffman MD Primary Care Provider UnavailRosalino Nava MD Primary Care Provider Unava Mika Lay DO Primary Care Provider [facility]ia [facility], Pcp Primary Care Provider UnavailJose E Miller MD Primary Care Provider Unav Bharat Myers MD, PHD Unavailable Unava Darinel Thomas PA-C Unavailable Encounter Details Date Type Department Care Team Description 07/08/2015 INFLATED BALL MOLDER/MassPat Report Medical Records [address] [place] [address] Abstract, Provider Social History Tobacco Use Types [...] filedocumented in this encounter Care Teams Dry Cleaning Machine Operator Relationship Specialty Start Date End [...] Surgeon Neurosurgery 04/13/22 Darinel Sun PA-C [address] [place] [address] Specialist Neurosurgery 04/13/22 documented as of this encounter
--- OUTSIDE RECORDS SUMMARY | 2024-07-06 14:35 | XMS_ITS | Encounter Summary ---
Author Organization [facility] Address [address] [place] [address] Care Team Providers Care Mental Health Orderly Name Role Phone Rosalino Jung MD Primary Care Provider Unava Mika Lay DO Primary Care Provider Rabia jude Baig Pcp Primary Care Provider Jose E Vogt MD Primary Care Provider Unav Bharat Myers MD, PHD Unavailable Unava ilDarinel Davis PA-C Unavailable [phone] Encounter Details Date Type Department Care Team Description 07/26/2019 Telephone Medicine/Pediatrics [address] [phone] Rosalino Jung MD Social History Tobacco Use [...] in this encounter Care Teams Mental Health Orderly Relationship Specialty Start Date End Date Rosalino Jung MD PCP - General Internal Medicine 11/11/17 07/21/20 Mika Le DO PCP - General Internal Medicine 07/22/20 [facility] [place] PCP - General Internal Medicine 12/01/20 03/22/22 Jose E Dye MD PCP - General Family Practice 03/23/22 Bharat Anand MD, PHD Surgeon Neurosurgery 04/13/22 Darinel Sun PA-C [address] [place] [address] Specialist Neurosurgery 04/13/22 documented as of this encounter
--- OUTSIDE RECORDS SUMMARY | 2024-07-06 14:35 | XMS_ITS | Encounter Summary ---
Author Organization [facility] Address [address] [place] [address] Care Team Providers Care Sheep Boner Name Role Phone Rosalino Jung MD Primary Care Provider Unava Mika Lay DO Primary Care Provider Rabia jude Baig [facility] Primary Care Provider UnavailJose E Miller MD Primary Care Provider Unav Bharat Myers MD, PHD Unavailable Unava ilable Darinel Sun PA-C Unavailable [phone] Encounter Details Date Type Department Care Team Description 06/24/2020 Pt. Non Urgent Medic al Question Adult Medicine [address] [address] Rosalino Jung MD Social History Tobacco Use [...] Miscellaneous Notes * Telephone Encounter - Kat Quevedo 06/24/2020 8:51 AM EDTFrom: Alejandro Caruso To: Rosalino Jung MD Sent: 06/24/2020 7:36 AM EDT Subject: New Adventure DR. Jung, I just wanted too say thanks for all you do, and did for me. They are very ramez to get you. I hopeit all works out well for you and your family on your new adventure. I ordered like 4 medication, if you can fill them thanks before to leave that would be great. documented in this encounter Plan of Treatment Not on file documented as of this encounter Visit Diagnoses Not on filedocumented in this encounter Care Teams Sheep Boner Relationship Specialty Start Date End Date Rosalino Jung MD PCP - General Internal Medicine 11/11/17 07/21/20 Mika Le DO PCP - General Internal Medicine 07/22/[address] [place] [address] PCP - General Internal Medicine 12/01/20 03/22/22 Jose E Dye MD PCP - General Family Practice 03/23/22 Bharat Anand MD, PHD Surgeon Neurosurgery 04/13/22 Darinel Sun PA-C [address] [place] [address] Specialist Neurosurgery 04/13/22 documented as of this encounter
--- OUTSIDE RECORDS SUMMARY | 2024-07-06 14:35 | XMS_ITS | Encounter Summary ---
Author Organization [facility] Address [address] [place] [address] Care Team Providers Care Wood Caulker Name Role Phone Rosalino Jung MD Primary Care Provider Unava Mika Lay DO Primary Care Provider Rabia jude Baig [facility] Primary Care Provider Jose E Vogt MD Primary Care Provider Unav Bharat Myers MD, PHD Unavailable Unava ilable Darinel Sun PA-C Unavailable [phone] Encounter Details Date Type Department Care Team Description 11/24/2018 [facility] Medical Records [address] [place] [address] Viv Kauffman MD Social History Tobacco Use [...] on filedocumented in this encounter Care Teams Wood Caulker Relationship Specialty Start Date End Date Rosalino Jung MD PCP - General Internal Medicine 11/11/17 07/21/20 Mika Le DO PCP - General Internal Medicine 07/22/20 [facility] [place] PCP - General Internal Medicine 12/01/20 03/22/22 Jose E Dye MD PCP - General Family Practice 03/23/22 Bharat Anand MD, PHD Surgeon Neurosurgery 04/13/22 Darinel Sun PA-C [address] [place] [address] Specialist Neurosurgery 04/13/22 documented as of this encounter
--- OUTSIDE RECORDS SUMMARY | 2024-07-06 14:35 | XMS_ITS | Encounter Summary ---
Author Organization [facility] Address [address] [place] [address] Care Team Providers Care Gutter Installer Name Role Phone Rosalino Jung MD Primary Care Provider Unava Mika Lay DO Primary Care Provider Rabia jude Baig [facility] Primary Care Provider Jose E Vogt MD Primary Care Provider Bharat Last MD, PHD Unavailable Unava Darinel Thomas PA-C Unavailable [phone] Encounter Details Date Type Department Care Team Description 02/08/2018 [facility] Controlled Substance Contract Medical Records [address] [place] [address] Abstract, Provider Social History Tobacco Use Types [...] on filedocumented in this encounter Care Teams Gutter Installer Relationship Specialty Start Date End Date Rosalino Jung MD PCP - General Internal Medicine 11/11/17 07/21/20 Mika Le DO PCP - General Internal Medicine 07/22/20 [facility] PCP - General Internal Medicine 12/01/20 03/22/22 Jose E Dye MD PCP - General Family Practice 03/23/22 Bharat Anand MD, PHD Surgeon Neurosurgery 04/13/22 Darinel Sun PA-C [address] [place] [address] Specialist Neurosurgery 04/13/22 documented as of this encounter
--- OUTSIDE RECORDS SUMMARY | 2024-07-06 14:35 | XMS_ITS | Encounter Summary ---
Author Organization [facility] Address [address] [place] [address] Care Team Providers Care French Binder Name Role Phone Viv Kauffman MD Primary Care Provider UnavailRosalino Nava MD Primary Care Provider Unava Mika Lay DO Primary Care Provider Rabia [facility], Pcp Primary Care Provider UnavailJose E Miller MD Primary Care Provider Unav Bharat Myers MD, PHD Unavailable Unava Darinel Thomas PA-C Unavailable [phone] Encounter Details Date Type Department Care Team Description 07/14/2016 Office Manager Executive Assistant Report Medical Records [address] [place] [address] Valentin Leonard Social History Tobacco Use Types [...] on filedocumented in this encounter Care Teams French Binder Relationship Specialty Start Date End Date Viv [...] Surgeon Neurosurgery 04/13/22 Darinel Sun PA-C [address] [place] [address] Specialist Neurosurgery 04/13/22 documented as of this encounter
--- OUTSIDE RECORDS SUMMARY | 2024-07-06 14:35 | XMS_ITS | Encounter Summary ---
Author Organization [facility] Address [address] [place] [address] Care Team Providers Care Air Hoist Operator Name Role Phone Rosalino Jung MD Primary Care Provider Unava Mika Lay DO Primary Care Provider Rabia jude Baig [facility] Primary Care Provider Jose E Vogt MD Primary Care Provider UnaBharat Gomes MD, PHD Unavailable Unava Darinel Thomas PA-C Unavailable [phone] Encounter Details Date Type Department Care Team Description 11/22/2018 [facility] Medical Records [address] [place] [address] Petr Ritter MD Social History Tobacco Use [...] on filedocumented in this encounter Care Teams Air Hoist Operator Relationship Specialty Start Date End Date Rosalino Jung MD PCP - General Internal Medicine 11/11/17 07/21/20 Mika Le DO PCP - General Internal Medicine 07/22/20 [facility] PCP - General Internal Medicine 12/01/20 03/22/22 Jose E Dye MD PCP - General Family Practice 03/23/22 Bharat Anand MD, PHD Surgeon Neurosurgery 04/13/22 Darinel Sun PA-C [address] [place] [address] Specialist Neurosurgery 04/13/22 documented as of this encounter
--- OUTSIDE RECORDS SUMMARY | 2024-07-06 14:35 | XMS_ITS | Encounter Summary ---
Author Organization [facility] Address [address] [place] [address] Care Team Providers Care Heliotherapist Name Role Phone Viv Kauffman MD Primary Care Provider UnavailRosalino Nava MD Primary Care Provider Unava Mika Lay DO Primary Care Provider [facility], Pcp Primary Care Provider UnavailJose E Miller MD Primary Care Provider Unav Bharat Myers MD, PHD Unavailable Unava Darinel Thomas PA-C Unavailable Encounter Details Date Type Department Care Team Description 07/03/2015 Utility Tractor Operator Report Medical Records [address] [place] [address] Valentin Leonard Social History Tobacco Use Types [...] on filedocumented in this encounter Care Teams Heliotherapist Relationship Specialty Start Date End Date Viv [...] Surgeon Neurosurgery 04/13/22 Darinel Sun PA-C [address] [place] [address] Specialist Neurosurgery 04/13/22 documented as of this encounter
--- OUTSIDE RECORDS SUMMARY | 2024-07-06 14:35 | XMS_ITS | Encounter Summary ---
Author Organization [facility] Address [address] [place] [address] Care Team Providers Care Logistics Tech Name Role Phone Rosalino Jung MD Primary Care Provider Unava Mika Lay DO Primary Care Provider Rabia jude Baig Pcp Primary Care Provider Jose E Vogt MD Primary Care Provider Unav Bharat Myers MD, PHD Unavailable Unava ilable Darinel Sun PA-C Unavailable [phone] Encounter Details Date Type Department Care Team Description 06/26/2018 Transfer Records Medical Records [address] [place] [address] Tera Gordon MD [address] [place] [address] Social History Tobacco Use Types Packs/Day Years [...] on filedocumented in this encounter Care Teams Logistics Tech Relationship Specialty Start Date End Date Rosalino Jung MD PCP - General Internal Medicine 11/11/17 07/21/20 Mika Le DO PCP - General Internal Medicine 07/22/20 [facility] [place] [facility] PCP - General Internal Medicine 12/01/20 03/22/22 Jose E Dye MD PCP - General Family Practice 03/23/22 Bharat Anand MD, PHD Surgeon Neurosurgery 04/13/22 Darinel Sun PA-C [address] [place] [address] Specialist Neurosurgery 04/13/22 documented as of this encounter
--- OUTSIDE RECORDS SUMMARY | 2024-07-06 14:35 | XMS_ITS | Encounter Summary ---
Author Organization [facility] Address [address] [place] [address] Care Team Providers Care Customer Experience Analyst Name Role Phone Valentin Gaviria MD Primary Care Provider Unavail able Viv Kauffman MD Primary Care Provider Unavaila Rosalino Kirby MD Primary Care Provider Unava ilable Mika Le DO Primary Care Provider Rabia vailable [facility], Pcp Primary Care Provider UnavailJose E Miller MD Primary Care Provider Unav Bharat Myers MD, PHD Unavailable Unava ilable Darinel Sun PA-C Unavailable [phone] Encounter Details Date Type Department Care Team Description 01/10/2013 Controlled Substance Plan Medical Records [address] [place] [address] Abstract, Provider Social History Tobacco Use Types [...] filedocumented in this encounter Care Teams Customer Experience Analyst Relationship Specialty Start Date End Date [...] Surgeon Neurosurgery 04/13/22 Darinel Sun PA-C [address] [place] [address] Specialist Neurosurgery 04/13/22 documented as of this encounter
--- OUTSIDE RECORDS SUMMARY | 2024-07-06 14:35 | XMS_ITS | Encounter Summary ---
Author Organization [facility] Address [address] [place] [address] Care Team Providers Care Can Reconditioner Name Role Phone Mika Le DO Primary [facility] Primary Care Provider UnavailJose E Miller MD Primary Care Provider Unav ailBharat Seals MD, PHD Unavailable Unava ilDarinel Davis PA-C Unavailable [phone] Encounter Details Date Type Department Care Team Description 08/20/2020 Pt. Non Urgent Medic al Question Adult Medicine [address] [address] Mika Le DO Social History Tobacco Use [...] on filedocumented in this encounter Care Teams Can Reconditioner Relationship Specialty Start Date End Date Mika Le DO PCP - General Internal Medicine 07/22/[address] [place] [address] PCP - General Internal Medicine 12/01/20 03/22/22 Jose E Dye MD PCP - General Family Practice 03/23/22 Bharat Anand MD, PHD Surgeon Neurosurgery 04/13/22 Darinel Sun PA-C [address] [facility] [address] [place] [address] Specialist Neurosurgery 04/13/22 documented as of this encounter
--- OUTSIDE RECORDS SUMMARY | 2024-07-06 14:35 | XMS_ITS | Encounter Summary ---
Author Organization [facility] Address [address] [place] [address] Care Team Providers Care Space Sciences Director Name Role Phone Rosalino Jung MD Primary Care Provider Unava Mika Lay DO Primary Care Provider Rabia jude [facility] Primary Care Provider Jose E Vogt MD Primary Care Provider Unav Bharat Myers MD, PHD Unavailable Unava ilable Darinel Sun PA-C Unavailable [phone] Encounter Details Date Type Department Care Team Description 11/06/2019 Air Traffic Control Operator Report Medical Records [address] [place] [address] Lovely Ngo Social History Tobacco Use Types [...] on filedocumented in this encounter Care Teams Space Sciences Director Relationship Specialty Start Date End Date Rosalino Jung MD PCP - General Internal Medicine 11/11/17 07/21/20 Mika Le DO PCP - General Internal Medicine 07/22/20 [facility] PCP - General Internal Medicine 12/01/20 03/22/22 Jose E Dye MD PCP - General Family Practice 03/23/22 Bharat Anand MD, PHD Surgeon Neurosurgery 04/13/22 Darinel Sun PA-C [address] [place] [address] Specialist Neurosurgery 04/13/22 documented as of this encounter
--- OUTSIDE RECORDS SUMMARY | 2024-07-06 14:36 | XMS_ITS | Encounter Summary ---
Author Organization [facility] Address [address] [place] [address] Care Team Providers Care Anatomy And Physiology Instructor Name Role Phone Rosalino Jung MD Primary Care Provider Unava Mika Lay DO Primary Care Provider Rabia jude [facility] Primary Care Provider Jose E Vogt MD Primary Care Provider UnaBharat Gomes MD, PHD Unavailable Unava Darinel Thomas PA-C Unavailable [phone] Encounter Details Date Type Department Care Team Description 08/28/2019 Unhairer Report Medical Records [address] [place] [address] Mika Duque Social History Tobacco Use Types [...] on filedocumented in this encounter Care Teams Anatomy And Physiology Instructor Relationship Specialty Start Date End Date Rosalino Jung MD PCP - General Internal Medicine 11/11/17 07/21/20 Mika Le DO PCP - General Internal Medicine 07/22/20 [facility] PCP - General Internal Medicine 12/01/20 03/22/22 Jose E Dye MD PCP - General Family Practice 03/23/22 Bharat Anand MD, PHD Surgeon Neurosurgery 04/13/22 Darinel Sun PA-C [address] [place] [address] Specialist Neurosurgery 04/13/22 documented as of this encounter
--- OUTSIDE RECORDS SUMMARY | 2024-07-06 14:36 | XMS_ITS | Encounter Summary ---
Author Organization [facility] Address [address] [place] [address] Care Team Providers Care Clay Processing Labourer Name Role Phone Viv Kauffman MD Primary Care Provider UnavailRosalino Nava MD Primary Care Provider Unava ilMika Maya DO Primary Care Provider Rabia [facility], Pcp Primary Care Provider UnavailJose E Miller MD Primary Care Provider Unav Bharat Myers MD, PHD Unavailable Unava ilDarinel Davis PA-C Unavailable [phone] Encounter Details Date Type Department Care Team Description 12/03/2015 Pickle Solution Maker Report Medical Records [address] [place] [phone] [place] [address] [place] [address] [id number] Social History Tobacco Use Types Packs/Day Years [...] on filedocumented in this encounter Care Teams Clay Processing Labourer Relationship Specialty Start Date End Date Viv Kauffman MD PCP - General Internal Medicine 01/17/15 11/10/17 Rosalino Jung MD PCP - General Internal Medicine 11/11/17 07/21/20 Mika Le DO PCP - General Internal Medicine 07/22/[address] [place] [address] PCP - General Internal Medicine 12/01/20 03/22/22 Jose E Dye MD PCP - General Family Practice 03/23/22 Bharat Anand MD, PHD Surgeon Neurosurgery 04/13/22 Darinel Sun PA-C [address] [place] [address] Specialist Neurosurgery 04/13/22 documented as of this encounter
--- OUTSIDE RECORDS SUMMARY | 2024-07-06 14:36 | XMS_ITS | Encounter Summary ---
Author Organization [facility] Address [address] [place] [address] Care Team Providers Care Social Media Marketing Analyst Name Role Phone Valentin Gaviria MD Primary Care Provider Unavail able Viv Kauffman MD Primary Care Provider Unavaila Rosalino Kirby MD Primary Care Provider Unava ilable Mika Le DO Primary Care Provider Rabia vailable [facility] [place] [facility], Pcp Primary Care Provider UnavailJose E Miller MD Primary Care Provider Unav Bharat Myers MD, PHD Unavailable Unava ilable Darinel Sun PA-C Unavailable [phone] Encounter Details Date Type Department Care Team Description 01/21/2014 Diabetes Education Coordinator Report Medical Records [address] [place] [address] Mika Booth MD Social History Tobacco Use [...] on filedocumented in this encounter Care Teams Social Media Marketing Analyst Relationship Specialty Start Date End Date Vlaentin Gaviria MD PCP - General 06/28/00 01/16/15 Viv Kauffman MD PCP - General Internal Medicine 01/17/15 11/10/17 Rosalino Jung MD PCP - General Internal Medicine 11/11/17 07/21/20 Mika Le DO PCP - General Internal Medicine 07/22/20 [facility] PCP - General Internal Medicine 12/01/20 03/22/22 Jose E Dye MD PCP - General Family Practice 03/23/22 Bharat Anand MD, PHD Surgeon Neurosurgery 04/13/22 Darinel Sun PA-C [address] [place] [address] Specialist Neurosurgery 04/13/22 documented as of this encounter
--- OUTSIDE RECORDS SUMMARY | 2024-07-06 14:36 | XMS_ITS | Encounter Summary ---
Author Organization [facility] Address [address] [place] [address] Care Team Providers Care Dope Sprayer Name Role Phone Rosalino Jung MD Primary Care Provider Unava Mika Lay DO Primary Care Provider Rabia jude Baig Pcp Primary Care Provider Jose E Vogt MD Primary Care Provider Unav Bharat Myers MD, PHD Unavailable Unava ilable Darinel Sun PA-C Unavailable [phone] Encounter Details Date Type Department Care Team Description 06/21/2018 Pt. Non Urgent Medic al Question Medicine/Pediatrics - [address] [phone] Rosalino Jung MD Social History Tobacco Use [...] a refill they won't fill it until [id number] day and you only give me a [...] on filedocumented in this encounter Care Teams Dope Sprayer Relationship Specialty Start Date End Date Rosalino Jung MD PCP - General Internal Medicine 11/11/17 07/21/20 Mika Le DO PCP - General Internal Medicine 07/22/[address] [place] [address] PCP - General Internal Medicine 12/01/20 03/22/22 Jose E Dye MD PCP - General Family Practice 03/23/22 Bharat Anand MD, PHD Surgeon Neurosurgery 04/13/22 Darinel Sun PA-C [address] [place] [address] [place] [address] Specialist Neurosurgery 04/13/22 documented as of this encounter
--- OUTSIDE RECORDS SUMMARY | 2024-07-06 14:36 | XMS_ITS | Encounter Summary ---
Author Organization [facility] Address [address] [place] [address] Care Team Providers Care Armature Connector Name Role Phone Rosalino Jung MD Primary Care Provider Unava Mika Lay DO Primary Care Provider Rabia jude Baig Pcp Primary Care Provider Jose E Vogt MD Primary Care Provider Unav Bharat Myers MD, PHD Unavailable Unava ilable Darinel Sun PA-C Unavailable [phone] Encounter Details Date Type Department Care Team Description 06/03/2018 Pt. Non Urgent Medic al Question Medicine/Pediatrics - [address] [id number] Rosalino Jung MD Social History Tobacco Use [...] Progress Notes * Chioma Nuñez L.P.N. - 06/05/2018 9:24 AM EDTFrom: Alejandro Belleture To: Rosalino Jung MD Sent: 06/03/2018 12:48 PM EDT Subject: 2nd Opinon Knee Pain DR. Jung, I was seen by DR. Barry Zhang at [facility] and they took x-rays and he just felt around my knee and ordered a MRI on both knees, I was supposed to get them both the same day but the pain was so badI had to reschedule the left knee for 05-27-18 and I had a follow up with his PA, DR. Valentin Riggs on06-01-18 to go over the MRI'S with him and he told me that my knees are bad but not bad enough to get a knee replacement I explained to him how much pain I'm in but it seems no matter who I talk to I get the impression that nobody believes me. He gave me a cortisone shot in both knees and the pain is already back to a 10+. Also the 10 mg Oxycodone is only working for 2.5-3 hours at best. I don't know what the next steps would be if there are any next steps but I can't keep living with my pain level like it is. Could you please let me know your thoughts on what I should try next? I'm not sure if there is an arthritis doctor that could give me something for the pain. I am pretty sure I know the answer but I have to ask the question if you would increase my Oxycodone to 20mg 6 times daily. Thanks for your time, Alejandro documented in this encounter Plan of Treatment Not on file documented as of this encounter Visit Diagnoses Not on filedocumented in this encounter Care Teams Armature Connector Relationship Specialty Start Date End Date Rosalino Jung MD PCP - General Internal Medicine 11/11/17 07/21/20 Mika Le DO PCP - General Internal Medicine 07/22/[address] [place] [address] Pcp PCP - General Internal Medicine 12/01/20 03/22/22 Jose E Dye MD PCP - General Family Practice 03/23/22 Bharat Anand MD, PHD Surgeon Neurosurgery 04/13/22 Darinel Sun PA-C [address] [place] [address] Specialist Neurosurgery 04/13/22 documented as of this encounter
--- OUTSIDE RECORDS SUMMARY | 2024-07-06 14:36 | XMS_ITS | Encounter Summary ---
Author Organization [facility] Address [address] [place] [address] Care Team Providers Care Tetryl Dissolver Operator Name Role Phone Rosalino Jung MD Primary Care Provider Unava Mika Lay DO Primary Care Provider Rabia jude Baig Pcp Primary Care Provider Jose E Vogt MD Primary Care Provider Unav Bharat Myers MD, PHD Unavailable Unava ilable Darinel Sun PA-C Unavailable [phone] Encounter Details Date Type Department Care Team Description 08/02/2019 Pt. Non Urgent Medic al Question Adult Medicine [address] [address] Rosalino Jung MD Social History Tobacco Use [...] wont be able to make it too [place] today, I will go first thing in the morning. Thanks Alejandro documented in this encounter Plan of Treatment Not on file documented as of this encounter Visit Diagnoses Not on filedocumented in this encounter Care Teams Tetryl Dissolver Operator Relationship Specialty Start Date End Date Rosalino Jung MD PCP - General Internal Medicine 11/11/17 07/21/20 Mika Le DO PCP - General Internal Medicine 07/22/[address] [place] [address] PCP - General Internal Medicine 12/01/20 03/22/22 Jose E Dye MD PCP - General Family Practice 03/23/22 Bharat Anand MD, PHD Surgeon Neurosurgery 04/13/22 Darinel Sun PA-C [address] [place] [id number] Specialist Neurosurgery 04/13/22 documented as of this encounter
--- OUTSIDE RECORDS SUMMARY | 2024-07-06 14:36 | XMS_ITS | Encounter Summary ---
Author Organization [facility] Address [address] [place] [address] Care Team Providers Care Operations And Intelligence Assistant Name Role Phone Rosalino Jung MD Primary Care Provider Unava Mika Lay DO Primary Care Provider Rabia jude Baig Pcp Primary Care Provider oJse E Vogt MD Primary Care Provider Unav Bharat Myers MD, PHD Unavailable Unava ilable Darinel Sun PA-C Unavailable [phone] Encounter Details Date Type Department Care Team Description 07/31/2019 Pt. Non Urgent Medic al Question Adult Medicine [address] [address] Rosalino Jung MD Social History Tobacco Use [...] 07/31/2019 1:25 PM EDT Subject: X-RAYS IN [place] Dr. Jung, I wrote to you yesterday asking if I could go to [place] and the answer was yes. documented in this encounter Plan of Treatment Not on file documented as of this encounter Visit Diagnoses Not on filedocumented in this encounter Care Teams Operations And Intelligence Assistant Relationship Specialty Start Date End Date Rosalino Jung MD PCP - General Internal Medicine 11/11/17 07/21/20 Mika Le DO PCP - General Internal Medicine 07/22/20 [facility] PCP - General Internal Medicine 12/01/20 03/22/22 Jose E Dye MD PCP - General Family Practice 03/23/22 Bharat Anand MD, PHD Surgeon Neurosurgery 04/13/22 Darinel Sun PA-C [address] [place] [address] Specialist Neurosurgery 04/13/22 documented as of this encounter
--- OUTSIDE RECORDS SUMMARY | 2024-07-06 14:36 | XMS_ITS | Encounter Summary ---
Author Organization [facility] Address [address] [place] [address] Care Team Providers Care Horseback Excavator Name Role Phone Rosalino Jung MD Primary Care Provider Unava Mika Lay DO Primary Care Provider Rabia jude Baig [facility] Primary Care Provider Jose E Vgot MD Primary Care Provider Unav Bharat Myers MD, PHD Unavailable Unava Darinel Thomas PA-C Unavailable [phone] Encounter Details Date Type Department Care Team Description 05/18/2018 Vocational Placement Specialist Report Medical Records [address] [place] [id number] Barry Zhang Social History Tobacco Use Types [...] on filedocumented in this encounter Care Teams Horseback Excavator Relationship Specialty Start Date End Date Rosalino Jung MD PCP - General Internal Medicine 11/11/17 07/21/20 Mika Le DO PCP - General Internal Medicine 07/22/20 [facility] PCP - General Internal Medicine 12/01/20 03/22/22 Jose E Dye MD PCP - General Family Practice 03/23/22 Bharat Anand MD, PHD Surgeon Neurosurgery 04/13/22 Darinel Sun PA-C [address] [place] [address] Specialist Neurosurgery 04/13/22 documented as of this encounter
--- OUTSIDE RECORDS SUMMARY | 2024-07-06 14:36 | XMS_ITS | Encounter Summary ---
Author [facility] Address [address] [place] [address] Care Team Providers Care Crossband Layer Name Role Phone Viv Kauffman MD Primary Care Provider UnavailRosalino Nava MD Primary Care Provider Unava Mika Lay DO Primary Care Provider [facility], Pcp Primary Care Provider UnavailJose E Miller MD Primary Care Provider Unav Bharat Myers MD, PHD Unavailable Unava Darinel Thomas PA-C Unavailable [phone] Encounter Details Date Type Department Care Team Description 03/10/2016 Condenser Setter Report Medical Records [address] [place] [id number] Valentin Leonard Social History Tobacco Use Types [...] on filedocumented in this encounter Care Teams Crossband Layer Relationship Specialty Start Date End Date Viv Kauffman MD PCP - General Internal Medicine 01/17/15 11/10/17 Rosalino Jnug MD PCP - General Internal Medicine 11/11/17 07/21/20 Mika Le DO PCP - General Internal Medicine 07/22/20 [facility] [place] - General Internal Medicine 12/01/20 03/22/22 Jose E Dye MD PCP - General Family Practice 03/23/22 Bharat Anand MD, PHD Surgeon Neurosurgery 04/13/22 Darinel Sun PA-C [address] [place] [address] Specialist Neurosurgery 04/13/22 documented as of this encounter
== END 2024-07-06 17:05 | disposition home or self-care (01) ==
LOC: HO.HMCFM 14:14
PROVIDERS: PCP Family Medicine; Visit Provider Family Medicine
DX: M54.16 Radiculopathy, lumbar region (principal); Z12.11 Encounter for screening for malignant neoplasm of colon; R60.0 Localized edema

== ENCOUNTER → 2024-07-06 14:13 | Outpatient (BNVA) | payer MEDICARE, SELFPAY | PROVIDERS: PCP Family Medicine; Visit Provider Family Medicine | DX: M54.16 Radiculopathy, lumbar region (principal); R60.0 Localized edema | CPT/HCPCS: 99212 ==

== ENCOUNTER 2024-09-07 08:33 | Outpatient (AMB) | payer MEDICARE, SELFPAY ==
--- NOTE | 2024-09-07 08:47 | MHC.PC.OV ---
Vital Signs 09/07/24 08:49 Height 5 ft 10 in Weight 189 lb 2 oz BMI 27.1 BP 130/60 Blood Pressure Location Rt brachial Position Sitting Respiration 14 Pulse 62 Pulse Source Pulse Oximeter Temp 97.5 F Temp Source Oral Pulse Oximetry (%) 98 Oxygen Delivery Method Room Air Intake Visit Reasons: f/u chronic pain, chronic conditions Intake Note: patient is scheduled to follow up for pain mangt pt also states his fingers always feel frozen and turn white. Milk Drying Machine Operator Required: No Allergies Seasonal Allergies Allergy (Severe, Verified 09/07/24 08:48) Sneezing Medication List - Last Reconciled 09/07/24 by Jose E Dye MD buprenorphine 20 mcg/hour 1 patch transdermal QWEEK 28 days clonazepam 1 mg PO Q8H 30 days losartan 50 mg PO QAM 90 days meloxicam 15 mg PO DAILY 30 days omeprazole 20 mg PO DAILY oxycodone 5 mg PO DAILY PRN 30 days pramipexole 0.25 mg PO BEDTIME 90 days Tobacco use date assessed: 07/26/23 Dental Screening Dental Screen Date: 04/26/23 HPI f/u chronic pain, chronic conditions HPI Details 54 y/o male presents to f/u chronic pain. LE pain primarily due to lumbar radiculopathy. Had referred him to vascular surgery due some edema and pain but after thorough workup, vascular ruled out significant venous insufficiency or peripheral arterial disease. MRI showed significant foraminal stenosis primarily on the left at L5-S1 consistent with his left-sided symptoms. Patient had surgery with [facility] neuro spine February 01. Unfortunately, he has not improved significantly from this procedure. Pt is on meloxicam, oxycodone, buprenorphine. He had been on gabapentin but pt notes this did not do anything. Pt reports arm discomfort, finger discomfort. He describes his fingers turning white which he states started summer of this year. [facility] Medical History Chronic pain syndrome Disc degeneration, lumbar Mild anemia Osteoarthritis GERD (gastroesophageal reflux disease) Depression with anxiety Claustrophobia HTN (hypertension) Arthritis Surgical History History of esophagogastroduodenoscopy (EGD) Hx of colonoscopy History of hip replacement H/O knee surgery History of spinal fusion Family History Father No problems noted. Mother No problems noted. Social History Household Members: Family Housing: House Are you a primary zoo caretaker to a significant other at home: No Do you presently have visiting nurse or other home services: No Alcohol intake: never Patient Tobacco Use Status: Former Tobacco user Tobacco use type: Cigarette Cigarette Packs Per Day: 1 Cigarettes Per Day: 5 Years Smoked: 30 e-Cigarette/Vaping Use: Never Used Second Hand Smoke Exposure: No Substance Use Type: Marijuana service: No Current occupational status: disabled Current occupation: rt hand Current occupational exposures/hazards: No Cognitive needs: No Hearing needs: No Vision needs: No Questionnaire Thrive Questionnaire Date Thrive assessed: 05/02/24 I am a: Parent/Caregiver What is your living situation today?: I have a place to live, but I am worried about losing it in the future Within the past 12 months, did the food you bought not last and you didn't have the money to get more?: Sometimes True Within the past 12 months, did you worry whether your food would run out before you got money to buy more?: Sometimes True Do you have trouble paying for medicines?: Yes Do you have trouble getting transportation to medical appointments?: No Do you have trouble paying your heating and electricity bill?: Yes Do you have trouble taking care of your child, family member or friend?: No Do you have trouble with day-to-day activities such as bathing, preparing meals, shopping, managing finances, etc.?: Yes Are you currently unemployed and looking for a job?: I choose not to answer this question Are you interested in more education?: No Currently or been in a relationship where the following occur: No concerns reported THRIVE Score: 4 GISSEL-7 AMB Questionnaire GISSEL-7 Date GISSEL - 7 assessed: 04/26/23 Source: Developed by Drs. Mika Nguyen, Valorie Chen, Ramírez House and colleagues, with an educational jonas from [employer]. Review of Systems Const Denies chills, Denies fatigue, Denies fever(s), Denies headache(s) and Denies weakness ENT Denies dizziness and Denies headache(s) Card Denies dyspnea Resp Denies cough, Denies dyspnea, Denies wheezing and Denies other (shortness of breath) Musc Denies numbness and Denies tingling Neuro Denies dizziness, Denies headache(s), Denies numbness, Denies tingling and Denies weakness Psych Denies anxiety and Denies depression Endo Denies fatigue Aller/Immun Denies wheezing Physical exam (Primary Care) Vital Signs: Last Vital Signs Temp 97.5 F 09/07/24 08:49 Pulse 62 09/07/24 08:49 Resp 14 09/07/24 08:49 BP 130/60 09/07/24 08:49 Pulse Ox 98 09/07/24 08:49 Oxygen Delivery Method Room Air 09/07/24 08:49 BMI result Body Mass Index 27.1 Tobacco/Smoking Status: Tobacco use Status Tobacco use date assessed 07/26/23 09/07/24 08:52 Patient Tobacco Use Status Former Tobacco user 09/07/24 08:52 Tobacco use type Cigarette 09/07/24 08:52 e-Cigarette/Vaping Use Never Used 09/07/24 08:52 Thrive Assessment: Date of Thrive Assessment Date Thrive assessed 05/02/24 09/07/24 08:52 Currently or been in a relationship where the following occur: No concerns reported Const General: well developed; No acute distress Nutritional Appearance: well nourished Orientation/consciousness: patient oriented x3 [facility] Head: Yes normocephalic and Yes atraumatic Eyes General: appearance normal, both eyes and all related structures Pupils: Equal, round and reactive pupils present EOM: EOMs intact bilaterally Resp Effort & Inspection: normal respiratory effort Neuro General: patient oriented x3 and gait normal Cranial nerves: Yes Equal, round and reactive pupils present Psych Affect: normal affect Coding Level of Care Code Est Pt Level 4 (06484) Diagnoses Radiculopathy, lumbar region M54.16 Chronic pain syndrome G89.4 Raynaud phenomenon I73.00 Assessment & Plan Assessment & Plan (1) Radiculopathy, lumbar region: Code(s): M54.16 - Radiculopathy, lumbar region Category: Medical Plan: Lower?extremity?pain primarily?due?to?lumbar?radiculopathy Had?referred?him?to?vascular?surgery?due?some?edema and?pain?but?after?thorough?workup,?vascular?ruled?out?significant?venous?insufficiency?or?peripheral?arterial?disease. MRI?showed?significant?foraminal?stenosis?primarily?on?the?left?at?L5-S1?consistent?with?his?left-sided?symptoms. Patient?had?surgery?with?[facility]?Neuro-spine?. Unfortunately,?he?has?not improved?significantly?from?this?procedure. He?continues?buprenorphine?20?mcg?patch?and?meloxicam. He?has?been?consistent?and?appropriate?with?these Had added oxycodone?5?mg?daily?for?breakthrough?pain at last visit. This is helping but pt requests more at bedtime. Try?gabapentin?at?bedtime?and?continue?oxycodone?5?mg?daily?for?breakthrough?pain?as?previously?prescribed. Had?tried?to?refer?him?to?neurosurgery?at?[facility] [place]?for?2nd?opinion?but?they?do?not?take?his?insurance. Referred?to??[facility]. (2) Chronic pain syndrome: Code(s): G89.4 - Chronic pain syndrome Category: Medical Plan: As?above (3) Raynaud phenomenon: Code(s): I73.00 - Raynaud's syndrome without gangrene Category: Medical Plan Good?pulses?bilaterally Came?hands?and?feet?warm Medications: New gabapentin 300 mg PO BEDTIME 90 caps 2RF 90 days
[2024-09-07 08:49] VITALS: BP 130/60; PULSE 62; RESP 14; TEMP 36.4; O2SAT 98; BMI 27.1
== END 2024-09-07 09:20 | disposition home or self-care (01) ==
LOC: HO.HMCFM 08:34
PROVIDERS: PCP Family Medicine; Visit Provider Family Medicine
DX: M54.16 Radiculopathy, lumbar region (principal); G89.4 Chronic pain syndrome; I73.00 Raynaud's syndrome without gangrene

== ENCOUNTER → 2024-09-07 08:33 | Outpatient (BNVA) | payer MEDICARE, SELFPAY | PROVIDERS: PCP Family Medicine; Visit Provider Family Medicine | DX: M54.16 Radiculopathy, lumbar region (principal); G89.4 Chronic pain syndrome; I73.00 Raynaud's syndrome without gangrene; Z79.891 Long term (current) use of opiate analgesic; Z79.899 Other long term (current) drug therapy | CPT/HCPCS: 99212 ==

== ENCOUNTER 2025-02-06 14:13 | Outpatient (AMB) | payer MEDICARE, SELFPAY ==
--- OUTSIDE RECORDS SUMMARY | 2022-01-30 14:40 | XMS_ITS | Encounter Summary ---
Author Organization [facility] Address [address] [place] [phone] Phone Care Team Providers Care Private Duty Aide Name Role Phone Jose E Dye MD Primary Care Provider Encounter Details Date Type Department Care Team (Late st Contact Info) Description 01/30/2022 2:40 PM EST Hospital Encounter [facility] [address] [place] [phone] Gisela Redd FNP [address] [place] [address] [email or web address] Social History Tobacco Use Types Packs/Day Years [...] the right lateral 10th rib. Gisela Redd CONCRETE VAULT MAKER IMG XR CHEST Final Resul t documented in this encounter Visit Diagnoses Not on filedocumented in this encounter Care Teams Private Duty Aide Relationship Specialty Start Date End Date Jose E Dye MD PCP - General Family Medicine 01/30/22 09/28/23 documented as of this encounter Additional Source Comments The information contained in this document represents components of the legal health record. It is not the complete legal health record.[facility]
--- OUTSIDE RECORDS SUMMARY | 2022-10-27 07:25 | XMS_ITS | Encounter Summary ---
Author Organization [facility] Address [address] [place] [phone] Phone Care Team Providers Care Certified Legal Investigator Name Role Phone Jose E Dye MD Primary Care Provider Encounter Details Date Type Department Care Team (Late st Contact Info) Description 10/27/2022 8:25 AM EDT Hospital Encounter [facility] [address] [place] [phone] Kat Gay CNP [address] [place] [phone] [email or web address] Social History Tobacco Use Types Packs/Day Years [...] Name Priority Date/Time Associated Diagnosis Comments XR WRIST 3 OR MORE VIEWS (LEFT) Urgent/patient waiting 10/27/2022 8:32 AM EDT Puncture wound of left wrist, initial encounter documented in this encounter Results * XR WRIST 3 OR MORE VIEWS (LEFT) (10/27/2022 8:32 AM EDT) Anatomical Region Laterality Modality Wrist Left Computed Radiogr aphy 10/27/2022 8:37 AM EDT Impressions 10/27/2022 8:39 AM EDT Normal alignment. Scattered degenerative changes of the carpals most pronounced along the first CMC; lucency seen along the ulnar aspect of the trapezium on oblique views may be related to degenerative change or suggest a nondisplaced fracture. Correlation with point tenderness. Narrative 10/27/2022 8:39 AM EDT XR WRIST 3 OR MORE VIEWS (LEFT) COMPARISON: None. Procedure Note Analisa Joy MD - 10/27/2022 XR WRIST 3 OR MORE VIEWS (LEFT) COMPARISON: None. IMPRESSION: Normal alignment. Scattered degenerative changes of the carpals mostpronounced along the first CMC; lucency seen along the ulnar aspect of thetrapezium on oblique views may be related to degenerative change orsuggest a nondisplaced fracture. Correlation with point tenderness. us Kat Gay SEWER BUILDER IMG XR UPPER EXTREMITY Terrie l Result documented in this encounter Visit Diagnoses Not on filedocumented in this encounter Care Teams Certified Legal Investigator Relationship Specialty Start Date End Date Jose E Dye MD PCP - General Family Medicine 01/30/22 09/28/23 documented as of this encounter Additional Source Comments The information contained in this document represents components of the legal health record. It is not the complete legal health record.[facility]
--- OUTSIDE RECORDS SUMMARY | 2022-12-09 12:45 | XMS_ITS | Encounter Summary ---
Author Organization [facility] Address [address] [place] [phone] Phone Care Team Providers Care Cardiology Specialist Name Role Phone Jose E Dye MD Primary Care Provider Encounter Details Date Type Department Care Team (Late st Contact Info) Description 12/09/2022 1:45 PM EDT Hospital Encounter [facility] [address] [place] [address] Manasa Middleton PA-C, MS [address] [place] [address] Social History Tobacco Use Types Packs/Day Years [...] Name Priority Date/Time Associated Diagnosis Comments XR KNEE 4 OR MORE VIEWS (RIGHT) Urgent/patient waiting 12/09/2022 1:50 PM EDT Injury of right knee, initial encounter documented in this encounter Results * XR KNEE 4 OR MORE VIEWS (RIGHT) (12/09/2022 1:50 PM EDT) Anatomical Region Laterality Modality Knee Right Computed Radiogr aphy 12/09/2022 1:56 PM EDT Impressions 12/09/2022 1:57 PM EDT No fracture or dislocation. Small knee joint effusion. Narrative 12/09/2022 1:57 PM EDT XR KNEE 4 OR MORE VIEWS (RIGHT) COMPARISON: None FINDINGS: Right Knee: No fracture. Normal alignment. Mild tricompartmental degenerative changes. Small effusion. Procedure Note Barry Husain MD - 12/09/2022 XR KNEE 4 OR MORE VIEWS (RIGHT) COMPARISON: None FINDINGS: Right Knee: No fracture. Normal alignment. Mild tricompartmentaldegenerative changes. Small effusion. IMPRESSION: No fracture or dislocation. Small knee joint effusion. Manasa Middleton PA-C, MS IMG XR LOWER EXTRE MITY Final Result documented in this encounter Visit Diagnoses Not on filedocumented in this encounter Care Teams Cardiology Specialist Relationship Specialty Start Date End Date Jose E Dye MD PCP - General Family Medicine 01/30/22 09/28/23 documented as of this encounter Additional Source Comments The information contained in this document represents components of the legal health record. It is not the complete legal health record.[facility]
--- OUTSIDE RECORDS SUMMARY | 2024-01-27 08:31 | XMS_ITS | Encounter Summary ---
Author Organization [facility] Address [address] [place] [phone] Phone Care Team Providers Care Pantograph Machine Operator Name Role Phone Jose E Dye MD Primary Care Provider Encounter Details Date Type Department Care Team (Late st Contact Info) Description 01/27/2024 8:31 AM EST Hospital Encounter [facility] [address] [place] [phone] Gisela Redd FNP [address] [place] [address] [email or web address] Social History Tobacco Use Types Packs/Day Years [...] Name Priority Date/Time Associated Diagnosis Comments XR FINGER 2 OR MORE VIEWS (RIGHT) Urgent/patient waiting 01/27/2024 8:36 AM EST Paronychia of right thumb documented in this encounter Results * XR FINGER 2 OR MORE VIEWS (RIGHT) (01/27/2024 8:36 AM EST) Anatomical Region Laterality Modality Hand Right Computed Radiogr aphy 01/27/2024 8:43 AM EST Impressions 01/27/2024 8:52 AM EST No fracture or dislocation. Soft tissue swelling of the thumb. ATTESTATION: Yamile Felipe as teaching physician, have reviewed the images for this case and if necessary edited the report originally created by Will Aden. Narrative 01/27/2024 8:52 AM EST XR FINGER 2 OR MORE VIEWS (RIGHT) Referring clinician's provided indication for this examination in Epic: Pain; pain, erythema, subungual hematoma, no known injury COMPARISON: None FINDINGS: No fracture. Normal alignment. Normal joint spaces. Mild soft tissue swelling of the distal thumb. Procedure Note Yamile Cooper MD, PhD - 01/27/2024 XR FINGER 2 OR MORE VIEWS (RIGHT) Referring clinician's provided indication for this examination in Epic:Pain; pain, erythema, subungual hematoma, no known injury COMPARISON: None FINDINGS: No fracture. Normal alignment. Normal joint spaces. Mild soft tissueswelling of the distal thumb. IMPRESSION: No fracture or dislocation. Soft tissue swelling of the thumb. ATTESTATION: Yamile Felipe as teaching physician, have reviewedthe images for this case and if necessary edited the report originallycreated by Will Aden. Gisela Redd EDUCATIONAL GUIDANCE COUNSELOR IMG XR UPPER EXTREMITY Terrie l Result documented in this encounter Visit Diagnoses Not on filedocumented in this encounter Care Teams Pantograph Machine Operator Relationship Specialty Start Date End Date Jose E Dye MD PCP - General Family Medicine 01/27/24 documented as of this encounter Additional Source Comments The information contained in this document represents components of the legal health record. It is not the complete legal health record.[facility]
--- NOTE | 2025-02-06 14:28 | A.OFFPC_ITS ---
Vital Signs 02/06/25 14:35 Height 5 ft 10 in Weight 195 lb 8 oz BMI 28.0 BP 134/60 Blood Pressure Location Rt brachial Position Sitting Respiration 14 Pulse 80 Pulse Source Pulse Oximeter Temp 98.1 F Temp Source Oral Pulse Oximetry (%) 97 Oxygen Delivery Method Room Air Intake Visit Reasons: f/u chronic pain rescheduled Intake Note: patient is scheduled to review chronic pain ith pcp Gis Specialist Required: No Allergies Seasonal Allergies Allergy (Severe, Verified 02/06/25 14:33) Sneezing Medication List - Last Reconciled 02/06/25 by Jose E Dye MD amitriptyline 10 mg PO BEDTIME 30 days buprenorphine 20 mcg/hour 1 patch transdermal QWEEK 28 days clonazepam 1 mg PO Q8H 30 days losartan 50 mg PO QAM 90 days meloxicam 15 mg PO DAILY 30 days omeprazole 20 mg PO DAILY oxycodone 5 mg PO DAILY PRN 30 days pramipexole 0.25 mg PO BEDTIME 90 days Tobacco use date assessed: 07/26/23 Dental Screening Dental Screen Date: 04/26/23 HPI f/u chronic pain rescheduled HPI Details 54 y/o male presents to f/u chronic pain . He?continues?buprenorphine?20?mcg?patch?and?meloxicam. Pt notes insurance is changing soon and is worried about increasing prices. Pt requests another round of prednisone. He has an appt. with neurosurgery next week. [facility] Medical History (Updated 09/07/24 @ 09:13 by Lobo Hunt) Chronic pain syndrome Disc degeneration, lumbar Mild anemia Osteoarthritis GERD (gastroesophageal reflux disease) Depression with anxiety Claustrophobia HTN (hypertension) Arthritis Surgical History History of esophagogastroduodenoscopy (EGD) Hx of colonoscopy History of hip replacement H/O knee surgery History of spinal fusion Family History Father No problems noted. Mother No problems noted. Social History Household Members: Family Housing: House Are you a primary career and technology education teacher to a significant other at home: No Do you presently have visiting nurse or other home services: No Alcohol intake: never Patient Tobacco Use Status: Former Tobacco user Tobacco use type: Cigarette Cigarette Packs Per Day: 1 Cigarettes Per Day: 5 Years Smoked: 30 e-Cigarette/Vaping Use: Never Used Second Hand Smoke Exposure: No Substance Use Type: Marijuana service: No Current occupational status: disabled Current occupation: rt hand Current occupational exposures/hazards: No Cognitive needs: No Hearing needs: No Vision needs: No Questionnaire Thrive Questionnaire Date Thrive assessed: 05/02/24 I am a: Parent/Caregiver What is your living situation today?: I have a place to live, but I am worried about losing it in the future Within the past 12 months, did the food you bought not last and you didn't have the money to get more?: Sometimes True Within the past 12 months, did you worry whether your food would run out before you got money to buy more?: Sometimes True Do you have trouble paying for medicines?: Yes Do you have trouble getting transportation to medical appointments?: No Do you have trouble paying your heating and electricity bill?: Yes Do you have trouble taking care of your child, family member or friend?: No Do you have trouble with day-to-day activities such as bathing, preparing meals, shopping, managing finances, etc.?: Yes Are you currently unemployed and looking for a job?: I choose not to answer this question Are you interested in more education?: No Currently or been in a relationship where the following occur: No concerns reported THRIVE Score: 4 GISSEL-7 AMB Questionnaire GISSEL-7 Date GISSEL - 7 assessed: 04/26/23 Source: Developed by Drs. Mika Nguyen, Valorie Chen, Ramírez House and colleagues, with an educational jonas from [employer]. Review of Systems Const Denies chills, Denies fatigue, Denies fever(s), Denies headache(s) and Denies weakness ENT Denies dizziness and Denies headache(s) Card Denies dyspnea Resp Denies cough, Denies dyspnea, Denies wheezing and Denies other (shortness of breath) Musc Denies numbness and Denies tingling Neuro Denies dizziness, Denies headache(s), Denies numbness, Denies tingling and Denies weakness Psych Denies anxiety and Denies depression Endo Denies fatigue Aller/Immun Denies wheezing Physical exam (Primary Care) Vital Signs: Last Vital Signs Temp 98.1 F 02/06/25 14:35 Pulse 80 02/06/25 14:35 Resp 14 02/06/25 14:35 BP 134/60 02/06/25 14:35 Pulse Ox 97 02/06/25 14:35 Oxygen Delivery Method Room Air 02/06/25 14:35 BMI result Body Mass Index 28.0 Tobacco/Smoking Status: Tobacco use Status Tobacco use date assessed 07/26/23 02/06/25 14:29 Patient Tobacco Use Status Former Tobacco user 02/06/25 14:29 Tobacco use type Cigarette 02/06/25 14:29 e-Cigarette/Vaping Use Never Used 02/06/25 14:29 Thrive Assessment: Date of Thrive Assessment Date Thrive assessed 05/02/24 02/06/25 14:29 Currently or been in a relationship where the following occur: No concerns reported Const General: well developed; No acute distress Nutritional Appearance: well nourished Orientation/consciousness: patient oriented x3 [facility] Head: Yes normocephalic and Yes atraumatic Eyes General: appearance normal, both eyes and all related structures Pupils: Equal, round and reactive pupils present EOM: EOMs intact bilaterally Resp Effort & Inspection: normal respiratory effort Auscultation: clear to auscultation bilaterally Cardio Rate: regular rate Rhythm: regular rhythm Heart sounds: S1 normal heart sound present, S2 normal heart sound present, no gallops, no murmurs and no rubs Neuro General: patient oriented x3 and gait normal Cranial nerves: Yes Equal, round and reactive pupils present Psych Affect: normal affect Coding Level of Care Code Est Pt Level 3 (03470) Diagnoses Chronic pain syndrome G89.4 Assessment & Plan Assessment & Plan (1) Chronic pain syndrome: Code(s): G89.4 - Chronic pain syndrome Category: Medical Plan: Low back pain & Lower?extremity?pain primarily?due?to?lumbar?radiculopathy Had?referred?him?to?vascular?surgery?due?some?edema and?pain?but?after?thorough?workup,?vascular?ruled?out?significant?venous?insuff iciency?or?peripheral?arterial?disease. MRI?showed?significant?foraminal?stenosis?primarily?on?the?left?at?L5-S1?cons istent?with?his?left-sided?symptoms. Patient?had?surgery?with?[facility] January 2024. Unfortunately,?he?has?not improved?significantly?from?this?procedure. He?continues?buprenorphine?20?mcg?patch?and?meloxicam. He?has?been?consistent?and?appropriate?with?these Had added oxycodone?5?mg?daily?for?breakthrough?pain at last visit. This is helping but pt had requested more at bedtime - tried gabapentin and this did not help and he did not like how he felt on it. Pt called and I sent prednisone which help as it often does. We have discussed that we should only use steroid sparingly. Had?tried?to?refer?him?to?neurosurgery?at?[facility], Dr Zuleta?for?2nd?opinion?but?they?do?not?take?his?insurance. Referred?to??[facility] and he has appt next week. Patient requests another round of prednisone. Advised him to hold off on this as he is going to see neurosurgeon next week. Patient understands agrees Plan Patient says he will have significant changes to his insurance after the new year. Ordering labs today and will follow-up on these as well as recommendations from Dr. Parker in about a month Orders: Orders Buprenorphine Scr Today F11.90 - Opioid use, unspecified, uncomplicated, G89.29 - Other chronic pain, M54.50 - Low back pain, unspecified Complete Blood Count Auto Diff Today Z00.00 - Encounter for general adult medical examination without abnormal findings Microalbumin, Random (w Creat) Today I10 - Essential (primary) hypertension Prostate Specific Antigen Scr Today Z12.5 - Encounter for screening for malignant neoplasm of prostate TSH reflex Free T4 Today Z00.00 - Encounter for general adult medical examination without abnormal findings UA CC w/rflx Micro + Cult Today Z00.00 - Encounter for general adult medical examination without abnormal findings Vitamin B12 and Folate Today E53.8 - Deficiency of other specified B group vitamins Opiates GCMS Expanded, Ur Today F11.90 - Opioid use, unspecified, uncomplicated, G89.29 - Other chronic pain, M54.50 - Low back pain, unspecified Comprehensive [place]. Panel Fast Today Z00.00 - Encounter for general adult medical examination without abnormal findings Lipid Panel Today Z00.00 - Encounter for general adult medical examination without abnormal findings Vitamin D 25-OH Total Today E55.9 - Vitamin D deficiency, unspecified Hemoglobin A1c Today R73.01 - Impaired fasting glucose
[2025-02-06 14:35] VITALS: BP 134/60; PULSE 80; RESP 14; TEMP 36.7; O2SAT 97; BMI 28.0
--- OUTSIDE RECORDS SUMMARY | 2025-02-07 02:43 | XMS_ITS | Data Portability ---
Author Organization [facility] Address [address] [facility] [address] [place] [address] Care Team Providers Care Sand Slinger Name Role Phone JUAN DIANA Primary Care Provider [phone] Assessment Encounter Date Assessment Date Assessment LastModified by Organization Details LastModified Time 10/01/2019 10/01/2019 Alejandro Caruso is a 49 year old man with right sided low back pain which is worse for the past few months. He is S/P L4-5 back fusion in 2014 with persistent back pain. On exam he has positive facet loading with tenderness in L3-4 and L5-S1 facet region in the right lumbar region. X-ray Lumbar spine shows arthritic changes in the facet at L3-4 and L5-S1 levels.MRI Lumbar spine shows post surgical changes and multilevel disc degeneration changes with mild to moderate spinal stenosis at L3-4 level and compression of bilateral L5 , L3 and right L2 nerve roots. Currently his back pain is his worse pain. Trial of Right Lumbar facet joint steroid injections at L3-4 and L5-S1 levels under fluoroscopic guidance was recommended. The risks and benefits of the procedure were discussed in detail. He wishes to proceed. We will obtain prior authorization and an appointment will be booked for the same . He needs a driver license agent on the day of the procedure. He also has lumbar radiculitis.He may also benefit from trial of lumbar epidural steroid injection under fluoroscopic guidance in the future. [email or web address] Not available 10/01/2019 15:40:41 11/06/2019 11/06/2019 Alejandro Caruso is a 49 year old man with right sided low back pain which is worse for the past few months. He is S/P L4-5 back fusion in 2014 with persistent back pain. On exam he has positive facet loading with tenderness in L3-4 and L5-S1 facet region in the right lumbar region. X-ray Lumbar spine shows arthritic changes in the facet at L3-4 and L5-S1 levels.MRI Lumbar spine shows post surgical changes and multilevel disc degeneration changes with mild to moderate spinal stenosis at L3-4 level and compression of bilateral L5 , L3 and right L2 nerve roots. Currently his back pain is his worse pain. He is here for a trial of Right Lumbar facet joint steroid injections at L3-4 and L5-S1 levels under fluoroscopic guidance . The risks and benefits of the procedure were discussed in detail. He wishes to proceed. He can follow up in four weeks by telehealth meg Not available 11/07/2019 15:38:13 11/30/2019 11/30/2019 Alejandro Caruso is a 49 year old man with right sided low back pain which is worse for the past few months. He is S/P L4-5 back fusion in 2014 with persistent back pain. On exam he has positive facet loading with tenderness in L3-4 and L5-S1 facet region in the right lumbar region. X-ray Lumbar spine shows arthritic changes in the facet at L3-4 and L5-S1 levels.MRI Lumbar spine shows post surgical changes and multilevel disc degeneration changes with mild to moderate spinal stenosis at L3-4 level and compression of bilateral L5 , L3 and right L2 nerve roots. Currently his back pain is his worse pain. This is a follow up visit after a trial of Right Lumbar facet joint steroid injections at L3-4 and L5-S1 levels under fluoroscopic guidance . He reports no pain benefit. He will follow up after a surgical consult with Dr. Duque. [email or web address] Not available 12/07/2019 14:28:51 Plan of Treatment Reminders Order Date Submit Date Provider Last Modified By Organization Details Last Modified Time Details Appointments None record ed. Lab None record ed. Referral None record ed. Procedures None record ed. Surgeries None record ed. Imaging None record ed. Medication Orders None record ed. Patient TargetsNo targets recorded. Patient Instructions Encounter Date Encounter Id Patient Instructions Last Modified By Organization Details Last Modified Time 10/01/2019 [id number] He was advised against bed rest lasting longer than four days and to continue activities as tolerated. [email or web address] Not available 10/01/2019 15:00:53 11/06/2019 [id number] He was advised against bed rest lasting longer than four days and to continue activities as tolerated. [email or web address] Not available 11/07/2019 15:31:00 11/30/2019 [id number] He was advised against bed rest lasting longer than four days and to continue activities as tolerated. [email or web address] Not available 12/07/2019 14:27:38 Reason for Referral None Reported. Problems Name Problem SNOMED Code Status Onset Date Resolution Date Notes Provider Name and Address Organization Details Recorded Time Degeneration of lumbar intervertebral disc 11650264 Active Lovely holland MD [address] [facility] , [address], [place], [address], [place] [facility] 0 08:48:18 Lumbar post-laminecto my syndrome 148818044 Active Lovely holland MD [address] [facility] , [address], [place], [address], [place] [facility] 0 08:48:29 Lumbosacral spondylosis without myelopathy 09113480 Active Lovely holland MD [address] [facility] , [address], [place], [address], [place] [facility] 0 08:48:57 Spinal stenosis of lumbar region 04636563 Active Lovely holland MD [address] [facility] , [address], [place], [address], [place] [facility] 0 08:49:09 Lumbosacral radiculopathy 7305709 Active Lovely holland MD [address] [facility] [facility] , [address], [place], [address], [place] [facility] 0 08:49:33 Problem Notes None recorded. Procedures Surgical History Date Name Laterality Status Provider Name and Address Organization Details Recorded Time 11/06/19 20 Fluoroscopic Guided Lumbar Facet Steroid Injections of levels completed Lovely Ngo MD [address] , [address], [place], [address], [place] [facility] 11/07/2019 15:36:46 Back Surgery completed Lovely Ngo MD [address] , [address], [place], [address], [place] [facility] 10/01/2019 11:26:13 total replacement of hip completed Lovely Ngo MD [address] , [address], [place], [address], [place] [facility] 10/01/2019 11:27:04 Knee arthroscopy/surg hien completed Lovely Ngo MD [address] , [address], [place], [address], [place] [facility] 10/01/2019 11:28:52 Eye Surgery completed Lovely Ngo MD [address] , [address], [place], [address], [place] [facility] 10/01/2019 11:29:21 Imaging Results None recorded. Procedure Notes None recorded. Medical Equipment None Reported. Allergies No known drug allergies Medications Name Sig Start Date Stop Date Status Note LastModified by Organization Details LastModified Time amoxicillin 500 mg capsule 09/30 completed Not Available Not Available Not Available clonidine HCl 0.1 mg tablet 09/30 completed Not Available Not Available Not Available acetaminoph en 325 mg tablet 09/30 completed Not Available Not Available Not Available atorvastati n 20 mg tablet active Not Available Not Available Not Available nicotine 14 mg/24 hr daily transdermal patch 09/30 completed Not Available Not Available Not Available ibuprofen 800 mg tablet 09/30 completed Not Available Not Available Not Available nicotine (polacrilex ) 2 mg gum active Not Available Not Available N ot Available tizanidine 4 mg tablet 09/30 completed Not Available Not Available Not Available prednisone 5 mg tablet 11/05 completed Not Available Not Available Not Available clonazepam 1 mg tablet active Not Available Not Available Not Available atenolol 25 mg tablet active Not Available Not Available No t Available hydroxyzine pamoate 50 mg capsule active Not Available Not Available N ot Available amlodipine 5 mg tablet active Not Available Not Available Not Available omeprazole 40 mg capsule,del ayed release active Not Available Not Available Not Available acetaminoph en 500 mg tablet active Not Available Not Available Not Available aspirin 325 mg tablet,mabel yed release 09/30 completed Not Available Not Available Not Available nicotine (polacrilex ) 4 mg gum 09/30 completed Not Available Not Available Not Available mirtazapine 30 mg tablet active Not Available Not Available Not Available omeprazole 20 mg capsule,del ayed release 09/30 completed Not Available Not Available Not Available diclofenac sodium 75 mg tablet,mabel yed release 09/30 completed Not Available Not Available Not Available bisacodyl 5 mg tablet,mabel yed release active Not Available Not Available Not Available methylpredn isolone 4 mg tablets in a dose pack 11/05 completed Not Available Not Available Not Available oxycodone 5 mg tablet 09/30 completed Not Available Not Available Not Available DentaGel 1.1 % AFTER BRUSHING W/ TOOTHPAST E ,RINSE. APPLY TO TEETH X1 MIN THEN SPIT. NO FOOD/DRIN K X30 MIN active Not Available Not Available No t Available duloxetine 60 mg capsule,del ayed release active Not Available Not Available Not Available chlorhexidi ne gluconate 0.12 % mouthwash active Not Available Not Available No t Available oxycodone 20 mg tablet 09/30 completed Not Available Not Available Not Available oxycodone 10 mg tablet TAKE 1 TAB 5X DAILY X4 DAY, 1 TAB 4X DAILY X4, 1 TAB 3X DAILY X4, 1 TAB 2X DAILY X4 DAY, 1 TAB DAILY 09/30 completed Not Available Not Available Not Available diclofenac 1 % topical gel 11/05 completed Not Available Not Available Not Available GaviLyte-G 236 gram-22.74 gram-6.74 gram-5.86 gram oral solution 09/30 completed Not Available Not Available Not Available buprenorphi ne 8 mg-naloxone 2 mg sublingual film active Not Available Not Available Not Available buprenorphi ne 4 mg-naloxone 1 mg sublingual film 09/30 completed Not Available Not Available Not Available Vitals Date Recorded Body height Body mass index (BMI) Body weight Heart rate Oxygen saturation Oxygen saturation in Arterial blood by Pulse oximetry Pain severity - 0-10 verbal numeric rating [Score] - Reported Systolic And Diastolic Provider Name and Address Organization Details Last Updated DateTime 0 177.8 cm 35.9 kg/m2 846491. 09 g 67 /min 97 % 97 % 7 129/68 mm[Hg] Lovely holland MD [address] , [address], [place], [address], [place] - [facility] 0 11:15:29 Date Recorded Body height Heart rate Oxygen saturation Oxygen saturation in Arterial blood by Pulse oximetry Systolic And Diastolic Provider Name and Address Organization Details Last Updated DateTime 0 177.8 cm 77 /min 97 % 97 % 134/56 mm[Hg] Nimo Ortega [place] - [facility] 0 11:05:05 Social History Question Answer Notes LastModified by Organizat [employer] Details LastModified Time Tobacco Smoking Status Current Every Day Smoker Lovely Ngo MD [address] , [address], [place], [address], [facility] - [facility] 10/01/2019 11:23:47 Which Illicit Or Recreational Drugs Have You Used? None Information not available 10/01/2019 Education 12 Information n ot available 10/01/2019 Live Alone Or With Others? With Others Live With Parents Information not available 10/01/2019 Marital Status Informati on not available 10/01/2019 How Many Years Have You Smoked Tobacco? 20 Information not available 10/01/2019 Sex: Unknown Functional Status Question Answer Note LastModified by Organizat ion Details LastModified Time What is your level of alcohol consumption? None Information not available 10/01/2019 What is your occupation? Disabled [employer] Information not available 10/01/2019 Mental Status None recorded. Family History Relationship Description Onset Age of this Age Resolved Age Notes LastModified by Organization Details LastModified Time Mother Heart disease CAD S/P heart bypass [email or web address] Not available 10/01/2019 11:23:30 Medical History Condition Response Anxiety Disorder Y Hyperlipidemia Y Arthritis Y Hypertension Y Depression Y GERD/Reflux Y Past Encounters Encounter ID Performer Location Encounter Start Date Encounter Closed Date Diagnosis/Indication Diagnosis SNOMED-CT Code Diagnosis ICD10 Code Diagnosis IMO Codes Diagnosis Note [id number] Lovely Ngo MD PAIN OFFICE [address] [facility] [place] [address] 10/01/2019 10:55:38 10/01/2019 15:57:23 Lumbar post-laminectomy syndrome 093607199 M96.1 Lumbosacra l spondylosis without myelopathy 61746660 M47.817 Spinal keiry nosis of lumbar region 46481207 M48.061 Degenerati on of lumbar intervertebral disc 21130671 M51.36 [id number] Lovely Ngo MD PAIN OFFICE [facility] [address] [place] [address] 11/06/2019 10:41:07 11/07/2019 15:39:16 Lumbar post-laminectomy syndrome 028188756 M96.1 Lumbosacra l spondylosis without myelopathy 66991617 M47.817 Spinal keiry nosis of lumbar region 72850487 M48.061 Degenerati on of lumbar intervertebral disc 43527129 M51.36 [id number] Lovely Ngo MD PAIN OFFICE [address] [facility] [address] [facility] [place] [address] 11/30/2019 10:33:41 12/07/2019 14:29:24 Lumbar post-laminectomy syndrome 415963895 M96.1 Lumbosacra l spondylosis without myelopathy 42873039 M47.817 Spinal keiry nosis of lumbar region 53038833 M48.061 Degenerati on of lumbar intervertebral disc 13103879 M51.36 Health Concerns Section Related Observation LastModified by Organization Detai ls LastModified Time None Recorded Concern Status LastModified by Organization Details LastModified Time None Recorded Advance Directives Directive None Recorded Payers Insurance Date Sequence Insurance Name Policy Number Policy Leigh Covered Member ID Leigh Member ID Guarantor Name 09/28/2019 1 [facility] - DOS PRIOR TO 2022 - DUAL ELIGIBLE (MEDICARE REPLACEMENT/ADV ANTAGE - HMO) Alejandro Caruso [id number] Alejandro Caruso Notes Date Note Type Note Provider Name and Address Organization Details Recorded Time 10/01/2019 text/html Alejandro Caruso is a 49 year old man with complaints of right sided low back pain. He states he has been having low back pain for the past 35 years. He has been having a recent exacerbation of his pain. He is S/P back surgery on 09/[address] Jacobs and reports no pain benefit. He started to have severe right sided low back pain . He describes the pain as a shooting pain , sharp in his right low back occasionally radiating into his right buttock region. Current pain level is 5-10/10. Pain is aggravated by standing and walking . Pain is relieved with marijuana. He states he has a medical marijuana card. He has no history of bladder or bowel incontinence.MRI Lumbar spine shows post surgical changes and multilevel disc degeneration changes with mild to moderate spinal stenosis at L3-4 level and compression of bilateral L5 , L3 and right L2 nerve roots.He has trialed physical therapy at [facility] and [facility] with some pain benefit. He has trialed injections at [facility] and [facility] with no pain benefit. Lovely Ngo MD [address] [facility] , [address], [place], [address], [place] [facility] 10/03/2019 08:41:08 11/06/2019 text/html He is here for a right lumbar facet joint injection under fluoroscopic guidance Lovely Ngo MD [address] [facility] , [address], [place], [address], [place] [facility] 11/07/2019 16:38:20 11/30/2019 text/html This is a follow up visit after a lumbar facet joint injection under fluoroscopic guidance. He reports no pain benefit. He has had injections at [facility] in the past and injections have not helped his pain. Lovely Ngo MD [address] [facility] , [address], [place], [address], [place] [facility] 12/10/2019 10:22:14
--- OUTSIDE RECORDS SUMMARY | 2025-02-07 02:43 | XMS_ITS | Clinical Summary ---
Author Organization [facility] Address [address] [place] [address] Phone Care Team Providers Care Substitute Nurse Name Role Phone Jose E Dye MD Primary Care Provider Allergies Active Allergy Reactions Criticality Noted Date Comments Pollen Extracts 08/15/2012 Medications amitriptyline (ELAVIL) 25 MG tablet Take 1 tablet by mouth nightly at bedtime. 1 Active amLODIPine (NORVASC) 5 MG tablet Take 1 tablet by mouth daily. 1 Active atenolol (TENORMIN) 25 MG tablet Take 2 tablets by mouth daily. 1 Active atorvastatin (LIPITOR) 20 MG tablet Take 1 tablet by mouth daily. 1 Active clonazePAM (KLONOPIN) 1 MG tablet Take 2 mg by mouth. Active nicotine polacrilex (NICORETTE) 2 mg gum Use as directed 2 mg in the mouth or throat. 1 Active omeprazole (PRILOSEC) 40 MG capsule Take 20 mg by mouth daily. 1 Active DULoxetine (CYMBALTA) 60 MG capsule 2 (two) times a day. 1 Active hydrOXYzine (VISTARIL) 50 MG capsule 1 Active nicotine polacrilex (NICORETTE) 4 MG gum 1 Active mirtazapine (REMERON) 45 MG tablet Take 45 mg by mouth. 1 Active predniSONE (DELTASONE) 20 MG tablet 3 tablets X 3 days, 2 tablets X 3 days , 1 tablet X 3 days 18 tablet 2 Active HYDROcodone-ac etaminophen (NORCO) 5-325 mg per tablet Take 1 tablet by mouth every 6 (six) hours as needed for pain (specific location in comments) (RIBS). Avoid alcohol, working, driving,machinery while taking.Caution drowsiness,falls. May partial fill. 12 tablet 2 Active traMADoL (ULTRAM) 50 mg tablet Take 1 tablet (50 mg total) by mouth every 8 (eight) hours as needed for pain (specific location in comments). 12 tablet 2 Active buprenorphine (BUTRANS) 15 mcg/hour PTWK APPLY 1 PATCH TRANSDERMALLY EVERY WEEK FOR 28 DAYS MASSPAT VERIFIED 3 Active celecoxib (CELEBREX) 100 MG capsule Take 1 capsule by mouth 2 (two) times a day. 3 Active valACYclovir (VALTREX) 500 MG tablet Take 1 tablet by mouth 2 (two) times a day. 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 Ritter: severe bilateral femoral head destruction righ tgreater than left likely secondary to avascular necrosis DJD (degenerative joint disease) of knee 019 Overview (04/15/2021): bilateral Failed back syndrome of lumbar spine 02/02/2018 Depression 05/15/2014 Tobacco use disorder 10/16/2013 Lumbar disc disease 08/15/2012 HTN (hypertension) 08/15/2012 Anxiety 08/15/2012 Immunizations Immunization Administration Dates Next Due Td, unspecified formulation 10/02/2001 Tdap 10/27/2022,10/16/2013 Zoster recombinant 09/17/2022,10/31/2020 Social History Tobacco Use Types Packs/Day Years Used Date Smoking Tobacco: Some Days Cigarettes Smokeless Tobacco: Never Tobacco Cessation:Ready to Q uit: Not Asked; Counseling Given: Not Answered Comments:Using Nicorette Gum Alcohol Use Standard Drinks/Week [...] Orientation Straight 09/29/2023 2: 52 PM EDT Last Filed Vital Signs Vital Sign Reading Time Taken Comments Blood Pressure 167/74 01/27/2024 8:25 AM EST Pulse 75 01/27/2024 8:25 AM EST Temperature 36.7 C (98 F) 01/27/2024 8:25 AM EST Respiratory Rate 18 01/27/2024 8:25 AM EST Oxygen Saturation 99% 01/27/2024 8:25 AM EST Inhaled Oxygen Concentration - - Weight 105.7 kg (233 lb) 02/07/2022 9:18 AM EST Height 177.8 cm (5' 10 ) 02/07/2022 9:18 AM EST Body Mass Index 33.43 02/07/2022 9:18 AM EST Plan of Treatment Health Maintenance Due Date Last Done Comments LIPID PANEL 1968 DEPRESSION SCREENING 1980 SMOKING Hx and SMOKELESS TOBACCO SCREENING 02/28/1981 HEPATITIS C SCREENING 02/28/1986 HIV ONE-TIME SCREENING (18-65 YEARS) 02/28/1986 PNEUMOCOCCAL VACCINES (50+ years) (1 of 2 - PCV) 02/28/1987 SCREENING FOR DIABETES 02/28/2003 COLOGUARD 02/28/2013 COLONOSCOPY 02/28/2013 COLORECTAL CANCER SCREENING 02/28/2013 FIT TEST 02/28/2013 FOBT 02/28/2013 SIGMOIDOSCOPY 02/28/2013 VIRTUAL COLONOSCOPY 02/28/2013 BLOOD PRESSURE 07/26/2024 01/27/2024 INFLUENZA VACCINE (#1) 2024 11/16/2023, 2022 COVID-19 VACCINE ( season) 2024 11/16/2023, 12/17/2022, 01/15/2022, Additional history exists Adult Td,Tdap Booster 10/27/2032 10/27/2022 , 10/16/2013, 10/02/2001 RSV VACCINE (1 - 1-dose 75+ series) 02/28/2043 ZOSTER VACCINES Completed 09/17/2022, 10/31/2020 HEPATITIS A VACCINES Aged Out No long er eligible based on patient's age to complete this topic HIB VACCINES Aged Out No longer eligi ble based on patient's age to complete this topic MENINGOCOCCAL VACCINES (ACWY) Aged Out No longer eligible based on patient's age to complete this topic MENINGOCOCCAL VACCINES (B) Aged Out N o longer eligible based on patient's age to complete this topic Medical Devices Not on file Insurance [employer] PPO MEDICARE REPLACEMENT MEDICARE PART A & B [employer] PPO MEDICARE REPLACEMENT MEDICARE PART A & B [employer] PPO MEDICARE REPLACEMENT MEDICARE PART A & B [employer] O MEDICARE REPLACEMENT MEDICARE PART A & B [employer] PPO MEDICARE REPLACEMENT MEDICARE PART A & B [employer] PPO MEDICARE REPLACEMENT MEDICARE PART A & B Care Teams Substitute Nurse Relationship Specialty Start Date End Date Jose E Dye MD PCP - General Family Medicine 01/27/24 Additional Source Comments The information contained in this document represents components of the legal health record. It is not the complete legal health record.[facility]
== END 2025-02-06 15:56 | disposition home or self-care (01) ==
LOC: HO.HMCFM 14:14
PROVIDERS: PCP Family Medicine; Visit Provider Family Medicine
DX: G89.4 Chronic pain syndrome (principal)

== ENCOUNTER → 2025-02-06 14:13 | Outpatient (BNVA) | payer MEDICARE, SELFPAY | PROVIDERS: PCP Family Medicine; Visit Provider Family Medicine | DX: G89.4 Chronic pain syndrome (principal) | CPT/HCPCS: 99212 ==

== ENCOUNTER 2025-02-26 07:32 | Outpatient (REF) | payer MEDICARE, SELFPAY ==
--- OUTSIDE RECORDS SUMMARY | 2022-01-30 14:40 | XMS_ITS | Encounter Summary ---
Author Organization [facility] Address [address] [place] [id number] Phone Care Team Providers Care Insulation Installer Name Role Phone Jose E Dye MD Primary Care Provider Encounter Details Date Type Department Care Team (Late st Contact Info) Description 01/30/2022 2:40 PM EST Hospital Encounter [facility] [address] [place] [id number] Gisela Redd FNP [address] [place] [address] [email or web address] Social History Tobacco Use Types Packs/Day Years Used Date Smoking Tobacco: Some Days Cigarettes Smokeless Tobacco: Never Comments:Using Nicorette Gum Alcohol Use Standard Drinks/Week Comments Not Currently 0 (1 standard drink = 0.6 oz pur e alcohol) Education Answer Date Recorded Are you interested in more education? Not on lise e 07/16/2022 Are you concerned about learning? Not on file 07/16/2022 No 07/16/2022 No 07/16/2022 Digital Access Answer Date Recorded No 08/14/2022 No 08/14/2022 Reliable internet access at home? Not on file 08/14/2022 Device with a working camera? Not on file Sex and Gender Information Value Date Recorded Sex Assigned at Male 09/29/2023 2:52 PM EDT Legal Sex Male 9:37 PM EDT Gender Identity Male 09/29/2023 2:52 PM EDT Sexual Orientation Straight 09/29/2023 2: 52 PM EDT documented as of this encounter Plan of Treatment Not on file documented as of this encounter Procedures Procedure Name Priority Date/Time Associated Diagnosis Comments XR RIBS 3 OR MORE VIEWS WITH PA CHEST (RIGHT) Urgent/patient waiting 01/30/2022 3:02 PM EST Closed fracture of one rib of right side, initial encounter documented in this encounter Results * XR RIBS 3 OR MORE VIEWS WITH PA CHEST (RIGHT) (01/30/2022 3:02 PM EST) Anatomical Region Laterality Modality Chest Computed Radiogr aphy 01/30/2022 3:17 PM EST Impressions 01/30/2022 3:21 PM EST Minimally displaced fracture of the right lateral 10th rib. Narrative 01/30/2022 3:21 PM EST XR RIBS 3 OR MORE VIEWS WITH PA CHEST (RIGHT) COMPARISON: None FINDINGS: Minimally displaced fracture of the right lateral 10th rib. PA evaluation of the chest demonstrates no focal consolidation, pleural effusion, pulmonary edema, or pneumothorax. Cardiomediastinal silhouette is normal. Partially visualized lumbar spine fixation hardware. Procedure Note Gerson Oliver MBBS - 01/30/2022 XR RIBS 3 OR MORE VIEWS WITH PA CHEST (RIGHT) COMPARISON: None FINDINGS: Minimally displaced fracture of the right lateral 10th rib. PA evaluation of the chest demonstrates no focal consolidation, pleuraleffusion, pulmonary edema, or pneumothorax. Cardiomediastinal silhouetteis normal. Partially visualized lumbar spine fixation hardware. IMPRESSION: Minimally displaced fracture of the right lateral 10th rib. Gisela Redd SENIOR NET PROGRAMMER IMG XR CHEST Final Resul t documented in this encounter Visit Diagnoses Not on filedocumented in this encounter Care Teams Insulation Installer Relationship Specialty Start Date End Date Jose E Dye MD PCP - General Family Medicine 01/30/22 09/28/23 documented as of this encounter Additional Source Comments The information contained in this document represents components of the legal health record. It is not the complete legal health record.[facility]
--- OUTSIDE RECORDS SUMMARY | 2022-10-27 07:25 | XMS_ITS | Encounter Summary ---
Author Organization [facility] Address [address] [place] [phone] Phone Care Team Providers Care Sand Technologist Name Role Phone Jose E Dye MD Primary Care Provider Encounter Details Date Type Department Care Team (Late st Contact Info) Description 10/27/2022 8:25 AM EDT Hospital Encounter [facility] [address] [place] [phone] Kat Gay CNP [address] [place] [phone] [email or web address] Social History Tobacco Use Types Packs/Day Years [...] Correlation with point tenderness. us Kat Gay CYLINDER HEAD ASSEMBLER IMG XR UPPER EXTREMITY Terrie l Result documented in this encounter Visit Diagnoses Not on filedocumented in this encounter Care Teams Sand Technologist Relationship Specialty Start Date End Date Jose E Dye MD PCP - General Family Medicine 01/30/22 09/28/23 documented as of this encounter Additional Source Comments The information contained in this document represents components of the legal health record. It is not the complete legal health record.[facility]
--- OUTSIDE RECORDS SUMMARY | 2022-12-09 12:45 | XMS_ITS | Encounter Summary ---
Author Organization [facility] Address [address] [place] [phone] Phone Care Team Providers Care Power Plant Operators Supervisor Name Role Phone Jose E Dye MD Primary Care Provider Encounter Details Date Type Department Care Team (Late st Contact Info) Description 12/09/2022 1:45 PM EDT Hospital Encounter [facility] [address] [place] [phone] Manasa Middleton PA-C, MS [address] [place] [address] Social History Tobacco Use Types Packs/Day Years [...] on filedocumented in this encounter Care Teams Power Plant Operators Supervisor Relationship Specialty Start Date End Date Jose E Dye MD PCP - General Family Medicine 01/30/22 09/28/23 documented as of this encounter Additional Source Comments The information contained in this document represents components of the legal health record. It is not the complete legal health record.[facility]
--- OUTSIDE RECORDS SUMMARY | 2024-01-27 08:31 | XMS_ITS | Encounter Summary ---
Author Organization [facility] Address [address] [place] [phone] Phone Care Team Providers Care Warehouseman Name Role Phone Jose E Dye MD Primary Care Provider Encounter Details Date Type Department Care Team (Late st Contact Info) Description 01/27/2024 8:31 AM EST Hospital Encounter [facility] [address] [place] [phone] Gisela Redd FNP [address] [place] [address] [email or web address] Social History Tobacco Use Types Packs/Day Years [...] report originallycreated by Will Aden. Gisela Redd DOLL WIG MAKER ROOTED HAIR IMG XR UPPER EXTREMITY Terrie l Result documented in this encounter Visit Diagnoses Not on filedocumented in this encounter Care Teams Warehouseman Relationship Specialty Start Date End Date Jose E Dye MD PCP - General Family Medicine 01/27/24 documented as of this encounter Additional Source Comments The information contained in this document represents components of the legal health record. It is not the complete legal health record.[facility]
--- OUTSIDE RECORDS SUMMARY | 2025-02-22 08:45 | XMS_ITS | Encounter Summary ---
Author Organization [facility] Address [address] [place] [address] Care Team Providers Care Vineyard Supervisor Name Role Phone Jose E Dye MD Primary Care Provider [phone] Reason for Visit * Reason Comments Second Opinion History of previous lumbar surgery, left foot numbness, tingling Encounter Details Date Type Department Care Team (Late st Contact Info) Description 02/22/2025 8:45 AM EST Office Visit Neurosurgery [facility] [address] [facility] [address] [place] [phone] Giselle Vaughan MD [address] [place] [address] Chronic bilateral low back pain with left-sided sciatica (Primary Dx) Social History Tobacco Use Types Packs/Day Years Used Date Smoking Tobacco: Former Cigarettes 0.5 Q uit: 11/28/2019 Smokeless Tobacco: Never Tobacco Cessation:Counseling Given: Not Answered Alcohol Use Standard Drinks/Week Comments No 0 (1 standard drink = 0.6 oz pur e alcohol) Sex and Gender Information Value Date Recorded Sex Assigned at Not on file Legal Sex Male 2:20 PM EST Gender Identity Not on file Sexual Orientation Not on file documented as of this encounter Last Filed Vital Signs Vital Sign Reading Time Taken Comments Blood Pressure - - Pulse - - Temperature - - Respiratory Rate - - Oxygen Saturation - - Inhaled Oxygen Concentration - - Weight 86.2 kg (190 lb) 02/22/2025 8:49 AM EST Height 177.8 cm (5' 10 ) 02/22/2025 8:49 AM EST Body Mass Index 27.26 02/22/2025 8:49 AM EST documented in this encounter Ordered Prescriptions Prescription Sig Dispense Quantity Refills Last Filled Start Date End Date pregabalin (LYRICA) 75 mg capsuleIndications :Chronic bilateral low back pain with left-sided sciatica Take 1 capsule (75 mg total) by mouth 2 (two) times a day. Max Daily Amount: 150 mg 60 each 1 02/22/2025 documented in this encounter Progress Notes * Giselle Vaughan MD - 02/22/2025 1:41 PM ESTAssociated Problem(s): Chronic bilateral low back pain with left-sided sciatica Unfortunately, Mr. Caruso continues to have pain and paresthesias in his left leg that bother him more than his residual back pain. He has been sleeping in his recliner for 8 to 10 years and needs to keep a sock and shoe on his left foot. 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 He would consider that any side effects of medication would be mitigated by his improved ability to function. He has had significant relief in the past only on pulsed doses of prednisone. Other anti-inflammatories have not worked. Neither has gabapentin which she tried again recently. On further discussion, he believes he tried pregabalin more than 10 years ago prior to his lumbar fusion. He would be willing to try that again. I will send in a prescription for Lyrica then, if there is no improvement, I think he would be reasonable to consider a trial of low-dose prednisone such as 5 mg/day. He has a follow-up appointment with his primary in a few weeks and can reassess then. * Giselle Vaughan MD - 02/22/2025 8:45 AM EST NEUROSURGERY OFFICE VISIT Date of Visit: 02/22/2025 Referring Physician: No ref. provider found Primary Care Physician: Jose E Dye MD RE: Alejandro Caruso : 1970 Chief Complaint Patient presents with Second Opinion History of previous lumbar surgery, left foot numbness, tingling Dear Dr Jose E Dye MD Alejandro Caruso is a 54 y.o. male who presents to our office with ongoing left lower extremity pain with numbness to the sole of his foot. The foot feels frozen yet asleep. He is well-known to me from an L4-5 PLIF in 2014 after which he says his degree of chronic back pain has diminished though not resolved. He is very uncomfortable at night and has been sleeping in his recliner for the last 8 to 10 years. He is distracted by the left leg symptoms every day which are worsened by activity. 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 He was also seen by Dr. Anand and underwent what I believed to be a left L5-S1 foraminotomy in January 2024 for the left leg symptoms. There was no improvement. He has tried Mobic and Celebrex without improvement. He has had several trials of gabapentin most recently 3 to 4 months ago without benefit. On further questioning, he has tried pregabalin but it was prior to his surgery 10 years ago when he was being followed at [facility]. He has had 75 to 80% relief of leg symptoms on prednisone which has been given in 5-day pulse dosesperiodically. He is here to discuss further options. Medical History[1] Surgical History[2] Allergies[3] Current Outpatient Medications Medication Instructions amLODIPine (NORVASC) 5 mg tablet 1 tablet, Daily atorvastatin (LIPITOR) 20 mg tablet 1 tablet, Daily buprenorphine (BUTRANS) 20 mcg/hour APPLY 1 PATCH TRANSDERMALLY EVERY WEEK FOR PAIN CONTROL FOR SLEEP 28 DAYS cetirizine (ZYRTEC) 10 mg clonazePAM (KlonoPIN) 1 mg tablet take 1 tablet by mouth every 8 hours for 30 days fluticasone propionate (Flonase Allergy Relief) 50 mcg/actuation nasal spray Administer into affected nostril(s). losartan (COZAAR) 50 mg, Every morning meloxicam (MOBIC) 15 mg, Daily omeprazole (PRILOSEC) 20 mg, Daily oxyCODONE (ROXICODONE) 5 mg, Daily PRN pramipexole (MIRAPEX) 0.25 mg pregabalin (LYRICA) 75 mg, oral, 2 times daily Social History[4] Social History Social History Narrative Lives with mom, dad, sister and neice Exercise - min walking Family History[5] Physical Exam Pt is awake and alert. Speech and comprehension are intact. Respirations are unlabored, heart has regular rate. He has a well-healed midline incision as well as a smaller left paracentral incision atthe caudal and of the midline one. Seated SLR is negative. Motor exam reveals 5/5 strength to resistence bilaterally. There is decree sensation on light touch circumferentially from the left mid calfdown involving the entire foot. Patient is ambulating independently. Imaging Review of the lumbar spine MRI from [facility] on 12/23/2023 shows a solid arthrodesis at L4-5 with intact pedicle screws. There is no central stenosis. There is moderate to severe left L5-S1 foraminal narrowing. Assessment/Plan Problem List Items Addressed This Visit Chronic bilateral low back pain with left-sided sciatica - Primary Unfortunately, Mr. Caruso continues to have pain and paresthesias in his left leg that bother him more than his residual back pain. He has been sleeping in his recliner for 8 to 10 years and needs to keep a sock and shoe on his left foot. 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 He would consider that any side effects of medication would be mitigated by his improved ability to function. He has had significant relief in the past only on pulsed doses of prednisone. Other anti-inflammatories have not worked. Neither has gabapentin which she tried again recently. On further discussion, he believes he tried pregabalin more than 10 years ago prior to his lumbar fusion. He would be willing to try that again. I will send in a prescription for Lyrica then, if there is no improvement, I think he would be reasonable to consider a trial of low-dose prednisone such as 5 mg/day. He has a follow-up appointment with his primary in a few weeks and can reassess then. Relevant Medications pregabalin (LYRICA) 75 mg capsule Thank you for allowing us to care for your patient. Giselle Vaughan MD on 02/22/2025 at 1:44 PM EST CC: No ref. provider found Jose E Dye MD [facility] [place] [1] Past Medical History: Diagnosis Date Anxiety DX:Anxiety Chronic knee pain 08/15/2012 DX:Chronic knee pain Depression 05/15/2014 DX:Depression DJD (degenerative joint disease) of knee 06/27/2018 DX:DJD (degenerative joint disease) of knee; COMMENT: bilateral Dyslipidemia DX:Dyslipidemia Failed back syndrome of lumbar spine 02/02/2018 DX:Failed back syndrome of lumbar spine HTN (hypertension) DX:HTN (hypertension) Insomnia DX:Insomnia Lumbago 07/31/2014 DX:Lumbago Lumbar disc disease 08/15/2012 DX:Lumbar disc disease Prediabetes DX:Prediabetes Tobacco use disorder 10/16/2013 DX:Tobacco use disorder [2] Past Surgical History: Procedure Laterality Date BACK SURGERY 09/2014 PROCEDURE: HISTORICAL BACK SURGERY; COMMENT: fusion HIP ARTHROPLASTY Right 11/22/2018 PROCEDURE: HISTORICAL HIP REPLACEMENT; COMMENT: Right total hip arthroplasty-Dr. Riya Grey KNEE SURGERY Right 12/22/2017 PROCEDURE: HISTORICAL KNEE SURGERY; COMMENT: arthroscopic-medial, lateral menisectomy & exc biopsy of synovial mass [3] No Known Allergies [4] Social History Tobacco Use Smoking status: Former Current packs/day: 0.00 Average packs/day: 0.5 packs/day Types: Cigarettes Quit date: 11/28/2019 Years since quittin.2 Smokeless tobacco: Never Substance Use Topics Alcohol use: No Drug use: Yes Types: Marijuana/Cannabis [5] Family History Problem Relation Name Age of Onset Hypertension Mother Coronary artery disease Mother s/p CABG x3 Depression Mother Other (Other: hx alcohol abuse) Father Depression Sister Stroke Uncle dad's bro alcohol, tobacco documented in this encounter Plan of Treatment Not on file documented as of this encounter Visit Diagnoses Diagnosis Chronic bilateral low back pain with left-sided sciatica- Primary documented in this encounter Historical Medications * This list may reflect changes made after this encounter. pramipexole (MIRAPEX) 0.25 mg tablet Take 1 tablet (0.25 mg total) by mouth. at bedtime. 11/24/2024 oxyCODONE (ROXICODONE) 5 mg immediate release tablet Take 1 tablet (5 mg total) by mouth 1 (one) time each day if needed. for pain 01/30/2025 omeprazole (PriLOSEC) [address] capsule Take 20 mg by mouth daily. 08/15/2020 meloxicam (MOBIC) 15 mg tablet Take 1 tablet (15 mg total) by mouth 1 (one) time each day. 02/11/2025 losartan (COZAAR) 50 mg tablet Take 1 tablet (50 mg total) by mouth 1 (one) time each day in the morning. 01/31/2025 fluticasone propionate (Flonase Allergy Relief) 50 mcg/actuation nasal spray Administer into affected nostril(s). 03/09/2021 clonazePAM (KlonoPIN) 1 mg tablet take 1 tablet by mouth every 8 hours for 30 days cetirizine (ZyrTEC) 10 mg tablet Take 1 tablet (10 mg total) by mouth. 06/18/2020 buprenorphine (BUTRANS) 20 mcg/hour APPLY 1 PATCH TRANSDERMALLY EVERY WEEK FOR PAIN CONTROL FOR SLEEP 28 DAYS 01/29/2025 atorvastatin (LIPITOR) 20 mg tablet Take 1 tablet (20 mg total) by mouth daily. 09/29/2020 amLODIPine (NORVASC) 5 mg tablet Take 1 tablet (5 mg total) by mouth daily. 11/19/2020 added in this encounter Care Teams Vineyard Supervisor Relationship Specialty Start Date End Date Jose E Dye MD [address] [place] [address] Dr Reza [place] PCP - General 03/23/22 documented as of this encounter
--- OUTSIDE RECORDS SUMMARY | 2025-02-26 07:35 | XMS_ITS | Clinical Summary ---
Author Organization [facility] Address [address] [place] [phone] Phone Care Team Providers Care Card Setter Name Role Phone Jose E Dye MD [...] 10/20/2018 Overview (01/15/2021): Pe rxrays 09/2018 at [facility] ortho Dr. Ritter: severe bilateral femoral [...] years) (1 of 2 - PCV) 02/28/1987 COLOGUARD 02/28/2013 COLONOSCOPY 02/28/2013 COLORECTAL CANCER SCREENING [...] MEDICARE REPLACEMENT MEDICARE PART A & B Member Subscriber Plan / Payer (Ef fective 2015-Present) Name:Vickie Carusoo Member ID:[id number] Relation to Subscriber:Self Name:Vickie Carusoo Subscriber ID:[id number] Payer ID:[id number] Group ID:Not on file Type:Medicare Address: [employer] [address] [place] [id number] [employer] PPO MEDICARE REPLACEMENT MEDICARE PART A & B [employer] PPO MEDICARE REPLACEMENT MEDICARE PART A & B Care Teams Card Setter Relationship Specialty Start Date End Date Jose E Dye MD PCP - General Family Medicine 01/27/24 Additional Source Comments The information contained in this document represents components of the legal health record. It is not the complete legal health record.[facility]
--- OUTSIDE RECORDS SUMMARY | 2025-02-26 07:35 | XMS_ITS | Clinical Summary ---
Author Organization [facility] Address [address] [place] [address] Phone Care Team Providers Care Carry Out Clerk And Shelf Stocker Name Role Phone Jose E Dye MD Primary Care Provider [phone] Allergies No known active allergies Medications amLODIPine (NORVASC) 5 mg tablet Take 1 tablet (5 mg total) by mouth daily. 1 Active atorvastatin (LIPITOR) 20 mg tablet Take 1 tablet (20 mg total) by mouth daily. 1 Active buprenorphine (BUTRANS) 20 mcg/hour APPLY 1 PATCH TRANSDERMALLY EVERY WEEK FOR PAIN CONTROL FOR SLEEP 28 DAYS 5 Active cetirizine (ZyrTEC) 10 mg tablet Take 1 tablet (10 mg total) by mouth. 1 Active clonazePAM (KlonoPIN) 1 mg tablet take 1 tablet by mouth every 8 hours for 30 days Active fluticasone propionate (Flonase Allergy Relief) 50 mcg/actuation nasal spray Administer into affected nostril(s). 1 Active losartan (COZAAR) 50 mg tablet Take 1 tablet (50 mg total) by mouth 1 (one) time each day in the morning. 5 Active meloxicam (MOBIC) 15 mg tablet Take 1 tablet (15 mg total) by mouth 1 (one) time each day. 5 Active omeprazole (PriLOSEC) [address] capsule Take 20 mg by mouth daily. 1 Active oxyCODONE (ROXICODONE) 5 mg immediate release tablet Take 1 tablet (5 mg total) by mouth 1 (one) time each day if needed. for pain 5 Active pramipexole (MIRAPEX) 0.25 mg tablet Take 1 tablet (0.25 mg total) by mouth. at bedtime. 5 Active pregabalin (LYRICA) 75 mg capsuleIndicat ions:Chronic bilateral low back pain with left-sided sciatica Take 1 capsule (75 mg total) by mouth 2 (two) times a day. Max Daily Amount: 150 mg 60 each 1 5 04/23/19 26 Active Active Problems Problem Noted Date Diagnosed Date Chronic bilateral low back pain with left-sided sciatica 02/22/2025 Assessment & Plan (02/22/2025 1:41 PM EST): Unfortunately, Mr. Jones continues to have pain and paresthesias in his left leg that bother him more than his residual back pain. He has been sleeping in his recliner for 8 to 10 years and needs to keep a sock and shoe on his left foot. 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 He [...] a few weeks and can reassess then. Encounters Date Type Department Care Team Description 02/22/2025 8:45 AM EST Office Visit Neurosurgery [place] [address] [place] [phone] Giselle Vaughan MD Chronic bilateral low back pain with left-sided sciatica (Primary Dx) from Last 3 Months Surgical History Surgery Date Site/Laterality Comments KNEE SURGERY 12/22/2017 Right PROCEDURE: HISTORICAL KNEE SURGERY; COMMENT: arthroscopic-medial, lateral menisectomy & exc biopsy of synovial mass BACK SURGERY 09/2014 PROCEDURE: HISTORICAL BACK SURGERY; COMMENT: fusion HIP ARTHROPLASTY 11/22/2018 Right PROCEDURE: HISTORICAL HIP REPLACEMENT; COMMENT: Right total hip arthroplasty-Dr. Riya Grey Medical History Medical History Date Comments HTN (hypertension) DX:HTN (hyper tension) Anxiety DX:Anxiety Depression 05/15/2014 DX:Depression Insomnia DX:Insomnia Prediabetes DX:Prediabetes Dyslipidemia DX:Dyslipidemia Chronic knee pain 08/15/2012 DX:Chronic kne e pain Failed back syndrome of lumbar spine 02/02/2018 DX:Failed back syndrome of lumbar spine Lumbago 07/31/2014 DX:Lumbago Lumbar disc disease 08/15/2012 DX:Lumbar di sc disease Tobacco use disorder 10/16/2013 DX:Tobacco use disorder DJD (degenerative joint dise ase) of knee 06/27/2018 DX:DJD (degenerative joint d isease) of knee; COMMENT: bilateral Family History Medical History Relation Name Comments Other: hx alcohol abuse Father Coronary artery disease Mother s/p CABG x3 Depression Mother Hypertension Mother Depression Sister Stroke Uncle dad's bro alcohol, tobacc [...] on file Sexual Orientation Not on file Last Filed Vital Signs Vital Sign Reading Time Taken Comments Blood Pressure - - Pulse - - Temperature - - Respiratory Rate - - Oxygen Saturation - - Inhaled Oxygen Concentration - - Weight 86.2 kg (190 lb) 02/22/2025 8:49 AM EST Height 177.8 cm (5' 10 ) 02/22/2025 8:49 AM EST Body Mass Index 27.26 02/22/2025 8:49 AM EST Plan of Treatment Health Maintenance Due Date Last Done Comments Colorectal Cancer Screening: Colonoscopy 1970 Hepatitis B Vaccines (1 of 3 - 19+ 3-dose series) 02/28/1987 Pneumococcal Vaccine: 50+ Years (1 of 1 - PCV) 02/28/2018 Cholesterol Screening (Lipid Panel) 02/27/2022 HIV Screening 02/27/2022 Hepatitis C Screening 02/27/2022 Medicare Annual Wellness Visit 02/27/2022 Social Influencers of Health Screening 02/27/2022 Hypertension/CHF/CAD Annual BMP Blood Test 03/06/2022 Depression Screening 03/21/2024 DTaP,Tdap,and Td Vaccines (4 - Td or Tdap) 10/27/2032 10/27/2022, 10/16/2013, 10/02/2001 RSV Immunization Adult Patients (1 - 1-dose 75+ series) 02/28/2043 Zoster Vaccines Completed 09/17/2022, 10/31/2020 COVID-19 Vaccine Completed 12/19/2024, , 12/17/2022, Additional history exists Influenza Vaccine Completed 12/19/2024, , 12/17/2022 HIB Vaccines Aged Out No longer eligi ble based on patient's age to complete this topic HPV Vaccines Aged Out No longer eligi ble based on patient's age to complete this topic Hepatitis A Vaccines Aged Out No long er eligible based on patient's age to complete this topic IPV Vaccines Aged Out No longer eligi ble based on patient's age to complete this topic MMR Vaccines Aged Out No longer eligi ble based on patient's age to complete this topic Meningococcal ACWY Vaccine Aged Out N o longer eligible based on patient's age to complete this topic Meningococcal B Vaccine Aged Out No l onger eligible based on patient's age to complete this topic RSV Immunization Patients Under 20 months Aged Out No longer eligible based on patient's age to complete this topic Varicella Vaccines Aged Out No longer eligible based on patient's age to complete this topic Insurance AET[employer] MEDICARE ADVANTAGE Advance Directives Documents on File Type Date Recorded Patient [employer] Specialty [employer]er Inside Expl anation Health Care Decision (hx) 10/21/2014 AD MATOS DIRECTIVE Health Care Decision (hx) 10/21/2014 AD MATOS DIRECTIVE Health Care Decision (hx) 10/19/2014 AD MATOS DIRECTIVE Health Care Decision (hx) 10/19/2014 AD MATOS DIRECTIVE Health Care Decision (hx) 10/17/2014 AD MATOS DIRECTIVE Health Care Decision (hx) 10/17/2014 AD MATOS DIRECTIVE Care Teams Carry Out Clerk And Shelf Stocker Relationship Specialty Start Date End Date Jose E Dye MD [address] [place] [address] Dr Reza [place] PCP - General 03/23/22
--- OUTSIDE RECORDS SUMMARY | 2025-02-26 07:35 | XMS_ITS | Data Portability ---
Author Organization [facility] Address [address] [facility] [address] [place] [address] Care Team Providers Care Industrial Sweeper Cleaner Name Role Phone JUAN DIANA Primary Care Provider Assessment Encounter Date Assessment Date Assessment LastModified [...] for the same . He needs a cdl team truck driver on the day of the procedure. He [...] By Organization Details Last Modified Time 10/01/2019 92140 He was advised against bed rest lasting longer than four days and to continue activities as tolerated. [email or web address] Not available 10/01/2019 15:00:53 11/06/2019 13104 He was advised against bed rest lasting longer than four days and to continue activities as tolerated. [email or web address] Not available 11/07/2019 15:31:00 11/30/2019 61375 He was advised against bed rest lasting longer than four days and to continue activities as tolerated. [email or web address] Not available 12/07/2019 14:27:38 Reason for Referral None Reported. Problems Name Problem SNOMED Code Status Onset Date Resolution Date Notes Provider Name and Address Organization Details Recorded Time Degeneration of lumbar intervertebral disc 18185767 Active Lovely holland MD [address] [facility] , [address], [place], [address], [place] [facility] 0 08:48:18 Lumbar post-laminecto my syndrome 764339172 Active Lovely holland MD [address] [facility] , [address], [place], [address], [place] [facility] 0 08:48:29 Lumbosacral spondylosis without myelopathy 51443408 Active Lovely holland MD [address] [facility] , [address], [place], [address], [place] [facility] 0 08:48:57 Spinal stenosis of lumbar region 63794580 Active Lovely holland MD [address] [facility] , [address], [place], [address], [place] [facility] 0 08:49:09 Lumbosacral radiculopathy 8471638 Active Lovely holland MD [address] [facility] , [address], [place], [address], [place] [facility] 0 08:49:33 Problem Notes None recorded. Procedures Surgical History Date Name Laterality Status Provider Name and Address Organization Details Recorded Time 11/06/19 20 Fluoroscopic Guided Lumbar Facet Steroid Injections of levels completed Lovely Ngo MD [address] [email or web address] , [address], [place], [address], [place] [facility] 11/07/2019 15:36:46 Back Surgery completed Lovely Ngo MD [email or web address] , [address], [place], [address], [place] [facility] 10/01/2019 11:26:13 total replacement of hip completed Lovely Ngo MD [email or web address] , [address], [place], [address], [place] [facility] 10/01/2019 11:27:04 Knee arthroscopy/surg hien completed Lovely Ngo MD [email or web address] , [address], [place], [address], [place] [facility] 10/01/2019 11:28:52 Eye Surgery completed Lovely Ngo MD [email or web address] , [address], [place], [address], [place] [facility] 10/01/2019 11:29:21 [...] (BMI) Body weight Heart rate Oxygen saturation Pain severity - 0-10 verbal numeric rating [Score] - Reported Systolic And Diastolic Provider Name and Address Organization Details Last Updated DateTime 0 177.8 cm 35.9 kg/m2 597450. 09 g 67 /min 97 % 7 129/68 mm[Hg] Lovely holland MD [email or web address] , [address], [facility] [place], [address], [place] - [facility] 0 11:15:29 Date Recorded Body height Heart rate Oxygen saturation Systolic And Diastolic Provider Name and Address Organization Details Last Updated DateTime 11/06/2019 177.8 cm 77 /min 97 % 134/56 mm[Hg] Nimo Hannawell [facility] Pain Management 11/06/2019 11:05:05 Social History Question Answer Notes LastModified by Organizat [employer] Details LastModified Time Tobacco Smoking Status Current Every Day Smoker Lovely Ngo MD [address] [facility] , [address], [place], [address] - Pain Management 10/01/2019 11:23:47 [...] ICD10 Code Diagnosis IMO Codes Diagnosis Note [id number] Lovely Ngo MD PAIN OFFICE [address] [facility],[address] [place] [address] 10/01/2019 10:55:38 10/01/2019 15:57:23 Lumbar post-laminectomy syndrome 333251621 M96.1 Lumbosacra l spondylosis without myelopathy 94320208 M47.817 Spinal keiry nosis of lumbar region 82097142 M48.061 Degenerati on of lumbar intervertebral disc 91572345 M51.36 21033 Lovely Ngo MD PAIN OFFICE [address] [facility] [place] [address] 11/06/2019 10:41:07 11/07/2019 15:39:16 Lumbar post-laminectomy syndrome 356622133 M96.1 Lumbosacra l spondylosis without myelopathy 85822060 M47.817 Spinal keiry nosis of lumbar region 92435583 M48.061 Degenerati on of lumbar intervertebral disc 12732007 M51.36 61567 Lovely Ngo MD PAIN OFFICE [address] [facility] [place] [address] 11/30/2019 10:33:41 12/07/2019 14:29:24 Lumbar post-laminectomy syndrome 510281391 M96.1 Lumbosacra l spondylosis without myelopathy 12201529 M47.817 Spinal keiry nosis of lumbar region 45423535 M48.061 Degenerati on of lumbar intervertebral disc 49819695 M51.36 Health Concerns Section Related Observation LastModified by Organization Detai ls LastModified Time None Recorded Concern Status LastModified by Organization Details LastModified Time None Recorded Advance Directives Directive None Recorded Payers Insurance Date Sequence Insurance Name Policy Number Policy Leigh Covered Member ID Leigh Member ID Guarantor Name 09/28/[address] [facility] - DOS PRIOR TO 2022 - DUAL ELIGIBLE (MEDICARE REPLACEMENT/ADV ANTAGE - HMO) Alejandro Caruso [id number] Alejandro Caruso Notes Date Note Type Note [...] nerve roots.He has trialed physical therapy at [facility] and [facility] with some pain benefit. He has trialed injections at [facility] with no pain benefit. Lovely Ngo MD [address] [facility] , [address], [place], [address], [facility] - Pain Management 10/03/2019 08:41:08 11/06/2019 text/html He is here for a right lumbar facet joint injection under fluoroscopic guidance Lovely Ngo MD [address] [facility] , [address], [place], [address], [place] - Pain Management 11/07/2019 16:38:20 11/30/2019 text/html This is a follow up visit after a lumbar facet joint injection under fluoroscopic guidance. He reports no pain benefit. He has had injections at [facility] and [facility] in the past and injections have not helped his pain. Lovely Ngo MD [address] [facility] , [address], [place], [address], [place] - Pain Management 12/10/2019 10:22:14
[2025-02-26 10:58] LABS: MANUAL DIFF FLAG NO
[2025-02-26 11:03] LABS: Hematocrit 34.6 % (42.0-52.0); Hemoglobin 11.6 g/dl (14.0-18.0); Imm Gran Abs Auto 0.02 X10*3/uL (0.00-0.03); Imm Gran Pct Auto 0.2 % (0.0-0.4); Lymphocytes Absolute Auto 2.1 X10*3/uL (1.2-4.9); Mean Corpuscular HGB Conc 33.5 g/dl (31.0-36.0); Mean Corpuscular Hemoglobin 30.9 pg (27.0-33.0); Mean Corpuscular Volume 92.3 fL (80.0-98.0); NRBC Abs Auto 0.000 X10*3/uL (0.0-0.012); NRBC Pct Auto 0.0 /100WBC (0.0-0.2); Platelet Count 254 X10*3/uL (160-400); Red Blood Count 3.75 X10*6/uL (4.60-5.80); White Blood Count 8.3 X10*3/uL (4.8-10.8)
[2025-02-26 11:13] LABS: Appearance Urine Clear; Glucose Urine UA Negative (Negative); PH 5.5 (5.0-9.0); Specific Gravity - Urine 1.010 (1.005-1.025); UMIC TRIGGER UACC YES
[2025-02-26 11:27] LABS: Alanine Aminotransferase 14 U/L (0-40); Albumin Level 3.7 g/dL (3.5-5.0); Alkaline Phosphatase 56 U/L (39-117); Anion Gap 7 (12-20); Aspartate Amino Transferase 25 U/L (5-37); Blood Urea Nitrogen 14 mg/dL (9-16); Calcium 8.7 mg/dL (8.4-10.2); Carbon Dioxide 27 mmol/L (22-29); Chloride 104 mmol/L (96-108); Cholesterol 140 mg/dL (<200); Estimated Glomerular Filt Rate > 60; HDL Cholesterol 37 mg/dL (>40); Potassium 4.0 mmol/L (3.3-5.1); Sodium 134 mmol/L (135-145); Total Protein 6.2 g/dL (6.5-8.0); Triglycerides 107 mg/dL (<150)
[2025-02-26 11:51] LABS: Folate 7.9 ng/mL (> or = 4.0); Vitamin B12 338 pg/mL (200-900)
== END 2025-02-26 07:33 | disposition home or self-care (01) ==
LOC: HO.WFDLDS 07:32
PROVIDERS: Visit Provider Family Medicine
DX: Z00.00 Encounter for general adult medical examination without abnormal findings (principal); Z51.81 Encounter for therapeutic drug level monitoring; Z12.5 Encounter for screening for malignant neoplasm of prostate; E53.8 Deficiency of other specified B group vitamins; E55.9 Vitamin D deficiency, unspecified; F11.90 Opioid use, unspecified, uncomplicated; M54.50 Low back pain, unspecified; G89.29 Other chronic pain; I10 Essential (primary) hypertension; R73.01 Impaired fasting glucose
CPT/HCPCS: 80053; 80061; 80307; 80365; 81001; 82306; 82570; 82607; 82746; 83036; 84153; 84443; 85025; G0480

== ENCOUNTER 2025-03-11 13:49 | Outpatient (AMB) | payer MEDICARE, SELFPAY ==
--- OUTSIDE RECORDS SUMMARY | 2022-01-30 14:40 | XMS_ITS | Encounter Summary ---
Author Organization [facility] Address [address] [place] [phone] Phone Care Team Providers Care Test Specialist Name Role Phone Jose E Dye MD Primary Care Provider Encounter Details Date Type Department Care Team (Late st Contact Info) Description 01/30/2022 2:40 PM EST Hospital Encounter [facility] [address] [place] [phone] Gisela Redd FNP [address] [place] [address] [email or web address] Social History Tobacco Use Types Packs/Day Years [...] the right lateral 10th rib. Gisela Redd COMPARATOR OPERATOR IMG XR CHEST Final Resul t documented in this encounter Visit Diagnoses Not on filedocumented in this encounter Care Teams Test Specialist Relationship Specialty Start Date End Date Jose E Dye MD PCP - General Family Medicine 01/30/22 09/28/23 documented as of this encounter Additional Source Comments The information contained in this document represents components of the legal health record. It is not the complete legal health record.[facility]
--- OUTSIDE RECORDS SUMMARY | 2022-10-27 07:25 | XMS_ITS | Encounter Summary ---
Author Organization [facility] Address [address] [place] [phone] Phone Care Team Providers Care Electronic Commerce Specialist Name Role Phone Jose E Dye MD Primary Care Provider Encounter Details Date Type Department Care Team (Late st Contact Info) Description 10/27/2022 8:25 AM EDT Hospital Encounter [facility] [address] [place] [phone] Kat Gay CNP [address] [place] [address] Social History Tobacco Use Types Packs/Day Years [...] Correlation with point tenderness. us Kat Gay WATER CHASER IMG XR UPPER EXTREMITY Terrie l Result documented in this encounter Visit Diagnoses Not on filedocumented in this encounter Care Teams Electronic Commerce Specialist Relationship Specialty Start Date End Date Jose E Dye MD PCP - General Family Medicine 01/30/22 09/28/23 documented as of this encounter Additional Source Comments The information contained in this document represents components of the legal health record. It is not the complete legal health record.[facility]
--- OUTSIDE RECORDS SUMMARY | 2022-12-09 12:45 | XMS_ITS | Encounter Summary ---
Author Organization [facility] Address [address] [place] [phone] Phone Care Team Providers Care Dividing Machine Operator Helper Name Role Phone Jose E Dye MD Primary Care Provider Encounter Details Date Type Department Care Team (Late st Contact Info) Description 12/09/2022 1:45 PM EDT Hospital Encounter [facility] [address] [place] [phone] Manasa Middleton PA-C, MS [address] [place] [address] [email or web address] Social History Tobacco Use Types Packs/Day Years [...] on filedocumented in this encounter Care Teams Dividing Machine Operator Helper Relationship Specialty Start Date End Date Jose E Dye MD PCP - General Family Medicine 01/30/22 09/28/23 documented as of this encounter Additional Source Comments The information contained in this document represents components of the legal health record. It is not the complete legal health record.[facility]
--- OUTSIDE RECORDS SUMMARY | 2024-01-27 08:31 | XMS_ITS | Encounter Summary ---
Author Organization [facility] Address [address] [place] [phone] Phone Care Team Providers Care Director Life Sciences Name Role Phone Jose E Dye MD Primary Care Provider Encounter Details Date Type Department Care Team (Late st Contact Info) Description 01/27/2024 8:31 AM EST Hospital Encounter [facility] [address] [place] [phone] Gisela Redd FNP [address] [place] [address] [email or web address] Social History Tobacco Use Types Packs/Day [...] report originallycreated by Will Aden. Gisela Redd FLOORLEADER IMG XR UPPER EXTREMITY Terrie l Result documented in this encounter Visit Diagnoses Not on filedocumented in this encounter Care Teams Director Life Sciences Relationship Specialty Start Date End Date Jose E Dye MD PCP - General Family Medicine 01/27/24 documented as of this encounter Additional Source Comments The information contained in this document represents components of the legal health record. It is not the complete legal health record.[facility]
--- NOTE | 2025-03-11 13:52 | MHC.PC.OV ---
Vital Signs 03/11/25 13:56 Height 5 ft 10 in Weight 200 lb BMI 28.7 BP 132/62 Blood Pressure Location Lt brachial Position Sitting Respiration 16 Pulse 69 Pulse Source Pulse Oximeter Temp 97.4 F Temp Source Oral Pulse Oximetry (%) 100 Oxygen Delivery Method Room Air Intake Visit Reasons: chronic pain Intake Note: patient here for follow up on chronic pain and labs Supervisor Steno Pool Required: No Allergies Seasonal Allergies Allergy (Severe, Verified 03/11/25 13:55) Sneezing Medication List - Last Reconciled 03/11/25 by Jose E Dye MD clonazepam 1 mg PO Q8H 30 days losartan 50 mg PO QAM 90 days meloxicam 15 mg PO DAILY 30 days omeprazole 20 mg PO DAILY oxycodone 5 mg PO DAILY PRN 30 days oxycodone ER 10 mg PO DAILY 18 days pramipexole 0.25 mg PO BEDTIME 90 days prednisone 40 mg (2 x 20 mg) PO DAILY 5 days prednisone 5 mg PO DAILY 30 days Tobacco use date assessed: 03/11/25 Dental Screening Dental Screen Date: 03/11/25 Did you have a dental visit in the last 12 months?: No Did you have a dental problem in the last 6 months where you did not have access to dental care?: No Was dental information given to patient?: No HPI chronic pain HPI Details 55 y/o male presents to f/u chronic pain. Following p on recommendations from Neurosurgery, Dr. Parker and f/u on lab work. Had seen neurosurgery 02/22/25. They had sent prescription for lyrica. They noted if no improvement, they would consider a trial of low dose prednisone such as 5mg/day. [facility] Medical History (Updated 09/07/24 @ 09:13 by Lobo Hunt) Chronic pain syndrome Disc degeneration, lumbar Mild anemia Osteoarthritis GERD (gastroesophageal reflux disease) Depression with anxiety Claustrophobia HTN (hypertension) Arthritis Surgical History History of esophagogastroduodenoscopy (EGD) Hx of colonoscopy History of hip replacement H/O knee surgery History of spinal fusion Family History Father No problems noted. Mother No problems noted. Social History Household Members: Family Housing: House Are you a primary patient centered care specialist to a significant other at home: No Do you presently have visiting nurse or other home services: No Alcohol intake: never Patient Tobacco Use Status: Former Tobacco user Tobacco use type: Cigarette Cigarette Packs Per Day: 1 Cigarettes Per Day: 5 Years Smoked: 30 e-Cigarette/Vaping Use: Never Used Second Hand Smoke Exposure: No Substance Use Type: Marijuana service: No Current occupational status: disabled Current occupation: rt hand Current occupational exposures/hazards: No Cognitive needs: No Hearing needs: No Vision needs: No Questionnaire Thrive Questionnaire Date Thrive assessed: 05/02/24 I am a: Parent/Caregiver What is your living situation today?: I have a place to live, but I am worried about losing it in the future Within the past 12 months, did the food you bought not last and you didn't have the money to get more?: Sometimes True Within the past 12 months, did you worry whether your food would run out before you got money to buy more?: Sometimes True Do you have trouble paying for medicines?: Yes Do you have trouble getting transportation to medical appointments?: No Do you have trouble paying your heating and electricity bill?: Yes Do you have trouble taking care of your child, family member or friend?: No Do you have trouble with day-to-day activities such as bathing, preparing meals, shopping, managing finances, etc.?: Yes Are you currently unemployed and looking for a job?: I choose not to answer this question Are you interested in more education?: No Currently or been in a relationship where the following occur: No concerns reported THRIVE Score: 4 GISSEL-7 AMB Questionnaire GISSEL-7 Date GISSEL - 7 assessed: 04/26/23 Source: Developed by Drs. Mika Nguyen, Valorie Chen, Ram[facility]rez House and colleagues, with an educational jonas from [employer]. Physical exam (Primary Care) Vital Signs: Last Vital Signs Temp 97.4 F 03/11/25 13:56 Pulse 69 03/11/25 13:56 Resp 16 03/11/25 13:56 BP 132/62 03/11/25 13:56 Pulse Ox 100 03/11/25 13:56 Oxygen Delivery Method Room Air 03/11/25 13:56 BMI result Body Mass Index 28.7 Tobacco/Smoking Status: Tobacco use Status Tobacco use date assessed 03/11/25 03/11/25 14:00 Patient Tobacco Use Status Former Tobacco user 03/11/25 14:00 Tobacco use type Cigarette 03/11/25 14:00 e-Cigarette/Vaping Use Never Used 03/11/25 14:00 Thrive Assessment: Date of Thrive Assessment Date Thrive assessed 05/02/24 03/11/25 14:00 Currently or been in a relationship where the following occur: No concerns reported Coding Level of Care Code Est Pt Level 3 (16116) Diagnoses Chronic low back pain M54.50; G89.29 Assessment & Plan Assessment & Plan (1) Chronic low back pain: Code(s): M54.50 - Low back pain, unspecified; G89.29 - Other chronic pain Category: Medical Plan: Chronic low back pain and sciatica Patient has had prior back surgery and failed back syndrome. Most recently had foraminotomy at [facility] neuro spine without improvement. Sent him to Dr. Parker for 2nd opinion at patient request. No indication for further surgery at this time. Recommended a trial of Lyrica which has not helped at all. Also suggested that since prednisone is helping at times, a chronic low dose of prednisone at 5 mg daily could be considered. Patient unable to afford buprenorphine and insurance will no longer cover. Will try oxycodone ER 10 mg daily for long-acting coverage and he can use oxycodone immediate release 5 mg once daily PRN pain. Will also give a short burst of prednisone 40 mg daily x5 days then switch to 5 mg daily Recommend he also continue meloxicam p.r.n. pain before considering his immediate release oxycodone. Will follow Medications: New prednisone 5 mg PO DAILY 30 tabs 1RF 30 days oxycodone ER [facility] Verified. Partial Fill upon patient request. 10 mg PO DAILY 18 tabs 0RF 18 days Refilled prednisone 40 mg (2 x 20 mg) PO DAILY 10 tabs 0RF 5 days Discontinued buprenorphine 20 mcg/hour [facility] verified. Partial refill upon request. Discontinued Reason: Doctor's Order 1 patch transdermal QWEEK 28 days 4 ea 0RF pain control for sleep
[2025-03-11 13:56] VITALS: BP 132/62; PULSE 69; RESP 16; TEMP 36.3; O2SAT 100; BMI 28.7
--- OUTSIDE RECORDS SUMMARY | 2025-03-11 17:16 | XMS_ITS | Clinical Summary ---
Author Organization [facility] Address [address] [place] [address] Phone Care Team Providers Care Database Admin Name Role Phone Jose E Dye MD [...] 10/20/2018 Overview (01/15/2021): Pe rxrays 09/[facility] at [facility] ortho Dr. Ritter: severe bilateral femoral [...] Payer (Ef fective 2015-Present) Name:Vickie Carusoo Member ID:[id number] Relation to Subscriber:Self Name:Vickie Carusoo Subscriber ID:[id number] Payer ID:[id number] Group ID:Not on file Type:Medicare Address: [place] [address] [place] [id number] [employer] PPO MEDICARE REPLACEMENT MEDICARE PART A & B [employer] PPO MEDICARE REPLACEMENT MEDICARE PART A & B Care Teams Database Admin Relationship Specialty Start Date End Date Jose E Dye MD PCP - General Family Medicine 01/27/24 Additional Source Comments The information contained in this document represents components of the legal health record. It is not the complete legal health record.[facility]
--- OUTSIDE RECORDS SUMMARY | 2025-03-11 17:16 | XMS_ITS | Data Portability ---
Author Organization [facility] Address [address] [facility] [address] [place] [address] Care Team Providers Care Harness Worker Name Role Phone JUAN DIANA Primary Care [...] for the same . He needs a hazmat cdl a driver on the day of the procedure. [...] after a surgical consult with Dr. Duque. [email or web address] Not available 12/07/2019 14:28:51 Plan of Treatment [...] By Organization Details Last Modified Time 10/01/2019 23371 He was advised against bed rest lasting longer than four days and to continue activities as tolerated. [email or web address] Not available 10/01/2019 15:00:53 11/06/2019 78148 He was advised against bed rest lasting longer than four days and to continue activities as tolerated. [email or web address] Not available 11/07/2019 15:31:00 11/30/2019 71091 He was advised against bed rest lasting longer than four days and to continue activities as tolerated. [email or web address] Not available 12/07/2019 14:27:38 Reason for Referral None Reported. Problems Name Problem SNOMED Code Status Onset Date Resolution Date Notes Provider Name and Address Organization Details Recorded Time Degeneration of lumbar intervertebral disc 16386035 Active Lovely holland MD [address] [facility] , [address], [place], [address], [place] [facility] 0 08:48:18 Lumbar post-laminecto my syndrome 283012974 Active Lovely holland MD [address] [facility] , [address], [place], [address], [place] [facility] 0 08:48:29 Lumbosacral spondylosis without myelopathy 89412799 Active Lovely holland MD [address] [facility] , [address], [place], [address], [place] [facility] 0 08:48:57 Spinal stenosis of lumbar region 37772375 Active Lovely holland MD [address] [facility] , [address], [place], [address], [place] [facility] 0 08:49:09 Lumbosacral radiculopathy 0319926 Active Lovely holland MD [address] [facility] , [address], [place], [address], [place] [facility] 0 08:49:33 Problem Notes None recorded. Procedures Surgical History Date Name Laterality Status Provider Name and Address Organization Details Recorded Time 11/06/19 20 Fluoroscopic Guided Lumbar Facet Steroid Injections of levels completed Lovely Ngo MD [address] [facility] , [address], [place], [address], [place] [facility] 11/07/2019 15:36:46 Back Surgery completed Lovely Ngo MD [address] [facility] , [address], [place], [address], [place] [facility] 10/01/2019 11:26:13 total replacement of hip completed Lovely Ngo MD [address] [facility] , [address], [place], [address], [place] [facility] 10/01/2019 11:27:04 Knee arthroscopy/surg hien completed Lovely Ngo MD [address] [facility] , [address], [place], [address], [place] [facility] 10/01/2019 11:28:52 Eye Surgery completed Lovely Ngo MD [address] [facility] , [address], [place], [address], [place] [facility] 10/01/2019 11:29:21 [...] Updated DateTime 0 177.8 cm 35.9 kg/m2 909468. 09 g 67 /min 97 % 7 129/68 mm[Hg] Lovely holland MD [address] [facility] , [address], [facility] [place], [address], [place] - Pain Management 0 11:15:29 Date Recorded Body height Heart rate Oxygen saturation Systolic And Diastolic Provider Name and Address Organization Details Last Updated DateTime 11/06/2019 177.8 cm 77 /min 97 % 134/56 mm[Hg] Nimo Hannawell [facility] Pain Management 11/06/2019 11:05:05 Social History Question Answer Notes LastModified by Organizat [employer] Details LastModified Time Tobacco Smoking Status Current Every Day Smoker Lovely Ngo MD [address] [facility] , [address], [place], [address] - Pain Management 10/01/2019 11:23:47 [...] ICD10 Code Diagnosis IMO Codes Diagnosis Note 60039 Lovely Ngo MD PAIN OFFICE [address] [facility],[address] [place] [address] 10/01/2019 10:55:38 10/01/2019 15:57:23 Lumbar post-laminectomy syndrome 885601596 M96.1 Lumbosacra l spondylosis without myelopathy 95759773 M47.817 Spinal keiry nosis of lumbar region 93722328 M48.061 Degenerati on of lumbar intervertebral disc 16391287 M51.36 30206 Lovely Ngo MD PAIN OFFICE [address] [employer] [address] [facility] [place] [address] 11/06/2019 10:41:07 11/07/2019 15:39:16 Lumbar post-laminectomy syndrome 695847061 M96.1 Lumbosacra l spondylosis without myelopathy 82966484 M47.817 Spinal keiry nosis of lumbar region 37191715 M48.061 Degenerati on of lumbar intervertebral disc 67210806 M51.36 77690 Lovely Ngo MD PAIN OFFICE [address] [facility] [place] [address] 11/30/2019 10:33:41 12/07/2019 14:29:24 Lumbar post-laminectomy syndrome 805151238 M96.1 Lumbosacra l spondylosis without myelopathy 05205104 M47.817 Spinal keiry nosis of lumbar region 76157739 M48.061 Degenerati on of lumbar intervertebral disc 47237035 M51.36 Health Concerns Section Related Observation LastModified by Organization Detai ls LastModified Time None Recorded Concern Status LastModified by Organization Details LastModified Time None Recorded Advance Directives Directive None Recorded Payers Insurance Date Sequence Insurance Name Policy Number Policy Leigh Covered Member ID Leigh Member ID Guarantor Name 09/28/2019 1 [facility] - DOS PRIOR TO 2022 - DUAL ELIGIBLE (MEDICARE REPLACEMENT/ADV ANTAGE - HMO) Alejandro Caruso [id number] Alejandro Caruso Notes Date Note Type Note [...] nerve roots.He has trialed physical therapy at [facility] and [facility] with some pain benefit. He has trialed injections at [facility] and [facility] with no pain benefit. Lovely Ngo MD [address] [facility] , [address], [place], [address], [facility] - Pain Management 10/03/2019 08:41:08 11/06/2019 text/html He is here for a right lumbar facet joint injection under fluoroscopic guidance Lovely Ngo MD [address] [facility] , [address], [place], [address], [place] - Pain Management 11/07/2019 16:38:20 11/30/2019 text/html This is a follow up visit after a lumbar facet joint injection under fluoroscopic guidance. He reports no pain benefit. He has had injections at [facility] and [facility] in the past and injections have not helped his pain. Lovely Ngo MD [address] [facility] , [address], [place], [address], [place] - Pain Management 12/10/2019 10:22:14
--- OUTSIDE RECORDS SUMMARY | 2025-03-11 17:16 | XMS_ITS | Clinical Summary ---
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 He [...] 02/22/2025 8:45 AM EST Office Visit [facility] [place] [address] [place] [address] Giselle Vaughan MD Chronic bilateral low back [...] Done Comments Colorectal Cancer Screening: Colonoscopy 1968 Drug Screen 1968 Non-Opioid Controlled Substance Agreement 1968 Hepatitis B Vaccines (1 of 3 [...] Documents on File Type Date Recorded Patient Chargeback Analyst Expl anation Health Care Decision (hx) 10/21/2014 AD MATOS DIRECTIVE Health Care Decision (hx) 10/21/2014 AD MATOS DIRECTIVE Health Care Decision (hx) 10/19/2014 AD MATOS DIRECTIVE Health Care Decision (hx) 10/19/2014 AD [facility]OS DIRECTIVE Health Care Decision (hx) 10/17/2014 AD MATOS DIRECTIVE Health Care Decision (hx) 10/17/2014 AD MATOS DIRECTIVE Care Teams Ultrasound Specialist Relationship Specialty Start Date End Date Jose E Dye MD [address] [place] [address] Dr Reza [place] PCP - General 03/23/22
== END 2025-03-11 14:20 | disposition home or self-care (01) ==
LOC: HO.HMCFM 13:50
PROVIDERS: PCP Family Medicine; Visit Provider Family Medicine
DX: M54.50 Low back pain, unspecified (principal); G89.29 Other chronic pain

== ENCOUNTER → 2025-03-11 13:49 | Outpatient (BNVA) | payer MEDICARE, SELFPAY | PROVIDERS: PCP Family Medicine; Visit Provider Family Medicine | DX: M54.50 Low back pain, unspecified (principal); G89.29 Other chronic pain | CPT/HCPCS: 99212 ==